=== PATIENT | female | born 1955 | race Caucasian/White ===

== ENCOUNTER 2024-12-03 08:13 | Outpatient (AMB) | payer BC, SELFPAY ==
--- NOTE | 2024-12-03 08:19 | A.OFFPC_ITS ---
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 Required: No Allergies Penicillins Allergy (Severe, Verified 12/03/24 08:28) Unknown Sulfa (Sulfonamide Antibiotics) Allergy (Severe, Verified 12/03/24 08:28) Unknown lisinopril hctz Allergy (Severe, Uncoded 12/03/24 08:28) Anaphylaxis gentamycin Allergy (Mild, Uncoded 12/03/24 09:05) Itchy Eyes Medication List - Last Reviewed 12/03/24 by Cirilo Krueger MA amlodipine 10 mg PO DAILY blood sugar diagnostic (OneTouch Verio test strips) As directed blood sugar diagnostic (Blood Glucose Test strips) As directed buspirone 5 mg PO ONCE clobetasol 0.05% 1 appl topical BID clonidine HCl 0.05 mg PO DAILY fluconazole 150 mg PO Q3D lancets (OneTouch Delica Plus Lancet) As directed loratadine (Allergy Relief (loratadine)) 10 mg PO DAILY losartan 100 mg PO DAILY metformin 1,000 mg PO BID methocarbamol 750 mg PO Q8H naproxen 500 mg PO BID pantoprazole 40 mg PO DAILY semaglutide (Ozempic) 2 mg subcut QWEEK Tobacco use date assessed: 12/03/24 Fall risk assessment: 1 Fall in past year (trip over ) Last assessed Fall Risk: 12/03/24 Dental Screening Dental Screen Date: 12/03/24 Did you have a dental visit in the last 12 months?: No Did you have a dental problem in the last 6 months where you did not have access to dental care?: No Was dental information given to patient?: Patient declined HPI HPI Comments History of Present Illness Details 69-year-old female with diabetes type 2 with complication, hypertension, hyperlipidemia, fatty liver, obesity, chronic back pain, seasonal allergies, GERD Status post multiple orthopedic surgeries to include spinal surgery Here today to establish care. Recently moved from [place]. No previous medical records available. The patient reports that she was experiencing exertional shortness of breath associated with upper back pain. This has been ongoing for a few months. Reports that she was seen by a auditing manager and had a stress test done in [place] and reports that it was within normal limits. She reports that since this time her symptoms have worsened. She states she was able to walk 10,000 steps now she was only able to walk 3000 steps before she starts to experience symptoms. She denies any smoking. She also reports uncontrolled blood pressure. Her amlodipine was increased from 5 mg to 10 mg by her previous PCP in [place]. This has improved her reading some however she continues with high blood pressure. She monitors at home. The lowest that she has gotten is 150/78. She denies any swelling in her lower extremities. She was report chronic vomiting which she correlates with elevated blood pressure readings. She was also on Ozempic. She is unsure if the vomiting started before or after the Ozempic. The Ozempic is being used to manage her diabetes. She also takes a PPI for her chronic acid reflux and for vomiting. She reports a history of liver biopsy in the past. In regards to her diabetes management her A1c was done today and a 6.4%. She was managed on metformin along with Ozempic. She reports that she can not afford her Ozempic and wonders if she can change to something like an SGLT2 inhibitor. She is overdue for diabetic eye exam and we will be referred today. She complains of subjective memory complaints. Has a strong family history of Alzheimer's in his worried that she will develop Alzheimer's. She is interested in the neurology referral. Has generalized anxiety which is managed with buspirone. Health Maintenance: UTD on Flu Tdap 2020 Colon due for repeat Mammo DEXA Pap Exam Awake alert oriented Regular rate and rhythm Lung sounds clear to auscultation bilat No edema to bilateral lower extremities. Positive varicose veins. Mood and affect appropriate. No cognitive impairments noted during exam today Plan Referral to gastroenterology for her vomiting along with history of colonic polyps. Refer to Cardiology in order a stress test to evaluate her complaints of shortness of breath and pain that radiates into her back. Referral to Ophthalmology for a diabetic eye exam. Referral to Neurology for her concerns for Alzheimer's. Check routine screening labs to include some specific to address her neurological complaints. Continue all medications at the current time. Recommend a close interim follow up in about 3 weeks. Total time spent caring for the patient today was 60 minutes. This includes time spent before the visit reviewing the chart, time spent during the visit, and time spent after the visit on documentation, reviewing laboratory results, diagnostic imaging, medications, performing a medically necessary evaluation, counseling on diagnoses, care coordination, ordering appropriate tests, ordering appropriate medications, review of tests performed by other providers, reporting test results with the patient, communication with other healthcare providers. [facility] Medical History (Updated 12/03/24 @ 17:08 by VERONICA OrrTERRELL) Abnormal colonoscopy Anxiety Diabetes Exhaustion Hypertension Memory change Surgical History (Updated 12/03/24 @ 17:08 by MISA Orr) H/O cervical spine surgery H/O section H/O elbow surgery H/O eye surgery H/O wrist surgery History of back surgery Family History (Updated 12/03/24 @ 08:36 by Cirilo Krueger MA) Sister Mental health disorder Substance abuse Cardiovascular disease Hypertension Thyroid disease Advancing dementia Brother Cancer Cardiovascular disease Hypertension Paternal Grandfather Cancer Father Cardiovascular disease Hypertension Mother Hypertension Daughter Thyroid disease Social History (Updated 12/03/24 @ 08:31 by Cirilo Krueger MA) Household Members: Spouse Both parents involved: No Caregiver staying overnight: No Housing: House Are you a primary care navigator to a significant other at home: No Do you presently have visiting nurse or other home services: No 75 years or older and lives alone: No Alcohol intake: current Alcohol intake frequency: a few times a month Patient Tobacco Use Status: Never used Tobacco e-Cigarette/Vaping Use: Never Used Second Hand Smoke Exposure: No service: No Current occupational status: retired Cognitive needs: No Hearing needs: No Vision needs: No Questionnaire PHQ-9 Over the last 2 weeks, how often have you been bothered by any of the following problems? 1. Little interest or pleasure in doing things: not at all 2. Feeling down, depressed, or hopeless: not at all 3. Trouble falling or staying asleep, or sleeping too much: several days 4. Feeling tired or having little energy: nearly every day 5. Poor appetite or overeating: not at all 6. Feeling bad about yourself - or that you are a failure or have let yourself or your family down: not at all 7. Trouble concentrating on things, such as reading the newspaper or watching television: not at all 8. Moving or speaking so slowly that other people could have noticed. Or the opposite - being so fidgety or restless that you have been moving around a lot more than usual: not at all 9. Thoughts that you would be better off or of hurting yourself in some way: not at all Total score: 4 Depression Screening Interpretation: Positive Depression Screening Follow-up: Existing condition Depression Screening Done: Yes 14164 - PHQ-9 Billing: Yes Source: Developed by Drs. Bashir Pillai, Vivienne Brower, Kendall Meehan and colleagues, with an educational yuki from [employer]. Thrive Questionnaire Date Thrive assessed: 12/03/24 I am a: Patient What is your living situation today?: I have a steady place to live Within the past 12 months, did the food you bought not last and you didn't have the money to get more?: Never true Within the past 12 months, did you worry whether your food would run out before you got money to buy more?: Never true Do you have trouble paying for medicines?: No Do you have trouble getting transportation to medical appointments?: No Do you have trouble paying your heating and electricity bill?: No Do you have trouble taking care of your child, family member or friend?: No Do you have trouble with day-to-day activities such as bathing, preparing meals, shopping, managing finances, etc.?: No Are you currently unemployed and looking for a job?: No Are you interested in more education?: No Please select the resources that you would like help with: None Currently or been in a relationship where the following occur: No concerns reported THRIVE Score: 0 AUDIT C Alcohol Use Questionnaire (AUDIT-C) 1. How often do you have a drink containing alcohol?: Never 2. How many drinks containing alcohol do you have on a typical day when you are drinking?: 1 or 2 3. How often do you have six or more drinks on one occasion?: Never Total Score: 0 Score Reviewed/Action Taken: Yes KAREN-7 AMB Questionnaire KAREN-7 Date KAREN - 7 assessed: 12/03/24 Feeling nervous, anxious, or on edge: 0 = Not at all Not being able to stop or control worryin = Not at all Worrying too much about different things: 0 = Not at all Trouble relaxin = Not at all Being so restless that it is hard to sit still: 0 = Not at all Becoming easily annoyed or irritable: 0 = Not at all Feeling afraid as if something awful might happen: 0 = Not at all Total KAREN-7 score (0-4 normal; 5-9 mild; 10-14 moderate; 15-21 severe): 0 Source: Developed by Drs. Bashir Pillai, Vivienne Brower, Kendall Meehan and colleagues, with an educational yuki from [employer]. KAREN-7 Assessment Billing KAREN-7 Assessment Tool: KAREN-7 Assessment 57355 Physical exam (Primary Care) Vital Signs: Last Vital Signs Temp 96.9 F 12/03/24 08:39 Pulse 90 12/03/24 08:39 Resp 13 12/03/24 08:39 BP 142/78 H 12/03/24 08:39 Pulse Ox 96 12/03/24 08:39 Oxygen Delivery Method Room Air 12/03/24 08:39 BMI result Body Mass Index 34.0 BMI Assessment/Plan discussion: High BMI High, discussed plan: lifestyle Tobacco/Smoking Status: Tobacco use Status Tobacco use date assessed 12/03/24 12/03/24 08:51 Patient Tobacco Use Status Never used Tobacco 12/03/24 08:51 e-Cigarette/Vaping Use Never Used 12/03/24 08:51 PHQ-9: PHQ-9 Score PHQ-9: Total score 4 12/03/24 13:10 Depression Screening Interpretation: Positive Depression Screening Follow-up: Existing condition Thrive Assessment: Date of Thrive Assessment Date Thrive assessed 12/03/24 12/03/24 08:21 Currently or been in a relationship where the following occur: No concerns reported Results AMB Hemoglobin A1c AMB Hemoglobin A1c 6.4 % Last Edit by Cirilo Krueger MA on 12/03/24 10:02 Results Reviewed Results Reviewed: Laboratory Last Values Hgb A1c (Clinic) 6.4 % (4.0-6.0) H 12/03/24 08:56 Coding Level of Care Code New Pt Level 5 (23060) Complex EM visit Add On G2211 Diagnoses Diabetes mellitus type 2 with complications E11.8 Exertional shortness of breath R06.02 Iron deficiency anemia, unspecified iron deficiency anemia type D50.9 Iron deficiency anemia type: unspecified iron deficiency 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 Subjective memory complaints R41.89 Family history of Alzheimer disease Z82.0 Nausea and vomiting, unspecified vomiting type R11.2 Vomiting type: unspecified Nausea presence: with nausea Polyp of colon, unspecified part of colon, unspecified type K63.5 Colon polyp type: unspecified Colon location: unspecified part of colon Status post cataract extraction, unspecified laterality Z98.49 Laterality: unspecified laterality BMI 34.0-34.9,adult Z68.34 Obesity (BMI 30.0-34.9) E66.811 Additional Codes KAREN-7 Assessment Billing - KAREN-7 Assessment Tool: KAREN-7 Assessment 40414 ([id number]) PHQ-9 - 01798 - PHQ-9 Billing: Yes ([id number]) Assessment & Plan Assessment & Plan (1) Diabetes mellitus type 2 with complications: Comment: htn and hld Code(s): E11.8 - Type 2 diabetes mellitus with unspecified complications Category: Medical (2) Exertional shortness of breath: Code(s): R06.02 - Shortness of breath Category: Medical (3) Iron deficiency anemia: Code(s): D50.9 - Iron deficiency anemia, unspecified Category: Medical Qualifiers: Iron deficiency anemia type: unspecified iron deficiency Qualified Code(s): D50.9 - Iron deficiency anemia, unspecified (4) Hypertension: Code(s): I10 - Essential (primary) hypertension Category: Medical Qualifiers: Hypertension type: secondary to endocrine disorders Qualified Code(s): I15.2 - Hypertension secondary to endocrine disorders (5) Subjective memory complaints: Code(s): R41.89 - Other symptoms and signs involving cognitive functions and awareness Category: Medical (6) Family history of Alzheimer disease: Code(s): Z82.0 - Family history of epilepsy and other diseases of the nervous system Category: Medical (7) Vomiting: Code(s): R11.10 - Vomiting, unspecified Category: Medical Qualifiers: Vomiting type: unspecified Nausea presence: with nausea Qualified Code(s): R11.2 - Nausea with vomiting, unspecified (8) Colon polyp: Code(s): K63.5 - Polyp of colon Category: Medical Qualifiers: Colon polyp type: unspecified Colon location: unspecified part of colon Qualified Code(s): K63.5 - Polyp of colon (9) S/P cataract extraction: Code(s): Z98.49 - Cataract extraction status, unspecified eye Category: Surgical Qualifiers: Laterality: unspecified laterality Qualified Code(s): Z98.49 - Cataract extraction status, unspecified eye (10) BMI 34.0-34.9,adult: Code(s): Z68.34 - Body mass index [BMI] 34.0-34.9, adult Category: Medical (11) Obesity (BMI 30.0-34.9): Code(s): E66.811 - Obesity, class 1 Category: Medical Plan: . Plan . Orders: Orders Complete Blood Count no Diff Today E11.8 - Type 2 diabetes mellitus with unspecified complications, I10 - Essential (primary) hypertension, R41.89 - Other symptoms and signs involving cognitive functions and awareness Comprehensive Met. Panel Today E11.8 - Type 2 diabetes mellitus with unspecified complications, I10 - Essential (primary) hypertension, R41.89 - Other symptoms and signs involving cognitive functions and awareness Microalbumin, Random (w Creat) Today E11.8 - Type 2 diabetes mellitus with unspecified complications, I10 - Essential (primary) hypertension, R41.89 - Other symptoms and signs involving cognitive functions and awareness Vitamin B12 and Folate Today E11.8 - Type 2 diabetes mellitus with unspecified complications, I10 - Essential (primary) hypertension, R41.89 - Other symptoms and signs involving cognitive functions and awareness AMB Hemoglobin A1c Today Z13.9 - Encounter for screening, unspecified CA stress test Today I10 - Essential (primary) hypertension, R06.02 - Shortness of breath IRON PROFILE Today E11.8 - Type 2 diabetes mellitus with unspecified complications, I10 - Essential (primary) hypertension, R41.89 - Other symptoms and signs involving cognitive functions and awareness Lipid Panel Today E11.8 - Type 2 diabetes mellitus with unspecified complications, I10 - Essential (primary) hypertension, R41.89 - Other symptoms and signs involving cognitive functions and awareness TSH reflex Free T4 Today E11.8 - Type 2 diabetes mellitus with unspecified complications, I10 - Essential (primary) hypertension, R41.89 - Other symptoms and signs involving cognitive functions and awareness Vitamin D 25-OH Total Today E11.8 - Type 2 diabetes mellitus with unspecified complications, I10 - Essential (primary) hypertension, R41.89 - Other symptoms and signs involving cognitive functions and awareness Syphilis Screen Today R41.89 - Other symptoms and signs involving cognitive functions and awareness Referrals Gastroenterology Referral K63.5 - Polyp of colon, R11.10 - Vomiting, unspecified, Z12.11 - Encounter for screening for malignant neoplasm of colon Ophthalmology Referral E11.8 - Type 2 diabetes mellitus with unspecified complications, Z98.49 - Cataract extraction status, unspecified eye Cardiology Referral I10 - Essential (primary) hypertension, R06.02 - Shortness of breath Neurology Referral R41.89 - Other symptoms and signs involving cognitive fun ctions and awareness, Z82.0 - Family history of epilepsy and other diseases of the nervous system Patient Instructions: Walk-In Care (Urgent Care): We Make it Easy Walk-in for urgent medical issues such as: ? Seasonal Allergies ? Insect Bites ? Cough ? Diarrhea ? Acute Asthma Attacks ? Back, Knee or Joint Pain ? Ear Infection ? Fever without a Rash ? Headaches ? Nausea ? [place] Eye, Rash or Skin Irritation ? Sore Throat ? Sports Physicals ? Vomiting Most insurances are accepted. Patients do not need to be part of the [facility] to seek care at the walk-in clinic. Locations [facility] , [place] [address] ? [phone] [facility] in [place] provides services to ages 18 and over. Open Monday-Monday: 8 a.m. to 5 p.m. and Monday: 9 a.m. to 3 p.m.* *Hours may vary due to staffing availability. To confirm Walk-In Care hours in [place], please call [phone]. [address] [place] [address] ? [phone] [facility] [place] provides services to ages 12 and over. Open Monday-Monday: 8 a.m. to 5 p.m. Hours may vary due to staffing availability. To confirm Walk-In Care hours in [place], please call [phone]. LABORATORY SERVICES: [facility] Lab ? Primary Location [address] [place] [address] Monday through Monday 6:00 AM ? 5:00 PM Monday 7:00 AM ? 11:00 AM* [phone] The [facility] Lab is centrally located near the front entrance of the Medical Center for easy outpatient access. Convenient parking is provided for outpatients. *Hours may vary due to staffing availability. To confirm Laboratory hours for any location, please call [phone]. Offsite Location For your convenience, we offer offsite laboratory draw stations at the following locations: [address] [place] [address], [facility] ? [facility] [address] [facility], [address], [place] Monday through Monday 7:30 AM ? 1:00 PM* [phone] *Hours may vary due to staffing availability. To confirm Laboratory hours for any location, please call [phone]. [place] ? [address], [place] Monday through Monday 6:00 AM ? 3:30 PM* Monday 6:30 AM ? 3 PM* [phone] *Hours may vary due to staffing availability. To confirm Laboratory hours for any location, please call [phone] [place] [address] Monday through Monday 7:30 AM ? 4:00 PM* [phone] *Hours may vary due to staffing availability. To confirm Laboratory hours for any location, please call [phone] [place] [address] Monday through 9:00 AM ? 4:00 PM* *Hours may vary due to staffing availability. To confirm Laboratory hours for any location, please call [phone]. Appointments are not necessary. Walk-ins are welcome. Like all the departments throughout the [facility], our Lab undergoes frequent reviews to ensure the quality and accuracy of test results, and our staff takes special pride in its status as a nationally accredited facility. Patient Portal: ONE PATIENT. ONE RECORD. BETTER CARE. [facility] has a fully integrated, cutting- edge mobile electronic health information system that has revolutionized the way we care for our patients and manage our organization. This system improves communication and coordination enabling us to provide safe, higher-quality care, and an overall positive experience for staff and patients. Our first priority, as always, is to deliver the highest quality care possible. The system is running in the background supporting that priority. This portal is for all [facility] services and practices. If you are experiencing any technical difficulties with enrolling or logging into the Patient Portal please complete the [facility] Patient Portal Technical Support Form. [facility] now offers a new secure on-line interactive tool for patients to review their health information ? Patient Portal. This interactive web portal will enable patients and their families to take an active role in their care by providing easy, secure access to their health information via the internet. The Patient Portal provides patients with instant access to their health information, including laboratory results, medications, allergies, demographic information, visit history, and more. In addition to managing their own care, parents and health care proxies with authorized consent will appreciate the ability to access the records of those individuals for whom they provide care. Please note: if you wish to gain access (Proxy) to another patient?s portal, you will be required to come to the Medical Records Department in person at [facility]. Both the patient giving proxy access and the proxy will need to provide photo identification and complete the appropriate authorization. The Patient Portal also allows track their appointments online. The [facility] Patient Portal also saves patients time by allowing them to submit updates to their demographic and contact information prior to their visits. Portal email notifications will also alert patients to any new activity on their portal, such as test results and new appointments. In order to initially enroll in the [facility] Patient Portal, you will need to enter some required information including the following: ? your [facility] Medical Record number ? your personal home email address ? name ? date of Please note: In order to enroll in the [facility] Patient Portal, we need to have your email address on file in your electronic medical record. The email address needs to be specific for one person (yourself) in order for your Portal enrollment to be successful. You can update your email address in person with our Registration staff when you are registering for a hospital visit. Otherwise, you will need to come to the Health Information Management (Medical Records) Department at [facility]. We are open from Monday ? Monday from 7:30 a.m. ? 4:30 p.m. You will be required to present a photo id. Once you have successfully enrolled in the Patient Portal, you will receive a one-time user id and password for the Portal, sent to your email address. This will allow you to log into the Patient Portal within 99 hrs and reset your own logon id and password, and define personal security questions. Once your permanent login and password have been set, you can log into the [facility] Patient Portal at any time via the blue button above or from the Portal Logon button on any page of the [facility] website. [facility] encourage all of our patients to enroll in Patient Portal as it presents a valuable opportunity for patients and their families to actively participate in their care and stay healthy Welcome to [facility]. We look forward to working with you.
[2024-12-03 08:39] VITALS: BP 142/78; PULSE 90; RESP 13; TEMP 36.1; O2SAT 96; BMI 34.0
== END 2024-12-03 09:19 | disposition home or self-care (01) ==
PROVIDERS: PCP Nurse Practitioner Family; Visit Provider Nurse Practitioner Family
DX: E11.8 Type 2 diabetes mellitus with unspecified complications (principal); R06.02 Shortness of breath; D50.9 Iron deficiency anemia, unspecified; I15.2 Hypertension secondary to endocrine disorders; R41.89 Other symptoms and signs involving cognitive functions and awareness; Z82.0 Family history of epilepsy and other diseases of the nervous system; R11.2 Nausea with vomiting, unspecified; K63.5 Polyp of colon; Z98.49 Cataract extraction status, unspecified eye; Z68.34 Body mass index [BMI] 34.0-34.9, adult; E66.811 Obesity, class 1

== ENCOUNTER → 2024-12-03 08:13 | Outpatient (BNVA) | payer BC, SELFPAY | PROVIDERS: PCP Nurse Practitioner Family; Visit Provider Nurse Practitioner Family | DX: E11.8 Type 2 diabetes mellitus with unspecified complications (principal); R06.02 Shortness of breath; D50.9 Iron deficiency anemia, unspecified; I15.2 Hypertension secondary to endocrine disorders; R41.89 Other symptoms and signs involving cognitive functions and awareness; R11.2 Nausea with vomiting, unspecified; K63.5 Polyp of colon; E66.811 Obesity, class 1; Z98.49 Cataract extraction status, unspecified eye; Z82.0 Family history of epilepsy and other diseases of the nervous system | CPT/HCPCS: 83036; 96127 ==

== ENCOUNTER 2024-12-03 09:41 | Outpatient (REF) | payer BC, SELFPAY ==
[2024-12-03 11:22] LABS: Hematocrit 44.2 % (37.0-47.0); Hemoglobin 14.9 g/dl (12.0-16.0); Mean Corpuscular HGB Conc 33.7 g/dl (31.0-35.0); Mean Corpuscular Hemoglobin 31.2 pg (27.0-33.0); Mean Corpuscular Volume 92.7 fL (80.0-98.0); Mean Platelet Volume 9.4 fL (9.4-12.3); Platelet Count 298 X10*3/uL (160-400); Red Blood Count 4.77 X10*6/uL (4.20-5.50); Red Cell Distribution Width 12.2 % (11.0-16.0); White Blood Count 6.3 X10*3/uL (4.8-10.8)
[2024-12-03 12:02] LABS: Creatinine Urine 27.68 mg/dL; Microalbum/Creatinine Ratio Ur 50.5 ug/mg cr (<30)
[2024-12-03 12:02] LABS: Syphilis Screen Nonreactive (Nonreactive)
[2024-12-03 12:16] LABS: Alanine Aminotransferase 114 U/L (0-31); Albumin Level 4.6 g/dL (3.5-5.0); Alkaline Phosphatase 172 U/L (39-117); Anion Gap 11 (12-20); Aspartate Amino Transferase 98 U/L (5-31); Bilirubin Total 0.4 mg/dL (0.0-1.0); Blood Urea Nitrogen 11 mg/dL (9-16); Calcium 10.4 mg/dL (8.4-10.2); Carbon Dioxide 28 mmol/L (22-29); Chloride 100 mmol/L (96-108); Cholesterol 177 mg/dL (<200); Estimated Glomerular Filt Rate > 60; Glucose Random 86 mg/dL (60-115); HDL Cholesterol 45 mg/dL (>40); Iron 134 mcg/dL (30-160); LDL Cholesterol Calculated 106 mg/dL (<100); Percent Iron Saturation 35 % (15-50); Potassium 4.1 mmol/L (3.3-5.1); Sodium 135 mmol/L (135-145); Total Iron Binding Capacity 386 mcg/dL (228-428); Total Protein 8.4 g/dL (6.5-8.0); Triglycerides 132 mg/dL (<150); Unsaturated Iron Binding 252 ug/dL
[2024-12-03 12:23] LABS: TSH reflex Free T4 2.01 uIU/mL (0.32-4.0); Vitamin D 25-OH Total 84.9 ng/mL (>30)
[2024-12-03 13:14] LABS: Folate > 20.0 ng/mL (> or = 4.0); Vitamin B12 236 pg/mL (200-900)
== END 2024-12-03 09:42 | disposition home or self-care (01) ==
LOC: HO.WFDLDS 09:41
PROVIDERS: Visit Provider Nurse Practitioner Family
DX: I10 Essential (primary) hypertension (principal); E11.8 Type 2 diabetes mellitus with unspecified complications; R41.89 Other symptoms and signs involving cognitive functions and awareness; Z79.899 Other long term (current) drug therapy
CPT/HCPCS: 36415; 80053; 80061; 82043; 82306; 82570; 82607; 82746; 83540; 84443; 85027; 86780

== ENCOUNTER → 2024-12-12 07:46 | Outpatient (BNV) | payer BC, SELFPAY | PROVIDERS: PCP Nurse Practitioner Family | DX: R06.02 Shortness of breath (principal); I49.3 Ventricular premature depolarization | CPT/HCPCS: 93016; 93018 ==

== ENCOUNTER 2024-12-18 07:49 | Outpatient (AMB) | payer BC, SELFPAY ==
--- NOTE | 2024-12-18 08:11 | MHC.PC.OV ---
Vital Signs 12/18/24 08:14 Height 5 ft Weight 173 lb 8 oz BMI 33.9 BP 124/70 Blood Pressure Location Rt brachial Position Sitting Respiration 14 Pulse 82 Pulse Source Pulse Oximeter Pulse Oximetry (%) 95 Oxygen Delivery Method Room Air Intake Visit Reasons: 3 weeks 30 min to fu on labs and stress test Intake Note: FOllow up lab results and stress test. Sore on toe, right foot. Edi Manager Required: No Allergies Penicillins Allergy (Severe, Verified 12/18/24 08:11) Unknown Sulfa (Sulfonamide Antibiotics) Allergy (Severe, Verified 12/18/24 08:11) Unknown adhesive Allergy (Intermediate, Verified 12/18/24 08:12) red patches lisinopril hctz Allergy (Severe, Uncoded 12/18/24 08:11) Anaphylaxis gentamycin Allergy (Mild, Uncoded 12/18/24 08:11) Itchy Eyes Medication List - Last Reconciled 12/18/24 by Ngoc Ordonez, STRUCTURED CABLING TECHNICIAN- amlodipine 10 mg PO DAILY blood sugar diagnostic (Gr8erMindsTouch Verio test strips) As directed blood sugar diagnostic (Blood Glucose Test strips) As directed buspirone 5 mg PO ONCE clobetasol 0.05% 1 appl topical BID clonidine HCl 0.05 mg PO DAILY dapagliflozin propanediol (Farxiga) 5 mg PO DAILY ferrous sulfate 325 mg PO DAILY lancets (Gr8erMindsTouch Delica Plus Lancet) As directed loratadine (Allergy Relief (loratadine)) 10 mg PO DAILY losartan 100 mg PO DAILY metformin 1,000 mg PO BID methocarbamol 750 mg PO Q8H naproxen 500 mg PO BID pantoprazole 40 mg PO DAILY Tobacco use date assessed: 12/18/24 Fall risk assessment: No Falls in past year Last assessed Fall Risk: 12/18/24 Dental Screening Dental Screen Date: 12/03/24 HPI HPI Comments History of Present Illness Details 69-year-old female with diabetes type 2 with complication, hypertension, hyperlipidemia, fatty liver, obesity, chronic back pain, seasonal allergies, GERD, b12 def Status post multiple orthopedic surgeries to include spinal surgery Health Maintenance: UTD on Flu Tdap 2020 Colon due for repeat Mammo ordered today DEXA ordered today Pap referred to [facility]o appt 12/25/24 Neuro Here today for routine follow up chronic conditions and discuss recent lab results. DM on metformin a1c 6.4 referred for dm eye + microalbum on ARB HTN controlled on current meds ^ LFT denies etoh use. No more vomiting after stopping ozempic. Liver bx 10 years ago in [place]. Referred to GI at last visit. Denies abd pain. Taking OTC vitamins/supplements B12 def w/o anemia: Reports normal diet, no etoh. HX of Iron def anemia : on Ferrous sulfate CBC and Iron WNL PARRA and CP: abnormal stress test. Nuc imaging waiting insurance auth. NO changes R 2nd toe: s/p pedicure, now w/ pustulse, pain near nail bed. Started a few days ago. Denies fever, chills. : vaginal dryness and irritation, worse w intercourse. Using steroids and lotion w/o relief Exam Awake alert oriented Regular rate and rhythm Lung sounds clear to auscultation bilat No edema to bilateral lower extremities. Positive varicose veins. Mood and affect appropriate. No cognitive impairments noted during exam today Right foot: Results: Labs from 12/03/2024 show a normal CBC, normal electrolytes, hemoglobin A1c of 6.4%, calcium of 10.4%, normal iron profile, elevated AST 98, elevated ALT 114, elevated alk phos 172, elevated total protein at 8.4, LDL 106 otherwise normal cholesterol profile, B12 the low end of normal at 236, vitamin-D normal 84.9, normal folate, normal TSH, elevated urine microalbumin creatinine ratio 58.5, syphilis negative Discussion Notes During today's visit, I discussed with the patient the implications of her previous abnormal stress test linked to episodes of exertional chest pain and dyspnea. A nuclear stress test has been advised, pending insurance authorization. I elaborated on the status of her diabetes management and suggested starting Farxiga, emphasizing that we aim to lower her A1c closer to 6%. Recognizing her vitamin B12 deficiency, I proposed supplementation with B12 2000 mcg daily. We explored treatment routes for her abnormal LFTs, potentially accentuated by past liver biopsy findings, directing her to a loss control representative for a comprehensive evaluation. For her gynecological concerns, I transitioned management to a specialist. Additionally, I recommended proper hygiene and antibiotics for the nail infection and reiterated the importance of adequate hydration and nutritional measures. We arranged for follow-up meetings to assess the effectiveness of the new medications and address any emerging health issues. Assessment and Plan 1. Paronychia: Prescribed doxycycline; discourage self-manipulation; recommend soaking in warm water with Epsom salt. 2. History Of Abnormal Stress Test With Exertional Symptoms Referral for nuclear stress testing upon insurance clearance; control contributory risk factors such as hypertension and diabetes. 3. Vitamin B12 Deficiency Start oral supplementation with B12; reassess levels during the next lab workup to ensure normalization. 4. Postmenopausal atrophic vaginitis Referral to gynecology; discussion of possible topical estrogen treatment; emphasize avoidance of topical steroids. 6. Hyperlipidemia Monitor cholesterol levels; dietary consulting, emphasizing lowering LDL-C; maintain prescribed agents as previously managed unless further lipidogram prompts a revisit. 7. Type 2 Diabetes Mellitus Continue metformin therapy; initiate Farxiga to improve glycemic control and provide renal and cardiovascular protection; recommend monitoring A1C levels in follow-up visits. 9. Elevated LFT: Referral to loss control representative for further exploration; prioritize potential contributing factors including medication and dietary habits. Mammo, DEXA ordered Patient was informed and verbally consented to the use of an ambient scribe for clinic note documentation during this visit. Patient Instructions - Start taking Farxiga as instructed in the morning with increased water intake. - Begin B12 supplement of 2000 mcg daily. - Use prescribed antibiotics for your foot infection. - Schedule and attend follow-up with a loss control representative regarding liver function. - Keep appointment with vice president compliance to address vaginal atrophy concerns. - For high copay issues with prescribed medications, reach out via patient portal. - Keep hydrated throughout the day to support renal health. - Resume dietary management for diabetes with goals to reduce HbA1c closer to 6%. - Attend scheduled mammogram and bone density screening around due time. - Report any unusual changes like persistent foot sore, unexpected infections, or discomfort. - Plan to return for follow-up in approximately 12 weeks, or sooner if required via portal outreach. Total time spent caring for the patient today was 45 minutes. This includes time spent before the visit reviewing the chart, time spent during the visit, and time spent after the visit on documentation, reviewing laboratory results, diagnostic imaging, medications, performing a medically necessary evaluation, counseling on diagnoses, care coordination, ordering appropriate tests, ordering appropriate medications, review of tests performed by other providers, reporting test results with the patient, communication with other healthcare providers. [facility] Medical History (Updated 12/18/24 @ 08:49 by Ngoc Ordonez, [facility]) Abnormal colonoscopy Anxiety Diabetes Exhaustion Hypertension Memory change Surgical History (Updated 12/03/24 @ 17:08 by Ngoc Ordonez [facility]) H/O cervical spine surgery H/O section H/O elbow surgery H/O eye surgery H/O wrist surgery History of back surgery Family History (Updated 12/03/24 @ 08:36 by Cirilo Krueger MA) Sister Mental health disorder Substance abuse Cardiovascular disease Hypertension Thyroid disease Advancing dementia Brother Cancer Cardiovascular disease Hypertension Paternal Grandfather Cancer Father Cardiovascular disease Hypertension Mother Hypertension Daughter Thyroid disease Social History (Updated 12/03/24 @ 08:31 by Cirilo Krueger MA) Household Members: Spouse Both parents involved: No Caregiver staying overnight: No Housing: House Are you a primary care support representative to a significant other at home: No Do you presently have visiting nurse or other home services: No 75 years or older and lives alone: No Alcohol intake: current Alcohol intake frequency: a few times a month Patient Tobacco Use Status: Never used Tobacco e-Cigarette/Vaping Use: Never Used Second Hand Smoke Exposure: No service: No Current occupational status: retired Cognitive needs: No Hearing needs: No Vision needs: No Questionnaire Thrive Questionnaire Date Thrive assessed: 11/27/24 I am a: Patient What is your living situation today?: I have a steady place to live Within the past 12 months, did the food you bought not last and you didn't have the money to get more?: Never true Within the past 12 months, did you worry whether your food would run out before you got money to buy more?: Never true Do you have trouble paying for medicines?: No Do you have trouble getting transportation to medical appointments?: No Do you have trouble paying your heating and electricity bill?: No Do you have trouble taking care of your child, family member or friend?: No Do you have trouble with day-to-day activities such as bathing, preparing meals, shopping, managing finances, etc.?: No Are you currently unemployed and looking for a job?: No Are you interested in more education?: No Please select the resources that you would like help with: None Currently or been in a relationship where the following occur: No concerns reported THRIVE Score: 0 KAREN-7 AMB Questionnaire KAREN-7 Date KAREN - 7 assessed: 12/03/24 Source: Developed by Drs. Bashir Pillai, Vivienne Brower, Kendall Meehan and colleagues, with an educational yuki from [employer]. Physical exam (Primary Care) Vital Signs: Last Vital Signs Pulse 82 12/18/24 08:14 Resp 14 12/18/24 08:14 BP 124/70 12/18/24 08:14 Pulse Ox 95 12/18/24 08:14 Oxygen Delivery Method Room Air 12/18/24 08:14 BMI result Body Mass Index 33.9 Tobacco/Smoking Status: Tobacco use Status Tobacco use date assessed 12/18/24 12/18/24 08:16 Patient Tobacco Use Status Never used Tobacco 12/18/24 08:16 e-Cigarette/Vaping Use Never Used 12/18/24 08:16 Thrive Assessment: Date of Thrive Assessment Date Thrive assessed 11/27/24 12/18/24 08:16 Currently or been in a relationship where the following occur: No concerns reported Coding Level of Care Code Est Pt Level 5 (32028) Complex EM visit Add On G2211 Diagnoses Abnormal stress test R94.39 Exertional shortness of breath R06.02 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 B12 deficiency E53.8 Elevated LFTs R79.89 Paronychia of second toe, right L03.031 Menopause Z78.0 Diabetes mellitus type 2 with complications E11.8 Vaginal atrophy N95.2 Assessment & Plan Assessment & Plan (1) Abnormal stress test: Code(s): R94.39 - Abnormal result of other cardiovascular function study Category: Medical (2) Exertional shortness of breath: Code(s): R06.02 - Shortness of breath Category: Medical (3) Hypertension: Code(s): I10 - Essential (primary) hypertension Category: Medical Qualifiers: Hypertension type: secondary to endocrine disorders Qualified Code(s): I15.2 - Hypertension secondary to endocrine disorders (4) B12 deficiency: Code(s): E53.8 - Deficiency of other specified B group vitamins Category: Medical (5) Elevated LFTs: Code(s): R79.89 - Other specified abnormal findings of blood chemistry Category: Medical (6) Paronychia of second toe, right: Code(s): L03.031 - Cellulitis of right toe Category: Medical (7) Menopause: Code(s): Z78.0 - Asymptomatic menopausal state Category: Medical (8) Diabetes mellitus type 2 with complications: Comment: htn and hld Code(s): E11.8 - Type 2 diabetes mellitus with unspecified complications Category: Medical (9) Vaginal atrophy: Code(s): N95.2 - Postmenopausal atrophic vaginitis Category: Medical Plan . Orders: Orders XR DEXA axial skeleton Today Z13.820 - Encounter for screening for osteoporosis, Z78.0 - Asymptomatic menopausal state MM tomosynthesis screening BI Today Z12.31 - Encounter for screening mammogram for malignant neoplasm of breast Referrals HEATING AND COOLING TECHNICIAN Referral N95.2 - Postmenopausal atrophic vaginitis, Z12.4 - Encounter for screening for malignant neoplasm of cervix Medications: New doxycycline hyclate 100 mg PO BID 14 caps 0RF 7 days dapagliflozin propanediol (Farxiga) 5 mg PO DAILY 90 tabs 0RF mecobalamin (vitamin B12) (B12 Active) ok to dispense what is available 2,000 mcg (2 x 1,000 mcg) PO DAILY 180 tabs 3RF
[2024-12-18 08:14] VITALS: BP 124/70; PULSE 82; RESP 14; O2SAT 95; BMI 33.9
== END 2024-12-18 08:55 | disposition home or self-care (01) ==
PROVIDERS: PCP Nurse Practitioner Family; Visit Provider Nurse Practitioner Family
DX: R94.39 Abnormal result of other cardiovascular function study (principal); R06.02 Shortness of breath; E11.8 Type 2 diabetes mellitus with unspecified complications; I15.2 Hypertension secondary to endocrine disorders; E53.8 Deficiency of other specified B group vitamins; R79.89 Other specified abnormal findings of blood chemistry; N95.2 Postmenopausal atrophic vaginitis; L03.031 Cellulitis of right toe; Z78.0 Asymptomatic menopausal state; Z68.33 Body mass index [BMI] 33.0-33.9, adult

== ENCOUNTER → 2024-12-18 07:49 | Outpatient (BNVA) | payer BC, SELFPAY | PROVIDERS: PCP Nurse Practitioner Family; Visit Provider Nurse Practitioner Family ==

== ENCOUNTER 2024-12-23 20:06 | Emergency (ER) | payer BC, SELFPAY ==
--- NOTE | ~2024-12-23 | XR_ITS ---
CLINICAL HISTORY: CP Chest X-ray, 2 Views COMPARISON: None FINDINGS: No consolidation. No pleural effusion. No pneumothorax. No cardiomegaly. No acute fracture. Cervical fusion hardware in place. IMPRESSION: No acute findings. This document has been electronically signed by: Skyler Castellano MD on 12/23/2024 21:21:43
[2024-12-23 20:23] VITALS: BP 171/81; PULSE 80; RESP 19; TEMP 36.6; O2SAT 98; BMI 33.8
--- NOTE | 2024-12-23 20:24 | ED.GENADULT ---
HPI - General Adult General Chief complaint: General Medical Stated complaint: BP dropped / weak Time Seen by Provider: 12/23/24 20:54 Source: patient Mode of arrival: ambulatory Limitations: no limitations History of Present Illness ED Provider: Dr. Renetta Gomez HPI narrative: Patient comes to the emergency room complaining of generalized malaise, not feeling well, 1 episode of chest pressure, blood pressure in the high 80s, weakness, generalized malaise. According to the patient, she has been having chest pressure, chest pain, shortness of breath with exertion. Patient states that on December 12, she had a cardiac stress test done here. Patient was informed that it was abnormal as patient developed chest pain, shortness of breath and also ST segment depressions on her EKG. Patient was told that she needs to get a nuclear stress it. However, yesterday patient had for the 1st time symptoms while sitting. They lasted for a few minutes and self-resolved. Patient states that she was concerned about her blood pressure being in the high 80s, states that she took her blood pressure several times and it was low. At this time, patient has no chest pain or shortness of breath. Related Data Home Medications ?Medication ?Instructions ?Recorded ?Confirmed amlodipine 10 mg tablet 10 mg PO DAILY 12/03/24 12/24/24 blood sugar diagnostic (Blood 12/03/24 12/18/24 Glucose Test strips) blood sugar diagnostic (OneTouch 12/03/24 12/18/24 Verio test strips) buspirone 5 mg tablet 5 mg PO ONCE 12/03/24 12/24/24 clobetasol 0.05 % topical ointment 1 appl topical BID 12/03/24 12/18/24 clonidine HCl 0.1 mg tablet 0.05 mg PO DAILY 12/03/24 12/24/24 lancets 33 gauge (OneTouch Delica 12/03/24 12/18/24 Plus Lancet) loratadine 10 mg capsule (Allergy 10 mg PO DAILY 12/03/24 12/24/24 Relief (loratadine)) losartan 100 mg tablet 100 mg PO DAILY 12/03/24 12/24/24 metformin 1,000 mg tablet 1,000 mg PO BID 12/03/24 12/24/24 methocarbamol 750 mg tablet 750 mg PO NEEDED 12/03/24 12/24/24 naproxen 500 mg tablet 500 mg PO BID 12/03/24 12/24/24 pantoprazole 40 mg tablet,delayed 40 mg PO USEASDIRECTD 12/03/24 12/24/24 release ferrous sulfate 325 mg (65 mg 325 mg PO DAILY 12/18/24 12/24/24 iron) tablet Previous Rx's ?Medication ?Instructions ?Recorded doxycycline hyclate 100 mg capsule 100 mg PO BID 7 days #14 caps 12/18/24 empagliflozin 10 mg tablet 10 mg PO DAILY #90 tabs 12/18/24 (Jardiance) mecobalamin (vitamin B12) 1,000 2,000 mcg (2 x 1,000 mcg) PO DAILY 12/18/24 mcg chewable tablet (B12 Active) #180 tabs Allergies Allergy/AdvReac Type Severity Reaction Status Date / Time Penicillins Allergy Severe Unknown Verified 12/23/24 20:27 Sulfa (Sulfonamide Allergy Severe Unknown Verified 12/23/24 20:27 Antibiotics) adhesive Allergy Intermediate red patches Verified 12/23/24 20:27 lisinopril hctz Allergy Severe Anaphylaxis Uncoded 12/23/24 20:27 gentamycin Allergy Mild Itchy Eyes Uncoded 12/23/24 20:27 Review of Systems Review of Systems: Constitutional : No Weight loss, No Fever, No Chills, No Night Sweats, No Fatigue, No Malaise ENT/Mouth : No Hearing loss, No Ear Pain, No Nasal Congestion, No Sinus Pain, No Hoarseness, No sore throat, No Rhinorrhea, No Swallowing Difficulty Eyes: No Eye Pain, No Swelling, No Redness, No Foreign Body, No Discharge, No Vision Changes Cardiovascular : Complaining of chest pressure with exertion, shortness of breath with exertion. One episode of hypotension, generalized malaise at rest, self-resolved. No symptoms at this time Respiratory : No Cough, No Sputum, No Wheezing, No Smoke Exposure, No Dyspnea Gastrointestinal : No Nausea, No Vomiting, No Diarrhea, No Constipation, No abdominal Pain, No Hematochezia, No Melena Genitourinary : no irregular bleeding, No Dysuria, No Urinary Frequency, No Hematuria, No Urinary Incontinence, No Urgency, No Flank Pain, No Urinary Flow Changes, No Hesitancy Musculoskeletal : No joint pain, No Myalgias, No Joint Swelling Skin : No Skin Lesions, No rash Neuro : No Weakness, No Numbness, No Paresthesias, No Loss of Consciousness, No Dizziness, No Headache Psych : No Anxiety/Panic, No Depression, No SI/HI/AH/VH, No Social Issues, Heme/Lymph: No Bruising, No Bleeding,No Lymphadenopathy Endocrine : No Polyuria, No Polydipsia, No Temperature Intolerance [facility] Past Medical History Medical History Exhaustion Memory change Anxiety Hypertension Diabetes Abnormal colonoscopy Surgical History (Updated 12/03/24 @ 17:08 by Ngoc Ordonez, [facility]) H/O eye surgery H/O cervical spine surgery History of back surgery H/O elbow surgery H/O wrist surgery H/O section Family History Family History (Updated 12/03/24 @ 08:36 by Cirilo Krueger MA) Sister Mental health disorder Substance abuse Cardiovascular disease Hypertension Thyroid disease Advancing dementia Brother Cancer Cardiovascular disease Hypertension Paternal Grandfather Cancer Father Cardiovascular disease Hypertension Mother Hypertension Daughter Thyroid disease Social History Social History (Updated 12/03/24 @ 08:31 by Cirilo Krueger MA) Household Members: Spouse Housing: House Are you a primary animal care attendant to a significant other at home: No Do you presently have visiting nurse or other home services: No Alcohol intake: former Patient Tobacco Use Status: Never used Tobacco Smoked in Last 30 Days: No e-Cigarette/Vaping Use: Never Used Second Hand Smoke Exposure: No Use of substances other than those prescribed or required for medical reasons: No Advance Directives: No Advance Directives Information Provided: No Do you have a plan to hurt others: No Plan service: No Current occupational status: retired Cognitive needs: No Hearing needs: No Vision needs: No Physical Exam ED Vital Signs: Vital Signs - 24 hr 12/23/24 20:23 12/23/24 21:18 12/23/24 21:19 Temperature 98 F Pulse Rate 80 75 79 Respiratory Rate 19 Blood Pressure 171/81 H 135/67 142/74 H Pulse Oximetry 98 Oxygen Delivery Method Room Air 12/23/24 21:20 12/23/24 22:44 12/23/24 22:44 Temperature 97.6 F Pulse Rate 73 77 81 Respiratory Rate 18 Blood Pressure 141/76 H 123/71 138/79 Pulse Oximetry 95 Oxygen Delivery Method Room Air 12/23/24 22:45 12/23/24 22:45 12/24/24 04:21 Temperature 97.7 F Pulse Rate 81 81 88 Respiratory Rate 16 Blood Pressure 138/71 131/79 124/73 Pulse Oximetry 95 Oxygen Delivery Method Room Air 12/24/24 06:57 12/24/24 08:00 12/24/24 11:01 Temperature Pulse Rate 66 73 Respiratory Rate 16 18 16 Blood Pressure 153/72 H 130/75 123/72 Pulse Oximetry 96 95 95 Oxygen Delivery Method Room Air Room Air BMI result Body Mass Index 33.0 Const Other: Appearance: Alert. Oriented X3. No acute distress. Eyes: Pupils equal, round and reactive to light. ENT: Pharynx normal. Neck: Normal inspection. Neck supple. No lymph nodes noted. No crepitus CVS: Normal heart rate and rhythm. Pulses normal. Normal S1 and S2 Respiratory: No respiratory distress. Breath sounds normal. No Wheezing. No rales Abdomen: Soft and nontender. No rigidity. No distention. Skin: Skin warm and dry. Normal skin color. Normal skin turgor. Extremities: No lower extremity edema. No Lacerations. No Rash Neuro: Oriented X 3. No motor deficit. No sensory deficit. Moving all extremities. No slurred speech. CN 2 through 12 grossly intact Psych: calm, cooperative, normal affect Course Course Course Narrative: This is an RME: Additional HPI, ROS, PE not included below will be deferred to primary provider. RME assessment and note performed by: Alyssa Nevarez PA-C This is a [id number], with a hx of diabetes type 2 with complication, hypertension, hyperlipidemia, fatty liver, obesity, chronic back pain, seasonal allergies, GERD, b12 def , who presents to the ER with a complaint of acute onset nausea, shortness of breath and left sided back pain/shoulder pain x 1 hour. Reports that she was walking down stairs and suddenly felt diffusely weak. She reports that she took her blood pressure and it was low, 80s over 40s. Reports that she recently failed a cardiac stress test Plan: Labs, EKG, viral swabs, chest x-ray, further ER evaluation needed. Medications Administered Generic Name Dose Route Start Last Admin Trade Name Freq PRN Reason Stop Dose Admin Heparin Sodium/Sodium Chloride 25,000 unit in 250 mls @ 0 mls/hr 12/24/24 06:45 12/24/24 06:45 Heparin Sodium,Porcine/1/2ns IVCONT 12 units/kg/hr .Q0M PETTY 9.19 mls/hr Administration Protocol Per Protocol Discontinued Medications Generic Name Dose Route Start Last Admin Trade Name Kristian PRN Reason Stop Dose Admin Aspirin 325 mg 12/24/24 05:20 12/24/24 05:49 Aspirin Enteric Coated 325 Mg Tablet.Dr LISA 12/24/24 05:21 325 mg ONCE ONE Administration Medical Decision Making Medical Decision Making [facility] Narrative: My interpretation of EKG, normal sinus rhythm, heart rate 79, no ST segment depression or elevation, no T-wave inversion, QTC 535 My interpretation of labs: Normal hematology, no significant abnormality in patient's chemistry, AST ALT and alk phos slightly bumped. Troponin x2 negative. Patient is asymptomatic, normal vitals. However, it is concerning that patient has stable angina and 1 episode of unstable angina. I discussed the patient with Dr. Sanders, transferring the patient would be the best for the patient. I called [facility] transfer line. At this time, they have no beds at all. At this time, patient is asymptomatic, normal EKG, troponin x2 negative. They recommendations is to call back in the morning after a.m. after the have some discharges, they may have discharges and then have beds available. I discussed the patient with our hospitalist Dr. Gray to admit the patient. It is likely that the patient may have a bed in the morning at [facility], but also, there is no guarantee that there will be a bed available. Since the patient is asymptomatic at this time, normal troponins and EKG, it is unlikely that they will give preference to this patient for an immediate transfer. Therefore, it would be best to keep the patient under the hospitalist service rather than in the emergency room without clear disposition. Dr. Gray recommends to keep the patient in the emergency room and get a Cardiology consult to have Dr. Sanders see the patient in the emergency room. We will monitor the patient in the emergency room. We will call back again this morning to check on bed disposition. Considered are no beds available, we may have to transfer the patient to [facility]. Patient is agreeable to go to [facility] if needed. However, patient is scared that her insurance will not cover it and she will have a huge [id number] bill to pay. I gave sign out ot my colleage Dr. Valente We decided to start the patient on heparin since she had her 1st episode of unstable angina yesterday. At this time, patient remains asymptomatic Blood pressure 124/73, heart rate 88, respirations 16 12/24/2024 Dr. Darian Valente's Notes: 08:43 I assumed care of this patient from my colleague, Dr. Renetta Lewis's at 05:[address] Lewis's did contact [facility] and they advised that we called him back at 08:00 hours determine if they had capacity to take the patient. 69-year-old female with a history of hypertension, diabetes mellitus, hyperlipidemia, fatty liver, obesity, GERD, exertional chest pain since May 2024 who presented to the emergency department for evaluation of chest pressure at rest with low blood pressure at home but elevated blood pressures here in the emergency department (171/81). She states that since being in the emergency department she was had episodes of chest pressure which have resolved and he was currently pain-free. Patient told me that she gets 2-3 episodes of chest pressure per week, mainly with exertion. Patient states that she was having elevated blood pressures and her PCP increased her amlodipine with some improvement of her hypertension, she has been able to walk around the mall but still gets chest pressure with exertion but he was not had any chest pain at rest. Prior to coming to the emergency department the patient developed chest pain at rest, took her blood pressure and it was 80 which concerned her therefore she came to the emergency department for evaluation. The patient did have a positive stress test on 12/12/2024, please see the report below. Patient recently moved from [place] and she states that she had a ?normal stress tests? 1 year prior in [place]. Laboratory evaluation revealed elevated LFTs consistent with her fatty liver. Two troponins were below detectable limits. EKG unremarkable. COVID-19, influenza and RSV were negative. I did discuss the patient's presentation with our covering cytology manager, Dr. Sanders. Given the positive stress test and the patient's chest pain at rest with possible hypotension he recommended that the patient be transferred to a tertiary facility that can evaluated the patient for consideration for non urgent cardiac catheterization. Patient was given aspirin 325 mg orally, given a heparin bolus and started on a heparin drip. I did discuss transfer with the [facility] and [facility] in both facilities are at capacity can not take this patient at this time. Acquisition Time: 2024-12-12 08:00:01 Total Exercise Time: 00:05:00 Test Indications: Dyspnea CP Medications: SEE H&P Protocol: STERLING Max HR: 136 BPM 90% of Pred: 151 BPM Max BP: 174/68 mmHG Max Work Load: 7.0 METS Exercise Stress Test with exercise 5 mins of Sterling Protocol, achieving 90% MPHR, with reports of severe SOB and 4/10 chest pressure that resolved slowly with recovery, with isolated PVC, with normotensive response to exercise. With ST depression in the inferior and anterolateral leads with exercise, baseline sagging ST. Recommend further testing with nuclear imaging. Test reviewed with Dr. Carvalho. Referred By: Ngoc Ordonez Electronically Signed By: Duane Cruz 10:28 I did contact the [facility] transfer line and spoke to Dr. Willingham at [facility] in [facility] . He did accept the patient as an ED to Hospital transfer. He will be transferred by ALS ambulance with the heparin drip running. Differential Diagnosis Differential Diagnoses: The differential diagnosis associated with the presentation includes (Stable angina, unstable angina, ACS) Admission/Observation Consideration of admission/observation: Escalation of care including admission/observation considered Consult Healthcare Provider Management of the patient was discussed with: Hospitalist and Remodeler Lab Data MDM Lab Attestation statement: I reviewed the patient's lab results. 12/24/24 10:19 12/23/24 20:53 Labs: Lab Results 12/23/24 12/23/24 12/24/24 Range/Units 20:53 23:16 06:13 WBC 9.0 (4.8-10.8) X10*3/uL RBC 4.50 (4.20-5.50) X10*6/uL Hgb 14.3 (12.0-16.0) g/dl Hct 41.5 (37.0-47.0) % MCV 92.2 (80.0-98.0) fL MCH 31.8 (27.0-33.0) pg MCHC 34.5 (31.0-35.0) g/dl RDW 12.1 (11.0-16.0) % Plt Count 232 (160-400) X10*3/uL MPV 8.8 L (9.4-12.3) fL Immature Gran % (Auto) 0.2 (0.0-0.4) % Neut % (Auto) 61.7 (45-73) % Lymph % (Auto) 24.0 (20-40) % [place] % (Auto) 9.5 (2-11) % Eos % (Auto) 3.5 (0-4) % Baso % (Auto) 1.1 (0-2) % Lymph # (Auto) 2.2 (1.2-4.9) X10*3/uL [place] # (Auto) 0.9 (0.1-1.2) X10*3/uL Eos # (Auto) 0.3 (0.0-0.4) X10*3/uL Baso # (Auto) 0.1 (0.0-0.2) X10*3/uL Abs Immat Gran (auto) 0.02 (0.00-0.03) X10*3/uL Absolute Neuts (auto) 5.5 (2.0-8.3) x10*3/uL Absolute Nucleated RBC 0.000 (0.0-0.012) X10*3/uL Nucleated RBC % (auto) 0.0 (0.0-0.2) /100WBC PT 11.2 (10.9-12.4) SEC INR 1.0 (0.9-1.1) APTT 29.8 (26.0-36.8) SEC aPTT Heparin Protocol (53-77.9) SEC Sodium 135 (135-145) mmol/L Potassium 4.3 (3.3-5.1) mmol/L Chloride 101 (96-108) mmol/L Carbon Dioxide 21 L (22-29) mmol/L Anion Gap 17 (12-20) BUN 15 (9-16) mg/dL Creatinine 0.85 (0.5-1.4) mg/dL Estim Creat Clear Calc 57.8 Estimated GFR > 60 POC Glucose (60-115) mg/dL Random Glucose 177 H (60-115) mg/dL Calcium 10.1 (8.4-10.2) mg/dL Magnesium 2.0 (1.6-2.6) mg/dL Total Bilirubin 0.4 (0.0-1.0) mg/dL Direct Bilirubin 0.2 (0.0-0.5) mg/dL AST 75 H (5-31) U/L ALT 103 H (0-31) U/L Alkaline Phosphatase 171 H (39-117) U/L Troponin I High Sens < 2.7 < 2.7 (<3.5-17.0) ng/L Total Protein 7.9 (6.5-8.0) g/dL Albumin 4.5 (3.5-5.0) g/dL Lipase 49 (8-78) U/L Urine Color Urine Appearance Urine pH (5.0-9.0) Ur Specific [place] (1.005-1.025) Urine Protein (Neg-Trace) mg/dL Urine Glucose (UA) (Negative) mg/dL Urine Ketones (Negative) mg/dL Urine Blood (Negative) Urine Nitrite (Negative) Ur Leukocyte Esterase (Negative) Influenza Type A (PCR) NEGATIVE (Negative) Influenza Type B (PCR) NEGATIVE (Negative) RSV RNA Qual (PCR) NEGATIVE (Negative) SARS-CoV-2 RNA (RT-PCR) NEGATIVE (Negative) 12/24/24 12/24/24 12/24/24 Range/Units 06:21 08:53 10:19 WBC 5.5 (4.8-10.8) X10*3/uL RBC 4.54 (4.20-5.50) X10*6/uL Hgb 14.4 (12.0-16.0) g/dl Hct 42.4 (37.0-47.0) % MCV 93.4 (80.0-98.0) fL MCH 31.7 (27.0-33.0) pg MCHC 34.0 (31.0-35.0) g/dl RDW 12.0 (11.0-16.0) % Plt Count 227 (160-400) X10*3/uL MPV 8.9 L (9.4-12.3) fL Immature Gran % (Auto) (0.0-0.4) % Neut % (Auto) (45-73) % Lymph % (Auto) (20-40) % [place] % (Auto) (2-11) % Eos % (Auto) (0-4) % Baso % (Auto) (0-2) % Lymph # (Auto) (1.2-4.9) X10*3/uL [place] # (Auto) (0.1-1.2) X10*3/uL Eos # (Auto) (0.0-0.4) X10*3/uL Baso # (Auto) (0.0-0.2) X10*3/uL Abs Immat Gran (auto) (0.00-0.03) X10*3/uL Absolute Neuts (auto) (2.0-8.3) x10*3/uL Absolute Nucleated RBC 0.000 (0.0-0.012) X10*3/uL Nucleated RBC % (auto) 0.0 (0.0-0.2) /100WBC PT 11.8 (10.9-12.4) SEC INR 1.0 (0.9-1.1) APTT (26.0-36.8) SEC aPTT Heparin Protocol 31.1 L (53-77.9) SEC Sodium (135-145) mmol/L Potassium (3.3-5.1) mmol/L Chloride (96-108) mmol/L Carbon Dioxide (22-29) mmol/L Anion Gap (12-20) BUN (9-16) mg/dL Creatinine (0.5-1.4) mg/dL Estim Creat Clear Calc Estimated GFR POC Glucose 123 H (60-115) mg/dL Random Glucose (60-115) mg/dL Calcium (8.4-10.2) mg/dL Magnesium (1.6-2.6) mg/dL Total Bilirubin (0.0-1.0) mg/dL Direct Bilirubin (0.0-0.5) mg/dL AST (5-31) U/L ALT (0-31) U/L Alkaline Phosphatase (39-117) U/L Troponin I High Sens (<3.5-17.0) ng/L Total Protein (6.5-8.0) g/dL Albumin (3.5-5.0) g/dL Lipase (8-78) U/L Urine Color Yellow Urine Appearance Clear Urine pH 6.5 (5.0-9.0) Ur Specific [place] <= 1.005 (1.005-1.025) Urine Protein Negative (Neg-Trace) mg/dL Urine Glucose (UA) Negative (Negative) mg/dL Urine Ketones Negative (Negative) mg/dL Urine Blood Negative (Negative) Urine Nitrite Negative (Negative) Ur Leukocyte Esterase Negative (Negative) Influenza Type A (PCR) (Negative) Influenza Type B (PCR) (Negative) RSV RNA Qual (PCR) (Negative) SARS-CoV-2 RNA (RT-PCR) (Negative) Independent Interpretation I performed an independent interpretation of an: Plain X-Ray Critical Care Time Critical Care Time Critical Care Time: Yes Total Critical Care Time: 90 Attestation: I have personally provided critical care time. Time includes review of lab data, radiology results, discussion with consultants, and monitoring for potential decompensation. Intervention performed as documented. Discharge Plan Discharge Clinical Impression: Unstable angina Patient Disposition: [facility] Transfer Details: [facility], [facility], accepting attending, Dr. Willingham Prescriptions: No Action Jardiance 10 mg tablet 10 mg PO DAILY Qty: 90 0RF amlodipine 10 mg tablet 10 mg PO DAILY buspirone 5 mg tablet 5 mg PO ONCE clobetasol 0.05 % ointment 1 appl topical BID clonidine HCl 0.1 mg tablet 0.05 mg PO DAILY Allergy Relief (loratadine) 10 mg capsule 10 mg PO DAILY losartan 100 mg tablet 100 mg PO DAILY metformin 1,000 mg tablet 1,000 mg PO BID methocarbamol 750 mg tablet 750 mg PO NEEDED Rx Instructions: every 8 hours as needed naproxen 500 mg tablet 500 mg PO BID pantoprazole 40 mg tablet,delayed release (DR/EC) 40 mg PO USEASDIRECTD Rx Instructions: once a day as needed (DME) lancets [OneTouch Delica Plus Lancet] 33 gauge misc See Rx Instructions .Route Rx Instructions: As directed (DME) OneTouch Verio test strips Strip See Rx Instructions .Route Rx Instructions: As directed (DME) Blood Glucose Test Strip See Rx Instructions .Route Rx Instructions: As directed ferrous sulfate 325 mg (65 mg iron) tablet 325 mg PO DAILY mecobalamin (vitamin B12) [B12 Active] 1,000 mcg tablet,chewable 2,000 mcg PO DAILY Qty: 180 3RF Rx Instructions: ok to dispense what is available doxycycline hyclate 100 mg capsule 100 mg PO BID 7 Days Qty: 14 0RF Rx Instructions: x 2 days Print Language: Croatian
--- NOTE | 2024-12-23 20:26 | ECG_ITS ---
Test Reason : CHEST AND BACK PAIN Blood Pressure : */* mmHG Vent. Rate : 79 BPM Atrial Rate : 79 BPM P-R Int : 180 ms QRS Dur : 92 ms QT Int : 380 ms P-R-T Axes : 37 4 44 degrees QTcB Int : 435 ms Normal sinus rhythm Normal ECG No previous ECGs available Referred By: Alyssa Nevarez Electronically Signed By: YVETTE SALCEDO
[2024-12-23 20:58] LABS: MANUAL DIFF FLAG NO
[2024-12-23 20:59] LABS: Basophils Absolute Auto 0.1 X10*3/uL (0.0-0.2); Basophils Percent Auto 1.1 % (0-2); Eosinophils Absolute Auto 0.3 X10*3/uL (0.0-0.4); Eosinophils Percent Auto 3.5 % (0-4); Hematocrit 41.5 % (37.0-47.0); Hemoglobin 14.3 g/dl (12.0-16.0); Imm Gran Abs Auto 0.02 X10*3/uL (0.00-0.03); Imm Gran Pct Auto 0.2 % (0.0-0.4); Lymphocytes Absolute Auto 2.2 X10*3/uL (1.2-4.9); Mean Corpuscular HGB Conc 34.5 g/dl (31.0-35.0); Mean Corpuscular Hemoglobin 31.8 pg (27.0-33.0); Mean Corpuscular Volume 92.2 fL (80.0-98.0); Mean Platelet Volume 8.8 fL (9.4-12.3); Monocytes Absolute Auto 0.9 X10*3/uL (0.1-1.2); Monocytes Percent Auto 9.5 % (2-11); Neutrophils Absolute Auto 5.5 x10*3/uL (2.0-8.3); Neutrophils Percent Auto 61.7 % (45-73); Platelet Count 232 X10*3/uL (160-400); Red Cell Distribution Width 12.1 % (11.0-16.0)
[2024-12-23 21:18] VITALS: BP 135/67; PULSE 75
[2024-12-23 21:18] LABS: Alanine Aminotransferase 103 U/L (0-31); Albumin Level 4.5 g/dL (3.5-5.0); Alkaline Phosphatase 171 U/L (39-117); Anion Gap 17 (12-20); Aspartate Amino Transferase 75 U/L (5-31); Bilirubin Direct 0.2 mg/dL (0.0-0.5); Bilirubin Total 0.4 mg/dL (0.0-1.0); Blood Urea Nitrogen 15 mg/dL (9-16); Calcium 10.1 mg/dL (8.4-10.2); Carbon Dioxide 21 mmol/L (22-29); Chloride 101 mmol/L (96-108); Creatinine Clr Calc Pharmacy 57.8; Estimated Glomerular Filt Rate > 60; Glucose Random 177 mg/dL (60-115); Lipase 49 U/L (8-78); Potassium 4.3 mmol/L (3.3-5.1); Sodium 135 mmol/L (135-145); Total Protein 7.9 g/dL (6.5-8.0)
[2024-12-23 21:19] VITALS: BP 142/74; PULSE 79
[2024-12-23 21:20] VITALS: BP 141/76; PULSE 73
[2024-12-23 21:27] LABS: Troponin-I High Sensitivity < 2.7 ng/L (<3.5-17.0)
[2024-12-23 21:40] LABS: Influenza A PCR NEGATIVE (Negative); Influenza B PCR NEGATIVE (Negative); Resp Syncy Virus RNA Qual PCR NEGATIVE (Negative); SARS COV2 PCR INHOUSE NEGATIVE (Negative)
[2024-12-23 22:44] VITALS: BP 123/71; BP 138/79; PULSE 77; PULSE 81; RESP 18; TEMP 36.4; O2SAT 95
[2024-12-23 22:45] VITALS: BP 131/79; BP 138/71; PULSE 81
[2024-12-23 23:50] LABS: Troponin-I High Sensitivity < 2.7 ng/L (<3.5-17.0)
[2024-12-24 04:21] VITALS: BP 124/73; PULSE 88; RESP 16; TEMP 36.5; O2SAT 95
[2024-12-24] MEDS: Aspirin Enteric Coated 325 MG TABLET.DR PO (05:49)
[2024-12-24 06:20] VITALS: BMI 33.0
[2024-12-24 06:27] LABS: Appearance Urine Clear; Color Urine Yellow; Glucose Urine UA Negative (Negative); Leukocyte Esterase Urine Negative (Negative); Nitrite Urine Negative (Negative); PH 6.5 (5.0-9.0); Specific Gravity - Urine <= 1.005 (1.005-1.025); Urine Blood Negative (Negative); Urine Ketones Negative (Negative); Urine Protein Negative (Neg-Trace)
[2024-12-24 06:29] LABS: Prothrombin Time 11.2 SEC (10.9-12.4)
[2024-12-24 06:32] LABS: Partial Thromboplastin Time 29.8 SEC (26.0-36.8)
[2024-12-24] MEDS: Heparin Sodium,Porcine/1/2NS 25,000 UNIT/250 ML IV.SOLN 9.19 UNIT IVCONT (06:45)
[2024-12-24 06:57] VITALS: BP 153/72; PULSE 66; RESP 16; O2SAT 96
[2024-12-24 08:00] VITALS: BP 130/75; RESP 18; O2SAT 95
[2024-12-24 08:56] LABS: Glucose, Whole Blood 123 mg/dL (60-115)
[2024-12-24 10:24] LABS: Hematocrit 42.4 % (37.0-47.0); Hemoglobin 14.4 g/dl (12.0-16.0); Mean Corpuscular Hemoglobin 31.7 pg (27.0-33.0); Mean Corpuscular Volume 93.4 fL (80.0-98.0); Mean Platelet Volume 8.9 fL (9.4-12.3); Platelet Count 227 X10*3/uL (160-400); Red Blood Count 4.54 X10*6/uL (4.20-5.50); White Blood Count 5.5 X10*3/uL (4.8-10.8)
[2024-12-24 10:29] LABS: Prothrombin Time 11.8 SEC (10.9-12.4)
[2024-12-24 10:32] LABS: PTT Heparin Drip 31.1 SEC (53-77.9)
[2024-12-24 11:01] VITALS: BP 123/72; PULSE 73; RESP 16; O2SAT 95
[2024-12-24 11:39] VITALS: BP 123/72; PULSE 73; RESP 16; TEMP 36.6; O2SAT 95
== END 2024-12-24 11:20 | disposition short-term general hospital (02) ==
PROVIDERS: Emergency Medicine; Physician Assistant Medical; Emergency Provider Emergency Medicine Emergency Medical Services
DX: I20.0 Unstable angina (principal); R07.89 Other chest pain; R53.1 Weakness; I10 Essential (primary) hypertension; R11.2 Nausea with vomiting, unspecified; R06.02 Shortness of breath; M54.50 Low back pain, unspecified; Z79.899 Other long term (current) drug therapy; Z03.818 Encounter for observation for suspected exposure to other biological agents ruled out
CPT/HCPCS: 0241U; 36415; 71046; 80048; 80076; 81003; 82947; 83690; 83735; 84484; 85025; 85027; 85610; 85730; 93005; 96374; 99285; J1644

== ENCOUNTER → 2024-12-23 20:26 | Outpatient (BNV) | payer BC, SELFPAY | PROVIDERS: Emergency Provider Emergency Medicine Emergency Medical Services; Visit Provider Internal Medicine | DX: R07.9 Chest pain, unspecified (principal); M54.9 Dorsalgia, unspecified | CPT/HCPCS: 93010 ==

== ENCOUNTER → 2024-12-23 20:26 | Outpatient (BNV) | payer BC, SELFPAY | PROVIDERS: Emergency Provider Emergency Medicine; Visit Provider Radiology Diagnostic Radiology | DX: R07.9 Chest pain, unspecified (principal) | CPT/HCPCS: 71046 ==

== ENCOUNTER 2025-01-08 11:30 | Outpatient (AMB) | payer BC, SELFPAY ==
--- NOTE | 2025-01-08 11:31 | A.OFFPC_ITS ---
Vital Signs 01/08/25 11:40 Height 5 ft Weight 177 lb BMI 34.6 BP 124/72 Blood Pressure Location Lt brachial Position Sitting Respiration 12 Pulse 68 Pulse Source Pulse Oximeter Temp 97.1 F Temp Source Oral Pulse Oximetry (%) 96 Oxygen Delivery Method Room Air Intake Visit Reasons: Cardiac Stent Placed Intake Note: follow up on cardiac stent placed Finishing Machine Operator Required: No Allergies Penicillins Allergy (Severe, Verified 01/08/25 11:45) Unknown Sulfa (Sulfonamide Antibiotics) Allergy (Severe, Verified 01/08/25 11:45) Unknown adhesive Allergy (Intermediate, Verified 01/08/25 11:45) red patches lisinopril hctz Allergy (Severe, Uncoded 01/08/25 11:45) Anaphylaxis gentamycin Allergy (Mild, Uncoded 01/08/25 11:45) Itchy Eyes Medication List - Last Reconciled 01/08/25 by Ngoc Ordonez, RICE FARMWORKER- amlodipine 10 mg PO DAILY atorvastatin 20 mg PO DAILY blood sugar diagnostic (OneTouch Verio test strips) POC testing TID blood sugar diagnostic (Blood Glucose Test strips) As directed buspirone 5 mg PO ONCE clobetasol 0.05% 1 appl topical BID clopidogrel (Plavix) 75 mg PO DAILY empagliflozin (Jardiance) 10 mg PO DAILY ferrous sulfate 325 mg PO DAILY lancets ([email or web address] Delica Plus Lancet) POC testing TID loratadine (Allergy Relief (loratadine)) 10 mg PO DAILY losartan 100 mg PO DAILY mecobalamin (vitamin B12) (B12 Active) 2,000 mcg (2 x 1,000 mcg) PO DAILY metformin 1,000 mg PO BID methocarbamol 750 mg PO NEEDED metoprolol succinate ER 25 mg PO DAILY naproxen 500 mg PO BID pantoprazole 40 mg PO USEASDIRECTD polyethylene glycol 3350 (Miralax) 17 grams PO DAILY Tobacco use date assessed: 01/08/25 Fall risk assessment: 2 + Falls in past year Last assessed Fall Risk: 01/08/25 Dental Screening Dental Screen Date: 01/08/25 Did you have a dental visit in the last 12 months?: Yes Did you have a dental problem in the last 6 months where you did not have access to dental care?: No Was dental information given to patient?: Patient has dentist HPI HPI Comments History of Present Illness Details 69-year-old female with diabetes type 2 with complication, hypertension, hyperlipidemia, fatty liver, obesity, chronic back pain, seasonal allergies, GERD, b12 def , CAD s/p KELLEN 12/2024, constipation Status post multiple orthopedic surgeries to include spinal surgery, status post left heart cath with successful stenting of severe unstable 1st diagonal disease with KELLEN 12/2024 [facility] Maintenance: UTD on Flu Tdap 2020 Colon due for repeat Mammo ordered DEXA ordered Pap referred to [facility]o appt 12/25/24 Neuro Here today for a Transitional Care Management Visit Discharge summary reviewed. Presented to [facility] with unstable angina transferred to [place] status post left heart cath with successful stenting of severe unstable 1st diagonal disease with KELLEN. Recommend continuing uninterrupted aspirin Plavix and statin. Started on metoprolol succinate 25 mg daily. Her losartan and Norvasc were continued. Clonidine was placed on hold. She was discharged home and returned for an emergency room visit on December 31 for chief complaints of constipation. From this workup her sodium was 132 glucose of 188 calcium of 10.8 alk-phos 290 lipase 123 AST 77 ALT 89 chest x-ray no pulmonary disease. A CT scan did show constipation. She was disimpacted manually and also given a fleets enema. She was discharged home with MiraLax and a high-fiber diet. Admission Date: 12/24/2024 Discharge Date: 12/25/2024 Hospital: [facility] Date of interactive contact with Nurse Navigator: as documented in chart Pending diagnostic tests/treatments: Pending consults: DME: PT/OT/BLUEPRINT BLOCKER: Home Health Aide/PATTERNMAKER APPRENTICE WOOD: Community Resources: Asst Living: Home Health: Hospice: Support group: Other: Referrals: Cardiac rehab will start at [facility] yesterday had appt; Medications reconciled & updated. During todays TCM visit, the d/c summary was reviewed, along with the need for or follow-up on pending diagnostic tests and treatments, as necessary interaction with other health child care specialist who will assume or reassume care of the beneficiary?s system-specific problems was done or is being worked on, education was provided to the beneficiary, family, guardian, and/or caregiver, referrals to establish or re-establish and arrange needed community resources we completed, assistance in scheduling required follow-up with community providers and services & finally updated medication list given to patient/caregiver - The patient is a 69-year-old female pr esenting for follow-up of coronary artery disease post-procedure management. Left heart catheterization was performed, showing significant blockage in the first diagonal artery. The blockage was treated with a drug-eluting stent, and the patient has been advised to continue with aspirin, Plavix, and atorvastatin indefinitely. - Constipation has been an issue leading to an ER visit, which is now managed with MiraLAX twice daily. Essential hypertension is being treated with losartan and amlodipine following discontinuation of clonidine. The patient also is managing hyperlipidemia and is on atorvastatin. The patient was recommended for a blood test to investigate a potential hereditary cardiovascular risk marker but has faced delays in completing the test. - Concerns were raised over hereditary c ardiovascular risk due to her father's medical history. Type 2 Diabetes Mellitus treatment adherence issues due to medication costs were also noted during the visit. On Metformin. SGLT RX'd cost > 200$/90 days Requested referral to a closer cardiac rehab facility at [facility]. - Maintains a moderate physical activity level through walking. - Presence of fall episodes due to envir onmental issues, not a sign of weakness. Bruising of R leg. No head strike. - Experiences financial strain affecting medication adherence due to high copays. CHANTALE reviewed and completed today, full code. Review of Systems - Cardiovascular: Reports no more than u sual chest discomfort, denying excruciating pain. - Gastrointestinal: Reports constipation , managed with MiraLAX. Reports passing gas normally. Exam Awake alert oriented Regular rate and rhythm Lung sounds clear to auscultation bilat Abd soft, nontender, normoactive BS x 4 No edema to bilateral lower extremities. Positive varicose veins. Bruising to RLE Mood and affect appropriate. Discussion Notes I discussed the current state of the patient's coronary artery disease management. We reviewed her medication regimen, emphasizing the need to continue aspirin, Plavix, and atorvastatin indefinitely. I addressed her concern regarding constipation by advising the continued use of MiraLAX, which has been effective. The patient also mentioned issues with medication costs, and we discussed alternatives to better manage her diabetes. A referral was placed for cardiac rehab closer to her residence to enhance compliance. We talked about the necessity of maintaining vigilance concerning fall hazards, given her medication's effects, particularly aspirin and clopidogrel, on bruising risks. I recommended nitroglycerin for emergency chest pain management and explained its use in detail, highlighting its role while reinforcing the need for emergency evaluation if symptoms persist. Assessment and Plan 1. Coronary Artery Disease: Continuous a nticoagulation with aspirin and Plavix is necessary, alongside atorvastatin therapy. Cardiac rehab will be facilitated at a nearby location to encourage participation. Message sent to [facility] [employer], ? sooner appt thatn 03/04/25. New Rx for Nitro SL prn use. Edu provided. 2. Constipation: The presence of improve d symptoms with MiraLAX use supports the continuation of this management strategy. 3. Essential Hypertension: Losartan and amlodipine remain as first-line agents post-discontinuation of clonidine without adverse effects. Continue monitoring blood pressure. BP at goal. 4. Hyperlipidemia: Persistent statin the rapy with atorvastatin is necessary. Await results from scheduled lipid profile and genetic testing to assess cardiovascular risk. 5. Anemia: Resume iron supplementation w ith plans for periodic evaluation of hemoglobin levels. She stopped d/t constipation. 6. Type 2 Diabetes Mellitus: She can aff ord the copay for invokana, start 100mg. Cardiac/Renal and DM benefit. Cont metformin 7. Hereditary Risk for Cardiovascular Di sease: Confirmed risk evidenced by father's historical data necessitates ongoing cardiovascular monitoring and pending genetic marker evaluation. This is being done by Cards 8. Repeat labs today to eval abnormals a s listed above. FU once resulted. Patient Instructions - Continue all current prescribed medica tions, including aspirin, Plavix, and atorvastatin. - Use MiraLAX twice daily to manage cons tipation. - Take all meds as directed. - Follow-up with [place] cardiac rehab f or rehabilitation program participation. - Use nitroglycerin as directed for any new or increasing chest pain. - Monitor for fall hazards and be carefu l to reduce the risk of injury due to increased bruising risk with Aspirin and Clopidogrel. - Contact the clinic immediately if any new symptoms arise or in case of a fall with head impact. RTO as scheduled in March, sooner PRN Consent I obtained verbal consent from the patient for administering the nitroglycerin in emergency situations. The patient understands the preventive aspect and agrees to utilize it only as needed for acute symptoms. Discussion included potential adverse effects such as low blood pressure, dizziness, and headache. The patient acknowledges she will be cautious with her activities given her current medication regimen's side effect profile. Consent was obtained to initiate Pursue Invevana for diabetes management after discussing its benefits to her cardiovascular health and addressing affordability. Patient was informed and verbally consented to the use of an ambient scribe for clinic note documentation during this visit. Total time spent caring for the patient today was 60 minutes. This includes time spent before the visit reviewing the chart, time spent during the visit, and time spent after the visit on documentation, reviewing laboratory results, diagnostic imaging, medications, performing a medically necessary evaluation, counseling on diagnoses, care coordination, ordering appropriate tests, ordering appropriate medications, review of tests performed by other providers, reporting test results with the patient, communication with other healthcare providers. [facility] Medical History Exhaustion Memory change Anxiety Hypertension Diabetes Abnormal colonoscopy Surgical History (Updated 01/08/25 @ 11:39 by Ngoc Ordonez [facility]) H/O cervical spine surgery H/O section H/O elbow surgery H/O eye surgery H/O wrist surgery History of back surgery Family History (Updated 12/03/24 @ 08:36 by Cirilo Krueger MA) Sister Mental health disorder Substance abuse Cardiovascular disease Hypertension Thyroid disease Advancing dementia Brother Cancer Cardiovascular disease Hypertension Paternal Grandfather Cancer Father Cardiovascular disease Hypertension Mother Hypertension Daughter Thyroid disease Social History (Updated 12/03/24 @ 08:31 by Cirilo Krueger MA) Household Members: Spouse Housing: House Are you a primary healthcare advisory services manager to a significant other at home: No Do you presently have visiting nurse or other home services: No Alcohol intake: former Patient Tobacco Use Status: Never used Tobacco e-Cigarette/Vaping Use: Never Used Second Hand Smoke Exposure: No service: No Current occupational status: retired Cognitive needs: No Hearing needs: No Vision needs: No Questionnaire PHQ-9 Over the last 2 weeks, how often have you been bothered by any of the following problems? 58352 - PHQ-9 Billing: Patient declined-do not bill Source: Developed by Drs. Bashir Pillai, Vivienne Brower, Kendall Meehan and colleagues, with an educational yuki from [email or web address]. Thrive Questionnaire Date Thrive assessed: 01/08/25 I am a: Patient What is your living situation today?: I have a steady place to live Within the past 12 months, did the food you bought not last and you didn't have the money to get more?: Never true Within the past 12 months, did you worry whether your food would run out before you got money to buy more?: Never true Do you have trouble paying for medicines?: No Do you have trouble getting transportation to medical appointments?: No Do you have trouble paying your heating and electricity bill?: No Do you have trouble taking care of your child, family member or friend?: No Do you have trouble with day-to-day activities such as bathing, preparing meals, shopping, managing finances, etc.?: No Are you currently unemployed and looking for a job?: No Are you interested in more education?: No Please select the resources that you would like help with: None Currently or been in a relationship where the following occur: No concerns reported THRIVE Score: 0 KAREN-7 AMB Questionnaire KAREN-7 Date KAREN - 7 assessed: 01/08/25 Feeling nervous, anxious, or on edge: 0 = Not at all Not being able to stop or control worryin = Not at all Worrying too much about different things: 0 = Not at all Trouble relaxin = Not at all Being so restless that it is hard to sit still: 0 = Not at all Becoming easily annoyed or irritable: 0 = Not at all Feeling afraid as if something awful might happen: 0 = Not at all Total KAREN-7 score (0-4 normal; 5-9 mild; 10-14 moderate; 15-21 severe): 0 Source: Developed by Drs. Bashir Pillai, Vivienne Brower, Kendall Meehan and colleagues, with an educational yuki from [email or web address]. KAREN-7 Assessment Billing KAREN-7 Assessment Tool: KAREN-7 Assessment 96550 Physical exam (Primary Care) Vital Signs: Last Vital Signs Temp 97.1 F 01/08/25 11:40 Pulse 68 01/08/25 11:40 Resp 12 01/08/25 11:40 BP 124/72 01/08/25 11:40 Pulse Ox 96 01/08/25 11:40 Oxygen Delivery Method Room Air 01/08/25 11:40 BMI result Body Mass Index 34.6 Tobacco/Smoking Status: Tobacco use Status Tobacco use date assessed 01/08/25 01/08/25 11:34 Patient Tobacco Use Status Never used Tobacco 01/08/25 11:34 e-Cigarette/Vaping Use Never Used 01/08/25 11:34 Thrive Assessment: Date of Thrive Assessment Date Thrive assessed 01/08/25 01/08/25 11:34 Currently or been in a relationship where the following occur: No concerns reported Office Procedures Advance Care Planning Advance Care Planning discussion: Completed/Scanned Date of discussion: 01/08/25 Who was present: FULL CODE Forms completed: MOLST Time spent: 1-15 minutes, on File Actual minutes spent: 5 Coding Level of Care Code TCM High MDM <= 14 days Complex EM visit Add On G2211 Diagnoses Hospital discharge follow-up Z09 Coronary artery disease status post coronary stent insertion I25.10; Z95.5 Diabetes mellitus type 2 with complications E11.8 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 Iron deficiency anemia, unspecified iron deficiency anemia type D50.9 Iron deficiency anemia type: unspecified iron deficiency Slow transit constipation K59.01 Constipation type: slow transit constipation Fatty liver K76.0 Serum calcium elevated E83.52 Elevated lipase R74.8 Medical orders for life-sustaining treatment (MOLST) form in chart Z78.9 Full code status Z78.9 Physician orders for life-sustaining treatment (POLST) form indicates patient wish for full code resuscitation status Z78.9 Advance care planning Z71.89 CPT Codes Advance Care Planning - Time spent: 1-15 minutes, on File ([id number]) Additional Codes KAREN-7 Assessment Billing - KAREN-7 Assessment Tool: KAREN-7 Assessment [id number] ([id number]) Assessment & Plan Assessment & Plan (1) Hospital discharge follow-up: Code(s): Z09 - Encounter for follow-up examination after completed treatment for conditions other than malignant neoplasm (2) Coronary artery disease status post coronary stent insertion: Comment: 12/2024 [facility] status post left heart cath with successful stenting of severe unstable 1st diagonal disease with KELLEN. Recommend continuing uninterrupted aspirin Plavix and statin. Code(s): I25.10 - Atherosclerotic heart disease of [place] coronary artery without angina pectoris; Z95.5 - Presence of coronary angioplasty implant and graft Category: Surgical (3) Diabetes mellitus type 2 with complications: Comment: htn and hld Code(s): E11.8 - Type 2 diabetes mellitus with unspecified complications Category: Medical (4) Hypertension: Code(s): I10 - Essential (primary) hypertension Category: Medical Qualifiers: Hypertension type: secondary to endocrine disorders Qualified Code(s): I15.2 - Hypertension secondary to endocrine disorders (5) Iron deficiency anemia: Code(s): D50.9 - Iron deficiency anemia, unspecified Category: Medical Qualifiers: Iron deficiency anemia type: unspecified iron deficiency Qualified Code(s): D50.9 - Iron deficiency anemia, unspecified (6) Constipation: Code(s): K59.00 - Constipation, unspecified Category: Medical Qualifiers: Constipation type: slow transit constipation Qualified Code(s): K59.01 - Slow transit constipation (7) Fatty liver: Code(s): K76.0 - Fatty (change of) liver, not elsewhere classified Category: Medical (8) Serum calcium elevated: Code(s): E83.52 - Hypercalcemia (9) Elevated lipase: Code(s): R74.8 - Abnormal levels of other serum enzymes (10) Medical orders for life-sustaining treatment (MOLST) form in chart: Code(s): Z78.9 - Other specified health status Category: Medical (11) Full code status: Code(s): Z78.9 - Other specified health status Category: Medical (12) Physician orders for life-sustaining treatment (POLST) form indicates patient wish for full code resuscitation status: Code(s): Z78.9 - Other specified health status Category: Medical (13) Advance care planning: Code(s): Z71.89 - Other specified counseling Plan . Orders: Orders Comprehensive Met. Panel Today Z09 - Encounter for follow-up examination after completed treatment for conditions other than malignant neoplasm Lipase Today Z09 - Encounter for follow-up examination after completed treatment for conditions other than malignant neoplasm Calcium, Ionized Today Z09 - Encounter for follow-up examination after completed treatment for conditions other than malignant neoplasm Parathyroid Hormone Intact Today Z09 - Encounter for follow-up examination after completed treatment for conditions other than malignant neoplasm Complete Blood Count no Diff Today Z09 - Encounter for follow-up examination after completed treatment for conditions other than malignant neoplasm Medications: New losartan 100 mg PO DAILY 90 tabs 1RF nitroglycerin do not exceed 3 doses per episode 0.4 mg sublingual Q5M PRN 30 tabs 0RF chest pain canagliflozin (Invokana) 100 mg PO DAILY 90 tabs 1RF metoprolol succinate ER 25 mg PO DAILY 90 tabs 0RF amlodipine 10 mg PO DAILY 90 tabs 1RF atorvastatin 20 mg PO DAILY 90 tabs 1RF Discontinued doxycycline hyclate x 2 days Discontinued Reason: Patient Completed Course 100 mg PO BID 7 days 14 caps 0RF empagliflozin (Jardiance) Discontinued Reason: Insurance Denied 10 mg PO DAILY 90 tabs 0RF
[2025-01-08 11:40] VITALS: BP 124/72; PULSE 68; RESP 12; TEMP 36.2; O2SAT 96; BMI 34.6
--- OUTSIDE RECORDS SUMMARY | 2025-01-08 13:58 | XMS_ITS | Encounter Summary ---
Author Organization [facility] Address [address] [place] [address] Care Team Providers Care Rag Shredder Name Role Phone Ngoc Ordonez APRN Primary Care Provider + Encounter Details Date Type Department Care Team (Late st Contact Info) Description 12/23/2024 Orders Only [facility] [address] [place] [id number] Provider, File Room Social History Tobacco Use Types Packs/Day Years Used Date Smoking Tobacco: Never Assessed [facility] Utilities Answer Date Recorded In the past 12 months has th e electric, gas, oil, or water [employer] threatened to shut off services in your home? No 12/25/2024 AUDIT-C Answer Date Recorded Q1: How often do you have a drink containing alcohol? Never 12/24/2024 Q2: How many drinks containi ng alcohol do you have on a typical day when you are drinking? Patient does not drink Q3: How often do you have si x or more drinks on one occasion? Never 12/24/2024 Overall Financial Resource Strain (CARDIA) Answe r Date Recorded How hard is it for you to pa y for the very basics like food, housing, medical care, and heating? Not hard at all 12/25/2024 Hunger Vital Sign Answer Date Recorded Within the past 12 months, y ou worried that your food would run out before you got the money to buy more. Never true 12/25/19 25 Within the past 12 months, t he food you bought just didn't last and you didn't have money to get more. Never true 12/25/2024 PRAPARE - Transportation Answer Date Re corded In the past 12 months, has l ack of transportation kept you from medical appointments or from getting medications? No 12/07 In the past 12 months, has l ack of transportation kept you from meetings, work, or from getting things needed for daily living? No 12/25/2024 Housing Stability Vital Sign Answer Tee e Recorded In the last 12 months, was t here a time when you were not able to pay the mortgage or rent on time? No 12/25/2024 In the past 12 months, how m any times have you moved where you were living? 0 12/25/2024 At any time in the past 12 m [facility], were you homeless or living in a long term (including now)? No 12/25/2024 Sex and Gender Information Value Date Recorded Sex Assigned at Female 12/24/2024 1:09 PM EST Gender Identity Female 12/24/2024 1:09 PM EST Sexual Orientation Heterosexual (straight) 12/24 1:09 PM EST documented as of this encounter Plan of Treatment Not on file documented as of this encounter Results * CR Chest Archive for Reference only (12/24/2024 10:48 AM EST) Narrative MARGE - 12/24/2024 10:48 AM EST This study has been auto finalized and does not contain a result. File Room Provider IMG DIGITIZE FILMS MARGE [phone] documented in this encounter Visit Diagnoses Not on filedocumented in this encounter Care Teams Rag Shredder Relationship Specialty Start Date End Date Ngoc Ordonez, MATERIAL STRESS TESTER [address] [place] [phone] PCP - General Family Medicine 12/24/24 documented as of this encounter
--- OUTSIDE RECORDS SUMMARY | 2025-01-08 13:58 | XMS_ITS | Encounter Summary ---
Author Organization [facility] Address [address] [place] [address] Care Team Providers Care Pharmacist Apprentice Name Role Phone Ngoc Ordonez APRN Primary Care Provider + Reason for Visit * Auth/Cert Specialty Diagnoses / Procedures Referred By Rosa t Referred To Contact Diagnoses abnormal stress Procedures . Referral ID Status Reason Start Date Expiration Date Visits Re quested Visits Authorized [id number] 1 1 Encounter Details Date Type Department Care Team (Late st Contact Info) Description 12/24/2024 3:00 PM EST - 12/24/2024 3:58 PM EST Surgery [facility] V[facility] - Cardiac Catheterization Laboratory [address] [place] [address] Santosh Brady MD [address] [place] [address] [address] [place] [address] CORONARY ANGIO W/LV Social History Tobacco Use Types Packs/Day Years Used Date Smoking Tobacco: Never Assessed [facility] Utilities Answer Date Recorded In the past 12 months has [employer], gas, oil, or water [employer] threatened to shut off services in your [...] any time in the past 12 [facility], were you homeless or living in a senior living (including now)? No 12/25/2024 Sex and Gender Information Value Date Recorded Sex Assigned at Female 12/24/2024 1:09 PM EST Gender Identity Female 12/24/2024 1:09 PM EST Sexual Orientation Heterosexual (straight) 12/24 1:09 PM EST documented as of this encounter Last Filed Vital Signs Vital Sign Reading Time Taken Comments Blood Pressure 152/80 12/24/2024 3:01 PM EST Pulse 75 12/24/2024 3:01 PM EST Temperature 36.1 ??C (97 ??F) 12/24/2024 3:01 PM EST Respiratory Rate 16 12/24/2024 3:01 PM EST Oxygen Saturation 96% 12/24/2024 3:01 PM EST Inhaled Oxygen Concentration - - Weight 77.4 kg (170 lb 10.2 oz) 12/24/2024 1:37 PM EST Height 152.4 cm (5') 12/24/2024 1:37 PM EST Body Mass Index 33.33 12/24/2024 1:37 PM EST documented in this encounter Discharge Summaries * Keenan Arreguin MD - 12/25/2024 11:55 AM EST Inpatient Discharge Summary Patient Demographics BRIDGETT JERNIGAN 1955 69 y.o. Allergies Allergen Reactions Amoxicillin Unknown/Patient and Family Unable to Define Genital swelling Lisinopril Kidney injury Penicillin V Unknown/Patient and Family Unable to Define Sulfa Antibiotics Hives Adhesives/Tape Itching Codeine GI Intolerance/Nausea/Vomiting Gentamycin [Gentamicin] GI Intolerance/Nausea/Vomiting Admission Date: 12/24/2024 Admitting Provider: Juwan Willingham MD Discharge Provider: Keenan Arreguin MD Primary Care Physician at Discharge: Ngoc Ordonez APRN Discharge Date: 12/25/2024 Primary Discharge Diagnosis Unstable angina Secondary Discharge Diagnosis No past medical history on file. Procedure and Studies during Hospitalization: Surgical/Procedural Cases on this Admission Case IDs Date Procedure Surgeon Location Status [id number] 12/24/24 CORONARY ANGIO W/LV Santosh Brady MD [facility] Comp Consultations: Cardiology Discharge Medications Discharge Medications New Medications Sig aspirin enteric coated 81 MG EC tablet Commonly known as: ECOTRIN LOW STRENGTH Start taking on: December 26, 2024 Take 1 tablet (81 mg total) by mouth daily. Quantity: 30 tablet atorvastatin 40 MG tablet Commonly known as: LIPITOR Take 1 tablet (40 mg total) by mouth nightly. Quantity: 90 tablet clopidogrel 75 MG tablet Commonly known as: PLAVIX Start taking on: December 26, 2024 Take 1 tablet (75 mg total) by mouth daily. Quantity: 30 tablet metoPROLOL SUCCINATE 25 MG 24 hr tablet Commonly known as: TOPROL-XL Take 1 tablet (25 mg total) by mouth daily. Quantity: 30 tablet Medications To Continue Sig amLODIPine 10 MG tablet Commonly known as: NORVASC Take 1 tablet (10 mg total) by mouth daily. busPIRone 5 MG tablet Commonly known as: BUSPAR Take 1 tablet (5 mg total) by mouth 2 (two) times a day. ferrous sulfate 325 (65 FE) MG EC tablet Take 1 tablet (325 mg total) by mouth daily. Take 2 hours before or 4 hours after acid reducers. loratadine 10 MG dissolvable tablet Commonly known as: CLARITIN REDITABS Take 1 tablet (10 mg total) by mouth daily. losartan 100 MG tablet Commonly known as: COZAAR Take 1 tablet (100 mg total) by mouth daily. metFORMIN 1000 MG tablet Commonly known as: GLUCOPHAGE Take 1 tablet (1,000 mg total) by mouth 2 (two) times a day with meals. multivitamin with minerals tablet Take 1 tablet by mouth daily. omega-3 fatty acids 1000 MG Caps capsule Commonly known as: FISH OIL Take 1 capsule (1,000 mg total) by mouth daily. PANTOprazole 40 MG EC tablet Commonly known as: PROTONIX Take 1 tablet (40 mg total) by mouth every morning before breakfast. VITAMIN B 12 PO Take 1,000 mcg by mouth daily. Stopped Medications cloNIDine 0.1 MG tablet Commonly known as: CATAPRES Followup: [facility] of [address] [address] Ngoc Ordonez, SHINGLE INSPECTOR [address] [facility] [id number] Code Status: Full Code HPI and Hospital Course 69-year-old female with history of hypertension, fatty liver disease, diabetes, hyperlipidemia presented from [facility] for unstable angina S/p C with successful stenting of severe and stable first diagonal disease with KELLEN And doing well postprocedure. Ambulating without any recurrence of chest pain. Continue uninterrupted aspirin, Plavix, statin Started on metoprolol succinate 25 mg daily Continue home losartan, Norvasc Discussed with cardiology-will hold clonidine until follow-up in cardiology clinic for further adjustment The patient states that she has cardiology appointment in [place] however, the appointment isnot until late February. A cardiology appointment has been scheduled in our cardiology office on 01/07. The patient is in agreement to come here for cardiology evaluation. Discharge plan discussed with spouse by the bedside Physical Exam: Last Vitals Pulse:69,Resp:18,BP:(!) 160/82,SpO2:92 %,O2 Device: room air (none), , Weight:77.4 kg (170 lb 10.2 oz) Body mass index is 33.33 kg/m??. Temp Last 24 hrs: Temp Min: 97 ??F (36.1 ??C) Max: 98.4 ??F (36.9 ??C) General:Patient appears stated age, in no apparent distress Mouth: Mucous membranes moist Heart: S1,S2 normal, RRR, No murmurs Lungs: Clear to auscultation bilaterally Extremities: no pedal edema Neurologic: AAX3, moving all extremities Labs Results from last 7 days Lab Units 12/25/24 0533 12/24/24 1402 WHITE BLOOD CELL COUNT Thou/uL 5.1 6.0 HEMOGLOBIN g/dL 14.2 14.6 HEMATOCRIT % 42.9 43.4 PLATELET COUNT Thou/uL 245 270 Results from last 7 days Lab Units 12/25/24 0739 12/25/24 0533 12/24/24 1506 12/24/24 1402 SODIUM mmol/L -- 139 -- 139 POTASSIUM mmol/L -- 4.4 -- 3.8 CHLORIDE mmol/L -- 107 -- 103 CO2 mmol/L -- 24 -- 27 BUN mg/dL -- 10 -- 13 CREATININE mg/dL -- 0.9 -- 0.8 EGFR -- 69 -- 80 GLUCOSE mg/dL -- 131* -- 130* GLUCOSE, POC mg/dL 136* -- < > -- CALCIUM mg/dL -- 10.1 -- 10.2 < > = values in this interval not displayed. Results from last 7 days Lab Units 12/25/24 0533 ALK PHOS U/L 125* BILIRUBIN TOTAL mg/dL 0.6 ALBUMIN g/dL 4.6 ALT U/L 98* AST U/L 79* Lab Results Component Value Date CALCIUM 10.1 12/25/2024 Results from last 7 days Lab Units 12/25/24 0533 INR 1.1 Results from last 7 days Lab Units 12/24/24 2201 12/24/24 1823 12/24/24 1402 TROPONIN I, HIGH SENSITIVITY ng/L 29 5 <3 Imaging Echocardiogram (TTE) Comprehensive (Contrast PRN) Final Result CARDIAC CATHETERIZATION Final Result Tests Pending at Discharge: Pending Labs Order Current Status Hemoglobin A1c with Estimated Average Glucose (Add-On) In process Condition on Discharge: Stable Discharge Disposition: Home Time to coordinate discharge: 35 min Keenan Arreguin MD 12/25/2024 11:56 AM documented in this encounter Discharge Instructions * Discharge Instructions* Fara Barton RN - 12/25/2024 1:32 AM EST Images from the original note were not included. This patient education handout has been presented and reviewed with patient. Cardiac Rehabilitation Cardiac rehabilitation is a three day a week exercise program designed to help you recover from your cardiac event. You qualify to participate in cardiac rehab if you have had: Heart attack, angioplasty, stenting, open heart surgery, heart failure or heart transplant. What to Expect Supervised exercise while wearing a heart monitor Increase your strength and endurance Improve energy Improve your activities of daily living Maintain independent living Education - Lifestyle modification Nutrition Exercise Medications Stress reduction Smoking cessation How and When Can I Start? How: In order to start cardiac rehab, a referral must be sent to the cardiac rehab department from your manager operations and procurement. [facility] Referral is included in your cardiac rehab folder. The Cardiac rehab staff will schedule an initial assessment with you before starting the exercise program. When: Depending your diagnosis, when you can start cardiac rehab will vary: Open Heart Surgery - 4-6 weeks after surgery Angioplasty / Stents - 1-2 weeks after the procedure Heart Attack / Transplant- At manager operations and procurement discretion Heart Failure - 6 weeks after discharge from hospital If you have any further questions or would like more information, please contact [facility] [address] [place] [address] Fax: [place] [address] [facility] - CARDIAC REHAB [address] [place] [id number] [place] [address] [facility] Address: [address] [place] [address] [address] [place] [employer] [facility] at: [email or web address] * Discharge Instr - Other Orders* Oswaldo Aragon RN - 12/24/2024 4:12 PM EST Cardiac Rehabilitation What is cardiac rehabilitation? Cardiac rehabilitation is a treatment program that helps improve the health and well-being of people who have heart problems. Cardiac rehabilitation includes exercise training, education, and counseling to help you get stronger and return to an active lifestyle. This program can help you get betterfaster and reduce any future hospital stays. Why might I need cardiac rehabilitation? Cardiac rehabilitation programs can help when you have or have had: A heart attack. Heart failure. Peripheral artery disease. Coronary artery disease. Angina. Lung or breathing problems. Cardiac rehabilitation programs are also used when you have had: Coronary artery bypass graft surgery. Heart valve replacement. Heart stent placement. Heart transplant. Aneurysm repair. What are the benefits of cardiac rehabilitation? Cardiac rehabilitation can help you: Reduce problems like chest pain and trouble breathing. Change risk factors that contribute to heart disease, such as: Smoking. High blood pressure. High cholesterol. Diabetes. Being inactive. Weighing over 30% more than your ideal weight. Diet. Improve your emotional outlook so you feel: More hopeful. Better about yourself. More confident about taking care of yourself. Get support from health experts as well as other people with similar problems. Learn healthy ways to manage stress. Learn how to manage and understand your medicines. Teach your family about your condition and how to participate in your recovery. What happens in cardiac rehabilitation? You will be assessed by a cardiac rehabilitation team. They will check your health history and do aphysical exam. You may need blood tests, exercise stress tests, and other evaluations to make sure that you are ready to start cardiac rehabilitation. The cardiac rehabilitation team works with you to make a plan based on your health and goals. Your program will be tailored to fit you and your needs and may change as you progress. You may work witha health care team that includes: Doctors. Nurses. Dietitians. Psychologists. Exercise specialists. Physical and occupational therapists. What are the phases of cardiac rehabilitation? A cardiac rehabilitation program is often divided into phases. You advance from one phase to the next. Phase 1 This phase starts while you are still in the hospital. You may: Start by walking in your room and then in the cagle. Do some simple exercises with a therapist. Phase 2 This phase begins when you go home or to another facility. You will travel to a cardiac rehabilitation center or another place where rehabilitation is offered. This phase may last 8-12 weeks. During this phase: You will slowly increase your activity level while being closely watched by a nurse or therapist. You will have medical tests and exams to monitor your progress. Your exercises may include strength or resistance training along with activities that cause your heart to beat faster (aerobic exercises), such as walking on a treadmill. Your condition will determine how often and how long these sessions last. You may learn how to: Cook heart-healthy meals. Control your blood sugar, if this applies. Stop smoking. Manage your medicines. You may need help with scheduling or planning how and when to take your medicines. If you have questions about your medicines, it is very important that you talk with your health care provider. Phase 3 This phase continues for the rest of your life. In this phase: There will be less supervision. You may continue to participate in cardiac rehabilitation activities or become part of a group in your community. You may benefit from talking about your experience with other people who are facing similar challenges. How and When Can I Start? How: In order to start cardiac rehab, a referral must be sent to the cardiac rehab department from your manager operations and procurement. [facility] Referral is included in your cardiac rehab folder. The Cardiac Rehab staff will schedule an initial assessment with you before starting the exercise program. When: Depending on your diagnosis, when you can start cardiac rehab will vary: Open Heart Surgery - 4-6 weeks after surgery Angioplasty / Stents - 1-2 weeks after the procedure Heart Attack / Transplant - At manager operations and procurement discretion Heart Failure - 6 weeks after discharge from hospital Follow these instructions at home: Take doln-foj-zhjstvz and prescription medicines only as told by your health care provider. Keep all follow-up visits as told by your health care provider. This is important. Get help right away if: You have severe chest discomfort, especially if the pain is crushing or pressure-like and spreads to your arms, back, neck, or jaw. Do not wait to see if the pain will go away. You have weakness or numbness in your face, arms, or legs, especially on one side of the body. Your speech is slurred. You are confused. You have a sudden, severe headache or loss of vision. You have shortness of breath. You are sweating and have nausea. You feel dizzy or faint. You are fatigued. These symptoms may represent a serious problem that is an emergency. Do not wait to see if the symptoms will go away. Get medical help right away. Call your local emergency services (911 in the [place] Do not drive yourself to the hospital. Summary Cardiac rehabilitation is a treatment program that helps improve the health and well-being of people who have heart problems. A cardiac rehabilitation program is often divided into phases. You advance from one phase to the next. The cardiac rehabilitation team works with you to make a plan based on your health and goals. Cardiac rehabilitation includes exercise training, education, and counseling to help you get stronger and return to an active lifestyle. This information is not intended to replace advice given to you by your health care provider. Make sure you discuss any questions you have with your health care provider. [facility] [address] [place] [address] [facility] - Cardiac Rehab [address] [place] [address] [facility] [address] Document Released: 05/12/2006 Document Revised: 03/09/2015 Document Reviewed: 03/26/2014 ExitCare?? Patient Information ??2015 [employer]. This information is not intended to replace advice given to you by your health care provider. Make sure you discuss any questions you have with your health care provider. documented in this encounter Medications at Time of Discharge Medication Sig Dispensed Refills Start Date End Date amLODIPine (NORVASC) 10 MG tablet Take 1 tablet (10 mg total) by mouth daily. 10/08/2024 aspirin enteric coated (ECOTRIN LOW STRENGTH) 81 MG EC tabletIndications:NSTEMI (non-ST elevated myocardial infarction) (HCC) Take 1 tablet (81 mg total) by mouth daily. 30 tablet 2 12/26/2024 03/26/2025 atorvastatin (LIPITOR) 40 MG tabletIndications:NSTEMI (non-ST elevated myocardial infarction) (HCC) Take 1 tablet (40 mg total) by mouth nightly. 90 tablet 3 12/25/2024 12/20/2025 busPIRone (BUSPAR) 5 MG tablet Take 1 tablet (5 mg total) by mouth 2 (two) times a day. clopidogrel (PLAVIX) 75 MG tabletIndications:NSTEMI (non-ST elevated myocardial infarction) (HCC) Take 1 tablet (75 mg total) by mouth daily. 30 tablet 2 12/26/2024 03/26/2025 Cyanocobalamin (VITAMIN B 12 PO) Take 1,000 mcg by mouth daily. ferrous sulfate 325 (65 FE) MG EC tablet Take 1 tablet (325 mg total) by mouth daily. Take 2 hours before or 4 hours after acid reducers. loratadine (CLARITIN REDITABS) 10 MG dissolvable tablet Take 1 tablet (10 mg total) by mouth daily. losartan (COZAAR) 100 MG tablet Take 1 tablet (100 mg total) by mouth daily. 10/01/2024 metFORMIN (GLUCOPHAGE) 1000 MG tablet Take 1 tablet (1,000 mg total) by mouth 2 (two) times a day with meals. 12/11/2024 metoPROLOL SUCCINATE (TOPROL-XL) 25 MG 24 hr tabletIndications:NSTEMI (non-ST elevated myocardial infarction) (HCC) Take 1 tablet (25 mg total) by mouth daily. 30 tablet 12/25/2024 01/24/2025 Multiple Vitamins-Minerals (multivitamin with minerals) tablet Take 1 tablet by mouth daily. omega-3 fatty acids (FISH OIL) 1000 MG Cap capsule Take 1 capsule (1,000 mg total) by mouth daily. PANTOprazole (PROTONIX) 40 MG EC tablet Take 1 tablet (40 mg total) by mouth every morning before breakfast. 10/15/2024 documented as of this encounter Progress Notes * Malena Graham PA-C - 12/25/2024 12:36 PM EST Images from the original note were not included. Patient Name: Bridgett Jernigan : 1955 PCP: Ngoc Ordonez APRN Impression & Recommendations Bridgett Jernigan is a 69-year-old female with past medical history of hypertension, fatty liver disease, cervical fusions is a transfer from [facility] for unstable angina. Today, patient appears warm, euvolemic, well-perfused. Patient with some residual chest discomfort though is much improved than yesterday. Pt overall feeling better. Cr 0.9, BUN 10. Pt resting comfortably on room air, on tele sinus, no events. Echo 12/25/24: EF 61%, LV normal size, normal wall thickness, No WMA. Diastolic function normal. RV normal size and normal systolic function. Left atria mildly dilated, no significantly valvular abnormalities. Pt right radial access site clean with dry dressing. 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 NSTEMI s/p KELLEN to first diagonal - asa - plavix - atorvastatin 40 mg daily - metoprolol succinate 25 mg - follow up with OP manager operations and procurement within 1-2 weeks of DC - scheduled January [address] Hays - pt will then follow up with her manager operations and procurement in [place] - telemetry - Mg>2, K>4 - EKG for CP HTN - metoprolol as above - amlodipine 10 mg daily - losartan 50 mg daily - will hold initiation of clonidine until pt can tolerate above Subjective Subjective/Events: No events overnight. Patient overall feeling well this morning. Patient states she has some residual chest discomfort though is much improved from yesterday. Patient was able to complete 4 laps around the unit though did have some shortness of breath which resolved quickly. Patient's at bedside. Discussed postprocedural care instructions for the right wrist and activity restrictions. Patient showed understanding by asking questions for clarification and also repeating back instructions. Alsospoke about medication compliance and the importance of taking medications as prescribed every day.Patient is understanding by repeating back medications and how often she would take them. Review of systems: Review of Systems Constitutional: Negative for activity change, chills, diaphoresis and unexpected weight change. HENT: Negative for congestion, rhinorrhea, sinus pressure, sinus pain, sneezing and sore throat. Eyes: Negative for visual disturbance. Respiratory: Negative for cough, chest tightness, shortness of breath and wheezing. Cardiovascular: Negative for chest pain, palpitations and leg swelling. Gastrointestinal: Positive for constipation. Negative for abdominal pain, blood in stool, diarrhea,nausea and vomiting. Genitourinary: Negative for frequency and hematuria. Musculoskeletal: Negative for arthralgias and back pain. Skin: Negative for color change. Neurological: Negative for dizziness, syncope, weakness, light-headedness and headaches. Hematological: Does not bruise/bleed easily. Psychiatric/Behavioral: Negative for confusion. Complete ROS was performed in detail and is negative except as otherwise documented above. Objective Medications: Scheduled Meds: amLODIPine, 10 mg, Oral, Daily aspirin enteric coated, 81 mg, Oral, Daily atorvastatin, 40 mg, Oral, Nightly busPIRone, 5 mg, Oral, BID clopidogrel, 75 mg, Oral, Daily insulin lispro, 1-6 Units, Subcutaneous, TID with meals metoPROLOL TARTRATE, 25 mg, Oral, Q12H PETTY Continuous Infusions: PRN Meds: acetaminophen glucose OR glucose OR dextrose OR dextrose OR glucagon docusate sodium ipratropium-albuterol naloxone ondansetron ondansetron No past medical history on file. Past Surgical History: Procedure Laterality Date CC CORONARY ANGIO W/LV N/A 12/24/2024 Procedure: CORONARY ANGIO W/LV; Surgeon: Santosh Brady MD; Location: [facility]; Service: Cardiovascular; Laterality: N/A; CC KELLEN PLACEMENT, 1ST ARTERY N/A 12/24/2024 Procedure: KELLEN PLACEMENT, 1ST ARTERY; Surgeon: Santosh Brady MD; Location: [facility]; Service: Cardiovascular; Laterality: N/A; No family history on file. Physical exam: BP (!) 160/82 (BP Location: Left arm, Patient Position: Lying) Pulse 69 Temp 98.3 ??F (36.8 ??C) (Oral) Resp 18 Ht 1.524 m (5') Wt 77.4 kg (170 lb 10.2 oz) SpO2 92% BMI 33.33 kg/m?? Physical Exam Vitals and nursing note reviewed. Constitutional: General: She is not in acute distress. Appearance: Normal appearance. She is not ill-appearing, toxic-appearing or diaphoretic. HENT: Head: Normocephalic and atraumatic. Nose: Nose normal. Mouth/Throat: Mouth: Mucous membranes are moist. Eyes: General: No scleral icterus. Extraocular Movements: Extraocular movements intact. Conjunctiva/sclera: Conjunctivae normal. Neck: Vascular: No carotid bruit or JVD. Cardiovascular: Rate and Rhythm: Normal rate and regular rhythm. Chest Wall: PMI is not displaced. Pulses: Normal pulses. Radial pulses are 2+ on the right side and 2+ on the left side. Dorsalis pedis pulses are 2+ on the right side and 2+ on the left side. Heart sounds: Normal heart sounds. No murmur heard. No friction rub. No gallop. Pulmonary: Effort: Pulmonary effort is normal. No respiratory distress. Breath sounds: Normal breath sounds. No wheezing, rhonchi or rales. Chest: Chest wall: No tenderness. Abdominal: General: There is no distension. Palpations: Abdomen is soft. Tenderness: There is no abdominal tenderness. Musculoskeletal: Cervical back: Neck supple. Right lower leg: No edema. Left lower leg: No edema. Comments: No gross deformities Skin: General: Skin is warm. Capillary Refill: Capillary refill takes less than 2 seconds. Findings: No rash. Neurological: General: No focal deficit present. Mental Status: She is alert and oriented to person, place, and time. Psychiatric: Mood and Affect: Mood and affect normal. Studies reviewed: Labs: Intake/Output Summary (Last 24 hours) at 12/25/2024 1409 Last data filed at 12/25/2024 0842 Gross per 24 hour Intake 1697.23 ml Output 5 ml Net 1692.23 ml Results from last 7 days Lab Units 12/25/24 0533 12/24/24 1402 WHITE BLOOD CELL COUNT Thou/uL 5.1 6.0 HEMOGLOBIN g/dL 14.2 14.6 HEMATOCRIT % 42.9 43.4 PLATELET COUNT Thou/uL 245 270 Results from last 7 days Lab Units 12/25/24 0739 12/25/24 0533 12/24/24 1506 12/24/24 1402 SODIUM mmol/L -- 139 -- 139 POTASSIUM mmol/L -- 4.4 -- 3.8 CHLORIDE mmol/L -- 107 -- 103 CO2 mmol/L -- 24 -- 27 BUN mg/dL -- 10 -- 13 CREATININE mg/dL -- 0.9 -- 0.8 EGFR -- 69 -- 80 GLUCOSE mg/dL -- 131* -- 130* GLUCOSE, POC mg/dL 136* -- < > -- CALCIUM mg/dL -- 10.1 -- 10.2 < > = values in this interval not displayed. Results from last 7 days Lab Units 12/25/24 0533 ALK PHOS U/L 125* BILIRUBIN TOTAL mg/dL 0.6 ALBUMIN g/dL 4.6 ALT U/L 98* AST U/L 79* Lab Results Component Value Date CALCIUM 10.1 12/25/2024 Results from last 7 days Lab Units 12/25/24 0533 INR 1.1 Results from last 7 days Lab Units 12/24/24 2201 12/24/24 1823 12/24/24 1402 TROPONIN I, HIGH SENSITIVITY ng/L 29 5 <3 No results found for: BNP No results found for: TSH , HGBA1C , HSDIMER Echocardiogram (TTE) Comprehensive (Contrast PRN) Result Date: 12/25/2024 The left ventricle is normal in size. Wall thickness is normal. Left ventricular systolic function is normal. The quantitative EF by 2D Torrez biplane is 61%. No wall motion abnormalities are present. Diastolic function is normal. The right ventricle is normal in size. Right ventricular systolic function is normal. The left atrial cavity is mildly dilated. No hemodynamically significant valvularabnormalities detected. There is no previous study for comparison in our system. CARDIAC CATHETERIZATION Result Date: 12/24/2024 Table formatting from the original result was not included. Images from the original result were not included. [facility] at [facility] - Cardiac Catheterization Laboratory PATIENT DEMOGRAPHIC INFORMATION Name: Bridgett Jernigan : 1955 69 y.o. Sex: female Gender: female Procedure Date: 12/24/2024 Referring Physician: Darian Valente PCP: No primary care provider on file. Procedure(s): Procedures: * CORONARY ANGIO W/LV * KELLEN PLACEMENT, 1ST ARTERY Indication: Appliance Worker: Santosh Brady MD Net Web Application Developer(s): Vivek Kenny and None Anginal Classification: Typical Angina Heart Failure Classification: N/A Stress Test: Vasodilator Perfusion Scan Risk of Ischemia: High IMPRESSIONS Successful stenting of severe unstable first diagonal disease with a Synergy drug-eluting stent. Mild disease of left main, LAD proper, circumflex, andright coronary artery. RECOMMENDATIONS DAPT for ideally 12 months. Aggressive cardiovascular risk factor modification. CLINICAL HISTORY 69-year-old woman with unstable angina, abnormal stress test transferred from [facility]. ACCESS Access: Right Radial Artery Sheath(s): 6Fr [place] Sheath Hemostasis Method: TR Band DIAGNOSTIC FINDINGS Findings Diagnostic Dominance: Right Number of lesions: 1 Left Main The vessel is large. The vessel exhibits minimal luminal irregularities. Left Anterior Descending The left anterior descending has diffuse very mild minimal irregularity. The first diagonal is a medium size vessel with a 95% slightly hazy stenosis. First Diagonal Branch 1st Diag lesion is 95% stenosed. NAS flow is 3.The lesion is not complex (non high-C). Left Circumflex The vessel is moderate in size. The vessel exhibits minimal luminal irregularities. Right Coronary Artery The vessel exhibits minimal luminal irregularities. There is diffuse mild irregularity throughout the mid right coronary artery up to about 20 to 30%. A very small acute marginal branch supplying the RV that is about 1 mm in size has a 90% ostial stenosis. Pressures LV 85 mmHg/3 mmHg 3 mmHg AO84 mmHg/58 mmHg 72 mmHg LV gram: Not performed INTERVENTION Intervention Findings Intervention Number of interventions: 3 1st Diag lesion Intervention Drug-eluting stent was successfully placed. Stent was deployed by way of balloon expansion. Maximum pressure: 12 mariana. Inflation time: 8 sec. Supplies used: [id number] CORONARY STENT SYSTEM SYNERGY XD MR 2.25MM 16MM DELIVERY SYS Intervention Angioplasty was performed following stent deployment. Maximum pressure: 14 mariana. Inflation time: 6 sec. Multiple inflations Supplies used: [id number] CATHETER BALLOON DIL NC EMERGE MR 2.5MM 12MM 2 LUMTAPER TIP Intervention Angioplasty was performed following stent deployment. Maximum pressure: 18 mariana. Inflation time: 6 sec. Supplies used: [id number] CATHETER BALLOON DIL NC EMERGE MR 2.5MM 12MM 2 LUM TAPER TIP Post-Intervention Lesion Assessment The intervention was successful. The guidewirecrossed the lesion. Post-intervention NAS flow is 3. Lesion had 10 mm of its length treated. The patient was therapeutically anticoagulated with intravenous bivalirudin. A 6 [place] EBU 3.5 guide satfairly well. The lesion was crossed with a Prowater and directly stented with a 2.25 x 16 mm Synergy drug-eluting stent back to the ostium of the diagonal. The stent was postdilated at high pressure with a 2.5 x 12 mm noncompliant balloon up to 16 mariana. Final angiography demonstrated excellent result of the stented segment with normal flow into the distal diagonal. The LAD flow was excellent Supplies used: [id number] CORONARY STENT SYSTEM SYNERGY XD MR 2.25MM 16MM DELIVERY SYS There is a 0% r esidual stenosis post intervention. Complications: None Anesthesia: The procedure was performed under moderate conscious sedation by an independent trained observer (RN) and supervised by the under signed attending MD. See meds list. Sedation Time: 44 minutes 35 seconds Estimated Blood Loss: 5 mL Verbal Orders and Supervisory Attestation: As the attending physician, I verify I was present throughout the entire procedure and provided physician orders as documented in the specialty electronic documentation system. Furthermore I directly supervised all non physicians providers who assisted me during the procedure and I accept delegation of supervisory responsibility for all post procedure patient care activity related to this patient that I request from a [facility] PA/SHINGLE INSPECTOR/fellow/staff member. Santosh Brady MD [facility] 12/24/2024 4:04 PM 24 hour telemetry: Normal sinus rhythm/sinus bradycardia rates 50-70, no events TTE: 12/25/2024 The left ventricle is normal in size. Wall thickness is normal. Left ventricular systolic function is normal. The quantitative EF by 2D Torrez biplane is 61%. No wall motion abnormalities are present. Diastolic function is normal. The right ventricle is normal in size. Right ventricular systolic function is normal. The left atrial cavity is mildly dilated. No hemodynamically significant valvular abnormalities detected. There is no previous study for comparison in our system. Cath: 12/24/2024 Successful stenting of severe unstable first diagonal disease with a Synergy drug-eluting stent. Mild disease of left main, LAD proper, circumflex, and right coronary artery. DAPT for ideally 12 months. Aggressive cardiovascular risk factor modification. Malena Graham PA-C 12/25/24 2:09 PM Associated attestation - Beau Hays MD - 12/25/2024 2:42 PM EST I have seen, examined, and evaluated the patient. I have reviewed chart records, including laboratory and diagnostic study results. I have discussed the case with the Physician Net Web Application Developer/SHINGLE INSPECTOR and we have formulated the plan. I agree with the below findings as noted in the history, physical exam, results, and assessment/plan. * Yuki Wu RN - 12/25/2024 12:25 PM EST 12:26 pt discharge to home. Remote telemetry removed. IV removed. Paperwork provided and reviewed w/ family and pt. * Neisha Tello RN - 12/24/2024 6:13 PM EST Patient arrived on unit @ 1800 from labeling machine operator via stretcher accompanied by 2 Cardiac hand collator's on [facility]. A + O x4. Vital signs stable. Assisted into bed and made comfortable. No present c/o pain/discomfort. Remote tele monitoring placed and verified normal sinus in 66. Right wrist dressing c/d/i with +CMS, perfusion and motion in fingers. Soft to touch, no s/s of hematoma. TR band in place. Arm board in place. IV infusing per MAR order. Safety measures checked and in place. Call light within reach. Will continue to monitor. * Neisha Tello RN - 12/24/2024 1:45 PM EST Patient arrived on unit @ 1440 from [facility] via stretcher. A + O x4. Vital signs stable. Assisted into bed and made comfortable. No present c/o pain/discomfort. Remote tele monitoring placedand verified normal sinus in 70s. IV infusing heparin 12 units/kg/hr x 76.6 kg from outside hospital, continued same infusion.Safety measures checked and in place. Call light within reach. Will continue to monitor. MD Willingham made aware of patient's arrival for orders to be placed. documented in this encounter H&P Notes * Juwan Willingham MD - 12/24/2024 3:07 PM EST HISTORY & PHYSICAL Admit Date: 12/24/2024 1:26 PM Patient's Primary Care Physician: No primary care provider on file. CHIEF COMPLAINT Chest pain HISTORY OF PRESENT ILLNESS 69 year old female with history of hypertension, hyperlipidemia, diabetes who presents from an outside facility with chest discomfort elevated blood pressure, nausea. Initiated on heparin drip at that facility and sent here for evaluation. Continues to feel discomfort here. Denies any fevers or chills. No vomiting or diarrhea. No other new concerns. PAST HISTORY No past medical history on file. HTN HLD DM2 No past surgical history on file. No family history on file. Social History Tobacco Use Smoking status: Not on file Smokeless tobacco: Not on file Substance Use Topics Alcohol use: Not on file ALLERGIES Allergies Allergen Reactions Amoxicillin Unknown/Patient and Family Unable to Define Genital swelling Lisinopril Kidney injury Penicillin V Unknown/Patient and Family Unable to Define Sulfa Antibiotics Hives Adhesives/Tape Itching Codeine GI Intolerance/Nausea/Vomiting Gentamycin [Gentamicin] GI Intolerance/Nausea/Vomiting HOME MEDICATIONS Current Outpatient Medications Medication Instructions amLODIPine (NORVASC) 10 mg, Oral, Daily busPIRone (BUSPAR) 5 mg, Oral, 2 times daily cloNIDine (CATAPRES) 0.1 mg, Oral, 2 times daily Cyanocobalamin (VITAMIN B 12 PO) 1,000 mcg, Oral, Daily doxycycline (DORYX) 100 mg, Oral, 2 times daily ferrous sulfate 325 mg, Oral, Daily, Take 2 hours before or 4 hours after acid reducers. loratadine (CLARITIN REDITABS) 10 mg, Oral, Daily losartan (COZAAR) 100 mg, Oral, Daily metFORMIN (GLUCOPHAGE) 1,000 mg, Oral, 2 times daily with meals Multiple Vitamins-Minerals (multivitamin with minerals) tablet 1 tablet, Oral, Daily omega-3 fatty acids (FISH OIL) 1,000 mg, Oral, Daily PANTOprazole (PROTONIX) 40 mg, Oral, Daily before breakfast REVIEW OF SYSTEMS PHYSICAL EXAM Last Vitals Pulse:75,Resp:16,BP:(!) 152/80,SpO2:96 %,O2 Device: room air (none), , Weight:77.4 kg (170 lb 10.2 oz) Body mass index is 33.33 kg/m??. Temp Last 24 hrs: Temp Min: 97 ??F (36.1 ??C) Max: 98.4 ??F (36.9 ??C) Gen: Age appropriate female in no acute distress CVS: S1S2 RRR Resp: CTA b/l Abdomen/GI: soft NT ND Ext: No edema, normal pulses Skin: no rashes Neuro/psych: Alert and oriented x 3 Relevant data reviewed Notable labs are: No results found for: WBC , HGB , HCT , PLT No results found for: NA , K , CL , CO2 , BUN , CREAT , GLUC No results found for: CALCIUM , MG , PHOS No results found for: AST , ALT , ALKPHOS , BILITOT , BILIDIR , ALBUMIN , PROT Imaging Studies Echocardiogram (TTE) Comprehensive (Contrast PRN) (Results Pending) CARDIAC CATHETERIZATION (Results Pending) Inpatient Medications sodium chloride, 100 mL/hr, Last Rate: 100 mL/hr (12/24/24 1506) heparin (porcine) IV infusion - low dose protocol, 12 Units/kg/hr, Last Rate: 12 Units/kg/hr (12/24/24 1425) [START ON 12/25/2024] amLODIPine, 10 mg, Oral, Daily busPIRone, 5 mg, Oral, BID insulin lispro, 1-6 Units, Subcutaneous, TID with meals [Transfer Hold] acetaminophen (TYLENOL) tablet 650 mg 650 mg glucose (GLUTOSE 15) 40 % oral gel 37.5 g 1 Tube Or glucose (GLUTOSE 15) 40 % oral gel 75 g 2 Tube Or dextrose 50 % solution 12.5 g 12.5 g Or dextrose 50 % solution 25 g 25 g Or glucagon (GLUCAGEN) injection 1 mg 1 mg [Transfer Hold] docusate sodium (COLACE) capsule 100 mg 100 mg [Transfer Hold] heparin (porcine) 1000 unit/mL injection 2,300 Units 30 Units/kg [Transfer Hold] ipratropium-albuterol (DUONEB) 0.5-2.5 mg/3 mL nebulizer solution 3 mL 3 mL [Transfer Hold] ondansetron (ZOFRAN-ODT) disintegrating tablet 4 mg 4 mg ASSESSMENT & PLAN: 69 year old female with history of hypertension, hyperlipidemia, diabetes who presents from an outside facility with chest discomfort elevated blood pressure, nausea. 1. NSTEMI Primary reason for presentation. Admit to inpatient. Continue heparin drip. Start statin and beta-morris along with aspirin. Additional diagnostics and therapeutics pending results of the cardiac catheterization. 2. Diabetes mellitus type 2 Diabetic diet when tolerating orals. Insulin sign scale. 3. Hyperlipidemia Statin 4. Hypertension Currently normotensive. Notes a history of labile blood pressure and on multiple antihypertensives.For the time being, I will continue her on Norvasc as well as metoprolol. Monitor blood pressure and consider restarting clonidine although she was hypotensive on arrival to the prior facility. Medications should be added individually given her history of labile pressure. Principal Problem: NSTEMI (non-ST elevated myocardial infarction) (HCC) (POA: Yes) Active Problems: Essential hypertension (POA: Unknown) Type 2 diabetes mellitus without complication, with long-term current use of insulin (HCC) (POA: Not Applicable) Mixed hyperlipidemia (POA: Unknown) Fatty liver (POA: Unknown) Resolved Problems: VTE Time Out IMPROVE SCORE: 1 (12/24/2024 3:01 PM) Interpretation - Low Risk Chemical Prophylaxis heparin (porcine) IV infusion 25,000 units in 500 mL 0.45% NaCl (premix) Intravenous Continuous heparin (porcine) 1000 unit/mL injection 2,300 Units Intravenous Every 6 hours PRN Mechanical Prophylaxis SCDs are ordered Patient currently has an VALERIE of 12/26/2024 Click to update the Expected Discharge Date Communication:all questions answered at the bedside Code Status: Full Code Juwan Willingham MD 12/24/2024 3:07 PM documented in this encounter Consult Notes * Malena Graham PA-C - 12/24/2024 2:50 PM ESTAssociated Order(s): IP CONSULT TO CARDIOLOGY Images from the original note were not included. Patient Name: Bridgett Jernigan : 1955 PCP: No primary care provider on file. General Cardiology Consult Impression & Recommendations Bridgett Jernigan is a 69-year-old female with past medical history of hypertension, fatty liver disease, cervical fusions is a transfer from [facility] for unstable angina. Today, patient appears warm, well-perfused, euvolemic. Patient has had substernal chest pain x 1 year with escalation since this summer. Yesterday patient experienced chest pain at rest and has been persistent since. Patient went to the hospital due to hypotension, chest pain with associated nauseaand tachypnea. Patient had recent stress test which was abnormal per patient, unable to obtain records as it is a different medical record system. Per patient's chart in her folder troponin was negative x 2, EKG without ST or T wave dynamic changes. Concerns for unstable angina as pt has risk factors (obesity, hypertension, family history CAD), escalating chest pain, and his recent abnormal stress test so will send patient for LHC today. Per patient's record from [facility] H&H 14.3/41.5, platelets 232, potassium 4.3, BUN 15,creatinine 0.85, troponin <2.7 x 2 (scale <3.5 - 17 ng/L), negative viral panel, chest x-ray WNL, telemetry normal sinus rhythm - no events. BP 150-160 SBP. Patient denies any ripping or tearing back pain suggestive of dissection. Patient does not appear to be in acute decompensated heart failure exam. Patient not tachycardic, denies pleuritic chest pain, not hypoxic making PE less likely. Patient does not appear to be in cardiogenic shock nor have tamponade physiology. Patient consented for LHC. Consent handed to cath nurse in the patient's room. Unstable angina -Continue heparin drip until LHC -further recommendations pending results -N.p.o. -Aspirin -Hold atorvastatin in setting of transaminitis, will repeat LFTs -Metoprolol 25 mg daily -EKG for chest pain -Follow-up with outpatient manager operations and procurement within 1 week of discharge Risk, benefits and alternatives have been discussed. Risks include, but are not limited to bleeding, stroke, , damage to blood vessels requiring surgical repair, renal failure, and allergic reaction to contrast dye. Also discussed if a stent is placed, dual antiplatelet therapy will be needed for at least one year, and that life threatening complications can result from any missed doses or early cessation of therapy. The patient expressed understanding of all the above, endorses the ability to adhere to any needed medication regimens, and is agreeable to proceed. All questions have been answered. Subjective History of Present Illness Bridgett Jernigan is a 69-year-old female with past medical history of hypertension, fatty liver disease, cervical fusions is a transfer from [facility] for unstable angina. Over the past couple years patient has had intermittent exertional chest pain that is relieved withrest. Patient's chest discomfort is not positional nor reproducible to palpation. Over the summer patient is noted escalating chest discomfort with radiation to the left shoulder and interscapular region. Patient also notes that she has had her antihypertensive regimen adjusted and she has taken her blood pressure at home and reached 200/100. When this occurs she takes clonidine with good effect.Patient reports a recent nuclear stress test (approximately 2 weeks ago?) and reports that it was abnormal. Unable to obtain results due to different medical record system. Yesterday, patient was making cookies and playing with her grandchildren when she developed substernal chest pain that persisted. Patient did not feel right and also had concurrent nausea and GI symptoms. Patient also endorses sudden onset panting . Patient had difficulty walking down the stairsand she checked her blood pressure which read 84/44. Patient unable to walk up the stairs without becoming short of breath which is been progressive over the past 6 months or so. Patient had recent medication change and increase in amlodipine from 5 to 10 mg approximately 3 to 4 months ago with good effect and patient blood pressure has been within normal limits per patient. Patient denies any syn copal episodes, palpitations, hematuria, melena. Patient denies having any prior cardiac procedures. Patient does endorse some GI discomfort, though has not had any diarrhea or constipation. Patient does have history of GERD and takes omeprazole daily, patient does state that this chest discomfort she is currently having is not similar to her GERD sensation. Patient denies any weight gain, weightloss, lower extremity edema, abdominal fullness. Patient denies any orthopnea, syncopal episodes. Patient has extensive family history of coronary artery disease, father with heart attack, mother with DVT/PE. Patient denies any smoking history, alcohol use or drug use. Patient just moved from [place] to [facility]. Patient has a manager operations and procurement in [place]and has yet to be seen by her manager operations and procurement in [place]. Review of systems: Review of Systems Constitutional: Negative for activity change, chills, diaphoresis and unexpected weight change. HENT: Negative for postnasal drip, rhinorrhea, sinus pressure, sinus pain, sneezing and sore throat. Eyes: Negative for visual disturbance. Respiratory: Negative for cough, chest tightness, shortness of breath and wheezing. Cardiovascular: Positive for chest pain. Negative for palpitations and leg swelling. Gastrointestinal: Positive for nausea. Negative for abdominal pain, blood in stool, diarrhea and vomiting. Genitourinary: Negative for frequency and hematuria. Musculoskeletal: Negative for arthralgias. Skin: Negative for color change. Neurological: Negative for dizziness, syncope, weakness, light-headedness and headaches. Hematological: Does not bruise/bleed easily. Psychiatric/Behavioral: Negative for confusion. Complete ROS was performed in detail and is negative except as otherwise documented above. Objective No past medical history on file. No past surgical history on file. No family history on file. Home Meds: No current outpatient medications on file. Inpatient Meds: Scheduled Meds: Continuous Infusions: heparin (porcine) IV infusion - low dose protocol, 12 Units/kg/hr, Last Rate: 12 Units/kg/hr (12/24/24 1425) PRN Meds: acetaminophen docusate sodium heparin (porcine) ipratropium-albuterol ondansetron Physical exam: BP (!) 160/85 (BP Location: Left arm) Pulse 77 Temp 98.4 ??F (36.9 ??C) (Oral) Resp 18 Ht 1.524 m (5') Wt 77.4 kg (170 lb 10.2 oz) SpO2 94% BMI 33.33 kg/m?? Physical Exam Vitals and nursing note reviewed. Constitutional: General: She is not in acute distress. Appearance: Normal appearance. She is not ill-appearing, toxic-appearing or diaphoretic. HENT: Head: Normocephalic and atraumatic. Nose: Nose normal. Mouth/Throat: Mouth: Mucous membranes are moist. Eyes: General: No scleral icterus. Extraocular Movements: Extraocular movements intact. Conjunctiva/sclera: Conjunctivae normal. Neck: Vascular: No carotid bruit or JVD. Cardiovascular: Rate and Rhythm: Normal rate and regular rhythm. Chest Wall: PMI is not displaced. Pulses: Normal pulses. Radial pulses are 2+ on the right side and 2+ on the left side. Dorsalis pedis pulses are 2+ on the right side and 2+ on the left side. Posterior tibial pulses are 2+ on the right side and 2+ on the left side. Heart sounds: Normal heart sounds. No murmur heard. No friction rub. No gallop. Pulmonary: Effort: Pulmonary effort is normal. No tachypnea, bradypnea, accessory muscle usage, prolonged expiration, respiratory distress or retractions. Breath sounds: Normal breath sounds. No wheezing, rhonchi or rales. Chest: Chest wall: No tenderness. Abdominal: General: Abdomen is protuberant. There is no distension. Palpations: Abdomen is soft. Tenderness: There is no abdominal tenderness. Musculoskeletal: Cervical back: Neck supple. Right lower leg: No edema. Left lower leg: No edema. Comments: No gross deformities Skin: General: Skin is warm. Capillary Refill: Capillary refill takes less than 2 seconds. Findings: Bruising present. No rash. Comments: Right AC ecchymosis Neurological: General: No focal deficit present. Mental Status: She is alert and oriented to person, place, and time. Psychiatric: Mood and Affect: Mood and affect normal. Studies reviewed: Labs: No intake or output data in the 24 hours ending 12/24/24 1451 No results found for: CALCIUM , PHOS No results found for: BNP No results found for: TSH , HGBA1C , HSDIMER CR Chest Archive for Reference only Result Date: 12/24/2024 This study has been auto finalized and does not contain a result. ECG: NSR, nonspecific T wave abnormality Cath: Pending Telemetry: NSR rate 75 Malena Graham PA-C 12/24/24 2:51 PM Associated attestation - Santosh Brady MD - 12/25/2024 9:00 AM EST ATTENDING I have seen and examined the patient. I have reviewed the relevant data. I agree with the plan as delineated. Ongoing chest pain with negative markers but abnormal stress testing. Rationale behind left heart catheterization and PCI detailed documented in this encounter Miscellaneous Notes * Case Coordination-Payor Communication - Romero Heck - 12/25/2024 12:36 PM EST PATIENT DISCHARGED 12/25/2024 Per [place] [facility] General Statutes Sec: [id number]: Notification of determination shall be mailed or otherwise communicated within 2 business days of receipt of all information necessary to complete the review. Please fax authorization determination to [phone] or call [phone]. * Case Coordination-Payor Communication - Romero Heck - 12/25/2024 12:36 PM EST 2nd request: Please follow-up with the Clinical Resource Management Department via fax ([phone]) or phone ([phone]) with status of authorization ELIECER. Thank you. * Plan of Care - Zoya Hidalgo RN - 12/25/2024 12:36 PM ESTSummary: case management note Case Management Care Plan Note Final Discharge Plan: 01 - home or self-care Summary: Admitted due to NSTEMI. Seen by cardio and had cath. Lives at home with spouse independently. Medically cleared for discharge. To have cardio follow up here and then will follow up with own cardio in [facility]. No services needed. Patient in agreement. Discharged home with spouse independently. Copy of IM Given to Patient or Qualified Person: Patient (12/24 at 7:45pm in registration) (12/25/2024 4:02 PM) Plan: home independently (12/25/2024 4:03 PM) Patient/Family in Agreement with Plan: yes (12/25/2024 4:03 PM) Final Discharge Disposition Code: 01 - home or self-care (12/25/2024 4:03 PM) No data recorded Case Management Care Plan Note Summary: Recommendations: Admission Type: inpatient Referral Source: interdisciplinary rounds Reason for Consult: discharge planning Source of Information: patient Limitations on Visitors/Phone Calls: none Current or Previous Service: none Adaptive Services: not applicable Does the Patient Have a CT DNR Boykins Bracelet or State DNR Form?: no Clinical Trial: not applicable Does Patient Have Advance Directives?: no Primary Care Provided by: self Provides Primary Care For: no one Family Caregiver if Needed: spouse Quality of Family Relationships: helpful; involved; supportive Able to Return to Prior Arrangements: yes Primary Source of Support/Comfort: spouse Primary Roles/Responsibilities: retired Resource/Environmental Concerns: none Transportation Concerns: none Hearing Difficulty or Deaf: no Wear Glasses or Blind: yes Concentrating, Remembering or Making Decisions Difficulty: no Difficulty Communicating: no Difficulty Eating/Swallowing: no Doing Errands Independently Difficulty (such as shopping): no Equipment Currently Used at Home: none Change in Functional Status Since Onset of Current Illness/Injury: no Current Activity Tolerance: excellent Medications: independent Meal Preparation: independent Housekeeping: independent Laundry: independent Shopping: independent Copy of IM Given to Patient or Qualified Person: Patient (12/24 at 7:45pm in registration) Plan: home independently Patient/Family in Agreement with Plan: yes Patient/Family Anticipates Transition to: home with family Patient/Family Anticipated Services at Transition: none Transportation Anticipated: car, drives self; family or friend will provide * Critical Care Communication - Lilliam Ashraf RN - 12/24/2024 6:02 PM EST Pt A&Ox4, VSS. Pt denies pain or SOB. Pt's RRA site CDI no sign of hematoma. +CMS checks WDL. Multiple attempts were made to update pt's by this RN, but pt's husbands phone kept going straight to [facility]. Angiomax stopped per orders at 1800. Plan for TR band to be removed at 2000. Report called and given to Neisha ALONZO. Pt transported on monitor with RN assist. Handoff completed at [facility]. * Case Coordination-Payor Communication - June Mcnamara RN - 12/24/2024 3:53 PM EST Admission Note Type: (Inpt/Obsv): Inpatient Date of Admission: 12/24/2024 Admitting Dx: NSTEMI (non-ST elevated myocardial infarction) (HCC) [I21.4] PMH: No past medical history on file. HPI: Patient is a 69 year old female with history of hypertension, hyperlipidemia, diabetes who presents from an outside facility with chest discomfort elevated blood pressure, nausea. Initiated on heparin drip at that facility and sent here for evaluation. Continues to feel discomfort here. Cardiology - Impression & Recommendations Bridgett Jernigan is a 69-year-old female with past medical history of hypertension, fatty liver disease, cervical fusions is a transfer from [facility] for unstable angina. Today, patient appears warm, well-perfused, euvolemic. Patient has had substernal chest pain x 1 year with escalation since this summer. Yesterday patient experienced chest pain at rest and has been persistent since. Patient went to the hospital due to hypotension, chest pain with associated nauseaand tachypnea. Patient had recent stress test which was abnormal per patient, unable to obtain records as it is a different medical record system. Per patient's chart in her folder troponin was negative x 2, EKG without ST or T wave dynamic changes. Concerns for unstable angina as pt has risk factors (obesity, hypertension, family history CAD), escalating chest pain, and his recent abnormal stress test so will send patient for [facility] today. Per patient's record from [facility] H&H 14.3/41.5, platelets 232, potassium 4.3, BUN 15,creatinine 0.85, troponin <2.7 x 2 (scale <3.5 - 17 ng/L), negative viral panel, chest x-ray WNL, telemetry normal sinus rhythm - no events. BP 150-160 SBP. Patient denies any ripping or tearing back pain suggestive of dissection. Patient does not appear to be in acute decompensated heart failure exam. Patient not tachycardic, denies pleuritic chest pain, not hypoxic making PE less likely. Patient does not appear to be in cardiogenic shock nor have tamponade physiology. Patient consented for [facility]. Vitals: Date/Time Temp Pulse Resp BP SpO2 O2 Device 12/24/24 15:12:05 -- -- -- -- -- nasal cannula 12/24/24 1501 97 (36.1) 75 16 152/80 Abnormal 96 room air (none) 12/24/24 1352 -- 77 -- -- -- -- 12/24/24 1337 98.4 (36.9) 75 18 160/85 Abnormal 94 room air (none) 3L NC Labs/Diagnostics: Latest Reference Range & Units 12/24/24 14:02 White Blood Cell Count 4.0 - 11.0 Thou/uL 6.0 Red Blood Cell Count 4.00 - 5.40 Mil/uL 4.66 Hemoglobin 11.7 - 15.7 g/dL 14.6 Hematocrit 35.0 - 47.0 % 43.4 Latest Reference Range & Units 12/24/24 14:02 Sodium 136 - 145 mmol/L 139 Potassium 3.4 - 4.5 mmol/L 3.8 Chloride 98 - 107 mmol/L 103 CO2, POC 20 - 31 mmol/L 27 Anion Gap 5 - 15 9 BUN 9 - 23 mg/dL 13 Creatinine 0.6 - 1.0 mg/dL 0.8 Bun / Creat Ratio 10.0 - 25.0 Ratio 16 Glucose 74 - 106 mg/dL 130 (H) Calcium 8.7 - 10.5 mg/dL 10.2 eGFR >59 80 Troponin I, High Sensitivity <34 ng/L <3 Delta (HS Troponin I) NO PREVIOUS RESULT (H): Data is abnormally high ECG 12 Lead - Result Data - 12/24/24 13:55 Component Name Reference Units Result Value Ventricular rate BPM 74 Atrial rate BPM 74 P-R interval ms 174 QRS duration ms 90 Q-T interval ms 394 QTC calculation (Bazett) ms 438 P axis degrees 36 R axis degrees 3 T axis degrees 71 Narrative & Impression Normal sinus rhythm Nonspecific T wave abnormality Abnormal ECG No previous ECGs available Confirmed by MD Myron, Sanya ([id number]) on 12/24/2024 2:14:31 PM Imaging Studies Echocardiogram (TTE) Comprehensive (Contrast PRN) (Results Pending) CARDIAC CATHETERIZATION (Results Pending) Orders/Treatment Plan: ASSESSMENT & PLAN: 69 year old female with history of hypertension, hyperlipidemia, diabetes who presents from an outside facility with chest discomfort elevated blood pressure, nausea. 1. NSTEMI Primary reason for presentation. Admit to inpatient. Continue heparin drip. Start statin and beta-morris along with aspirin. Additional diagnostics and therapeutics pending results of the cardiac catheterization. 2. Diabetes mellitus type 2 Diabetic diet when tolerating orals. Insulin sign scale. 3. Hyperlipidemia Statin 4. Hypertension Currently normotensive. Notes a history of labile blood pressure and on multiple antihypertensives.For the time being, I will continue her on Norvasc as well as metoprolol. Monitor blood pressure and consider restarting clonidine although she was hypotensive on arrival to the prior facility. Medications should be added individually given her history of labile pressure. Principal Problem: NSTEMI (non-ST elevated myocardial infarction) (HCC) (POA: Yes) Medications: Medications Scheduled Medication Ordered Dose/Rate, Route, Frequency Last Action amLODIPine (NORVASC) tablet 10 mg 10 mg, PO, Daily Ordered aspirin enteric coated (ECOTRIN LOW STRENGTH) tablet 81 mg 81 mg, PO, Daily Ordered atorvastatin (LIPITOR) tablet 40 mg 40 mg, PO, Nightly Ordered busPIRone (BUSPAR) tablet 5 mg 5 mg, PO, BID Ordered insulin lispro (HumaLOG/ADMELOG) 100 units/mL injection 1-6 Units 1-6 Units, SC, TID with meals Ordered metoPROLOL TARTRATE (LOPRESSOR) tablet 25 mg 25 mg, PO, Q12H PETTY Ordered Continuous Medication Ordered Dose/Rate, Route, Frequency Last Action sodium chloride 0.9% (NS) infusion 100 mL/hr, 100 mL/hr, IV, Continuous Rate/Dose Change, 100 mL/hr, 100 mL/hr at 12/24 1506 heparin (porcine) IV infusion 25,000 units in 500 mL 0.45% NaCl (premix) 12 Units/kg/hr, 18.576 mL/hr, IV, Continuous Stopped, 12/24 1445 PRN Medication Ordered Dose/Rate, Route, Frequency Last Action sodium chloride 0.9 % (NS) bolus No Dose/Rate, Continuous PRN New Bag, 250 mL, 999 mL/hr at 12/24 1529 [Transfer Hold] acetaminophen (TYLENOL) tablet 650 mg Medication was not reviewed on transfer 650 mg, PO, Q6H PRN Ordered bivalirudin (ANGIOMAX) 250 mg in dextrose (D5W) 5 % 50 mL infusion No Dose/Rate, Continuous PRN New Bag, 1.75 mg/kg/hr, 27.09 mL/hr at 12/24 1534 bivalirudin (ANGIOMAX) 5 mg/mL IV bolus from bag via smart pump No Dose/Rate, PRN Given, 58.05 mg at 12/24 1534 dextrose 50 % solution 12.5 g (Or Linked Group #1) 12.5 g, IV, Q15 Min PRN Ordered dextrose 50 % solution 25 g (Or Linked Group #1) 25 g, IV, Q15 Min PRN Ordered [Transfer Hold] docusate sodium (COLACE) capsule 100 mg Medication was not reviewed on transfer 100 mg, PO, Q12H PRN Ordered fentaNYL (SUBLIMAZE) 100 mcg/2 mL injection No Dose/Rate, PRN Given, 50 mcg at 12/24 1536 glucagon (GLUCAGEN) injection 1 mg (Or Linked Group #1) 1 mg, IM, Daily PRN Ordered glucose (GLUTOSE 15) 40 % oral gel 37.5 g (Or Linked Group #1) 1 Tube, PO, Q15 Min PRN Ordered glucose (GLUTOSE 15) 40 % oral gel 75 g (Or Linked Group #1) 2 Tube, PO, Q15 Min PRN Ordered [Transfer Hold] heparin (porcine) 1000 unit/mL injection 2,300 Units Medication was not reviewed ontransfer 30 Units/kg, IV, Q6H PRN Ordered iohexol (OMNIPAQUE) 300 mg/mL injection No Dose/Rate, PRN Given, 50 mL at 12/24 1535 [Transfer Hold] ipratropium-albuterol (DUONEB) 0.5-2.5 mg/3 mL nebulizer solution 3 mL Medication was not reviewed on transfer 3 mL, NEBULIZATION, Q6H PRN Ordered lidocaine (XYLOCAINE) 2 % injection No Dose/Rate, PRN Given, 5 mL at 12/24 1520 midazolam (VERSED) 2 mg/2 mL injection No Dose/Rate, PRN Given, 1 mg at 12/24 1521 nitroglycerin 1000 mcg/2.5 mL vial No Dose/Rate, PRN Given, 200 mcg at 12/24 1541 [Transfer Hold] ondansetron (ZOFRAN-ODT) disintegrating tablet 4 mg Medication was not reviewed on transfer 4 mg, PO, Q6H PRN Ordered verapamil (ISOPTIN) injection No Dose/Rate, PRN Given, 5 mg at 12/24 1521 Bed Type: Telemetry Sign June Mcnamara RN 12/24/2024 3:53 PM documented in this encounter Plan of Treatment Scheduled Orders Name Type Priority Associated Diagnoses Orde r Schedule ECG 12 lead - post PCI procedure on arrival to floor ECG Routine Once for 1 Occur rences starting 12/24/2024 until 12/24/2024 Scheduled Referrals Name Type Priority Associated Diagnoses Order Schedule Amb Referral to Cardiac Rehabilitation Outpatient Referral Routine NSTEMI (non-ST elevated myocardial infarction) (HCC) Ordered: 12/25/2024 documented as of this encounter Procedures Procedure Name Priority Date/Time Associated Diagnosis Comments ECHOCARDIOGRAM (TTE) COMPREHENSIVE (CONTRAST PRN) Routine 12/25/2024 8:38 AM EST HEMOGLOBIN A1C WITH ESTIMATED AVERAGE GLUCOSE Routine 12/25/2024 8:00 AM EST POCT GLUCOSE, FINGERSTICK (POCGLU) (NO CHARGE) Routine 12/25/2024 7:39 AM EST COMPLETE BLOOD COUNT, WITH DIFFERENTIAL Routine 12/25/2024 5:33 AM EST PARTIAL THROMBOPLASTIN TIME (PTT) Routine 12/25/2024 5:33 AM EST PROTIME-INR Routine 12/25/2024 5:33 AM EST LIPID PANEL Routine 12/25/2024 5:33 AM EST COMPREHENSIVE METABOLIC PANEL Routine 12/25/2024 5:33 AM EST TROPONIN I, HIGH SENSITIVITY Routine 12/24/2024 10:01 PM EST POCT GLUCOSE, FINGERSTICK (POCGLU) (NO CHARGE) Routine 12/24/2024 8:23 PM EST TROPONIN I, HIGH SENSITIVITY Routine 12/24/2024 6:23 PM EST POCT GLUCOSE, FINGERSTICK (POCGLU) (NO CHARGE) Routine 12/24/2024 6:15 PM EST ECG 12-LEAD Routine 12/24/2024 4:09 PM EST CARDIAC CATHETERIZATION Routine 12/24/19 3:56 PM EST NSTEMI (non-ST elevated myocardial infarction) (HCC) CARDIAC CATHETERIZATION Routine 12/24/19 3:56 PM EST NSTEMI (non-ST elevated myocardial infarction) (HCC) POCT ACT (ACTIVATED CLOTTING TIME) Routine 12/24/2024 3:45 PM EST POCT GLUCOSE, FINGERSTICK (POCGLU) (NO CHARGE) Routine 12/24/2024 3:06 PM EST HEPARIN ASSAY (ANTI-XA) Routine 12/24/19 2:03 PM EST TROPONIN I, HIGH SENSITIVITY Routine 12/24/2024 2:02 PM EST COMPLETE BLOOD COUNT, WITHOUT DIFFERENTIAL Routine 12/24/2024 2:02 PM EST BASIC METABOLIC PANEL Routine 12/24/2024 2:02 PM EST ECG 12-LEAD Routine 12/24/2024 1:55 PM EST documented in this encounter Results * ECHOCARDIOGRAM COMPREHENSIVE WITH CONTRAST (12/25/2024 8:38 AM EST) IVS Mean (F:0.6-0.9, M:0.6-1.0) 1.1 cm IVS (F:0.6-0.9, M:0.6-1.0) 1.1 cm LVIDD Mean (F:3.8-5.2, M:4.2-5.8) 4.1 cm LVIDD (F:3.8-5.2, M:4.2-5.8) 4.1 cm LVIDS (F:2.2-3.5, M:2.5-4.0) 2.1 cm LVIDS (F:2.2-3.5, M:2.5-4.0) 2.1 cm LVOT diameter mean 2.0 cm LVOT diameter 2.0 cm PW Mean (F:0.6-0.9, M:0.6-1.0) 1.1 cm PW (F:0.6-0.9, M:0.6-1.0) 1.1 cm LV Diastolic Volume Mean 92.8 mL LV Diastolic Volume 93 mL LV Systolic Volume Mean 35.6 mL LV Systolic Volume 36 mL LVOT mn grad mean 1.9 mmHg LVOT mn grad 1.9 mmHg LVOT peak ángel mean 0.9 m/s LVOT peak ángel 0.9 m/s LVOT VTI MEAN 21.0 cm LVOT VTI 21.4 cm RV Free wall pk S' Mean 11.5 cm/s RV Free wall pk S' 11.5 cm/s LA volume Mean 67.9 mL LA volume 67.9 mL AV mean gradient mean 5.3 mmHg AV mean gradient 5.4 mmHg Ao peak ángel mean 1.5 m/s Ao peak ángel 1.5 m/s Ao VTI Mean 35.7 cm Ao VTI 36.2 cm MV Peak A-Wave Mean 81.6 cm/s MV Peak A-Wave 81.6 cm/s E wave decelartion time mean 218 ms E wave decelartion time 218 ms MV Peak E-Wave Mean 66.2 cm/s MV Peak E-Wave 66.2 cm/s MV E' Lateral Velocity Mean 9.23 cm/s MV E' Lateral Velocity 9.23 cm/s MV E' Septal Velocity Mean 7.02 cm/s MV E' Septal Velocity 7.02 cm/s Tapse Mean 1.7 cm Tapse 1.7 cm TR Peak Ángel Mean 1.8 m/s TR Peak Ángel 1.9 m/s Ascending aorta mean 3.1 cm Ascending aorta 3.1 cm Sinuses of Valsalva Mean 3.0 cm Sinuses of Valsalva 3.0 cm Inferior Vena Cava Diameter Mean 1.1 cm Inferior Vena Cava Diameter 1.1 cm Heart Rate 69 bpm BP Systolic 160 mmHg BP Diastolic 82 mmHg Height 60.00 inches Weight 170.00 lbs LV Mass Index (F:43-95, M:49-115) 86.9 g/m2 LA Volume Index (16-34) 39.0 mL/m2 LV Diastolic Volume Index (F:29-61, M:35-75) 53.4 mL/m2 LV Systolic Volume Index (F:8-24, M:11-31) 20.7 mL/m2 E/E' ratio 7.17 LVOT area 3.1 cm2 E/A ratio 0.81 Ascending aorta Index 1.8 cm/m2 Sinuses of Valsalva Index 1.7 cm/m2 LV mass 151.3 g Torrez BP EF (55-75) 61 % E/E' Average 8.3 E/E' Septal 9.4 E/E' Lateral 7.2 LV RWT 0.54 BSA 1.74 m2 TR Peak Gradient 14 mmHg Est. RA pres 3 mmHg AV peak gradient 9.0 mmHg RVSP 17 mmHg PASP 17.4 mmHg LVOT stroke volume 67 mL SVI 37 mL/m2 Left Ventricular Cardiac Index 2.7 L/min/m2 Left Ventricular Cardiac Output 4.6 L/min AV area by cont VTI 1.9 cm2 Valve area - Index 1.1 cm2/m2 Dimensionless Index 0.59 LVOT SI 38.57 mL/m2 AV LVOT peak gradient 3.2 mmHg Anatomical Region Laterality Modality Ultrasound Narrative 12/25/2024 10:40 AM EST ?The left ventricle is normal in size. Wall thickness is normal. Left ventricular systolic function is normal. The quantitative EF by 2D Torrez biplane is 61%. No wall motion abnormalities are present. Diastolic function is normal. ?The right ventricle is normal in size. Right ventricular systolic function is normal. ?The left atrial cavity is mildly dilated. ?No hemodynamically significant valvular abnormalities detected. ?There is no previous study for comparison in our system. Technical Details Definity contrast was used during the study. Overall the study quality was fair. The study was difficult due to patient's body habitus. Left Ventricle The left ventricle is normal in size. Wall thickness is normal. Left ventricular systolic function is normal. The quantitative EF by 2D Torrez biplane is 61%. No wall motion abnormalities are present. Diastolic function is normal. Right Ventricle The right ventricle is normal in size. Right ventricular systolic function is normal. Left Atrium The left atrial cavity is mildly dilated. Right Atrium Right atrial size is normal. Based on IVC diameter and collapse, right atrial pressure is estimated to be normal (3 mmHg). Mitral Valve The mitral valve is structurally normal. There is mild mitral annular calcification. There is trace mitral regurgitation. Tricuspid Valve The tricuspid valve is structurally normal. There is trace tricuspid regurgitation. The estimated right ventricular systolic pressure is normal at 17 mmHg. Aortic Valve The aortic valve is tricuspid. There is aortic valve sclerosis without evidence of stenosis.There is no aortic regurgitation or stenosis. Pulmonic Valve The pulmonic valve is structurally normal. There is trace pulmonic regurgitation. Ascending Aorta The aortic root dimension is normal. Pericardium Echogenic material is seen in the anterior pericardial space, consistent with a fat pad. There is no pericardial effusion. Prior Study There is no previous study for comparison in our system. Juwan Willingham MD CV ECHO ORDERABLES * (ABNORMAL) Hemoglobin A1c with Estimated Average Glucose (Add-On) (12/25/2024 8:00 AM EST) Hemoglobin A1C 6.5(H) <5.7 % 12/25/2024 5:38 PM [facility] Comment: A1c% ? Interpretation 5.7 - 6.0 ?Increase risk of diabetes 6.1 - 6.4 ?Higher risk of diabetes > or = 6.5 ?? Consistent with diabetes Diabetes Care, 33(Supp 1):S1-S61, 2010 Estimated Average Glucose 140 mg/dL 12/25/2024 5:38 PM [facility] Blood Blood specimen / Unknown 12/25/2024 8:00 AM EST 12/25/2024 8:12 AM EST Keenan Arreguin MD LAB BLOOD ORDERABLES Performing Organization Address City/[facility]/ZIP Co de Phone Number [address] [address], [address] [address] * (ABNORMAL) POCT Glucose, Fingerstick (12/25/2024 7:39 AM EST) POC Glucose 136(H) 65 - 99 mg/dL 12/25/2024 7:46 AM EST Comment:Notified RN Blood specimen / Unknown 12/25/2024 7:39 AM EST 12/25/2024 7:46 AM EST Keenan Arreguin MD POINT OF CARE TEST O RDERABLES Performing Organization Address City/[facility]/ZIP Co de Phone Number HOSPITAL LAB See Below * (ABNORMAL) LIPID PANEL (12/25/2024 5:33 AM EST) Cholesterol, Total 168 <200 mg/dL 2024 8:24 AM EST [facility] Triglycerides 135 <150 mg/dL 12/25/2024 8:24 AM EST [facility] Cholesterol, HDL 43(L) >60 mg/dL 12/25/19 8:24 AM EST [facility] Estimated LDL 98 <130 mg/dL 12/25/2024 8:24 AM EST [facility] Comment: NCEP Guidelines: ?< 100 mg/dL ??Optimal 100 - 129 mg/dL ??Near Optimal/Above Optimal 130 - 159 mg/dL ??Borderline High 160 - 189 mg/dL ??High ??>/= 190 mg/dL ??Very High Cholesterol/HDL Ratio 3.9 0.0 - 5.0 Ratio 12/25/2024 8:24 AM EST [facility] Comment: Relative Risk ? Ratio - Male ? Ratio - Female ?0.5 ?3.4 ?3.3 ?1.0 ?5.0 ?4.4 ?2.0 ?9.6 ?7.1 ?3.0 ? 23.4 ? 11.0 Plasma/Serum 12/25/2024 5:33 AM EST 12/25/2024 6:08 AM EST Kristina PETERS LAB BLOOD ORDERABLES Performing Organization Address [facility] de Phone Number [facility] [address] [place] [address], * Protime-INR (12/25/2024 5:33 AM EST) Anticoagulant IV HEPARIN, UNFRACTIONATED 12/24/2024 11:01 PM EST [facility] Prothrombin Time (PT) 12.1 10.0 - 13.5 seconds 12/25/2024 6:19 AM EST [facility] INR 1.1 12/25/2024 6:19 AM EST [facility] Comment:INR Therapeutic Rang es: Standard dose anticoagulant 2.0 to 3.0, High dose anticoagulant 2.5-3.5. Blood Plasma specimen / Unknown 12/25/2024 5:33 AM EST 12/25/2024 6:08 AM EST Easton Aguirre PA-C LAB BLOOD ORDERABLES Performing Organization Address [facility] [place] [address], * Partial Thromboplastin Time (PTT) (12/25/2024 5:33 AM EST) Anticoagulant IV HEPARIN, UNFRACTIONATED 12/24/2024 11:01 PM EST [facility] Partial Thromboplastin Time (PTT) 33 26 - 37 seconds 12/25/2024 6:19 AM EST [facility] Blood Plasma specimen / Unknown 12/25/2024 5:33 AM EST 12/25/2024 6:08 AM EST Easton Aguirre PA-C LAB BLOOD ORDERABLES [facility] [address] [place] [address], * (ABNORMAL) Comprehensive Metabolic Panel (12/25/2024 5:33 AM EST) Glucose 131(H) 74 - 106 mg/dL 12/25/2024 6:35 AM EST [facility] Comment:Fasting: <100 mg/dL, Non-Fasting: <200 mg/dL (ADA 2005) Blood Urea Nitrogen (BUN) 10 9 - 23 mg/dL 12/25/2024 6:35 AM EST [facility] Creatinine 0.9 0.6 - 1.0 mg/dL 12/25/2024 6:35 AM EST [facility] eGFR 69 >59 12/25/2024 6:35 AM EST [facility] Comment:CKD-EPI (2020) in mL /min/1.73 sq meters. Sodium 139 136 - 145 mmol/L 12/25/2024 6:35 AM EST [facility] Potassium 4.4 3.4 - 4.5 mmol/L 12/25/2024 6:35 AM EST [facility] Chloride 107 98 - 107 mmol/L 12/25/2024 6:35 AM EST [facility] CO2 24 20 - 31 mmol/L 12/25/2024 6:35 AM EST [facility] Calcium 10.1 8.7 - 10.5 mg/dL 12/25/2024 6:35 AM EST [facility] Alkaline Phosphatase 125(H) 32 - 122 U/L 12/25/2024 6:35 AM EST [facility] Aspartate Aminotrans (AST) 79(H) <34 U/L 12/25/2024 6:35 AM EST [facility] Alanine Aminotrans (ALT) 98(H) 7 - 35 U/L 12/25/2024 6:35 AM EST [facility] Bilirubin, Total 0.6 0.3 - 1.2 mg/dL 12/25/2024 6:35 AM EST [facility] Protein, Total 7.5 5.7 - 8.2 g/dL 12/25/2024 6:35 AM EST [facility] Albumin 4.6 3.4 - 4.8 g/dL 12/25/2024 6:35 AM [facility] BUN/Creatinine Ratio 11 10.0 - 25.0 Ratio 12/25/2024 6:35 AM EST [facility] Globulin 2.9 1.5 - 3.9 g/dL 12/25/2024 6:35 AM [facility] Albumin/Globulin Ratio 1.6 1.5 - 2.5 Ratio 12/25/2024 6:35 AM EST [facility] Anion Gap 8 5 - 15 12/25/2024 6:35 AM [facility] Blood (Plasma/Serum) 12/25/2024 5:33 AM EST 12/25/2024 6:08 AM EST Kristina PETERS LAB BLOOD ORDERABLES [facility] [address] [place] [address], * (ABNORMAL) Complete Blood Count, with Differential (12/25/2024 5:33 AM EST) White Blood Cell Count 5.1 4.0 - 11.0 Thou/uL 12/25/2024 6:12 AM [facility] Platelet Count 245 150 - 450 Thou/uL 12/25/2024 6:12 AM [facility] Hemoglobin 14.2 11.7 - 15.7 g/dL 12/25/2024 6:12 AM [facility] Hematocrit 42.9 35.0 - 47.0 % 12/25/2024 6:12 AM [facility] Red Blood Cell Count 4.57 4.00 - 5.40 Mil/uL 12/25/2024 6:12 AM [facility] MCV 94 80 - 100 fL 12/25/2024 6:12 AM [facility] MCH 31.1(H) 27.0 - 31.0 pg 12/25/2024 6:12 AM [facility] MCHC 33.1 30.0 - 36.0 g/dL 12/25/2024 6:12 AM [facility] RDW 12.2 11.5 - 14.5 % 12/25/2024 6:12 AM [facility] MPV 9.4 7.5 - 12.5 fL 12/25/2024 6:12 AM [facility] Neutrophils Auto 53.0 % 12/25/19 6:12 AM [facility] Immature Granulocytes 0.2 % 12/25/2024 6:12 AM [facility] Lymphocytes Auto 29.1 % 12/25/19 6:12 AM [facility] Monocytes Auto 10.8 % 12/25/2024 6:12 AM [facility] Eosinophils Auto 4.7 % 12/25/19 6:12 AM [facility] Basophils Auto 2.2 % 12/25/2024 6:12 AM [facility] Abs Neutrophils Auto 2.69 2.00 - 7.50 Thou/uL 12/25/2024 6:12 AM [facility] Abs Immature Granulocytes 0.01 0.00 - 0.10 Thou/uL 12/25/2024 6:12 AM EST [facility] Abs Lymphocytes Auto 1.48(L) 1.50 - 4.50 Thou/uL 12/25/2024 6:12 AM EST [facility] Abs Monocytes Auto 0.55 0.20 - 1.50 Thou/uL 12/25/2024 6:12 AM EST [facility] Abs Eosinophils Auto 0.24 0.00 - 0.70 Thou/uL 12/25/2024 6:12 AM EST [facility] Abs Basophils Auto 0.11 0.00 - 0.20 Thou/uL 12/25/2024 6:12 AM EST [facility] Blood Blood specimen / Unknown 12/25/2024 5:33 AM EST 12/25/2024 6:08 AM EST Kristina PETERS LAB BLOOD ORDERABLES Performing Organization Address City/[facility]/[place] [address], * Troponin I, High Sensitivity (Once) (12/24/2024 10:01 PM EST) Pathologist [facility] Troponin I, High Sensitivity 29 <34 ng/L 12/24/2024 10:51 PM EST [facility] Delta (HS Troponin I) Unable to calculate result 12/24/2024 10:51 PM EST [facility] Blood Serum specimen / Unknown 12/24/2024 10:01 PM EST 12/24/2024 10:11 PM EST Kristina PETERS [place] [address], * (ABNORMAL) POCT Glucose, Fingerstick (12/24/2024 8:23 PM EST) POC Glucose 208(H) 65 - 99 mg/dL 12/24/2024 8:30 PM EST Comment:Notified RN Blood specimen / Unknown 12/24/2024 8:23 PM EST 12/24/2024 8:30 PM EST Juwan Willingham MD POINT OF CARE TEST O RDERABLES Performing Organization Address City/[facility]/ZIP Co de Phone Number HOSPITAL LAB See Below * Troponin I, High Sensitivity (Once) (12/24/2024 6:23 PM EST) Troponin I, High Sensitivity 5 <34 ng/L 12/24/2024 7:20 PM EST [facility] Delta (HS Troponin I) Unable to calculate result 12/24/2024 7:20 PM EST [facility] Blood Serum specimen / Unknown 12/24/2024 6:23 PM EST 12/24/2024 6:25 PM EST Kristina PETERS LAB BLOOD ORDERABLES Performing Organization Address [facility] Co de Phone Number [facility] [address] [place] [address], * (ABNORMAL) POCT Glucose, Fingerstick (12/24/2024 6:15 PM EST) POC Glucose 150(H) 65 - 99 mg/dL 12/24/2024 6:23 PM EST Comment:Notified RN Blood specimen / Unknown 12/24/2024 6:15 PM EST 12/24/2024 6:23 PM EST Juwan Willingham MD POINT OF CARE TEST O RDERABLES HOSPITAL LAB See Below * ECG 12 lead (12/24/2024 4:09 PM EST) Ventricular rate 68 BPM EKG [facility] Atrial rate 68 BPM EKG [facility] P-R interval 180 ms EKG [facility] QRS duration 90 ms EKG [facility] Q-T interval 420 ms EKG [facility] QTC calculation (Bazett) 447 ms EKG [facility] P axis 34 degrees EKG [facility] R axis 10 degrees EKG [facility] T axis 41 degrees EKG [facility] 12/24/2024 4:09 PM EST Narrative EKG [facility] - 12/24/2024 4:23 PM EST Normal sinus rhythm Cannot rule out Anterior infarct , age undetermined Abnormal ECG When compared with ECG of 24-Dec-2024 13:55, No significant change was found Confirmed by MD Hays Venu ([id number]) on 12/24/2024 4:23:39 PM Procedure Note Beau Hays MD - 12/24/2024 Normal sinus rhythm Cannot rule out Anterior infarct , age undetermined Abnormal ECG When compared with ECG of 24-Dec-2024 13:55, No significant change was found Confirmed by MD Hays Venu ([id number]) on 12/24/2024 4:23:39 PM Juwan Willingham MD ECG ORDERABLES EKG [facility] * CC CORONARY ANGIO W/LV, CC KELLEN PLACEMENT, 1ST ARTERY (12/24/2024 3:56 PM EST) Anatomical Region Laterality Modality X-Ray Angiograph y Narrative 12/24/2024 4:05 PM EST Table formatting from the original result was not included. Images from the original result were not included. [facility] - Cardiac Catheterization Laboratory PATIENT DEMOGRAPHIC INFORMATION Name: Bridgett Jernigan : 1955 69 y.o. Sex: female Gender: female Procedure Date: 12/24/2024 Referring Physician: Darian Valente PCP: No primary care provider on file. Procedure(s): Procedures: ??* CORONARY ANGIO W/LV ??* KELLEN PLACEMENT, 1ST ARTERY Indication: ? Appliance Worker: Santosh Brady MD Net Web Application Developer(s): Vivek Kenny and None Anginal Classification: Typical Angina Heart Failure Classification: N/A Stress Test: Vasodilator Perfusion Scan Risk of Ischemia: High IMPRESSIONS Successful stenting of severe unstable first diagonal disease with a Synergy drug-eluting stent. Mild disease of left main, LAD proper, circumflex, and right coronary artery. RECOMMENDATIONS DAPT for ideally 12 months. Aggressive cardiovascular risk factor modification. CLINICAL HISTORY 69-year-old woman with unstable angina, abnormal stress test transferred from [facility]. ACCESS Access: Right Radial Artery Sheath(s): 6Fr [place] Sheath Hemostasis Method: TR Band DIAGNOSTIC FINDINGS Findings ?? Diagnostic ??Dominance: Right Number of lesions: 1 Left Main The vessel is large. The vessel exhibits minimal luminal irregularities. Left Anterior Descending The left anterior descending has diffuse very mild minimal irregularity. ?? The first diagonal is a medium size vessel with a 95% slightly hazy stenosis. First Diagonal Branch 1st Diag lesion is 95% stenosed. NAS flow is 3.The lesion is not complex (non high-C). Left Circumflex The vessel is moderate in size. The vessel exhibits minimal luminal irregularities. Right Coronary Artery The vessel exhibits minimal luminal irregularities. There is diffuse mild irregularity throughout the mid right coronary artery up to about 20 to 30%. ??A very small acute marginal branch supplying the RV that is about 1 mm in size has a 90% ostial stenosis. Pressures LV 85 mmHg/3 mmHg 3 mmHg AO 84 mmHg/58 mmHg 72 mmHg LV gram: Not performed INTERVENTION Intervention Findings ?? Intervention ??Number of interventions: 3 1st Diag lesion Intervention Drug-eluting stent was successfully placed. Stent was deployed by way of balloon expansion. Maximum pressure: 12 mariana. Inflation time: 8 sec. Supplies used: [id number] CORONARY STENT SYSTEM SYNERGY XD MR 2.25MM 16MM DELIVERY SYS Intervention Angioplasty ??was performed following stent deployment. Maximum pressure: 14 mariana. Inflation time: 6 sec. Multiple inflations Supplies used: [id number] CATHETER BALLOON DIL NC EMERGE MR 2.5MM 12MM 2 LUM TAPER TIP Intervention Angioplasty ??was performed following stent deployment. Maximum pressure: 18 mariana. Inflation time: 6 sec. Supplies used: [id number] CATHETER BALLOON DIL NC EMERGE MR 2.5MM 12MM 2 LUM TAPER TIP Post-Intervention Lesion Assessment The intervention was successful. The guidewire crossed the lesion. Post-intervention NAS flow is 3. Lesion had 10 mm of its length treated. The patient was therapeutically anticoagulated with intravenous bivalirudin. ??A 6 Mexican EBU 3.5 guide sat fairly well. ??The lesion was crossed with a Prowater and directly stented with a 2.25 x 16 mm Synergy drug-eluting stent back to the ostium of the diagonal. ??The stent was postdilated at high pressure with a 2.5 x 12 mm noncompliant balloon up to 16 mariana. ??Final angiography demonstrated excellent result of the stented segment with normal flow into the distal diagonal. ??The LAD flow was excellent Supplies used: [id number] CORONARY STENT SYSTEM SYNERGY XD MR 2.25MM 16MM DELIVERY SYS There is a 0% residual stenosis post intervention. Complications: None Anesthesia: The procedure was performed under moderate conscious sedation by an independent trained observer (RN) and supervised by the under signed attending MD. See meds list. Sedation Time: 44 minutes 35 seconds Estimated Blood Loss: 5 mL Verbal Orders and Supervisory Attestation: As the attending physician, I verify I was present throughout the entire procedure and provided physician orders as documented in the specialty electronic documentation system. Furthermore I directly supervised all non physicians providers who assisted me during the procedure and I accept delegation of supervisory responsibility for all post procedure patient care activity related to this patient that I request from a [facility] PA/SHINGLE INSPECTOR/fellow/staff member. Santosh Brady MD [facility] 12/24/2024 ??4:04 PM Coronary Findings Diagnostic Dominance: Right Left Main: The vessel is large. The vessel exhibits minimal luminal irregularities. Left Anterior Descending: The left anterior descending has diffuse very mild minimal irregularity. The first diagonal is a medium size vessel with a 95% slightly hazy stenosis. First Diagonal Branch: 1st Diag lesion is 95% stenosed. NAS flow is 3.The lesion is not complex (non high-C). Left Circumflex: The vessel is moderate in size. The vessel exhibits minimal luminal irregularities. Right Coronary Artery: The vessel exhibits minimal luminal irregularities. There is diffuse mild irregularity throughout the mid right coronary artery up to about 20 to 30%. A very small acute marginal branch supplying the RV that is about 1 mm in size has a 90% ostial stenosis. Intervention 1st Diag lesion: Intervention: Drug-eluting stent was successfully placed. Stent was deployed by way of balloon expansion. Maximum pressure: 12 mariana. Inflation time: 8 sec. Supplies Used: [id number] CORONARY STENT SYSTEM SYNERGY XD MR 2.25MM 16MM DELIVERY SYS Intervention: Angioplasty was performed following stent deployment. Maximum pressure: 14 mariana. Inflation time: 6 sec. Multiple inflations Supplies Used: [id number] CATHETER BALLOON DIL NC EMERGE MR 2.5MM 12MM 2 LUM TAPER TIP Intervention: Angioplasty was performed following stent deployment. Maximum pressure: 18 mariana. Inflation time: 6 sec. Supplies Used: [id number] CATHETER BALLOON DIL NC EMERGE MR 2.5MM 12MM 2 LUM TAPER TIP Post-Intervention Lesion Assessment: The intervention was successful. The guidewire crossed the lesion. Post-intervention NAS flow is 3. Lesion had 10 mm of its length treated. The patient was therapeutically anticoagulated with intravenous bivalirudin. A 6 Mexican EBU 3.5 guide sat fairly well. The lesion was crossed with a Prowater and directly stented with a 2.25 x 16 mm Synergy drug-eluting stent back to the ostium of the diagonal. The stent was postdilated at high pressure with a 2.5 x 12 mm noncompliant balloon up to 16 mariana. Final angiography demonstrated excellent result of the stented segment with normal flow into the distal diagonal. The LAD flow was excellent Supplies Used: [id number] CORONARY STENT SYSTEM SYNERGY XD MR 2.25MM 16MM DELIVERY SYS There is a 0% residual stenosis post intervention. Cardiac Protocol CAD Kristina PETERS CV CARDIAC CATH ORDERABLES * (ABNORMAL) POCT Activated Clotting Time (ACT) (12/24/2024 3:45 PM EST) [facility] Activated Clotting Time, POC 407(A) 89 - 169 seconds Blood Blood specimen / Unknown Santosh Brady MD POINT OF CARE TEST O RDERABLES * (ABNORMAL) POCT Glucose, Fingerstick (12/24/2024 3:06 PM EST) POC Glucose 135(H) 65 - 99 mg/dL 12/24/2024 3:13 PM EST Blood specimen / Unknown 12/24/2024 3:06 PM EST 12/24/2024 3:13 PM EST Juwan Willingham MD POINT OF CARE TEST O RDERABLES HOSPITAL LAB See Below * Heparin Assay (Anti Xa) (12/24/2024 2:03 PM EST) Pathologist [facility] Anti Xa 0.39 IU/mL 12/24/2024 3:42 PM EST [facility] Comment: (NOTE) Heparin Thromboembolic/Standard/Full Dose Protocol: Therapeutic Range: ? Age 18+: ? 0.30 - 0.70 IU/mL ? Age 0 - 17: ?? 0.35 - 0.70 IU/mL ? Heparin Cardiac/Low Dose Protocol: ? Therapeutic Range: ? 0.30 - 0.50 IU/mL ? Low Molecular Weight Heparin: ? Therapeutic Range: ? Age 18+: ?? 0.50 - 1.09 IU/mL for twice daily dosing (or adjusted to daily for poor renal function) ? Age 18+: ?? 1.00 - 2.00 ??IU/mL for once daily dosing ? Age 0-17: ??0.50 - 1.00 IU/mL Anticoagulant IV HEPARIN, UNFRACTIONATED 12/24/2024 2:02 PM EST [facility] Blood Plasma specimen / Unknown 12/24/2024 2:03 PM EST 12/24/2024 3:09 PM EST Juwan Willingham MD LAB BLOOD ORDERABLES Performing Organization Address [facility] de Phone Number [facility] [address] [place] [address], * Troponin I, High Sensitivity (12/24/2024 2:02 PM EST) [facility] Troponin I, High Sensitivity <3 <34 ng/L 12/24/2024 3:33 PM EST [facility] Delta (HS Troponin I) NO PREVIOUS RESULT 12/24/2024 3:33 PM EST [facility] Serum specimen / Unknown 12/24/2024 2:02 PM EST 12/24/2024 3:08 PM EST Juwan Willingham MD LAB BLOOD ORDERABLES Performing Organization Address [facility] de Phone Number [facility] [address] [place] [address], * (ABNORMAL) Complete Blood Count, WITHOUT Differential (routine) (12/24/2024 2:02 PM EST) [facility] White Blood Cell Count 6.0 4.0 - 11.0 Thou/uL 12/24/2024 3:12 PM EST [facility] Platelet Count 270 150 - 450 Thou/uL 12/24/2024 3:12 PM EST [facility] Hemoglobin 14.6 11.7 - 15.7 g/dL 12/24/2024 3:12 PM EST [facility] Hematocrit 43.4 35.0 - 47.0 % 12/24/2024 3:12 PM EST [facility] Red Blood Cell Count 4.66 4.00 - 5.40 Mil/uL 12/24/2024 3:12 PM EST [facility] MCV 93 80 - 100 fL 12/24/2024 3:12 PM EST [facility] MCH 31.3(H) 27.0 - 31.0 pg 12/24/2024 3:12 PM EST [facility] MCHC 33.6 30.0 - 36.0 g/dL 12/24/2024 3:12 PM EST [facility] RDW 12.2 11.5 - 14.5 % 12/24/2024 3:12 PM EST [facility] MPV 9.8 7.5 - 12.5 fL 12/24/2024 3:12 PM EST [facility] Blood Blood specimen / Unknown 12/24/2024 2:02 PM EST 12/24/2024 3:08 PM EST Juwan Willingham MD LAB BLOOD ORDERABLES [facility] [address] [place] [address], * (ABNORMAL) Basic Metabolic Panel (Routine) (12/24/2024 2:02 PM EST) Glucose 130(H) 74 - 106 mg/dL 12/24/2024 3:33 PM EST [facility] Comment:Fasting: <100 mg/dL, Non-Fasting: <200 mg/dL (ADA 2005) Blood Urea Nitrogen (BUN) 13 9 - 23 mg/dL 12/24/2024 3:33 PM EST [facility] Creatinine 0.8 0.6 - 1.0 mg/dL 12/24/2024 3:33 PM EST [facility] eGFR 80 >59 12/24/2024 3:33 PM EST [facility] Comment:CKD-EPI (2020) in mL /min/1.73 sq meters. Sodium 139 136 - 145 mmol/L 12/24/2024 3:33 PM EST [facility] Potassium 3.8 3.4 - 4.5 mmol/L 12/24/2024 3:33 PM EST [facility] Chloride 103 98 - 107 mmol/L 12/24/2024 3:33 PM EST [facility] CO2 27 20 - 31 mmol/L 12/24/2024 3:33 PM EST [facility] Anion Gap 9 5 - 15 12/24/2024 3:33 PM EST [facility] Calcium 10.2 8.7 - 10.5 mg/dL 12/24/2024 3:33 PM EST [facility] BUN/Creatinine Ratio 16 10.0 - 25.0 Ratio 12/24/2024 3:33 PM EST [facility] Blood (Plasma/Serum) 12/24/2024 2:02 PM EST 12/24/2024 3:08 PM EST Juwan Willingham MD LAB BLOOD ORDERABLES [facility] [address] [place] [address], * ECG 12 lead (12/24/2024 1:55 PM EST) Ventricular rate 74 BPM EKG [facility] Atrial rate 74 BPM EKG [facility] P-R interval 174 ms EKG [facility] QRS duration 90 ms EKG [facility] Q-T interval 394 ms EKG [facility] QTC calculation (Bazett) 438 ms EKG [facility] P axis 36 degrees EKG [facility] R axis 3 degrees EKG [facility] T axis 71 degrees EKG [facility] 12/24/2024 1:55 PM EST Narrative EKG [facility] - 12/24/2024 2:14 PM EST Normal sinus rhythm Nonspecific T wave abnormality Abnormal ECG No previous ECGs available Confirmed by MD Sanches Osman ([id number]) on 12/24/2024 2:14:31 PM Procedure Note Sanya Sanches MD - 12/24/2024 Normal sinus rhythm Nonspecific T wave abnormality Abnormal ECG No previous ECGs available Confirmed by MD Sanches Osman ([id number]) on 12/24/2024 2:14:31 PM Juwan Willingham MD ECG [facility]ABLES [facility] documented in this encounter Visit Diagnoses Diagnosis NSTEMI (non-ST elevated myocardial infarction) (HCC)- Primary Acute myocardial infarction, subendocardial infarction, episode of care unspecified NSTEMI (non-ST elevated myocardial infarction) (HCC) Acute myocardial infarction, subendocardial infarction, episode of care unspecified Essential hypertension Unspecified essential hypertension Type 2 diabetes mellitus without complication, with long-term current use of insulin (HCC) Mixed hyperlipidemia Fatty liver Other chronic nonalcoholic liver disease NSTEMI (non-ST elevated myocardial infarction) (HCC) Acute myocardial infarction, subendocardial infarction, episode of care unspecified documented in this encounter Admitting Diagnoses Diagnosis NSTEMI (non-ST elevated myocardial infarction) (HCC) Acute myocardial infarction, subendocardial infarction, episode of care unspecified documented in this encounter Administered Medications Inactive Administered Medications - up to 1 most recent administrations Medication Order MAR Action Action Date Dose Rate Site sodium chloride 0.9 % (NS) bolus Continuous PRN, Starting on Mon12/24/24 at 1529, Intra-Procedure (Cath) New Bag 12/24/2024 3:29 PM EST 250 mL 999 mL/hr acetaminophen (TYLENOL) tablet 650 mg 650 mg, Oral, Every 6 hours PRN, mild pain 1-3, Starting on Mon12/24/24 at 1333 Given 12/24/2024 8:21 PM EST 650 mg amLODIPine (NORVASC) tablet 10 mg 10 mg, Oral, Daily, First dose on Mon12/25/24 at 0900, Hold for SBP less than 100 mmHg. Notify provider if a dose is held. Given 12/25/2024 9:01 AM EST 10 mg aspirin enteric coated (ECOTRIN LOW STRENGTH) tablet 81 mg 81 mg, Oral, Daily, First dose on Mon12/24/24 at 1600, Do not crush, chew, or split tablet. Given 12/25/2024 9:03 AM EST 81 mg atorvastatin (LIPITOR) tablet 40 mg 40 mg, Oral, Nightly, First dose on Mon12/24/24 at 2100 Given 12/24/2024 8:19 PM EST 40 mg bivalirudin (ANGIOMAX) 250 mg in dextrose (D5W) 5 % 50 mL infusion Continuous PRN, Starting on Mon12/24/24 at 1534, Intra-Procedure (Cath) New Bag 12/24/2024 3:34 PM EST 1.75 mg/kg/hr 27.09 mL/hr bivalirudin (ANGIOMAX) 5 mg/mL IV bolus from bag via smart pump As needed, Starting on Mon12/24/24 at 1534, Intra-Procedure (Cath) Given 12/24/2024 3:34 PM EST 58.05 mg busPIRone (BUSPAR) tablet 5 mg 5 mg, Oral, 2 times daily, First dose on Mon12/24/24 at 2100 Given 12/25/2024 9:02 AM EST 5 mg clopidogrel (PLAVIX) tablet 75 mg 75 mg, Oral, Daily, First dose on Mon12/25/24 at 0900 Given 12/25/2024 9:02 AM EST 75 mg dextrose 50 % solution 12.5 g 12.5 g, Intravenous, Every 15 min PRN, low blood sugar, between 50 and 69 mg/dL, Starting on Mon12/24/24 at 1456, For patient with IV access who is NPO or unable to swallow. See Hypoglycemia Management guideline. dextrose 50 % solution 25 g 25 g, Intravenous, Every 15 min PRN, low blood sugar, less than 50 mg/dL, Starting on Mon12/24/24 at 1456, For patient with IV access who is NPO or unable to swallow. See Hypoglycemia Management guideline. docusate sodium (COLACE) capsule 100 mg 100 mg, Oral, Every 12 hours PRN, constipation, Starting on Mon12/24/24 at 1333 fentaNYL (SUBLIMAZE) 100 mcg/2 mL injection As needed, Starting on Mon12/24/24 at 1512, Intra-Procedure (Cath) Given 12/24/2024 3:36 PM EST 50 mcg glucagon (GLUCAGEN) injection 1 mg 1 mg, Intramuscular, Daily PRN, low blood sugar, for Blood Glucose LESS than 70 mg/dL and NPO and no IV access, Starting on Mon12/24/24 at 1456, Glucagon may be repeated x 1 (for a total of 2 doses per hypoglycemic event) if patient remains hypoglycemic after first dose. Do not use with hepatic disease or alcohol intoxication. See Hypoglycemia Management guideline. Reconstitute vial with 1 mL sterile water for injection. glucose (GLUTOSE 15) 40 % oral gel 37.5 g 37.5 g (1 Tube), Oral, Every 15 min PRN, low blood sugar, between 50 and 69 mg/dL, Starting on Mon12/24/24 at 1456, Juice or soda is preferred for alert patients (4 oz juice or 6 oz soda). Use glucose gel for patients with fluid restriction. See Hypoglycemia Management guideline. Each 37.5 gram tube of glucose 40 % = 15 grams of glucose. glucose (GLUTOSE 15) 40 % oral gel 75 g 75 g (2 Tube), Oral, Every 15 min PRN, low blood sugar, less than 50 mg/dL, Starting on Mon12/24/24 at 1456, Juice or soda is preferred for alert patients (8 oz juice or 12 oz soda). Use glucose gel for patients with fluid restriction. See Hypoglycemia Management guideline. Each 37.5 gram tube of glucose 40 % = 15 grams of glucose. insulin lispro (HumaLOG/ADMELOG) 100 units/mL injection 1-6 Units 1-6 Units, Subcutaneous, 3 times daily with meals, First dose on Mon12/24/24 at 1700, DO NOT HOLD IF NPO Notify provider if Blood Glucose LESS than 70 For BG 141-180 administer 1 unit For BG 181-220 administer 2 units For BG 221-260 administer 3 units For BG 261-300 administer 4 units For BG 301-340 administer 5 units For BG MORE than 340, administer 6 units AND notify provider Given 12/24/2024 6:37 PM EST 1 Units Left Arm iohexol (OMNIPAQUE) 300 mg/mL injection As needed, Starting on Mon12/24/24 at 1535, Intra-Procedure (Cath) Given 12/24/2024 3:35 PM EST 50 mL ipratropium-albuterol (DUONEB) 0.5-2.5 mg/3 mL nebulizer solution 3 mL 3 mL, Nebulization, Every 6 hours PRN, wheezing, shortness of breath, Starting on Mon12/24/24 at 1333, Albuterol expressed in base strength. Albuterol sulfate 3 mg = albuterol (base) 2.5 mg. lidocaine (XYLOCAINE) 2 % injection As needed, Starting on Mon12/24/24 at 1520, Intra-Procedure (Cath) Given 12/24/2024 3:20 PM EST 5 mL Right Radial metoPROLOL TARTRATE (LOPRESSOR) tablet 25 mg 25 mg, Oral, Every 12 hours scheduled, First dose on Mon12/24/24 at 2100, Hold for HR less than 45 bpm and/or SBP less than 90 mmHg. Notify provider if a dose is held. Given 12/25/2024 9:01 AM EST 25 mg midazolam (VERSED) 2 mg/2 mL injection As needed, Starting on Mon12/24/24 at 1512, Intra-Procedure (Cath) Given 12/24/2024 3:21 PM EST 1 mg nitroglycerin 1000 mcg/2.5 mL vial As needed, Starting on Mon12/24/24 at 1521, Intra-Procedure (Cath) Given 12/24/2024 3:41 PM EST 200 mcg ondansetron (ZOFRAN-ODT) disintegrating tablet 4 mg 4 mg, Oral, Every 6 hours PRN, nausea, vomiting, Starting on Mon12/24/24 at 1333, Using dry hands, place tablet on tongue and allow to dissolve. Swallow with saliva. prasugrel (EFFIENT) tablet As needed, Starting on Mon12/24/24 at 1557, Intra-Procedure (Cath) Given 12/24/2024 3:57 PM EST 60 mg verapamil (ISOPTIN) injection As needed, Starting on Mon12/24/24 at 1521, Intra-Procedure (Cath) Given 12/24/2024 3:21 PM EST 5 mg documented in this encounter Active and Recently Administered Medications Times are shown in EST. Scheduled Medication Order 12/23/2024 12/24/2024 12/25/2024 amLODIPine (NORVASC) tablet 10 mg 10 mg, Oral, Daily, First dose on Mon12/25/24 at 0900, Hold for SBP less than 100 mmHg. Notify provider if a dose is held. 09 (Given - Provid er: Yuki Wu RN) aspirin enteric coated (ECOTRIN LOW STRENGTH) tablet 81 mg 81 mg, Oral, Daily, First dose on Mon12/24/24 at 1600, Do not crush, chew, or split tablet. 1613 (Not Given - Provider: Oswaldo Aragon RN - Reason: Other - Comment required - Comment: taken this am) 09 (Given - Provider: Yuki Wu RN) atorvastatin (LIPITOR) tablet 40 mg 40 mg, Oral, Nightly, First dose on Mon12/24/24 at 2100 2018 (Given - Provider: Marcy Khan RN) busPIRone (BUSPAR) tablet 5 mg 5 mg, Oral, 2 times daily, First dose on Mon12/24/24 at 2100 181 (JAN Hold - Provider: Automatic Transfer Provider - Reason: Unreviewed Transfer Orders)181 (JAN Unhold - Provider: User Epic)2018 (Given - Provider: Marcy Khan RN) 09 (Given - Provider: Yuki Wu RN) clopidogrel (PLAVIX) tablet 75 mg 75 mg, Oral, Daily, First dose on Mon12/25/24 at 0900 0902 (Given - Provid er: Yuki Wu RN) diphenhydrAMINE (BENADRYL) capsule 25 mg (COMPLETED) 25 mg, Oral, Once, On Mon12/24/24 at 1530, For 1 dose 1503 (Given - Provider: Oswaldo Aragon RN) insulin lispro (HumaLOG/ADMELOG) 100 units/mL injection 1-6 Units 1-6 Units, Subcutaneous, 3 times daily with meals, First dose on Mon12/24/24 at 1700, DO NOT HOLD IF NPO Notify provider if Blood Glucose LESS than 70 For BG 141-180 administer 1 unit For BG 181-220 administer 2 units For BG 221-260 administer 3 units For BG 261-300 administer 4 units For BG 301-340 administer 5 units For BG MORE than 340, administer 6 units AND notify provider 181 (MAR Hold - Provider: Automatic Transfer Provider - Reason: Unreviewed Transfer Orders)181 (MAR Unhold - Provider: User Epic)1837 (Given - Provider: Yuki Wu, CHERI) 0749 (Not Given - Provider: Yuki Wu RN - Reason: Dose held per order parameters)1200 (Due) metoPROLOL TARTRATE (LOPRESSOR) tablet 25 mg 25 mg, Oral, Every 12 hours scheduled, First dose on Mon12/24/24 at 2100, Hold for HR less than 45 bpm and/or SBP less than 90 mmHg. Notify provider if a dose is held. 2019 (Given - Provider: Marcy Khan RN) 09 (Given - Provider: Yuki Wu RN) Continuous Medication Order 12/23/2024 12/24/2024 12/25/2024 sodium chloride 0.9% (NS) infusion (CANCELED) 100 mL/hr, Intravenous, Continuous, Starting on Mon12/24/24 at 1530 1506 (Rate/Dose Change - Provider: Oswaldo Aragon RN)1614 (Stopped - Provider: Oswaldo Aragon RN) sodium chloride 0.9% (NS) infusion (CANCELED) 5 mL/kg/hr ? 77.4 kg (387 mL/hr), Intravenous, Continuous, Starting on Mon12/24/24 at 1630, For 4 hours, Do not modify orders without contacting interventional cardiology attending and/or fellow. 1614 (Rate/Dose Change - Provider: Oswaldo Aragon RN)174 (New Bag - Provider: Lilliam Ashraf RN)2015 (Stopped - Provider: Marcy Khan RN) heparin (porcine) IV infusion 25,000 units in 500 mL 0.45% NaCl (premix) (CANCELED) 18.576 mL/hr (12 Units/kg/hr ? 77.4 kg), Intravenous, Continuous, Starting on Mon12/24/24 at 1430, HEPARIN CARDIAC/LOW DOSE PROTOCOL: Initial Infusion Dose: See dose above, MAX initial dose 1,000 units/hr (83 kg and above) Dose adjustment instructions: - Obtain a Heparin Anti-factor Xa (Anti-Xa) level 6 hours after start of infusion and 6 hours after every dose change. - Once patient is within therapeutic range for two consecutive Anti-Xa measurements, then obtain Anti-Xa daily with AM labs until infusion is discontinued. If a heparin infusion is interrupted for less than or equal to 90 minutes: ~ Restart heparin infusion at the most recent dose and draw Anti-Xa level in 6 hours. ~ No bolus required. Adjust per protocol. If a heparin infusion is interrupted for greater than 90 minutes or if heparin interruption for unknown time period: ~ Restart heparin infusion at most recent dose. ~ Draw stat Anti-Xa level (Do not adjust infusion dose based on this Anti-Xa result). ~ Notify provider for guidance regarding need for additional heparin bolus and to verify heparin infusion dose. ~ Draw Anti-Xa in 6 hours and proceed per protocol. - Document all pertinent communications with providers in the patient? s record. - Adjust infusion based on Anti-Xa result per Cardiac/Low Dose protocol table: Concentration = 50 units/mL, Indication for Anticoagulation: Acute HI 1425 (New Bag - Provider: Yuki Wu RN)1445 (Stopped - Provider: Oswaldo Aragon RN - Comment: stopped pre cardiac cath) PRN Medication Order 12/23/2024 12/24/2024 12/25/2024 sodium chloride 0.9 % (NS) bolus (COMPLETED) Continuous PRN, Starting on Mon12/24/24 at 1529, Intra-Procedure (Cath) 1529 (New Bag - Provider: Talisha Galvan RN) acetaminophen (TYLENOL) tablet 650 mg 650 mg, Oral, Every 6 hours PRN, mild pain 1-3, Starting on Mon12/24/24 at 1333 1451 (MAR Hold - Provider: Automatic Transfer Provider - Reason: Unreviewed Transfer Orders)181 (MAR Unhold - Provider: User Epic)2020 (Given - Provider: Marcy Khan RN) bivalirudin (ANGIOMAX) 250 mg in dextrose (D5W) 5 % 50 mL infusion (COMPLETED) Continuous PRN, Starting on Mon12/24/24 at 1534, Intra-Procedure (Cath) 1534 (New Bag - Provider: Talisha Galvan RN)1800 (Stopped - Provider: Lilliam Ashraf RN) bivalirudin (ANGIOMAX) 5 mg/mL IV bolus from bag via smart pump (CANCELED) As needed, Starting on Mon12/24/24 at 1534, Intra-Procedure (Cath) 1534 (Given - Provider: Talisha Galvan RN) dextrose 50 % solution 12.5 g(Linked Group 1) 12.5 g, Intravenous, Every 15 min PRN, low blood sugar, between 50 and 69 mg/dL, Starting on Mon12/24/24 at 1456, For patient with IV access who is NPO or unable to swallow. See Hypoglycemia Management guideline. 181 (MAR Hold - Provider: Automatic Transfer Provider - Reason: Unreviewed Transfer Orders)1810 (MAR Unhold - Provider: User Epic) dextrose 50 % solution 25 g(Linked Group 1) 25 g, Intravenous, Every 15 min PRN, low blood sugar, less than 50 mg/dL, Starting on Mon12/24/24 at 1456, For patient with IV access who is NPO or unable to swallow. See Hypoglycemia Management guideline. 181 (MAR Hold - Provider: Automatic Transfer Provider - Reason: Unreviewed Transfer Orders)1810 (MAR Unhold - Provider: User Epic) docusate sodium (COLACE) capsule 100 mg 100 mg, Oral, Every 12 hours PRN, constipation, Starting on Mon12/24/24 at 1333 1451 (MAR Hold - Provider: Automatic Transfer Provider - Reason: Unreviewed Transfer Orders)181 (MAR Unhold - Provider: User Epic) fentaNYL (SUBLIMAZE) 100 mcg/2 mL injection (CANCELED) As needed, Starting on Mon12/24/24 at 1512, Intra-Procedure (Cath) 1512 (Given - Provider: Talisha Galvan RN)1514 (Given - Provider: Talisha Galvan RN)1522 (Given - Provider: Talisha Galvan RN)1536 (Given - Provider: Talisha Galvan RN) glucagon (GLUCAGEN) injection 1 mg(Linked Group 1) 1 mg, Intramuscular, Daily PRN, low blood sugar, for Blood Glucose LESS than 70 mg/dL and NPO and no IV access, Starting on Mon12/24/24 at 1456, Glucagon may be repeated x 1 (for a total of 2 doses per hypoglycemic event) if patient remains hypoglycemic after first dose. Do not use with hepatic disease or alcohol intoxication. See Hypoglycemia Management guideline. Reconstitute vial with 1 mL sterile water for injection. 1810 (MAR Hold - Provider: Automatic Transfer Provider - Reason: Unreviewed Transfer Orders)1810 (BANNER Unhold - Provider: User Epic) glucose (GLUTOSE 15) 40 % oral gel 37.5 g(Linked Group 1) 37.5 g (1 Tube), Oral, Every 15 min PRN, low blood sugar, between 50 and 69 mg/dL, Starting on Mon12/24/24 at 1456, Juice or soda is preferred for alert patients (4 oz juice or 6 oz soda). Use glucose gel for patients with fluid restriction. See Hypoglycemia Management guideline. Each 37.5 gram tube of glucose 40 % = 15 grams of glucose. 1810 (MAR Hold - Provider: Automatic Transfer Provider - Reason: Unreviewed Transfer Orders)1810 (BANNER Unhold - Provider: User Epic) glucose (GLUTOSE 15) 40 % oral gel 75 g(Linked Group 1) 75 g (2 Tube), Oral, Every 15 min PRN, low blood sugar, less than 50 mg/dL, Starting on Mon12/24/24 at 1456, Juice or soda is preferred for alert patients (8 oz juice or 12 oz soda). Use glucose gel for patients with fluid restriction. See Hypoglycemia Management guideline. Each 37.5 gram tube of glucose 40 % = 15 grams of glucose. 1810 (MAR Hold - Provider: Automatic Transfer Provider - Reason: Unreviewed Transfer Orders)1810 (BANNER Unhold - Provider: User Epic) iohexol (OMNIPAQUE) 300 mg/mL injection (CANCELED) As needed, Starting on Mon12/24/24 at 1535, Intra-Procedure (Cath) 1535 (Given - Provider: Talisha Galvan RN) ipratropium-albuterol (DUONEB) 0.5-2.5 mg/3 mL nebulizer solution 3 mL 3 mL, Nebulization, Every 6 hours PRN, wheezing, shortness of breath, Starting on Mon12/24/24 at 1333, Albuterol expressed in base strength. Albuterol sulfate 3 mg = albuterol (base) 2.5 mg. 1451 (MAR Hold - Provider: Automatic Transfer Provider - Reason: Unreviewed Transfer Orders)1811 (MAR Unhold - Provider: User Epic) lidocaine (XYLOCAINE) 2 % injection (CANCELED) As needed, Starting on Mon12/24/24 at 1520, Intra-Procedure (Cath) 1520 (Given - Provider: Santosh Brady MD) midazolam (VERSED) 2 mg/2 mL injection (CANCELED) As needed, Starting on Mon12/24/24 at 1512, Intra-Procedure (Cath) 1512 (Given - Provider: Talisha Galvan RN)1514 (Given - Provider: Talisha Galvan RN)1515 (Given - Provider: Talisha Galvan RN)1521 (Given - Provider: Talisha Galvan RN) naloxone (NARCAN) 0.4 mg/mL injection 0.4 mg 0.4 mg, Intravenous, Every 5 min PRN, opioid reversal, respiratory depression, Starting on Mon12/24/24 at 1613, If respiratory rate is less than 8 breaths/minute or patient is difficult to arouse. Stop all narcotics and contact provider. nitroglycerin 1000 mcg/2.5 mL vial (CANCELED) As needed, Starting on Mon12/24/24 at 1521, Intra-Procedure (Cath) 1521 (Given - Provider: Santosh Brady MD)1541 (Given - Provider: Santosh Brady MD) ondansetron (ZOFRAN) injection 4 mg 4 mg, Intravenous, Every 6 hours PRN, nausea, vomiting, Starting on Mon12/24/24 at 1613 ondansetron (ZOFRAN-ODT) disintegrating tablet 4 mg 4 mg, Oral, Every 6 hours PRN, nausea, vomiting, Starting on Mon12/24/24 at 1333, Using dry hands, place tablet on tongue and allow to dissolve. Swallow with saliva. 1451 (JAN Hold - Provider: Automatic Transfer Provider - Reason: Unreviewed Transfer Orders)1811 (JAN Unhold - Provider: User Epic) perflutren lipid microsphere (DEFINITY) 1.3 mL in sodium chloride (NS) 0.9 % 10 mL (COMPLETED) 0.5-8 mL, Intravenous, Once in imaging, other, Starting on Mon12/25/24 at 0838, For 1 dose, Document total dose administered per policy 0842 (Given - Provid er: Clarisa Amado) prasugrel (EFFIENT) tablet (CANCELED) As needed, Starting on Mon12/24/24 at 1557, Intra-Procedure (Cath) 1557 (Given - Provider: Talisha Galvan RN) verapamil (ISOPTIN) injection (CANCELED) As needed, Starting on Mon12/24/24 at 1521, Intra-Procedure (Cath) 1521 (Given - Provider: Santosh Brady MD) Linked Groups Order Group 1: glucose (GLUTOSE 15) 40 % oral gel 37.5 gJump to med 37.5 g (1 Tube), Oral, Every 15 min PRN, low blood sugar, between 50 and 69 mg/dL, Starting on Mon12/24/24 at 1456, Juice or soda is preferred for alert patients (4 oz juice or 6 oz soda). Use glucose gel for patients with fluid restriction. See Hypoglycemia Management guideline. Each 37.5 gram tube of glucose 40 % = 15 grams of glucose. Or glucose (GLUTOSE 15) 40 % oral gel 75 gJump to med 75 g (2 Tube), Oral, Every 15 min PRN, low blood sugar, less than 50 mg/dL, Starting on Mon12/24/24 at 1456, Juice or soda is preferred for alert patients (8 oz juice or 12 oz soda). Use glucose gel for patients with fluid restriction. See Hypoglycemia Management guideline. Each 37.5 gram tube of glucose 40 % = 15 grams of glucose. Or dextrose 50 % solution 12.5 gJump to med 12.5 g, Intravenous, Every 15 min PRN, low blood sugar, between 50 and 69 mg/dL, Starting on Mon12/24/24 at 1456, For patient with IV access who is NPO or unable to swallow. See Hypoglycemia Management guideline. Or dextrose 50 % solution 25 gJump to med 25 g, Intravenous, Every 15 min PRN, low blood sugar, less than 50 mg/dL, Starting on Mon12/24/24 at 1456, For patient with IV access who is NPO or unable to swallow. See Hypoglycemia Management guideline. Or glucagon (GLUCAGEN) injection 1 mgJump to med 1 mg, Intramuscular, Daily PRN, low blood sugar, for Blood Glucose LESS than 70 mg/dL and NPO and no IV access, Starting on Mon12/24/24 at 1456, Glucagon may be repeated x 1 (for a total of 2 doses per hypoglycemic event) if patient remains hypoglycemic after first dose. Do not use with hepatic disease or alcohol intoxication. See Hypoglycemia Management guideline. Reconstitute vial with 1 mL sterile water for injection. documented in this encounter Care Teams Pharmacist Apprentice Relationship Specialty Start Date End Date Ngoc Ordonez APRN [address] [place] [address] [phone] PCP - General Family Medicine 12/24/24 documented as of this encounter
--- OUTSIDE RECORDS SUMMARY | 2025-01-08 13:58 | XMS_ITS | Encounter Summary ---
Author Organization [facility] Address [address] [place] [id number] Care Team Providers Care Clay Press Operator Name Role Phone Ngoc Ordonez APRN Primary Care Provider + Beau Hays MD Unavailable [phone] Reason for Visit * Reason Comments Hospital Follow-up Hospital follow up Encounter Details Date Type Department Care Team (Late st Contact Info) Description 01/07/2025 10:40 AM EST Office Visit [facility] [place] [address] [phone] Beau Hays MD [address] [place] [id number] Hospital discharge follow-up (Primary Dx); Chest pain, unspecified type Discharge Disposition: Home or Self Care Social History Tobacco Use Types Packs/Day Years Used Date Smoking Tobacco: Never Assessed [facility] Utilities Answer Date Recorded In the past 12 months has [employer], oil, or water [employer] threatened to shut off services in your [...] any time in the past 12 m [facility], were you homeless or living in a group home (including now)? No 12/25/2024 Sex and Gender Information Value Date Recorded Sex Assigned at Female 12/24/2024 1:09 PM EST Gender Identity Female 12/24/2024 1:09 PM EST Sexual Orientation Heterosexual (straight) 12/24 1:09 PM EST documented as of this encounter Last Filed Vital Signs Vital Sign Reading Time Taken Comments Blood Pressure 160/80 01/07/2025 10:27 AM EST Pulse 71 01/07/2025 10:27 AM EST Temperature - - Respiratory Rate - - Oxygen Saturation 98% 01/07/2025 10: 27 AM EST Inhaled Oxygen Concentration - - Weight 80.6 kg (177 lb 11.1 oz) 025 10:27 AM EST Height 152.4 cm (5') 01/07/2025 10:27 AM EST Body Mass Index 34.7 01/07/2025 10:27 AM EST documented in this encounter Progress Notes * Beau Hays MD - 01/07/2025 11:01 AM EST Images from the original note were not included. Cardiology Return Office Visit Visit Date: 01/07/2025 Heidi Hazel 1955 (69 y.o. female) Encounter Provider: Beau Hays MD PCP: Ngoc Ordonez, YARELIS 69F Patient was recently at [facility] with NSTEMI and is s/p KELLEN of first diagonal. All available records from recent hospital visit (including lab results, notes, imaging studies/reports) have been reviewed by me. No past medical history on file. Past Surgical History: Procedure Laterality Date CC CORONARY ANGIO W/LV N/A 12/24/2024 Procedure: CORONARY ANGIO W/LV; Surgeon: Santosh Brady MD; [facility]; Service: Cardiovascular; Laterality: N/A; CC KELLEN PLACEMENT, 1ST ARTERY N/A 12/24/2024 Procedure: KELLEN PLACEMENT, 1ST ARTERY; Surgeon: Santosh Brady MD; Location[facility]; Service: Cardiovascular; Laterality: N/A; No family history on file. Medications: Current Outpatient Medications Medication Sig Dispense Refill amLODIPine (NORVASC) 10 MG tablet Take 1 tablet (10 mg total) by mouth daily. aspirin enteric coated (ECOTRIN LOW STRENGTH) 81 MG EC tablet Take 1 tablet (81 mg total) by mouth daily. 30 tablet 2 atorvastatin (LIPITOR) 40 MG tablet Take 1 tablet (40 mg total) by mouth nightly. 90 tablet 3 busPIRone (BUSPAR) 5 MG tablet Take 1 tablet (5 mg total) by mouth 2 (two) times a day. clopidogrel (PLAVIX) 75 MG tablet Take 1 tablet (75 mg total) by mouth daily. 30 tablet 2 Cyanocobalamin (VITAMIN B 12 PO) Take 1,000 [...] (100 mg total) by mouth daily. metFORMIN (GLUCOPHAGE) 1000 MG tablet Take 1 tablet (1,000 mg total) by mouth 2 (two) times a day with meals. metoPROLOL SUCCINATE (TOPROL-XL) 25 MG 24 hr tablet Take 1 tablet (25 mg total) by mouth daily. 30 tablet 0 Multiple Vitamins-Minerals (multivitamin with minerals) tablet Take 1 tablet by mouth daily. omega-3 fatty acids (FISH OIL) 1000 MG Cap capsule Take 1 capsule (1,000 mg total) by mouth daily. PANTOprazole (PROTONIX) 40 MG EC tablet Take 1 tablet (40 mg total) by mouth every morning before breakfast. Review of Systems Constitutional: Negative for activity change, chills and fever. HENT: Negative for congestion, sinus pressure, sneezing and voice change. Respiratory: Negative for apnea, cough and choking. Cardiovascular: Negative. Gastrointestinal: Negative. Endocrine: Negative. Genitourinary: Negative. Musculoskeletal: Negative. Skin: Negative. Neurological: Negative for dizziness, syncope and light-headedness. Vitals: BP (!) 160/80 (BP Location: Right arm, Patient Position: Sitting, Cuff Size: Medium (Standard)) Pulse 71 Ht 1.524 m (5') Wt 80.6 kg (177 lb 11.1 oz) SpO2 98% BMI 34.70 kg/m?? Physical Exam Vitals reviewed. Constitutional: Appearance: Normal appearance. HENT: Head: Normocephalic and atraumatic. Neck: Vascular: No carotid bruit. Cardiovascular: Rate and Rhythm: Normal rate and regular rhythm. Pulses: Normal pulses. Heart sounds: Normal heart sounds. No murmur heard. No friction rub. No gallop. Pulmonary: Effort: Pulmonary effort is normal. Breath sounds: Normal breath sounds. Abdominal: General: Bowel sounds are normal. Palpations: Abdomen is soft. Musculoskeletal: General: No deformity. Left lower leg: No edema. Lymphadenopathy: Cervical: No cervical adenopathy. Skin: General: Skin is warm and dry. Neurological: General: No focal deficit present. Mental Status: She is alert. Mental status is at baseline. Testing/Imaging Reviewed Labs: Lipids Cholesterol, Total Date Value Ref Range Status 12/25/2024 168 <200 mg/dL Final Cholesterol, HDL Date Value Ref Range Status 12/25/2024 43 (L) >60 mg/dL Final No results found for: LDL , LDLCHOL , LDLCHOLES , LDLDIR Triglycerides Date Value Ref Range Status 12/25/2024 135 <150 mg/dL Final Imaging: Electrocardiogram: See Scanned Document Assessment & Plan 69F Patient was recently at [facility] with NSTEMI and is s/p KELLEN of first diagonal. All available records from recent hospital visit (including lab results, notes, imaging studies/reports) have been reviewed by me. 1) CAD: NSTEMI and is s/p KELLEN of first diagonal. 12/2024. - Continue ASA/Statin/BB 2) HTN: White Coat Hypertension - patient states blood pressures are well- controlled at home. I have asked the patient to continue monitor BPs at home and record in a log. > 40 minutes spent with extensive chart review following recent hospital visit (including medical notes, testing, and laboratory data) as well as discussing management plans and recommendations with patient. All questions and concerns were addressed. Beau Hays MD [facility] [place] 01/07/25 11:01 AM documented in this encounter Plan of Treatment Not on file documented as of this encounter Procedures Procedure Name Priority Date/Time Associated Diagnosis Comments ECG 12-LEAD Routine 01/07/2025 10:30 AM EST Hospital discharge follow-up documented in this encounter Results * ECG 12 lead (01/07/2025 10:30 AM EST) Ventricular rate 71 BPM EKG [facility] Atrial rate 71 BPM EKG [facility] P-R interval 186 ms EKG [facility] QRS duration 90 ms EKG [facility] Q-T interval 362 ms EKG [facility] QTC calculation (Bazett) 393 ms EKG [facility] P axis 43 degrees EKG [facility] R axis 10 degrees EKG [facility] T axis 46 degrees EKG [facility] 01/07/2025 10:3 0 AM EST Narrative EKG [facility] - 01/07/2025 2:06 PM EST Normal sinus rhythm Possible Anterior infarct (cited on or before 24-Dec-2024) Abnormal ECG When compared with ECG of 24-Dec-2024 16:09, QT has shortened Confirmed by MD Sukhi, Gem ([id number]) on 01/07/2025 2:06:51 PM Procedure Note Gem Isbell MD - 01/07/2025 Normal sinus rhythm Possible Anterior infarct (cited on or before 24-Dec-2024) Abnormal ECG When compared with ECG of 24-Dec-2024 16:09, QT has shortened Confirmed by MD Isbell Anja ([id number]) on 01/07/2025 2:06:51 PM Gem Isbell MD ECG ORDERABLES EKG [facility] documented in this encounter Visit Diagnoses Diagnosis Hospital discharge follow-up- Primary Other follow-up examination Chest pain, unspecified type documented in this encounter Care Teams Clay Press Operator Relationship Specialty Start Date End Date Ngoc Ordonez APRN [address] [place] [phone] PCP - General Family Medicine 12/24/24 Beau Hays MD [facility] [place] [address] Primary Internal Consultant Cardiovascular Disease 01/07/25 documented as of this encounter
--- OUTSIDE RECORDS SUMMARY | 2025-01-08 13:58 | XMS_ITS | Encounter Summary ---
Author Organization [facility] Address [address] [place] [address] Care Team Providers Care Car Storer Name Role Phone Ngoc Ordonez APRN Primary Care Provider + Encounter Details Date Type Department Care Team (Late st Contact Info) Description 12/24/2024 10:50 AM EST Ancillary Procedure [facility] Radiology [address] [place] [address] Provider, File Room Social History Tobacco Use Types Packs/Day Years Used Date Smoking Tobacco: Never Assessed [facility] Utilities Answer Date Recorded In the past 12 months has th e electric, gas, oil, or water [employer] threatened to shut off services in your [...] any time in the past 12 m [facility], were you homeless or living in a fci (including now)? No 12/25/2024 Sex and Gender Information Value Date Recorded Sex Assigned at Female 12/24/2024 1:09 PM EST Gender Identity Female 12/24/2024 1:09 PM EST Sexual Orientation Heterosexual (straight) 12/24 1:09 PM EST documented as of this encounter Plan of Treatment Not on file documented as of this encounter Procedures Procedure Name Priority Date/Time Associated Diagnosis Comments CR CHEST ARCHIVE FOR REFERENCE ONLY Routine 12/24/2024 10:48 AM EST documented in this encounter Results * CR Chest Archive for Reference only (12/24/2024 10:48 AM EST) Narrative [facility] - 12/24/2024 10:48 AM EST This study has been auto finalized and does not contain a result. File Room Provider IMG DIGITIZE FILMS Performing Organization Address City/State/[facility] Co de Phone Number [facility] [phone] documented in this encounter Visit Diagnoses Not on filedocumented in this encounter Care Teams Car Storer Relationship Specialty Start Date End Date Ngoc Ordonez APRN [address] [place] [phone] PCP - General Family Medicine 12/24/24 documented as of this encounter
--- OUTSIDE RECORDS SUMMARY | 2025-01-08 13:58 | XMS_ITS | Encounter Summary ---
Author Organization Formerly [facility] Address [address] [place] [address] Care Team Providers Care Cardroom Manager Name Role Phone Ngoc Ordonez APRN Primary Care Provider + Beau Hays MD Unavailable [phone] Encounter Details Date Type Department Care Team (Late st Contact Info) Description 01/07/2025 Orders Only [facility] [place] [address] [phone] Yaima De Paz APRN [address] [place], [place] [id number] Chest pain, unspecified type (Primary Dx); NSTEMI (non-ST elevated myocardial infarction) (HCC) Social History Tobacco Use Types Packs/Day Years Used Date Smoking Tobacco: Never Assessed [facility] Utilities Answer Date Recorded In the past 12 months has [employer], gas, oil, or water [employer] threatened to shut off services in your [...] any time in the past 12 m [facility], were you homeless or living in a skilled nursing (including now)? No 12/25/2024 Sex and Gender Information Value Date Recorded Sex Assigned at Female 12/24/2024 1:09 PM EST Gender Identity Female 12/24/2024 1:09 PM EST Sexual Orientation Heterosexual (straight) 12/24 1:09 PM EST documented as of this encounter Plan of Treatment Scheduled Orders Name Type Priority Associated Diagnoses Orde r Schedule Lipoprotein (a) Lab Routine NSTEMI (non-ST elevated myocardial infarction) (HCC) Ordered: 01/07/2025 documented as of this encounter Visit Diagnoses Diagnosis Chest pain, unspecified type- Primary NSTEMI (non-ST elevated myocardial infarction) (HCC) Acute myocardial infarction, subendocardial infarction, episode of care unspecified documented in this encounter Care Teams Cardroom Manager Relationship Specialty Start Date End Date Ngoc Ordonez APRN [address] [place] [address] [phone] PCP - General Family Medicine 12/24/24 Beau Hays MD [address] [place], [place] [id number] Primary [employer] Cardiovascular Disease 01/07/25 documented as of this encounter
--- OUTSIDE RECORDS SUMMARY | 2025-01-08 13:58 | XMS_ITS | Clinical Summary ---
Author Organization [facility] Address [address] [place] [address] Care Team Providers Care Group Social Worker Name Role Phone Ngoc Ordonez APRN Primary Care Provider + Beau Hays MD Unavailable [phone] Allergies Active Allergy Reactions Criticality Noted Date Comments Adhesives/Tape Itching Low 12/24/2024 Amoxicillin Unknown/Patient and Family Unable to Define Medium 12/24/2024 Genital swelling Codeine GI Intolerance/Nausea/Vomiti ng Low 12/24/2024 Gentamicin GI Intolerance/Nausea/Vomiti ng Low 12/24/2024 Lisinopril Kidney injury Medium 12/24/2024 Penicillin V Unknown/Patient and Family Unable to Define Medium 12/24/2024 Sulfa Antibiotics Hives Medium 12/24/2024 Medications Medication Sig Dispensed Refills Start Date End Date Status amLODIPine (NORVASC) 10 MG tablet Take 1 tablet (10 mg total) by mouth daily. 10/08/2024 Active losartan (COZAAR) 100 MG tablet Take 1 tablet (100 mg total) by mouth daily. 10/01/2024 Active metFORMIN (GLUCOPHAGE) 1000 MG tablet Take 1 tablet (1,000 mg total) by mouth 2 (two) times a day with meals. 12/11/2024 Active PANTOprazole (PROTONIX) 40 MG EC tablet Take 1 tablet (40 mg total) by mouth every morning before breakfast. 10/15/2024 Active ferrous sulfate 325 (65 FE) MG EC tablet Take 1 tablet (325 mg total) by mouth daily. Take 2 hours before or 4 hours after acid reducers. Active Cyanocobalamin (VITAMIN B 12 PO) Take 1,000 mcg by mouth daily. Active loratadine (CLARITIN REDITABS) 10 MG dissolvable tablet Take 1 tablet (10 mg total) by mouth daily. Active Multiple Vitamins-Minerals (multivitamin with minerals) tablet Take 1 tablet by mouth daily. Active busPIRone (BUSPAR) 5 MG tablet Take 1 tablet (5 mg total) by mouth 2 (two) times a day. Active omega-3 fatty acids (FISH OIL) 1000 MG Cap capsule Take 1 capsule (1,000 mg total) by mouth daily. Active aspirin enteric coated (ECOTRIN LOW STRENGTH) 81 MG EC tabletIndications: NSTEMI (non-ST elevated myocardial infarction) (HCC) Take 1 tablet (81 mg total) by mouth daily. 30 tablet 2 12/26/2024 03/26/2025 Active atorvastatin (LIPITOR) 40 MG tabletIndications: NSTEMI (non-ST elevated myocardial infarction) (HCC) Take 1 tablet (40 mg total) by mouth nightly. 90 tablet 3 12/25/2024 12/20/2025 Active clopidogrel (PLAVIX) 75 MG tabletIndications: NSTEMI (non-ST elevated myocardial infarction) (HCC) Take 1 tablet (75 mg total) by mouth daily. 30 tablet 2 12/26/2024 03/26/2025 Active metoPROLOL SUCCINATE (TOPROL-XL) 25 MG 24 hr tabletIndications: NSTEMI (non-ST elevated myocardial infarction) (HCC) Take 1 tablet (25 mg total) by mouth daily. 30 tablet 12/25/2024 01/24/2025 Active cloNIDine (CATAPRES) 0.1 MG tablet Take 1 tablet (0.1 mg total) by mouth 2 (two) times a day. 10/08/2024 12/25/2024 Discontinued (Stop Taking at Discharge) doxycycline (DORYX) 100 MG EC tablet Take 1 tablet (100 mg total) by mouth 2 (two) times a day. 12/25/2024 Discontinued (Med List Clean-up/Old Med - No E-Cancel/No AVS) Active Problems Problem Noted Date Diagnosed Date NSTEMI (non-ST elevated myocardial infarction) 0 12/24/2024 Essential hypertension 12/24/2024 Type 2 diabetes mellitus wit hout complication, with long-term current use of insulin 12/24/2024 Mixed hyperlipidemia 12/24/2024 Fatty liver 12/24/2024 Encounters Date Type Department Care Team Description 01/07/2025 10:40 AM EST Office Visit [facility] [address] [place] [phone] Beau Hays MD Hospital discharge follow-up (Primary Dx); Chest pain, unspecified type Discharge Disposition: Home or Self Care 01/07/2025 Orders Only [facility] [address] [phone] Yaima De aPz APRN Chest pain, unspecified type (Primary Dx); NSTEMI (non-ST elevated myocardial infarction) (HCC) 01/07/2025 Travel 12/24/2024 3:00 PM EST - 12/24/2024 3:58 PM EST Surgery [facility] [place] [facility] - Cardiac Catheterization Laboratory [address] [place] [phone] Santosh Brady MD CORONARY ANGIO W/LV 12/24/2024 1:26 PM EST - 12/25/2024 12:36 PM EST Hospital Encounter [address] [place] [phone] Juwan Willingham MD Haider, Asim, MD NSTEMI (non-ST elevated myocardial infarction) (HCC) (Primary Dx) Discharge Disposition: Home or Self Care 12/24/2024 10:50 AM EST Ancillary Procedure [facility] [address] [place] [phone] Provider, File Room 12/23/2024 Orders Only [facility] [address] [place] [phone] Provider, File Room from Last 3 Months Social History Tobacco Use Types Packs/Day Years Used Date Smoking Tobacco: Never Assessed [facility] Utilities Answer Date Recorded In the past 12 months has [employer], gas, oil, or water [employer] threatened to shut off services in your [...] any time in the past 12 m [facility], were you homeless or living in a senior care (including now)? No 12/25/2024 Sex and Gender Information Value Date Recorded Sex Assigned at Female 12/24/2024 1:09 PM EST Gender Identity Female 12/24/2024 1:09 PM EST Sexual Orientation Heterosexual (straight) 12/24 1:09 PM EST Last Filed Vital Signs Vital Sign Reading Time Taken Comments Blood Pressure 160/80 01/07/2025 10:27 AM EST Pulse 71 01/07/2025 10:27 AM EST Temperature 36.8 ??C (98.3 ??F) 12/25/2024 8:00 AM ES T Respiratory Rate 18 12/25/2024 8:00 AM EST Oxygen Saturation 98% 01/07/2025 10: 27 AM EST Inhaled Oxygen Concentration - - Weight 80.6 kg (177 lb 11.1 oz) 025 10:27 AM EST Height 152.4 cm (5') 01/07/2025 10:27 AM EST Body Mass Index 34.7 01/07/2025 10:27 AM EST Plan of Treatment Health Maintenance Due Date Last Done Comments Hepatitis C Virus Screening 1955 Ophthalmology Exam 1965 Microalbumin/Creatinine Ratio Urine 1973 DTaP/Tdap/Td Vaccines (1 - Tdap) 1974 Pneumococcal Vaccines 50+ (1 of 2 - PCV) 1974 Mammogram 1995 Colonoscopy 2000 Zoster (Shingles) Vaccine (1 of 2) 2005 DXA Bone Density (Females,Ages 65 and older) 2020 Influenza Vaccine 06/06/2024 COVID-19 Vaccine ( - season) 2024 Hemoglobin A1C 06/24/2025 12/25/2024 Creatinine with GFR 12/25/2025 12/25/2024, Foot Exam 12/25/2025 12/25/2024, 12/07, 12/24/2024, Additional history exists Lipid Panel 12/25/2025 12/25/2024 RSV Vaccine 60 years and older and Patients (1 - 1-dose 75+ series) 2030 Hepatitis B Vaccines Aged Out No long er eligible based on patient's age to complete this topic Medical Devices Implanted Type Area Ear Mold Laboratory Technician Device Identifier Shelf Expiration Date Model / Serial / Lot [id number] Coronary Stent System Synergy Xd Mr 2.25mm 16mm Delivery s - [id number] Implanted:Qty : 1 on 12/24/2024 by Santosh Brady MD at [facility] Stent N/A: Coronary [employer] [id number] 02/20/2026 [id number] / / [id number] Procedures Procedure Name Priority Date/Time Associated Diagnosis Comments ECG 12-LEAD Routine 01/07/2025 10:30 AM EST Hospital discharge follow-up ECHOCARDIOGRAM (TTE) COMPREHENSIVE (CONTRAST PRN) Routine 12/25/2024 8:38 AM EST HEMOGLOBIN A1C WITH ESTIMATED AVERAGE GLUCOSE Routine 12/25/2024 8:00 AM EST POCT GLUCOSE, FINGERSTICK (POCGLU) (NO CHARGE) Routine 12/25/2024 7:39 AM EST LIPID PANEL Routine 12/25/2024 5:33 AM EST PROTIME-INR Routine 12/25/2024 5:33 AM EST PARTIAL THROMBOPLASTIN TIME (PTT) Routine 12/25/2024 5:33 AM EST COMPREHENSIVE METABOLIC PANEL Routine 12/25/2024 5:33 AM EST COMPLETE BLOOD COUNT, WITH DIFFERENTIAL Routine 12/25/2024 5:33 AM EST TROPONIN I, [...] ECG 12-LEAD Routine 12/24/2024 1:55 PM EST CR CHEST ARCHIVE FOR REFERENCE ONLY Routine 12/24/2024 10:48 AM EST from Last 3 Months Results * ECG 12 lead (01/07/2025 10:30 AM EST) Only the most recent of3 resultswithin the time period is included. Ventricular rate 71 BPM EKG [facility] Atrial rate 71 BPM EKG [facility] P-R interval 186 ms EKG [facility] QRS duration 90 ms EKG [facility] Q-T interval 362 ms EKG [facility] QTC calculation (Bazett) 393 ms EKG [facility] P axis 43 degrees EKG [facility] R axis 10 degrees EKG [facility] T axis 46 degrees EKG [facility] 01/07/2025 10:3 0 AM EST Narrative EKG [facility] - 01/07/2025 2:06 PM EST Normal sinus rhythm Possible Anterior infarct (cited on or before 24-Dec-2024) Abnormal ECG When compared with ECG of 24-Dec-2024 16:09, QT has shortened Confirmed by MD Isbell Anja ([id number]) on 01/07/2025 2:06:51 PM Procedure Note Gem Isbell MD - 01/07/2025 Normal sinus rhythm Possible Anterior infarct (cited on or before 24-Dec-2024) Abnormal ECG When compared with ECG of 24-Dec-2024 16:09, QT has shortened Confirmed by MD Sukhi, Gem ([id number]) on 01/07/2025 2:06:51 PM Gem Isbell MD ECG ORDERABLES EKG [facility] * ECHOCARDIOGRAM COMPREHENSIVE WITH CONTRAST (12/25/2024 8:38 [...] A1C 6.5(H) <5.7 % 12/25/2024 5:38 PM EST [facility] Comment: A1c% ? Interpretation 5.7 - 6.0 ?Increase risk of diabetes 6.1 - 6.4 ?Higher risk of diabetes > or = 6.5 ?? Consistent with diabetes Diabetes Care, 33(Supp 1):S1-S61, 2010 Estimated Average Glucose 140 mg/dL 12/25/2024 5:38 PM EST [facility] Blood Blood specimen / Unknown 12/25/2024 8:00 AM EST 12/25/2024 8:12 AM EST Keenan Arreguin MD LAB BLOOD ORDERABLES Performing Organization Address [facility]/[place] [address], [place] [address] * (ABNORMAL) POCT Glucose, Fingerstick (12/25/2024 7:39 AM EST) Only the most recent of4 resultswithin the time period is included. Pathologist [facility] POC Glucose 136(H) 65 - 99 mg/dL 12/25/2024 7:46 AM EST Comment:Notified RN Blood specimen / Unknown 12/25/2024 7:39 AM EST 12/25/2024 7:46 AM EST Keenan Arreguin MD POINT OF CARE TEST O RDERABLES HOSPITAL LAB See Below * (ABNORMAL) Complete Blood Count, with Differential (12/25/2024 5:33 AM EST) White Blood Cell Count 5.1 4.0 - 11.0 Thou/uL 12/25/2024 6:12 AM EST [facility] Platelet Count 245 150 - 450 Thou/uL 12/25/2024 6:12 AM EST [facility] Hemoglobin 14.2 11.7 - 15.7 g/dL 12/25/2024 6:12 AM [facility] Hematocrit 42.9 35.0 - 47.0 % 12/25/2024 6:12 AM [facility] Red Blood Cell Count 4.57 4.00 - 5.40 Mil/uL 12/25/2024 6:12 AM [facility] MCV 94 80 - 100 fL 12/25/2024 6:12 AM [facility] MCH 31.1(H) 27.0 - 31.0 pg 12/25/2024 6:12 AM [facility] MCHC 33.1 30.0 - 36.0 g/dL 12/25/2024 6:12 AM [facility] RDW 12.2 11.5 - 14.5 % 12/25/2024 6:12 AM [facility] MPV 9.4 7.5 - 12.5 fL 12/25/2024 6:12 AM [facility] Neutrophils Auto 53.0 % 12/25/19 6:12 AM [facility] Immature Granulocytes 0.2 % 12/25/2024 6:12 AM [facility] Lymphocytes Auto 29.1 % 12/25/19 6:12 AM [facility] Monocytes Auto 10.8 % 12/25/2024 6:12 AM [facility] Eosinophils Auto 4.7 % 12/25/19 6:12 AM [facility] Basophils Auto 2.2 % 12/25/2024 6:12 AM [facility] Abs Neutrophils Auto 2.69 2.00 - 7.50 Thou/uL 12/25/2024 6:12 AM [facility] Abs Immature Granulocytes 0.01 0.00 - 0.10 Thou/uL 12/25/2024 6:12 AM [facility] Abs Lymphocytes Auto 1.48(L) 1.50 - 4.50 Thou/uL 12/25/2024 6:12 AM [facility] Abs Monocytes Auto 0.55 0.20 - 1.50 Thou/uL 12/25/2024 6:12 AM EST [facility] Abs Eosinophils Auto 0.24 0.00 - 0.70 Thou/uL 12/25/2024 6:12 AM EST [facility] Abs Basophils Auto 0.11 0.00 - 0.20 Thou/uL 12/25/2024 6:12 AM EST [facility] Blood Blood specimen / Unknown 12/25/2024 5:33 AM EST 12/25/2024 6:08 AM EST Kristina PETERS [place] [address], * Partial Thromboplastin Time (PTT) (12/25/2024 5:33 AM EST) Anticoagulant IV HEPARIN, UNFRACTIONATED 12/24/2024 11:01 PM EST [facility] Partial Thromboplastin Time (PTT) 33 26 - 37 seconds 12/25/2024 6:19 AM EST [facility] Blood Plasma specimen / Unknown 12/25/2024 5:33 AM EST 12/25/2024 6:08 AM EST Easton Aguirre PA-[place] [address], * Protime-INR (12/25/2024 5:33 AM EST) Anticoagulant IV HEPARIN, UNFRACTIONATED 12/24/2024 11:01 PM EST [facility] Prothrombin Time (PT) 12.1 10.0 - 13.5 seconds 12/25/2024 6:19 AM EST [facility] INR 1.1 12/25/2024 6:19 AM EST [facility] Comment:INR Therapeutic Rang es: Standard dose anticoagulant 2.0 to 3.0, High dose anticoagulant 2.5-3.5. Blood Plasma specimen / Unknown 12/25/2024 5:33 AM EST 12/25/2024 6:08 AM EST Easton Aguirre PA-C LAB BLOOD ORDERABLES [facility] [address] [place] [address], * (ABNORMAL) LIPID PANEL (12/25/2024 5:33 AM EST) Cholesterol, Total 168 <200 mg/dL 2024 8:24 AM EST [facility] Triglycerides 135 <150 mg/dL 12/25/2024 8:24 AM EST [facility] Cholesterol, HDL 43(L) >60 mg/dL 12/25/19 8:24 AM EST [facility] Estimated LDL 98 <130 mg/dL 12/25/2024 8:24 AM EST [facility] Comment: NCEP Guidelines: ?< 100 mg/dL ??Optimal 100 - 129 mg/dL ??Near Optimal/Above Optimal 130 - 159 mg/dL ??Borderline High 160 - 189 mg/dL ??High ??>/= 190 mg/dL ??Very High Cholesterol/HDL Ratio 3.9 0.0 - 5.0 Ratio 12/25/2024 8:24 AM EST [facility] Comment: Relative Risk ? Ratio - Male ? Ratio - Female ?0.5 ?3.4 ?3.3 ?1.0 ?5.0 ?4.4 ?2.0 ?9.6 ?7.1 ?3.0 ? 23.4 ? 11.0 Plasma/Serum 12/25/2024 5:33 AM EST 12/25/2024 6:08 AM EST Kristina PETERS LAB BLOOD ORDERABLES [facility] [address] [place] [address], * (ABNORMAL) Comprehensive Metabolic Panel (12/25/2024 5:33 AM EST) Glucose 131(H) 74 - 106 mg/dL 12/25/2024 6:35 AM EST [facility] Comment:Fasting: <100 mg/dL, Non-Fasting: <200 mg/dL (ADA 2005) Blood Urea Nitrogen (BUN) 10 9 - 23 mg/dL 12/25/2024 6:35 AM EST [facility] Creatinine 0.9 0.6 - 1.0 mg/dL 12/25/2024 6:35 AM EST [facility] eGFR 69 >59 12/25/2024 6:35 AM EST [facility] Comment:CKD-EPI (2020) in mL /min/1.73 sq meters. Sodium 139 136 - 145 mmol/L 12/25/2024 6:35 AM EST [facility] Potassium 4.4 3.4 - 4.5 mmol/L 12/25/2024 6:35 AM EST [facility] Chloride 107 98 - 107 mmol/L 12/25/2024 6:35 AM EST [facility] CO2 24 20 - 31 mmol/L 12/25/2024 6:35 AM EST [facility] Calcium 10.1 8.7 - 10.5 mg/dL 12/25/2024 6:35 AM EST [facility] Alkaline Phosphatase 125(H) 32 - 122 U/L 12/25/2024 6:35 AM EST [facility] Aspartate Aminotrans (AST) 79(H) <34 U/L 12/25/2024 6:35 AM EST [facility] Alanine Aminotrans (ALT) 98(H) 7 - 35 U/L 12/25/2024 6:35 AM EST [facility] Bilirubin, Total 0.6 0.3 - 1.2 mg/dL 12/25/2024 6:35 AM EST [facility] Protein, Total 7.5 5.7 - 8.2 g/dL 12/25/2024 6:35 AM EST [facility] Albumin 4.6 3.4 - 4.8 g/dL 12/25/2024 6:35 AM EST [facility] BUN/Creatinine Ratio 11 10.0 - 25.0 Ratio 12/25/2024 6:35 AM EST [facility] Globulin 2.9 1.5 - 3.9 g/dL 12/25/2024 6:35 AM EST [facility] Albumin/Globulin Ratio 1.6 1.5 - 2.5 Ratio 12/25/2024 6:35 AM EST [facility] Anion Gap 8 5 - 15 12/25/2024 6:35 AM EST [facility] Blood (Plasma/Serum) 12/25/2024 5:33 AM EST 12/25/2024 6:08 AM EST Kristina PETERS LAB BLOOD ORDERABLES [facility] [address] [place] [address], * Troponin I, High Sensitivity (Once) (12/24/2024 10:01 PM EST) Only the most recent of3 resultswithin the time period is included. Troponin I, High Sensitivity 29 <34 ng/L 12/24/2024 10:51 PM EST [facility] Delta (HS Troponin I) Unable to calculate result 12/24/2024 10:51 PM EST [facility] Blood Serum specimen / Unknown 12/24/2024 10:01 PM EST 12/24/2024 10:11 PM EST Kristina PETERS LAB BLOOD ORDERABLES [facility] [address] [place] [address], * CC CORONARY ANGIO W/LV, CC KELLEN PLACEMENT, 1ST ARTERY (12/24/2024 3:56 PM EST) Anatomical Region Laterality Modality X-Ray Angiograph y Narrative 12/24/2024 4:05 PM EST Table formatting from the original result was not included. Images from the original result were not included. [facility] Heart [facility] Vascular [place] [facility] - Cardiac Catheterization Laboratory PATIENT DEMOGRAPHIC INFORMATION Name: Heidi Hazel : 1955 69 y.o. Sex: female Gender: female Procedure Date: 12/24/2024 Referring Physician: Darian Valente PCP: No primary care provider on file. Procedure(s): Procedures: ??* CORONARY ANGIO W/LV ??* KELLEN PLACEMENT, 1ST ARTERY Indication: ? Orthotic Technician: Santosh Brady MD Intelligence Senior Sergeant(s): Vivek Kenny and None Anginal Classification: Typical [...] unstable angina, abnormal stress test transferred from [facility]. ACCESS Access: Right Radial Artery Sheath(s): 6Fr [place] Sheath Hemostasis Method: TR Band DIAGNOSTIC FINDINGS [...] mariana. Inflation time: 8 sec. Supplies used: [id number] CORONARY STENT SYSTEM SYNERGY XD MR 2.25MM 16MM DELIVERY SYS Intervention Angioplasty ??was performed following stent deployment. Maximum pressure: 14 mariana. Inflation time: 6 sec. Multiple inflations Supplies used: [id number] CATHETER BALLOON DIL NC EMERGE MR 2.5MM 12MM 2 LUM TAPER TIP Intervention Angioplasty ??was performed following stent deployment. Maximum pressure: 18 mariana. Inflation time: 6 sec. Supplies used: [id number] CATHETER BALLOON DIL NC EMERGE MR 2.5MM 12MM 2 LUM TAPER TIP Post-Intervention Lesion Assessment The intervention was successful. The guidewire crossed the lesion. Post-intervention NAS flow is 3. Lesion had 10 mm of its length treated. The patient was therapeutically anticoagulated with intravenous bivalirudin. ??A 6 [place] EBU 3.5 guide sat fairly well. ??The [...] ??The LAD flow was excellent Supplies used: [id number] CORONARY STENT SYSTEM SYNERGY XD MR 2.25MM [...] this patient that I request from a [facility] PA/OB/GYN DOCTOR/fellow/staff member. Santosh Brady MD [facility] [place] 12/24/2024 ??4:04 PM Coronary Findings Diagnostic Dominance: [...] mariana. Inflation time: 8 sec. Supplies Used: [id number] CORONARY STENT SYSTEM SYNERGY XD MR 2.25MM 16MM DELIVERY SYS Intervention: Angioplasty was performed following stent deployment. Maximum pressure: 14 mariana. Inflation time: 6 sec. Multiple inflations Supplies Used: [id number] CATHETER BALLOON DIL NC EMERGE MR 2.5MM 12MM 2 LUM TAPER TIP Intervention: Angioplasty was performed following stent deployment. Maximum pressure: 18 mariana. Inflation time: 6 sec. Supplies Used: [id number] CATHETER BALLOON DIL NC EMERGE MR 2.5MM 12MM 2 LUM TAPER TIP Post-Intervention Lesion Assessment: The intervention was successful. The guidewire crossed the lesion. Post-intervention NAS flow is 3. Lesion had 10 mm of its length treated. The patient was therapeutically anticoagulated with intravenous bivalirudin. A 6 [place] EBU 3.5 guide sat fairly well. The [...] The LAD flow was excellent Supplies Used: [id number] CORONARY STENT SYSTEM SYNERGY XD MR 2.25MM 16MM DELIVERY SYS There is a 0% residual stenosis post intervention. Cardiac Protocol CAD Kristina PETERS CV CARDIAC CATH ORDERABLES * (ABNORMAL) POCT Activated Clotting Time (ACT) (12/24/2024 3:45 PM EST) [facility] Activated Clotting Time, POC 407(A) 89 - 169 seconds Blood Blood specimen / Unknown Santosh Brady MD POINT OF CARE TEST O RDERABLES * Heparin Assay (Anti Xa) (12/24/2024 2:03 PM EST) [facility] Anti Xa 0.39 IU/mL 12/24/2024 3:42 PM EST [facility] Comment: (NOTE) Heparin Thromboembolic/Standard/Full Dose Protocol: Therapeutic [...] IV HEPARIN, UNFRACTIONATED 12/24/2024 2:02 PM EST [facility] Blood Plasma specimen / Unknown 12/24/2024 2:03 PM EST 12/24/2024 3:09 PM EST Juwan Willingham MD LAB BLOOD ORDERABLES [facility] [address] [place] [address], * (ABNORMAL) Complete Blood Count, WITHOUT Differential (routine) (12/24/2024 2:02 PM EST) White Blood Cell Count 6.0 4.0 - 11.0 Thou/uL 12/24/2024 3:12 PM EST [facility] Platelet Count 270 150 - 450 Thou/uL 12/24/2024 3:12 PM EST [facility] Hemoglobin 14.6 11.7 - 15.7 g/dL 12/24/2024 3:12 PM EST [facility] Hematocrit 43.4 35.0 - 47.0 % 12/24/2024 3:12 PM EST [facility] Red Blood Cell Count 4.66 4.00 - 5.40 Mil/uL 12/24/2024 3:12 PM EST [facility] MCV 93 80 - 100 fL 12/24/2024 3:12 PM EST [facility] MCH 31.3(H) 27.0 - 31.0 pg 12/24/2024 3:12 PM EST [facility] MCHC 33.6 30.0 - 36.0 g/dL 12/24/2024 3:12 PM EST [facility] RDW 12.2 11.5 - 14.5 % 12/24/2024 3:12 PM EST [facility] MPV 9.8 7.5 - 12.5 fL 12/24/2024 3:12 PM EST [facility] Blood Blood specimen / Unknown 12/24/2024 2:02 PM EST 12/24/2024 3:08 PM EST Juwan Willingham MD LAB BLOOD ORDERABLES [facility] [address] [place] [address], * (ABNORMAL) Basic Metabolic Panel (Routine) (12/24/2024 2:02 PM EST) Glucose 130(H) 74 - 106 mg/dL 12/24/2024 3:33 PM EST [facility] Comment:Fasting: <100 mg/dL, Non-Fasting: <200 mg/dL (ADA 2005) Blood Urea Nitrogen (BUN) 13 9 - 23 mg/dL 12/24/2024 3:33 PM EST [facility] Creatinine 0.8 0.6 - 1.0 mg/dL 12/24/2024 3:33 PM EST [facility] eGFR 80 >59 12/24/2024 3:33 PM EST [facility] Comment:CKD-EPI (2020) in mL /min/1.73 sq meters. Sodium 139 136 - 145 mmol/L 12/24/2024 3:33 PM EST [facility] Potassium 3.8 3.4 - 4.5 mmol/L 12/24/2024 3:33 PM EST [facility] Chloride 103 98 - 107 mmol/L 12/24/2024 3:33 PM EST [facility] CO2 27 20 - 31 mmol/L 12/24/2024 3:33 PM EST [facility] Anion Gap 9 5 - 15 12/24/2024 3:33 PM EST [facility] Calcium 10.2 8.7 - 10.5 mg/dL 12/24/2024 3:33 PM EST [facility] BUN/Creatinine Ratio 16 10.0 - 25.0 Ratio 12/24/2024 3:33 PM EST [facility] Blood (Plasma/Serum) 12/24/2024 2:02 PM EST 12/24/2024 3:08 PM EST Juwan Willingham MD LAB BLOOD ORDERABLES [facility] [address] [place] [address], * CR Chest Archive for Reference only (12/24/2024 10:48 AM EST) Brandi BIRD - 12/24/2024 10:48 AM EST This study has been auto finalized and does not contain a result. File Room Provider IMG DIGITIZE FILMS MARGE [phone] from Last 3 Months Advance Directives * Full Code (Latest Code Status on File) Date Activated Date Inactivated Comments 12/24/2024 1:32 PM Care Teams Group Social Worker Relationship Specialty Start Date End Date Ngoc Ordonez APRN [address] [place] [phone] PCP - General Family Medicine 12/24/24 Beau Hays MD [facility] [place] [address] Primary Can Worker Cardiovascular Disease 01/07/25
--- OUTSIDE RECORDS SUMMARY | 2025-01-08 13:58 | XMS_ITS ---
Author Name [facility] Organization Unknown Results Test Name/Text Value Interpretation Date Range Source Est. average glucose Bld gHb Est-mCnc 140mg/dL Normal [id number] [facility] Hgb A1c MFr Bld 6.5% Above high normal [id number] - 5 .7 [facility] HDLc SerPl 3.9Ratio Normal [id number] 0 - 5 [facility] LDLc SerPl Calc-mCnc 98mg/dL Normal [id number] - 130 [facility] HDLc SerPl-mCnc 43mg/dL Below low normal [id number] 60 - [facility] Trigl SerPl-mCnc 135mg/dL Normal [id number] - 150 [facility] Cholest SerPl-mCnc 168mg/dL Normal 772518742000 - 200 [facility] POC Glucose 136mg/dL Above high normal [id number] 65 - 99 [facility] Globulin Ser Calc-mCnc 2.9g/dL Normal [id number] 1.5 - 3.9 [facility] ALT SerPl-cCnc 98U/L Above high normal [id number] 7 - 35 [facility] AST SerPl-cCnc 79U/L Above high normal [id number] - 34 [facility] GFR/BSA.pred SerPlBld HDF-ZQN-HtBJih 69 Normal [id number] 59 - [facility] Albumin SerPl-mCnc 4.6g/dL Normal [id number] 3.4 - 4. 8 [facility] Albumin/Glob SerPl 1.6Ratio Normal [id number] 1.5 - 2. 5 [facility] Creat SerPl-mCnc 0.9mg/dL Normal [id number] 0.6 - 1 [facility] Bilirub SerPl-mCnc 0.6mg/dL Normal [id number] 0.3 - 1. 2 [facility] Anion Gap Bld-sCnc 8 Normal [id number] 5 - 15 [facility] Sodium SerPl-sCnc 139mmol/L Normal [id number] 136 - 145 [facility] Potassium SerPl-sCnc 4.4mmol/L Normal [id number] 3.4 - 4.5 [facility] Chloride SerPl-sCnc 107mmol/L Normal [id number] 98 - 107 [facility] Glucose SerPl-mCnc 131mg/dL Above high normal [id number] 74 - 106 [facility] Prot SerPl-mCnc 7.5g/dL Normal [id number] 5.7 - 8.2 H [facility] BUN/Creat SerPl 11Ratio Normal [id number] 10 - 25 H [facility] Calcium SerPl-mCnc 10.1mg/dL Normal [id number] 8.7 - 10 .5 [facility] CO2 SerPl-sCnc 24mmol/L Normal [id number] 20 - 31 HH CCT BUN SerPl-mCnc 10mg/dL Normal [id number] 9 - 23 HH CCT ALP SerPl-cCnc 125U/L Above high normal [id number] 32 - 122 [facility] INR PPP 1.1 Normal [id number] [facility] Prothrombin time 12.1seconds Normal [id number] 10 - 13. 5 [facility] aPTT PPP 33seconds Normal [id number] 26 - 37 [facility] Imm Granulocytes/leuk NFr Bld Auto 0.2% Normal [id number] [facility] Lymphocytes/leuk NFr Bld Auto 29.1% Normal [id number] [facility] PMV Bld Auto 9.4fL Normal [id number] 7.5 - 12.[address] Monocytes num Bld Auto 0.55Thou/uL Normal [id number] 0.2 - 1.5 [facility] Hct VFr Bld Auto 42.9% Normal [id number] 35 - 47 [facility] Neutrophils num Bld Auto 2.69Thou/uL Normal [id number] 2 - 7.5 [facility] Neutrophils/leuk NFr Bld Auto 53% Normal [id number] [facility] Basophils/leuk NFr Bld Auto 2.2% Normal [id number] [facility] Basophils num Bld Auto 0.11Thou/uL Normal [id number] 0 - 0.2 [facility] Monocytes/leuk NFr Bld Auto 10.8% Normal [id number] H[facility]CT Eosinophil num Bld Auto 0.24Thou/uL Normal [id number] 0 - 0.7 [facility] MCH RBC Qn Auto 31.1pg Above high normal [id number] 27 - 31 [facility] Eosinophil/leuk NFr Bld Auto 4.7% Normal [id number] [facility] Imm Granulocytes num Bld Auto 0.01Thou/uL Normal [id number] 0 - 0.1 [facility] RDW RBC Auto-Rto 12.2% Normal [id number] 11.5 - 14.5 [facility] Platelet num Bld Auto 245Thou/uL Normal [id number] 150 - 450 [facility] MCHC RBC Auto-mCnc 33.1g/dL Normal [id number] 30 - 36 [facility] MCV RBC Auto 94fL Normal [id number] 80 - 100 [facility] T WBC num Bld Auto 5.1Thou/uL Normal [id number] 4 - 11 [facility] RBC num Bld Auto 4.57Mil/uL Normal [id number] 4 - 5.4 [facility] Hgb Bld-mCnc 14.2g/dL Normal [id number] 11.7 - 15.7 [facility] Lymphocytes num Bld Auto 1.48Thou/uL Below low normal [id number] 1.5 - 4.5 [facility] Anticoagulant IV HEPARIN, UNFRACTIONATED Normal [id number] [facility]CT Anticoagulant IV HEPARIN, UNFRACTIONATED Normal [id number] H[facility] Delta Normal [id number] H[facility]CT Troponin I SerPl DL<=0.01 ng/mL-mCnc 29ng/L Normal [id number] - 34 [facility] POC Glucose 208mg/dL Above high normal 162971835620 65 - 99 [facility] Delta Normal [id number] H[facility]CT Troponin I SerPl DL<=0.01 ng/mL-mCnc 5ng/L Normal [id number] - 34 [facility] POC Glucose 150mg/dL Above high normal [id number] 65 - 99 [facility]CT LMWH PPP [employer] Installer-aCnc 0.39IU/mL Normal [id number] H[facility]CT Chloride SerPl-sCnc 103mmol/L Normal 98 - 107 [facility]CT Glucose SerPl-mCnc 130mg/dL Above high normal [id number] 74 - 106 [facility]CT GFR/BSA.pred SerPlBld [facility]-DSD-JxELoc 80 Normal [id number] 59 - HHCCT Creat SerPl-mCnc 0.8mg/dL Normal 0.6 - 1 [facility] BUN/Creat SerPl 16Ratio Normal [id number] 10 - 25 H [facility] Anion Gap Bld-sCnc 9 Normal [id number] 5 - 15 [facility]CT Calcium SerPl-mCnc 10.2mg/dL Normal 8.7 - 10 .5 [facility]CT CO2 SerPl-sCnc 27mmol/L Normal 20 - 31 HH CCT BUN SerPl-mCnc 13mg/dL Normal 9 - 23 HH CCT Sodium SerPl-sCnc 139mmol/L Normal 136 - 145 [facility]CT Potassium SerPl-sCnc 3.8mmol/L Normal 3.4 - 4.5 H[facility]CT Delta Normal H[facility]CT Troponin I SerPl DL<=0.01 ng/mL-mCnc 3ng/L Normal [id number] - 34 [facility] POC Glucose 135mg/dL Above high normal [id number] 65 - 99 [facility]CT MCH RBC Qn Auto 31.3pg Above high normal [id number] 27 - 31 [facility] PMV Bld Auto 9.8fL Normal 7.5 - 12.[address] RDW RBC Auto-Rto 12.2% Normal 11.5 - 14.5 H[facility]CT Hct VFr Bld Auto 43.4% Normal 35 - 47 [facility] Platelet num Bld Auto 270Thou/uL Normal [id number] 150 - 450 [facility]CT MCHC RBC Auto-mCnc 33.6g/dL Normal 30 - 36 [facility]CT MCV RBC Auto 93fL Normal [id number] 80 - 100 [facility] T WBC num Bld Auto 6Thou/uL Normal [id number] 4 - 11 [facility] RBC num Bld Auto 4.66Mil/uL Normal [id number] 4 - 5.4 [facility]CT Hgb Bld-mCnc 14.6g/dL Normal [id number] 11.7 - 15.7 [facility]CT Anticoagulant IV HEPARIN, UNFRACTIONATED Normal [id number] HHCCT
--- OUTSIDE RECORDS SUMMARY | 2025-01-08 13:58 | XMS_ITS | Encounter Summary ---
Author Organization [facility] Address [address] [place] [id number] Care Team Providers Care Marriage And Family Teacher Name Role Phone Ngoc Ordonez APRN Primary Care Provider + Reason for Referral * Cardiology (Routine) - Closed Specialty Diagnoses / Procedures Referred By Contact Referred To Contact Cardiovascular Disease / Cardiac Rehabilitation Diagnoses NSTEMI (non-ST elevated myocardial infarction) (HCC) Keenan Arreguin MD [address] [place] [address] [facility] [address] [place] [id number] Referral ID Status Reason Start Date Expiration Date V isits Requested Visits Authorized [id number] Closed Support Services 12/25/2024 12/26/2025 1 1 Question Answer Indication for Cardiac Rehab Angioplasty/Stent Reason for Visit * Auth/Cert Specialty Diagnoses / Procedures Referred By Contac t Referred To Contact Diagnoses abnormal stress Procedures . Referral ID Status Reason Start Date Expiration Date Visits Re quested Visits Authorized [id number] 1 1 Encounter Details Date Type Department Care Team (Latest Contact Info) Description 12/24/2024 1:26 PM EST - 12/25/2024 12:36 PM EST Hospital Encounter [facility] [address] [place] [phone] Juwan Willingham MD [address] [place] [address] Keenan Arreguin MD [address] [place] [address] NSTEMI (non-ST elevated myocardial infarction) (HCC) (Primary Dx) Discharge Disposition: Home or Self Care Social History Tobacco Use Types Packs/Day Years Used Date Smoking Tobacco: Never Assessed [facility] Utilities Answer Date Recorded In the past 12 months has th e electric, gas, oil, or water company threatened to shut off services in your [...] any time in the past 12 [facility], were you homeless or living in a retirement (including now)? No 12/25/2024 Sex and Gender Information Value Date Recorded Sex Assigned at Female 12/24/2024 1:09 PM EST Gender Identity Female 12/24/2024 1:09 PM EST Sexual Orientation Heterosexual (straight) 12/24 1:09 PM EST documented as of this encounter Last Filed Vital Signs Vital Sign Reading Time Taken Comments Blood Pressure 160/82 12/25/2024 8:00 AM EST Pulse 69 12/25/2024 8:00 AM EST Temperature 36.8 ??C (98.3 ??F) 12/25/2024 8:00 AM ES T Respiratory Rate 18 12/25/2024 8:00 AM EST Oxygen Saturation 92% 12/25/2024 8:00 AM EST Inhaled Oxygen Concentration - - [...] MD Primary Care Physician at Discharge: Ngoc Ordonez, LONG TERM CARE SOCIAL WORKER Discharge Date: 12/25/2024 Primary Discharge Diagnosis Unstable angina Secondary Discharge Diagnosis No past medical history on file. Procedure and Studies during Hospitalization: Surgical/Procedural Cases on this Admission Case IDs Date Procedure Surgeon Location Status [id number] 12/24/24 CORONARY ANGIO W/LV Santosh Brady MD [facility] CONSULTING SERVICES PROJECT MANAGER Comp Consultations: Cardiology Discharge Medications Discharge Medications [...] MG tablet Commonly known as: CATAPRES Followup: [facility] Card[facility] Rehab of [address] [phone] Ngoc Ordonez, LONG TERM CARE SOCIAL WORKER [address] [facility] [id number] Code Status: Full Code HPI and Hospital Course 69-year-old female with history of hypertension, fatty liver disease, diabetes, hyperlipidemia presented from [facility] for unstable angina S/p [facility] with successful stenting of severe and stable first diagonal disease with KELLEN And doing well postprocedure. Ambulating without any recurrence of chest pain. Continue uninterrupted aspirin, Plavix, statin Started on metoprolol succinate 25 mg daily Continue home losartan, Norvasc Discussed with cardiology-will hold clonidine until follow-up in cardiology clinic for further adjustment The patient states that she has cardiology appointment in [place] however, the appointment is not until late February. A cardiology appointment has been scheduled in our cardiology office on 01/07.The patient is in agreement to come here [...] to the cardiac rehab department from your ict support technicians. [facility] Referral is included in your cardiac rehab folder. The Cardiac rehab staff will schedule an initial assessment with you before starting the exercise program. When: Depending your diagnosis, when you can start cardiac rehab will vary: Open Heart Surgery - 4-6 weeks after surgery Angioplasty / Stents - 1-2 weeks after the procedure Heart Attack / Transplant- At ict support technicians discretion Heart Failure - 6 weeks after discharge from hospital If you have any further questions or would like more information, please contact [place] [id number] [place] [address] Fax: [facility] [address] [place] [address] [facility] - CARDIAC REHAB [address] [place] [address] [place] [address] [facility] Address: [address] [place] [address] [address], [place] [address] [place] [employer] for [employer]iac Rehab [...] to the cardiac rehab department from your ict support technicians. [facility] Referral is included in your cardiac rehab folder. The Cardiac Rehab staff will schedule an initial assessment with you before starting the exercise program. When: Depending on your diagnosis, when you can start cardiac rehab will vary: Open Heart Surgery - 4-6 weeks after surgery Angioplasty / Stents - 1-2 weeks after the procedure Heart Attack / Transplant - At ict support technicians discretion Heart Failure - 6 weeks after discharge from hospital Follow these instructions at home: Take ymqp-wiz-khkngga and prescription medicines only as told by [...] you have with your health care provider. [facility] [address] [place] [address] [place] [address] [facility] - Cardiac Rehab [address] [place] [address] [facility] [address] [place] [address] Document Released: 05/12/2006 Document Revised: 03/09/2015 Document Reviewed: 03/26/2014 ExitCare?? Patient Information ??2015 [employer]. This information is not intended to replace [...] disease, cervical fusions is a transfer from [facility] for unstable angina. 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 NSTEMI s/p KELLEN to first diagonal - asa - plavix - atorvastatin 40 mg daily - metoprolol succinate 25 mg - follow up with OP ict support technicians within 1-2 weeks of DC - scheduled January [address] Hays - pt will then follow up with her ict support technicians in [place] - telemetry - Mg>2, K>4 - EKG [...] ANGIO W/LV; Surgeon: Santosh Brady MD; Location: CONSULTING SERVICES PROJECT MANAGER; Service: Cardiovascular; Laterality: N/A; CC KELLEN PLACEMENT, 1ST ARTERY N/A 12/24/2024 Procedure: KELLEN PLACEMENT, 1ST ARTERY; Surgeon: Santosh Brady MD; Location: [facility] CONSULTING SERVICES PROJECT MANAGER; Service: Cardiovascular; Laterality: N/A; No family history [...] original result were not included. [facility] Heart & Vascular [place] [facility] - Cardiac Catheterization Laboratory PATIENT DEMOGRAPHIC INFORMATION Name: Bridgett Jernigan : 1955 69 y.o. Sex: female Gender: female Procedure Date: 12/24/2024 Referring Physician: Darian Valente PCP: No primary care provider on file. Procedure(s): Procedures: * CORONARY ANGIO W/LV * KELLEN PLACEMENT, 1ST ARTERY Indication: Crucible Packer: Santosh Brady MD Paper Conservator(s): Vivek Kenny and None Anginal Classification: Typical [...] unstable angina, abnormal stress test transferred from [facility]. ACCESS Access: Right Radial Artery Sheath(s): 6Fr Elwell Sheath Hemostasis Method: TR Band DIAGNOSTIC FINDINGS Findings Diagnostic Dominance: Right Number of lesions: 1 Left Main The vessel is large. The vessel exhibits minimal luminal irregularities. Left Anterior Descending The left anterior descending has diffuse very mild minimal irregularity. Thefirst diagonal is a medium size vessel with a 95% slightly hazy stenosis. First Diagonal Branch 1stDiag lesion is 95% stenosed. NAS flow is 3.The lesion is not complex (non high-C). Left CircumflexThe vessel is moderate in size. The vessel [...] mariana. Inflation time: 8 sec. Supplies used: [id number] CORONARY STENT SYSTEM SYNERGY XD MR 2.25MM 16MM DELIVERY SYS Intervention Angioplasty was performed following stent deployment. Maximum pressure: 14 mariana. Inflation time: 6 sec.Multiple inflations Supplies used: [id number] CATHETER BALLOON DIL NC EMERGE MR 2.5MM 12MM 2 LUM TAPER TIP Intervention Angioplasty was performed following stent deployment. Maximum pressure: 18 mariana. Inflation time: 6 sec. Supplies used: [id number] CATHETER BALLOON DIL NC EMERGE MR 2.5MM 12MM 2 LUM TAPER TIP Post-Intervention Lesion Assessment The intervention was successful. The guidewire crossed the lesion. Post-intervention NAS flow is 3. Lesion had 10 mm of its length treated. The patient was therapeutically anticoagulated with intravenous bivalirudin. A 6 Slovenian EBU 3.5 guide sat fairly well. The lesion was crossed with a Prowater and directly stented with a 2.25 x 16 mm Synergy drug-eluting stent back to the ostium of the diagonal. The stent was postdilated at high pressurewith a 2.5 x 12 mm noncompliant balloon up to 16 mariana. Final angiography demonstrated excellent result of the stented segment with normal flow into the distal diagonal. The LAD flow was excellent Supplies used: [id number] CORONARY STENT SYSTEM SYNERGY XD MR 2.25MM 16MM DELIVERY SYS There is a 0% residual stenosis post intervention. Complications: None Anesthesia: The procedure was performed under moderate conscious sedation by an independent trained observer (RN) and supervised by the under signed attending MD. See meds list. Sedation Time: 44 minutes 35 seconds Estimated Blood Loss: 5 mLVerbal Orders and Supervisory Attestation: As the attending [...] that I request from a [facility] PA/LONG TERM CARE SOCIAL WORKER/fellow/staff member. Santosh Brady MD [facility] 12/24/2024 4:04 PM 24 hour telemetry: Normal [...] have discussed the case with the Physician Paper Conservator/LONG TERM CARE SOCIAL WORKER and we have formulated the plan. I [...] Patient arrived on unit @ 1800 from lab intern via stretcher accompanied by 2 Cardiac atomic spectroscopist's on [facility]. A + O x4. Vital signs stable. [...] Patient arrived on unit @ 1440 from [facility] via stretcher. A + O x4. [...] disease, cervical fusions is a transfer from [facility] for unstable angina. Today, patient appears warm, [...] stress test so will send patient for [facility] today. Per patient's record from [facility] H&H 14.3/41.5, platelets 232, potassium 4.3, BUN [...] -EKG for chest pain -Follow-up with outpatient ict support technicians within 1 week of discharge Risk, benefits [...] disease, cervical fusions is a transfer from [facility] for unstable angina. Over the past couple [...] or drug use. Patient just moved from [place] to [facility]. Patient [place] ict support technicians [place] to be seen by her ict support technicians in [place]. Review of systems: Review of Systems Constitutional: [...] 12:36 PM EST PATIENT DISCHARGED 12/25/2024 Per State of [place] General Statutes Sec: 38a-226c: Notification of determination shall be mailed or otherwise communicated within 2 business days of receipt of all information necessary to complete the review. Please fax authorization determination to [phone] or call [phone]. * Case Coordination-Payor Communication - Romero Heck - 12/25/2024 12:36 PM EST 2nd request: Please follow-up with the Clinical Resource Management Department via fax ([phone]) or phone ([phone]) with status of authorization [facility]. Thank you. * Plan of Care - [...] will follow up with own cardio in [place] No services needed. Patient in agreement. Discharged [...] Does the Patient Have a CT DNR [place] Bracelet or State DNR Form?: no Clinical [...] RRA site CDI no sign of hematoma. +[facility] checks WDL. Multiple attempts were made to update pt's by this RN, but pt's husbands phone kept going straight to voicemail. Angiomax stopped per orders at 1800. Plan for TR band to be removed at 2000. Report called and given to Neisha ALONZO. Pt transported on monitor with RN assist. [facility] * Case Coordination-Payor Communication - June Mcnamara [...] disease, cervical fusions is a transfer from [facility] for unstable angina. Today, patient appears warm, well-perfused, euvolemic. Patient has had substernal chest pain x 1 year with escalation since this summer. Yesterday patient experienced chest pain at rest and has beenpersistent since. Patient went to the hospital due to hypotension, chest pain with associated nausea and tachypnea. Patient had recent stress test which [...] for LHC today. Per patient's record from [facility] H&H 14.3/41.5, platelets 232, potassium 4.3, BUN [...] have tamponade physiology. Patient consented for LHC. Vitals: Date/Time Temp Pulse Resp BP SpO2 O2 Device 12/24/24 15:12:05 -- -- -- -- -- nasal cannula 12/24/24 1501 97 (36.1) 75 16 152/80 Abnormal 96 room air (none) 12/24/24 1352 -- 77 -- -- -- -- 12/24/24 1337 98.4 (36.9) 75 18 160/85 Abnormal 94 room air (none) 3L MS Labs/Diagnostics: Latest Reference Range & Units 12/24/24 [...] ECGs available Confirmed by MD Sanches Osman ([id number]) on 12/24/2024 2:14:31 PM Imaging Studies Echocardiogram [...] 6.5(H) <5.7 % 12/25/2024 5:38 PM EST [facility] Comment: A1c% ? Interpretation 5.7 - 6.0 ?Increase risk of diabetes 6.1 - 6.4 ?Higher risk of diabetes > or = 6.5 ?? Consistent with diabetes Diabetes Care, 33(Supp 1):S1-S61, 2010 Estimated Average Glucose 140 mg/dL 12/25/2024 5:38 PM EST [facility] Blood Blood specimen / Unknown 12/25/2024 8:00 AM EST 12/25/2024 8:12 AM EST Keenan Arreguin MD LAB BLOOD ORDERABLES Performing Organization Address City/[facility]/[place] [address], [place] [address] * (ABNORMAL) POCT Glucose, Fingerstick (12/25/2024 7:39 AM EST) POC Glucose 136(H) 65 - 99 mg/dL 12/25/2024 7:46 AM EST Comment:Notified RN Blood specimen / Unknown 12/25/2024 7:39 AM EST 12/25/2024 7:46 AM EST Keenan Arreguin MD POINT OF CARE TEST O RDERABLES HOSPITAL LAB See Below * (ABNORMAL) LIPID PANEL (12/25/2024 5:33 AM EST) Cholesterol, Total 168 <200 mg/dL 2024 8:[address] [facility] Triglycerides 135 <150 mg/dL 12/25/2024 8:24 AM EST [facility] Cholesterol, HDL 43(L) >60 mg/dL 12/25/19 8:24 AM EST [facility] Estimated LDL 98 <130 mg/dL 12/25/2024 8:24 AM EST [facility] Comment: NCEP Guidelines: ?< 100 mg/dL ??Optimal 100 - 129 mg/dL ??Near Optimal/Above Optimal 130 - 159 mg/dL ??Borderline High 160 - 189 mg/dL ??High ??>/= 190 mg/dL ??Very High Cholesterol/HDL Ratio 3.9 0.0 - 5.0 Ratio 12/25/2024 8:24 AM EST [facility] Comment: Relative Risk ? Ratio - Male ? Ratio - Female ?0.5 ?3.4 ?3.3 ?1.0 ?5.0 ?4.4 ?2.0 ?9.6 ?7.1 ?3.0 ? 23.4 ? 11.0 Plasma/Serum 12/25/2024 5:33 AM EST 12/25/2024 6:08 AM EST Kristina PETERS LAB BLOOD ORDERABLES [facility] [address] [place] [address], * Protime-INR (12/25/2024 5:33 AM EST) Anticoagulant IV HEPARIN, UNFRACTIONATED 12/24/2024 11:01 PM EST [facility] Prothrombin Time (PT) 12.1 10.0 - 13.5 seconds 12/25/2024 6:19 AM EST [facility] INR 1.1 12/25/2024 6:19 AM EST [facility] Comment:INR Therapeutic Rang es: Standard dose anticoagulant 2.0 to 3.0, High dose anticoagulant 2.5-3.5. Blood Plasma specimen / Unknown 12/25/2024 5:33 AM EST 12/25/2024 6:08 AM EST Easton Aguirre PA-C LAB BLOOD ORDERABLES [address] * Partial Thromboplastin Time (PTT) (12/25/2024 5:33 AM EST) Anticoagulant IV HEPARIN, UNFRACTIONATED 12/24/2024 11:01 PM EST [facility] Partial Thromboplastin Time (PTT) 33 26 - 37 seconds 12/25/2024 6:19 AM EST [facility] Blood Plasma specimen / Unknown 12/25/2024 5:33 AM EST 12/25/2024 6:08 AM EST Easton Aguirre PA-C LAB BLOOD ORDERABLES [address] * (ABNORMAL) Comprehensive Metabolic Panel (12/25/2024 5:33 AM EST) Glucose 131(H) 74 - 106 mg/dL 12/25/2024 6:35 AM EST [facility] Comment:Fasting: <100 mg/dL, Non-Fasting: <200 mg/dL (ADA 2005) Blood Urea Nitrogen (BUN) 10 9 - 23 mg/dL 12/25/2024 6:35 AM EST [facility] Creatinine 0.9 0.6 - 1.0 mg/dL 12/25/2024 6:35 AM [facility] eGFR 69 >59 12/25/2024 6:35 AM [facility] Comment:CKD-EPI (2020) in mL /min/1.73 sq meters. Sodium 139 136 - 145 mmol/L 12/25/2024 6:35 AM [facility] Potassium 4.4 3.4 - 4.5 mmol/L 12/25/2024 6:35 AM [facility] Chloride 107 98 - 107 mmol/L 12/25/2024 6:35 AM [facility] CO2 24 20 - 31 mmol/L 12/25/2024 6:35 AM [facility] Calcium 10.1 8.7 - 10.5 mg/dL 12/25/2024 6:35 AM [facility] Alkaline Phosphatase 125(H) 32 - 122 U/L 12/25/2024 6:35 AM [facility] Aspartate Aminotrans (AST) 79(H) <34 U/L 12/25/2024 6:35 AM [facility] Alanine Aminotrans (ALT) 98(H) 7 - 35 U/L 12/25/2024 6:35 AM [facility] Bilirubin, Total 0.6 0.3 - 1.2 mg/dL 12/25/2024 6:35 AM [facility] Protein, Total 7.5 5.7 - 8.2 g/dL 12/25/2024 6:35 AM [facility] Albumin 4.6 3.4 - 4.8 g/dL 12/25/2024 6:35 AM [facility] BUN/Creatinine Ratio 11 10.0 - 25.0 Ratio 12/25/2024 6:35 AM [facility] Globulin 2.9 1.5 - 3.9 g/dL 12/25/2024 6:35 AM [facility] Albumin/Globulin Ratio 1.6 1.5 - 2.5 Ratio 12/25/2024 6:35 AM EST [facility] Anion Gap 8 5 - 15 12/25/2024 6:35 AM EST [facility] Blood (Plasma/Serum) 12/25/2024 5:33 AM EST 12/25/2024 6:08 AM EST Kristina PETERS LAB BLOOD ORDERABLES [facility] [address] [place] [address], [place] * (ABNORMAL) Complete Blood Count, with Differential (12/25/2024 5:33 AM EST) White Blood Cell Count 5.1 4.0 - 11.0 Thou/uL 12/25/2024 6:12 AM EST [facility] Platelet Count 245 150 - 450 Thou/uL 12/25/2024 6:12 AM EST [facility] Hemoglobin 14.2 11.7 - 15.7 g/dL 12/25/2024 6:12 AM EST [facility] Hematocrit 42.9 35.0 - 47.0 % 12/25/2024 6:12 AM EST [facility] Red Blood Cell Count 4.57 4.00 - 5.40 Mil/uL 12/25/2024 6:12 AM EST [facility] MCV 94 80 - 100 fL 12/25/2024 6:12 AM EST [facility] MCH 31.1(H) 27.0 - 31.0 pg 12/25/2024 6:12 AM EST [facility] MCHC 33.1 30.0 - 36.0 g/dL 12/25/2024 6:12 AM EST [facility] RDW 12.2 11.5 - 14.5 % 12/25/2024 6:12 AM EST [facility] MPV 9.4 7.5 - 12.5 fL 12/25/2024 6:12 AM EST [facility] Neutrophils Auto 53.0 % 12/25/19 6:12 AM EST [facility] Immature Granulocytes 0.2 % 12/25/2024 6:12 AM EST [facility] Lymphocytes Auto 29.1 % 12/25/19 6:12 AM EST [facility] Monocytes Auto 10.8 % 12/25/2024 6:12 AM EST [facility] Eosinophils Auto 4.7 % 12/25/19 6:12 AM EST [facility] Basophils Auto 2.2 % 12/25/2024 6:12 AM EST [facility] Abs Neutrophils Auto 2.69 2.00 - 7.50 Thou/uL 12/25/2024 6:12 AM EST [facility] Abs Immature Granulocytes 0.01 0.00 - 0.10 Thou/uL 12/25/2024 6:12 AM EST [facility] Abs Lymphocytes Auto 1.48(L) 1.50 - 4.50 Thou/uL 12/25/2024 6:12 AM EST [facility] Abs Monocytes Auto 0.55 0.20 - 1.50 Thou/uL 12/25/2024 6:12 AM EST [facility] Abs Eosinophils Auto 0.24 0.00 - 0.70 Thou/uL 12/25/2024 6:12 AM EST [facility] Abs Basophils Auto 0.11 0.00 - 0.20 Thou/uL 12/25/2024 6:12 AM EST [facility] Blood Blood specimen / Unknown 12/25/2024 5:33 AM EST 12/25/2024 6:08 AM EST Kristina PETERS LAB BLOOD ORDERABLES [facility] [address] [place] [address], * Troponin I, High Sensitivity (Once) (12/24/2024 10:01 PM EST) Troponin I, High Sensitivity 29 <34 ng/L 12/24/2024 10:51 PM EST [facility] Delta (HS Troponin I) Unable to calculate result 12/24/2024 10:51 PM EST [facility] Blood Serum specimen / Unknown 12/24/2024 10:01 PM EST 12/24/2024 10:11 PM EST Kristina PETERS LAB BLOOD ORDERABLES Performing Organization Address City/[facility]/ZIP Co de Phone Number [facility] [address] [place] [address], [place] * (ABNORMAL) POCT Glucose, Fingerstick (12/24/2024 8:23 PM EST) POC Glucose 208(H) 65 - 99 mg/dL 12/24/2024 8:30 PM EST Comment:Notified RN Blood specimen / Unknown 12/24/2024 8:23 PM EST 12/24/2024 8:30 PM EST Juwan Willingham MD POINT OF CARE TEST O RDERABLES HOSPITAL LAB See Below * Troponin I, High Sensitivity (Once) (12/24/2024 6:23 PM EST) Troponin I, High Sensitivity 5 <34 ng/L 12/24/2024 7:20 PM EST [facility] Delta (HS Troponin I) Unable to calculate result 12/24/2024 7:20 PM EST [facility] Blood Serum specimen / Unknown 12/24/2024 6:23 PM EST 12/24/2024 6:25 PM EST Kristina PETERS LAB BLOOD ORDERABLES Performing Organization Address City/[facility]/ZIP Co de Phone Number [facility] [address] [place] [address], [place] * (ABNORMAL) POCT Glucose, Fingerstick (12/24/2024 6:15 PM EST) POC Glucose 150(H) 65 - 99 mg/dL 12/24/2024 6:23 PM EST Comment:Notified RN Blood specimen / Unknown 12/24/2024 6:15 PM EST 12/24/2024 6:23 PM EST Juwan Willingham MD POINT OF CARE TEST O RDERABLES HOSPITAL LAB See Below * ECG 12 lead (12/24/2024 4:09 PM EST) Ventricular rate 68 BPM [facility] Atrial rate 68 BPM [facility] P-R interval 180 ms [facility] QRS duration 90 ms EKG [facility] Q-T interval 420 ms EKG [facility] QTC calculation (Bazett) 447 ms EKG [facility] P axis 34 degrees EKG [facility] R axis 10 degrees EKG [facility] T axis 41 degrees EKG [facility] 12/24/2024 4:09 PM EST Narrative [facility] - 12/24/2024 4:23 PM EST Normal sinus rhythm Cannot rule out Anterior infarct , age undetermined Abnormal ECG When compared with ECG of 24-Dec-2024 13:55, No significant change was found Confirmed by MD Hays Venu ([id number]) on 12/24/2024 4:23:39 PM Procedure Note Beau Hays MD - 12/24/2024 Normal sinus rhythm Cannot rule out Anterior infarct , age undetermined Abnormal ECG When compared with ECG of 24-Dec-2024 13:55, No significant change was found Confirmed by MD Hays Venu ([id number]) on 12/24/2024 4:23:39 PM Juwan Willingham MD ECG ORDERABLES Performing Organization Address City/[facility]/ZIP Co de Phone Number EKG [facility] * CC CORONARY ANGIO W/LV, CC KELLEN PLACEMENT, 1ST ARTERY (12/24/2024 3:56 PM EST) Anatomical Region Laterality Modality X-Ray Angiograph y Narrative 12/24/2024 4:05 PM EST Table formatting from the original result was not included. Images from the original result were not included. [facility] Heart [facility] V[facility] [place] [facility] - Cardiac Catheterization Laboratory PATIENT DEMOGRAPHIC INFORMATION Name: Bridgett Jernigan : 1955 69 y.o. Sex: female Gender: female Procedure Date: 12/24/2024 Referring Physician: Darian Valente PCP: No primary care provider on file. Procedure(s): Procedures: ??* CORONARY ANGIO W/LV ??* KELLEN PLACEMENT, 1ST ARTERY Indication: ? Crucible Packer: Santosh Brady MD Paper Conservator(s): Vivek Kenny and Anibal Anginal Classification: Typical Angina Heart Failure Classification: [...] unstable angina, abnormal stress test transferred from [facility]. ACCESS Access: Right Radial Artery Sheath(s): 6Fr Elwell Sheath Hemostasis Method: TR Band DIAGNOSTIC FINDINGS [...] mariana. Inflation time: 8 sec. Supplies used: [id number] CORONARY STENT SYSTEM SYNERGY XD MR 2.25MM 16MM DELIVERY SYS Intervention Angioplasty ??was performed following stent deployment. Maximum pressure: 14 mariana. Inflation time: 6 sec. Multiple inflations Supplies used: [id number] CATHETER BALLOON DIL NC EMERGE MR 2.5MM 12MM 2 LUM TAPER TIP Intervention Angioplasty ??was performed following stent deployment. Maximum pressure: 18 mariana. Inflation time: 6 sec. Supplies used: [id number] CATHETER BALLOON DIL NC EMERGE MR 2.5MM 12MM 2 LUM TAPER TIP Post-Intervention Lesion Assessment The intervention was successful. The guidewire crossed the lesion. Post-intervention NAS flow is 3. Lesion had 10 mm of its length treated. The patient was therapeutically anticoagulated with intravenous bivalirudin. ??A 6 Slovenian EBU 3.5 guide sat fairly well. ??The [...] ??The LAD flow was excellent Supplies used: [id number] CORONARY STENT SYSTEM SYNERGY XD MR 2.25MM [...] that I request from a [facility] PA/LONG TERM CARE SOCIAL WORKER/fellow/staff member. Santosh Brady MD [facility] 12/24/2024 ??4:04 PM Coronary Findings Diagnostic Dominance: [...] mariana. Inflation time: 8 sec. Supplies Used: [id number] CORONARY STENT SYSTEM SYNERGY XD MR 2.25MM 16MM DELIVERY SYS Intervention: Angioplasty was performed following stent deployment. Maximum pressure: 14 mariana. Inflation time: 6 sec. Multiple inflations Supplies Used: [id number] CATHETER BALLOON DIL NC EMERGE MR 2.5MM 12MM 2 LUM TAPER TIP Intervention: Angioplasty was performed following stent deployment. Maximum pressure: 18 mariana. Inflation time: 6 sec. Supplies Used: [id number] CATHETER BALLOON DIL NC EMERGE MR 2.5MM 12MM 2 LUM TAPER TIP Post-Intervention Lesion Assessment: The intervention was successful. The guidewire crossed the lesion. Post-intervention NAS flow is 3. Lesion had 10 mm of its length treated. The patient was therapeutically anticoagulated with intravenous bivalirudin. A 6 Slovenian EBU 3.5 guide sat fairly well. The [...] The LAD flow was excellent Supplies Used: [id number] CORONARY STENT SYSTEM SYNERGY XD MR 2.25MM 16MM DELIVERY SYS There is a 0% residual stenosis post intervention. Cardiac Protocol CAD Kristina PETERS CV CARDIAC CATH ORDERABLES * (ABNORMAL) POCT Activated Clotting Time (ACT) (12/24/2024 3:45 PM EST) Pathologist [facility] Activated Clotting Time, POC 407(A) 89 - 169 seconds Blood Blood specimen / Unknown Santosh Brady MD POINT OF CARE TEST O RDERABLES * (ABNORMAL) POCT Glucose, Fingerstick (12/24/2024 3:06 PM EST) Pathologist [facility] POC Glucose 135(H) 65 - 99 mg/dL 12/24/2024 3:13 PM EST Blood specimen / Unknown 12/24/2024 3:06 PM EST 12/24/2024 3:13 PM EST Juwan Willingham MD POINT OF CARE TEST O RDERABLES HOSPITAL LAB See Below * Heparin Assay (Anti Xa) (12/24/2024 2:03 PM EST) Anti Xa 0.39 IU/mL 12/24/2024 3:42 PM EST [facility] Comment: (NOTE) Heparin Thromboembolic/Standard/Full Dose Protocol: [...] IV HEPARIN, UNFRACTIONATED 12/24/2024 2:02 PM EST [facility] Blood Plasma specimen / Unknown 12/24/2024 2:03 PM EST 12/24/2024 3:09 PM EST Juwan Willingham MD LAB BLOOD ORDERABLES [facility] [address] [place] [address], * Troponin I, High Sensitivity (12/24/2024 2:02 PM EST) Troponin I, High Sensitivity <3 <34 ng/L 12/24/2024 3:33 PM EST [facility] Delta (HS Troponin I) NO PREVIOUS RESULT 12/24/2024 3:33 PM EST [facility] Serum specimen / Unknown 12/24/2024 2:02 PM EST 12/24/2024 3:08 PM EST Juwan Willingham MD LAB BLOOD ORDERABLES [facility] [address] [place] [address], * (ABNORMAL) Complete Blood Count, WITHOUT Differential (routine) (12/24/2024 2:02 PM EST) Pathologist [facility] White Blood Cell Count 6.0 4.0 - 11.0 Thou/uL 12/24/2024 3:12 PM EST [facility] Platelet Count 270 150 - 450 Thou/uL 12/24/2024 3:12 PM EST [facility] Hemoglobin 14.6 11.7 - 15.7 g/dL 12/24/2024 3:12 PM EST [facility] Hematocrit 43.4 35.0 - 47.0 % 12/24/2024 3:12 PM EST [facility] Red Blood Cell Count 4.66 4.00 - 5.40 Mil/uL 12/24/2024 3:12 PM EST [facility] MCV 93 80 - 100 fL 12/24/2024 3:12 PM EST [facility] MCH 31.3(H) 27.0 - 31.0 pg 12/24/2024 3:12 PM EST [facility] MCHC 33.6 30.0 - 36.0 g/dL 12/24/2024 3:12 PM EST [facility] RDW 12.2 11.5 - 14.5 % 12/24/2024 3:12 PM EST [facility] MPV 9.8 7.5 - 12.5 fL 12/24/2024 3:12 PM EST [facility] Blood Blood specimen / Unknown 12/24/2024 2:02 PM EST 12/24/2024 3:08 PM EST Juwan Willingham MD LAB BLOOD ORDERABLES [facility] [address] [place] [address], * (ABNORMAL) Basic Metabolic Panel (Routine) (12/24/2024 2:02 PM EST) Glucose 130(H) 74 - 106 mg/dL 12/24/2024 3:33 PM EST [facility] Comment:Fasting: <100 mg/dL, Non-Fasting: <200 mg/dL (ADA 2004) Blood Urea Nitrogen (BUN) 13 9 - 23 mg/dL 12/24/2024 3:33 PM EST [facility] Creatinine 0.8 0.6 - 1.0 mg/dL 12/24/2024 3:33 PM EST [facility] eGFR 80 >59 12/24/2024 3:33 PM EST [facility] Comment:CKD-EPI (2020) in mL /min/1.73 sq meters. Sodium 139 136 - 145 mmol/L 12/24/2024 3:33 PM EST [facility] Potassium 3.8 3.4 - 4.5 mmol/L 12/24/2024 3:33 PM EST [facility] Chloride 103 98 - 107 mmol/L 12/24/2024 3:33 PM EST [facility] CO2 27 20 - 31 mmol/L 12/24/2024 3:33 PM EST [facility] Anion Gap 9 5 - 15 12/24/2024 3:33 PM EST [facility] Calcium 10.2 8.7 - 10.5 mg/dL 12/24/2024 3:33 PM EST [facility] BUN/Creatinine Ratio 16 10.0 - 25.0 Ratio 12/24/2024 3:33 PM EST [facility] Blood (Plasma/Serum) 12/24/2024 2:02 PM EST 12/24/2024 3:08 PM EST Juwan Willingham MD LAB BLOOD ORDERABLES Performing Organization Address [facility]/ZIP Co de Phone Number [facility] [address] [place] [address], * ECG 12 lead (12/24/2024 1:55 PM EST) Pathologist [facility] Ventricular rate 74 BPM EKG [facility] Atrial rate 74 BPM EKG [facility] P-R interval 174 ms EKG [facility] QRS duration 90 ms EKG [facility] Q-T interval 394 ms EKG [facility] QTC calculation (Bazett) 438 ms EKG [facility] P axis 36 degrees EKG [facility] R axis 3 degrees EKG [facility] T axis 71 degrees EKG [facility] 12/24/2024 1:55 PM EST Narrative EKG [facility] - 12/24/2024 2:14 PM EST Normal sinus rhythm Nonspecific T wave abnormality Abnormal ECG No previous ECGs available Confirmed by MD Sanches Osman ([id number]) on 12/24/2024 2:14:31 PM Procedure Note Sanya Sacnhes MD - 12/24/2024 Normal sinus rhythm Nonspecific T wave abnormality Abnormal ECG No previous ECGs available Confirmed by MD Sanches Osman ([id number]) on 12/24/2024 2:14:31 PM Juwan Willingham MD ECG ORDERABLES Performing Organization Address City/[facility] Co de Phone Number [facility] documented in this encounter Visit Diagnoses [...] Action Date Dose Rate Site sodium chloride 0.9% (NS) infusion 100 mL/hr, Intravenous, Continuous, Starting on Mon12/24/24 at 1530 Rate/Dose Change 12/24/2024 3:06 PM EST 100 mL/hr 100 mL/hr sodium chloride 0.9% (NS) infusion 5 mL/kg/hr ? 77.4 kg (387 mL/hr), Intravenous, Continuous, Starting on Mon12/24/24 at 1630, For 4 hours, Do not modify orders without contacting interventional cardiology attending and/or fellow. New Bag 12/24/2024 5:49 PM EST 5 mL/kg/hr 387 mL/hr acetaminophen (TYLENOL) tablet 650 mg 650 [...] Given 12/24/2024 8:19 PM EST 40 mg busPIRone (BUSPAR) tablet 5 mg 5 [...] unable to swallow. See Hypoglycemia Management guideline. diphenhydrAMINE (BENADRYL) capsule 25 mg 25 mg, Oral, Once, On Mon12/24/24 at 1530, For 1 dose Given 12/24/2024 3:03 PM EST 25 mg docusate sodium (COLACE) capsule 100 mg 100 mg, Oral, Every 12 hours PRN, constipation, Starting on Mon12/24/24 at 1333 glucagon (GLUCAGEN) injection 1 mg 1 mg, [...] 40 % = 15 grams of glucose. heparin (porcine) IV infusion 25,000 units in 500 mL 0.45% NaCl (premix) 18.576 mL/hr (12 Units/kg/hr ? 77.4 kg), [...] = 50 units/mL, Indication for Anticoagulation: Acute AK New Bag 12/24/2024 2:25 PM EST 12 Units/kg/hr 18.576 mL/hr Left Arm insulin lispro (HumaLOG/ADMELOG) 100 units/mL injection 1-6 [...] 6:37 PM EST 1 Units Left Arm ipratropium-albuterol (DUONEB) 0.5-2.5 mg/3 mL nebulizer solution 3 mL 3 mL, Nebulization, Every 6 hours PRN, wheezing, shortness of breath, Starting on Mon12/24/24 at 1333, Albuterol expressed in base strength. Albuterol sulfate 3 mg = albuterol (base) 2.5 mg. metoPROLOL TARTRATE (LOPRESSOR) tablet 25 mg 25 mg, Oral, Every 12 hours scheduled, First dose on Mon12/24/24 at 2100, Hold for HR less than 45 bpm and/or SBP less than 90 mmHg. Notify provider if a dose is held. Given 12/25/2024 9:01 AM EST 25 mg ondansetron (ZOFRAN-ODT) disintegrating tablet 4 mg 4 mg, Oral, Every 6 hours PRN, nausea, vomiting, Starting on Mon12/24/24 at 1333, Using dry hands, place tablet on tongue and allow to dissolve. Swallow with saliva. perflutren lipid microsphere (DEFINITY) 1.3 mL in sodium chloride (NS) 0.9 % 10 mL 0.5-8 mL, Intravenous, Once in imaging, other, Starting on Mon12/25/24 at 0838, For 1 dose, Document total dose administered per policy Given 12/25/2024 8:42 AM EST 3 mL documented in this encounter Active and Recently Administered Medications Times are shown in EST. Scheduled Medication Order 12/23/2024 12/24/2024 12/25/2024 amLODIPine (NORVASC) tablet 10 mg 10 mg, Oral, Daily, First dose on Mon12/25/24 at 0900, Hold for SBP less than 100 mmHg. Notify provider if a dose is held. 900 (Given - Provid er: Yuki Wu RN) [...] Nightly, First dose on Mon12/24/24 at 2100 2019 (Given - Provider: Marcy Khan, CHERI) busPIRone (BUSPAR) tablet 5 mg 5 mg, Oral, 2 times daily, First dose on Mon12/24/24 at 2100 181 (JAN Hold - Provider: Automatic Transfer Provider - Reason: Unreviewed Transfer Orders)1810 (JAN Unhold - Provider: User [employer])2018 (Given - Provider: Marcy Khan RN) 901 (Given - Provider: Yuki Wu RN) clopidogrel (PLAVIX) tablet 75 mg 75 mg, Oral, Daily, First dose on Mon12/25/24 at 0900 09 (Given - Provid er: Yuki Wu [...] 340, administer 6 units AND notify provider 1810 (JAN Hold - Provider: Automatic Transfer Provider - Reason: Unreviewed Transfer Orders)1810 (MAR Unhold - Provider: User [employer])183 (Given - Provider: Yuki Wu RN) 0749 (Not Given - Provider: Yuki Wu RN - Reason: Dose held per order parameters)1200 (Due) metoPROLOL TARTRATE (LOPRESSOR) tablet 25 mg 25 mg, Oral, Every 12 hours scheduled, First dose on Mon12/24/24 at 2100, Hold for HR less than 45 bpm and/or SBP less than 90 mmHg. Notify provider if a dose is held. 2019 (Given - Provider: Marcy Khan, RN) 900 (Given - Provider: Yuki Wu, CHERI) Continuous Medication Order 12/23/2024 12/24/2024 12/25/2024 sodium chloride 0.9% (NS) infusion (CANCELED) 100 mL/hr, Intravenous, Continuous, Starting on Mon12/24/24 at 1530 1506 (Rate/Dose Change - Provider: Oswaldo Aragon, CHERI)1614 (Stopped - Provider: Oswaldo Aragon RN) sodium chloride 0.9% (NS) infusion (CANCELED) 5 mL/kg/hr ? 77.4 kg (387 mL/hr), Intravenous, Continuous, Starting on Mon12/24/24 at 1630, For 4 hours, Do not modify orders without contacting interventional cardiology attending and/or fellow. 161 (Rate/Dose Change - Provider: Oswaldo Aragon, CHERI)174 (New Bag - Provider: Lilliam Ashraf RN)2015 [...] = 50 units/mL, Indication for Anticoagulation: Acute AK 1425 (New Bag - Provider: Yuki Wu [...] (Cath) 1534 (New Bag - Provider: Talisha Galvan, CHERI)1800 (Stopped - Provider: Lilliam Ashraf RN) bivalirudin (ANGIOMAX) 5 mg/mL IV bolus from bag via smart pump (CANCELED) As needed, Starting on Mon12/24/24 at 1534, Intra-Procedure (Cath) 1534 (Given - Provider: Talisha Galvan, CHERI) dextrose 50 % solution 12.5 g(Linked Group 1) 12.5 g, Intravenous, Every 15 min PRN, low blood sugar, between 50 and 69 mg/dL, Starting on Mon12/24/24 at 1456, For patient with IV access who is NPO or unable to swallow. See Hypoglycemia Management guideline. 1810 ([facility] Hold - Provider: Automatic Transfer Provider - Reason: Unreviewed Transfer Orders)1810 ([facility] Unhold - Provider: User [employer]) dextrose 50 % solution 25 g(Linked Group 1) 25 g, Intravenous, Every 15 min PRN, low blood sugar, less than 50 mg/dL, Starting on Mon12/24/24 at 1456, For patient with IV access who is NPO or unable to swallow. See Hypoglycemia Management guideline. 1810 ([facility] Hold - Provider: Automatic Transfer Provider - Reason: Unreviewed Transfer Orders)1810 ([facility] Unhold - Provider: User Epic) docusate sodium (COLACE) capsule 100 mg 100 mg, Oral, Every 12 hours PRN, constipation, Starting on Mon12/24/24 at 1333 1451 ([facility] Hold - Provider: Automatic Transfer Provider - Reason: Unreviewed Transfer Orders)1810 ([facility] Unhold - Provider: User Epic) fentaNYL (SUBLIMAZE) 100 mcg/2 mL injection (CANCELED) As needed, Starting on Mon12/24/24 at 1512, Intra-Procedure (Cath) 1512 (Given - Provider: Talisha Galvan RN)1514 (Given - Provider: Talisha Galvan, CHERI)1522 (Given - Provider: Talisha Galvan, CHERI)1536 (Given - Provider: Talisha Galvan, CHERI) glucagon (GLUCAGEN) injection 1 mg(Linked Group 1) [...] 1 mL sterile water for injection. 1810 ([facility] Hold - Provider: Automatic Transfer Provider - Reason: Unreviewed Transfer Orders)1810 ([facility] Unhold - Provider: User Epic) glucose (GLUTOSE [...] % = 15 grams of glucose. 1810 ([facility] Hold - Provider: Automatic Transfer Provider - Reason: Unreviewed Transfer Orders)1810 ([facility] Unhold - Provider: User Epic) glucose (GLUTOSE [...] % = 15 grams of glucose. 1810 ([facility] Hold - Provider: Automatic Transfer Provider - Reason: Unreviewed Transfer Orders)1810 ([facility] Unhold - Provider: User Epic) iohexol (OMNIPAQUE) [...] 3 mg = albuterol (base) 2.5 mg. 145 ([facility] Hold - Provider: Automatic Transfer Provider - Reason: Unreviewed Transfer Orders)1810 ([facility] Unhold - Provider: User Epic) lidocaine (XYLOCAINE) 2 % injection (CANCELED) As needed, Starting on Mon12/24/24 at 1520, Intra-Procedure (Cath) 1520 (Given - Provider: Santosh Brady MD) midazolam (VERSED) 2 mg/2 mL injection (CANCELED) As needed, Starting on Mon12/24/24 at 1512, Intra-Procedure (Cath) 1512 (Given - Provider: Talisha Galvan RN)1514 (Given - Provider: Talisha Galvan RN)1515 (Given - Provider: Talisha Galavn RN)1521 (Given - Provider: Talisha Galvan RN) [...] Santosh Brady MD)1541 (Given - Provider: Santosh Bardy MD) ondansetron (ZOFRAN) injection 4 mg 4 mg, Intravenous, Every 6 hours PRN, nausea, vomiting, Starting on Mon12/24/24 at 1613 ondansetron (ZOFRAN-ODT) disintegrating tablet 4 mg 4 mg, Oral, Every 6 hours PRN, nausea, vomiting, Starting on Mon12/24/24 at 1333, Using dry hands, place tablet on tongue and allow to dissolve. Swallow with saliva. 1451 ([facility] Hold - Provider: Automatic Transfer Provider - Reason: Unreviewed Transfer Orders)1811 ([facility] Unhold - Provider: User Epic) perflutren lipid [...] injection. documented in this encounter Care Teams Marriage And Family Teacher Relationship Specialty Start Date End Date Ngoc Ordonez APRN [address] [place] [address] [phone] PCP - General Family Medicine 12/24/24 documented as of this encounter
--- OUTSIDE RECORDS SUMMARY | 2025-01-08 13:58 | XMS_ITS | Encounter Summary ---
Author Organization [facility] Address [address] [place] [address] Care Team Providers Care Label Rewinder Name Role Phone Ngoc Ordonez APRN Primary Care Provider + Beau Hays MD Unavailable [phone] Encounter Details Date Type Department Care Team (Latest Contact Info) Description 01/07/2025 Travel Social History Tobacco Use Types Packs/Day Years Used Date Smoking Tobacco: Never Assessed [facility] Utilities Answer Date Recorded In the past 12 months has th e [employer], gas, oil, or water deltamethod threatened to shut off services in your [...] any time in the past 12 m [facility], were you homeless or living in a fpc (including now)? No 12/25/2024 Sex and Gender Information Value Date Recorded Sex Assigned at Female 12/24/2024 1:09 PM EST Gender Identity Female 12/24/2024 1:09 PM EST Sexual Orientation Heterosexual (straight) 12/24 1:09 PM EST documented as of this encounter Plan of Treatment Not on file documented as of this encounter Visit Diagnoses Not on filedocumented in this encounter Care Teams Label Rewinder Relationship Specialty Start Date End Date Ngoc Ordonez APRN [address] [place] [phone] PCP - General Family Medicine 12/24/24 Beau Hays MD [address] [place] [address] Primary Director Biomedical Engineering Cardiovascular Disease 01/07/25 documented as of this encounter
== END 2025-01-08 14:07 | disposition home or self-care (01) ==
PROVIDERS: Visit Provider Nurse Practitioner Family
DX: I15.2 Hypertension secondary to endocrine disorders (principal); E11.8 Type 2 diabetes mellitus with unspecified complications; Z09 Encounter for follow-up examination after completed treatment for conditions other than malignant neoplasm; I25.10 Atherosclerotic heart disease of native coronary artery without angina pectoris; Z95.5 Presence of coronary angioplasty implant and graft; D50.9 Iron deficiency anemia, unspecified; K59.01 Slow transit constipation; K76.0 Fatty (change of) liver, not elsewhere classified; E83.52 Hypercalcemia; R74.8 Abnormal levels of other serum enzymes; Z78.9 Other specified health status; Z71.89 Other specified counseling

== ENCOUNTER 2025-01-08 12:31 | Outpatient (REF) | payer BC, SELFPAY ==
[2025-01-08 14:21] LABS: Hematocrit 40.7 % (37.0-47.0); Hemoglobin 13.8 g/dl (12.0-16.0); Mean Corpuscular HGB Conc 33.9 g/dl (31.0-35.0); Mean Corpuscular Hemoglobin 31.7 pg (27.0-33.0); Mean Corpuscular Volume 93.3 fL (80.0-98.0); Mean Platelet Volume 9.4 fL (9.4-12.3); Platelet Count 295 X10*3/uL (160-400); Red Blood Count 4.36 X10*6/uL (4.20-5.50); White Blood Count 7.1 X10*3/uL (4.8-10.8)
[2025-01-08 14:49] LABS: Alanine Aminotransferase 73 U/L (0-31); Albumin Level 4.4 g/dL (3.5-5.0); Alkaline Phosphatase 180 U/L (39-117); Anion Gap 11 (12-20); Aspartate Amino Transferase 61 U/L (5-31); Bilirubin Total 0.3 mg/dL (0.0-1.0); Blood Urea Nitrogen 12 mg/dL (9-16); Calcium 9.7 mg/dL (8.4-10.2); Carbon Dioxide 27 mmol/L (22-29); Chloride 104 mmol/L (96-108); Estimated Glomerular Filt Rate > 60; Glucose Random 117 mg/dL (60-115); Lipase 36 U/L (8-78); Potassium 4.1 mmol/L (3.3-5.1); Sodium 138 mmol/L (135-145); Total Protein 7.8 g/dL (6.5-8.0)
--- OUTSIDE RECORDS SUMMARY | 2025-01-08 14:51 | XMS_ITS | Encounter Summary ---
Author Organization [facility] Address [address] [place] [address] Care Team Providers Care Field Nurse Case Manager Name Role Phone Ngoc Ordonez APRN Primary Care Provider + Beau Hays MD Unavailable [phone] Encounter Details Date Type Department Care Team (Latest Contact Info) Description 01/07/2025 Travel Social History Tobacco Use Types Packs/Day Years Used Date Smoking Tobacco: Never Assessed [facility] Utilities Answer Date Recorded In the past 12 months has th e [employer], gas, oil, or water [employer] threatened to shut off services in your [...] any time in the past 12 m [facility], were you homeless or living in a prison (including now)? No 12/25/2024 Sex and Gender Information Value Date Recorded Sex Assigned at Female 12/24/2024 1:09 PM EST Gender Identity Female 12/24/2024 1:09 PM EST Sexual Orientation Heterosexual (straight) 12/24 1:09 PM EST documented as of this encounter Plan of Treatment Not on file documented as of this encounter Visit Diagnoses Not on filedocumented in this encounter Care Teams Field Nurse Case Manager Relationship Specialty Start Date End Date Ngoc Ordonez APRN [address] [place] [phone] PCP - General Family Medicine 12/24/24 Beau Hays MD [address] [place] [address] Primary Machine Clipper Cardiovascular Disease 01/07/25 documented as of this encounter
--- OUTSIDE RECORDS SUMMARY | 2025-01-08 14:51 | XMS_ITS | Encounter Summary ---
Author Organization Formerly [facility] Address [address] [place] [address] Care Team Providers Care Binman Name Role Phone Ngoc Ordonez APRN Primary Care Provider + Reason for Visit * Auth/Cert Specialty Diagnoses / Procedures Referred By Rosa t Referred To Contact Diagnoses abnormal stress Procedures . Referral ID Status Reason Start Date Expiration Date Visits Re quested Visits Authorized [id number] 1 1 Encounter Details Date Type Department Care Team (Late st Contact Info) Description 12/24/2024 3:00 PM EST - 12/24/2024 3:58 PM EST Surgery [facility] [place] [facility] - Cardiac Catheterization Laboratory [address] [place] [address] Santosh Brady MD [address] [place] [address] [address] [place] [address] CORONARY ANGIO W/LV Social History Tobacco Use Types Packs/Day Years Used Date Smoking Tobacco: Never Assessed [facility] Utilities Answer Date Recorded In the past 12 months has [employer] gas, oil, or water [employer] threatened to shut off services in your [...] any time in the past 12 m [facility], were you homeless or living in a fdc (including now)? No 12/25/2024 Sex and Gender [...] Case IDs Date Procedure Surgeon Location Status [id number] 12/24/24 CORONARY ANGIO W/LV Santosh Brady MD SV CIRCULAR DISTRIBUTOR Comp Consultations: Cardiology Discharge Medications Discharge Medications [...] MG tablet Commonly known as: CATAPRES Followup: [facility] Cardiac Rehab of [address] [address] Ngoc Ordonez, SNOWSPORT INSTRUCTOR [address] [facility] [address] Code Status: Full Code HPI and Hospital Course 69-year-old female with history of hypertension, fatty liver disease, diabetes, hyperlipidemia presented from [facility] for unstable angina S/p C [...] states that she has cardiology appointment in [place] however, the appointment isnot until late February. [...] to the cardiac rehab department from your radiographer mammographer. [facility] [place] Referral is included in your cardiac rehab folder. The Cardiac rehab staff will schedule an initial assessment with you before starting the exercise program. When: Depending your diagnosis, when you can start cardiac rehab will vary: Open Heart Surgery - 4-6 weeks after surgery Angioplasty / Stents - 1-2 weeks after the procedure Heart Attack / Transplant- At radiographer mammographer discretion Heart Failure - 6 weeks after discharge from hospital If you have any further questions or would like more information, please contact [facility] [address] [place] [address] [place]: [place] [address] [facility] - CARDIAC REHAB [address] [place] [id number] [place] [address] [facility] Address: [address] [place] [address] [place] [employer] for [employer]iac Rehab [...] to the cardiac rehab department from your radiographer mammographer. [facility] [place] Referral is [...] procedure Heart Attack / Transplant - At radiographer mammographer discretion Heart Failure - 6 weeks after discharge from hospital Follow these instructions at home: Take [id number] and prescription medicines only as told by [...] you have with your health care provider. [facility] [address] [place] [address] [facility] - Cardiac Rehab [address] [place] [address] [facility] [address] Document Released: 05/12/2006 Document Revised: 03/09/2015 Document Reviewed: 03/26/2014 ExitCare?? Patient Information ??2015 [employer]. This information is not intended to [...] disease, cervical fusions is a transfer from [facility] for unstable angina. Today, patient [...] numbness or tingling in hand, equal b/l technical sales advisor strength. NSTEMI s/p KELLEN to first diagonal - asa - plavix - atorvastatin 40 mg daily - metoprolol succinate 25 mg - follow up with OP radiographer mammographer within 1-2 weeks of DC - scheduled January [address] Hays - pt will then follow up with her radiographer mammographer in [place] - telemetry - Mg>2, K>4 - EKG [...] ANGIO W/LV; Surgeon: Santosh Brady MD; Location: CIRCULAR DISTRIBUTOR; Service: Cardiovascular; Laterality: N/A; CC KELLEN PLACEMENT, 1ST ARTERY N/A 12/24/2024 Procedure: KELLEN PLACEMENT, 1ST ARTERY; Surgeon: Santosh Brady MD; Location: CIRCULAR DISTRIBUTOR; Service: Cardiovascular; Laterality: N/A; No family history [...] from the original result were not included. [facility] Heart [facility] [place] [facility] - Cardiac Catheterization Laboratory PATIENT DEMOGRAPHIC INFORMATION Name: Bridgett Jernigan : 1955 69 y.o. Sex: female Gender: female Procedure Date: 12/24/2024 Referring Physician: Darian Valente PCP: No primary care provider on file. Procedure(s): Procedures: * CORONARY ANGIO W/LV * KELLEN PLACEMENT, 1ST ARTERY Indication: Exhaust And Muffler Repairer: Santosh Brady MD Pega Developer(s): Vivek Kenny and None Anginal Classification: [...] unstable angina, abnormal stress test transferred from [facility]. ACCESS Access: Right Radial Artery Sheath(s): 6Fr Cameron Sheath Hemostasis Method: TR Band DIAGNOSTIC FINDINGS [...] mariana. Inflation time: 8 sec. Supplies used: [id number] CORONARY STENT SYSTEM SYNERGY XD MR 2.25MM 16MM DELIVERY SYS Intervention Angioplasty was performed following stent deployment. Maximum pressure: 14 mairana. Inflation time: 6 sec. Multiple inflations Supplies used: [id number] CATHETER BALLOON DIL NC EMERGE MR 2.5MM 12MM 2 LUMTAPER TIP Intervention Angioplasty was performed following stent deployment. Maximum pressure: 18 mariana. Inflation time: 6 sec. Supplies used: [id number] CATHETER BALLOON DIL NC EMERGE MR 2.5MM 12MM 2 LUM TAPER TIP Post-Intervention Lesion Assessment The intervention was successful. The guidewirecrossed the lesion. Post-intervention NAS flow is 3. Lesion had 10 mm of its length treated. The patient was therapeutically anticoagulated with intravenous bivalirudin. A 6 [place] Islander EBU 3.5 guide satfairly well. The lesion [...] The LAD flow was excellent Supplies used: [id number] CORONARY STENT SYSTEM SYNERGY XD MR 2.25MM [...] this patient that I request from a [facility] PA/SNOWSPORT INSTRUCTOR/fellow/staff member. Santosh Brady MD [facility] [place] 12/24/2024 4:04 PM 24 hour telemetry: Normal [...] have discussed the case with the Physician Pega Developer/SNOWSPORT INSTRUCTOR and we have formulated the plan. 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 A + O x4. Vital signs stable. [...] Patient arrived on unit @ 1440 from [facility] via stretcher. A + O [...] disease, cervical fusions is a transfer from [facility] for unstable angina. Today, patient [...] for LHC today. Per patient's record from [facility] H&H 14.3/41.5, platelets 232, potassium [...] -EKG for chest pain -Follow-up with outpatient radiographer mammographer within 1 week of discharge Risk, benefits [...] disease, cervical fusions is a transfer from [facility] for unstable angina. Over the [...] or drug use. Patient just moved from [place] to [facility]. [place] seen by her radiographer mammographer in [place]. Review of systems: Review of Systems Constitutional: [...] 12:36 PM EST PATIENT DISCHARGED 12/25/2024 Per [facility] General Statutes Sec: 38a-226c: Notification of determination shall be mailed or otherwise communicated within 2 business days of receipt of all information necessary to complete the review. Please fax authorization determination to [phone] or call [phone]. * Case Coordination-Payor Communication - Romero Heck - 12/25/2024 12:36 PM EST 2nd request: Please follow-up with the Clinical Resource Management Department via fax ([phone]) or phone ([phone]) with status of authorization ELIECER. Thank you. [...] will follow up with own cardio in [facility]. No services needed. Patient in agreement. Discharged [...] Does the Patient Have a CT DNR [place] Bracelet or State DNR Form?: no Clinical [...] pt's husbands phone kept going straight to [facility]. Angiomax stopped per orders at 1800. Plan for TR band to be removed at 2000. Report called and given to Neisha ALONZO. Pt transported on monitor with RN assist. Handoff completed at [facility]. * Case Coordination-Payor Communication - [...] disease, cervical fusions is a transfer from [facility] for unstable angina. Today, patient [...] stress test so will send patient for [facility] today. Per patient's record from [facility] H&H 14.3/41.5, platelets 232, potassium [...] nor have tamponade physiology. Patient consented for [facility]. Vitals: Date/Time Temp Pulse Resp BP [...] ECGs available Confirmed by MD Myron, Sanya ([id number]) on 12/24/2024 2:14:31 PM Imaging Studies Echocardiogram [...] A1C 6.5(H) <5.7 % 12/25/2024 5:38 PM [facility] Comment: A1c% ? Interpretation 5.7 - 6.0 ?Increase risk of diabetes 6.1 - 6.4 ?Higher risk of diabetes > or = 6.5 ?? Consistent with diabetes Diabetes Care, 33(Supp 1):S1-S61, 2010 Estimated Average Glucose 140 mg/dL 12/25/2024 5:38 PM [facility] Blood Blood specimen / Unknown 12/25/2024 8:00 AM EST 12/25/2024 8:12 AM EST Keenan Arreguin MD LAB BLOOD ORDERABLES Performing Organization Address City/[facility]/ZIP Co de Phone Number [address] [address], [address] [address] * (ABNORMAL) POCT Glucose, Fingerstick (12/25/2024 7:39 AM EST) POC Glucose 136(H) 65 - 99 mg/dL 12/25/2024 7:46 AM EST Comment:Notified RN Blood specimen / Unknown 12/25/2024 7:39 AM EST 12/25/2024 7:46 AM EST Keenan Arreguin MD POINT OF CARE TEST O RDERABLES Performing Organization Address City/[facility]/ZIP Co de Phone Number HOSPITAL LAB See Below * (ABNORMAL) LIPID PANEL (12/25/2024 5:33 AM EST) Cholesterol, Total 168 <200 mg/dL 2024 8:24 AM EST [facility] Triglycerides 135 <150 mg/dL 12/25/2024 8:24 AM EST [facility] Cholesterol, HDL 43(L) >60 mg/dL 12/25/19 8:24 AM EST [facility] Estimated LDL 98 <130 mg/dL 12/25/2024 8:24 AM EST [facility] Comment: NCEP Guidelines: ?< 100 mg/dL ??Optimal 100 - 129 mg/dL ??Near Optimal/Above Optimal 130 - 159 mg/dL ??Borderline High 160 - 189 mg/dL ??High ??>/= 190 mg/dL ??Very High Cholesterol/HDL Ratio 3.9 0.0 - 5.0 Ratio 12/25/2024 8:24 AM EST [facility] Comment: Relative Risk ? Ratio - Male ? Ratio - Female ?0.5 ?3.4 ?3.3 ?1.0 ?5.0 ?4.4 ?2.0 ?9.6 ?7.1 ?3.0 ? 23.4 ? 11.0 Plasma/Serum 12/25/2024 5:33 AM EST 12/25/2024 6:08 AM EST Kristina PETERS LAB BLOOD ORDERABLES Performing Organization Address [facility] de Phone Number [facility] [address] [place] [address], * Protime-INR (12/25/2024 5:33 AM EST) Anticoagulant IV HEPARIN, UNFRACTIONATED 12/24/2024 11:01 PM EST [facility] Prothrombin Time (PT) 12.1 10.0 - 13.5 seconds 12/25/2024 6:19 AM EST [facility] INR 1.1 12/25/2024 6:19 AM EST [facility] Comment:INR Therapeutic Rang es: Standard dose anticoagulant 2.0 to 3.0, High dose anticoagulant 2.5-3.5. Blood Plasma specimen / Unknown 12/25/2024 5:33 AM EST 12/25/2024 6:08 AM EST Easton Aguirre PA-C LAB BLOOD ORDERABLES Performing Organization Address [facility] [place] [address], * Partial Thromboplastin Time (PTT) (12/25/2024 5:33 AM EST) Anticoagulant IV HEPARIN, UNFRACTIONATED 12/24/2024 11:01 PM EST [facility] Partial Thromboplastin Time (PTT) 33 26 - 37 seconds 12/25/2024 6:19 AM EST [facility] Blood Plasma specimen / Unknown 12/25/2024 5:33 AM EST 12/25/2024 6:08 AM EST Easton Aguirre PA-C LAB BLOOD ORDERABLES [facility] [address] [place] [address], * (ABNORMAL) Comprehensive Metabolic Panel (12/25/2024 5:33 AM EST) Glucose 131(H) 74 - 106 mg/dL 12/25/2024 6:35 AM EST [facility] Comment:Fasting: <100 mg/dL, Non-Fasting: <200 mg/dL (ADA 2005) Blood Urea Nitrogen (BUN) 10 9 - 23 mg/dL 12/25/2024 6:35 AM EST [facility] Creatinine 0.9 0.6 - 1.0 mg/dL 12/25/2024 6:35 AM EST [facility] eGFR 69 >59 12/25/2024 6:35 AM EST [facility] Comment:CKD-EPI (2020) in mL /min/1.73 sq meters. Sodium 139 136 - 145 mmol/L 12/25/2024 6:35 AM EST [facility] Potassium 4.4 3.4 - 4.5 mmol/L 12/25/2024 6:35 AM EST [facility] Chloride 107 98 - 107 mmol/L 12/25/2024 6:35 AM EST [facility] CO2 24 20 - 31 mmol/L 12/25/2024 6:35 AM EST [facility] Calcium 10.1 8.7 - 10.5 mg/dL 12/25/2024 6:35 AM EST [facility] Alkaline Phosphatase 125(H) 32 - 122 U/L 12/25/2024 6:35 AM EST [facility] Aspartate Aminotrans (AST) 79(H) <34 U/L 12/25/2024 6:35 AM EST [facility] Alanine Aminotrans (ALT) 98(H) 7 - 35 U/L 12/25/2024 6:35 AM EST [facility] Bilirubin, Total 0.6 0.3 - 1.2 mg/dL 12/25/2024 6:35 AM EST [facility] Protein, Total 7.5 5.7 - 8.2 g/dL 12/25/2024 6:35 AM EST [facility] Albumin 4.6 3.4 - 4.8 g/dL 12/25/2024 6:35 AM [facility] BUN/Creatinine Ratio 11 10.0 - 25.0 Ratio 12/25/2024 6:35 AM EST [facility] Globulin 2.9 1.5 - 3.9 g/dL 12/25/2024 6:35 AM [facility] Albumin/Globulin Ratio 1.6 1.5 - 2.5 Ratio 12/25/2024 6:35 AM EST [facility] Anion Gap 8 5 - 15 12/25/2024 6:35 AM [facility] Blood (Plasma/Serum) 12/25/2024 5:33 AM EST 12/25/2024 6:08 AM EST Kristina PETERS LAB BLOOD ORDERABLES [facility] [address] [place] [address], * (ABNORMAL) Complete Blood Count, with Differential (12/25/2024 5:33 AM EST) White Blood Cell Count 5.1 4.0 - 11.0 Thou/uL 12/25/2024 6:12 AM [facility] Platelet Count 245 150 - 450 Thou/uL 12/25/2024 6:12 AM [facility] Hemoglobin 14.2 11.7 - 15.7 g/dL 12/25/2024 6:12 AM [facility] Hematocrit 42.9 35.0 - 47.0 % 12/25/2024 6:12 AM [facility] Red Blood Cell Count 4.57 4.00 - 5.40 Mil/uL 12/25/2024 6:12 AM [facility] MCV 94 80 - 100 fL 12/25/2024 6:12 AM [facility] MCH 31.1(H) 27.0 - 31.0 pg 12/25/2024 6:12 AM [facility] MCHC 33.1 30.0 - 36.0 g/dL 12/25/2024 6:12 AM [facility] RDW 12.2 11.5 - 14.5 % 12/25/2024 6:12 AM [facility] MPV 9.4 7.5 - 12.5 fL 12/25/2024 6:12 AM [facility] Neutrophils Auto 53.0 % 12/25/19 6:12 AM [facility] Immature Granulocytes 0.2 % 12/25/2024 6:12 AM [facility] Lymphocytes Auto 29.1 % 12/25/19 6:12 AM [facility] Monocytes Auto 10.8 % 12/25/2024 6:12 AM [facility] Eosinophils Auto 4.7 % 12/25/19 6:12 AM [facility] Basophils Auto 2.2 % 12/25/2024 6:12 AM [facility] Abs Neutrophils Auto 2.69 2.00 - 7.50 Thou/uL 12/25/2024 6:12 AM [facility] Abs Immature Granulocytes 0.01 0.00 - 0.10 Thou/uL 12/25/2024 6:12 AM EST [facility] Abs Lymphocytes Auto 1.48(L) 1.50 - 4.50 Thou/uL 12/25/2024 6:12 AM EST [facility] Abs Monocytes Auto 0.55 0.20 - 1.50 Thou/uL 12/25/2024 6:12 AM EST [facility] Abs Eosinophils Auto 0.24 0.00 - 0.70 Thou/uL 12/25/2024 6:12 AM EST [facility] Abs Basophils Auto 0.11 0.00 - 0.20 Thou/uL 12/25/2024 6:12 AM EST [facility] Blood Blood specimen / Unknown 12/25/2024 5:33 AM EST 12/25/2024 6:08 AM EST Kristina PETERS LAB BLOOD ORDERABLES Performing Organization Address City/[facility]/[place] [address], * Troponin I, High Sensitivity (Once) (12/24/2024 10:01 PM EST) Pathologist [facility] Troponin I, High Sensitivity 29 <34 ng/L 12/24/2024 10:51 PM EST [facility] Delta (HS Troponin I) Unable to calculate result 12/24/2024 10:51 PM EST [facility] Blood Serum specimen / Unknown 12/24/2024 10:01 PM EST 12/24/2024 10:11 PM EST Kristina PETERS [place] [address], * (ABNORMAL) POCT Glucose, Fingerstick (12/24/2024 8:23 PM EST) POC Glucose 208(H) 65 - 99 mg/dL 12/24/2024 8:30 PM EST Comment:Notified RN Blood specimen / Unknown 12/24/2024 8:23 PM EST 12/24/2024 8:30 PM EST Juwan Willingham MD POINT OF CARE TEST O RDERABLES Performing Organization Address City/[facility]/ZIP Co de Phone Number HOSPITAL LAB See Below * Troponin I, High Sensitivity (Once) (12/24/2024 6:23 PM EST) Troponin I, High Sensitivity 5 <34 ng/L 12/24/2024 7:20 PM EST [facility] Delta (HS Troponin I) Unable to calculate result 12/24/2024 7:20 PM EST [facility] Blood Serum specimen / Unknown 12/24/2024 6:23 PM EST 12/24/2024 6:25 PM EST Kristina PETERS LAB BLOOD ORDERABLES Performing Organization Address [facility] Co de Phone Number [facility] [address] [place] [address], * (ABNORMAL) POCT Glucose, Fingerstick (12/24/2024 6:15 PM EST) POC Glucose 150(H) 65 - 99 mg/dL 12/24/2024 6:23 PM EST Comment:Notified RN Blood specimen / Unknown 12/24/2024 6:15 PM EST 12/24/2024 6:23 PM EST Juwan Willingham MD POINT OF CARE TEST O RDERABLES HOSPITAL LAB See Below * ECG 12 lead (12/24/2024 4:09 PM EST) Ventricular rate 68 BPM EKG [facility] Atrial rate 68 BPM EKG [facility] P-R interval 180 ms EKG [facility] QRS duration 90 ms EKG [facility] Q-T interval 420 ms EKG [facility] QTC calculation (Bazett) 447 ms EKG [facility] P axis 34 degrees EKG [facility] R axis 10 degrees EKG [facility] T axis 41 degrees EKG [facility] 12/24/2024 4:09 PM EST Narrative EKG [facility] - 12/24/2024 4:23 PM EST Normal sinus rhythm Cannot rule out Anterior infarct , age undetermined Abnormal ECG When compared with ECG of 24-Dec-2024 13:55, No significant change was found Confirmed by MD Hays Venu ([id number]) on 12/24/2024 4:23:39 PM Procedure Note Beau Hays MD - 12/24/2024 Normal sinus rhythm Cannot rule out Anterior infarct , age undetermined Abnormal ECG When compared with ECG of 24-Dec-2024 13:55, No significant change was found Confirmed by MD Hays Venu ([id number]) on 12/24/2024 4:23:39 PM Juwan Willingham MD ECG ORDERABLES EKG [facility] * CC CORONARY ANGIO W/LV, CC KELLEN PLACEMENT, 1ST ARTERY (12/24/2024 3:56 PM EST) Anatomical Region Laterality Modality X-Ray Angiograph y Narrative 12/24/2024 4:05 PM EST Table formatting from the original result was not included. Images from the original result were not included. [facility] Heart [facility] [place] [facility] - Cardiac Catheterization Laboratory PATIENT DEMOGRAPHIC INFORMATION Name: Bridgett Jernigan : 1955 69 y.o. Sex: female Gender: female Procedure Date: 12/24/2024 Referring Physician: Darian Valente PCP: No primary care provider on file. Procedure(s): Procedures: ??* CORONARY ANGIO W/LV ??* KELLEN PLACEMENT, 1ST ARTERY Indication: ? Exhaust And Muffler Repairer: Santosh Brady MD Pega Developer(s): Vivek Kenny and None Anginal Classification: [...] unstable angina, abnormal stress test transferred from [facility]. ACCESS Access: Right Radial Artery Sheath(s): 6Fr Cameron Sheath Hemostasis Method: TR Band DIAGNOSTIC FINDINGS [...] mariana. Inflation time: 8 sec. Supplies used: [id number] CORONARY STENT SYSTEM SYNERGY XD MR 2.25MM 16MM DELIVERY SYS Intervention Angioplasty ??was performed following stent deployment. Maximum pressure: 14 mariana. Inflation time: 6 sec. Multiple inflations Supplies used: [id number] CATHETER BALLOON DIL NC EMERGE MR 2.5MM 12MM 2 LUM TAPER TIP Intervention Angioplasty ??was performed following stent deployment. Maximum pressure: 18 mariana. Inflation time: 6 sec. Supplies used: [id number] CATHETER BALLOON DIL NC EMERGE MR 2.5MM 12MM 2 LUM TAPER TIP Post-Intervention Lesion Assessment The intervention was successful. The guidewire crossed the lesion. Post-intervention NAS flow is 3. Lesion had 10 mm of its length treated. The patient was therapeutically anticoagulated with intravenous bivalirudin. ??A 6 [place] Islander EBU 3.5 guide sat fairly well. ??The [...] ??The LAD flow was excellent Supplies used: [id number] CORONARY STENT SYSTEM SYNERGY XD MR 2.25MM [...] this patient that I request from a [facility] PA/SNOWSPORT INSTRUCTOR/fellow/staff member. Santosh Brady MD [facility] [place] 12/24/2024 ??4:04 PM Coronary Findings Diagnostic Dominance: [...] mariana. Inflation time: 8 sec. Supplies Used: [id number] CORONARY STENT SYSTEM SYNERGY XD MR 2.25MM 16MM DELIVERY SYS Intervention: Angioplasty was performed following stent deployment. Maximum pressure: 14 mariana. Inflation time: 6 sec. Multiple inflations Supplies Used: [id number] CATHETER BALLOON DIL NC EMERGE MR 2.5MM 12MM 2 LUM TAPER TIP Intervention: Angioplasty was performed following stent deployment. Maximum pressure: 18 mariana. Inflation time: 6 sec. Supplies Used: [id number] CATHETER BALLOON DIL NC EMERGE MR 2.5MM 12MM 2 LUM TAPER TIP Post-Intervention Lesion Assessment: The intervention was successful. The guidewire crossed the lesion. Post-intervention NAS flow is 3. Lesion had 10 mm of its length treated. The patient was therapeutically anticoagulated with intravenous bivalirudin. A 6 [place] Islander EBU 3.5 guide sat fairly well. The [...] The LAD flow was excellent Supplies Used: [id number] CORONARY STENT SYSTEM SYNERGY XD MR 2.25MM 16MM DELIVERY SYS There is a 0% residual stenosis post intervention. Cardiac Protocol CAD Kristina PETERS CV CARDIAC CATH ORDERABLES * (ABNORMAL) POCT Activated Clotting Time (ACT) (12/24/2024 3:45 PM EST) [facility] Activated Clotting Time, POC 407(A) 89 - [...] (Anti Xa) (12/24/2024 2:03 PM EST) Pathologist [facility] Anti Xa 0.39 IU/mL 12/24/2024 3:42 PM EST [facility] Comment: (NOTE) Heparin Thromboembolic/Standard/Full Dose Protocol: [...] IV HEPARIN, UNFRACTIONATED 12/24/2024 2:02 PM EST [facility] Blood Plasma specimen / Unknown 12/24/2024 2:03 PM EST 12/24/2024 3:09 PM EST Juwan Willingham MD LAB BLOOD ORDERABLES Performing Organization Address [facility] de Phone Number [facility] [address] [place] [address], * Troponin I, High Sensitivity (12/24/2024 2:02 PM EST) [facility] Troponin I, High Sensitivity <3 <34 ng/L 12/24/2024 3:33 PM EST [facility] Delta (HS Troponin I) NO PREVIOUS RESULT 12/24/2024 3:33 PM EST [facility] Serum specimen / Unknown 12/24/2024 2:02 PM EST 12/24/2024 3:08 PM EST Juwan Willingham MD LAB BLOOD ORDERABLES Performing Organization Address [facility] de Phone Number [facility] [address] [place] [address], * (ABNORMAL) Complete Blood Count, WITHOUT Differential (routine) (12/24/2024 2:02 PM EST) [facility] White Blood Cell Count 6.0 4.0 - 11.0 Thou/uL 12/24/2024 3:12 PM EST [facility] Platelet Count 270 150 - 450 Thou/uL 12/24/2024 3:12 PM EST [facility] Hemoglobin 14.6 11.7 - 15.7 g/dL 12/24/2024 3:12 PM EST [facility] Hematocrit 43.4 35.0 - 47.0 % 12/24/2024 3:12 PM EST [facility] Red Blood Cell Count 4.66 4.00 - 5.40 Mil/uL 12/24/2024 3:12 PM EST [facility] MCV 93 80 - 100 fL 12/24/2024 3:12 PM EST [facility] MCH 31.3(H) 27.0 - 31.0 pg 12/24/2024 3:12 PM EST [facility] MCHC 33.6 30.0 - 36.0 g/dL 12/24/2024 3:12 PM EST [facility] RDW 12.2 11.5 - 14.5 % 12/24/2024 3:12 PM EST [facility] MPV 9.8 7.5 - 12.5 fL 12/24/2024 3:12 PM EST [facility] Blood Blood specimen / Unknown 12/24/2024 2:02 PM EST 12/24/2024 3:08 PM EST Juwan Willingham MD LAB BLOOD ORDERABLES [facility] [address] [place] [address], * (ABNORMAL) Basic Metabolic Panel (Routine) (12/24/2024 2:02 PM EST) Glucose 130(H) 74 - 106 mg/dL 12/24/2024 3:33 PM EST [facility] Comment:Fasting: <100 mg/dL, Non-Fasting: <200 mg/dL (ADA 2005) Blood Urea Nitrogen (BUN) 13 9 - 23 mg/dL 12/24/2024 3:33 PM EST [facility] Creatinine 0.8 0.6 - 1.0 mg/dL 12/24/2024 3:33 PM EST [facility] eGFR 80 >59 12/24/2024 3:33 PM EST [facility] Comment:CKD-EPI (2020) in mL /min/1.73 sq meters. Sodium 139 136 - 145 mmol/L 12/24/2024 3:33 PM EST [facility] Potassium 3.8 3.4 - 4.5 mmol/L 12/24/2024 3:33 PM EST [facility] Chloride 103 98 - 107 mmol/L 12/24/2024 3:33 PM EST [facility] CO2 27 20 - 31 mmol/L 12/24/2024 3:33 PM EST [facility] Anion Gap 9 5 - 15 12/24/2024 3:33 PM EST [facility] Calcium 10.2 8.7 - 10.5 mg/dL 12/24/2024 3:33 PM EST [facility] BUN/Creatinine Ratio 16 10.0 - 25.0 Ratio 12/24/2024 3:33 PM EST [facility] Blood (Plasma/Serum) 12/24/2024 2:02 PM EST 12/24/2024 3:08 PM EST Juwan Willingham MD LAB BLOOD ORDERABLES [facility] [address] [place] [address], * ECG 12 lead (12/24/2024 1:55 PM EST) Ventricular rate 74 BPM EKG [facility] Atrial rate 74 BPM EKG [facility] P-R interval 174 ms EKG [facility] QRS duration 90 ms EKG [facility] Q-T interval 394 ms EKG [facility] QTC calculation (Bazett) 438 ms EKG [facility] P axis 36 degrees EKG [facility] R axis 3 degrees EKG [facility] T axis 71 degrees EKG [facility] 12/24/2024 1:55 PM EST Narrative EKG [facility] - 12/24/2024 2:14 PM EST Normal sinus rhythm Nonspecific T wave abnormality Abnormal ECG No previous ECGs available Confirmed by MD Sanches Osman ([id number]) on 12/24/2024 2:14:31 PM Procedure Note Sanya Sanches MD - 12/24/2024 Normal sinus rhythm Nonspecific T wave abnormality Abnormal ECG No previous ECGs available Confirmed by MD Sanches Osman ([id number]) on 12/24/2024 2:14:31 PM Juwan Willingham MD ECG ORDERABLES [facility] documented in this encounter Visit Diagnoses [...] = 50 units/mL, Indication for Anticoagulation: Acute AR 1425 (New Bag - Provider: Yuki Wu [...] Transfer Provider - Reason: Unreviewed Transfer Orders)1810 ([facility] Unhold - Provider: User Epic) glucose (GLUTOSE [...] Transfer Provider - Reason: Unreviewed Transfer Orders)1810 ([facility] Unhold - Provider: User Epic) glucose (GLUTOSE [...] Transfer Provider - Reason: Unreviewed Transfer Orders)1810 ([facility] Unhold - Provider: User Epic) iohexol (OMNIPAQUE) [...] injection. documented in this encounter Care Teams Binman Relationship Specialty Start Date End Date Ngoc Ordonez APRN [address] [place] [address] [phone] PCP - General Family Medicine 12/24/24 documented as of this encounter
--- OUTSIDE RECORDS SUMMARY | 2025-01-08 14:51 | XMS_ITS | Encounter Summary ---
Author Organization [facility]ly [facility] Address [address] [place] [address] Care Team Providers Care Rim Roller Setter Name Role Phone Ngoc Ordonez APRN Primary Care Provider + Beau Hays MD Unavailable [phone] Encounter Details Date Type Department Care Team (Late st Contact Info) Description 01/07/2025 Orders Only [facility] [place] [address] [phone] Yaima De Paz APRN [address] [place], [place] [id number] Chest pain, unspecified type (Primary Dx); NSTEMI (non-ST elevated myocardial infarction) (HCC) Social History Tobacco Use Types Packs/Day Years Used Date Smoking Tobacco: Never Assessed [facility] Utilities Answer Date Recorded In the past 12 months has [employer], gas, oil, or water [employer] threatened to shut off services in your [...] any time in the past 12 m [facility], were you homeless or living in a mcc (including now)? No 12/25/2024 Sex and Gender [...] unspecified documented in this encounter Care Teams Rim Roller Setter Relationship Specialty Start Date End Date Ngoc Ordonez APRN [address] [place] [address] [phone] PCP - General Family Medicine 12/24/24 Beau Hays MD [address] [place], [place] [phone] Primary Photographic Aide Cardiovascular Disease 01/07/25 documented as of this encounter
--- OUTSIDE RECORDS SUMMARY | 2025-01-08 14:51 | XMS_ITS | Encounter Summary ---
Author Organization [facility] Address [address] [place] [address] Care Team Providers Care Scientific Informatics Analyst Name Role Phone Ngoc Ordonez APRN Primary Care Provider + Beau Hays MD Unavailable [phone] Reason for Visit * Reason Comments Hospital Follow-up Hospital follow up Encounter Details Date Type Department Care Team (Late st Contact Info) Description 01/07/2025 10:40 AM EST Office Visit [facility] [place] [address] [phone] Beau Hays MD [address] [place] [id number] Hospital discharge follow-up (Primary Dx); Chest pain, unspecified type Discharge Disposition: Home or Self Care Social History Tobacco Use Types Packs/Day Years Used Date Smoking Tobacco: Never Assessed [facility] Utilities Answer Date Recorded In the past 12 months has [employer], oil, or water [employer] threatened to shut off services in your [...] any time in the past 12 m [facility], were you homeless or living in a [...] Ordonez, YARELIS 69F Patient was recently at [facility] with NSTEMI and is s/p KELL[facility] of [facility]. All available records from recent hospital visit (including lab results, notes, imaging studies/reports) have been reviewed by me. No past medical history on file. Past Surgical History: Procedure Laterality Date CC CORONARY ANGIO W/LV N/A 12/24/2024 Procedure: CORONARY ANGIO W/LV; Surgeon: Santosh Brady MD; Location: [facility]; Service: Cardiovascular; Laterality: N/A; CC KELLEN PLACEMENT, 1ST ARTERY N/A 12/24/2024 Procedure: KELLEN PLACEMENT, 1ST ARTERY; Surgeon: Santosh Brady MD; Location: [facility]; Service: Cardiovascular; Laterality: N/A; No family history [...] & Plan 69F Patient was recently at [facility] with NSTEMI and is s/p [...] Beau Hays MD [facility] [place] 01/07/25 11:01 AM documented in this encounter Plan of Treatment Not on file documented as of this encounter Procedures Procedure Name Priority Date/Time Associated Diagnosis Comments ECG 12-LEAD Routine 01/07/2025 10:30 AM EST Hospital discharge follow-up documented in this encounter Results * ECG 12 lead (01/07/2025 10:30 AM EST) Ventricular rate 71 BPM EKG [facility] Atrial rate 71 BPM EKG [facility] P-R interval 186 ms EKG [facility] QRS duration 90 ms EKG [facility] Q-T interval 362 ms EKG [facility] QTC calculation (Bazett) 393 ms EKG [facility] P axis 43 degrees EKG [facility] R axis 10 degrees EKG [facility] T axis 46 degrees EKG [facility] 01/07/2025 10:3 0 AM EST Narrative EKG [facility] - 01/07/2025 2:06 PM EST Normal sinus rhythm Possible Anterior infarct (cited on or before 24-Dec-2024) Abnormal ECG When compared with ECG of 24-Dec-2024 16:09, QT has shortened Confirmed by MD Sukhi, Gem ([id number]) on 01/07/2025 2:06:51 PM Procedure Note Gem Isbell MD - 01/07/2025 Normal sinus rhythm Possible Anterior infarct (cited on or before 24-Dec-2024) Abnormal ECG When compared with ECG of 24-Dec-2024 16:09, QT has shortened Confirmed by MD Isbell Anja ([id number]) on 01/07/2025 2:06:51 PM Gem Isbell MD ECG ORDERABLES EKG [facility] documented in this encounter Visit Diagnoses Diagnosis Hospital discharge follow-up- Primary Other follow-up examination Chest pain, unspecified type documented in this encounter Care Teams Scientific Informatics Analyst Relationship Specialty Start Date End Date Ngoc Ordonez APRN [address] [place] [phone] PCP - General Family Medicine 12/24/24 Beau Hays MD [facility] [place] [address] Primary Registered Travel Nurse Cardiovascular Disease 01/07/25 documented as of this encounter
--- OUTSIDE RECORDS SUMMARY | 2025-01-08 14:51 | XMS_ITS | Encounter Summary ---
Author Organization [facility] Address [address] [place] [address] Care Team Providers Care Truck Service Technician Name Role Phone Ngoc Ordonez APRN Primary Care Provider + Encounter Details Date Type Department Care Team (Late st Contact Info) Description 12/24/2024 10:50 AM EST Ancillary Procedure [facility] Radiology [address] [place] [address] Provider, File Room Social History Tobacco Use Types Packs/Day Years Used Date Smoking Tobacco: Never Assessed [facility] Utilities Answer Date Recorded In the past 12 months has th e electric, gas, oil, or water [employer] threatened to shut off services in your [...] any time in the past 12 m [facility], were you homeless or living in a assisted (including now)? No 12/25/2024 Sex and Gender [...] Provider IMG DIGITIZE FILMS Performing Organization Address City/State/[facility] Co de Phone Number MARGE [phone] documented in this encounter Visit Diagnoses Not on filedocumented in this encounter Care Teams Truck Service Technician Relationship Specialty Start Date End Date Ngoc Ordonez APRN [address] [place] [phone] PCP - General Family Medicine 12/24/24 documented as of this encounter
--- OUTSIDE RECORDS SUMMARY | 2025-01-08 14:51 | XMS_ITS | Encounter Summary ---
Author Organization [facility] Address [address] [place] [id number] Care Team Providers Care Blind Eyeletter Name Role Phone Ngoc Ordonez APRN Primary Care Provider + Reason for Referral * Cardiology (Routine) - Closed Specialty Diagnoses / Procedures Referred By Contact Referred To Contact Cardiovascular Disease / Cardiac Rehabilitation Diagnoses NSTEMI (non-ST elevated myocardial infarction) (HCC) Keenan Arreguin MD [address] [place] [address] [facility] [address] [place] [phone] Referral ID Status Reason Start Date Expiration Date V isits Requested Visits Authorized [id number] Closed Support Services 12/25/2024 12/26/2025 1 1 Question Answer Indication for Cardiac Rehab Angioplasty/Stent Reason for Visit * Auth/Cert Specialty Diagnoses / Procedures Referred By Contac t Referred To Contact Diagnoses abnormal stress Procedures . Referral ID Status Reason Start Date Expiration Date Visits Re quested Visits Authorized [id number] 1 1 Encounter Details Date Type Department Care Team (Latest Contact Info) Description 12/24/2024 1:26 PM EST - 12/25/2024 12:36 PM EST Hospital Encounter [facility] [address] [place] [address] [place] [id number] Juwan Willingham MD [address] [place] [address] Keenan Arreguin MD [address] [place] [address] NSTEMI (non-ST elevated myocardial infarction) (HCC) (Primary Dx) Discharge Disposition: Home or Self Care Social History Tobacco Use Types Packs/Day Years Used Date Smoking Tobacco: Never Assessed [facility] Utilities Answer Date Recorded In the [...] time in the past 12 [address] [place], were you homeless or living in a [...] Primary Care Physician at Discharge: Ngoc Ordonez, TOOTH INSPECTOR Discharge Date: 12/25/2024 Primary Discharge Diagnosis Unstable angina Secondary Discharge Diagnosis No past medical history on file. Procedure and Studies during Hospitalization: Surgical/Procedural Cases on this Admission Case IDs Date Procedure Surgeon Location Status [id number] 12/24/24 CORONARY ANGIO W/LV Santosh Brady MD SV TRAVELING PLANT OPERATOR Comp Consultations: Cardiology Discharge Medications Discharge [...] MG tablet Commonly known as: CATAPRES Followup: [facility] Re[facility] of [address] [phone] Ngoc Ordonez, TOOTH INSPECTOR [address] [facility] [id number] Code Status: Full Code HPI and Hospital Course 69-year-old female with history of hypertension, fatty liver disease, diabetes, hyperlipidemia presented from [facility] for unstable angina S/p [facility] with successful stenting of severe and stable first diagonal disease with KELLEN And doing well postprocedure. Ambulating without any recurrence of chest pain. Continue uninterrupted aspirin, Plavix, statin Started on metoprolol succinate 25 mg daily Continue home losartan, Norvasc Discussed with cardiology-will hold clonidine until follow-up in cardiology clinic for further adjustment The patient states that she has cardiology appointment in [place] however, the appointment is not until late [...] to the cardiac rehab department from your supply chain vice president. [facility] Referral is included in your cardiac rehab folder. The Cardiac rehab staff will schedule an initial assessment with you before starting the exercise program. When: Depending your diagnosis, when you can start cardiac rehab will vary: Open Heart Surgery - 4-6 weeks after surgery Angioplasty / Stents - 1-2 weeks after the procedure Heart Attack / Transplant- At supply chain vice president discretion Heart Failure - 6 weeks after discharge from hospital If you have any further questions or would like more information, please contact [facility] [place] [id number] [place] [address] Fax: [facility] [address] [place] [address] [facility] - CARD[facility]AC REH[facility] [address] [place] [address] [place] [address] [facility] Address: [address] [place] [address] [address], [place] [address] [place] Society for Cardiac Rehab [...] to the cardiac rehab department from your supply chain vice president. [facility] Referral is included in your cardiac rehab folder. The Cardiac Rehab staff will schedule an initial assessment with you before starting the exercise program. When: Depending on your diagnosis, when you can start cardiac rehab will vary: Open Heart Surgery - 4-6 weeks after surgery Angioplasty / Stents - 1-2 weeks after the procedure Heart Attack / Transplant - At supply chain vice president discretion Heart Failure - 6 weeks after discharge from hospital Follow these instructions at home: Take [id number] and prescription medicines only as told by [...] you have with your health care provider. [facility] [address] [place] [address] [place] [address] [facility] - Cardiac Rehab [address] [place] [address] [facility] [address] [place] [address] Document Released: 05/12/2006 Document Revised: 03/09/2015 Document Reviewed: 03/26/2014 ExitCare?? Patient Information ??2015 [employer] This information is not intended to replace [...] disease, cervical fusions is a transfer from [facility] for unstable angina. Today, patient appears [...] numbness or tingling in hand, equal b/l predatory animal trapper strength. NSTEMI s/p KELLEN to first diagonal - asa - plavix - atorvastatin 40 mg daily - metoprolol succinate 25 mg - follow up with OP supply chain vice president within 1-2 weeks of DC - scheduled January [address] Hays - pt will then follow up with her supply chain vice president in [place] - telemetry - Mg>2, K>4 - EKG [...] ANGIO W/LV; Surgeon: Santosh Brady MD; Location: TRAVELING PLANT OPERATOR; Service: Cardiovascular; Laterality: N/A; CC KELLEN PLACEMENT, 1ST ARTERY N/A 12/24/2024 Procedure: KELLEN PLACEMENT, 1ST ARTERY; Surgeon: Santosh Brady MD; Location: SV TRAVELING PLANT OPERATOR; Service: Cardiovascular; Laterality: N/A; No family [...] from the original result were not included. [facility] [place] at [facility] - Cardiac Catheterization Laboratory PATIENT DEMOGRAPHIC INFORMATION Name: Bridgett Jernigan : 1955 69 y.o. Sex: female Gender: female Procedure Date: 12/24/2024 Referring Physician: Darian Valente PCP: No primary care provider on file. Procedure(s): Procedures: * CORONARY ANGIO W/LV * KELLEN PLACEMENT, 1ST ARTERY Indication: Hospital Aides And Assistants Teacher: Santosh Brady MD Risk Management Analyst(s): Vivek Kenny and None Anginal Classification: Typical [...] unstable angina, abnormal stress test transferred from [facility]. ACCESS Access: Right Radial Artery Sheath(s): 6Fr [place] Sheath Hemostasis Method: TR Band DIAGNOSTIC FINDINGS [...] mariana. Inflation time: 8 sec. Supplies used: [id number] CORONARY STENT SYSTEM SYNERGY XD MR 2.25MM 16MM DELIVERY SYS Intervention Angioplasty was performed following stent deployment. Maximum pressure: 14 mariana. Inflation time: 6 sec.Multiple inflations Supplies used: [id number] CATHETER BALLOON DIL NC EMERGE MR 2.5MM 12MM 2 LUM TAPER TIP Intervention Angioplasty was performed following stent deployment. Maximum pressure: 18 mariana. Inflation time: 6 sec. Supplies used: [id number] CATHETER BALLOON DIL NC EMERGE MR 2.5MM 12MM 2 LUM TAPER TIP Post-Intervention Lesion Assessment The intervention was successful. The guidewire crossed the lesion. Post-intervention NAS flow is 3. Lesion had 10 mm of its length treated. The patient was therapeutically anticoagulated with intravenous bivalirudin. A 6 [place] EBU 3.5 guide sat fairly well. The [...] The LAD flow was excellent Supplies used: [id number] CORONARY STENT SYSTEM SYNERGY XD MR 2.25MM [...] this patient that I request from a [facility] PA/TOOTH INSPECTOR/fellow/staff member. Santosh Brady MD [facility] 12/24/2024 4:04 PM 24 [...] have discussed the case with the Physician Risk Management Analyst/TOOTH INSPECTOR and we have formulated the plan. [...] Patient arrived on unit @ 1800 from receiver/laborer via stretcher accompanied by 2 Cardiac patient service technician pst's on [facility]. A + O x4. Vital signs stable. [...] Patient arrived on unit @ 1440 from [facility] via stretcher. A + O x4. Vital [...] disease, cervical fusions is a transfer from [facility] for unstable angina. Today, patient appears [...] stress test so will send patient for [facility] today. Per patient's record from [facility] H&H 14.3/41.5, platelets 232, potassium 4.3, [...] -EKG for chest pain -Follow-up with outpatient supply chain vice president within 1 week of discharge Risk, benefits [...] disease, cervical fusions is a transfer from [facility] for unstable angina. Over the past [...] Patient just moved from [place] to [facility]. Patient [place] supply chain vice [place] be seen by her supply chain vice president in [place]. Review of systems: Review of Systems Constitutional: [...] EST PATIENT DISCHARGED 12/25/2024 Per State of [place] General Statutes Sec: 38a-226c: Notification of determination shall be mailed or otherwise communicated within 2 business days of receipt of all information necessary to complete the review. Please fax authorization determination to [phone] or call [phone]. * Case Coordination-Payor Communication - Romero Heck - 12/25/2024 12:36 PM EST 2nd request: Please follow-up with the Clinical Resource Management Department via fax ([phone]) or phone ([phone]) with status of authorization [facility]. Thank you. * Plan of Care [...] Does the Patient Have a CT DNR [place] Bracelet or State DNR Form?: no Clinical [...] RRA site CDI no sign of hematoma. +[facility] checks WDL. Multiple attempts were made to update pt's by this RN, but pt's husbands phone kept going straight to voicemail. Angiomax stopped per orders at 1800. Plan for TR band to be removed at 2000. Report called and given to Neisha ALONZO. Pt transported on monitor with RN assist. Handoff completed at [facility]. * Case Coordination-Payor Communication - June [...] disease, cervical fusions is a transfer from [facility] for unstable angina. Today, patient appears [...] for LHC today. Per patient's record from [facility] H&H 14.3/41.5, platelets 232, potassium 4.3, [...] 160/85 Abnormal 94 room air (none) 3L [facility] Labs[facility]Diagnostics: Latest Reference Range & Units 12/24/24 [...] 6.5(H) <5.7 % 12/25/2024 5:38 PM EST [facility] Comment: A1c% ? Interpretation 5.7 - 6.0 ?Increase risk of diabetes 6.1 - 6.4 ?Higher risk of diabetes > or = 6.5 ?? Consistent with diabetes Diabetes Care, 33(Supp 1):S1-S61, 2010 Estimated Average Glucose 140 mg/dL 12/25/2024 5:38 PM EST [facility] Blood Blood specimen / Unknown 12/25/2024 8:00 AM EST 12/25/2024 8:12 AM EST Keenan Arreguin MD LAB BLOOD ORDERABLES Performing Organization Address City/[facility]/[place] [address], [place] [address] * (ABNORMAL) POCT Glucose, Fingerstick (12/25/2024 7:39 [...] 135 <150 mg/dL 12/25/2024 8:24 AM EST [facility] Cholesterol, HDL 43(L) >60 mg/dL 12/25/19 8:24 AM EST [facility] Estimated LDL 98 <130 mg/dL 12/25/2024 8:24 AM EST [facility] Comment: NCEP Guidelines: ?< 100 mg/dL ??Optimal 100 - 129 mg/dL ??Near Optimal/Above Optimal 130 - 159 mg/dL ??Borderline High 160 - 189 mg/dL ??High ??>/= 190 mg/dL ??Very High Cholesterol/HDL Ratio 3.9 0.0 - 5.0 Ratio 12/25/2024 8:24 AM EST [facility] Comment: Relative Risk ? Ratio - Male ? Ratio - Female ?0.5 ?3.4 ?3.3 ?1.0 ?5.0 ?4.4 ?2.0 ?9.6 ?7.1 ?3.0 ? 23.4 ? 11.0 Plasma/Serum 12/25/2024 5:33 AM EST 12/25/2024 6:08 AM EST Kristina PETERS LAB BLOOD ORDERABLES [facility] [address] [place] [address], * Protime-INR (12/25/2024 5:33 AM EST) Anticoagulant IV HEPARIN, UNFRACTIONATED 12/24/2024 11:01 PM EST [facility] Prothrombin Time (PT) 12.1 10.0 - 13.5 seconds 12/25/2024 6:19 AM EST [facility] INR 1.1 12/25/2024 6:19 AM EST [facility] Comment:INR Therapeutic Rang es: Standard dose anticoagulant 2.0 to 3.0, High dose anticoagulant 2.5-3.5. Blood Plasma specimen / Unknown 12/25/2024 5:33 AM EST 12/25/2024 6:08 AM EST Easton Aguirre PA-C LAB BLOOD ORDERABLES [address] * Partial Thromboplastin Time (PTT) (12/25/2024 5:33 AM EST) Anticoagulant IV HEPARIN, UNFRACTIONATED 12/24/2024 11:01 PM EST [facility] Partial Thromboplastin Time (PTT) 33 26 - 37 seconds 12/25/2024 6:19 AM EST [facility] Blood Plasma specimen / Unknown 12/25/2024 5:33 AM EST 12/25/2024 6:08 AM EST Easton Aguirre PA-C LAB BLOOD ORDERABLES [address] * (ABNORMAL) Comprehensive Metabolic Panel (12/25/2024 5:33 AM EST) Glucose 131(H) 74 - 106 mg/dL 12/25/2024 6:35 AM EST [facility] Comment:Fasting: <100 mg/dL, Non-Fasting: <200 mg/dL (ADA 2005) Blood Urea Nitrogen (BUN) 10 9 - 23 mg/dL 12/25/2024 6:35 AM EST [facility] Creatinine 0.9 0.6 - 1.0 mg/dL 12/25/2024 6:35 AM [facility] eGFR 69 >59 12/25/2024 6:35 AM [facility] Comment:CKD-EPI (2020) in mL /min/1.73 sq meters. Sodium 139 136 - 145 mmol/L 12/25/2024 6:35 AM [facility] Potassium 4.4 3.4 - 4.5 mmol/L 12/25/2024 6:35 AM [facility] Chloride 107 98 - 107 mmol/L 12/25/2024 6:35 AM [facility] CO2 24 20 - 31 mmol/L 12/25/2024 6:35 AM [facility] Calcium 10.1 8.7 - 10.5 mg/dL 12/25/2024 6:35 AM [facility] Alkaline Phosphatase 125(H) 32 - 122 U/L 12/25/2024 6:35 AM [facility] Aspartate Aminotrans (AST) 79(H) <34 U/L 12/25/2024 6:35 AM [facility] Alanine Aminotrans (ALT) 98(H) 7 - 35 U/L 12/25/2024 6:35 AM [facility] Bilirubin, Total 0.6 0.3 - 1.2 mg/dL 12/25/2024 6:35 AM [facility] Protein, Total 7.5 5.7 - 8.2 g/dL 12/25/2024 6:35 AM [facility] Albumin 4.6 3.4 - 4.8 g/dL 12/25/2024 6:35 AM [facility] BUN/Creatinine Ratio 11 10.0 - 25.0 Ratio 12/25/2024 6:35 AM [facility] Globulin 2.9 1.5 - 3.9 g/dL 12/25/2024 6:35 AM [facility] Albumin/Globulin Ratio 1.6 1.5 - 2.5 Ratio 12/25/2024 6:35 AM EST [facility] Anion Gap 8 5 - 15 12/25/2024 6:35 AM EST [facility] Blood (Plasma/Serum) 12/25/2024 5:33 AM EST 12/25/2024 6:08 AM EST Kristina PETERS LAB BLOOD ORDERABLES [facility] [address] [place] [address], [place] * (ABNORMAL) Complete Blood Count, with Differential (12/25/2024 5:33 AM EST) White Blood Cell Count 5.1 4.0 - 11.0 Thou/uL 12/25/2024 6:12 AM EST [facility] Platelet Count 245 150 - 450 Thou/uL 12/25/2024 6:12 AM EST [facility] Hemoglobin 14.2 11.7 - 15.7 g/dL 12/25/2024 6:12 AM EST [facility] Hematocrit 42.9 35.0 - 47.0 % 12/25/2024 6:12 AM EST [facility] Red Blood Cell Count 4.57 4.00 - 5.40 Mil/uL 12/25/2024 6:12 AM EST [facility] MCV 94 80 - 100 fL 12/25/2024 6:12 AM EST [facility] MCH 31.1(H) 27.0 - 31.0 pg 12/25/2024 6:12 AM EST [facility] MCHC 33.1 30.0 - 36.0 g/dL 12/25/2024 6:12 AM EST [facility] RDW 12.2 11.5 - 14.5 % 12/25/2024 6:12 AM EST [facility] MPV 9.4 7.5 - 12.5 fL 12/25/2024 6:12 AM EST [facility] Neutrophils Auto 53.0 % 12/25/19 6:12 AM EST [facility] Immature Granulocytes 0.2 % 12/25/2024 6:12 AM EST [facility] Lymphocytes Auto 29.1 % 12/25/19 6:12 AM EST [facility] Monocytes Auto 10.8 % 12/25/2024 6:12 AM EST [facility] Eosinophils Auto 4.7 % 12/25/19 6:12 AM EST [facility] Basophils Auto 2.2 % 12/25/2024 6:12 AM EST [facility] Abs Neutrophils Auto 2.69 2.00 - 7.50 Thou/uL 12/25/2024 6:12 AM EST [facility] Abs Immature Granulocytes 0.01 0.00 - 0.10 Thou/uL 12/25/2024 6:12 AM EST [facility] Abs Lymphocytes Auto 1.48(L) 1.50 - 4.50 Thou/uL 12/25/2024 6:12 AM EST [facility] Abs Monocytes Auto 0.55 0.20 - 1.50 Thou/uL 12/25/2024 6:12 AM EST [facility] Abs Eosinophils Auto 0.24 0.00 - 0.70 Thou/uL 12/25/2024 6:12 AM EST [facility] Abs Basophils Auto 0.11 0.00 - 0.20 Thou/uL 12/25/2024 6:12 AM EST [facility] Blood Blood specimen / Unknown 12/25/2024 5:33 AM EST 12/25/2024 6:08 AM EST Kristina PETERS LAB BLOOD ORDERABLES [facility] [address] [place] [address], * Troponin I, High Sensitivity (Once) (12/24/2024 10:01 PM EST) Troponin I, High Sensitivity 29 <34 ng/L 12/24/2024 10:51 PM EST [facility] Delta (HS Troponin I) Unable to calculate result 12/24/2024 10:51 PM EST [facility] Blood Serum specimen / Unknown 12/24/2024 10:01 PM EST 12/24/2024 10:11 PM EST Kristina PETERS LAB BLOOD ORDERABLES Performing Organization Address City/[facility]/ZIP Co de Phone Number [facility] [address] [place] [address], [place] * (ABNORMAL) POCT Glucose, Fingerstick (12/24/2024 [...] 5 <34 ng/L 12/24/2024 7:20 PM EST [facility] Delta (HS Troponin I) Unable to calculate result 12/24/2024 7:20 PM EST [facility] Blood Serum specimen / Unknown 12/24/2024 6:23 PM EST 12/24/2024 6:25 PM EST Kristina PETERS LAB BLOOD ORDERABLES Performing Organization Address City/[facility]/ZIP Co de Phone Number [facility] [address] [place] [address], [place] * (ABNORMAL) POCT Glucose, Fingerstick (12/24/2024 6:15 PM EST) POC Glucose 150(H) 65 - 99 mg/dL 12/24/2024 6:23 PM EST Comment:Notified RN Blood specimen / Unknown 12/24/2024 6:15 PM EST 12/24/2024 6:23 PM EST Juwan Willingham MD POINT OF CARE TEST O RDERABLES HOSPITAL LAB See Below * ECG 12 lead (12/24/2024 4:09 PM EST) Ventricular rate 68 BPM EKG [facility] Atrial rate 68 BPM EKG [facility] P-R interval 180 ms EKG [facility] QRS duration 90 ms EKG [facility] Q-T interval 420 ms EKG [facility] QTC calculation (Bazett) 447 ms EKG [facility] P axis 34 degrees EKG [facility] R axis 10 degrees EKG [facility] T axis 41 degrees EKG [facility] 12/24/2024 4:09 PM EST Narrative EKG [facility] - 12/24/2024 4:23 PM EST Normal sinus rhythm Cannot rule out Anterior infarct , age undetermined Abnormal ECG When compared with ECG of 24-Dec-2024 13:55, No significant change was found Confirmed by MD Hays Venu ([id number]) on 12/24/2024 4:23:39 PM Procedure Note Beau Hays MD - 12/24/2024 Normal sinus rhythm Cannot rule out Anterior infarct , age undetermined Abnormal ECG When compared with ECG of 24-Dec-2024 13:55, No significant change was found Confirmed by MD Hays Venu ([id number]) on 12/24/2024 4:23:39 PM Juwan Willingham MD ECG ORDERABLES Performing Organization Address City/[facility]/ZIP Co de Phone Number EKG [facility] * CC CORONARY ANGIO W/LV, CC KELLEN PLACEMENT, 1ST ARTERY (12/24/2024 3:56 PM EST) Anatomical Region Laterality Modality X-Ray Angiograph y Narrative 12/24/2024 4:05 PM EST Table formatting from the original result was not included. Images from the original result were not included. [facility] [place] at [facility] - Cardiac Catheterization Laboratory PATIENT DEMOGRAPHIC INFORMATION Name: Bridgett Jernigan : 1955 69 y.o. Sex: female Gender: female Procedure Date: 12/24/2024 Referring Physician: Darian Valente PCP: No primary care provider on file. Procedure(s): Procedures: ??* CORONARY ANGIO W/LV ??* KELLEN PLACEMENT, 1ST ARTERY Indication: ? Hospital Aides And Assistants Teacher: Santosh Brady MD Risk Management Analyst(s): Vivek Kenny and Anibal Anginal Classification: Typical [...] unstable angina, abnormal stress test transferred from [facility]. ACCESS Access: Right Radial Artery Sheath(s): 6Fr [place] Sheath Hemostasis Method: TR Band DIAGNOSTIC FINDINGS [...] mariana. Inflation time: 8 sec. Supplies used: [id number] CORONARY STENT SYSTEM SYNERGY XD MR 2.25MM 16MM DELIVERY SYS Intervention Angioplasty ??was performed following stent deployment. Maximum pressure: 14 mariana. Inflation time: 6 sec. Multiple inflations Supplies used: [id number] CATHETER BALLOON DIL NC EMERGE MR 2.5MM 12MM 2 LUM TAPER TIP Intervention Angioplasty ??was performed following stent deployment. Maximum pressure: 18 mariana. Inflation time: 6 sec. Supplies used: [id number] CATHETER BALLOON DIL NC EMERGE MR 2.5MM 12MM 2 LUM TAPER TIP Post-Intervention Lesion Assessment The intervention was successful. The guidewire crossed the lesion. Post-intervention NAS flow is 3. Lesion had 10 mm of its length treated. The patient was therapeutically anticoagulated with intravenous bivalirudin. ??A 6 [place] EBU 3.5 guide sat fairly well. ??The [...] ??The LAD flow was excellent Supplies used: [id number] CORONARY STENT SYSTEM SYNERGY XD MR 2.25MM [...] this patient that I request from a [facility] PA/TOOTH INSPECTOR/fellow/staff member. Santosh Brady MD [facility] [place] 12/24/2024 ??4:04 PM Coronary Findings Diagnostic Dominance: [...] mariana. Inflation time: 8 sec. Supplies Used: [id number] CORONARY STENT SYSTEM SYNERGY XD MR 2.25MM 16MM DELIVERY SYS Intervention: Angioplasty was performed following stent deployment. Maximum pressure: 14 mariana. Inflation time: 6 sec. Multiple inflations Supplies Used: [id number] CATHETER BALLOON DIL NC EMERGE MR 2.5MM 12MM 2 LUM TAPER TIP Intervention: Angioplasty was performed following stent deployment. Maximum pressure: 18 mariana. Inflation time: 6 sec. Supplies Used: [id number] CATHETER BALLOON DIL NC EMERGE MR 2.5MM 12MM 2 LUM TAPER TIP Post-Intervention Lesion Assessment: The intervention was successful. The guidewire crossed the lesion. Post-intervention NAS flow is 3. Lesion had 10 mm of its length treated. The patient was therapeutically anticoagulated with intravenous bivalirudin. A 6 [place] EBU 3.5 guide sat fairly well. The [...] The LAD flow was excellent Supplies Used: [id number] CORONARY STENT SYSTEM SYNERGY XD MR 2.25MM 16MM DELIVERY SYS There is a 0% residual stenosis post intervention. Cardiac Protocol CAD Kristina PETERS CV CARDIAC CATH ORDERABLES * (ABNORMAL) POCT Activated Clotting Time (ACT) (12/24/2024 3:45 PM EST) Pathologist [facility] Activated Clotting Time, POC 407(A) 89 - 169 seconds Blood Blood specimen / Unknown Santosh Brady MD POINT OF CARE TEST O RDERABLES * (ABNORMAL) POCT Glucose, Fingerstick (12/24/2024 3:06 PM EST) Pathologist [facility] POC Glucose 135(H) 65 - 99 mg/dL 12/24/2024 3:13 PM EST Blood specimen / Unknown 12/24/2024 3:06 PM EST 12/24/2024 3:13 PM EST Juwan Willingham MD POINT OF CARE TEST O RDERABLES HOSPITAL LAB See Below * Heparin Assay (Anti Xa) (12/24/2024 2:03 PM EST) Anti Xa 0.39 IU/mL 12/24/2024 3:42 PM EST [facility] Comment: (NOTE) Heparin Thromboembolic/Standard/Full Dose Protocol: [...] IV HEPARIN, UNFRACTIONATED 12/24/2024 2:02 PM EST [facility] Blood Plasma specimen / Unknown 12/24/2024 2:03 PM EST 12/24/2024 3:09 PM EST Juwan Willingham MD LAB BLOOD ORDERABLES [facility] [address] [place] [address], * Troponin I, High Sensitivity (12/24/2024 2:02 PM EST) Troponin I, High Sensitivity <3 <34 ng/L 12/24/2024 3:33 PM EST [facility] Delta (HS Troponin I) NO PREVIOUS RESULT 12/24/2024 3:33 PM EST [facility] Serum specimen / Unknown 12/24/2024 2:02 PM EST 12/24/2024 3:08 PM EST Juwan Willingham MD LAB BLOOD ORDERABLES [facility] [address] [place] [address], * (ABNORMAL) Complete Blood Count, WITHOUT Differential (routine) (12/24/2024 2:02 PM EST) Pathologist [facility] White Blood Cell Count 6.0 4.0 - 11.0 Thou/uL 12/24/2024 3:12 PM EST [facility] Platelet Count 270 150 - 450 Thou/uL 12/24/2024 3:12 PM EST [facility] Hemoglobin 14.6 11.7 - 15.7 g/dL 12/24/2024 3:12 PM EST [facility] Hematocrit 43.4 35.0 - 47.0 % 12/24/2024 3:12 PM EST [facility] Red Blood Cell Count 4.66 4.00 - 5.40 Mil/uL 12/24/2024 3:12 PM EST [facility] MCV 93 80 - 100 fL 12/24/2024 3:12 PM EST [facility] MCH 31.3(H) 27.0 - 31.0 pg 12/24/2024 3:12 PM EST [facility] MCHC 33.6 30.0 - 36.0 g/dL 12/24/2024 3:12 PM EST [facility] RDW 12.2 11.5 - 14.5 % 12/24/2024 3:12 PM EST [facility] MPV 9.8 7.5 - 12.5 fL 12/24/2024 3:12 PM EST [facility] Blood Blood specimen / Unknown 12/24/2024 2:02 PM EST 12/24/2024 3:08 PM EST Juwan Willingham MD LAB BLOOD ORDERABLES [facility] [address] [place] [address], * (ABNORMAL) Basic Metabolic Panel (Routine) (12/24/2024 2:02 PM EST) Glucose 130(H) 74 - 106 mg/dL 12/24/2024 3:33 PM EST [facility] Comment:Fasting: <100 mg/dL, Non-Fasting: <200 mg/dL (ADA 2004) Blood Urea Nitrogen (BUN) 13 9 - 23 mg/dL 12/24/2024 3:33 PM EST [facility] Creatinine 0.8 0.6 - 1.0 mg/dL 12/24/2024 3:33 PM EST [facility] eGFR 80 >59 12/24/2024 3:33 PM EST [facility] Comment:CKD-EPI (2020) in mL /min/1.73 sq meters. Sodium 139 136 - 145 mmol/L 12/24/2024 3:33 PM EST [facility] Potassium 3.8 3.4 - 4.5 mmol/L 12/24/2024 3:33 PM EST [facility] Chloride 103 98 - 107 mmol/L 12/24/2024 3:33 PM EST [facility] CO2 27 20 - 31 mmol/L 12/24/2024 3:33 PM EST [facility] Anion Gap 9 5 - 15 12/24/2024 3:33 PM EST [facility] Calcium 10.2 8.7 - 10.5 mg/dL 12/24/2024 3:33 PM EST [facility] BUN/Creatinine Ratio 16 10.0 - 25.0 Ratio 12/24/2024 3:33 PM EST [facility] Blood (Plasma/Serum) 12/24/2024 2:02 PM EST 12/24/2024 3:08 PM EST Juwan Willingham MD LAB BLOOD ORDERABLES Performing Organization Address [facility]/ZIP Co de Phone Number [facility] [address] [place] [address], * ECG 12 lead (12/24/2024 1:55 PM EST) Pathologist [facility] Ventricular rate 74 BPM EKG [facility] Atrial rate 74 BPM EKG [facility] P-R interval 174 ms EKG [facility] QRS duration 90 ms EKG [facility] Q-T interval 394 ms EKG [facility] QTC calculation (Bazett) 438 ms EKG [facility] P axis 36 degrees EKG [facility] R axis 3 degrees EKG [facility] T axis 71 degrees EKG [facility] 12/24/2024 1:55 PM EST Narrative EKG [facility] - 12/24/2024 2:14 PM EST Normal sinus [...] Willingham MD ECG ORDERABLES Performing Organization Address City/[facility] Co de Phone Number [facility] documented in this encounter [...] = 50 units/mL, Indication for Anticoagulation: Acute VT New Bag 12/24/2024 2:25 PM EST 12 [...] Transfer Orders)1810 (JAN Unhold - Provider: User [employer])2018 (Given - Provider: Marcy Khan RN) 901 [...] Transfer Orders)1810 (MAR Unhold - Provider: User [employer])183 (Given - Provider: Yuki Wu RN) 0749 [...] and/or fellow. 161 (Rate/Dose Change - Provider: Oswalod Aragon, CHERI)174 (New Bag - Provider: Lilliam [...] = 50 units/mL, Indication for Anticoagulation: Acute VT 1425 (New Bag - Provider: Yuki Wu [...] to swallow. See Hypoglycemia Management guideline. 1810 ([facility] Hold - Provider: Automatic Transfer Provider - Reason: Unreviewed Transfer Orders)1810 ([facility] Unhold - Provider: User Epic) dextrose 50 % solution 25 g(Linked Group 1) 25 g, Intravenous, Every 15 min PRN, low blood sugar, less than 50 mg/dL, Starting on Mon12/24/24 at 1456, For patient with IV access who is NPO or unable to swallow. See Hypoglycemia Management guideline. 1810 ([facility] Hold - Provider: Automatic Transfer Provider - Reason: Unreviewed Transfer Orders)1810 ([facility] Unhold - Provider: User Epic) docusate sodium (COLACE) capsule 100 mg 100 mg, Oral, Every 12 hours PRN, constipation, Starting on Mon12/24/24 at 1333 1451 ([facility] Hold - Provider: Automatic Transfer Provider - Reason: Unreviewed Transfer Orders)1810 ([facility] Unhold - Provider: User Epic) fentaNYL (SUBLIMAZE) [...] 1 mL sterile water for injection. 1810 ([facility] Hold - Provider: Automatic Transfer Provider - Reason: Unreviewed Transfer Orders)1810 ([facility] Unhold - Provider: User Epic) glucose (GLUTOSE [...] % = 15 grams of glucose. 1810 ([facility] Hold - Provider: Automatic Transfer Provider - Reason: Unreviewed Transfer Orders)1810 ([facility] Unhold - Provider: User Epic) glucose (GLUTOSE [...] % = 15 grams of glucose. 1810 ([facility] Hold - Provider: Automatic Transfer Provider - Reason: Unreviewed Transfer Orders)1810 ([facility] Unhold - Provider: User Epic) iohexol (OMNIPAQUE) [...] mg = albuterol (base) 2.5 mg. 145 ([facility] Hold - Provider: Automatic Transfer Provider - Reason: Unreviewed Transfer Orders)1810 ([facility] Unhold - Provider: User Epic) lidocaine (XYLOCAINE) [...] injection. documented in this encounter Care Teams Blind Eyeletter Relationship Specialty Start Date End Date Ngoc Ordonez APRN [address] [place] [address] [phone] PCP - General Family Medicine 12/24/24 documented as of this encounter
--- OUTSIDE RECORDS SUMMARY | 2025-01-08 14:52 | XMS_ITS | Encounter Summary ---
Author Organization [facility] Address [address] [place] [address] Care Team Providers Care Linter Saw Sharpener Name Role Phone Ngoc Ordonez APRN Primary Care Provider + Encounter Details Date Type Department Care Team (Late st Contact Info) Description 12/23/[address] [facility] Radiology [address] [place] [phone] Provider, File Room Social History Tobacco Use Types Packs/Day Years Used Date Smoking Tobacco: Never Assessed [facility] Utilities Answer Date Recorded In the past 12 months has th e electric, gas, oil, or water [employer] threatened to shut off services in your [...] time in the past 12 m [facility] [place], were you homeless or living in a long-term (including now)? No 12/25/2024 Sex and Gender [...] File Room Provider [employer] [phone] documented in this encounter Visit Diagnoses Not on filedocumented in this encounter Care Teams Linter Saw Sharpener Relationship Specialty Start Date End Date Ngoc Ordonez, DENTAL INSTRUCTOR [address] [place] [phone] PCP - General Family Medicine 12/24/24 documented as of this encounter
--- OUTSIDE RECORDS SUMMARY | 2025-01-08 14:52 | XMS_ITS | Clinical Summary ---
Author Organization [facility] Address [address] [place] [address] Care Team Providers Care Gericare Aide Teacher Name Role Phone Ngoc Ordonez APRN Primary Care Provider + Beau Hays MD Unavailable [phone] Allergies Active Allergy Reactions Criticality Noted Date [...] Description 01/07/2025 10:40 AM EST Office Visit [facility] [address] [place] [phone] Beau Hays MD Hospital discharge follow-up (Primary Dx); Chest pain, unspecified type Discharge Disposition: Home or Self Care 01/07/2025 Orders Only [facility] [address] [phone] Yaima De Paz APRN Chest pain, unspecified type (Primary Dx); NSTEMI (non-ST elevated myocardial infarction) (HCC) 01/07/2025 Travel 12/24/2024 3:00 PM EST - 12/24/2024 3:58 PM EST Surgery [facility] Heart & Vascular [place] at [facility] - Cardiac Catheterization Laboratory [address] [place] [phone] Santosh Brady MD CORONARY ANGIO W/LV 12/24/2024 1:26 PM EST - 12/25/2024 12:36 PM EST Hospital Encounter [facility] [place] [address] [place] [phone] Juwan Willingham MD Haider, Asim, MD NSTEMI (non-ST elevated myocardial infarction) (HCC) (Primary Dx) Discharge Disposition: Home or Self Care 12/24/2024 10:50 AM EST Ancillary Procedure [facility] [address] [place] [phone] Provider, File Room 12/23/2024 Orders Only [facility] [address] [place] [phone] Provider, File Room from Last 3 Months Social History Tobacco Use Types Packs/Day Years Used Date Smoking Tobacco: Never Assessed [facility] Utilities Answer Date Recorded In the past 12 months has [employer], gas, oil, or water [employer] threatened to shut off services in your [...] were you homeless or living in a usp (including now)? No 12/25/2024 Sex and Gender [...] this topic Medical Devices Implanted Type Area Daily Sales Audit Clerk Device Identifier Shelf Expiration Date Model / Serial / Lot [id number] Coronary Stent System Synergy Xd Mr 2.25mm 16mm Delivery s - [id number] Implanted:Qty : 1 on 12/24/2024 by Santosh Brady MD at [facility] Stent N/A: Coronary [employer] [id number] 02/20/2026 [id number] / / [id number] Procedures Procedure Name Priority Date/Time Associated Diagnosis [...] is included. Ventricular rate 71 BPM EKG [facility] Atrial rate 71 BPM EKG [facility] P-R interval 186 ms EKG [facility] QRS duration 90 ms EKG [facility] Q-T interval 362 ms EKG [facility] QTC calculation (Bazett) 393 ms EKG [facility] P axis 43 degrees EKG [facility] R axis 10 degrees EKG [facility] T axis 46 degrees EKG [facility] 01/07/2025 10:3 0 AM EST Narrative EKG [facility] - 01/07/2025 2:06 PM EST Normal sinus rhythm Possible Anterior infarct (cited on or before 24-Dec-2024) Abnormal ECG When compared with ECG of 24-Dec-2024 16:09, QT has shortened Confirmed by MD Isbell Anja ([id number]) on 01/07/2025 2:06:51 PM Procedure Note Gem Isbell MD - 01/07/2025 Normal sinus rhythm Possible Anterior infarct (cited on or before 24-Dec-2024) Abnormal ECG When compared with ECG of 24-Dec-2024 16:09, QT has shortened Confirmed by MD Sukhi, Gem ([id number]) on 01/07/2025 2:06:51 PM Gem Isbell MD ECG ORDERABLES EKG [facility] * ECHOCARDIOGRAM COMPREHENSIVE WITH CONTRAST (12/25/2024 [...] 6.5(H) <5.7 % 12/25/2024 5:38 PM EST [facility] Comment: A1c% ? Interpretation 5.7 - 6.0 ?Increase risk of diabetes 6.1 - 6.4 ?Higher risk of diabetes > or = 6.5 ?? Consistent with diabetes Diabetes Care, 33(Supp 1):S1-S61, 2010 Estimated Average Glucose 140 mg/dL 12/25/2024 5:38 PM EST [facility] Blood Blood specimen / Unknown 12/25/2024 8:00 AM EST 12/25/2024 8:12 AM EST Keenan Arreguin MD LAB BLOOD ORDERABLES Performing Organization Address [facility]/[place] [address], [place] [address] * (ABNORMAL) POCT Glucose, Fingerstick (12/25/2024 7:39 AM EST) Only the most recent of4 resultswithin the time period is included. Pathologist [facility] POC Glucose 136(H) 65 - 99 mg/dL 12/25/2024 7:46 AM EST Comment:Notified RN Blood specimen / Unknown 12/25/2024 7:39 AM EST 12/25/2024 7:46 AM EST Keenan Arreguin MD POINT OF CARE TEST O RDERABLES HOSPITAL LAB See Below * (ABNORMAL) Complete Blood Count, with Differential (12/25/2024 5:33 AM EST) White Blood Cell Count 5.1 4.0 - 11.0 Thou/uL 12/25/2024 6:12 AM EST [facility] Platelet Count 245 150 - 450 Thou/uL 12/25/2024 6:12 AM EST [facility] Hemoglobin 14.2 11.7 - 15.7 g/dL 12/25/2024 6:12 AM [facility] Hematocrit 42.9 35.0 - 47.0 % 12/25/2024 6:12 AM [facility] Red Blood Cell Count 4.57 4.00 - 5.40 Mil/uL 12/25/2024 6:12 AM [facility] MCV 94 80 - 100 fL 12/25/2024 6:12 AM [facility] MCH 31.1(H) 27.0 - 31.0 pg 12/25/2024 6:12 AM [facility] MCHC 33.1 30.0 - 36.0 g/dL 12/25/2024 6:12 AM [facility] RDW 12.2 11.5 - 14.5 % 12/25/2024 6:12 AM [facility] MPV 9.4 7.5 - 12.5 fL 12/25/2024 6:12 AM [facility] Neutrophils Auto 53.0 % 12/25/19 6:12 AM [facility] Immature Granulocytes 0.2 % 12/25/2024 6:12 AM [facility] Lymphocytes Auto 29.1 % 12/25/19 6:12 AM [facility] Monocytes Auto 10.8 % 12/25/2024 6:12 AM [facility] Eosinophils Auto 4.7 % 12/25/19 6:12 AM [facility] Basophils Auto 2.2 % 12/25/2024 6:12 AM [facility] Abs Neutrophils Auto 2.69 2.00 - 7.50 Thou/uL 12/25/2024 6:12 AM [facility] Abs Immature Granulocytes 0.01 0.00 - 0.10 Thou/uL 12/25/2024 6:12 AM [facility] Abs Lymphocytes Auto 1.48(L) 1.50 - 4.50 Thou/uL 12/25/2024 6:12 AM [facility] Abs Monocytes Auto 0.55 0.20 - 1.50 Thou/uL 12/25/2024 6:12 AM EST [facility] Abs Eosinophils Auto 0.24 0.00 - 0.70 Thou/uL 12/25/2024 6:12 AM EST [facility] Abs Basophils Auto 0.11 0.00 - 0.20 Thou/uL 12/25/2024 6:12 AM EST [facility] Blood Blood specimen / Unknown 12/25/2024 5:33 AM EST 12/25/2024 6:08 AM EST Kristina PETERS [place] [address], * Partial Thromboplastin Time (PTT) (12/25/2024 5:33 AM EST) Anticoagulant IV HEPARIN, UNFRACTIONATED 12/24/2024 11:01 PM EST [facility] Partial Thromboplastin Time (PTT) 33 26 - 37 seconds 12/25/2024 6:19 AM EST [facility] Blood Plasma specimen / Unknown 12/25/2024 5:33 AM EST 12/25/2024 6:08 AM EST Easton Aguirre PA-C LAB [place] [address], * Protime-INR (12/25/2024 5:33 AM EST) Anticoagulant IV HEPARIN, UNFRACTIONATED 12/24/2024 11:01 PM EST [facility] Prothrombin Time (PT) 12.1 10.0 - 13.5 seconds 12/25/2024 6:19 AM EST [facility] INR 1.1 12/25/2024 6:19 AM EST [facility] Comment:INR Therapeutic Rang es: Standard dose anticoagulant 2.0 to 3.0, High dose anticoagulant 2.5-3.5. Blood Plasma specimen / Unknown 12/25/2024 5:33 AM EST 12/25/2024 6:08 AM EST Easton Aguirre PA-C LAB BLOOD ORDERABLES [facility] [address] [place] [address], * (ABNORMAL) LIPID PANEL (12/25/2024 5:33 AM EST) Cholesterol, Total 168 <200 mg/dL 2024 8:24 AM EST [facility] Triglycerides 135 <150 mg/dL 12/25/2024 8:24 AM EST [facility] Cholesterol, HDL 43(L) >60 mg/dL 12/25/19 8:24 AM EST [facility] Estimated LDL 98 <130 mg/dL 12/25/2024 8:24 AM EST [facility] Comment: NCEP Guidelines: ?< 100 mg/dL ??Optimal 100 - 129 mg/dL ??Near Optimal/Above Optimal 130 - 159 mg/dL ??Borderline High 160 - 189 mg/dL ??High ??>/= 190 mg/dL ??Very High Cholesterol/HDL Ratio 3.9 0.0 - 5.0 Ratio 12/25/2024 8:24 AM EST [facility] Comment: Relative Risk ? Ratio - Male ? Ratio - Female ?0.5 ?3.4 ?3.3 ?1.0 ?5.0 ?4.4 ?2.0 ?9.6 ?7.1 ?3.0 ? 23.4 ? 11.0 Plasma/Serum 12/25/2024 5:33 AM EST 12/25/2024 6:08 AM EST Kristina PETERS LAB BLOOD ORDERABLES [facility] [address] [place] [address], * (ABNORMAL) Comprehensive Metabolic Panel (12/25/2024 5:33 AM EST) Glucose 131(H) 74 - 106 mg/dL 12/25/2024 6:35 AM EST [facility] Comment:Fasting: <100 mg/dL, Non-Fasting: <200 mg/dL (ADA 2005) Blood Urea Nitrogen (BUN) 10 9 - 23 mg/dL 12/25/2024 6:35 AM EST [facility] Creatinine 0.9 0.6 - 1.0 mg/dL 12/25/2024 6:35 AM EST [facility] eGFR 69 >59 12/25/2024 6:35 AM EST [facility] Comment:CKD-EPI (2020) in mL /min/1.73 sq meters. Sodium 139 136 - 145 mmol/L 12/25/2024 6:35 AM EST [facility] Potassium 4.4 3.4 - 4.5 mmol/L 12/25/2024 6:35 AM EST [facility] Chloride 107 98 - 107 mmol/L 12/25/2024 6:35 AM EST [facility] CO2 24 20 - 31 mmol/L 12/25/2024 6:35 AM EST [facility] Calcium 10.1 8.7 - 10.5 mg/dL 12/25/2024 6:35 AM EST [facility] Alkaline Phosphatase 125(H) 32 - 122 U/L 12/25/2024 6:35 AM EST [facility] Aspartate Aminotrans (AST) 79(H) <34 U/L 12/25/2024 6:35 AM EST [facility] Alanine Aminotrans (ALT) 98(H) 7 - 35 U/L 12/25/2024 6:35 AM EST [facility] Bilirubin, Total 0.6 0.3 - 1.2 mg/dL 12/25/2024 6:35 AM EST [facility] Protein, Total 7.5 5.7 - 8.2 g/dL 12/25/2024 6:35 AM EST [facility] Albumin 4.6 3.4 - 4.8 g/dL 12/25/2024 6:35 AM EST [facility] BUN/Creatinine Ratio 11 10.0 - 25.0 Ratio 12/25/2024 6:35 AM EST [facility] Globulin 2.9 1.5 - 3.9 g/dL 12/25/2024 6:35 AM EST [facility] Albumin/Globulin Ratio 1.6 1.5 - 2.5 Ratio 12/25/2024 6:35 AM EST [facility] Anion Gap 8 5 - 15 12/25/2024 6:35 AM EST [facility] Blood (Plasma/Serum) 12/25/2024 5:33 AM EST 12/25/2024 6:08 AM EST Kristina PETERS LAB BLOOD ORDERABLES [facility] [address] [place] [address], * Troponin I, High Sensitivity (Once) (12/24/2024 10:01 PM EST) Only the most recent of3 resultswithin the time period is included. Troponin I, High Sensitivity 29 <34 ng/L 12/24/2024 10:51 PM EST [facility] Delta (HS Troponin I) Unable to calculate result 12/24/2024 10:51 PM EST [facility] Blood Serum specimen / Unknown 12/24/2024 10:01 PM EST 12/24/2024 10:11 PM EST Kristina PETERS LAB BLOOD ORDERABLES [facility] [address] [place] [address], * CC CORONARY ANGIO W/LV, CC KELLEN PLACEMENT, 1ST ARTERY (12/24/2024 3:56 PM EST) Anatomical Region Laterality Modality X-Ray Angiograph y Narrative 12/24/2024 4:05 PM EST Table formatting from the original result was not included. Images from the original result were not included. [facility] Heart & Vascular [place] at [facility] - Cardiac Catheterization Laboratory PATIENT DEMOGRAPHIC INFORMATION Name: Heidi Hazel : 1955 69 y.o. Sex: female Gender: female Procedure Date: 12/24/2024 Referring Physician: Darian Valente PCP: No primary care provider on file. Procedure(s): Procedures: ??* CORONARY ANGIO W/LV ??* KELLEN PLACEMENT, 1ST ARTERY Indication: ? Deep Tissue Massage Therapist: Santosh Brady MD Maint Mechanic(s): Vivek Kenny and None Anginal Classification: Typical [...] unstable angina, abnormal stress test transferred from [facility]. ACCESS Access: Right Radial Artery Sheath(s): 6Fr Forrest Sheath Hemostasis Method: TR Band DIAGNOSTIC FINDINGS [...] mariana. Inflation time: 8 sec. Supplies used: [id number] CORONARY STENT SYSTEM SYNERGY XD MR 2.25MM 16MM DELIVERY SYS Intervention Angioplasty ??was performed following stent deployment. Maximum pressure: 14 mariana. Inflation time: 6 sec. Multiple inflations Supplies used: [id number] CATHETER BALLOON DIL NC EMERGE MR 2.5MM 12MM 2 LUM TAPER TIP Intervention Angioplasty ??was performed following stent deployment. Maximum pressure: 18 mariana. Inflation time: 6 sec. Supplies used: [id number] CATHETER BALLOON DIL NC EMERGE MR 2.5MM 12MM 2 LUM TAPER TIP Post-Intervention Lesion Assessment The intervention was successful. The guidewire crossed the lesion. Post-intervention NAS flow is 3. Lesion had 10 mm of its length treated. The patient was therapeutically anticoagulated with intravenous bivalirudin. ??A 6 [place] EBU 3.5 guide sat fairly well. ??The [...] ??The LAD flow was excellent Supplies used: [id number] CORONARY STENT SYSTEM SYNERGY XD MR 2.25MM [...] this patient that I request from a [facility] PA/COUNTY DIRECTOR/fellow/staff member. Santosh Brady MD [facility] Heart and Vascular [place] 12/24/2024 ??4:04 PM Coronary Findings Diagnostic Dominance: [...] mariana. Inflation time: 8 sec. Supplies Used: [id number] CORONARY STENT SYSTEM SYNERGY XD MR 2.25MM 16MM DELIVERY SYS Intervention: Angioplasty was performed following stent deployment. Maximum pressure: 14 mariana. Inflation time: 6 sec. Multiple inflations Supplies Used: [id number] CATHETER BALLOON DIL NC EMERGE MR 2.5MM 12MM 2 LUM TAPER TIP Intervention: Angioplasty was performed following stent deployment. Maximum pressure: 18 mariana. Inflation time: 6 sec. Supplies Used: [id number] CATHETER BALLOON DIL NC EMERGE MR 2.5MM 12MM 2 LUM TAPER TIP Post-Intervention Lesion Assessment: The intervention was successful. The guidewire crossed the lesion. Post-intervention NAS flow is 3. Lesion had 10 mm of its length treated. The patient was therapeutically anticoagulated with intravenous bivalirudin. A 6 [place] EBU 3.5 guide sat fairly well. The [...] The LAD flow was excellent Supplies Used: [id number] CORONARY STENT SYSTEM SYNERGY XD MR 2.25MM 16MM DELIVERY SYS There is a 0% residual stenosis post intervention. Cardiac Protocol CAD Kristina PETERS CV CARDIAC CATH ORDERABLES * (ABNORMAL) POCT Activated Clotting Time (ACT) (12/24/2024 3:45 PM EST) [facility] Activated Clotting Time, POC 407(A) 89 - 169 seconds Blood Blood specimen / Unknown Santosh Brady MD POINT OF CARE TEST O RDERABLES * Heparin Assay (Anti Xa) (12/24/2024 2:03 PM EST) [facility] Anti Xa 0.39 IU/mL 12/24/2024 3:42 PM EST [facility] Comment: (NOTE) Heparin Thromboembolic/Standard/Full Dose Protocol: Therapeutic [...] IV HEPARIN, UNFRACTIONATED 12/24/2024 2:02 PM EST [facility] Blood Plasma specimen / Unknown 12/24/2024 2:03 PM EST 12/24/2024 3:09 PM EST Juwan Willingham MD LAB BLOOD ORDERABLES [facility] [address] [place] [address], * (ABNORMAL) Complete Blood Count, WITHOUT Differential (routine) (12/24/2024 2:02 PM EST) White Blood Cell Count 6.0 4.0 - 11.0 Thou/uL 12/24/2024 3:12 PM EST [facility] Platelet Count 270 150 - 450 Thou/uL 12/24/2024 3:12 PM EST [facility] Hemoglobin 14.6 11.7 - 15.7 g/dL 12/24/2024 3:12 PM EST [facility] Hematocrit 43.4 35.0 - 47.0 % 12/24/2024 3:12 PM EST [facility] Red Blood Cell Count 4.66 4.00 - 5.40 Mil/uL 12/24/2024 3:12 PM EST [facility] MCV 93 80 - 100 fL 12/24/2024 3:12 PM EST [facility] MCH 31.3(H) 27.0 - 31.0 pg 12/24/2024 3:12 PM EST [facility] MCHC 33.6 30.0 - 36.0 g/dL 12/24/2024 3:12 PM EST [facility] RDW 12.2 11.5 - 14.5 % 12/24/2024 3:12 PM EST [facility] MPV 9.8 7.5 - 12.5 fL 12/24/2024 3:12 PM EST [facility] Blood Blood specimen / Unknown 12/24/2024 2:02 PM EST 12/24/2024 3:08 PM EST Juwan Willingham MD LAB BLOOD ORDERABLES [facility] [address] [place] [address], * (ABNORMAL) Basic Metabolic Panel (Routine) (12/24/2024 2:02 PM EST) Glucose 130(H) 74 - 106 mg/dL 12/24/2024 3:33 PM EST [facility] Comment:Fasting: <100 mg/dL, Non-Fasting: <200 mg/dL (ADA 2005) Blood Urea Nitrogen (BUN) 13 9 - 23 mg/dL 12/24/2024 3:33 PM EST [facility] Creatinine 0.8 0.6 - 1.0 mg/dL 12/24/2024 3:33 PM EST [facility] eGFR 80 >59 12/24/2024 3:33 PM EST [facility] Comment:CKD-EPI (2020) in mL /min/1.73 sq meters. Sodium 139 136 - 145 mmol/L 12/24/2024 3:33 PM EST [facility] Potassium 3.8 3.4 - 4.5 mmol/L 12/24/2024 3:33 PM EST [facility] Chloride 103 98 - 107 mmol/L 12/24/2024 3:33 PM EST [facility] CO2 27 20 - 31 mmol/L 12/24/2024 3:33 PM EST [facility] Anion Gap 9 5 - 15 12/24/2024 3:33 PM EST [facility] Calcium 10.2 8.7 - 10.5 mg/dL 12/24/2024 3:33 PM EST [facility] BUN/Creatinine Ratio 16 10.0 - 25.0 Ratio 12/24/2024 3:33 PM EST [facility] Blood (Plasma/Serum) 12/24/2024 2:02 PM EST 12/24/2024 3:08 PM EST Juwan Willingham MD LAB BLOOD ORDERABLES [facility] [address] [place] [address], * CR Chest Archive for Reference only (12/24/2024 10:48 AM EST) Brandi BIRD - 12/24/2024 10:48 AM EST This study has been auto finalized and does not contain a result. File Room Provider IMG DIGITIZE FILMS MARGE [phone] from Last 3 Months Advance Directives * Full Code (Latest Code Status on File) Date Activated Date Inactivated Comments 12/24/2024 1:32 PM Care Teams Gericare Aide Teacher Relationship Specialty Start Date End Date Ngoc Ordonez APRN [address] [place] [phone] PCP - General Family Medicine 12/24/24 Beau Hays MD [facility] [place] [address] Primary Monitor Technician Cardiovascular Disease 01/07/25
[2025-01-08 15:03] LABS: Parathyroid Hormone Intact 79.1 pg/mL (8.7-77.1)
[2025-01-11 16:07] LABS: Calcium, Ionized 5.2 mg/dL (4.7-5.5)
== END 2025-01-08 12:32 | disposition home or self-care (01) ==
LOC: HO.WFDLDS 12:31
PROVIDERS: Visit Provider Nurse Practitioner Family
DX: Z09 Encounter for follow-up examination after completed treatment for conditions other than malignant neoplasm (principal); I25.10 Atherosclerotic heart disease of native coronary artery without angina pectoris; E11.8 Type 2 diabetes mellitus with unspecified complications; I15.2 Hypertension secondary to endocrine disorders; D50.9 Iron deficiency anemia, unspecified; K59.01 Slow transit constipation; K76.0 Fatty (change of) liver, not elsewhere classified; E83.52 Hypercalcemia; R74.8 Abnormal levels of other serum enzymes; Z95.5 Presence of coronary angioplasty implant and graft; Z78.9 Other specified health status; Z71.89 Other specified counseling
CPT/HCPCS: 36415; 80053; 82330; 83690; 83970; 85027; 96127

== ENCOUNTER 2025-01-17 12:54 | Outpatient (AMB) | payer BC, SELFPAY ==
--- NOTE | 2025-01-17 12:59 | MHC.OFFVIS ---
Vital Signs 01/17/25 13:00 Height 5 ft Weight 177 lb BMI 34.6 BP 128/62 Blood Pressure Location Lt brachial Position Sitting Pulse 88 Pulse Source Pulse Oximeter Intake Visit Reasons: FACING [facility] JUMPBASTING/Leigh/HTN Hosp f/u ok per HS Allergies Penicillins Allergy (Severe, Verified 01/08/25 11:45) Unknown Sulfa (Sulfonamide Antibiotics) Allergy (Severe, Verified 01/08/25 11:45) Unknown adhesive Allergy (Intermediate, Verified 01/08/25 11:45) red patches lisinopril hctz Allergy (Severe, Uncoded 01/08/25 11:45) Anaphylaxis gentamycin Allergy (Mild, Uncoded 01/08/25 11:45) Itchy Eyes Medication List - Last Reconciled 01/17/25 by Flaco Sanders MD amlodipine 10 mg PO DAILY aspirin 81 mg PO DAILY atorvastatin 40 mg PO BEDTIME blood sugar diagnostic (OneTouch Verio test strips) POC testing TID blood sugar diagnostic (Blood Glucose Test strips) As directed buspirone 5 mg PO ONCE clobetasol 0.05% 1 appl topical BID clopidogrel (Plavix) 75 mg PO DAILY dapagliflozin propanediol (Farxiga) 10 mg PO DAILY ferrous sulfate 325 mg PO DAILY lancets (Tipping BucketTouch Delica Plus Lancet) POC testing TID loratadine (Allergy Relief (loratadine)) 10 mg PO DAILY losartan 100 mg PO DAILY magnesium 500 mg PO DAILY mecobalamin (vitamin B12) (B12 Active) 2,000 mcg (2 x 1,000 mcg) PO DAILY metformin 1,000 mg PO BID methocarbamol 750 mg PO NEEDED metoprolol succinate ER 25 mg PO DAILY naproxen 500 mg PO BID nitroglycerin 0.4 mg sublingual Q5M PRN pantoprazole 40 mg PO USEASDIRECTD polyethylene glycol 3350 (Miralax) 17 grams PO DAILY HPI Comments Details: Heidi is here for new patient consultation. It seems that she was having some atypical chest pains but nothing like clear-cut angina. That led to an exercise stress test which was abnormal as she had chest pain, shortness of breath as well as abnormal EKG. Subsequently, it appears that nuclear stress was being considered but not completed. As the patient was having some chest pressure and also lowish blood pressures and other symptoms like weakness, she came to the emergency room. Troponins were unremarkable but because of the positive stress test history, she was transferred for cardiac catheterization. Due to lack of bed at [facility], she went to [place]. Underwent diagonal stenting. Subsequently discharged home. She states she feels okay now. No clear anginal-type symptoms. Trying to be active. Various risk factors including diabetes, hypertension, dyslipidemia. [facility] Medical History Exhaustion Memory change Anxiety Hypertension Diabetes Abnormal colonoscopy Surgical History (Updated 01/17/25 @ 13:25 by Flaco Sanders MD) H/O eye surgery H/O cervical spine surgery History of back surgery H/O elbow surgery H/O wrist surgery H/O section Family History (Updated 12/03/24 @ 08:36 by Cirilo Krueger MA) Sister Mental health disorder Substance abuse Cardiovascular disease Hypertension Thyroid disease Advancing dementia Brother Cancer Cardiovascular disease Hypertension Paternal Grandfather Cancer Father Cardiovascular disease Hypertension Mother Hypertension Daughter Thyroid disease Social History (Updated 12/03/24 @ 08:31 by Cirilo Krueger MA) Household Members: Spouse Both parents involved: No Caregiver staying overnight: No Housing: House Are you a primary home care physical therapist to a significant other at home: No Do you presently have visiting nurse or other home services: No 75 years or older and lives alone: No Alcohol intake: former Patient Tobacco Use Status: Never used Tobacco e-Cigarette/Vaping Use: Never Used Second Hand Smoke Exposure: No service: No Current occupational status: retired Cognitive needs: No Hearing needs: No Vision needs: No Review of Systems Const Denies weakness ENT Denies dizziness Card Denies chest pain, Denies chest pain with activity, Denies syncope, Denies rapid heart rate, Denies pedal edema, Denies edema, Denies leg edema, Denies lightheadedness, Denies palpitations, Denies dyspnea, Denies dyspnea on exertion and Denies orthopnea Resp Denies cough, Denies dyspnea and Denies dyspnea on exertion GI Denies hematochezia and Denies change in stool character Musc Denies abnormal gait, Denies muscle cramps, Denies muscle weakness, Denies numbness, Denies radiating pain into limb and Denies tingling Neuro Denies abnormal gait, Denies dizziness, Denies syncope, Denies numbness, Denies tingling and Denies weakness Endo Denies palpitations Physical Exam Vital Signs: Last Vital Signs Pulse 88 01/17/25 13:00 BP 128/62 01/17/25 13:00 BMI result Body Mass Index 34.6 Const General: comfortable and no acute distress Orientation/consciousness: patient oriented x3 HEENT Other: Unremarkable Head: Yes normal to inspection Neck Neck: Yes normal visual inspection Chest Chest palpation & inspection: normal inspection of the chest Resp Auscultation: clear to auscultation bilaterally Cardio Palpation: normal PMI Heart sounds: S1 normal heart sound present, S2 normal heart sound present, no gallops, no murmurs and no rubs GI Palpation (GI): Soft to palpation Back/Spine/Pelvis Other: unremarkable Skin General skin exam: no rashes or lesions noted Neuro General: patient oriented x3 Extrem General: Yes normal to inspection Psych Mental Status: mental status grossly normal Assessment & Plan Assessment & Plan (1) Atherosclerotic cardiovascular disease: Code(s): I25.10 - Atherosclerotic heart disease of [place] coronary artery without angina pectoris Category: Medical (2) Status post coronary artery stent placement: Code(s): Z95.5 - Presence of coronary angioplasty implant and graft Category: Surgical (3) Diabetes mellitus type 2 with complications: Comment: htn and hld Code(s): E11.8 - Type 2 diabetes mellitus with unspecified complications Category: Medical (4) Hypertension: Code(s): I10 - Essential (primary) hypertension Category: Medical Qualifiers: Hypertension type: secondary to endocrine disorders Qualified Code(s): I15.2 - Hypertension secondary to endocrine disorders (5) Obesity (BMI 30.0-34.9): Code(s): E66.811 - Obesity, class 1 Category: Medical Plan Cardiac studies reviewed. EKG with underlying sinus rhythm at 79/Min; no significant ST-T changes and otherwise unremarkable. In the stress test, she was able to exercise for 7 METS on [place] protocol and reached target heart rate. Had complaints of shortness of breath and chest pressure. Positive EKG changes. Cardiac catheterization-95% stenosis in 1st diagonal. Left main, LAD, circumflex with minimal irregularities. Right coronary with 20-30% stenosis. Very small acute marginal branch has a 90% ostial stenosis. Status post KELLEN to 1st diagonal. Echocardiogram with LVEF of 61%. No wall motion abnormalities. Normal diastolic function. Left atrium mildly dilated. No significant valve findings. Overall, multiple cardiovascular risk factors, recent unstable angina type presentation, status post drug-eluting stent to 1st diagonal but otherwise no major findings. She can stay on long-term aspirin. Plavix for the next year. Continue statins but she also has abnormal LFTs and hence that will need to be followed up. If any significant increase in LFTs, then we may need to use an alternative medication. Optimal management of diabetes, hypertension. Weight loss as much able. Regular physical activity and start cardiac rehabilitation. We discussed about these today. She agrees. Follow-up in about 3 months. She will call with any interim concerns. 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
[2025-01-17 13:00] VITALS: BP 128/62; PULSE 88; BMI 34.6
--- OUTSIDE RECORDS SUMMARY | 2025-01-17 14:25 | XMS_ITS | Encounter Summary ---
Author Organization [facility] Address [address] [place] [address] Care Team Providers Care Tree Shear Operator Name Role Phone Ngoc Ordonez APRN Primary Care Provider + Encounter Details Date Type Department Care Team (Late st Contact Info) Description 12/24/2024 10:50 AM EST Ancillary Procedure [facility] [address] [place] [address] Provider, File Room Social History Tobacco Use Types Packs/Day Years Used Date Smoking Tobacco: Never Assessed [facility] Utilities Answer Date Recorded In the past 12 months has th e electric, gas, oil, or water [email or web address] threatened to shut off services in your [...] any time in the past 12 m [facility] [place], were you homeless or living in a penitentiary (including now)? No 12/25/2024 Sex and Gender [...] Provider IMG DIGITIZE FILMS Performing Organization Address City/State/[facility] Co de Phone Number MARGE [phone] documented in this encounter Visit Diagnoses Not on filedocumented in this encounter Care Teams Tree Shear Operator Relationship Specialty Start Date End Date Ngoc Ordonez APRN [address] [place] [id number] PCP - General Family Medicine 12/24/24 documented as of this encounter
--- OUTSIDE RECORDS SUMMARY | 2025-01-17 14:25 | XMS_ITS | Encounter Summary ---
Author Organization [facility] Address [address] [place] [address] Care Team Providers Care Svp Name Role Phone Ngoc Ordonez APRN Primary Care Provider + Reason for Visit * Auth/Cert Specialty Diagnoses / Procedures Referred By Rosa t Referred To Contact Diagnoses abnormal stress Procedures . Referral ID Status Reason Start Date Expiration Date Visits Re quested Visits Authorized [id number] 1 1 Encounter Details Date Type Department Care Team (Late st Contact Info) Description 12/24/2024 3:00 PM EST - 12/24/2024 3:58 PM EST Surgery [facility] Heart & Vascular [place] [facility] - Cardiac Catheterization Laboratory [address] [place] [address] Santosh Brady MD [address] [place] [address] [address] [place] [address] CORONARY ANGIO W/LV Social History Tobacco Use Types Packs/Day Years Used Date Smoking Tobacco: Never Assessed [facility] Utilities Answer Date Recorded In the past 12 months has [employer], gas, oil, or water [employer] threatened to shut off services in your [...] time in the past 12 m [facility], were you homeless or living in [...] Case IDs Date Procedure Surgeon Location Status [id number] 12/24/24 CORONARY ANGIO W/LV Santosh Brady MD SV X RAY NURSE Comp Consultations: Cardiology Discharge Medications Discharge Medications [...] MG tablet Commonly known as: CATAPRES Followup: [facility] of [address] [address] Ngoc Ordonez, WESTERN TACK ASSEMBLY LINE WORKER [address] [facility] [id number] Code Status: Full Code HPI and Hospital Course 69-year-old female with history of hypertension, fatty liver disease, diabetes, hyperlipidemia presented from [facility] for unstable angina S/p C with successful [...] states that she has cardiology appointment in [place] however, the appointment isnot until late February. [...] to the cardiac rehab department from your customer liaison. [facility] Card[facility] Referral is included in your cardiac rehab folder. The Cardiac rehab staff will schedule an initial assessment with you before starting the exercise program. When: Depending your diagnosis, when you can start cardiac rehab will vary: Open Heart Surgery - 4-6 weeks after surgery Angioplasty / Stents - 1-2 weeks after the procedure Heart Attack / Transplant- At customer liaison discretion Heart Failure - 6 weeks after discharge from hospital If you have any further questions or would like more information, please contact [facility] [address] [place] [address] Fax: [place] [address] [facility] - CARDIAC REHAB [address] [place] [id number] [place] [address] [facility] Address: [address] [place] [address] [address] [place] [employer]iac Rehab [...] to the cardiac rehab department from your customer liaison. [facility] Referral is [...] procedure Heart Attack / Transplant - At customer liaison discretion Heart Failure - 6 weeks after discharge from hospital Follow these instructions at home: Take ngjb-upj-yyponyl and prescription medicines only as told by [...] you have with your health care provider. [facility] [place] [address] [place] [address] [facility] - Cardiac Rehab [address] [place] [address] [facility] [place] [address] Document Released: 05/12/2006 Document Revised: 03/09/2015 Document Reviewed: 03/26/2014 ExitCare?? Patient Information ??2015 [employer]. This information is not intended to [...] disease, cervical fusions is a transfer from [facility] for unstable angina. Today, patient appears warm, [...] numbness or tingling in hand, equal b/l osteology teacher strength. NSTEMI s/p KELLEN to first diagonal - asa - plavix - atorvastatin 40 mg daily - metoprolol succinate 25 mg - follow up with OP customer liaison within 1-2 weeks of DC - scheduled January [address] Hays - pt will then follow up with her customer liaison in [place] - telemetry - Mg>2, K>4 - EKG [...] ANGIO W/LV; Surgeon: Santosh Brady MD; Location: X RAY NURSE; Service: Cardiovascular; Laterality: N/A; CC KELLEN PLACEMENT, 1ST ARTERY N/A 12/24/2024 Procedure: KELLEN PLACEMENT, 1ST ARTERY; Surgeon: Santosh Brady MD; Location: X RAY NURSE; Service: Cardiovascular; Laterality: N/A; No family history [...] original result were not included. [facility] Heart & Vascular [place] [facility] - Cardiac Catheterization Laboratory PATIENT DEMOGRAPHIC INFORMATION Name: Bridgett Jernigan : 1955 69 y.o. Sex: female Gender: female Procedure Date: 12/24/2024 Referring Physician: Darian Valente PCP: No primary care provider on file. Procedure(s): Procedures: * CORONARY ANGIO W/LV * KELLEN PLACEMENT, 1ST ARTERY Indication: Advanced Practice Professional: Santosh Brady MD Merchandising Assistant(s): Vivek Kenny and None Anginal Classification: Typical [...] unstable angina, abnormal stress test transferred from [facility]. ACCESS Access: Right Radial Artery Sheath(s): 6Fr Avon Sheath Hemostasis Method: TR Band DIAGNOSTIC FINDINGS [...] mariana. Inflation time: 8 sec. Supplies used: [id number] CORONARY STENT SYSTEM SYNERGY XD MR 2.25MM 16MM DELIVERY SYS Intervention Angioplasty was performed following stent deployment. Maximum pressure: 14 mariana. Inflation time: 6 sec. Multiple inflations Supplies used: [id number] CATHETER BALLOON DIL NC EMERGE MR 2.5MM 12MM 2 LUMTAPER TIP Intervention Angioplasty was performed following stent deployment. Maximum pressure: 18 mariana. Inflation time: 6 sec. Supplies used: [id number] CATHETER BALLOON DIL NC EMERGE MR 2.5MM 12MM 2 LUM TAPER TIP Post-Intervention Lesion Assessment The intervention was successful. The guidewirecrossed the lesion. Post-intervention NAS flow is 3. Lesion had 10 mm of its length treated. The patient was therapeutically anticoagulated with intravenous bivalirudin. A 6 [place] EBU 3.5 guide satfairly well. The lesion [...] The LAD flow was excellent Supplies used: [id number] CORONARY STENT SYSTEM SYNERGY XD MR 2.25MM [...] that I request from a [facility] PA/WESTERN TACK ASSEMBLY LINE WORKER/fellow/staff member. Santosh Brady MD [facility] Heart and Vascular [place] 12/24/2024 4:04 PM 24 hour telemetry: Normal [...] have discussed the case with the Physician Merchandising Assistant/WESTERN TACK ASSEMBLY LINE WORKER and we have formulated the plan. [...] Patient arrived on unit @ 1800 from cathead operator via stretcher accompanied by 2 Cardiac rolling machine operator's on [facility]. A + O x4. Vital signs stable. [...] Patient arrived on unit @ 1440 from [facility] via stretcher. A + O [...] disease, cervical fusions is a transfer from [facility] for unstable angina. Today, patient appears warm, [...] for LHC today. Per patient's record from [facility] H&H 14.3/41.5, platelets 232, potassium 4.3, BUN [...] -EKG for chest pain -Follow-up with outpatient customer liaison within 1 week of discharge Risk, benefits [...] disease, cervical fusions is a transfer from [facility] for unstable angina. Over the past couple [...] or drug use. Patient just moved from [place] to [facility]. [place] seen by her customer liaison in [place]. Review of systems: Review of Systems Constitutional: [...] 12:36 PM EST PATIENT DISCHARGED 12/25/2024 Per [facility] General Statutes Sec: 38a-226c: Notification of determination shall be mailed or otherwise communicated within 2 business days of receipt of all information necessary to complete the review. Please fax authorization determination to [phone] or call [phone]. * Case Coordination-Payor Communication - Romero Heck - 12/25/2024 12:36 PM EST 2nd request: Please follow-up with the Clinical Resource Management Department via fax ([phone]) or phone ([phone]) with status of authorization ELIECER. Thank you. [...] will follow up with own cardio in [facility]. No services needed. Patient in agreement. [...] Does the Patient Have a CT DNR [place] Bracelet or State DNR Form?: no Clinical [...] pt's husbands phone kept going straight to [facility]. Angiomax stopped per orders at 1800. Plan for TR band to be removed at 2000. Report called and given to Neisha ALONZO. Pt transported on monitor with RN assist. Handoff completed at [facility]. * Case Coordination-Payor Communication - [...] disease, cervical fusions is a transfer from [facility] for unstable angina. Today, patient appears warm, [...] stress test so will send patient for [facility] today. Per patient's record from [facility] H&H 14.3/41.5, platelets 232, potassium 4.3, BUN [...] nor have tamponade physiology. Patient consented for [facility]. Vitals: Date/Time Temp Pulse Resp BP SpO2 [...] ECGs available Confirmed by MD Myron, Sanya ([id number]) on 12/24/2024 2:14:31 PM Imaging Studies Echocardiogram [...] A1C 6.5(H) <5.7 % 12/25/2024 5:38 PM [facility] Comment: A1c% ? Interpretation 5.7 - 6.0 ?Increase risk of diabetes 6.1 - 6.4 ?Higher risk of diabetes > or = 6.5 ?? Consistent with diabetes Diabetes Care, 33(Supp 1):S1-S61, 2010 Estimated Average Glucose 140 mg/dL 12/25/2024 5:38 PM [facility] Blood Blood specimen / Unknown 12/25/2024 8:00 AM EST 12/25/2024 8:12 AM EST Keenan Arreguin MD LAB BLOOD ORDERABLES Performing Organization Address City/[facility]/ZIP Co de Phone Number [address] [address], [address] [address] * (ABNORMAL) POCT Glucose, Fingerstick (12/25/2024 7:39 AM EST) POC Glucose 136(H) 65 - 99 mg/dL 12/25/2024 7:46 AM EST Comment:Notified RN Blood specimen / Unknown 12/25/2024 7:39 AM EST 12/25/2024 7:46 AM EST Keenan Arreguin MD POINT OF CARE TEST O RDERABLES Performing Organization Address City/[facility]/ZIP Co de Phone Number HOSPITAL LAB See Below * (ABNORMAL) LIPID PANEL (12/25/2024 5:33 AM EST) Cholesterol, Total 168 <200 mg/dL 2024 8:24 AM EST [facility] Triglycerides 135 <150 mg/dL 12/25/2024 8:24 AM EST [facility] Cholesterol, HDL 43(L) >60 mg/dL 12/25/19 8:24 AM EST [facility] Estimated LDL 98 <130 mg/dL 12/25/2024 8:24 AM EST [facility] Comment: NCEP Guidelines: ?< 100 mg/dL ??Optimal 100 - 129 mg/dL ??Near Optimal/Above Optimal 130 - 159 mg/dL ??Borderline High 160 - 189 mg/dL ??High ??>/= 190 mg/dL ??Very High Cholesterol/HDL Ratio 3.9 0.0 - 5.0 Ratio 12/25/2024 8:24 AM EST [facility] Comment: Relative Risk ? Ratio - Male ? Ratio - Female ?0.5 ?3.4 ?3.3 ?1.0 ?5.0 ?4.4 ?2.0 ?9.6 ?7.1 ?3.0 ? 23.4 ? 11.0 Plasma/Serum 12/25/2024 5:33 AM EST 12/25/2024 6:08 AM EST Kristina PETERS LAB BLOOD ORDERABLES Performing Organization Address [facility] de Phone Number [facility] [address] [place] [address], * Protime-INR (12/25/2024 5:33 AM EST) Anticoagulant IV HEPARIN, UNFRACTIONATED 12/24/2024 11:01 PM EST [facility] Prothrombin Time (PT) 12.1 10.0 - 13.5 seconds 12/25/2024 6:19 AM EST [facility] INR 1.1 12/25/2024 6:19 AM EST [facility] Comment:INR Therapeutic Rang es: Standard dose anticoagulant 2.0 to 3.0, High dose anticoagulant 2.5-3.5. Blood Plasma specimen / Unknown 12/25/2024 5:33 AM EST 12/25/2024 6:08 AM EST Easton Aguirre PA-C LAB BLOOD ORDERABLES Performing Organization Address [facility] [place] [address], * Partial Thromboplastin Time (PTT) (12/25/2024 5:33 AM EST) Anticoagulant IV HEPARIN, UNFRACTIONATED 12/24/2024 11:01 PM EST [facility] Partial Thromboplastin Time (PTT) 33 26 - 37 seconds 12/25/2024 6:19 AM EST [facility] Blood Plasma specimen / Unknown 12/25/2024 5:33 AM EST 12/25/2024 6:08 AM EST Easton Aguirre PA-C LAB BLOOD ORDERABLES [facility] [address] [place] [address], * (ABNORMAL) Comprehensive Metabolic Panel (12/25/2024 5:33 AM EST) Glucose 131(H) 74 - 106 mg/dL 12/25/2024 6:35 AM EST [facility] Comment:Fasting: <100 mg/dL, Non-Fasting: <200 mg/dL (ADA 2005) Blood Urea Nitrogen (BUN) 10 9 - 23 mg/dL 12/25/2024 6:35 AM EST [facility] Creatinine 0.9 0.6 - 1.0 mg/dL 12/25/2024 6:35 AM EST [facility] eGFR 69 >59 12/25/2024 6:35 AM EST [facility] Comment:CKD-EPI (2020) in mL /min/1.73 sq meters. Sodium 139 136 - 145 mmol/L 12/25/2024 6:35 AM EST [facility] Potassium 4.4 3.4 - 4.5 mmol/L 12/25/2024 6:35 AM EST [facility] Chloride 107 98 - 107 mmol/L 12/25/2024 6:35 AM EST [facility] CO2 24 20 - 31 mmol/L 12/25/2024 6:35 AM EST [facility] Calcium 10.1 8.7 - 10.5 mg/dL 12/25/2024 6:35 AM EST [facility] Alkaline Phosphatase 125(H) 32 - 122 U/L 12/25/2024 6:35 AM EST [facility] Aspartate Aminotrans (AST) 79(H) <34 U/L 12/25/2024 6:35 AM EST [facility] Alanine Aminotrans (ALT) 98(H) 7 - 35 U/L 12/25/2024 6:35 AM EST [facility] Bilirubin, Total 0.6 0.3 - 1.2 mg/dL 12/25/2024 6:35 AM EST [facility] Protein, Total 7.5 5.7 - 8.2 g/dL 12/25/2024 6:35 AM EST [facility] Albumin 4.6 3.4 - 4.8 g/dL 12/25/2024 6:35 AM [facility] BUN/Creatinine Ratio 11 10.0 - 25.0 Ratio 12/25/2024 6:35 AM EST [facility] Globulin 2.9 1.5 - 3.9 g/dL 12/25/2024 6:35 AM [facility] Albumin/Globulin Ratio 1.6 1.5 - 2.5 Ratio 12/25/2024 6:35 AM EST [facility] Anion Gap 8 5 - 15 12/25/2024 6:35 AM [facility] Blood (Plasma/Serum) 12/25/2024 5:33 AM EST 12/25/2024 6:08 AM EST Kristina PETERS LAB BLOOD ORDERABLES [facility] [address] [place] [address], * (ABNORMAL) Complete Blood Count, with Differential [...] - 0.10 Thou/uL 12/25/2024 6:12 AM EST [facility] Abs Lymphocytes Auto 1.48(L) 1.50 - 4.50 Thou/uL 12/25/2024 6:12 AM EST [facility] Abs Monocytes Auto 0.55 0.20 - 1.50 Thou/uL 12/25/2024 6:12 AM EST [facility] Abs Eosinophils Auto 0.24 0.00 - 0.70 Thou/uL 12/25/2024 6:12 AM EST [facility] Abs Basophils Auto 0.11 0.00 - 0.20 Thou/uL 12/25/2024 6:12 AM EST [facility] Blood Blood specimen / Unknown 12/25/2024 5:33 AM EST 12/25/2024 6:08 AM EST Kristina PETERS LAB BLOOD ORDERABLES Performing Organization Address City/[facility]/[place] [address], * Troponin I, High Sensitivity (Once) (12/24/2024 10:01 PM EST) Pathologist [facility] Troponin I, High Sensitivity 29 <34 ng/L 12/24/2024 10:51 PM EST [facility] Delta (HS Troponin I) Unable to calculate result 12/24/2024 10:51 PM EST [facility] Blood Serum specimen / Unknown 12/24/2024 10:01 PM EST 12/24/2024 10:11 PM EST Kristina PETERS [place] [address], * (ABNORMAL) POCT Glucose, Fingerstick (12/24/2024 8:23 PM EST) POC Glucose 208(H) 65 - 99 mg/dL 12/24/2024 8:30 PM EST Comment:Notified RN Blood specimen / Unknown 12/24/2024 8:23 PM EST 12/24/2024 8:30 PM EST Juwan Willingham MD POINT OF CARE TEST O RDERABLES Performing Organization Address City/[facility]/ZIP Co de Phone Number HOSPITAL LAB See Below * Troponin I, High Sensitivity (Once) (12/24/2024 6:23 PM EST) Troponin I, High Sensitivity 5 <34 ng/L 12/24/2024 7:20 PM EST [facility] Delta (HS Troponin I) Unable to calculate result 12/24/2024 7:20 PM EST [facility] Blood Serum specimen / Unknown 12/24/2024 6:23 PM EST 12/24/2024 6:25 PM EST Kristina PETERS LAB BLOOD ORDERABLES Performing Organization Address [facility] Co de Phone Number [facility] [address] [place] [address], * (ABNORMAL) POCT Glucose, Fingerstick (12/24/2024 6:15 PM EST) POC Glucose 150(H) 65 - 99 mg/dL 12/24/2024 6:23 PM EST Comment:Notified RN Blood specimen / Unknown 12/24/2024 6:15 PM EST 12/24/2024 6:23 PM EST Juwan Willingham MD POINT OF CARE TEST O RDERABLES HOSPITAL LAB See Below * ECG 12 lead (12/24/2024 4:09 PM EST) Ventricular rate 68 BPM EKG [facility] Atrial rate 68 BPM EKG [facility] P-R interval 180 ms EKG [facility] QRS duration 90 ms EKG [facility] Q-T interval 420 ms EKG [facility] QTC calculation (Bazett) 447 ms EKG [facility] P axis 34 degrees EKG [facility] R axis 10 degrees EKG [facility] T axis 41 degrees EKG [facility] 12/24/2024 4:09 PM EST Narrative EKG [facility] - 12/24/2024 4:23 PM EST Normal sinus rhythm Cannot rule out Anterior infarct , age undetermined Abnormal ECG When compared with ECG of 24-Dec-2024 13:55, No significant change was found Confirmed by MD Hays Venu ([id number]) on 12/24/2024 4:23:39 PM Procedure Note Beau Hays MD - 12/24/2024 Normal sinus rhythm Cannot rule out Anterior infarct , age undetermined Abnormal ECG When compared with ECG of 24-Dec-2024 13:55, No significant change was found Confirmed by MD Hays Venu ([id number]) on 12/24/2024 4:23:39 PM Juwan Willingham MD ECG ORDERABLES EKG [facility] * CC CORONARY ANGIO W/LV, CC KELLEN PLACEMENT, 1ST ARTERY (12/24/2024 3:56 PM EST) Anatomical Region Laterality Modality X-Ray Angiograph y Narrative 12/24/2024 4:05 PM EST Table formatting from the original result was not included. Images from the original result were not included. [facility] Heart & Vascular [place] [facility] - Cardiac Catheterization Laboratory PATIENT DEMOGRAPHIC INFORMATION Name: Bridgett Jernigan : 1955 69 y.o. Sex: female Gender: female Procedure Date: 12/24/2024 Referring Physician: Darian Valente PCP: No primary care provider on file. Procedure(s): Procedures: ??* CORONARY ANGIO W/LV ??* KELLEN PLACEMENT, 1ST ARTERY Indication: ? Advanced Practice Professional: Santosh Brady MD Merchandising Assistant(s): Vivek Kenny and None Anginal Classification: Typical [...] unstable angina, abnormal stress test transferred from [facility]. ACCESS Access: Right Radial Artery Sheath(s): 6Fr Avon Sheath Hemostasis Method: TR Band DIAGNOSTIC FINDINGS [...] mariana. Inflation time: 8 sec. Supplies used: [id number] CORONARY STENT SYSTEM SYNERGY XD MR 2.25MM 16MM DELIVERY SYS Intervention Angioplasty ??was performed following stent deployment. Maximum pressure: 14 mariana. Inflation time: 6 sec. Multiple inflations Supplies used: [id number] CATHETER BALLOON DIL NC EMERGE MR 2.5MM 12MM 2 LUM TAPER TIP Intervention Angioplasty ??was performed following stent deployment. Maximum pressure: 18 mariana. Inflation time: 6 sec. Supplies used: [id number] CATHETER BALLOON DIL NC EMERGE MR 2.5MM [...] ??The LAD flow was excellent Supplies used: [id number] CORONARY STENT SYSTEM SYNERGY XD MR 2.25MM [...] that I request from a [facility] PA/WESTERN TACK ASSEMBLY LINE WORKER/fellow/staff member. Santosh Brady MD [facility] Heart [facility] Vascular [place] 12/24/2024 ??4:04 PM Coronary Findings Diagnostic Dominance: [...] mariana. Inflation time: 8 sec. Supplies Used: [id number] CORONARY STENT SYSTEM SYNERGY XD MR 2.25MM 16MM DELIVERY SYS Intervention: Angioplasty was performed following stent deployment. Maximum pressure: 14 mariana. Inflation time: 6 sec. Multiple inflations Supplies Used: [id number] CATHETER BALLOON DIL NC EMERGE MR 2.5MM 12MM 2 LUM TAPER TIP Intervention: Angioplasty was performed following stent deployment. Maximum pressure: 18 mariana. Inflation time: 6 sec. Supplies Used: [id number] CATHETER BALLOON DIL NC EMERGE MR 2.5MM [...] The LAD flow was excellent Supplies Used: [id number] CORONARY STENT SYSTEM SYNERGY XD MR 2.25MM [...] (Anti Xa) (12/24/2024 2:03 PM EST) Pathologist [facility] Anti Xa 0.39 IU/mL 12/24/2024 3:42 PM EST [facility] Comment: (NOTE) Heparin Thromboembolic/Standard/Full Dose Protocol: [...] IV HEPARIN, UNFRACTIONATED 12/24/2024 2:02 PM EST [facility] Blood Plasma specimen / Unknown 12/24/2024 2:03 PM EST 12/24/2024 3:09 PM EST Juwan Willingham MD LAB BLOOD ORDERABLES Performing Organization Address [facility] de Phone Number [facility] [address] [place] [address], * Troponin I, High Sensitivity (12/24/2024 2:02 PM EST) [facility] Troponin I, High Sensitivity <3 <34 ng/L 12/24/2024 3:33 PM EST [facility] Delta (HS Troponin I) NO PREVIOUS RESULT 12/24/2024 3:33 PM EST [facility] Serum specimen / Unknown 12/24/2024 2:02 PM EST 12/24/2024 3:08 PM EST Juwan Willingham MD LAB BLOOD ORDERABLES Performing Organization Address [facility] de Phone Number [facility] [address] [place] [address], * (ABNORMAL) Complete Blood Count, WITHOUT Differential (routine) (12/24/2024 2:02 PM EST) [facility] White Blood Cell Count 6.0 4.0 - 11.0 Thou/uL 12/24/2024 3:12 PM EST [facility] Platelet Count 270 150 - 450 Thou/uL 12/24/2024 3:12 PM EST [facility] Hemoglobin 14.6 11.7 - 15.7 g/dL 12/24/2024 3:12 PM EST [facility] Hematocrit 43.4 35.0 - 47.0 % 12/24/2024 3:12 PM EST [facility] Red Blood Cell Count 4.66 4.00 - 5.40 Mil/uL 12/24/2024 3:12 PM EST [facility] MCV 93 80 - 100 fL 12/24/2024 3:12 PM EST [facility] MCH 31.3(H) 27.0 - 31.0 pg 12/24/2024 3:12 PM EST [facility] MCHC 33.6 30.0 - 36.0 g/dL 12/24/2024 3:12 PM EST [facility] RDW 12.2 11.5 - 14.5 % 12/24/2024 3:12 PM EST [facility] MPV 9.8 7.5 - 12.5 fL 12/24/2024 3:12 PM EST [facility] Blood Blood specimen / Unknown 12/24/2024 2:02 PM EST 12/24/2024 3:08 PM EST Juwan Willingham MD LAB BLOOD ORDERABLES [facility] [address] [place] [address], * (ABNORMAL) Basic Metabolic Panel (Routine) (12/24/2024 2:02 PM EST) Glucose 130(H) 74 - 106 mg/dL 12/24/2024 3:33 PM EST [facility] Comment:Fasting: <100 mg/dL, Non-Fasting: <200 mg/dL (ADA 2005) Blood Urea Nitrogen (BUN) 13 9 - 23 mg/dL 12/24/2024 3:33 PM EST [facility] Creatinine 0.8 0.6 - 1.0 mg/dL 12/24/2024 3:33 PM EST [facility] eGFR 80 >59 12/24/2024 3:33 PM EST [facility] Comment:CKD-EPI (2020) in mL /min/1.73 sq meters. Sodium 139 136 - 145 mmol/L 12/24/2024 3:33 PM EST [facility] Potassium 3.8 3.4 - 4.5 mmol/L 12/24/2024 3:33 PM EST [facility] Chloride 103 98 - 107 mmol/L 12/24/2024 3:33 PM EST [facility] CO2 27 20 - 31 mmol/L 12/24/2024 3:33 PM EST [facility] Anion Gap 9 5 - 15 12/24/2024 3:33 PM EST [facility] Calcium 10.2 8.7 - 10.5 mg/dL 12/24/2024 3:33 PM EST [facility] BUN/Creatinine Ratio 16 10.0 - 25.0 Ratio 12/24/2024 3:33 PM EST [facility] Blood (Plasma/Serum) 12/24/2024 2:02 PM EST 12/24/2024 3:08 PM EST Juwan Willingham MD LAB BLOOD ORDERABLES [facility] [address] [place] [address], * ECG 12 lead (12/24/2024 1:55 PM EST) Ventricular rate 74 BPM EKG [facility] Atrial rate 74 BPM EKG [facility] P-R interval 174 ms EKG [facility] [facility] Q[facility] duration 90 ms EKG [facility] Q-T interval 394 ms EKG [facility] QTC calculation (Bazett) 438 ms EKG [facility] P axis 36 degrees EKG [facility] R axis 3 degrees EKG [facility] T axis 71 degrees EKG [facility] 12/24/2024 1:55 PM EST Narrative EKG [facility] - 12/24/2024 2:14 PM EST Normal sinus rhythm Nonspecific T wave abnormality Abnormal ECG No previous ECGs available Confirmed by MD Sanches Osman ([id number]) on 12/24/2024 2:14:31 PM Procedure Note Sanya Sanches MD - 12/24/2024 Normal sinus rhythm Nonspecific T wave abnormality Abnormal ECG No previous ECGs available Confirmed by MD Sanches Osman ([id number]) on 12/24/2024 2:14:31 PM Juwan Willingham MD ECG [facility] documented in this encounter Visit Diagnoses Diagnosis [...] = 50 units/mL, Indication for Anticoagulation: Acute [place] 1425 (New Bag - Provider: Yuki Wu [...] Transfer Provider - Reason: Unreviewed Transfer Orders)1810 ([facility] Unhold - Provider: User Epic) glucose [...] Transfer Provider - Reason: Unreviewed Transfer Orders)1810 ([facility] Unhold - Provider: User Epic) glucose [...] Transfer Provider - Reason: Unreviewed Transfer Orders)1810 ([facility] Unhold - Provider: User Epic) iohexol [...] injection. documented in this encounter Care Teams Svp Relationship Specialty Start Date End Date Ngoc Ordonez APRN [address] [place] [address] [phone] PCP - General Family Medicine 12/24/24 documented as of this encounter
--- OUTSIDE RECORDS SUMMARY | 2025-01-17 14:25 | XMS_ITS | Encounter Summary ---
Author Organization Formerly [facility] Address [address] [place] [address] Care Team Providers Care Insulation Worker Apprentice Name Role Phone Ngoc Ordonez APRN Primary Care Provider + Beau Hays MD Unavailable [phone] Encounter Details Date Type Department Care Team (Latest Contact Info) Description 01/07/2025 Travel Social History Tobacco Use Types Packs/Day Years Used Date Smoking Tobacco: Never Assessed [facility] Utilities Answer Date Recorded In the past 12 months has [employer], gas, oil, or water [employer] threatened to shut off services in your [...] on filedocumented in this encounter Care Teams Insulation Worker Apprentice Relationship Specialty Start Date End Date Ngoc Ordonez APRN [address] [place] [phone] PCP - General Family Medicine 12/24/24 Beau Hays MD [address] [place] [address] Primary Shoes Hand Sewer Cardiovascular Disease 01/07/25 documented as of this encounter
--- OUTSIDE RECORDS SUMMARY | 2025-01-17 14:25 | XMS_ITS | Encounter Summary ---
Author Organization [facility] Address [address] [place] [id number] Care Team Providers Care Casino Gaming Inspector Name Role Phone Ngoc Ordonez APRN Primary Care Provider + Beau Hays MD Unavailable [phone] Reason for Visit * Reason Comments Hospital Follow-up Hospital follow up Encounter Details Date Type Department Care Team (Late st Contact Info) Description 01/07/2025 10:40 AM EST Office Visit [facility] [place] [address] [phone] Beau Hays MD [address] [place] [id number] Hospital discharge follow-up (Primary Dx); Chest pain, unspecified type Discharge Disposition: Home or Self Care Social History Tobacco Use Types Packs/Day Years Used Date Smoking Tobacco: Never Assessed [facility] Utilities Answer Date Recorded In the past 12 months has [employer], oil, or water [employer] [facility] threatened to shut off services in your [...] any time in the past 12 m [facility], were you homeless or living in a longterm (including now)? No 12/25/2024 Sex and Gender [...] Ordonez, YARELIS 69F Patient was recently at [facility] with NSTEMI and is s/p KELLEN of [employer]. All available records from recent hospital visit (including lab results, notes, imaging studies/reports) have been reviewed by me. No past medical history on file. Past Surgical History: Procedure Laterality Date CC CORONARY ANGIO W/LV N/A 12/24/2024 Procedure: CORONARY ANGIO W/LV; Surgeon: Santosh Brady MD; Location: [facility]; Service: Cardiovascular; Laterality: N/A; CC KELLEN PLACEMENT, 1ST ARTERY N/A 12/24/2024 Procedure: KELLEN PLACEMENT, 1ST ARTERY; Surgeon: Santosh Brady MD; Location: [facility]; Service: Cardiovascular; Laterality: N/A; No family history [...] & Plan 69F Patient was recently at [facility] with NSTEMI and is s/p [...] addressed. Beau Hays MD [facility] [place] 01/07/25 11:01 AM documented in this encounter Plan of Treatment Not on file documented as of this encounter Procedures Procedure Name Priority Date/Time Associated Diagnosis Comments ECG 12-LEAD Routine 01/07/2025 10:30 AM EST Hospital discharge follow-up documented in this encounter Results * ECG 12 lead (01/07/2025 10:30 AM EST) Ventricular rate 71 BPM EKG [facility] Atrial rate 71 BPM EKG [facility] P-R interval 186 ms EKG [facility] QRS duration 90 ms EKG [facility] Q-T interval 362 ms EKG [facility] QTC calculation (Bazett) 393 ms EKG [facility] P axis 43 degrees EKG [facility] R axis 10 degrees EKG [facility] T axis 46 degrees EKG [facility] 01/07/2025 10:3 0 AM EST Narrative EKG [facility] - 01/07/2025 2:06 PM EST Normal sinus rhythm Possible Anterior infarct (cited on or before 24-Dec-2024) Abnormal ECG When compared with ECG of 24-Dec-2024 16:09, QT has shortened Confirmed by MD Sukhi, Gem ([id number]) on 01/07/2025 2:06:51 PM Procedure Note Gem Isbell MD - 01/07/2025 Normal sinus rhythm Possible Anterior infarct (cited on or before 24-Dec-2024) Abnormal ECG When compared with ECG of 24-Dec-2024 16:09, QT has shortened Confirmed by MD Isbell Anja ([id number]) on 01/07/2025 2:06:51 PM Gem Isbell MD ECG ORDERABLES EKG [facility] documented in this encounter Visit Diagnoses Diagnosis Hospital discharge follow-up- Primary Other follow-up examination Chest pain, unspecified type documented in this encounter Care Teams Casino Gaming Inspector Relationship Specialty Start Date End Date Ngoc Ordonez APRN [address] [place] [phone] PCP - General Family Medicine 12/24/24 Beau Hays MD Counts include 234 beds at the [facility] [place] [address] Primary Hosted Services Analyst Cardiovascular Disease 01/07/25 documented as of this encounter
--- OUTSIDE RECORDS SUMMARY | 2025-01-17 14:25 | XMS_ITS | Encounter Summary ---
Author Organization [facility] Address [address] [place] [address] Care Team Providers Care Oil Field Operator Name Role Phone Ngoc Ordonez APRN Primary Care Provider + Baeu Hays MD Unavailable [phone] Encounter Details Date Type Department Care Team (Late st Contact Info) Description 01/07/2025 Orders Only formerly [facility] [place] [address] [phone] Yaima De Paz APRN [address] [place], [place] [address] Chest pain, unspecified type (Primary Dx); NSTEMI (non-ST elevated myocardial infarction) (HCC) Social History Tobacco Use Types Packs/Day Years Used Date Smoking Tobacco: Never Assessed [facility] Utilities Answer Date Recorded In the past 12 months has [employer], gas, oil, or water [employer] threatened to shut off services in your [...] any time in the past 12 m [facility], were you homeless or living [...] unspecified documented in this encounter Care Teams Oil Field Operator Relationship Specialty Start Date End Date Ngoc Ordonez APRN [address] [place] [address] [phone] PCP - General Family Medicine 12/24/24 Beau Hays MD [address] [place], [place] [phone] Primary Motor Assembler Cardiovascular Disease 01/07/25 documented as of this encounter
--- OUTSIDE RECORDS SUMMARY | 2025-01-17 14:26 | XMS_ITS | Encounter Summary ---
Author Organization [facility] Address [address] [place] [id number] Care Team Providers Care Consulting It Architect Name Role Phone Ngoc Ordonez APRN Primary Care Provider + Reason for Referral * Cardiology (Routine) - Closed Specialty Diagnoses / Procedures Referred By Contact Referred To Contact Cardiovascular Disease / Cardiac Rehabilitation Diagnoses NSTEMI (non-ST elevated myocardial infarction) (HCC) Keenan Arreguin MD [address] [place] [address] [facility] [address] [place] [phone] Referral ID Status Reason Start Date Expiration Date V isits Requested Visits Authorized [id number] Closed Support Services 12/25/2024 12/26/2025 1 1 Question Answer Indication for Cardiac Rehab Angioplasty/Stent Reason for Visit * Auth/Cert Specialty Diagnoses / Procedures Referred By Contac t Referred To Contact Diagnoses abnormal stress Procedures . Referral ID Status Reason Start Date Expiration Date Visits Re quested Visits Authorized [id number] 1 1 Encounter Details Date Type Department Care Team (Latest Contact Info) Description 12/24/2024 1:26 PM EST - 12/25/2024 12:36 PM EST Hospital Encounter [facility] [address] [place] [id number] Juwan Willingham MD [address] [place] [address] Keenan Arreguin MD [address] [place] [address] NSTEMI (non-ST elevated myocardial infarction) (HCC) (Primary Dx) Discharge Disposition: Home or Self Care Social History Tobacco Use Types Packs/Day Years Used Date Smoking Tobacco: Never Assessed [facility] Utilities Answer Date Recorded In the [...] any time in the past 12 m [facility], were you homeless or living in a care home (including now)? No 12/25/2024 Sex and [...] Primary Care Physician at Discharge: Ngoc Ordonez, DEALER ANALYST Discharge Date: 12/25/2024 Primary Discharge Diagnosis Unstable angina Secondary Discharge Diagnosis No past medical history on file. Procedure and Studies during Hospitalization: Surgical/Procedural Cases on this Admission Case IDs Date Procedure Surgeon Location Status [id number] 12/24/24 CORONARY ANGIO W/LV Santosh Brady MD SV HORIZONTAL BORING MILL OPERATOR Comp Consultations: Cardiology Discharge Medications Discharge [...] MG tablet Commonly known as: CATAPRES Followup: [facility] Re[facility] of [address] [phone] Ngoc Ordonez, DEALER ANALYST [address] [facility] [id number] Code Status: Full Code HPI and Hospital Course 69-year-old female with history of hypertension, fatty liver disease, diabetes, hyperlipidemia presented from [facility] for unstable angina S/p [facility] with successful stenting of severe and stable first diagonal disease with KELLEN And doing well postprocedure. Ambulating without any recurrence of chest pain. Continue uninterrupted aspirin, Plavix, statin Started on metoprolol succinate 25 mg daily Continue home losartan, Norvasc Discussed with cardiology-will hold clonidine until follow-up in cardiology clinic for further adjustment The patient states that she has cardiology appointment in [place] however, the appointment is not until late [...] to the cardiac rehab department from your erecting crane operator. [facility] Referral is included in your cardiac rehab folder. The Cardiac rehab staff will schedule an initial assessment with you before starting the exercise program. When: Depending your diagnosis, when you can start cardiac rehab will vary: Open Heart Surgery - 4-6 weeks after surgery Angioplasty / Stents - 1-2 weeks after the procedure Heart Attack / Transplant- At erecting crane operator discretion Heart Failure - 6 weeks after discharge from hospital If you have any further questions or would like more information, please contact [place] [id number] [place] [address] Fax: [facility] [address] [place] [address] [facility] - CARD[facility]AC RE[facility] [address] [place] [address] [place] [address] [facility] Address: [address] [place] [address] [address], [place] [address] [place] Society for Cardiac Rehab [...] to the cardiac rehab department from your erecting crane operator. [facility] Referral is included in your cardiac rehab folder. The Cardiac Rehab staff will schedule an initial assessment with you before starting the exercise program. When: Depending on your diagnosis, when you can start cardiac rehab will vary: Open Heart Surgery - 4-6 weeks after surgery Angioplasty / Stents - 1-2 weeks after the procedure Heart Attack / Transplant - At erecting crane operator discretion Heart Failure - 6 weeks after discharge from hospital Follow these instructions at home: Take odqv-eem-owfzrfz and prescription medicines only as told by [...] you have with your health care provider. [facility] [address] [place] [address] [place] [address] [facility] - Cardiac Rehab [address] [place] [address] [facility] [address] [place] [address] Document Released: 05/12/2006 Document Revised: 03/09/2015 Document Reviewed: 03/26/2014 ExitCare?? Patient Information ??2015 [employer]. This information is not intended to replace [...] PCP: Ngoc Ordonez APRN Impression & Recommendations rBidgett Jernigan is a 69-year-old female with past medical history of hypertension, fatty liver disease, cervical fusions is a transfer from [facility] for unstable angina. Today, patient appears warm, [...] numbness or tingling in hand, equal b/l medical office specialist strength. NSTEMI s/p KELLEN to first diagonal - asa - plavix - atorvastatin 40 mg daily - metoprolol succinate 25 mg - follow up with OP erecting crane operator within 1-2 weeks of DC - scheduled January [address] Hays - pt will then follow up with her erecting crane operator in [place] - telemetry - Mg>2, K>4 - EKG [...] ANGIO W/LV; Surgeon: Santosh Brady MD; Location: HORIZONTAL BORING MILL OPERATOR; Service: Cardiovascular; Laterality: N/A; CC KELLEN PLACEMENT, 1ST ARTERY N/A 12/24/2024 Procedure: KELLEN PLACEMENT, 1ST ARTERY; Surgeon: Santosh Brady MD; Location: SV HORIZONTAL BORING MILL OPERATOR; Service: Cardiovascular; Laterality: N/A; No family [...] from the original result were not included. [facility] [place] [facility] - Cardiac Catheterization Laboratory PATIENT DEMOGRAPHIC INFORMATION Name: Bridgett Jernigan : 1955 69 y.o. Sex: female Gender: female Procedure Date: 12/24/2024 Referring Physician: Darian Valente PCP: No primary care provider on file. Procedure(s): Procedures: * CORONARY ANGIO W/LV * KELLEN PLACEMENT, 1ST ARTERY Indication: Director Erp: Santosh Brady MD Postal Service Mail Processor(s): Vivek Kenny and None Anginal Classification: Typical [...] unstable angina, abnormal stress test transferred from [facility]. ACCESS Access: Right Radial Artery Sheath(s): 6Fr Hugoton Sheath Hemostasis Method: TR Band DIAGNOSTIC FINDINGS [...] mariana. Inflation time: 8 sec. Supplies used: [id number] CORONARY STENT SYSTEM SYNERGY XD MR 2.25MM 16MM DELIVERY SYS Intervention Angioplasty was performed following stent deployment. Maximum pressure: 14 mariana. Inflation time: 6 sec.Multiple inflations Supplies used: [id number] CATHETER BALLOON DIL NC EMERGE MR 2.5MM 12MM 2 LUM TAPER TIP Intervention Angioplasty was performed following stent deployment. Maximum pressure: 18 mariana. Inflation time: 6 sec. Supplies used: [id number] CATHETER BALLOON DIL NC EMERGE MR 2.5MM 12MM 2 LUM TAPER TIP Post-Intervention Lesion Assessment The intervention was successful. The guidewire crossed the lesion. Post-intervention NAS flow is 3. Lesion had 10 mm of its length treated. The patient was therapeutically anticoagulated with intravenous bivalirudin. A 6 Mauritian EBU 3.5 guide sat fairly well. The [...] The LAD flow was excellent Supplies used: [id number] CORONARY STENT SYSTEM SYNERGY XD MR 2.25MM [...] this patient that I request from a [facility] PA/DEALER ANALYST/fellow/staff member. Santosh Brady MD [facility] 12/24/2024 4:04 PM [...] have discussed the case with the Physician Postal Service Mail Processor/DEALER ANALYST and we have formulated the plan. I [...] Patient arrived on unit @ 1800 from lift slab operator via stretcher accompanied by 2 Cardiac plunger machine operator's on [facility]. A + O x4. Vital signs [...] Patient arrived on unit @ 1440 from [facility] via stretcher. A + O x4. Vital [...] disease, cervical fusions is a transfer from [facility] for unstable angina. Today, patient appears warm, [...] stress test so will send patient for [facility] today. Per patient's record from [facility] H&H 14.3/41.5, platelets 232, potassium 4.3, BUN [...] -EKG for chest pain -Follow-up with outpatient erecting crane operator within 1 week of discharge Risk, benefits [...] disease, cervical fusions is a transfer from [facility] for unstable angina. Over the past couple [...] drug use. Patient just moved from [place] to [facility]. [place] erecting cr[place] by her erecting crane operator in [place]. Review of systems: Review of Systems Constitutional: [...] EST PATIENT DISCHARGED 12/25/2024 Per State of [place] General Statutes Sec: 38a-226c: Notification of determination shall be mailed or otherwise communicated within 2 business days of receipt of all information necessary to complete the review. Please fax authorization determination to [phone] or call [phone]. * Case Coordination-Payor Communication - Romero Heck - 12/25/2024 12:36 PM EST 2nd request: Please follow-up with the Clinical Resource Management Department via fax ([phone]) or phone ([phone]) with status of authorization [facility]. Thank you. * Plan of Care - [...] Does the Patient Have a CT DNR [place] Bracelet or State DNR Form?: no Clinical [...] RRA site CDI no sign of hematoma. +[facility] checks WDL. Multiple attempts were made to update pt's by this RN, but pt's husbands phone kept going straight to voicemail. Angiomax stopped per orders at 1800. Plan for TR band to be removed at 2000. Report called and given to Neisha ALONZO. Pt transported on monitor with RN assist. Handoff completed at [facility]. * Case Coordination-Payor Communication - [...] disease, cervical fusions is a transfer from [facility] for unstable angina. Today, patient appears warm, [...] for LHC today. Per patient's record from [facility] H&H 14.3/41.5, platelets 232, potassium 4.3, BUN [...] 160/85 Abnormal 94 room air (none) 3L MA Labs/Diagnostics: Latest Reference Range & Units 12/24/24 [...] 6.5(H) <5.7 % 12/25/2024 5:38 PM EST [facility] Comment: A1c% ? Interpretation 5.7 - 6.0 ?Increase risk of diabetes 6.1 - 6.4 ?Higher risk of diabetes > or = 6.5 ?? Consistent with diabetes Diabetes Care, 33(Supp 1):S1-S61, 2010 Estimated Average Glucose 140 mg/dL 12/25/2024 5:38 PM EST [facility] Blood Blood specimen / Unknown 12/25/2024 8:00 AM EST 12/25/2024 8:12 AM EST Keenan Arreguin MD LAB BLOOD ORDERABLES Performing Organization Address City/[facility]/[place] [address], [place] [address] * (ABNORMAL) POCT Glucose, Fingerstick (12/25/2024 7:39 [...] 135 <150 mg/dL 12/25/2024 8:24 AM EST [facility] Cholesterol, HDL 43(L) >60 mg/dL 12/25/19 8:24 AM EST [facility] Estimated LDL 98 <130 mg/dL 12/25/2024 8:24 AM EST [facility] Comment: NCEP Guidelines: ?< 100 mg/dL ??Optimal 100 - 129 mg/dL ??Near Optimal/Above Optimal 130 - 159 mg/dL ??Borderline High 160 - 189 mg/dL ??High ??>/= 190 mg/dL ??Very High Cholesterol/HDL Ratio 3.9 0.0 - 5.0 Ratio 12/25/2024 8:24 AM EST [facility] Comment: Relative Risk ? Ratio - Male ? Ratio - Female ?0.5 ?3.4 ?3.3 ?1.0 ?5.0 ?4.4 ?2.0 ?9.6 ?7.1 ?3.0 ? 23.4 ? 11.0 Plasma/Serum 12/25/2024 5:33 AM EST 12/25/2024 6:08 AM EST Kristina PETERS LAB BLOOD ORDERABLES [facility] [address] [place] [address], * Protime-INR (12/25/2024 5:33 AM EST) Anticoagulant [...] EST Easton Aguirre PA-C LAB BLOOD ORDERABLES [address] * Partial Thromboplastin Time (PTT) (12/25/2024 5:33 AM EST) Anticoagulant IV HEPARIN, UNFRACTIONATED 12/24/2024 11:01 PM EST [facility] Partial Thromboplastin Time (PTT) 33 26 - 37 seconds 12/25/2024 6:19 AM EST [facility] Blood Plasma specimen / Unknown 12/25/2024 5:33 AM EST 12/25/2024 6:08 AM EST Easton Aguirre PA-C LAB BLOOD ORDERABLES [address] * (ABNORMAL) Comprehensive Metabolic Panel (12/25/2024 5:33 AM EST) Glucose 131(H) 74 - 106 mg/dL 12/25/2024 6:35 AM EST [facility] Comment:Fasting: <100 mg/dL, Non-Fasting: <200 mg/dL (ADA 2005) Blood Urea Nitrogen (BUN) 10 9 - 23 mg/dL 12/25/2024 6:35 AM EST [facility] Creatinine 0.9 0.6 - 1.0 mg/dL 12/25/2024 6:35 AM [facility] eGFR 69 >59 12/25/2024 6:35 AM [facility] Comment:CKD-EPI (2020) in mL /min/1.73 sq meters. Sodium 139 136 - 145 mmol/L 12/25/2024 6:35 AM [facility] Potassium 4.4 3.4 - 4.5 mmol/L 12/25/2024 6:35 AM [facility] Chloride 107 98 - 107 mmol/L 12/25/2024 6:35 AM [facility] CO2 24 20 - 31 mmol/L 12/25/2024 6:35 AM [facility] Calcium 10.1 8.7 - 10.5 mg/dL 12/25/2024 6:35 AM [facility] Alkaline Phosphatase 125(H) 32 - 122 U/L 12/25/2024 6:35 AM [facility] Aspartate Aminotrans (AST) 79(H) <34 U/L 12/25/2024 6:35 AM [facility] Alanine Aminotrans (ALT) 98(H) 7 - 35 U/L 12/25/2024 6:35 AM [facility] Bilirubin, Total 0.6 0.3 - 1.2 mg/dL 12/25/2024 6:35 AM [facility] Protein, Total 7.5 5.7 - 8.2 g/dL 12/25/2024 6:35 AM [facility] Albumin 4.6 3.4 - 4.8 g/dL 12/25/2024 6:35 AM [facility] BUN/Creatinine Ratio 11 10.0 - 25.0 Ratio 12/25/2024 6:35 AM [facility] Globulin 2.9 1.5 - 3.9 g/dL 12/25/2024 6:35 AM [facility] Albumin/Globulin Ratio 1.6 1.5 - 2.5 Ratio 12/25/2024 6:35 AM EST [facility] Anion Gap 8 5 - 15 12/25/2024 6:35 AM EST [facility] Blood (Plasma/Serum) 12/25/2024 5:33 AM EST 12/25/2024 6:08 AM EST Kristina PETERS LAB BLOOD ORDERABLES [facility] [address] [place] [address], [place] * (ABNORMAL) Complete Blood Count, with Differential (12/25/2024 5:33 AM EST) White Blood Cell Count 5.1 4.0 - 11.0 Thou/uL 12/25/2024 6:12 AM EST [facility] Platelet Count 245 150 - 450 Thou/uL 12/25/2024 6:12 AM EST [facility] Hemoglobin 14.2 11.7 - 15.7 g/dL 12/25/2024 6:12 AM EST [facility] Hematocrit 42.9 35.0 - 47.0 % 12/25/2024 6:12 AM EST [facility] Red Blood Cell Count 4.57 4.00 - 5.40 Mil/uL 12/25/2024 6:12 AM EST [facility] MCV 94 80 - 100 fL 12/25/2024 6:12 AM EST [facility] MCH 31.1(H) 27.0 - 31.0 pg 12/25/2024 6:12 AM EST [facility] MCHC 33.1 30.0 - 36.0 g/dL 12/25/2024 6:12 AM EST [facility] RDW 12.2 11.5 - 14.5 % 12/25/2024 6:12 AM EST [facility] MPV 9.4 7.5 - 12.5 fL 12/25/2024 6:12 AM EST [facility] Neutrophils Auto 53.0 % 12/25/19 6:12 AM EST [facility] Immature Granulocytes 0.2 % 12/25/2024 6:12 AM EST [facility] Lymphocytes Auto 29.1 % 12/25/19 6:12 AM EST [facility] Monocytes Auto 10.8 % 12/25/2024 6:12 AM EST [facility] Eosinophils Auto 4.7 % 12/25/19 6:12 AM EST [facility] Basophils Auto 2.2 % 12/25/2024 6:12 AM EST [facility] Abs Neutrophils Auto 2.69 2.00 - 7.50 Thou/uL 12/25/2024 6:12 AM EST [facility] Abs Immature Granulocytes 0.01 0.00 - 0.10 Thou/uL 12/25/2024 6:12 AM EST [facility] Abs Lymphocytes Auto 1.48(L) 1.50 - 4.50 Thou/uL 12/25/2024 6:12 AM EST [facility] Abs Monocytes Auto 0.55 0.20 - 1.50 Thou/uL 12/25/2024 6:12 AM EST [facility] Abs Eosinophils Auto 0.24 0.00 - 0.70 Thou/uL 12/25/2024 6:12 AM EST [facility] Abs Basophils Auto 0.11 0.00 - 0.20 Thou/uL 12/25/2024 6:12 AM EST [facility] Blood Blood specimen / Unknown 12/25/2024 5:33 AM EST 12/25/2024 6:08 AM EST Kristina PETERS LAB BLOOD ORDERABLES [facility] [address] [place] [address], * Troponin I, High Sensitivity (Once) (12/24/2024 10:01 PM EST) Troponin I, High Sensitivity 29 <34 ng/L 12/24/2024 10:51 PM EST [facility] Delta (HS Troponin I) Unable to calculate result 12/24/2024 10:51 PM EST [facility] Blood Serum specimen / Unknown 12/24/2024 10:01 PM EST 12/24/2024 10:11 PM EST Kristina PETERS LAB BLOOD ORDERABLES Performing Organization Address City/[facility]/ZIP Co de Phone Number [facility] [address] [place] [address], [place] * (ABNORMAL) POCT Glucose, Fingerstick (12/24/2024 [...] 5 <34 ng/L 12/24/2024 7:20 PM EST [facility] Delta (HS Troponin I) Unable to calculate result 12/24/2024 7:20 PM EST [facility] Blood Serum specimen / Unknown 12/24/2024 6:23 PM EST 12/24/2024 6:25 PM EST Kristina PETERS LAB BLOOD ORDERABLES Performing Organization Address City/[facility]/ZIP Co de Phone Number [facility] [address] [place] [address], [place] * (ABNORMAL) POCT Glucose, Fingerstick (12/24/2024 6:15 PM EST) POC Glucose 150(H) 65 - 99 mg/dL 12/24/2024 6:23 PM EST Comment:Notified RN Blood specimen / Unknown 12/24/2024 6:15 PM EST 12/24/2024 6:23 PM EST Juwan Willingham MD POINT OF CARE TEST O RDERABLES HOSPITAL LAB See Below * ECG 12 lead (12/24/2024 4:09 PM EST) Ventricular rate 68 BPM EKG [facility] Atrial rate 68 BPM EKG [facility] P-R interval 180 ms EKG [facility] QRS duration 90 ms EKG [facility] Q-T interval 420 ms EKG [facility] QTC calculation (Bazett) 447 ms EKG [facility] P axis 34 degrees EKG [facility] R axis 10 degrees EKG [facility] T axis 41 degrees EKG [facility] 12/24/2024 4:09 PM EST Narrative EKG [facility] - 12/24/2024 4:23 PM EST Normal sinus rhythm Cannot rule out Anterior infarct , age undetermined Abnormal ECG When compared with ECG of 24-Dec-2024 13:55, No significant change was found Confirmed by MD Hays Venu ([id number]) on 12/24/2024 4:23:39 PM Procedure Note Beau Hays MD - 12/24/2024 Normal sinus rhythm Cannot rule out Anterior infarct , age undetermined Abnormal ECG When compared with ECG of 24-Dec-2024 13:55, No significant change was found Confirmed by MD Hays Venu ([id number]) on 12/24/2024 4:23:39 PM Juwan Willingham MD ECG ORDERABLES Performing Organization Address City/[facility]/ZIP Co de Phone Number EKG [facility] * CC CORONARY ANGIO W/LV, CC KELLEN PLACEMENT, 1ST ARTERY (12/24/2024 3:56 PM EST) Anatomical Region Laterality Modality X-Ray Angiograph y Narrative 12/24/2024 4:05 PM EST Table formatting from the original result was not included. Images from the original result were not included. [facility] [place] [facility] - Cardiac Catheterization Laboratory PATIENT DEMOGRAPHIC INFORMATION Name: Bridgett Jernigan : 1955 69 y.o. Sex: female Gender: female Procedure Date: 12/24/2024 Referring Physician: Darian Valente PCP: No primary care provider on file. Procedure(s): Procedures: ??* CORONARY ANGIO W/LV ??* KELLEN PLACEMENT, 1ST ARTERY Indication: ? Director Erp: Santosh Brady MD Postal Service Mail Processor(s): Vivek Kenny and Anibal Anginal Classification: Typical [...] unstable angina, abnormal stress test transferred from [facility]. ACCESS Access: Right Radial Artery Sheath(s): 6Fr Hugoton Sheath Hemostasis Method: TR Band DIAGNOSTIC FINDINGS [...] mariana. Inflation time: 8 sec. Supplies used: [id number] CORONARY STENT SYSTEM SYNERGY XD MR 2.25MM 16MM DELIVERY SYS Intervention Angioplasty ??was performed following stent deployment. Maximum pressure: 14 mariana. Inflation time: 6 sec. Multiple inflations Supplies used: [id number] CATHETER BALLOON DIL NC EMERGE MR 2.5MM 12MM 2 LUM TAPER TIP Intervention Angioplasty ??was performed following stent deployment. Maximum pressure: 18 mariana. Inflation time: 6 sec. Supplies used: [id number] CATHETER BALLOON DIL NC EMERGE MR 2.5MM 12MM 2 LUM TAPER TIP Post-Intervention Lesion Assessment The intervention was successful. The guidewire crossed the lesion. Post-intervention NAS flow is 3. Lesion had 10 mm of its length treated. The patient was therapeutically anticoagulated with intravenous bivalirudin. ??A 6 Mauritian EBU 3.5 guide sat fairly well. ??The [...] ??The LAD flow was excellent Supplies used: [id number] CORONARY STENT SYSTEM SYNERGY XD MR 2.25MM [...] this patient that I request from a [facility] PA/DEALER ANALYST/fellow/staff member. Santosh Brady MD [facility] [place] 12/24/2024 ??4:04 PM Coronary Findings Diagnostic Dominance: [...] mariana. Inflation time: 8 sec. Supplies Used: [id number] CORONARY STENT SYSTEM SYNERGY XD MR 2.25MM 16MM DELIVERY SYS Intervention: Angioplasty was performed following stent deployment. Maximum pressure: 14 mariana. Inflation time: 6 sec. Multiple inflations Supplies Used: [id number] CATHETER BALLOON DIL NC EMERGE MR 2.5MM 12MM 2 LUM TAPER TIP Intervention: Angioplasty was performed following stent deployment. Maximum pressure: 18 mariana. Inflation time: 6 sec. Supplies Used: [id number] CATHETER BALLOON DIL NC EMERGE MR 2.5MM 12MM 2 LUM TAPER TIP Post-Intervention Lesion Assessment: The intervention was successful. The guidewire crossed the lesion. Post-intervention NAS flow is 3. Lesion had 10 mm of its length treated. The patient was therapeutically anticoagulated with intravenous bivalirudin. A 6 Mauritian EBU 3.5 guide sat fairly well. The [...] The LAD flow was excellent Supplies Used: [id number] CORONARY STENT SYSTEM SYNERGY XD MR 2.25MM 16MM DELIVERY SYS There is a 0% residual stenosis post intervention. Cardiac Protocol CAD Kristina PETERS CV CARDIAC CATH ORDERABLES * (ABNORMAL) POCT Activated Clotting Time (ACT) (12/24/2024 3:45 PM EST) Pathologist [facility] Activated Clotting Time, POC 407(A) 89 - 169 seconds Blood Blood specimen / Unknown Santosh Brady MD POINT OF CARE TEST O RDERABLES * (ABNORMAL) POCT Glucose, Fingerstick (12/24/2024 3:06 PM EST) Pathologist [facility] POC Glucose 135(H) 65 - 99 mg/dL [...] EST Juwan Willingham MD LAB BLOOD ORDERABLES [facility] [address] [place] [address], * Troponin I, High Sensitivity (12/24/2024 2:02 PM EST) Troponin I, High Sensitivity <3 <34 ng/L 12/24/2024 3:33 PM EST [facility] Delta (HS Troponin I) NO PREVIOUS RESULT 12/24/2024 3:33 PM EST [facility] Serum specimen / Unknown 12/24/2024 2:02 PM EST 12/24/2024 3:08 PM EST Juwan Willingham MD LAB BLOOD ORDERABLES [facility] [address] [place] [address], * (ABNORMAL) Complete Blood Count, WITHOUT Differential (routine) (12/24/2024 2:02 PM EST) Pathologist [facility] White Blood Cell Count 6.0 4.0 - 11.0 Thou/uL 12/24/2024 3:12 PM EST [facility] Platelet Count 270 150 - 450 Thou/uL 12/24/2024 3:12 PM EST [facility] Hemoglobin 14.6 11.7 - 15.7 g/dL 12/24/2024 3:12 PM EST [facility] Hematocrit 43.4 35.0 - 47.0 % 12/24/2024 3:12 PM EST [facility] Red Blood Cell Count 4.66 4.00 - 5.40 Mil/uL 12/24/2024 3:12 PM EST [facility] MCV 93 80 - 100 fL 12/24/2024 3:12 PM EST [facility] MCH 31.3(H) 27.0 - 31.0 pg 12/24/2024 3:12 PM EST [facility] MCHC 33.6 30.0 - 36.0 g/dL 12/24/2024 3:12 PM EST [facility] RDW 12.2 11.5 - 14.5 % 12/24/2024 3:12 PM EST [facility] MPV 9.8 7.5 - 12.5 fL 12/24/2024 3:12 PM EST [facility] Blood Blood specimen / Unknown 12/24/2024 2:02 PM EST 12/24/2024 3:08 PM EST Juwan Willingham MD LAB BLOOD ORDERABLES [facility] [address] [place] [address], * (ABNORMAL) Basic Metabolic Panel (Routine) (12/24/2024 2:02 PM EST) Glucose 130(H) 74 - 106 mg/dL 12/24/2024 3:33 PM EST [facility] Comment:Fasting: <100 mg/dL, Non-Fasting: <200 mg/dL (ADA 2004) Blood Urea Nitrogen (BUN) 13 9 - 23 mg/dL 12/24/2024 3:33 PM EST [facility] Creatinine 0.8 0.6 - 1.0 mg/dL 12/24/2024 3:33 PM EST [facility] eGFR 80 >59 12/24/2024 3:33 PM EST [facility] Comment:CKD-EPI (2020) in mL /min/1.73 sq meters. Sodium 139 136 - 145 mmol/L 12/24/2024 3:33 PM EST [facility] Potassium 3.8 3.4 - 4.5 mmol/L 12/24/2024 3:33 PM EST [facility] Chloride 103 98 - 107 mmol/L 12/24/2024 3:33 PM EST [facility] CO2 27 20 - 31 mmol/L 12/24/2024 3:33 PM EST [facility] Anion Gap 9 5 - 15 12/24/2024 3:33 PM EST [facility] Calcium 10.2 8.7 - 10.5 mg/dL 12/24/2024 3:33 PM EST [facility] BUN/Creatinine Ratio 16 10.0 - 25.0 Ratio 12/24/2024 3:33 PM EST [facility] Blood (Plasma/Serum) 12/24/2024 2:02 PM EST 12/24/2024 3:08 PM EST Juwan Willingham MD LAB BLOOD ORDERABLES Performing Organization Address [facility]/ZIP Co de Phone Number [facility] [address] [place] [address], * ECG 12 lead (12/24/2024 1:55 PM EST) Pathologist [facility] Ventricular rate 74 BPM EKG [facility] Atrial rate 74 BPM EKG [facility] P-R interval 174 ms EKG [facility] QRS duration 90 ms EKG [facility] Q-T interval 394 ms EKG [facility] QTC calculation (Bazett) 438 ms EKG [facility] P axis 36 degrees EKG [facility] R axis 3 degrees EKG [facility] T axis 71 degrees EKG [facility] 12/24/2024 1:55 PM EST Narrative EKG [facility] - 12/24/2024 2:14 PM EST Normal [...] Willingham MD ECG ORDERABLES Performing Organization Address City/[facility] Co de Phone Number [facility] documented in this encounter [...] = 50 units/mL, Indication for Anticoagulation: Acute MS New Bag 12/24/2024 2:25 PM EST 12 [...] Transfer Orders)1810 (JAN Unhold - Provider: User SwitchForce)2018 (Given - Provider: Marcy Khan RN) 901 [...] Transfer Orders)1810 (MAR Unhold - Provider: User [employer])183 (Given - Provider: Yuki Wu RN) 0749 [...] = 50 units/mL, Indication for Anticoagulation: Acute MS 1425 (New Bag - Provider: Yuki Wu [...] to swallow. See Hypoglycemia Management guideline. 1810 ([facility] Hold - Provider: Automatic Transfer Provider - Reason: Unreviewed Transfer Orders)1810 ([facility] Unhold - Provider: User Epic) dextrose 50 % solution 25 g(Linked Group 1) 25 g, Intravenous, Every 15 min PRN, low blood sugar, less than 50 mg/dL, Starting on Mon12/24/24 at 1456, For patient with IV access who is NPO or unable to swallow. See Hypoglycemia Management guideline. 1810 ([facility] Hold - Provider: Automatic Transfer Provider - Reason: Unreviewed Transfer Orders)1810 ([facility] Unhold - Provider: User Epic) docusate sodium (COLACE) capsule 100 mg 100 mg, Oral, Every 12 hours PRN, constipation, Starting on Mon12/24/24 at 1333 1451 ([facility] Hold - Provider: Automatic Transfer Provider - Reason: Unreviewed Transfer Orders)1810 ([facility] Unhold - Provider: User Epic) fentaNYL (SUBLIMAZE) [...] 1 mL sterile water for injection. 1810 ([facility] Hold - Provider: Automatic Transfer Provider - Reason: Unreviewed Transfer Orders)1810 ([facility] Unhold - Provider: User Epic) glucose (GLUTOSE [...] % = 15 grams of glucose. 1810 ([facility] Hold - Provider: Automatic Transfer Provider - Reason: Unreviewed Transfer Orders)1810 ([facility] Unhold - Provider: User Epic) glucose (GLUTOSE [...] % = 15 grams of glucose. 1810 ([facility] Hold - Provider: Automatic Transfer Provider - Reason: Unreviewed Transfer Orders)1810 ([facility] Unhold - Provider: User Epic) iohexol (OMNIPAQUE) [...] mg = albuterol (base) 2.5 mg. 145 ([facility] Hold - Provider: Automatic Transfer Provider - Reason: Unreviewed Transfer Orders)1810 ([facility] Unhold - Provider: User Epic) lidocaine (XYLOCAINE) [...] injection. documented in this encounter Care Teams Consulting It Architect Relationship Specialty Start Date End Date Ngoc Ordonez APRN [address] [place] [address] [phone] PCP - General Family Medicine 12/24/24 documented as of this encounter
--- OUTSIDE RECORDS SUMMARY | 2025-01-17 14:26 | XMS_ITS | Clinical Summary ---
Author Organization [facility] Address [address] [place] [address] Care Team Providers Care Cake Mixer Name Role Phone Ngoc Ordonez APRN Primary Care Provider + Beau Hays MD Unavailable [phone] Allergies Active Allergy Reactions Criticality Noted Date [...] Description 01/07/2025 10:40 AM EST Office Visit [facility] [address] [place] [address] [phone] Beau Hays MD Hospital discharge follow-up (Primary Dx); Chest pain, unspecified type Discharge Disposition: Home or Self Care 01/07/2025 Orders Only [facility] [address] [phone] Yaima De Paz APRN Chest pain, unspecified type (Primary Dx); NSTEMI (non-ST elevated myocardial infarction) (HCC) 01/07/2025 Travel 12/24/2024 3:00 PM EST - 12/24/2024 3:58 PM EST Surgery [facility] Heart & Vascular [place] [facility] - Cardiac Catheterization Laboratory [address] [place] [address] Santosh Brady MD CORONARY ANGIO W/LV 12/24/2024 1:26 PM EST - 12/25/2024 12:36 PM EST Hospital Encounter [facility] [id number] [place] [phone] Juwan Willingham MD Haider, Asim, MD NSTEMI (non-ST elevated myocardial infarction) (HCC) (Primary Dx) Discharge Disposition: Home or Self Care 12/24/2024 10:50 AM EST Ancillary Procedure [facility] [address] [place] [phone] Provider, File Room 12/23/2024 Orders Only [facility] [address] [place] [phone] Provider, File Room from Last 3 Months Social History Tobacco Use Types Packs/Day Years Used Date Smoking Tobacco: Never Assessed [facility] Utilities Answer Date Recorded In the past 12 months has [employer], gas, oil, or water [employer] threatened to shut off services in your [...] any time in the past 12 m [facility], were you homeless or [...] this topic Medical Devices Implanted Type Area Medical Support Assistant Device Identifier Shelf Expiration Date Model / Serial / Lot [id number] Coronary Stent System Synergy Xd Mr 2.25mm 16mm Delivery s - [id number] Implanted:Qty : 1 on 12/24/2024 by Santosh Brady MD at [facility] Stent N/A: Coronary [employer] [id number] 02/20/2026 [id number] / / [id number] Procedures Procedure Name Priority Date/Time Associated Diagnosis [...] is included. Ventricular rate 71 BPM EKG [facility] Atrial rate 71 BPM EKG [facility] P-R interval 186 ms EKG [facility] QRS duration 90 ms EKG [facility] Q-T interval 362 ms EKG [facility] QTC calculation (Bazett) 393 ms EKG [facility] P axis 43 degrees EKG [facility] R axis 10 degrees EKG [facility] T axis 46 degrees EKG [facility] 01/07/2025 10:3 0 AM EST Narrative EKG [facility] - 01/07/2025 2:06 PM EST Normal sinus rhythm Possible Anterior infarct (cited on or before 24-Dec-2024) Abnormal ECG When compared with ECG of 24-Dec-2024 16:09, QT has shortened Confirmed by MD Isbell Anja ([id number]) on 01/07/2025 2:06:51 PM Procedure Note Gem Isbell MD - 01/07/2025 Normal sinus rhythm Possible Anterior infarct (cited on or before 24-Dec-2024) Abnormal ECG When compared with ECG of 24-Dec-2024 16:09, QT has shortened Confirmed by MD Sukhi, Gem ([id number]) on 01/07/2025 2:06:51 PM Gem Isbell MD ECG ORDERABLES EKG [facility] * ECHOCARDIOGRAM COMPREHENSIVE WITH CONTRAST (12/25/2024 [...] 6.5(H) <5.7 % 12/25/2024 5:38 PM EST [facility] Comment: A1c% ? Interpretation 5.7 - 6.0 ?Increase risk of diabetes 6.1 - 6.4 ?Higher risk of diabetes > or = 6.5 ?? Consistent with diabetes Diabetes Care, 33(Supp 1):S1-S61, 2010 Estimated Average Glucose 140 mg/dL 12/25/2024 5:38 PM EST [facility] Blood Blood specimen / Unknown 12/25/2024 8:00 AM EST 12/25/2024 8:12 AM EST Keenan Arreguin MD LAB BLOOD ORDERABLES Performing Organization Address [facility]/[place] [address], [place] [address] * (ABNORMAL) POCT Glucose, Fingerstick (12/25/2024 7:39 AM EST) Only the most recent of4 resultswithin the time period is included. Pathologist [facility] POC Glucose 136(H) 65 - 99 mg/dL 12/25/2024 7:46 AM EST Comment:Notified RN Blood specimen / Unknown 12/25/2024 7:39 AM EST 12/25/2024 7:46 AM EST Keenan Arreguin MD POINT OF CARE TEST O RDERABLES [facility]OSPITAL LAB See Below * (ABNORMAL) Complete Blood Count, with Differential (12/25/2024 5:33 AM EST) White Blood Cell Count 5.1 4.0 - 11.0 Thou/uL 12/25/2024 6:12 AM EST [facility] Platelet Count 245 150 - 450 Thou/uL 12/25/2024 6:12 AM EST [facility] Hemoglobin 14.2 11.7 - 15.7 g/dL 12/25/2024 6:12 AM [facility] Hematocrit 42.9 35.0 - 47.0 % 12/25/2024 6:12 AM [facility] Red Blood Cell Count 4.57 4.00 - 5.40 Mil/uL 12/25/2024 6:12 AM [facility] MCV 94 80 - 100 fL 12/25/2024 6:12 AM [facility] MCH 31.1(H) 27.0 - 31.0 pg 12/25/2024 6:12 AM [facility] MCHC 33.1 30.0 - 36.0 g/dL 12/25/2024 6:12 AM [facility] RDW 12.2 11.5 - 14.5 % 12/25/2024 6:12 AM [facility] MPV 9.4 7.5 - 12.5 fL 12/25/2024 6:12 AM [facility] Neutrophils Auto 53.0 % 12/25/19 6:12 AM [facility] Immature Granulocytes 0.2 % 12/25/2024 6:12 AM [facility] Lymphocytes Auto 29.1 % 12/25/19 6:12 AM [facility] Monocytes Auto 10.8 % 12/25/2024 6:12 AM [facility] Eosinophils Auto 4.7 % 12/25/19 6:12 AM [facility] Basophils Auto 2.2 % 12/25/2024 6:12 AM [facility] Abs Neutrophils Auto 2.69 2.00 - 7.50 Thou/uL 12/25/2024 6:12 AM [facility] Abs Immature Granulocytes 0.01 0.00 - 0.10 Thou/uL 12/25/2024 6:12 AM [facility] Abs Lymphocytes Auto 1.48(L) 1.50 - 4.50 Thou/uL 12/25/2024 6:12 AM [facility] Abs Monocytes Auto 0.55 0.20 - 1.50 Thou/uL 12/25/2024 6:12 AM EST [facility] Abs Eosinophils Auto 0.24 0.00 - 0.70 Thou/uL 12/25/2024 6:12 AM EST [facility] Abs Basophils Auto 0.11 0.00 - 0.20 Thou/uL 12/25/2024 6:12 AM EST [facility] Blood Blood specimen / Unknown 12/25/2024 5:33 AM EST 12/25/2024 6:08 AM EST Kristina PETERS [place] [address], * Partial Thromboplastin Time (PTT) (12/25/2024 5:33 AM EST) Anticoagulant IV HEPARIN, UNFRACTIONATED 12/24/2024 11:01 PM EST [facility] Partial Thromboplastin Time (PTT) 33 26 - 37 seconds 12/25/2024 6:19 AM EST [facility] Blood Plasma specimen / Unknown 12/25/2024 5:33 AM EST 12/25/2024 6:08 AM EST Easton Aguirre PA-C [place] [address], * Protime-INR (12/25/2024 5:33 AM EST) Anticoagulant [...] PA-C LAB BLOOD ORDERABLES [facility] [address] [place] [address], * (ABNORMAL) LIPID PANEL (12/25/2024 5:33 AM [...] PETERS LAB BLOOD ORDERABLES [facility] [address] [place] [address], * (ABNORMAL) Comprehensive Metabolic Panel (12/25/2024 5:33 [...] - 4.8 g/dL 12/25/2024 6:35 AM EST [facility] BUN/Creatinine Ratio 11 10.0 - 25.0 Ratio 12/25/2024 6:35 AM EST [facility] Globulin 2.9 1.5 - 3.9 g/dL 12/25/2024 6:35 AM EST [facility] Albumin/Globulin Ratio 1.6 1.5 - 2.5 Ratio 12/25/2024 6:35 AM EST [facility] Anion Gap 8 5 - 15 12/25/2024 6:35 AM EST [facility] Blood (Plasma/Serum) 12/25/2024 5:33 AM EST 12/25/2024 6:08 AM EST Kristina PETERS LAB BLOOD ORDERABLES [facility] [address] [place] [address], * Troponin I, High Sensitivity (Once) (12/24/2024 [...] PM EST Kristina PETERS LAB BLOOD ORDERABLES [facility] [address] [place] [address], * CC CORONARY ANGIO W/LV, CC KELLEN PLACEMENT, 1ST ARTERY (12/24/2024 3:56 PM EST) Anatomical Region Laterality Modality X-Ray Angiograph y Narrative 12/24/2024 4:05 PM EST Table formatting from the original result was not included. Images from the original result were not included. [facility] Heart & Vascular [place] [facility] - Cardiac Catheterization Laboratory PATIENT DEMOGRAPHIC INFORMATION Name: Heidi Hazel : 1955 69 y.o. Sex: female Gender: female Procedure Date: 12/24/2024 Referring Physician: Darian Valente PCP: No primary care provider on file. Procedure(s): Procedures: ??* CORONARY ANGIO W/LV ??* KELLEN PLACEMENT, 1ST ARTERY Indication: ? Pairing Machine Operator: Santosh Brady MD Field Marketing Manager(s): Vivek Kenny and None Anginal Classification: Typical [...] unstable angina, abnormal stress test transferred from [facility]. ACCESS Access: Right Radial Artery Sheath(s): 6Fr [place] Sheath Hemostasis Method: TR Band DIAGNOSTIC FINDINGS [...] mariana. Inflation time: 8 sec. Supplies used: [id number] CORONARY STENT SYSTEM SYNERGY XD MR 2.25MM 16MM DELIVERY SYS Intervention Angioplasty ??was performed following stent deployment. Maximum pressure: 14 mariana. Inflation time: 6 sec. Multiple inflations Supplies used: [id number] CATHETER BALLOON DIL NC EMERGE MR 2.5MM 12MM 2 LUM TAPER TIP Intervention Angioplasty ??was performed following stent deployment. Maximum pressure: 18 mariana. Inflation time: 6 sec. Supplies used: [id number] CATHETER BALLOON DIL NC EMERGE MR 2.5MM 12MM 2 LUM TAPER TIP Post-Intervention Lesion Assessment The intervention was successful. The guidewire crossed the lesion. Post-intervention NAS flow is 3. Lesion had 10 mm of its length treated. The patient was therapeutically anticoagulated with intravenous bivalirudin. ??A 6 Bulgarian EBU 3.5 guide sat fairly well. ??The [...] ??The LAD flow was excellent Supplies used: [id number] CORONARY STENT SYSTEM SYNERGY XD MR 2.25MM [...] this patient that I request from a [facility] PA/INSPECTOR GENERAL/fellow/staff member. Santosh Brady MD [facility] Heart [facility] Vascular [place] 12/24/2024 ??4:04 PM Coronary Findings Diagnostic Dominance: [...] mariana. Inflation time: 8 sec. Supplies Used: [id number] CORONARY STENT SYSTEM SYNERGY XD MR 2.25MM 16MM DELIVERY SYS Intervention: Angioplasty was performed following stent deployment. Maximum pressure: 14 mariana. Inflation time: 6 sec. Multiple inflations Supplies Used: [id number] CATHETER BALLOON DIL NC EMERGE MR 2.5MM 12MM 2 LUM TAPER TIP Intervention: Angioplasty was performed following stent deployment. Maximum pressure: 18 mariana. Inflation time: 6 sec. Supplies Used: [id number] CATHETER BALLOON DIL NC EMERGE MR 2.5MM 12MM 2 LUM TAPER TIP Post-Intervention Lesion Assessment: The intervention was successful. The guidewire crossed the lesion. Post-intervention NAS flow is 3. Lesion had 10 mm of its length treated. The patient was therapeutically anticoagulated with intravenous bivalirudin. A 6 Bulgarian EBU 3.5 guide sat fairly well. The [...] The LAD flow was excellent Supplies Used: [id number] CORONARY STENT SYSTEM SYNERGY XD MR 2.25MM 16MM DELIVERY SYS There is a 0% residual stenosis post intervention. Cardiac Protocol CAD Kristina PETERS CV CARDIAC CATH ORDERABLES * (ABNORMAL) POCT Activated Clotting Time (ACT) (12/24/2024 3:45 PM EST) [facility] Activated Clotting Time, POC 407(A) 89 - 169 seconds Blood Blood specimen / Unknown Santosh Brady MD POINT OF CARE TEST O RDERABLES * Heparin Assay (Anti Xa) (12/24/2024 2:03 PM EST) [facility] Anti Xa 0.39 IU/mL 12/24/2024 3:42 PM [...] MD LAB BLOOD ORDERABLES [facility] [address] [place] [address], * (ABNORMAL) Complete Blood Count, WITHOUT Differential [...] MD LAB BLOOD ORDERABLES [facility] [address] [place] [address], * (ABNORMAL) Basic Metabolic Panel (Routine) (12/24/2024 [...] MD LAB BLOOD ORDERABLES [facility] [address] [place] [address], * CR Chest Archive for Reference only (12/24/2024 10:48 AM EST) Brandi BIRD - 12/24/2024 10:48 AM EST This study has been auto finalized and does not contain a result. File Room Provider IMG DIGITIZE FILMS MARGE [phone] from Last 3 Months Advance Directives * Full Code (Latest Code Status on File) Date Activated Date Inactivated Comments 12/24/2024 1:32 PM Care Teams Cake Mixer Relationship Specialty Start Date End Date Ngoc Ordonez APRN [address] [place] [phone] PCP - General Family Medicine 12/24/24 Beau Hays MD [facility] [place] [address] Primary Ballet Professor Cardiovascular Disease 01/07/25
--- OUTSIDE RECORDS SUMMARY | 2025-01-17 14:26 | XMS_ITS | Encounter Summary ---
Author Organization [facility] Address [address] [place] [address] Care Team Providers Care Technical Marketing Consultant Name Role Phone Ngoc Ordonez APRN Primary Care Provider + Encounter Details Date Type Department Care Team (Late st Contact Info) Description 12/23/2024 Orders Only [facility] Radiology [address] [place] [address] Provider, File Room Social History Tobacco Use Types Packs/Day Years Used Date Smoking Tobacco: Never Assessed [facility] Utilities Answer Date Recorded In the past 12 months has th e electric, gas, oil, or water [employer] threatened to shut off services in your [...] any time in the past 12 m [facility], were you homeless or living in a [...] File Room Provider IMG DIGITIZE FILMS MARGE [phone] documented in this encounter Visit Diagnoses Not on filedocumented in this encounter Care Teams Technical Marketing Consultant Relationship Specialty Start Date End Date Ngoc Ordonez, MANAGER SHELL [address] [place] [phone] PCP - General Family Medicine 12/24/24 documented as of this encounter
== END 2025-01-17 13:32 | disposition home or self-care (01) ==
LOC: HO.HCS 12:54
PROVIDERS: Visit Provider Internal Medicine
DX: I25.10 Atherosclerotic heart disease of native coronary artery without angina pectoris (principal); Z95.5 Presence of coronary angioplasty implant and graft; E11.59 Type 2 diabetes mellitus with other circulatory complications; I15.2 Hypertension secondary to endocrine disorders; E66.811 Obesity, class 1; Z68.34 Body mass index [BMI] 34.0-34.9, adult
CPT/HCPCS: 99214

== ENCOUNTER 2025-02-12 15:04 | Outpatient (REF) | payer BC, SELFPAY ==
[2025-02-12 16:30] LABS: Prothrombin Time 12.2 SEC (10.9-12.4)
[2025-02-12 17:07] LABS: C Reactive Protein 0.23 mg/dL (< or = 0.50)
[2025-02-12 17:23] LABS: Ferritin 37 ng/mL (10-250)
--- OUTSIDE RECORDS SUMMARY | 2025-02-12 17:37 | XMS_ITS | Clinical Summary ---
Author Organization [facility] Address [address] [place] [address] Care Team Providers Care Estimator Lumber Name Role Phone Ngoc Ordonez APRN Primary Care Provider + Beau Hays MD Unavailable [phone] Allergies Active Allergy Reactions Criticality Noted Date [...] Description 01/07/2025 10:40 AM EST Office Visit [facility] [address] [phone] Beau Hays MD Hospital discharge follow-up (Primary Dx); Chest pain, unspecified type Discharge Disposition: Home or Self Care 01/07/2025 Orders Only [facility] [address] [phone] Yaima De Paz APRN Chest pain, unspecified type (Primary Dx); NSTEMI (non-ST elevated myocardial infarction) (HCC) 01/07/2025 Travel 12/24/2024 3:00 PM EST - 12/24/2024 3:58 PM EST Surgery [facility] [place] [facility] - Cardiac Catheterization Laboratory [address] [place] [phone] Santosh Brady MD CORONARY ANGIO W/LV 12/24/2024 1:26 PM EST - 12/25/2024 12:36 PM EST Hospital Encounter [facility] [address] [phone] Juwan Willingham MD Haider, Asim, MD NSTEMI (non-ST elevated myocardial infarction) (HCC) (Primary Dx) Discharge Disposition: Home or Self Care 12/24/2024 10:50 AM EST Ancillary Procedure [facility] [address] [place] [address] Provider, File Room 12/23/2024 Orders Only [facility] [address] [place] [address] Provider, File Room from Last 3 Months Social History Tobacco Use Types Packs/Day Years Used Date Smoking Tobacco: Never Assessed [facility] Utilities Answer Date Recorded In the past 12 months has [place], gas, oil, or water [employer] threatened to shut off services in your [...] in the past [address] [facility], were you homeless or living in a [...] this topic Medical Devices Implanted Type Area Cutting Torch Operator Device Identifier Shelf Expiration Date Model / Serial / Lot [id number] Coronary Stent System Synergy Xd Mr 2.25mm 16mm Delivery Sys - [id number] Implanted:Qty : 1 on 12/24/2024 by Santosh Brady MD at [facility] Stent N/A: Coronary Accolo [id number] 02/20/2026 [id number] / / [id number] Procedures Procedure Name Priority Date/Time Associated Diagnosis [...] is included. Ventricular rate 71 BPM EKG [facility] Atrial rate 71 BPM EKG [facility] P-R interval 186 ms EKG [facility] QRS duration 90 ms EKG [facility] Q-T interval 362 ms EKG [facility] QTC calculation (Bazett) 393 ms EKG [facility] P axis 43 degrees EKG [facility] R axis 10 degrees EKG [facility] T axis 46 degrees EKG [facility] 01/07/2025 10:3 0 AM EST Narrative EKG [facility] - 01/07/2025 2:06 PM EST Normal sinus rhythm Possible Anterior infarct (cited on or before 24-Dec-2024) Abnormal ECG When compared with ECG of 24-Dec-2024 16:09, QT has shortened Confirmed by MD Isbell Anja ([id number]) on 01/07/2025 2:06:51 PM Procedure Note Gem Isbell MD - 01/07/2025 Normal sinus rhythm Possible Anterior infarct (cited on or before 24-Dec-2024) Abnormal ECG When compared with ECG of 24-Dec-2024 16:09, QT has shortened Confirmed by MD Isbell Anja ([id number]) on 01/07/2025 2:06:51 PM Gem Isbell MD ECG ORDERABLES EKG [facility] * ECHOCARDIOGRAM COMPREHENSIVE WITH CONTRAST [...] MD LAB BLOOD ORDERABLES Performing Organization Address City/[facility]/ZIP Co de Phone Number [address] [address], [address] [address] * (ABNORMAL) POCT Glucose, Fingerstick (12/25/2024 7:39 AM EST) Only the most recent of4 resultswithin the time period is included. Pathologist [facility] POC Glucose 136(H) 65 - 99 mg/dL 12/25/2024 7:46 AM EST Comment:Notified RN Blood specimen / Unknown 12/25/2024 7:39 AM EST 12/25/2024 7:46 AM EST Keenan Arreguin MD POINT OF CARE TEST O RDERABLES HOSPITAL LAB See Below * (ABNORMAL) Complete Blood Count, with Differential (12/25/2024 5:33 AM EST) Pathologist [facility] White Blood Cell Count 5.1 4.0 - 11.0 Thou/uL 12/25/2024 6:12 AM EST [facility] Platelet Count 245 150 - 450 Thou/uL 12/25/2024 6:12 AM EST [facility] Hemoglobin 14.2 11.7 - 15.7 g/dL 12/25/2024 6:12 AM EST [facility] Hematocrit 42.9 35.0 - 47.0 % 12/25/2024 6:12 AM EST [facility] Red Blood Cell Count 4.57 4.00 - 5.40 Mil/uL 12/25/2024 6:12 AM EST [facility] MCV 94 80 - 100 fL 12/25/2024 6:12 AM EST [facility] MCH 31.1(H) 27.0 - 31.0 pg 12/25/2024 6:12 AM [facility] MCHC 33.1 30.0 - 36.0 g/dL 12/25/2024 6:12 AM [facility] RDW 12.2 11.5 - 14.5 % 12/25/2024 6:12 AM [facility] MPV 9.4 7.5 - 12.5 fL 12/25/2024 6:12 AM [facility] Neutrophils Auto 53.0 % 12/25/19 6:12 AM [facility] Immature Granulocytes 0.2 % 12/25/2024 6:12 AM [facility] Lymphocytes Auto 29.1 % 12/25/19 6:12 AM [facility] Monocytes Auto 10.8 % 12/25/2024 6:12 AM [facility] Eosinophils Auto 4.7 % 12/25/19 6:12 AM [facility] Basophils Auto 2.2 % 12/25/2024 6:12 AM [facility] Abs Neutrophils Auto 2.69 2.00 - 7.50 Thou/uL 12/25/2024 6:12 AM [facility] Abs Immature Granulocytes 0.01 0.00 - 0.10 Thou/uL 12/25/2024 6:12 AM [facility] Abs Lymphocytes Auto 1.48(L) 1.50 - 4.50 Thou/uL 12/25/2024 6:12 AM [facility] Abs Monocytes Auto 0.55 0.20 - 1.50 Thou/uL 12/25/2024 6:12 AM [facility] Abs Eosinophils Auto 0.24 0.00 - 0.70 Thou/uL 12/25/2024 6:12 AM [facility] Abs Basophils Auto 0.11 0.00 - 0.20 Thou/uL 12/25/2024 6:12 AM [facility] Blood Blood specimen / Unknown 12/25/2024 5:33 AM EST 12/25/2024 6:08 AM EST Kristina PETERS LAB BLOOD ORDERABLES [facility] [address] [place] [address], * Partial Thromboplastin Time (PTT) (12/25/2024 5:33 AM EST) Anticoagulant IV HEPARIN, UNFRACTIONATED 12/24/2024 11:01 PM EST [facility] Partial Thromboplastin Time (PTT) 33 26 - 37 seconds 12/25/2024 6:19 AM EST [facility] Blood Plasma specimen / Unknown 12/25/2024 5:33 AM EST 12/25/2024 6:08 AM EST Easton Aguirre PA-C LAB BLOOD ORDERABLES Performing Organization Address [facility]/[place] [address], * Protime-INR (12/25/2024 5:33 AM EST) Anticoagulant IV HEPARIN, UNFRACTIONATED 12/24/2024 11:01 PM EST [facility] Prothrombin Time (PT) 12.1 10.0 - 13.5 seconds 12/25/2024 6:19 AM EST [facility] INR 1.1 12/25/2024 6:19 AM EST [facility] Comment:INR Therapeutic Rang es: Standard dose anticoagulant 2.0 to 3.0, High dose anticoagulant 2.5-3.5. Blood Plasma specimen / Unknown 12/25/2024 5:33 AM EST 12/25/2024 6:08 AM EST Easton Aguirre PA-C LAB BLOOD ORDERABLES [address] [place] [address], [place] * (ABNORMAL) LIPID PANEL (12/25/2024 5:33 [...] [facility] [address] [place] [address], [place] * (ABNORMAL) Comprehensive Metabolic Panel (12/25/2024 5:33 AM EST) Glucose 131(H) 74 - 106 mg/dL 12/25/2024 6:35 AM EST [facility] Comment:Fasting: <100 mg/dL, Non-Fasting: <200 mg/dL (ADA 2005) Blood Urea Nitrogen (BUN) 10 9 - 23 mg/dL 12/25/2024 6:35 AM EST [facility] Creatinine 0.9 0.6 - 1.0 mg/dL 12/25/2024 6:35 AM [facility] eGFR 69 >59 12/25/2024 6:35 AM [facility] Comment:CKD-EPI (2020) in mL /min/1.73 sq meters. Sodium 139 136 - 145 mmol/L 12/25/2024 6:35 AM [facility] Potassium 4.4 3.4 - 4.5 mmol/L 12/25/2024 6:35 AM [facility] Chloride 107 98 - 107 mmol/L 12/25/2024 6:35 AM [facility] CO2 24 20 - 31 mmol/L 12/25/2024 6:35 AM [facility] Calcium 10.1 8.7 - 10.5 mg/dL 12/25/2024 6:35 AM [facility] Alkaline Phosphatase 125(H) 32 - 122 U/L 12/25/2024 6:35 AM [facility] Aspartate Aminotrans (AST) 79(H) <34 U/L 12/25/2024 6:35 AM [facility] Alanine Aminotrans (ALT) 98(H) 7 - 35 U/L 12/25/2024 6:35 AM [facility] Bilirubin, Total 0.6 0.3 - 1.2 [...] AM EST Kristina PETERS [place] [address], * Troponin I, High Sensitivity (Once) (12/24/2024 [...] ORDERABLES [facility] [address] [place] [address], [place] * CC CORONARY ANGIO W/LV, CC KELLEN PLACEMENT, 1ST ARTERY (12/24/2024 3:56 PM EST) Anatomical Region Laterality Modality X-Ray Angiograph y Narrative 12/24/2024 4:05 PM EST Table formatting from the original result was not included. Images from the original result were not included. [facility] Heart [facility] [place] [facility] - Cardiac Catheterization Laboratory PATIENT DEMOGRAPHIC INFORMATION Name: Heidi Hazel : 1955 69 y.o. Sex: female Gender: female Procedure Date: 12/24/2024 Referring Physician: Darian Valente PCP: No primary care provider on file. Procedure(s): Procedures: ??* CORONARY ANGIO W/LV ??* KELLEN PLACEMENT, 1ST ARTERY Indication: ? Bailiff: Santosh Brady MD Kids Club Attendant(s): Vivek Kenny and Anibal Anginal Classification: Typical [...] unstable angina, abnormal stress test transferred from [facility]. ACCESS Access: Right Radial Artery Sheath(s): 6Fr [place] Sheath Hemostasis Method: TR Band DIAGNOSTIC FINDINGS [...] mariana. Inflation time: 8 sec. Supplies used: [id number] CORONARY STENT SYSTEM SYNERGY XD MR 2.25MM 16MM DELIVERY SYS Intervention Angioplasty ??was performed following stent deployment. Maximum pressure: 14 mariana. Inflation time: 6 sec. Multiple inflations Supplies used: [id number] CATHETER BALLOON DIL NC EMERGE MR 2.5MM 12MM 2 LUM TAPER TIP Intervention Angioplasty ??was performed following stent deployment. Maximum pressure: 18 mariana. Inflation time: 6 sec. Supplies used: [id number] CATHETER BALLOON DIL NC EMERGE MR 2.5MM 12MM 2 LUM TAPER TIP Post-Intervention Lesion Assessment The intervention was successful. The guidewire crossed the lesion. Post-intervention NAS flow is 3. Lesion had 10 mm of its length treated. The patient was therapeutically anticoagulated with intravenous bivalirudin. ??A 6 [place] EBU 3.5 guide sat fairly well. ??The [...] ??The LAD flow was excellent Supplies used: [id number] CORONARY STENT SYSTEM SYNERGY XD MR 2.25MM [...] this patient that I request from a [facility] PA/PHYSICAL THERAPIST CLINIC DIRECTOR/fellow/staff member. Santosh Brady MD [facility] [place] 12/24/2024 ??4:04 PM Coronary Findings Diagnostic Dominance: [...] mariana. Inflation time: 8 sec. Supplies Used: [id number] CORONARY STENT SYSTEM SYNERGY XD MR 2.25MM 16MM DELIVERY SYS Intervention: Angioplasty was performed following stent deployment. Maximum pressure: 14 mariana. Inflation time: 6 sec. Multiple inflations Supplies Used: [id number] CATHETER BALLOON DIL NC EMERGE MR 2.5MM 12MM 2 LUM TAPER TIP Intervention: Angioplasty was performed following stent deployment. Maximum pressure: 18 mariana. Inflation time: 6 sec. Supplies Used: [id number] CATHETER BALLOON DIL NC EMERGE MR 2.5MM 12MM 2 LUM TAPER TIP Post-Intervention Lesion Assessment: The intervention was successful. The guidewire crossed the lesion. Post-intervention NAS flow is 3. Lesion had 10 mm of its length treated. The patient was therapeutically anticoagulated with intravenous bivalirudin. A 6 Naur[place] EBU 3.5 guide sat fairly well. The [...] The LAD flow was excellent Supplies Used: [id number] CORONARY STENT SYSTEM SYNERGY XD MR 2.25MM 16MM DELIVERY SYS There is a 0% residual stenosis post intervention. Cardiac Protocol CAD Kristina PETERS CV CARDIAC CATH ORDERABLES * (ABNORMAL) POCT Activated Clotting Time (ACT) (12/24/2024 3:45 PM EST) [facility] Activated Clotting Time, POC 407(A) 89 - 169 seconds Blood Blood specimen / Unknown Santosh Brady MD POINT OF CARE TEST O RDERABLES * Heparin Assay (Anti Xa) (12/24/2024 2:03 PM EST) [facility] Anti Xa 0.39 IU/mL 12/24/2024 3:42 PM EST [facility] Comment: (NOTE) Heparin Thromboembolic/Standard/Full Dose Protocol: Therapeutic [...] HEPARIN, UNFRACTIONATED 12/24/2024 2:02 PM EST [facility] Blood Plasma specimen / Unknown 12/24/2024 2:03 PM EST 12/24/2024 3:09 PM EST Juwan Willingham MD LAB BLOOD ORDERABLES [facility] [address] [place] [address], * (ABNORMAL) Complete Blood Count, WITHOUT Differential [...] 11.5 - 14.5 % 12/24/2024 3:12 PM [facility] MPV 9.8 7.5 - 12.5 fL 12/24/2024 3:12 PM EST [facility] Blood Blood specimen / Unknown 12/24/2024 2:02 PM EST 12/24/2024 3:08 PM EST Juwan Willingham MD LAB BLOOD ORDERABLES [facility] [address] [place] [address], * (ABNORMAL) Basic Metabolic Panel (Routine) (12/24/2024 2:02 PM EST) Glucose 130(H) 74 - 106 mg/dL 12/24/2024 3:33 PM [facility] Comment:Fasting: <100 mg/dL, Non-Fasting: <200 mg/dL [...] [facility] [address] [place] [address], * CR Chest Archive for Reference only (12/24/2024 10:48 AM EST) Brandi BIRD - 12/24/2024 10:48 AM EST This study has been auto finalized and does not contain a result. File Room Provider IMG DIGITIZE FILMS MARGE [phone] from Last 3 Months Advance Directives * Full Code (Latest Code Status on File) Date Activated Date Inactivated Comments 12/24/2024 1:32 PM Care Teams Estimator Lumber Relationship Specialty Start Date End Date Ngoc Ordonez APRN [address] [place] [phone] PCP - General Family Medicine 12/24/24 Beau Hays MD [address] [place] [address] Primary Carpet Tile Layer Cardiovascular Disease 01/07/25
[2025-02-13 05:30] LABS: Hepatitis B Core Antibody Nonreactive (Nonreactive); Hepatitis B Surface Antigen Negative (Negative); ~Hepatitis C Antibody Nonreactive (Nonreactive)
[2025-02-13 06:21] LABS: ~Hepatitis B Surface Antibody NONREACTIVE (Nonreactive)
[2025-02-13 13:08] LABS: Alpha Fetoprotein 5.7 ng/mL
[2025-02-13 22:39] LABS: Transglutaminase IgA <1.0 U/mL
[2025-02-14 15:54] LABS: Mitochondrial Antibodies NEGATIVE (NEGATIVE)
[2025-02-15 21:54] LABS: Smooth Muscle Antibody <20 U (<20)
[2025-02-17 16:38] LABS: FIB-ALT 69 U/L (6-29); FIB-Alpha-2-Macroglobulin 336 mg/dL (106-279); FIB-Apolipoprotein A1 108 mg/dL (101-198); FIB-GGT 46 U/L (3-65); FIB-Haptoglobin 206 mg/dL (43-212); FIB-Total Bilirubin 0.3 mg/dL (0.2-1.2); Liver Fibrosis Score 0.49; Liver Fibrosis Stage F2; Nec Inflam Act Grade A1-A2; Nec Inflam Act Score 0.49; Reference ID 5434095
[2025-02-18 08:02] LABS: Hepatitis A Antibody IgM 0.15 Index (0-0.79); ~Hepatitis A Antibody IgM Nonreactive (Nonreactive)
== END 2025-02-12 15:05 | disposition home or self-care (01) ==
LOC: HO.LAB 15:04
PROVIDERS: PCP Nurse Practitioner Family; Visit Provider Nurse Practitioner Family
DX: Z12.11 Encounter for screening for malignant neoplasm of colon (principal); I25.10 Atherosclerotic heart disease of native coronary artery without angina pectoris; Z95.5 Presence of coronary angioplasty implant and graft; R79.89 Other specified abnormal findings of blood chemistry; K76.0 Fatty (change of) liver, not elsewhere classified; R74.8 Abnormal levels of other serum enzymes; R10.9 Unspecified abdominal pain; K58.9 Irritable bowel syndrome, unspecified
CPT/HCPCS: 36415; 81596; 82105; 82728; 85610; 86015; 86140; 86364; 86381; 86704; 86706; 86709; 86803; 87340

== ENCOUNTER 2025-02-12 15:04 | Outpatient (AMB) | payer BC, SELFPAY ==
--- NOTE | 2025-02-12 15:09 | MHC.OFFVIS ---
Vital Signs 02/12/25 15:24 Height 5 ft Weight 171 lb 1.259 oz BMI 33.4 BP 124/60 Blood Pressure Location Rt brachial Position Sitting Pulse 72 Pulse Source Pulse Oximeter Pulse Oximetry (%) 99 Oxygen Delivery Method Room Air Intake Visit Reasons: Colonoscopy Screening Intake Note: NEW PATIENT for colo recall. Abnormal hx w/ polypectomy. Unspecified last colo date. Chief Complaint; Pt reports that their current medication regimen is controlling their sx well. No complaints at this time. Hx of reflux x many years. Hx of colo w/ polypectomy x~2 years ago in [facility]. Sr. Social Media & Mobile Manager Required: No Accompanied by: Spouse Allergies lisinopril Allergy (Severe, Verified 02/12/25 15:25) Anaphylaxis Penicillins Allergy (Severe, Verified 02/12/25 15:25) Unknown Sulfa (Sulfonamide Antibiotics) Allergy (Severe, Verified 02/12/25 15:25) Unknown adhesive Allergy (Intermediate, Verified 02/12/25 15:25) red patches gentamicin Allergy (Unknown, Verified 02/12/25 15:25) Itching HPI HPI Colonoscopy Screening: Details: 69 year old? female with past medical history of atherosclerotic cardiovascular disease, fatty liver, constipation, status post coronary drug eluting stent placement 12/23/2024, diabetes, iron deficiency anemia, hypertension is here today for pre colonoscopy screening.? Patient was sent to us by her PCP.? Patient reports she had colonoscopy in the past in [place]. She reports 3 years ago or so and was told to repeated in 3 years due to polyps.? Patient denies any gastrointestinal symptoms in the past or at present.? However she does report of experiencing severe abdominal pain and was seen in the ED for severe constipation and impaction. Currently patient is taking MiraLax. She takes it if no BM in 1 or 2 days. Denies any personal or family history of gastrointestinal disease or CRC.? Denies history of difficulty with sedation or anesthesia in the past.? Negative for history of sleep apnea.? Patient had cardiac stress test in the beginning of December that showed possible ischemia and chest pain during exercise. Patient was supposed to get nuclear stress test. On the she developed chest pain shortness of breath. In ED hypotensive. After discussing with char conveyor tender music instructor patient was sent to tertiary center for Diagnostic and urgent cardiac catheterization. 95% stenosis in 1st diagonal branch. Currently patient is doing well. Denies any cardiac or respiratory symptoms. Has follow-up appointment with Dr. Sanders in March. Message sent to residential care officer to of clearance to the visit. However due to recent stent not even 2 months ago patient should probably wait minimum 6-8 months after stenting as no interruption in anti-platelet therapy. We will have patient return in 3-4 months. History of fatty liver, increase in liver enzymes. Patient reports that she was diagnosed with fatty liver in the past. Patient reports it was several years ago. Plan on doing workup and ultrasound. ? No history of infectious? diseases like hepatitis A, B, C, HIV or tuberculosis.? [facility] Medical History (Updated 02/12/25 @ 20:47 by Lyubov Valentin [facility]) Non-alcoholic fatty liver disease Exhaustion Memory change Anxiety Hypertension Diabetes Abnormal colonoscopy Surgical History (Updated 02/12/25 @ 15:26 by Ag Grace CCM) S/P cardiac cath History of colonoscopy (~2014) H/O eye surgery H/O cervical spine surgery History of back surgery H/O elbow surgery H/O wrist surgery H/O section Family History Sister Mental health disorder Substance abuse Cardiovascular disease Hypertension Thyroid disease Advancing dementia Brother Cancer Cardiovascular disease Hypertension Paternal Grandfather Cancer Father Cardiovascular disease Hypertension Mother Hypertension Daughter Thyroid disease Social History Household Members: Spouse Both parents involved: No Caregiver staying overnight: No Housing: House Are you a primary health care sanitary technician to a significant other at home: No Do you presently have visiting nurse or other home services: No 75 years or older and lives alone: No Alcohol intake: former Patient Tobacco Use Status: Never used Tobacco e-Cigarette/Vaping Use: Never Used Second Hand Smoke Exposure: No service: No Current occupational status: retired Cognitive needs: No Hearing needs: No Vision needs: No Review of Systems Const Denies weight gain and Denies weight loss ENT Reports no additional complaints, Denies dysphagia and Denies odynophagia Card Reports no additional complaints Resp Reports no additional complaints GI Denies abdominal pain, Denies belching, Denies melena, Reports bloating, Denies change in bowel habits, Reports constipation, Denies dysphagia, Denies excessive flatus, Denies dyspepsia, Denies heartburn, Denies diarrhea, Denies loose stools, Denies nausea, Denies odynophagia and Denies vomiting Reports no additional complaints Musc Reports no additional complaints Neuro Reports no additional complaints Psych Reports no additional complaints Endo Reports no additional complaints Physical Exam Vital Signs: Last Vital Signs Pulse 72 02/12/25 15:24 BP 124/60 02/12/25 15:24 Pulse Ox 99 02/12/25 15:24 Oxygen Delivery Method Room Air 02/12/25 15:24 BMI result Body Mass Index 33.4 Const General: healthy appearing, no acute distress and well developed Nutritional Appearance: well nourished and obese Orientation/consciousness: patient oriented x3 Resp Effort & Inspection: normal respiratory effort, able to speak in complete sentences, no tracheal deviation and symmetric chest movement Auscultation: clear to auscultation bilaterally Cardio Rate: regular rate GI Inspection: Yes normal to inspection, No distended and Yes obesity Palpation (GI): Soft to palpation, not firm, nontender and No hepatosplenomegaly present Auscultation: normal bowel sounds General: Yes no CVA tenderness Back/Spine/Pelvis Back: no CVA tenderness Skin General skin exam: elasticity normal, turgor normal and dry skin Neuro General: patient oriented x3 Psych Appearance: grossly normal Mental Status: mental status grossly normal Assessment & Plan Assessment & Plan (1) Screen for colon cancer: Code(s): Z12.11 - Encounter for screening for malignant neoplasm of colon (2) Atherosclerotic cardiovascular disease: Code(s): I25.10 - Atherosclerotic heart disease of [place] coronary artery without angina pectoris Category: Medical (3) Coronary artery disease status post coronary stent insertion: Comment: 12/20[facility] status post left heart cath with successful stenting of severe unstable 1st diagonal disease with KELLEN. Recommend continuing uninterrupted aspirin Plavix and statin. Code(s): I25.10 - Atherosclerotic heart disease of [place] coronary artery without angina pectoris; Z95.5 - Presence of coronary angioplasty implant and graft Category: Medical (4) Elevated LFTs: Code(s): R79.89 - Other specified abnormal findings of blood chemistry Category: Medical (5) Non-alcoholic fatty liver disease: Code(s): K76.0 - Fatty (change of) liver, not elsewhere classified Category: Medical Plan Due to patient's very recent cardiac stent patient will hold off with colonoscopy. Appointment with cardiology in March. History of non alcoholic fatty liver, patient reports never drank alcohol or never smoked. Will rule out out immune disorders and send her for abdominal ultrasound with liver elastography. She will return in 3-4 months to discuss results. She will call us sooner if she will have any GI concerning symptoms. History of impaction and constipation in the past, recently is moving her bowels well. Continue MiraLax, however patient was encouraged to purchase [id number] fiber with pre and probiotic. She is agreeable to this plan and verbalizes understanding of instructions. She was given the opportunity to ask questions and all questions answered. Thank you for allowing me to participate in her care Orders: Orders Alpha Fetoprotein Today R79.89 - Other specified abnormal findings of blood chemistry Prothrombin Time INR Today R74.8 - Abnormal levels of other serum enzymes Mitochondrial Antibody Today R79.89 - Other specified abnormal findings of blood chemistry Ferritin Today R74.8 - Abnormal levels of other serum enzymes Hepatitis A,B,C Profile Today R79.89 - Other specified abnormal findings of blood chemistry C Reactive Protein Today K58.9 - Irritable bowel syndrome, unspecified Smooth Muscle Antibody Today R79.89 - Other specified abnormal findings of blood chemistry Transglutaminase IgA Today R10.9 - Unspecified abdominal pain Liver Fibrosis Pnl Today K76.0 - Fatty (change of) liver, not elsewhere classified US abdomen comp w elastography Today R79.89 - Other specified abnormal findings of blood chemistry Coding Level of Care Code New Pt Level 4 (53051) Diagnoses Screen for colon cancer Z12.11 Atherosclerotic cardiovascular disease I25.10 Coronary artery disease status post coronary stent insertion I25.10; Z95.5 Elevated LFTs R79.89 Non-alcoholic fatty liver disease K76.0 Time Spent (min) 50 Comment 35 minutes spent with patient and additional 15 minutes spent reviewing her records
[2025-02-12 15:24] VITALS: BP 124/60; PULSE 72; O2SAT 99; BMI 33.4
--- OUTSIDE RECORDS SUMMARY | 2025-02-12 17:11 | XMS_ITS | Clinical Summary ---
Author Organization Formerly [facility] Address [address] [place] [address] Care Team Providers Care Unit Assembler Name Role Phone Ngoc Ordonez APRN Primary Care Provider + Beau Hays MD Unavailable [phone] Allergies Active Allergy Reactions Criticality Noted Date [...] coated (ECOTRIN LOW STRENGTH) 81 MG EC tabletIndications:NS LEISA (non-ST elevated myocardial infarction) (HCC) Take 1 tablet (81 mg total) by mouth daily. 30 tablet 2 12/26/2024 03/26/2025 Active atorvastatin (LIPITOR) 40 MG tabletIndications:NS LEISA (non-ST elevated myocardial infarction) (HCC) Take 1 tablet (40 mg total) by mouth nightly. 90 tablet 3 12/25/2024 12/20/2025 Active clopidogrel (PLAVIX) 75 MG tabletIndications:NS LEISA (non-ST elevated myocardial infarction) (HCC) Take 1 tablet (75 mg total) by mouth daily. 30 tablet 2 12/26/2024 03/26/2025 Active metoPROLOL SUCCINATE (TOPROL-XL) 25 MG 24 hr tabletIndications:NS LEISA (non-ST elevated myocardial infarction) (HCC) Take 1 tablet (25 mg total) by mouth daily. 30 tablet 12/25/2024 Active Active Problems Problem Noted Date Diagnosed Date NSTEMI (non-ST elevated myocardial infarction) 0 12/24/2024 Essential hypertension 12/24/2024 Type 2 diabetes mellitus wit hout complication, with long-term current use of insulin 12/24/2024 Mixed hyperlipidemia 12/24/2024 Fatty liver 12/24/2024 Encounters Date Type Department Care Team Description 01/07/2025 10:40 AM EST Office Visit [facility] [address] [phone] Beau Hays MD Hospital discharge follow-up (Primary Dx); Chest pain, unspecified type Discharge Disposition: Home or Self Care 01/07/2025 Orders Only [facility] [address] [phone] Yaima De Paz APRN Chest pain, unspecified type (Primary Dx); NSTEMI (non-ST elevated myocardial infarction) (HCC) 01/07/2025 Travel 12/24/2024 3:00 PM EST - 12/24/2024 3:58 PM EST Surgery [facility] Heart & Vascular [place] [facility] - Cardiac Catheterization Laboratory [address] [place] [phone] Santosh Brady MD CORONARY ANGIO W/LV 12/24/2024 1:26 PM EST - 12/25/2024 12:36 PM EST Hospital Encounter [facility] [address] [phone] Juwan Willingham MD Haider, Asim, MD NSTEMI (non-ST elevated myocardial infarction) (HCC) (Primary Dx) Discharge Disposition: Home or Self Care 12/24/2024 10:50 AM EST Ancillary Procedure [facility] [address] [place] [address] Provider, File Room 12/23/2024 Orders Only [facility] [address] [place] [address] Provider, File Room from Last 3 Months Social History Tobacco Use Types Packs/Day Years Used Date Smoking Tobacco: Never Assessed [facility] Utilities Answer Date Recorded In the past 12 months has [employer], gas, oil, or water [employer] threatened to shut off services in your [...] time in the past 12 m [facility], were you homeless or living in a chcf (including now)? No 12/25/2024 Sex and Gender [...] Influenza Vaccine 06/06/2024 COVID-19 Vaccine ( - 2023- season) 2024 Hemoglobin A1C 06/24/2025 12/25/2024 Creatinine with GFR 12/25/2025 12/25/2024, Foot Exam 12/25/2025 12/25/2024, 12/07, 12/24/2024, Additional history exists Lipid Panel 12/25/2025 12/25/2024 RSV Vaccine 60 years and older and Patients (1 - 1-dose 75+ series) 2030 Hepatitis B Vaccines Aged Out No long er eligible based on patient's age to complete this topic Medical Devices Implanted Type Area Basket Patcher Device Identifier Shelf Expiration Date Model / Serial / Lot [id number] Coronary Stent System Synergy Xd Mr 2.25mm 16mm Delivery Sys - [id number] Implanted:Qty : 1 on 12/24/2024 by Santosh Brady MD at [facility] Stent N/A: Coronary Labmeeting [id number] 02/20/2026 [id number] / / [id number] Procedures Procedure Name Priority Date/Time Associated Diagnosis [...] is included. Ventricular rate 71 BPM EKG [facility] Atrial rate 71 BPM EKG [facility] P-R interval 186 ms EKG [facility] QRS duration 90 ms EKG [facility] Q-T interval 362 ms EKG [facility] QTC calculation (Bazett) 393 ms EKG [facility] P axis 43 degrees EKG [facility] R axis 10 degrees EKG [facility] T axis 46 degrees EKG [facility] 01/07/2025 10:3 0 AM EST Narrative EKG [facility] - 01/07/2025 2:06 PM EST Normal sinus rhythm Possible Anterior infarct (cited on or before 24-Dec-2024) Abnormal ECG When compared with ECG of 24-Dec-2024 16:09, QT has shortened Confirmed by MD Isbell Anja ([id number]) on 01/07/2025 2:06:51 PM Procedure Note Gem Isbell MD - 01/07/2025 Normal sinus rhythm Possible Anterior infarct (cited on or before 24-Dec-2024) Abnormal ECG When compared with ECG of 24-Dec-2024 16:09, QT has shortened Confirmed by MD Isbell Anja ([id number]) on 01/07/2025 2:06:51 PM Gem Isbell MD ECG ORDERABLES EKG [facility] * ECHOCARDIOGRAM COMPREHENSIVE WITH CONTRAST (12/25/2024 8:38 [...] Consistent with diabetes Diabetes Care, 33(Supp 1):S1-S61, 2009 Estimated Average Glucose 140 mg/dL 12/25/2024 5:38 PM EST [facility] Blood Blood specimen / Unknown 12/25/2024 8:00 AM EST 12/25/2024 8:12 AM EST Keenan Arreguin MD LAB BLOOD ORDERABLES Performing Organization Address City/[facility]/ZIP Co de Phone Number [address] [address], [address] [address] * (ABNORMAL) POCT Glucose, Fingerstick (12/25/2024 7:39 [...] Count, with Differential (12/25/2024 5:33 AM EST) Pathologist [facility] White Blood Cell Count 5.1 4.0 - 11.0 Thou/uL 12/25/2024 6:12 AM EST [facility] Platelet Count 245 150 - 450 Thou/uL 12/25/2024 6:12 AM EST [facility] Hemoglobin 14.2 11.7 - 15.7 g/dL 12/25/2024 6:12 AM EST [facility] Hematocrit 42.9 35.0 - 47.0 % 12/25/2024 6:12 AM EST [facility] Red Blood Cell Count 4.57 4.00 - 5.40 Mil/uL 12/25/2024 6:12 AM EST [facility] MCV 94 80 - 100 fL 12/25/2024 6:12 AM EST [facility] MCH 31.1(H) 27.0 - 31.0 pg 12/25/2024 6:12 AM [facility] MCHC 33.1 30.0 - 36.0 g/dL 12/25/2024 6:12 AM [facility] RDW 12.2 11.5 - 14.5 % 12/25/2024 6:12 AM [facility] MPV 9.4 7.5 - 12.5 fL 12/25/2024 6:12 AM [facility] Neutrophils Auto 53.0 % 12/25/19 6:12 AM [facility] Immature Granulocytes 0.2 % 12/25/2024 6:12 AM [facility] Lymphocytes Auto 29.1 % 12/25/19 6:12 AM [facility] Monocytes Auto 10.8 % 12/25/2024 6:12 AM [facility] Eosinophils Auto 4.7 % 12/25/19 6:12 AM [facility] Basophils Auto 2.2 % 12/25/2024 6:12 AM [facility] Abs Neutrophils Auto 2.69 2.00 - 7.50 Thou/uL 12/25/2024 6:12 AM [facility] Abs Immature Granulocytes 0.01 0.00 - 0.10 Thou/uL 12/25/2024 6:12 AM [facility] Abs Lymphocytes Auto 1.48(L) 1.50 - 4.50 Thou/uL 12/25/2024 6:12 AM [facility] Abs Monocytes Auto 0.55 0.20 - 1.50 Thou/uL 12/25/2024 6:12 AM [facility] Abs Eosinophils Auto 0.24 0.00 - 0.70 Thou/uL 12/25/2024 6:12 AM [facility] Abs Basophils Auto 0.11 0.00 - 0.20 Thou/uL 12/25/2024 6:12 AM [facility] Blood Blood specimen / Unknown 12/25/2024 5:33 AM EST 12/25/2024 6:08 AM EST Kristina PETERS LAB BLOOD ORDERABLES [facility] [address] [place] [address], * Partial Thromboplastin Time (PTT) (12/25/2024 5:33 AM EST) Anticoagulant IV HEPARIN, UNFRACTIONATED 12/24/2024 11:01 PM EST [facility] Partial Thromboplastin Time (PTT) 33 26 - 37 seconds 12/25/2024 6:19 AM EST [facility] Blood Plasma specimen / Unknown 12/25/2024 5:33 AM EST 12/25/2024 6:08 AM EST Easton Aguirre PA-C LAB BLOOD ORDERABLES Performing Organization Address [facility]/[place] [address], * Protime-INR (12/25/2024 5:33 AM EST) Anticoagulant IV HEPARIN, UNFRACTIONATED 12/24/2024 11:01 PM EST [facility] Prothrombin Time (PT) 12.1 10.0 - 13.5 seconds 12/25/2024 6:19 AM EST [facility] INR 1.1 12/25/2024 6:19 AM EST [facility] Comment:INR Therapeutic Rang es: Standard dose anticoagulant 2.0 to 3.0, High dose anticoagulant 2.5-3.5. Blood Plasma specimen / Unknown 12/25/2024 5:33 AM EST 12/25/2024 6:08 AM EST Easton Aguirre PA-C LAB BLOOD ORDERABLES [address] [place] [address], [place] * (ABNORMAL) LIPID PANEL (12/25/2024 5:33 AM EST) Cholesterol, Total 168 <200 mg/dL 2024 8:24 AM EST [facility] Triglycerides 135 <150 mg/dL 12/25/2024 8:24 AM EST [facility] Cholesterol, HDL 43(L) >60 mg/dL 12/25/19 8:24 AM EST [facility] Estimated LDL 98 <130 mg/dL 12/25/2024 8:24 AM EST [facility] Comment: NCEP Guidelines: ?< 100 mg/dL ??Optimal 100 - 129 mg/dL ??Near Optimal/Above Optimal 130 - 159 mg/dL ??Borderline High 160 - 189 mg/dL ??High ??>/= 190 mg/dL ??Very High Cholesterol/HDL Ratio 3.9 0.0 - 5.0 Ratio 12/25/2024 8:24 AM EST [facility] Comment: Relative Risk ? Ratio - Male ? Ratio - Female ?0.5 ?3.4 ?3.3 ?1.0 ?5.0 ?4.4 ?2.0 ?9.6 ?7.1 ?3.0 ? 23.4 ? 11.0 Plasma/Serum 12/25/2024 5:33 AM EST 12/25/2024 6:08 AM EST Kristina PETERS LAB BLOOD ORDERABLES [facility] [address] [place] [address], [place] * (ABNORMAL) Comprehensive Metabolic Panel (12/25/2024 5:33 AM EST) Glucose 131(H) 74 - 106 mg/dL 12/25/2024 6:35 AM EST [facility] Comment:Fasting: <100 mg/dL, Non-Fasting: <200 mg/dL (ADA 2005) Blood Urea Nitrogen (BUN) 10 9 - 23 mg/dL 12/25/2024 6:35 AM EST [facility] Creatinine 0.9 0.6 - 1.0 mg/dL [...] - 1.2 mg/dL 12/25/2024 6:35 AM EST [facility] Protein, Total 7.5 5.7 - 8.2 g/dL 12/25/2024 6:35 AM EST [facility] Albumin 4.6 3.4 - 4.8 g/dL 12/25/2024 6:35 AM EST [facility] BUN/Creatinine Ratio 11 10.0 - 25.0 Ratio 12/25/2024 6:35 AM EST [facility] Globulin 2.9 1.5 - 3.9 g/dL 12/25/2024 6:35 AM EST [facility] Albumin/Globulin Ratio 1.6 1.5 - 2.5 Ratio 12/25/2024 6:35 AM EST [facility] Anion Gap 8 5 - 15 12/25/2024 6:35 AM EST [facility] Blood (Plasma/Serum) 12/25/2024 5:33 AM EST 12/25/2024 6:08 AM EST Kristina PETERS [place] [address], * Troponin I, High Sensitivity (Once) (12/24/2024 10:01 PM EST) Only the most recent of3 resultswithin the time period is included. Troponin I, High Sensitivity 29 <34 ng/L 12/24/2024 10:51 PM EST [facility] Delta (HS Troponin I) Unable to calculate result 12/24/2024 10:51 PM EST [facility] Blood Serum specimen / Unknown 12/24/2024 10:01 PM EST 12/24/2024 10:11 PM EST Kristina PETERS LAB BLOOD ORDERABLES [facility] [address] [place] [address], [place] * CC CORONARY ANGIO W/LV, CC KELLEN PLACEMENT, 1ST ARTERY (12/24/2024 3:56 PM EST) Anatomical Region Laterality Modality X-Ray Angiograph y Narrative 12/24/2024 4:05 PM EST Table formatting from the original result was not included. Images from the original result were not included. [facility] Heart & Vascular [place] [facility] - Cardiac Catheterization Laboratory PATIENT DEMOGRAPHIC INFORMATION Name: Heidi Hazel : 1955 69 y.o. Sex: female Gender: female Procedure Date: 12/24/2024 Referring Physician: Darian Valente PCP: No primary care provider on file. Procedure(s): Procedures: ??* CORONARY ANGIO W/LV ??* KELLEN PLACEMENT, 1ST ARTERY Indication: ? Gis Instructor: Santosh Brady MD Crop Ranch Hand(s): Vivek Kenny and Anibal Anginal Classification: Typical [...] unstable angina, abnormal stress test transferred from [facility]. ACCESS Access: Right Radial Artery Sheath(s): 6Fr [place] Sheath Hemostasis Method: TR Band DIAGNOSTIC FINDINGS [...] mariana. Inflation time: 8 sec. Supplies used: [id number] CORONARY STENT SYSTEM SYNERGY XD MR 2.25MM 16MM DELIVERY SYS Intervention Angioplasty ??was performed following stent deployment. Maximum pressure: 14 mariana. Inflation time: 6 sec. Multiple inflations Supplies used: [id number] CATHETER BALLOON DIL NC EMERGE MR 2.5MM 12MM 2 LUM TAPER TIP Intervention Angioplasty ??was performed following stent deployment. Maximum pressure: 18 mariana. Inflation time: 6 sec. Supplies used: [id number] CATHETER BALLOON DIL NC EMERGE MR 2.5MM 12MM 2 LUM TAPER TIP Post-Intervention Lesion Assessment The intervention was successful. The guidewire crossed the lesion. Post-intervention NAS flow is 3. Lesion had 10 mm of its length treated. The patient was therapeutically anticoagulated with intravenous bivalirudin. ??A 6 [place] EBU 3.5 guide sat fairly well. ??The [...] ??The LAD flow was excellent Supplies used: [id number] CORONARY STENT SYSTEM SYNERGY XD MR 2.25MM [...] this patient that I request from a [facility] PA/INTERNAL SALES ENGINEER/fellow/staff member. Santosh Brady MD [facility] [place] 12/24/2024 ??4:04 PM Coronary Findings Diagnostic Dominance: [...] mariana. Inflation time: 8 sec. Supplies Used: [id number] CORONARY STENT SYSTEM SYNERGY XD MR 2.25MM 16MM DELIVERY SYS Intervention: Angioplasty was performed following stent deployment. Maximum pressure: 14 mariana. Inflation time: 6 sec. Multiple inflations Supplies Used: [id number] CATHETER BALLOON DIL NC EMERGE MR 2.5MM 12MM 2 LUM TAPER TIP Intervention: Angioplasty was performed following stent deployment. Maximum pressure: 18 mariana. Inflation time: 6 sec. Supplies Used: [id number] CATHETER BALLOON DIL NC EMERGE MR 2.5MM 12MM 2 LUM TAPER TIP Post-Intervention Lesion Assessment: The intervention was successful. The guidewire crossed the lesion. Post-intervention NAS flow is 3. Lesion had 10 mm of its length treated. The patient was therapeutically anticoagulated with intravenous bivalirudin. A 6 [place] EBU 3.5 guide sat fairly well. The [...] The LAD flow was excellent Supplies Used: [id number] CORONARY STENT SYSTEM SYNERGY XD MR 2.25MM 16MM DELIVERY SYS There is a 0% residual stenosis post intervention. Cardiac Protocol CAD Kristina PETERS CV CARDIAC CATH ORDERABLES * (ABNORMAL) POCT Activated Clotting Time (ACT) (12/24/2024 3:45 PM EST) [facility] Activated Clotting Time, POC 407(A) 89 - 169 seconds Blood Blood specimen / Unknown Santosh Brady MD POINT OF CARE TEST O RDERABLES * Heparin Assay (Anti Xa) (12/24/2024 2:03 PM EST) [facility] Anti Xa 0.39 IU/mL 12/24/2024 3:42 PM EST [facility] Comment: (NOTE) Heparin Thromboembolic/Standard/Full Dose [...] IV HEPARIN, UNFRACTIONATED 12/24/2024 2:02 PM EST [facility] Blood Plasma specimen / Unknown 12/24/2024 2:03 PM EST 12/24/2024 3:09 PM EST Juwan Willingham MD LAB BLOOD ORDERABLES [facility] [address] [place] [address], * (ABNORMAL) Complete Blood Count, WITHOUT Differential (routine) (12/24/2024 2:02 PM EST) White Blood Cell Count 6.0 4.0 - 11.0 Thou/uL 12/24/2024 3:12 PM EST [facility] Platelet Count 270 150 - 450 Thou/uL 12/24/2024 3:12 PM EST [facility] Hemoglobin 14.6 11.7 - 15.7 g/dL 12/24/2024 3:12 PM EST [facility] Hematocrit 43.4 35.0 - 47.0 % 12/24/2024 3:12 PM EST [facility] Red Blood Cell Count 4.66 4.00 - 5.40 Mil/uL 12/24/2024 3:12 PM EST [facility] MCV 93 80 - 100 fL 12/24/2024 3:12 PM EST [facility] MCH 31.3(H) 27.0 - 31.0 pg 12/24/2024 3:12 PM EST [facility] MCHC 33.6 30.0 - 36.0 g/dL 12/24/2024 3:12 PM EST [facility] RDW 12.2 11.5 - 14.5 % 12/24/2024 3:12 PM [facility] MPV 9.8 7.5 - 12.5 fL 12/24/2024 3:12 PM EST [facility] Blood Blood specimen / Unknown 12/24/2024 2:02 PM EST 12/24/2024 3:08 PM EST Juwan Willingham MD LAB BLOOD ORDERABLES [facility] [address] [place] [address], * (ABNORMAL) Basic Metabolic Panel (Routine) (12/24/2024 2:02 PM EST) Glucose 130(H) 74 - 106 mg/dL 12/24/2024 3:33 PM [facility] Comment:Fasting: <100 mg/dL, Non-Fasting: <200 mg/dL (ADA 2004) Blood Urea Nitrogen (BUN) 13 9 - 23 mg/dL 12/24/2024 3:33 PM EST [facility] Creatinine 0.8 0.6 - 1.0 mg/dL 12/24/2024 3:33 PM EST [facility] eGFR 80 >59 12/24/2024 3:33 PM EST [facility] Comment:CKD-EPI (2020) in mL /min/1.73 sq meters. Sodium 139 136 - 145 mmol/L 12/24/2024 3:33 PM EST [facility] Potassium 3.8 3.4 - 4.5 mmol/L 12/24/2024 3:33 PM EST [facility] Chloride 103 98 - 107 mmol/L 12/24/2024 3:33 PM EST [facility] CO2 27 20 - 31 mmol/L 12/24/2024 3:33 PM EST [facility] Anion Gap 9 5 - 15 12/24/2024 3:33 PM EST [facility] Calcium 10.2 8.7 - 10.5 mg/dL 12/24/2024 3:33 PM EST [facility] BUN/Creatinine Ratio 16 10.0 - 25.0 Ratio 12/24/2024 3:33 PM EST [facility] Blood (Plasma/Serum) 12/24/2024 2:02 PM EST 12/24/2024 3:08 PM EST Juwan Willingham MD LAB BLOOD ORDERABLES [facility] [address] [place] [address], * CR Chest Archive for Reference only (12/24/2024 10:48 AM EST) Brandi BIRD - 12/24/2024 10:48 AM EST This study has been auto finalized and does not contain a result. File Room Provider IMG DIGITIZE FILMS MARGE [phone] from Last 3 Months Advance Directives * Full Code (Latest Code Status on File) Date Activated Date Inactivated Comments 12/24/2024 1:32 PM Care Teams Unit Assembler Relationship Specialty Start Date End Date Ngoc Ordonez APRN [address] [place] [phone] PCP - General Family Medicine 12/24/24 Beau Hays MD [address] [place] [address] Primary Wash Rack Operator Cardiovascular Disease 01/07/25
== END 2025-02-12 15:44 | disposition home or self-care (01) ==
LOC: HO.HGI 15:04
PROVIDERS: PCP Nurse Practitioner Family; Visit Provider Nurse Practitioner Family
DX: R74.01 Elevation of levels of liver transaminase levels (principal); K76.0 Fatty (change of) liver, not elsewhere classified
CPT/HCPCS: 99204

== ENCOUNTER 2025-02-28 08:19 | Outpatient (REF) | payer BC, SELFPAY ==
--- NOTE | ~2025-02-28 | MM_ITS ---
EXAMINATION: DXA BONE DENSITY AXIAL HISTORY: Z13.820 - Encounter for screening for osteoporosis TECHNIQUE: [employer] Dual energy absorptiometry (DEXA) of the lumbar spine, total left hip, and femoral neck was performed. COMPARISON: There are no prior studies for comparison. FINDINGS: The bone mineral density of the lumbar spine is 1.088 with a T-score of -0.7, and a Z-score of 0.6. This is indicative of normal bone mineral density. The bone mineral density of the left total hip is 0.914 with a T-score of -0.7, and a Z-score of 0.4. This is indicative of normal bone mineral density. The bone mineral density of the left femoral neck is 0.826 with a T-score of -1.5, and a Z-score of -0.1. This is indicative of osteopenia. FRACTURE RISK: The FRAX index suggests a risk of major osteoporotic fracture of 24.7%, and of hip fracture 4.1%. MM/XR DEXA axial skeleton IMPRESSION: Based on bone mineral density, and according to World Health Organization (WHO) criteria, the diagnosis is consistent with osteopenia. All bone density values are in grams per centimeter squared (g/cm2). Statistically, 68% of repeat scans fall within 1 SD (+/- 0.010 g/cm2 for AP spine L1-L4) and 1 SD (+/- 0.012 g/cm2 for femur total) FRAX is a trademark of the [employer] Met[employer] Disease, a World Health Organization (WHO) Collaborating Center. Electronically signed by: Bashir Weiner MD 02/28/2025 10:01 AM EDT
--- OUTSIDE RECORDS SUMMARY | 2025-02-28 08:24 | XMS_ITS | Clinical Summary ---
Author Organization Formerly [facility] Address [address] [place] [address] Care Team Providers Care [employer] Consultant Name Role Phone Ngoc Ordonez APRN Primary Care Provider + Beau Hays MD Unavailable [phone] Allergies Active Allergy Reactions Criticality Noted Date Comments Adhesives/Tape Itching Low 12/24/2024 Amoxicillin Unknown/Patient and Family Unable to Define Medium 12/24/2024 Genital swelling Codeine GI Intolerance/Nausea/Vomiti ng Low 12/24/2024 Gentamicin GI Intolerance/Nausea/Vomiti ng Low 12/24/2024 Lisinopril Kidney injury Medium 12/24/2024 Penicillin V Unknown/Patient and Family Unable to Define Medium 12/24/2024 Sulfa Antibiotics Hives Medium 12/24/2024 Medications amLODIPine (NORVASC) 10 MG tablet Take 1 [...] mg total) by mouth daily. Active Multiple Vitamins-Mineral s (multivitamin with minerals) tablet Take 1 tablet by mouth daily. Active busPIRone (BUSPAR) 5 MG tablet Take 1 tablet (5 mg total) by mouth 2 (two) times a day. Active omega-3 fatty acids (FISH OIL) 1000 MG Cap capsule Take 1 capsule (1,000 mg total) by mouth daily. Active aspirin enteric coated (ECOTRIN LOW STRENGTH) 81 MG EC tabletIndication s:NSTEMI (non-ST elevated myocardial infarction) (HCC) Take 1 tablet (81 mg total) by mouth daily. 30 tablet 2 12/26/2024 03/26/20 25 Active atorvastatin (LIPITOR) 40 MG tabletIndication s:NSTEMI (non-ST elevated myocardial infarction) (HCC) Take 1 tablet (40 mg total) by mouth nightly. 90 tablet 3 12/25/2024 12/20/19 26 Active clopidogrel (PLAVIX) 75 MG tabletIndication s:NSTEMI (non-ST elevated myocardial infarction) (HCC) Take 1 tablet (75 mg total) by mouth daily. 30 tablet 2 12/26/2024 03/26/20 25 Active metoPROLOL SUCCINATE (TOPROL-XL) 25 MG 24 hr tabletIndication s:NSTEMI (non-ST elevated myocardial infarction) (HCC) Take 1 [...] Description 01/07/2025 10:40 AM EST Office Visit [facility] [address] [phone] Beau Hays MD Hospital discharge follow-up (Primary Dx); Chest pain, unspecified type Discharge Disposition: Home or Self Care 01/07/2025 Orders Only [facility] [address] [place] [phone] Yaima De Paz APRN Chest pain, unspecified type (Primary Dx); NSTEMI (non-ST elevated myocardial infarction) (HCC) 01/07/2025 Travel 12/24/2024 3:00 PM EST - 12/24/2024 3:58 PM EST Surgery [facility] - Cardiac Catheterization Laboratory [address] [place] [address] Santosh Brady MD CORONARY ANGIO W/LV 12/24/2024 1:26 PM EST - 12/25/2024 12:36 PM EST Hospital Encounter [facility] [address] [address] Juwan Willingham MD Haider, Asim, MD NSTEMI (non-ST elevated myocardial infarction) (HCC) (Primary Dx) Discharge Disposition: Home or Self Care 12/24/2024 10:50 AM EST Ancillary Procedure [facility] [address] [place] [address] Provider, File Room 12/23/2024 Orders Only [facility] [address] [place] [address] Provider, File Room from Last 3 Months Social History Tobacco Use Types Packs/Day Years Used Date Smoking Tobacco: Never Assessed [facility] Utilities Answer Date Recorded In the past 12 months has [employer], gas, oil, or water [employer] threatened to shut off services in [...] any time in the past 12 m [facility], were you homeless or living in a halfway (including now)? No 12/25/2024 Comments Unknown Sex and Gender Information Value Date Recorded Sex Assigned at Female 12/24/2024 1:09 PM EST Legal Sex Female 9:16 AM EST Gender Identity Female 12/24/2024 1:09 PM [...] this topic Medical Devices Implanted Type Area Auto Motor Mechanic Device Identifier Shelf Expiration Date Model / Serial / Lot [id number] Coronary Stent System Synergy Xd Mr 2.25mm 16mm Delivery Sys - [id number] Implanted:Qty : 1 on 12/24/2024 by Santosh Brady MD at [facility] Stent N/A: Coronary [employer] DARSHANA [id number] 02/20/2026 [id number] / / [id number] Procedures Procedure Name Priority Date/Time Associated Diagnosis [...] is included. Ventricular rate 71 BPM EKG [facility] Atrial rate 71 BPM EKG [facility] P-R interval 186 ms EKG [facility] QRS duration 90 ms EKG [facility] Q-T interval 362 ms EKG [facility] QTC calculation (Bazett) 393 ms EKG [facility] P axis 43 degrees EKG [facility] R axis 10 degrees EKG [facility] T axis 46 degrees EKG [facility] 01/07/2025 10:3 0 AM EST Narrative EKG [facility] - 01/07/2025 2:06 PM EST Normal sinus rhythm Possible Anterior infarct (cited on or before 24-Dec-2024) Abnormal ECG When compared with ECG of 24-Dec-2024 16:09, QT has shortened Confirmed by MD Isbell Anja ([id number]) on 01/07/2025 2:06:51 PM Procedure Note Gem Isbell MD - 01/07/2025 Normal sinus rhythm Possible Anterior infarct (cited on or before 24-Dec-2024) Abnormal ECG When compared with ECG of 24-Dec-2024 16:09, QT has shortened Confirmed by MD Isbell Anja ([id number]) on 01/07/2025 2:06:51 PM us Gem Isbell MD ECG ORDERABLES Final Result EKG [facility] * ECHOCARDIOGRAM COMPREHENSIVE WITH CONTRAST [...] previous study for comparison in our system. us Juwan Willingham MD CV ECHO ORDERABLES Final Resu lt * (ABNORMAL) Hemoglobin A1c with Estimated Average Glucose (Add-On) (12/25/2024 8:00 AM EST) Hemoglobin A1C 6.5(H) <5.7 % 12/25/2024 5:38 PM EST [facility] Comment: A1c% ? Interpretation 5.7 - 6.0 ?Increase risk of diabetes 6.1 - 6.4 ?Higher risk of diabetes > or = 6.5 ?? Consistent with diabetes Diabetes Care, 33(Supp 1):S1-S61, 2010 Estimated Average Glucose 140 mg/dL 12/25/2024 5:38 PM EST [facility] Blood Blood specimen / Unknown 12/25/2024 8:00 AM EST 12/25/2024 8:12 AM EST Keenan Arreguin MD LAB BLOOD ORDERABLES Final Resul t Performing Organization Address City/[facility]/ZIP Co de Phone Number [address] [address], [address] [address] * (ABNORMAL) POCT Glucose, Fingerstick (12/25/2024 7:39 AM EST) Only the most recent of4 resultswithin the time period is included. POC Glucose 136(H) 65 - 99 mg/dL 12/25/2024 7:46 AM EST Comment:Notified RN Blood specimen / Unknown 12/25/2024 7:39 AM EST 12/25/2024 7:46 AM EST Keenan Arreguin MD POINT OF CARE TEST ORDERABLES Fi nal Result HOSPITAL LAB See Below * (ABNORMAL) Complete Blood Count, with Differential (12/25/2024 5:33 AM EST) White Blood Cell Count 5.1 4.0 - 11.0 Thou/uL 12/25/2024 6:12 AM EST [facility] Platelet Count 245 150 - 450 Thou/uL 12/25/2024 6:12 AM EST [facility] Hemoglobin 14.2 11.7 - 15.7 g/dL 12/25/2024 6:12 AM EST [facility] Hematocrit 42.9 35.0 - 47.0 % 12/25/2024 6:12 AM EST [facility] Red Blood Cell Count 4.57 4.00 - 5.40 Mil/uL 12/25/2024 6:12 AM [facility] MCV 94 80 - 100 fL 12/25/2024 6:12 AM [facility] MCH 31.1(H) 27.0 - 31.0 pg 12/25/2024 6:12 AM [facility] MCHC 33.1 30.0 - 36.0 g/dL 12/25/2024 6:12 AM [facility] RDW 12.2 11.5 - 14.5 % 12/25/2024 6:12 AM [facility] MPV 9.4 7.5 - 12.5 fL 12/25/2024 6:12 AM [facility] Neutrophils Auto 53.0 % 12/25/19 6:12 AM [facility] Immature Granulocytes 0.2 % 12/25/2024 6:12 AM [facility] Lymphocytes Auto 29.1 % 12/25/19 6:12 AM [facility] Monocytes Auto 10.8 % 12/25/2024 6:12 AM [facility] Eosinophils Auto 4.7 % 12/25/19 6:12 AM [facility] Basophils Auto 2.2 % 12/25/2024 6:12 AM [facility] Abs Neutrophils Auto 2.69 2.00 - 7.50 Thou/uL 12/25/2024 6:12 AM [facility] Abs Immature Granulocytes 0.01 0.00 - 0.10 Thou/uL 12/25/2024 6:12 AM [facility] Abs Lymphocytes Auto 1.48(L) 1.50 - 4.50 Thou/uL 12/25/2024 6:12 AM [facility] Abs Monocytes Auto 0.55 0.20 - 1.50 Thou/uL 12/25/2024 6:12 AM [facility] Abs Eosinophils Auto 0.24 0.00 - 0.70 Thou/uL 12/25/2024 6:12 AM EST [facility] Abs Basophils Auto 0.11 0.00 - 0.20 Thou/uL 12/25/2024 6:12 AM EST [facility] Blood Blood specimen / Unknown 12/25/2024 5:33 AM EST 12/25/2024 6:08 AM EST Kristina PETERS LAB BLOOD ORDERABL ES Final Result Performing Organization Address City/[facility]/[place] [address], [place] * Partial Thromboplastin Time (PTT) (12/25/2024 5:33 AM EST) Anticoagulant IV HEPARIN, UNFRACTIONATED 12/24/2024 11:01 PM EST [facility] Partial Thromboplastin Time (PTT) 33 26 - 37 seconds 12/25/2024 6:19 AM EST [facility] Blood Plasma specimen / Unknown 12/25/2024 5:33 AM EST 12/25/2024 6:08 AM EST Easton Aguirre PA-C LAB BLOOD ORDERABLES Final Resu lt Performing Organization Address City/[facility]/[place] [address], [place] * Protime-INR (12/25/2024 5:33 AM EST) Anticoagulant IV HEPARIN, UNFRACTIONATED 12/24/2024 11:01 PM EST [facility] Prothrombin Time (PT) 12.1 10.0 - 13.5 seconds 12/25/2024 6:19 AM EST [facility] INR 1.1 12/25/2024 6:19 AM EST [facility] Comment:INR Therapeutic Rang es: Standard dose anticoagulant 2.0 to 3.0, High dose anticoagulant 2.5-3.5. Blood Plasma specimen / Unknown 12/25/2024 5:33 AM EST 12/25/2024 6:08 AM EST us Easton Aguirre PA-C LAB BLOOD ORDERABLES Final Resu lt [facility] [address] [place] [address], * (ABNORMAL) LIPID PANEL (12/25/2024 5:33 AM EST) Cholesterol, Total 168 <200 mg/dL 2024 8:24 AM EST [facility] Triglycerides 135 <150 mg/dL 12/25/2024 8:24 AM EST [facility] Cholesterol, HDL 43(L) >60 mg/dL 12/25/19 8:24 AM EST [facility] Estimated LDL 98 <130 mg/dL 12/25/2024 8:24 AM EST [facility] Comment: NCEP Guidelines: ?< 100 mg/dL ??Optimal 100 - 129 mg/dL ??Near Optimal/Above Optimal 130 - 159 mg/dL ??Borderline High 160 - 189 mg/dL ??High ??>/= 190 mg/dL ??Very High Cholesterol/HDL Ratio 3.9 0.0 - 5.0 Ratio 12/25/2024 8:24 AM EST [facility] Comment: Relative Risk ? Ratio - Male ? Ratio - Female ?0.5 ?3.4 ?3.3 ?1.0 ?5.0 ?4.4 ?2.0 ?9.6 ?7.1 ?3.0 ? 23.4 ? 11.0 Plasma/Serum 12/25/2024 5:33 AM EST 12/25/2024 6:08 AM EST us Kristina PETERS LAB BLOOD ORDERABL ES Final Result [facility] [address] [place] [address], * (ABNORMAL) Comprehensive Metabolic Panel (12/25/2024 5:33 AM EST) Glucose 131(H) 74 - 106 mg/dL 12/25/2024 6:35 AM EST [facility] Comment:Fasting: <100 mg/dL, Non-Fasting: <200 mg/dL (ADA 2004) Blood Urea Nitrogen (BUN) 10 9 - 23 mg/dL 12/25/2024 6:35 AM EST [facility] Creatinine 0.9 0.6 - 1.0 mg/dL 12/25/2024 6:35 AM EST [facility] eGFR 69 >59 12/25/2024 6:35 AM EST [facility] Comment:CKD-EPI (2020) in mL /min/1.73 sq meters. Sodium 139 136 - 145 mmol/L 12/25/2024 6:35 AM EST [facility] Potassium 4.4 3.4 - 4.5 mmol/L 12/25/2024 6:35 AM EST [facility] Chloride 107 98 - 107 mmol/L 12/25/2024 6:35 AM EST [facility] CO2 24 20 - 31 mmol/L 12/25/2024 6:35 AM EST [facility] Calcium 10.1 8.7 - 10.5 mg/dL 12/25/2024 6:35 AM [facility] Alkaline Phosphatase 125(H) 32 - 122 U/L 12/25/2024 6:35 AM [facility] Aspartate Aminotrans (AST) 79(H) <34 U/L 12/25/2024 6:35 AM EST [facility] Alanine Aminotrans (ALT) 98(H) 7 - 35 U/L 12/25/2024 6:35 AM EST [facility] Bilirubin, Total 0.6 0.3 - 1.2 mg/dL 12/25/2024 6:35 AM EST [facility] Protein, Total 7.5 5.7 - 8.2 g/dL 12/25/2024 6:35 AM EST [facility] Albumin 4.6 3.4 - 4.8 g/dL 12/25/2024 6:35 AM EST [facility] BUN/Creatinine Ratio 11 10.0 - 25.0 Ratio 12/25/2024 6:35 AM EST [facility] Globulin 2.9 1.5 - 3.9 g/dL 12/25/2024 6:35 AM EST [facility] Albumin/Globulin Ratio 1.6 1.5 - 2.5 Ratio 12/25/2024 6:35 AM EST [facility] Anion Gap 8 5 - 15 12/25/2024 6:35 AM EST [facility] Blood (Plasma/Serum) 12/25/2024 5:33 AM EST 12/25/2024 6:08 AM EST us Kristina PETERS LAB BLOOD ORDERABL ES Final Result [facility] [address] [place] [address], * Troponin I, High Sensitivity (Once) (12/24/2024 10:01 PM EST) Only the most recent of3 resultswithin the time period is included. Troponin I, High Sensitivity 29 <34 ng/L 12/24/2024 10:51 PM EST [facility] Delta (HS Troponin I) Unable to calculate result 12/24/2024 10:51 PM EST [facility] Blood Serum specimen / Unknown 12/24/2024 10:01 PM EST 12/24/2024 10:11 PM EST us Kristina PETERS LAB BLOOD ORDERABL ES Final Result [facility] [address] [place] [address], [place] * CC CORONARY ANGIO W/LV, CC KELLEN PLACEMENT, 1ST ARTERY (12/24/2024 3:56 PM EST) Anatomical Region Laterality Modality X-Ray Angiograph y Narrative 12/24/2024 4:05 PM EST Table formatting from the original result was not included. Images from the original result were not included. [facility] Heart [facility] Vascular [facility] - Cardiac Catheterization Laboratory PATIENT DEMOGRAPHIC INFORMATION Name: Heidi Hazel : 1955 69 y.o. Sex: female Gender: female Procedure Date: 12/24/2024 Referring Physician: Darian Valente PCP: No primary care provider on file. Procedure(s): Procedures: ??* CORONARY ANGIO W/LV ??* KELLEN PLACEMENT, 1ST ARTERY Indication: ? Elastic Tape Inserter: Santosh Brady MD Radar Scientist(s): Vivek Kenny and None Anginal Classification: Typical [...] unstable angina, abnormal stress test transferred from [facility]. ACCESS Access: Right Radial Artery Sheath(s): 6Fr Handley Sheath Hemostasis Method: TR Band DIAGNOSTIC FINDINGS [...] mariana. Inflation time: 8 sec. Supplies used: [id number] CORONARY STENT SYSTEM SYNERGY XD MR 2.25MM 16MM DELIVERY SYS Intervention Angioplasty ??was performed following stent deployment. Maximum pressure: 14 mariana. Inflation time: 6 sec. Multiple inflations Supplies used: [id number] CATHETER BALLOON DIL NC EMERGE MR 2.5MM 12MM 2 LUM TAPER TIP Intervention Angioplasty ??was performed following stent deployment. Maximum pressure: 18 mariana. Inflation time: 6 sec. Supplies used: [id number] CATHETER BALLOON DIL NC EMERGE MR 2.5MM 12MM 2 LUM TAPER TIP Post-Intervention Lesion Assessment The intervention was successful. The guidewire crossed the lesion. Post-intervention NAS flow is 3. Lesion had 10 mm of its length treated. The patient was therapeutically anticoagulated with intravenous bivalirudin. ??A 6 Malian EBU 3.5 guide sat fairly well. 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 Santosh Brady MD [facility] [place] 12/24/2024 ??4:04 PM Coronary Findings Diagnostic Dominance: [...] mariana. Inflation time: 8 sec. Supplies Used: [id number] CORONARY STENT SYSTEM SYNERGY XD MR 2.25MM 16MM DELIVERY SYS Intervention: Angioplasty was performed following stent deployment. Maximum pressure: 14 mariana. Inflation time: 6 sec. Multiple inflations Supplies Used: [id number] CATHETER BALLOON DIL NC EMERGE MR 2.5MM 12MM 2 LUM TAPER TIP Intervention: Angioplasty was performed following stent deployment. Maximum pressure: 18 mariana. Inflation time: 6 sec. Supplies Used: [id number] CATHETER BALLOON DIL NC EMERGE MR 2.5MM 12MM 2 LUM TAPER TIP Post-Intervention Lesion Assessment: The intervention was successful. The guidewire crossed the lesion. Post-intervention NAS flow is 3. Lesion had 10 mm of its length treated. The patient was therapeutically anticoagulated with intravenous bivalirudin. A 6 Malian EBU 3.5 guide sat fairly well. The [...] The LAD flow was excellent Supplies Used: [id number] CORONARY STENT SYSTEM SYNERGY XD MR 2.25MM 16MM DELIVERY SYS There is a 0% residual stenosis post intervention. Cardiac Protocol CAD us Kristina PETERS CV CARDIAC CATH OR DERABLES Final Result * (ABNORMAL) POCT Activated Clotting Time (ACT) (12/24/2024 3:45 PM EST) [facility] Activated Clotting Time, POC 407(A) 89 - 169 seconds Blood Blood specimen / Unknown us Santosh Brady MD POINT OF CARE TEST ORDERABLES Final Result * Heparin Assay (Anti Xa) (12/24/2024 2:03 PM EST) [facility] Anti Xa 0.39 IU/mL 12/24/2024 3:42 PM EST [facility] Comment: (NOTE) Heparin Thromboembolic/Standard/Full Dose Protocol: Therapeutic [...] IV HEPARIN, UNFRACTIONATED 12/24/2024 2:02 PM EST [facility] Blood Plasma specimen / Unknown 12/24/2024 2:03 PM EST 12/24/2024 3:09 PM EST us Juwan Willingham MD LAB BLOOD ORDERABLES Final Re sult [facility] [address] [place] [address], [place] * (ABNORMAL) Complete Blood Count, WITHOUT Differential (routine) (12/24/2024 2:02 PM EST) White Blood Cell Count 6.0 4.0 - 11.0 Thou/uL 12/24/2024 3:12 PM EST [facility] Platelet Count 270 150 - 450 Thou/uL 12/24/2024 3:12 PM EST [facility] Hemoglobin 14.6 11.7 - 15.7 g/dL 12/24/2024 3:12 PM EST [facility] Hematocrit 43.4 35.0 - 47.0 % 12/24/2024 3:12 PM EST [facility] Red Blood Cell Count 4.66 4.00 - 5.40 Mil/uL 12/24/2024 3:12 PM EST [facility] MCV 93 80 - 100 fL 12/24/2024 3:12 PM EST [facility] MCH 31.3(H) 27.0 - 31.0 pg 12/24/2024 3:12 PM EST [facility] MCHC 33.6 30.0 - 36.0 g/dL 12/24/2024 3:12 PM EST [facility] RDW 12.2 11.5 - 14.5 % 12/24/2024 3:12 PM EST [facility] MPV 9.8 7.5 - 12.5 fL 12/24/2024 3:12 PM EST [facility] Blood Blood specimen / Unknown 12/24/2024 2:02 PM EST 12/24/2024 3:08 PM EST us Jwuan Willingham MD LAB BLOOD ORDERABLES Final Re sult [facility] [address] [place] [address], * (ABNORMAL) Basic Metabolic Panel (Routine) (12/24/2024 2:02 PM EST) Glucose 130(H) 74 - 106 mg/dL 12/24/2024 3:33 PM EST [facility] Comment:Fasting: <100 mg/dL, Non-Fasting: <200 mg/dL (ADA 2005) Blood Urea Nitrogen (BUN) 13 9 - 23 mg/dL 12/24/2024 3:33 PM EST [facility] Creatinine 0.8 0.6 - 1.0 mg/dL 12/24/2024 3:33 PM EST [facility] eGFR 80 >59 12/24/2024 3:33 PM EST [facility] Comment:CKD-EPI (2020) in mL /min/1.73 sq meters. Sodium 139 136 - 145 mmol/L 12/24/2024 3:33 PM EST [facility] Potassium 3.8 3.4 - 4.5 mmol/L 12/24/2024 3:33 PM EST [facility] Chloride 103 98 - 107 mmol/L 12/24/2024 3:33 PM EST [facility] CO2 27 20 - 31 mmol/L 12/24/2024 3:33 PM EST [facility] Anion Gap 9 5 - 15 12/24/2024 3:33 PM EST [facility] Calcium 10.2 8.7 - 10.5 mg/dL 12/24/2024 3:33 PM EST [facility] BUN/Creatinine Ratio 16 10.0 - 25.0 Ratio 12/24/2024 3:33 PM EST [facility] Blood (Plasma/Serum) 12/24/2024 2:02 PM EST 12/24/2024 3:08 PM EST us Juwan Willingham MD LAB BLOOD ORDERABLES Final Re sult [facility] [address] [place] [address], [place] * CR Chest Archive for Reference only (12/24/2024 10:48 AM EST) Narrative [facility] - 12/24/2024 10:48 AM EST This study has been auto finalized and does not contain a result. 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
== END 2025-02-28 08:20 | disposition home or self-care (01) ==
LOC: HO.MAMMO 08:19
PROVIDERS: PCP Nurse Practitioner Family; Visit Provider Nurse Practitioner Family
DX: Z12.31 Encounter for screening mammogram for malignant neoplasm of breast (principal); Z13.820 Encounter for screening for osteoporosis; Z78.0 Asymptomatic menopausal state
CPT/HCPCS: 77063; 77067; 77080

== ENCOUNTER → 2025-02-28 08:45 | Outpatient (BNV) | payer BC, SELFPAY | PROVIDERS: PCP Nurse Practitioner Family; Visit Provider Radiology Diagnostic Radiology | DX: E28.39 Other primary ovarian failure (principal) | CPT/HCPCS: 77080 ==

== ENCOUNTER 2025-03-13 11:29 | Outpatient (AMB) | payer BC, SELFPAY ==
[2025-03-13 11:34] VITALS: BMI 33.1
--- NOTE | 2025-03-13 11:34 | MHC.AMNUTRGE ---
VS Expanded 03/13/25 11:34 03/13/25 11:40 Height 5 ft 5 ft Weight 169 lb 5.04 oz 169 lb BMI 33.1 33.0 Intake Visit Reasons: DM/CVD Allergies lisinopril Allergy (Severe, Verified 02/12/25 15:25) Anaphylaxis Penicillins Allergy (Severe, Verified 02/12/25 15:25) Unknown Sulfa (Sulfonamide Antibiotics) Allergy (Severe, Verified 02/12/25 15:25) Unknown adhesive Allergy (Intermediate, Verified 02/12/25 15:25) red patches gentamicin Allergy (Unknown, Verified 02/12/25 15:25) Itching Nutrition Presentation Details: P presents for MNT for obesity and T2DM Pt reports makes the meal food frequency fruits: 2-3/d dairy: 3+/d ve-3/d starches >25 protein: 5-6 oz, 2x/d beverages: water, juice, milk physical activity: 45 min to 1 hr at cardiac rehab denies etoh/smoking BS Monitoring Most Recent Diabetes Results: Creatinine 0.80 mg/dL (0.5-1.4) 01/08/25 Blood Urea Nitrogen 12 mg/dL (9-16) 01/08/25 Sodium 138 mmol/L (135-145) 01/08/25 Potassium 4.1 mmol/L (3.3-5.1) 01/08/25 Chloride 104 mmol/L (96-108) 01/08/25 Carbon Dioxide 27 mmol/L (22-29) 01/08/25 Calcium 9.7 mg/dL (8.4-10.2) 01/08/25 AST 61 U/L (5-31) H 01/08/25 ALT 73 U/L (0-31) H 01/08/25 Total Protein 7.8 g/dL (6.5-8.0) 01/08/25 Albumin 4.4 g/dL (3.5-5.0) 01/08/25 LJT-Uwqpunc-Xb.Jeor Equation Height: 5 ft Weight: 169 lb Resting Metabolic Rate: 1217.82 Calculated Activity Level: Mild Activity Calories Needed to Maintain Weight: 1674.50 Diagnosis Nutrition problem #1: overweight/obesity As related to (etiology) #1: diagnosis As evidenced by (sign/symptom) #1: high BMI [facility] Medical History (Updated 03/02/25 @ 18:06 by Ngoc Ordonez [facility]) Non-alcoholic fatty liver disease Exhaustion Memory change Anxiety Hypertension Diabetes Abnormal colonoscopy Surgical History (Updated 02/12/25 @ 15:26 by ROSEMARY Hernandez) S/P cardiac cath History of colonoscopy (~2014) H/O eye surgery H/O cervical spine surgery History of back surgery H/O elbow surgery H/O wrist surgery H/O section Family History Sister Mental health disorder Substance abuse Cardiovascular disease Hypertension Thyroid disease Advancing dementia Brother Cancer Cardiovascular disease Hypertension Paternal Grandfather Cancer Father Cardiovascular disease Hypertension Mother Hypertension Daughter Thyroid disease Social History Household Members: Spouse Housing: House Are you a primary intensive care unit nurse to a significant other at home: No Do you presently have visiting nurse or other home services: No Alcohol intake: former Patient Tobacco Use Status: Never used Tobacco e-Cigarette/Vaping Use: Never Used Second Hand Smoke Exposure: No service: No Current occupational status: retired Cognitive needs: No Hearing needs: No Vision needs: No Assessment & Plan Assessment & Plan (1) Obesity (BMI 30.0-34.9): Code(s): E66.811 - Obesity, class 1 Category: Medical Plan: Wt: 77 Kg ( 03/30 ) Est kcal needs as per MSJ: 1700 (40% carb, 30% protein/fat) Est fluid needs as per 25-30 ml/d: 2300 Est prot per day as per 1 g/kg bw: 77 Recommend fiber intake : 8-10 g per day and gradually increase to 25-28 g per day for women and 35-38 g for men or as tolerated Recommend sodium intake per day : less than 2000 mg Educated patient on: ( R = reviewed V = verbalizes understanding N/R = needs review N/A = not applicable Food sources of carbohydrate, adequate serving sizes and its role in various health conditions: R V N/R Differences between complex carbohydrates a simple carbohydrates, role of fiber in diet: R Lean protein sources of foods: R Differences between types of fats and role in diet (mono on saturated fat fatty acids, saturated fatty acids, trans fats): R Food sources of sodium in salt and healthy modifications for heart health in kidney health: R V R/V Vitamins and minerals: R V N/R Healthy plate method concept: R V N/R Physical activity: Benefits a precaution: R V Patient Instructions: Practice mindful eating Choose whole grain foods following healthy plate method see meal plan ideas (60 g carb/fiber rich /low fat options0 Coding Level of Care Code Nutr Indiv Intake (07825) Diagnoses Obesity (BMI 30.0-34.9) E66.811 Time Spent (min) 30
--- OUTSIDE RECORDS SUMMARY | 2025-03-13 13:00 | XMS_ITS | Clinical Summary ---
Author Organization Formerly [facility] Address [address] [place] [address] Care Team Providers Care Web Project Manager Name Role Phone Ngoc Ordonez APRN Primary Care Provider + Beau Hays MD Unavailable [phone] Allergies Active Allergy Reactions Criticality Noted Date [...] Description 01/07/2025 10:40 AM EST Office Visit [facility] Heart [facility] Vascular [address] [phone] Beau Hays MD Hospital discharge follow-up (Primary Dx); Chest pain, unspecified type Discharge Disposition: Home or Self Care 01/07/2025 Orders Only [facility] [address] [place] [phone] Yaima De Paz APRN Chest pain, unspecified type (Primary Dx); NSTEMI (non-ST elevated myocardial infarction) (HCC) 01/07/2025 Travel 12/24/2024 3:00 PM EST - 12/24/2024 3:58 PM EST Surgery [facility] Heart & V[facility] [place] [facility] - Cardiac Catheterization Laboratory [address] [place] [address] Santosh Brady MD CORONARY ANGIO W/LV 12/24/2024 1:26 PM EST - 12/25/2024 12:36 PM EST Hospital Encounter SV [address] [phone] Juwan Willingham MD Haider, Asim, MD NSTEMI (non-ST elevated myocardial infarction) (HCC) (Primary Dx) Discharge Disposition: Home or Self Care 12/24/2024 10:50 AM EST Ancillary Procedure [facility] Radiology [address] [place] [address] Provider, File Room 12/23/2024 Orders Only [facility] [address] [place] [address] Provider, File Room from Last 3 Months Social History Tobacco Use Types Packs/Day Years Used Date Smoking Tobacco: Never Assessed [facility] Utilities Answer Date Recorded In the past 12 months has [employer], gas, oil, or water [employer] threatened to shut off services in your [...] time in the past 12 m [facility], were you homeless or living in a senior care (including now)? No 12/25/2024 Comments Unknown Sex [...] Bone Density (Females,Ages 65 and older) 2020 COVID-19 Vaccine (1 - season) 2024 Influenza Vaccine 06/06/2025 Hemoglobin A1C 06/24/2025 12/25/2024 Creatinine with GFR 12/25/2025 12/25/2024, Foot Exam 12/25/2025 12/25/2024, 12/07, 12/24/2024, Additional history exists Lipid Panel 12/25/2025 12/25/2024 RSV Vaccine 60 years and older and Patients (1 - 1-dose 75+ series) 2030 Hepatitis B Vaccines Aged Out No long er eligible based on patient's age to complete this topic Medical Devices Implanted Type Area Department Store Salesperson Device Identifier Shelf Expiration Date Model / Serial / Lot [id number] Coronary Stent System Synergy Xd Mr 2.25mm 16mm Delivery Sys - [id number] Implanted:Qty : 1 on 12/24/2024 by Santosh Brady MD at [facility] Stent N/A: [employer] DARSHANA [id number] 02/20/2026 [id number] / / [id number] Procedures Procedure Name Priority Date/Time Associated Diagnosis [...] is included. Ventricular rate 71 BPM EKG [facility] Atrial rate 71 BPM EKG [facility] P-R interval 186 ms EKG [facility] QRS duration 90 ms EKG [facility] Q-T interval 362 ms EKG [facility] QTC calculation (Bazett) 393 ms EKG [facility] P axis 43 degrees EKG [facility] R axis 10 degrees EKG [facility] T axis 46 degrees EKG [facility] 01/07/2025 10:3 0 AM EST Narrative EKG [facility] - 01/07/2025 2:06 PM EST Normal sinus rhythm Possible Anterior infarct (cited on or before 24-Dec-2024) Abnormal ECG When compared with ECG of 24-Dec-2024 16:09, QT has shortened Confirmed by MD Isbell Anja ([id number]) on 01/07/2025 2:06:51 PM Procedure Note Gem Isbell MD - 01/07/2025 Normal sinus rhythm Possible Anterior infarct (cited on or before 24-Dec-2024) Abnormal ECG When compared with ECG of 24-Dec-2024 16:09, QT has shortened Confirmed by MD Isbell Anja ([id number]) on 01/07/2025 2:06:51 PM us Gem Ibsell MD ECG ORDERABLES Final Result EKG [facility] * ECHOCARDIOGRAM COMPREHENSIVE WITH CONTRAST [...] 6.5(H) <5.7 % 12/25/2024 5:38 PM EST [facility] Comment: A1c% ? Interpretation 5.7 - 6.0 ?Increase risk of diabetes 6.1 - 6.4 ?Higher risk of diabetes > or = 6.5 ?? Consistent with diabetes Diabetes Care, 33(Supp 1):S1-S61, 2010 Estimated Average Glucose 140 mg/dL 12/25/2024 5:38 PM EST [facility] Blood Blood specimen / Unknown 12/25/2024 8:00 AM EST 12/25/2024 8:12 AM EST Keenan Arreguin MD LAB BLOOD ORDERABLES Final Resul t Performing Organization Address City/[facility]/ZIP Co de Phone Number [address] [address], [address] [address] * (ABNORMAL) POCT Glucose, Fingerstick (12/25/2024 7:39 [...] - 11.0 Thou/uL 12/25/2024 6:12 AM EST [facility] Platelet Count 245 150 - 450 Thou/uL 12/25/2024 6:12 AM EST [facility] Hemoglobin 14.2 11.7 - 15.7 g/dL 12/25/2024 6:12 AM EST [facility] Hematocrit 42.9 35.0 - 47.0 % 12/25/2024 6:12 AM EST [facility] Red Blood Cell Count 4.57 4.00 - 5.40 Mil/uL 12/25/2024 6:12 AM [facility] MCV 94 80 - 100 fL 12/25/2024 6:12 AM [facility] MCH 31.1(H) 27.0 - 31.0 pg 12/25/2024 6:12 AM [facility] MCHC 33.1 30.0 - 36.0 g/dL 12/25/2024 6:12 AM [facility] RDW 12.2 11.5 - 14.5 % 12/25/2024 6:12 AM [facility] MPV 9.4 7.5 - 12.5 fL 12/25/2024 6:12 AM [facility] Neutrophils Auto 53.0 % 12/25/19 6:12 AM [facility] Immature Granulocytes 0.2 % 12/25/2024 6:12 AM [facility] Lymphocytes Auto 29.1 % 12/25/19 6:12 AM [facility] Monocytes Auto 10.8 % 12/25/2024 6:12 AM [facility] Eosinophils Auto 4.7 % 12/25/19 6:12 AM [facility] Basophils Auto 2.2 % 12/25/2024 6:12 AM [facility] Abs Neutrophils Auto 2.69 2.00 - 7.50 Thou/uL 12/25/2024 6:12 AM [facility] Abs Immature Granulocytes 0.01 0.00 - 0.10 Thou/uL 12/25/2024 6:12 AM [facility] Abs Lymphocytes Auto 1.48(L) 1.50 - 4.50 Thou/uL 12/25/2024 6:12 AM [facility] Abs Monocytes Auto 0.55 0.20 - 1.50 Thou/uL 12/25/2024 6:12 AM [facility] Abs Eosinophils Auto 0.24 0.00 - 0.70 Thou/uL 12/25/2024 6:12 AM EST [facility] Abs Basophils Auto 0.11 0.00 - 0.20 Thou/uL 12/25/2024 6:12 AM EST [facility] Blood Blood specimen / Unknown 12/25/2024 5:33 AM EST 12/25/2024 6:08 AM EST Kristina PETERS LAB BLOOD ORDERABL ES Final Result Performing Organization Address City/[facility]/[place] [address], [place] * Partial Thromboplastin Time (PTT) (12/25/2024 5:33 AM EST) Anticoagulant IV HEPARIN, UNFRACTIONATED 12/24/2024 11:01 PM EST [facility] Partial Thromboplastin Time (PTT) 33 26 - 37 seconds 12/25/2024 6:19 AM EST [facility] Blood Plasma specimen / Unknown 12/25/2024 5:33 AM EST 12/25/2024 6:08 AM EST Easton Aguirre PA-C LAB BLOOD ORDERABLES Final Resu lt Performing Organization Address City/[facility]/[place] [address], [place] * Protime-INR (12/25/2024 5:33 AM EST) Anticoagulant IV HEPARIN, UNFRACTIONATED 12/24/2024 11:01 PM EST [facility] Prothrombin Time (PT) 12.1 10.0 - 13.5 seconds 12/25/2024 6:19 AM EST [facility] INR 1.1 12/25/2024 6:19 AM EST [facility] Comment:INR Therapeutic Rang es: Standard dose anticoagulant 2.0 to 3.0, High dose anticoagulant 2.5-3.5. Blood Plasma specimen / Unknown 12/25/2024 5:33 AM EST 12/25/2024 6:08 AM EST us Easton Aguirre PA-C LAB BLOOD ORDERABLES Final Resu lt [facility] [address] [place] [address], * (ABNORMAL) LIPID PANEL (12/25/2024 5:33 AM EST) Cholesterol, Total 168 <200 mg/dL 2024 8:24 AM EST [facility] Triglycerides 135 <150 mg/dL 12/25/2024 8:24 AM EST [facility] Cholesterol, HDL 43(L) >60 mg/dL 12/25/19 8:24 AM EST [facility] Estimated LDL 98 <130 mg/dL 12/25/2024 8:24 AM EST [facility] Comment: NCEP Guidelines: ?< 100 mg/dL ??Optimal 100 - 129 mg/dL ??Near Optimal/Above Optimal 130 - 159 mg/dL ??Borderline High 160 - 189 mg/dL ??High ??>/= 190 mg/dL ??Very High Cholesterol/HDL Ratio 3.9 0.0 - 5.0 Ratio 12/25/2024 8:24 AM EST [facility] Comment: Relative Risk ? Ratio - Male ? Ratio - Female ?0.5 ?3.4 ?3.3 ?1.0 ?5.0 ?4.4 ?2.0 ?9.6 ?7.1 ?3.0 ? 23.4 ? 11.0 Plasma/Serum 12/25/2024 5:33 AM EST 12/25/2024 6:08 AM EST us Kristina PETERS LAB BLOOD ORDERABL ES Final Result [facility] [address] [place] [address], * (ABNORMAL) Comprehensive Metabolic Panel (12/25/2024 5:33 AM EST) Glucose 131(H) 74 - 106 mg/dL 12/25/2024 6:35 AM EST [facility] Comment:Fasting: <100 mg/dL, Non-Fasting: <200 mg/dL (ADA 2004) Blood Urea Nitrogen (BUN) 10 9 - 23 mg/dL 12/25/2024 6:35 AM EST [facility] Creatinine 0.9 0.6 - 1.0 mg/dL 12/25/2024 6:35 AM EST [facility] eGFR 69 >59 12/25/2024 6:35 AM EST [facility] Comment:CKD-EPI (2020) in mL /min/1.73 sq meters. Sodium 139 136 - 145 mmol/L 12/25/2024 6:35 AM EST [facility] Potassium 4.4 3.4 - 4.5 mmol/L 12/25/2024 6:35 AM EST [facility] Chloride 107 98 - 107 mmol/L 12/25/2024 6:35 AM EST [facility] CO2 24 20 - 31 mmol/L 12/25/2024 6:35 AM EST [facility] Calcium 10.1 8.7 - 10.5 mg/dL 12/25/2024 6:35 AM [facility] Alkaline Phosphatase 125(H) 32 - 122 U/L 12/25/2024 6:35 AM [facility] Aspartate Aminotrans (AST) 79(H) <34 U/L 12/25/2024 6:35 AM EST [facility] Alanine Aminotrans (ALT) 98(H) 7 - 35 U/L 12/25/2024 6:35 AM EST [facility] Bilirubin, Total 0.6 0.3 - 1.2 mg/dL 12/25/2024 6:35 AM EST [facility] Protein, Total 7.5 5.7 - 8.2 g/dL 12/25/2024 6:35 AM EST [facility] Albumin 4.6 3.4 - 4.8 g/dL 12/25/2024 6:35 AM EST [facility] BUN/Creatinine Ratio 11 10.0 - 25.0 Ratio 12/25/2024 6:35 AM EST [facility] Globulin 2.9 1.5 - 3.9 g/dL 12/25/2024 6:35 AM EST [facility] Albumin/Globulin Ratio 1.6 1.5 - 2.5 Ratio 12/25/2024 6:35 AM EST [facility] Anion Gap 8 5 - 15 12/25/2024 6:35 AM EST [facility] Blood (Plasma/Serum) 12/25/2024 5:33 AM EST 12/25/2024 6:08 AM EST us Kristina PETERS LAB BLOOD ORDERABL ES Final Result [facility] [address] [place] [address], * Troponin I, High Sensitivity (Once) (12/24/2024 10:01 PM EST) Only the most recent of3 resultswithin the time period is included. Troponin I, High Sensitivity 29 <34 ng/L 12/24/2024 10:51 PM EST [facility] Delta (HS Troponin I) Unable to calculate result 12/24/2024 10:51 PM EST [facility] Blood Serum specimen / Unknown 12/24/2024 10:01 PM EST 12/24/2024 10:11 PM EST us Kristina PETERS LAB BLOOD ORDERABL ES Final Result [facility] [address] [place] [address], [place] * CC CORONARY ANGIO W/LV, CC KELLEN PLACEMENT, 1ST ARTERY (12/24/2024 3:56 PM EST) Anatomical Region Laterality Modality X-Ray Angiograph y Narrative 12/24/2024 4:05 PM EST Table formatting from the original result was not included. Images from the original result were not included. [facility] Heart & Vascular [place] [facility] - Cardiac Catheterization Laboratory PATIENT DEMOGRAPHIC INFORMATION Name: Heidi Hazel : 1955 69 y.o. Sex: female Gender: female Procedure Date: 12/24/2024 Referring Physician: Darian Valente PCP: No primary care provider on file. Procedure(s): Procedures: ??* CORONARY ANGIO W/LV ??* KELLEN PLACEMENT, 1ST ARTERY Indication: ? Water Proofer: Santosh Brady MD [employer] Labor(s): Vivek Kenny and None Anginal Classification: Typical [...] unstable angina, abnormal stress test transferred from [facility]. ACCESS Access: Right Radial Artery Sheath(s): 6Fr [place] Sheath Hemostasis Method: TR Band DIAGNOSTIC FINDINGS [...] mariana. Inflation time: 8 sec. Supplies used: [id number] CORONARY STENT SYSTEM SYNERGY XD MR 2.25MM 16MM DELIVERY SYS Intervention Angioplasty ??was performed following stent deployment. Maximum pressure: 14 mariana. Inflation time: 6 sec. Multiple inflations Supplies used: [id number] CATHETER BALLOON DIL NC EMERGE MR 2.5MM 12MM 2 LUM TAPER TIP Intervention Angioplasty ??was performed following stent deployment. Maximum pressure: 18 mariana. Inflation time: 6 sec. Supplies used: [id number] CATHETER BALLOON DIL NC EMERGE MR 2.5MM 12MM 2 LUM TAPER TIP Post-Intervention Lesion Assessment The intervention was successful. The guidewire crossed the lesion. Post-intervention NAS flow is 3. Lesion had 10 mm of its length treated. The patient was therapeutically anticoagulated with intravenous bivalirudin. ??A 6 Albanian EBU 3.5 guide sat fairly well. ??The [...] ??The LAD flow was excellent Supplies used: [id number] CORONARY STENT SYSTEM SYNERGY XD MR 2.25MM [...] this patient that I request from a [facility] PA/DRAIN LAYER/fellow/staff member. Santosh Brady MD [facility] Heart [facility] V[facility] [place] 12/24/2024 ??4:04 PM Coronary Findings Diagnostic Dominance: [...] mariana. Inflation time: 8 sec. Supplies Used: [id number] CORONARY STENT SYSTEM SYNERGY XD MR 2.25MM 16MM DELIVERY SYS Intervention: Angioplasty was performed following stent deployment. Maximum pressure: 14 mariana. Inflation time: 6 sec. Multiple inflations Supplies Used: [id number] CATHETER BALLOON DIL NC EMERGE MR 2.5MM 12MM 2 LUM TAPER TIP Intervention: Angioplasty was performed following stent deployment. Maximum pressure: 18 mariana. Inflation time: 6 sec. Supplies Used: [id number] CATHETER BALLOON DIL NC EMERGE MR 2.5MM 12MM 2 LUM TAPER TIP Post-Intervention Lesion Assessment: The intervention was successful. The guidewire crossed the lesion. Post-intervention NAS flow is 3. Lesion had 10 mm of its length treated. The patient was therapeutically anticoagulated with intravenous bivalirudin. A 6 Albanian EBU 3.5 guide sat fairly well. The [...] The LAD flow was excellent Supplies Used: [id number] CORONARY STENT SYSTEM SYNERGY XD MR 2.25MM 16MM DELIVERY SYS There is a 0% residual stenosis post intervention. Cardiac Protocol CAD us Kristina PETERS CV CARDIAC CATH OR DERABLES Final Result * (ABNORMAL) POCT Activated Clotting Time (ACT) (12/24/2024 3:45 PM EST) [facility] Activated Clotting Time, POC 407(A) 89 - 169 seconds Blood Blood specimen / Unknown us Santosh Brady MD POINT OF CARE TEST ORDERABLES Final Result * Heparin Assay (Anti Xa) (12/24/2024 2:03 PM EST) [facility] Anti Xa 0.39 IU/mL 12/24/2024 3:42 PM EST [facility] Comment: (NOTE) Heparin Thromboembolic/Standard/Full Dose [...] HEPARIN, UNFRACTIONATED 12/24/2024 2:02 PM EST [facility] Blood Plasma specimen / Unknown 12/24/2024 2:03 PM EST 12/24/2024 3:09 PM EST us Juwan Willingham MD LAB BLOOD ORDERABLES Final Re sult [facility] [address] [place] [address], [place] * (ABNORMAL) Complete Blood Count, WITHOUT Differential (routine) (12/24/2024 2:02 PM EST) White Blood Cell Count 6.0 4.0 - 11.0 Thou/uL 12/24/2024 3:12 PM EST [facility] Platelet Count 270 150 - 450 Thou/uL 12/24/2024 3:12 PM EST [facility] Hemoglobin 14.6 11.7 - 15.7 g/dL 12/24/2024 3:12 PM EST [facility] Hematocrit 43.4 35.0 - 47.0 % 12/24/2024 3:12 PM EST [facility] Red Blood Cell Count 4.66 4.00 - 5.40 Mil/uL 12/24/2024 3:12 PM EST [facility] MCV 93 80 - 100 fL 12/24/2024 3:12 PM EST [facility] MCH 31.3(H) 27.0 - 31.0 pg 12/24/2024 3:12 PM EST [facility] MCHC 33.6 30.0 - 36.0 g/dL 12/24/2024 3:12 PM EST [facility] RDW 12.2 11.5 - 14.5 % 12/24/2024 3:12 PM EST [facility] MPV 9.8 7.5 - 12.5 fL 12/24/2024 3:12 PM EST [facility] Blood Blood specimen / Unknown 12/24/2024 2:02 PM EST 12/24/2024 3:08 PM EST us Juwan Willingham MD LAB BLOOD ORDERABLES Final Re sult [facility] [address] [place] [address], * (ABNORMAL) Basic Metabolic Panel (Routine) (12/24/2024 2:02 PM EST) Glucose 130(H) 74 - 106 mg/dL 12/24/2024 3:33 PM EST [facility] Comment:Fasting: <100 mg/dL, Non-Fasting: <200 mg/dL (ADA 2005) Blood Urea Nitrogen (BUN) 13 9 - 23 mg/dL 12/24/2024 3:33 PM EST [facility] Creatinine 0.8 0.6 - 1.0 mg/dL 12/24/2024 3:33 PM EST [facility] eGFR 80 >59 12/24/2024 3:33 PM EST [facility] Comment:CKD-EPI (2020) in mL /min/1.73 sq meters. Sodium 139 136 - 145 mmol/L 12/24/2024 3:33 PM EST [facility] Potassium 3.8 3.4 - 4.5 mmol/L 12/24/2024 3:33 PM EST [facility] Chloride 103 98 - 107 mmol/L 12/24/2024 3:33 PM EST [facility] CO2 27 20 - 31 mmol/L 12/24/2024 3:33 PM EST [facility] Anion Gap 9 5 - 15 12/24/2024 3:33 PM EST [facility] Calcium 10.2 8.7 - 10.5 mg/dL 12/24/2024 3:33 PM EST [facility] BUN/Creatinine Ratio 16 10.0 - 25.0 Ratio 12/24/2024 3:33 PM EST [facility] Blood (Plasma/Serum) 12/24/2024 2:02 PM EST 12/24/2024 3:08 PM EST us Juwan Willingham MD LAB BLOOD ORDERABLES Final Re sult [facility] [address] [place] [address], [place] * CR Chest Archive for Reference only (12/24/2024 10:48 AM EST) Narrative [facility] - 12/24/2024 10:48 AM EST This study has been auto finalized and does not contain a result. us File Room Provider IMG DIGITIZE FILMS Final Resu lt [facility] [phone] from Last [address] [address] OUT OF STATE - PPO Advance Directives * Full Code (Latest Code Status on File) Date Activated Date Inactivated Comments 12/24/2024 1:32 PM Care Teams Web Project Manager Relationship Specialty Start Date End Date Ngoc Ordonez APRN [address] [place] [phone] PCP - General Family Medicine 12/24/24 Beau Hays MD [address] [place] [address] Primary Direct Sales Professional Cardiovascular Disease 01/07/25
[2025-03-17 20:45] VITALS: BMI 33.0
== END 2025-03-13 12:14 | disposition home or self-care (01) ==
LOC: HO.ENCR 11:30
PROVIDERS: PCP Nurse Practitioner Family; Visit Provider Dietitian, Registered
DX: E66.811 Obesity, class 1 (principal)

== ENCOUNTER → 2025-03-13 11:29 | Outpatient (BNVA) | payer BC, SELFPAY | PROVIDERS: PCP Nurse Practitioner Family; Visit Provider Dietitian, Registered | DX: E66.811 Obesity, class 1 (principal); Z68.33 Body mass index [BMI] 33.0-33.9, adult; E11.9 Type 2 diabetes mellitus without complications; Z71.3 Dietary counseling and surveillance | CPT/HCPCS: 97802 ==

== ENCOUNTER 2025-03-25 08:17 | Outpatient (AMB) | payer MEDICARE, SELFPAY ==
--- OUTSIDE RECORDS SUMMARY | 2025-03-25 08:24 | XMS_ITS | Clinical Summary ---
Author Organization Formerly [facility] Address [address] [place] [address] Care Team Providers Care Category Specialist Name Role Phone Ngoc Ordonez APRN Primary Care Provider + Beau Hays MD Unavailable [phone] Allergies Active Allergy Reactions Criticality Noted Date [...] 01/07/2025 10:40 AM EST Office Visit [facility]ly [facility] [address] [phone] Beau Hays MD Hospital discharge follow-up (Primary Dx); Chest pain, unspecified type Discharge Disposition: Home or Self Care 01/07/2025 Orders Only [facility] [address] [place] [address] Yaima De Paz APRN Chest pain, unspecified type (Primary Dx); NSTEMI (non-ST elevated myocardial infarction) (HCC) 01/07/2025 Travel from Last 3 Months Social History Tobacco Use Types Packs/Day Years Used Date Smoking Tobacco: Never Assessed [facility] Utilities Answer Date Recorded In [...] time in the past 12 m [facility], were you homeless or living in a intermediate (including now)? No 12/25/2024 Comments Unknown Sex [...] (Females,Ages 65 and older) 2020 COVID-19 Vaccine ( - season) 2024 Influenza Vaccine 06/06/2025 Hemoglobin [...] this topic Medical Devices Implanted Type Area Manager Of Global Device Identifier Shelf Expiration Date Model / Serial / Lot [id number] Coronary Stent System Synergy Xd Mr 2.25mm 16mm Delivery s - [id number] Implanted:Qty : 1 on 12/24/2024 by Santosh Brady MD at [facility] Stent N/A: Coronary [employer] [id number] 02/20/2026 [id number] / / [id number] Procedures Procedure Name Priority Date/Time Associated Diagnosis Comments ECG 12-LEAD Routine 01/07/2025 10:30 AM EST Hospital discharge follow-up HEMOGLOBIN A1C WITH ESTIMATED AVERAGE GLUCOSE Routine 12/25/2024 8:00 AM EST LIPID PANEL Routine 12/25/2024 5:33 AM EST COMPREHENSIVE METABOLIC PANEL Routine 12/25/2024 5:33 AM EST from Last 3 Months or Most Recently Relevant to Health Maintenance Results * ECG 12 lead (01/07/2025 10:30 AM EST) Pathologist [facility] Ventricular rate 71 BPM EKG [facility] Atrial rate 71 BPM EKG [facility] P-R interval 186 ms EKG [facility] QRS duration 90 ms EKG [facility] Q-T interval 362 ms EKG [facility] QTC calculation (Bazett) 393 ms EKG [facility] P axis 43 degrees EKG [facility] R axis 10 degrees EKG [facility] T axis 46 degrees EKG [facility] 01/07/2025 10:3 0 AM EST Narrative EKG [facility] - 01/07/2025 2:06 PM EST Normal sinus rhythm Possible Anterior infarct (cited on or before 24-Dec-2024) Abnormal ECG When compared with ECG of 24-Dec-2024 16:09, QT has shortened Confirmed by MD Isbell Anja ([id number]) on 01/07/2025 2:06:51 PM Procedure Note Gem Isbell MD - 01/07/2025 Normal sinus rhythm Possible Anterior infarct (cited on or before 24-Dec-2024) Abnormal ECG When compared with ECG of 24-Dec-2024 16:09, QT has shortened Confirmed by MD Isbell Anja ([id number]) on 01/07/2025 2:06:51 PM us Gem Isbell MD ECG ORDERABLES Final Result Performing Organization Address [facility] Co de Phone Number EKG [facility] * (ABNORMAL) Hemoglobin A1c with Estimated Average Glucose (Add-On) (12/25/2024 8:00 AM EST) Hemoglobin A1C 6.5(H) <5.7 % 12/25/2024 5:38 PM [facility] Comment: A1c% ? Interpretation 5.7 - 6.0 ?Increase risk of diabetes 6.1 - 6.4 ?Higher risk of diabetes > or = 6.5 ?? Consistent with diabetes Diabetes Care, 33(Supp 1):S1-S61, 2010 Estimated Average Glucose 140 mg/dL 12/25/2024 5:38 PM [facility] Blood Blood specimen / Unknown 12/25/2024 8:00 AM EST 12/25/2024 8:12 AM EST us Keenan Arreguin MD LAB BLOOD ORDERABLES Final Resul t Performing Organization Address [facility] Co de Phone Number [address] [address], [address] [address] * (ABNORMAL) LIPID PANEL (12/25/2024 5:33 AM EST) Cholesterol, Total 168 <200 mg/dL 2024 8:24 AM EST [facility] Triglycerides 135 <150 mg/dL 12/25/2024 8:24 AM EST [facility] Cholesterol, HDL 43(L) >60 mg/dL 12/25/19 8:24 AM EST [facility] Estimated LDL 98 <130 mg/dL 12/25/2024 8:24 AM EST [facility] Comment: NCEP Guidelines: ?< 100 mg/dL ??Optimal 100 - 129 mg/dL ??Near Optimal/Above Optimal 130 - 159 mg/dL ??Borderline High 160 - 189 mg/dL ??High ??>/= 190 mg/dL ??Very High Cholesterol/HDL Ratio 3.9 0.0 - 5.0 Ratio 12/25/2024 8:24 AM EST [facility] Comment: Relative Risk ? Ratio - Male ? Ratio - Female ?0.5 ?3.4 ?3.3 ?1.0 ?5.0 ?4.4 ?2.0 ?9.6 ?7.1 ?3.0 ? 23.4 ? 11.0 Plasma/Serum 12/25/2024 5:33 AM EST 12/25/2024 6:08 AM EST us Kristina PETERS LAB BLOOD ORDERABL ES Final Result [facility] [address] [place] [address], * (ABNORMAL) Comprehensive Metabolic Panel (12/25/2024 5:33 AM EST) Glucose 131(H) 74 - 106 mg/dL 12/25/2024 6:35 AM EST [facility] Comment:Fasting: <100 mg/dL, Non-Fasting: <200 mg/dL (ADA 2005) Blood Urea Nitrogen (BUN) 10 9 - 23 mg/dL 12/25/2024 6:35 AM [facility] Creatinine 0.9 0.6 - 1.0 mg/dL 12/25/2024 6:35 AM [facility] eGFR 69 >59 12/25/2024 6:35 AM [facility] Comment:CKD-EPI (2020) in mL /min/1.73 sq meters. Sodium 139 136 - 145 mmol/L 12/25/2024 6:35 AM [facility] Potassium 4.4 3.4 - 4.5 mmol/L 12/25/2024 6:35 AM [facility] Chloride 107 98 - 107 mmol/L 12/25/2024 6:35 AM [facility] CO2 24 20 - 31 mmol/L 12/25/2024 6:35 AM [facility] Calcium 10.1 8.7 - 10.5 mg/dL 12/25/2024 6:35 AM [facility] Alkaline Phosphatase 125(H) 32 - 122 U/L 12/25/2024 6:35 AM [facility] Aspartate Aminotrans (AST) 79(H) <34 U/L 12/25/2024 6:35 AM [facility] Alanine Aminotrans (ALT) 98(H) 7 - 35 U/L 12/25/2024 6:35 AM [facility] Bilirubin, Total 0.6 0.3 - 1.2 mg/dL 12/25/2024 6:35 AM [facility] Protein, Total 7.5 5.7 - 8.2 g/dL 12/25/2024 6:35 AM [facility] Albumin 4.6 3.4 - 4.8 g/dL 12/25/2024 6:35 AM [facility] BUN/Creatinine Ratio 11 10.0 - 25.0 Ratio 12/25/2024 6:35 AM [facility] Globulin 2.9 1.5 - 3.9 g/dL 12/25/2024 6:35 AM EST [facility] Albumin/Globulin Ratio 1.6 1.5 - 2.5 Ratio 12/25/2024 6:35 AM EST [facility] Anion Gap 8 5 - 15 12/25/2024 6:35 AM EST [facility] Blood (Plasma/Serum) 12/25/2024 5:33 AM EST 12/25/2024 6:08 AM EST us Kristina PETERS LAB BLOOD ORDERABL ES Final Result [facility] [address] [place] [address], from Last 3 Months or Most Recently Relevant to Health Maintenance Insurance - O Advance Directives * Full Code (Latest Code Status on File) Date Activated Date Inactivated Comments 12/24/2024 1:32 PM Care Teams Category Specialist Relationship Specialty Start Date End Date Ngoc Ordonez APRN [address] [place] [phone] PCP - General Family Medicine 12/24/24 Beau Hays MD [address] [place] [address] Primary Nutrition Helper Cardiovascular Disease 01/07/25
--- NOTE | 2025-03-25 08:27 | A.OFFPC_ITS ---
Vital Signs 3 03/25/25 08:33 Height 5 ft Weight 168 lb 6 oz BMI 32.9 BP 132/70 Blood Pressure Location Rt brachial Position Sitting Respiration 12 Pulse 72 Pulse Source Pulse Oximeter Temp 97.4 F Temp Source Oral Pulse Oximetry (%) 96 Oxygen Delivery Method Room Air Intake Visit Reasons: 30 min fu chronic conditions /pain bilateral legs Intake Note: Routine Follow up Furnace Combination Analyst Required: No Allergies lisinopril Allergy (Severe, Verified 03/25/25 09:00) Anaphylaxis Penicillins Allergy (Severe, Verified 03/25/25 09:00) Unknown Sulfa (Sulfonamide Antibiotics) Allergy (Severe, Verified 03/25/25 09:00) Unknown adhesive Allergy (Intermediate, Verified 03/25/25 09:00) red patches gentamicin Allergy (Unknown, Verified 03/25/25 09:00) Itching Medication List - Last Reconciled 03/25/25 by Ngoc Ordonez, [facility]- amlodipine 10 mg PO DAILY aspirin 81 mg PO DAILY atorvastatin 40 mg PO BEDTIME blood sugar diagnostic ([facility] test strips) TEST BLOOD SUGAR 3 TIMES A DAY blood sugar diagnostic (Blood Glucose Test strips) As directed buspirone 5 mg PO DAILY clobetasol 0.05% 1 appl topical BID clopidogrel (Plavix) 75 mg PO DAILY cyanocobalamin (vitamin B-12) 2,000 mcg PO DAILY dapagliflozin propanediol (Farxiga) 10 mg PO DAILY ferrous sulfate 325 mg PO DAILY lancets ([facility] Delica Plus Lancet) POC testing TID loratadine (Allergy Relief (loratadine)) 10 mg PO DAILY losartan 100 mg PO DAILY magnesium 500 mg PO DAILY mecobalamin (vitamin B12) (B12 Active) 2,000 mcg (2 x 1,000 mcg) PO DAILY metformin 1,000 mg PO BID methocarbamol 750 mg PO NEEDED metoprolol succinate ER 25 mg PO DAILY naproxen 500 mg PO BID nitroglycerin 0.4 mg sublingual Q5M PRN pantoprazole 40 mg PO USEASDIRECTD polyethylene glycol 3350 (Miralax) 17 grams PO DAILY Tobacco use date assessed: 03/25/25 Fall risk assessment: No Falls in past year Last assessed Fall Risk: 03/25/25 Dental Screening Dental Screen Date: 03/25/25 Did you have a dental visit in the last 12 months?: Yes Did you have a dental problem in the last 6 months where you did not have access to dental care?: No Was dental information given to patient?: Patient has dentist HPI HPI Comments 2 History of Present Illness0 Details 69-year-old female with diabetes type 2 with complication, hypertension, hyperlipidemia, fatty liver, obesity, chronic back pain, seasonal allergies, GERD, b12 def , CAD s/p KELLEN 12/2024, constipation Status post multiple orthopedic surgeries to include spinal surgery, status post left heart cath with successful stenting of severe unstable 1st diagonal disease with KELLEN 12/2024 [facility] Maintenance: UTD on Flu Tdap 2020 Colon due for repeat 03/2025 mammo wnl 02/2025 DEXA osteopenia, repeat 2 years Pap referred to SYSTEMS INTEGRATION [facility]NALYST Specialist GI Cards Optho appt 12/25/24 Neuro Cardiac rehab active [employer] [facility]GR[employer] [facility]NALYST History of Present Illness - The patient is a 69-year-old female wi th a history of multiple chronic medical conditions, presenting for routine follow-up and new concerns related to leg discomfort and a dermatologic issue. - She has a comprehensive pharmacologic regimen for her conditions, including type 2 diabetes, hypertension, and hyperlipidemia. - Recent cardiac procedures include sten t placement for coronary artery disease. - In addition, she has documented vitami n B12 deficiency and GERD, the latter being managed with PPIs. - She reports a recent rash potentially related to gardening and latex gloves, managed initially with antifungal treatment, improved but cont. L palm - Family dynamics impact her ability to engage fully in cardiac rehabilitation, contributing to feelings of depression and challenges in weight management. Would like to see a counselor. Denies SI/HI. HTN well controlled on current meds No chest pain Due for labs, will get done today. Urinary incont. Exam Awake alert oriented Regular rate and rhythm Lung sounds clear to auscultation bilat Abd soft, nontender, normoactive BS x 4 No edema to bilateral lower extremities. Positive varicose veins. + PP Normal strength tone and reflexes BLE Mood and affect appropriate. Left palm Consult notes reviewed: GI and Cards Results See below. A1c 5.8% Lipid profile @ goal PTH now normal. LFT elevated - known issue, active w [facility] for this. Discussion Notes During today?s visit, I discussed the patient's ongoing management of her chronic conditions, including type 2 diabetes, hypertension, and hyperlipidemia. We reviewed the current medication regimen; recommended follow-up with a vascular specialist to evaluate her leg discomfort further, suspecting possible vascular issues yet not excluding musculoskeletal concerns. A referral to urology was suggested to explore options for urinary incontinence, emphasizing possible procedural interventions rather than pharmacologic solutions. Given the rash on her palm, we discussed integrating a regimen of topical cortisone mixed with CeraVe, to be applied at night under occlusion. We explored her social dynamics and highlighted the potential benefit of counseling, encouraging her to engage with community resources for additional support. Assessment and Plan 1. Type 2 Diabetes Mellitus Continue current medications and monitor A1c levels; consult diabetic pre parole counseling aide regarding alternative glucose monitoring options, as she is interested in CGM but is not currently on insulin. A1c at goal. 2. Essential Hypertension At goal on current meds, cont. 3. Hyperlipidemia Maintain atorvastatin treatment, ensuring periodic lipid monitoring. 4. Coronary Artery Disease Adhere to prescribed antiplatelet regimen; reinforce regular cardiology follow- ups. In cardiac rehab 5. Gastroesophageal Reflux Disease Continue PPIs and advise on dietary modifications to control symptoms. 6. Vitamin B12 Deficiency Continue current supplementation therapy. 7. BLE pain, ? claudication Initiate referral for vascular evaluation; consider musculoskeletal systems if circulation issues not predominant. 8. Contact Dermatitis Begin recommended topical regimen and monitor outcome. 9. Urinary Incontinence Initiate urology referral for evaluation; use bedside commode as an interim measure. 10. Depression Encourage engagement with counseling resources to address situational depression and coping skills. Denies si/hi. Crisis info provided. Patient Instructions - Continue all current medications as pr escribed, maintaining adherence. - Attend upcoming lab tests and follow-u ps as scheduled. - Follow referral recommendations to vas elisear and urology specialists. - Implement topical regimen for dermatit is on the palm as instructed. - Counseling referral for additional sup port and coping skills. - Monitor skin condition, urinary sympto ms, and discuss any changes with healthcare providers. - Stay hydrated, balancing intake with n ecessitated bathroom access adjustments. - Maintain physical activity as possible , noting any exacerbation during or post-exercise. RTO 4 mo routine fu, sooner PRN Total time spent caring for the patient today was 45 minutes. This includes time spent before the visit reviewing the chart, time spent during the visit, and time spent after the visit on documentation, reviewing laboratory results, diagnostic imaging, medications, performing a medically necessary evaluation, counseling on diagnoses, care coordination, ordering appropriate tests, ordering appropriate medications, review of tests performed by other providers, reporting test results with the patient, communication with other healthcare providers. [facility] Medical History (Updated 03/25/25 @ 17:26 by Ngoc Ordonez [facility]) Abnormal colonoscopy Anxiety Diabetes Exhaustion Hypertension Memory change Non-alcoholic fatty liver disease Surgical History (Updated 02/12/25 @ 15:26 by ROSEMARY Hernandez) H/O cervical spine surgery H/O section H/O elbow surgery H/O eye surgery H/O wrist surgery History of back surgery History of colonoscopy (~2014) S/P cardiac cath Family History Sister Mental health disorder Substance abuse Cardiovascular disease Hypertension Thyroid disease Advancing dementia Brother Cancer Cardiovascular disease Hypertension Paternal Grandfather Cancer Father Cardiovascular disease Hypertension Mother Hypertension Daughter Thyroid disease Social History Household Members: Spouse Housing: House Are you a primary post acute care nurse to a significant other at home: No Do you presently have visiting nurse or other home services: No Alcohol intake: former Patient Tobacco Use Status: Never used Tobacco e-Cigarette/Vaping Use: Never Used Second Hand Smoke Exposure: No service: No Current occupational status: retired Cognitive needs: No Hearing needs: No Vision needs: No Questionnaire Thrive Questionnaire Date Thrive assessed: 11/27/24 I am a: Patient What is your living situation today?: I have a steady place to live Within the past 12 months, did the food you bought not last and you didn't have the money to get more?: Never true Within the past 12 months, did you worry whether your food would run out before you got money to buy more?: Never true Do you have trouble paying for medicines?: No Do you have trouble getting transportation to medical appointments?: No Do you have trouble paying your heating and electricity bill?: No Do you have trouble taking care of your child, family member or friend?: No Do you have trouble with day-to-day activities such as bathing, preparing meals, shopping, managing finances, etc.?: No Are you currently unemployed and looking for a job?: No Are you interested in more education?: No Please select the resources that you would like help with: None Currently or been in a relationship where the following occur: No concerns reported THRIVE Score: 0 KAREN-7 AMB Questionnaire KAREN-7 Date KAREN - 7 assessed: 01/08/25 Source: Developed by Drs. Bashir Pillai, Vivienne Brower, Kendall Meehan and colleagues, with an educational yuki from [employer]. Physical exam (Primary Care) Vital Signs: Last Vital Signs Temp 97.4 F 03/25/25 08:33 Pulse 72 03/25/25 08:33 Resp 12 03/25/25 08:33 BP 132/70 03/25/25 08:33 Pulse Ox 96 03/25/25 08:33 Oxygen Delivery Method Room Air 03/25/25 08:33 BMI result Body Mass Index 32.9 Tobacco/Smoking Status: Tobacco use Status Tobacco use date assessed 03/25/25 03/25/25 08:31 Patient Tobacco Use Status Never used Tobacco 03/25/25 08:28 e-Cigarette/Vaping Use Never Used 03/25/25 08:28 Thrive Assessment: Date of Thrive Assessment Date Thrive assessed 11/27/24 03/25/25 08:28 Currently or been in a relationship where the following occur: No concerns reported Results Reviewed Results Reviewed: ENTERED: 03/25/25-0943 INDIGO NUÑEZ: ORDERED: CMP, Lipid Panel, Vitamin D 25-OH Test Result Flag Reference Sodium 138 135-145 mmol/L Potassium 4.5 3.3-5.1 mmol/L CL 104 96-108 mmol/L CO2 26 22-29 mmol/L Gap 13 12-20 BUN 26 H 9-16 mg/dL Creat 0.89 0.5-1.4 mg/dL eGFR > 60 Chronic Kidney Disease: Estimated GFR < 60 mL/min/1.73m2 Severe Kidney Disease: Estimated GFR < 15 mL/min/1.73m2 Glucose, Random 113 60-115 mg/dL CA 10.5 # H 8.4-10.2 mg/dL Total Bili 0.5 0.0-1.0 mg/dL AST (GOT) 48 H 5-31 U/L ALT (GPT) 48 H 0-31 U/L Protein, Total 7.5 6.5-8.0 g/dL Alb 4.5 3.5-5.0 g/dL Triglyceride 91 <150 mg/dL Desirable Triglyceride: less than 150 mg/dL Borderline High Triglyceride 150-199 mg/dL High Triglyceride: 200-499 mg/dL Very High Triglyceride: greater than or equal to 5OO mg/dL Cholesterol 92 <200 mg/dL Desirable Cholesterol: less than 200 mg/dL Borderline High Cholesterol: 200-239 mg/dL High Cholesterol: greater than 239 mg/dL LDL Calculated 34 <100 mg/dL Desirable LDL: less than 100 mg/dL Near Optimal/Above Optimal LDL: 110-129 mg/dL Borderline High LDL: 130-159 mg/dL High LDL: 160-189 mg/dL Very High LDL: greater than or equal to 190 mg/dL HDL 40 L >40 mg/dL Desirable HDL: greater than 40 mg/dL Note: This HDL assay may give artificially low results in patients with liver disease. Alk Phos 139 H 39-117 U/L Vitamin D 25-OH 74.4 >30 ng/mL Health Based Reference Values* < 20 ng/mL Deficient 20-30 ng/mL Insufficient > 30 ng/mL Sufficient *Todd JAIMES. N Engl J Med. 2007;357:266-280 There is no well-established upper level of normal vitamin D levels. Some laboratories use 50 ng/mL as an upper limit of normal. However, toxicity is patient-dependent and may occur at any level. Careful correlation with the patient's presentation is necessary and, if there is concern for vitamin D toxicity, treatment should be considered irrespective of the serum level. Care must be taken in interpreting Vitamin D results from different laboratories and methodologies. Published data demonstrated that results from patients undergoing hemodialysis may show a negative bias when tested with various automated 25-OH vitamin D assays when compared to LC-MS/MS. When testing samples from patients whose predominant form of Vitamin D is Vitamin D2, such as patients receiving Vitamin D2 supplementation, results that are subtherapeutic should be confirmed with another method such as LC-MS/MS. 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 Assessment & Plan Assessment & Plan (1) Diabetes mellitus type 2 with complications: Comment: htn and hld Code(s): E11.8 - Type 2 diabetes mellitus with unspecified complications Category: Medical (2) Atherosclerotic cardiovascular disease: Code(s): I25.10 - Atherosclerotic heart disease of [place] coronary artery without angina pectoris Category: Medical (3) Coronary artery disease status post coronary stent insertion: Comment: 12/2024 [facility] status post left heart cath with successful stenting of severe unstable 1st diagonal disease with KELLEN. Recommend continuing uninterrupted aspirin Plavix and statin. Code(s): I25.10 - Atherosclerotic heart disease of [place] coronary artery without angina pectoris; Z95.5 - Presence of coronary angioplasty implant and graft Category: Surgical (4) Status post coronary artery stent placement: Code(s): Z95.5 - Presence of coronary angioplasty implant and graft Category: Surgical (5) Adult situational stress disorder: Code(s): F43.20 - Adjustment disorder, unspecified Category: Medical (6) Pain in both lower legs: Code(s): M79.661 - Pain in right lower leg; M79.662 - Pain in left lower leg Category: Medical (7) Urinary incontinence: Code(s): R32 - Unspecified urinary incontinence Category: Medical Qualifiers: Urinary Incontinence type: continuous leakage Qualified Code(s): N39.45 - Continuous leakage (8) B12 deficiency: Code(s): E53.8 - Deficiency of other specified B group vitamins Category: Medical (9) Elevated LFTs: Code(s): R79.89 - Other specified abnormal findings of blood chemistry Category: Medical (10) Fatty liver: Code(s): K76.0 - Fatty (change of) liver, not elsewhere classified Category: Medical (11) Hypertension: Code(s): I10 - Essential (primary) hypertension Category: Medical Qualifiers: Hypertension type: secondary to endocrine disorders Qualified Code(s): I15.2 - Hypertension secondary to endocrine disorders Plan . Orders: Orders 2 Hemoglobin A1c Today E11.8 - Type 2 diabetes mellitus with unspecified complications Referrals 2 Vascular Surgery Referral I25.10 - Atherosclerotic heart disease of [place] coronary artery without angina pectoris, M79.661 - Pain in right lower leg, M79.662 - Pain in left lower leg Urology Referral R32 - Unspecified urinary incontinence Nurse Navigator Referral F43.20 - Adjustment disorder, unspecified Medications: Refilled 2 amlodipine 10 mg PO DAILY 90 tabs 1RF Patient Instructions: National Suicide and Crisis Lifeline: Available 24 hours a day, 7 days a week, 365 days a year Dial 988 with any telephone to speak to someone immediately [facility] (Mental / Behavioral health therapist: [address], [place] [id number] [facility]: [address], [place] [id number] Open from 10am - 12pm (walk ins welcome) [facility] Crisis Services: [address], [place] [id number] Walk in hours from 10am - 12pm Behavioral health Network: [address] [place] [address] [place] [id number] Monday through Monday 8am - 8pm Monday and Monday 9am - 5pm Crisis Hotlines Suicide prevention, domestic violence, and other crisis hotlines for youth, young adults, and their friends and families. [place] [employer] Safeline: The [place] Safeline helps youth who have run away, are thinking about running away, or who already ran away but are ready to come home. Parents and guardians can also contact the hotline if they are worried about their child running away or if their child has already left home. The hotline is available 24 hours a day, seven days a week. Youth, parents, and guardians can also use the online chat feature on the [employer]'s website to ask for help and get support, [place] [address]. [place] [facility] National Suicide Prevention Lifeline: The National Suicide Prevention Lifeline is a network of local crisis centers that are available 29/05 to provide support for youth and adults who are in any kind of emotional crisis. In addition to the main hotline number listed above, there are several other numbers to call depending on your needs: [place]i Language: Deaf and Hard of [phone] Veterans: Disaster Distress: Anyone can also use their online chat feature on their website. National Suicide Prevention Lifeline [facility] Helpline: The [facility] Helpline is available to anyone in [place] who is need of emotional support. Anyone can call or text the helpline to receive help from specially trained volunteers. [place] high school and college students can also get online support through the IMHear_ program. For high school students, volunteers ages 15-18 are available Monday- from 6-9PM. For college students, IMHear_ is available Monday-Monday from 5-9PM. The [place] [employer] - The [place] Project is a 29/05 crisis intervention and suicide prevention hotline for LGBTQ youth. Youth can also text [place] to for support, or use the online chat feature on the [employer] Project's website. [employer] is available Monday-Monday between 3-10PM. [employer] is available seven days a week between 3-10PM. SafeLink: SafeLink is for anyone who is being affected by domestic violence or dating violence. Volunteers at SafeLink speak [place] and [place], and [employer] also has a service that can provide translation in more than 130 languages. TTY:
[2025-03-25 08:33] VITALS: BP 132/70; PULSE 72; RESP 12; TEMP 36.3; O2SAT 96; BMI 32.9
== END 2025-03-25 09:21 | disposition home or self-care (01) ==
LOC: HO.HMCFM 08:17
PROVIDERS: PCP Nurse Practitioner Family; Visit Provider Nurse Practitioner Family
DX: E11.8 Type 2 diabetes mellitus with unspecified complications (principal); I25.10 Atherosclerotic heart disease of native coronary artery without angina pectoris; Z95.5 Presence of coronary angioplasty implant and graft; F43.20 Adjustment disorder, unspecified; M79.661 Pain in right lower leg; M79.662 Pain in left lower leg; N39.45 Continuous leakage; E53.8 Deficiency of other specified B group vitamins; R79.89 Other specified abnormal findings of blood chemistry; K76.0 Fatty (change of) liver, not elsewhere classified; I15.2 Hypertension secondary to endocrine disorders

== ENCOUNTER → 2025-03-25 08:17 | Outpatient (BNVA) | payer BC, SELFPAY | PROVIDERS: PCP Nurse Practitioner Family; Visit Provider Nurse Practitioner Family | DX: Z13.89 Encounter for screening for other disorder (principal) ==

== ENCOUNTER 2025-03-25 09:38 | Outpatient (REF) | payer BC, SELFPAY ==
--- OUTSIDE RECORDS SUMMARY | 2025-03-25 10:42 | XMS_ITS | Clinical Summary ---
Author Organization [facility] Address [address] [place] [address] Care Team Providers Care Cleaner And Preparer Name Role Phone Ngoc Ordonez APRN Primary Care Provider + Beau Hays MD Unavailable Allergies Active Allergy Reactions Criticality Noted Date [...] Description 01/07/2025 10:40 AM EST Office Visit [facility] [address] [id number] Beau Hays MD Hospital discharge follow-up (Primary Dx); Chest pain, unspecified type Discharge Disposition: Home or Self Care 01/07/2025 Orders Only [facility] [address] [place] [address] Yaima De Paz APRN Chest pain, unspecified type (Primary Dx); NSTEMI (non-ST elevated myocardial infarction) (HCC) 01/07/2025 Travel from Last 3 Months Social History Tobacco Use Types Packs/Day Years Used Date Smoking Tobacco: Never Assessed [facility] Utilities Answer Date Recorded In the [...] any time in the past [address] [facility], were you homeless or living [...] this topic Medical Devices Implanted Type Area Drawer Hardware Worker Device Identifier Shelf Expiration Date Model / Serial / Lot [id number] Coronary Stent System Synergy Xd Mr 2.25mm 16mm Delivery s - [id number] Implanted:Qty : 1 on 12/24/2024 by Santosh Brady MD at [facility] Stent N/A: Coronary [employer] [id number] 02/20/2026 [id number] / / [id number] Procedures Procedure Name Priority Date/Time Associated Diagnosis [...] 12 lead (01/07/2025 10:30 AM EST) Pathologist [facility] Ventricular rate 71 BPM EKG [facility] Atrial rate 71 BPM EKG [facility] P-R interval 186 ms EKG [facility] QRS duration 90 ms EKG [facility] Q-T interval 362 ms EKG [facility] QTC calculation (Bazett) 393 ms EKG [facility] P axis 43 degrees EKG [facility] R axis 10 degrees EKG [facility] T axis 46 degrees EKG [facility] 01/07/2025 10:3 0 AM EST Narrative EKG [facility] - 01/07/2025 2:06 PM EST Normal sinus rhythm Possible Anterior infarct (cited on or before 24-Dec-2024) Abnormal ECG When compared with ECG of 24-Dec-2024 16:09, QT has shortened Confirmed by MD Isbell Anja ([id number]) on 01/07/2025 2:06:51 PM Procedure Note Gem Isbell MD - 01/07/2025 Normal sinus rhythm Possible Anterior infarct (cited on or before 24-Dec-2024) Abnormal ECG When compared with ECG of 24-Dec-2024 16:09, QT has shortened Confirmed by MD Isbell Anja ([id number]) on 01/07/2025 2:06:51 PM us Gem Isbell MD ECG ORDERABLES Final Result Performing Organization Address [facility] [[email or web address]] Co de Phone Number EKG [facility] * (ABNORMAL) Hemoglobin A1c with Estimated Average Glucose (Add-On) (12/25/2024 8:00 AM EST) Hemoglobin A1C 6.5(H) <5.7 % 12/25/2024 5:38 PM [facility] Comment: A1c% ? Interpretation 5.7 - 6.0 ?Increase risk of diabetes 6.1 - 6.4 ?Higher risk of diabetes > or = 6.5 ?? Consistent with diabetes Diabetes Care, 33(Supp 1):S1-S61, 2010 Estimated Average Glucose 140 mg/dL 12/25/2024 5:38 PM [facility] Blood Blood specimen / Unknown 12/25/2024 8:00 AM EST 12/25/2024 8:12 AM EST us Keenan Arreguin MD LAB BLOOD ORDERABLES Final Resul t Performing Organization Address [facility] [[email or web address]] Co de Phone Number [address] [address], [address] [address] * (ABNORMAL) LIPID PANEL (12/25/2024 5:33 AM EST) Cholesterol, Total 168 <200 mg/dL 2024 8:24 AM EST [facility] Triglycerides 135 <150 mg/dL 12/25/2024 8:24 AM EST [facility] Cholesterol, HDL 43(L) >60 mg/dL 12/25/19 8:24 AM EST [facility] Estimated LDL 98 <130 mg/dL 12/25/2024 8:24 AM EST [facility] Comment: NCEP Guidelines: ?< 100 mg/dL ??Optimal 100 - 129 mg/dL ??Near Optimal/Above Optimal 130 - 159 mg/dL ??Borderline High 160 - 189 mg/dL ??High ??>/= 190 mg/dL ??Very High Cholesterol/HDL Ratio 3.9 0.0 - 5.0 Ratio 12/25/2024 8:24 AM EST [facility] Comment: Relative Risk ? Ratio - Male ? Ratio - Female ?0.5 ?3.4 ?3.3 ?1.0 ?5.0 ?4.4 ?2.0 ?9.6 ?7.1 ?3.0 ? 23.4 ? 11.0 Plasma/Serum 12/25/2024 5:33 AM EST 12/25/2024 6:08 AM EST us Kristina PETERS LAB BLOOD ORDERABL ES Final Result [facility] [address] [place] [address], * (ABNORMAL) Comprehensive Metabolic Panel (12/25/2024 5:33 AM EST) Glucose 131(H) 74 - 106 mg/dL 12/25/2024 6:35 AM EST [facility] Comment:Fasting: <100 mg/dL, Non-Fasting: <200 mg/dL (ADA 2005) Blood Urea Nitrogen (BUN) 10 9 - 23 mg/dL 12/25/2024 6:35 AM [facility] Creatinine 0.9 0.6 - 1.0 mg/dL 12/25/2024 6:35 AM [facility] eGFR 69 >59 12/25/2024 6:35 AM [facility] Comment:CKD-EPI (2020) in mL /min/1.73 sq meters. Sodium 139 136 - 145 mmol/L 12/25/2024 6:35 AM [facility] Potassium 4.4 3.4 - 4.5 mmol/L 12/25/2024 6:35 AM [facility] Chloride 107 98 - 107 mmol/L 12/25/2024 6:35 AM [facility] CO2 24 20 - 31 mmol/L 12/25/2024 6:35 AM [facility] Calcium 10.1 8.7 - 10.5 mg/dL 12/25/2024 6:35 AM [facility] Alkaline Phosphatase 125(H) 32 - 122 U/L 12/25/2024 6:35 AM [facility] Aspartate Aminotrans (AST) 79(H) <34 U/L 12/25/2024 6:35 AM [facility] Alanine Aminotrans (ALT) 98(H) 7 - 35 U/L 12/25/2024 6:35 AM [facility] Bilirubin, Total 0.6 0.3 - 1.2 mg/dL 12/25/2024 6:35 AM [facility] Protein, Total 7.5 5.7 - 8.2 g/dL 12/25/2024 6:35 AM [facility] Albumin 4.6 3.4 - 4.8 g/dL 12/25/2024 6:35 AM [facility] BUN/Creatinine Ratio 11 10.0 - 25.0 Ratio 12/25/2024 6:35 AM [facility] Globulin 2.9 1.5 - 3.9 g/dL 12/25/2024 6:35 AM EST [facility] Albumin/Globulin Ratio 1.6 1.5 - 2.5 Ratio 12/25/2024 6:35 AM EST [facility] Anion Gap 8 5 - 15 12/25/2024 6:35 AM EST [facility] Blood (Plasma/Serum) 12/25/2024 5:33 AM EST 12/25/2024 6:08 AM EST us Kristina PETERS LAB BLOOD ORDERABL ES Final Result [facility] [address] [place] [address], from Last 3 Months or Most Recently Relevant to Health Maintenance Insurance - O Advance Directives * Full Code (Latest Code Status on File) Date Activated Date Inactivated Comments 12/24/2024 1:32 PM Care Teams Cleaner And Preparer Relationship Specialty Start Date End Date Ngoc Ordonez APRN [address] [place] [address] PCP - General Family Medicine 12/24/24 Beau Hays MD [address] [place] [address] Primary Food Products Tester Cardiovascular Disease 01/07/25
[2025-03-25 12:14] LABS: Estimated Average Glucose 120 mg/dL; Hemoglobin A1C 151.7657 umol/L; Hemoglobin A1c % 5.8 % (<6.0); Total Hemoglobin (HGBA1C) 3755.1934 umol/L
[2025-03-25 12:27] LABS: Alanine Aminotransferase 48 U/L (0-31); Albumin Level 4.5 g/dL (3.5-5.0); Alkaline Phosphatase 139 U/L (39-117); Anion Gap 13 (12-20); Aspartate Amino Transferase 48 U/L (5-31); Bilirubin Total 0.5 mg/dL (0.0-1.0); Blood Urea Nitrogen 26 mg/dL (9-16); Calcium 10.5 mg/dL (8.4-10.2); Carbon Dioxide 26 mmol/L (22-29); Chloride 104 mmol/L (96-108); Cholesterol 92 mg/dL (<200); Estimated Glomerular Filt Rate > 60; Glucose Random 113 mg/dL (60-115); HDL Cholesterol 40 mg/dL (>40); LDL Cholesterol Calculated 34 mg/dL (<100); Potassium 4.5 mmol/L (3.3-5.1); Sodium 138 mmol/L (135-145); Total Protein 7.5 g/dL (6.5-8.0); Triglycerides 91 mg/dL (<150)
[2025-03-25 12:31] LABS: Parathyroid Hormone Intact 49.4 pg/mL (8.7-77.1)
[2025-03-25 12:32] LABS: Vitamin D 25-OH Total 74.4 ng/mL (>30)
== END 2025-03-25 09:39 | disposition home or self-care (01) ==
LOC: HO.WFDLDS 09:38
PROVIDERS: Visit Provider Nurse Practitioner Family
DX: E11.8 Type 2 diabetes mellitus with unspecified complications (principal); I15.2 Hypertension secondary to endocrine disorders; E78.5 Hyperlipidemia, unspecified; I25.10 Atherosclerotic heart disease of native coronary artery without angina pectoris; K21.9 Gastro-esophageal reflux disease without esophagitis; E53.8 Deficiency of other specified B group vitamins; L25.9 Unspecified contact dermatitis, unspecified cause; F32.A Depression, unspecified; F43.20 Adjustment disorder, unspecified; M79.661 Pain in right lower leg; M79.662 Pain in left lower leg; N39.45 Continuous leakage; R79.89 Other specified abnormal findings of blood chemistry; K76.0 Fatty (change of) liver, not elsewhere classified; Z79.899 Other long term (current) drug therapy; Z95.5 Presence of coronary angioplasty implant and graft
CPT/HCPCS: 36415; 80053; 80061; 82306; 83036; 83970; 99212

== ENCOUNTER 2025-04-15 07:53 | Outpatient (REF) | payer MEDICARE, SELFPAY ==
--- NOTE | ~2025-04-15 | US_ITS ---
EXAMINATION: US ABDOMEN COMPLETE WITH LIVER ELASTOGRAPHY HISTORY: R79.89 - Other specified abnormal findings of blood chemistry TECHNIQUE: Real-time grayscale ultrasound imaging of the abdomen was performed and images were reviewed. COMPARISON: There are no prior studies available for comparison. FINDINGS: Liver: The right lobe of the liver measures 14.3 cm in size. The left lobe of the liver measures 13.2 cm in size. The liver demonstrates increased echotexture, consistent with steatosis. No focal mass or intrahepatic biliary ductal dilatation is identified. There is a 3 mm calcification in the left lobe. There is normal hepatopedal flow in the portal vein. Ultrasound elastography of the liver was performed with 10 separate measurements of the liver parenchyma with the patient in the supine position. Measurements were obtained approximately 2 cm below Janie's capsule and perpendicular to the capsule. The median shear wave velocity is 1.61 m/s. The interquartile range/median (IQR/median) is 0.20. Gallbladder and biliary tree: The gallbladder is surgically absent. The common bile duct is normal in caliber measuring 7 mm. Kidneys: The right kidney measures 9.9 cm in length. The left kidney measures 8.9 cm in length. There is a 3 mm cortical calcification at the lower pole of the left kidney. The kidneys are otherwise unremarkable, without evidence of masses, hydronephrosis, or calyceal calculi. Pancreas: The pancreatic head, neck, and body are unremarkable. The pancreatic tail is obscured by bowel gas. Spleen: The spleen is normal in size and contour, measuring 8.1 cm in length. Abdominal aorta and inferior vena cava: The visualized portions of the abdominal aorta and inferior vena cava are normal in caliber. There is no free fluid in the abdomen. US/US abdomen comp w elastography IMPRESSION: Hepatic steatosis. The median shear wave velocity in the liver is 1.61 m/s, corresponding to a median liver stiffness of 7.8 kPa. The IQR/median value is 0.20. This is indicative of a quality data set. Findings are indicative of a low elastography value which rules out advanced chronic liver disease in asymptomatic patients. REFERENCE: Society of Radiologists in Ultrasound Liver Stiffness Thresholds (2020): LIVER STIFFNESS THRESHOLDS: *Shear wave velocity less than 1.3 m/s (Liver Stiffness equal or less than 5 kPa): High probability of being normal. *Shear wave velocity less than 1.7 m/s (Liver Stiffness less than 9 kPa): In the absence of other known clinical signs, rules out compensated advanced chronic liver disease. *Shear wave velocity between 1.7-2.1 m/s (Liver Stiffness 9-13 kPa): Suggestive of compensated advanced chronic liver disease but need further test for confirmation. *Shear wave velocity between 2.1-2.4 m/s (Liver Stiffness 13-17 kPa): Rules in compensated advanced chronic liver disease. *Shear wave velocity greater than 2.4 m/s (Liver Stiffness over 17 kPa): Suggestive of clinically significant portal hypertension. QUALITY OF DATA SET: *IQR/Median value equal or less than 0.30 implies a quality data set. *IQR/Median value over 0.30 implies a poor quality data set. SIGNIFICANT CHANGE FROM PRIOR EXAM: Significant change if liver stiffness measurement is 10% or greater from prior exam. OTHER CONSIDERATIONS: The stage of liver fibrosis may be overestimated in the setting of acute hepatitis, liver inflammation, elevated liver function tests, hepatic vascular congestion, obstructive cholestasis, non-fasting state, and infiltrative diseases such as amyloidosis and lymphoma. In some patients with NAFLD, the liver stiffness thresholds for compensated advanced chronic liver disease may be lower. In causes other than viral hepatitis and NAFLD, liver stiffness thresholds are not well established. Electronically signed by: Bashir Weiner MD 04/15/2025 08:38 AM EDT
== END 2025-04-15 07:54 | disposition home or self-care (01) ==
LOC: HO.US 07:53
PROVIDERS: PCP Nurse Practitioner Family; Visit Provider Nurse Practitioner Family
DX: K76.0 Fatty (change of) liver, not elsewhere classified (principal); R79.89 Other specified abnormal findings of blood chemistry
CPT/HCPCS: 76700; 76981; 99202

== ENCOUNTER → 2025-04-15 07:55 | Outpatient (BNV) | payer MEDICARE, SELFPAY | PROVIDERS: PCP Nurse Practitioner Family; Visit Provider Radiology Diagnostic Radiology | DX: K76.0 Fatty (change of) liver, not elsewhere classified (principal) | CPT/HCPCS: 76700; 76981 ==

== ENCOUNTER 2025-04-15 09:27 | Outpatient (AMB) | payer MEDICARE, SELFPAY ==
[2025-04-15 09:35] VITALS: BMI 32.8
--- NOTE | 2025-04-15 09:35 | A.OFFVIS_ITS ---
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 Pt states when driving for a while she gets swelling all the way up her leg. Also states numbness in her legs and wakes up in the night. Started a few months ago. 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 She states that during a long drive this past Monday, her legs swelled significantly but went back down to normal size within 24h after the drive completed. She does state that her legs ache and feel heavy intermittently, mostly with walking/activity. Complaints include pain, swelling of lower extremities, cramping, fatigue, and heaviness of the lower extremities. It has been affecting their daily activities including walking and physical activity. It is noted in both legs. She states she has had pain in her feet for awhile now, due to high arches. She denies any warm/cool sensations as well as numbness and tingling. She is a diabetic, well controlled on Metformin and Farxiga; her last A1C appx 1m ago was 5.8%. She has never smoked. Patient denies any previous venous surgery or injections. Patient denies any history of DVT/ PE. Patient denies any history of phlebitis. Trial of compression includes - elevation with some relief They now present for vascular evaluation regarding their varicose veins.j [facility] Medical History Non-alcoholic fatty liver disease Exhaustion Memory change Anxiety Hypertension Diabetes Abnormal colonoscopy Surgical History S/P cardiac cath History of colonoscopy (~2014) H/O eye surgery H/O cervical spine surgery History of back surgery H/O elbow surgery H/O wrist surgery H/O section Family History Sister Mental health disorder Substance abuse Cardiovascular disease Hypertension Thyroid disease Advancing dementia Brother Cancer Cardiovascular disease Hypertension Paternal Grandfather Cancer Father Cardiovascular disease Hypertension Mother Hypertension Daughter Thyroid disease Social History Household Members: Spouse Both parents involved: No Caregiver staying overnight: No Housing: House Are you a primary critical care nurse specialist to a significant other at home: No Do you presently have visiting nurse or other home services: No 75 years or older and lives alone: No Alcohol intake: former Patient Tobacco Use Status: Never used Tobacco e-Cigarette/Vaping Use: Never Used Second Hand Smoke Exposure: No service: No Current occupational status: retired Cognitive needs: No Hearing needs: No Vision needs: No Review of Systems Const Reports as per HPI and Denies weakness ENT Reports Normal hearing present and Denies dizziness Card Reports as per HPI, Denies chest pain, Denies chest pain at rest, Denies chest pain with activity, Denies dyspnea and Denies dyspnea on exertion Resp Reports as per HPI, Denies cough, Denies dyspnea and Denies dyspnea on exertion GI Reports as per HPI, Denies abdominal pain, Denies nausea and Denies vomiting Musc Denies numbness Skin/Breast Reports as per HPI, Denies erythema and Denies wounds Neuro Reports Normal hearing present, Denies dizziness, Denies numbness, Denies Sensory deficit (Neuro) and Denies weakness Psych Reports no additional complaints Endo Reports no additional complaints Physical Exam Vital Signs: BMI result Body Mass Index 32.8 Const General: healthy appearing and no acute distress Orientation/consciousness: patient oriented x3 HEENT Head: Yes normal to inspection Ears: hearing grossly normal bilaterally Mouth: Normal oral and palatal mucosa present Resp Effort & Inspection: normal respiratory effort and able to speak in complete sentences Auscultation: clear to auscultation bilaterally Cardio Jugular venous distension: no JVD Rate: regular rate Rhythm: regular rhythm Heart sounds: S1 normal heart sound present and S2 normal heart sound present Bruits: no abdominal aortic bruits, no carotid bruits, no femoral bruits and no renal bruits Peripheral pulses: Peripheral pulses 2+ throughout GI Inspection: Yes normal to inspection Palpation (GI): No Abdominal aortic bruit present Skin General skin exam: no rashes or lesions noted Wounds: no wounds Hair: normal Neuro General: patient oriented x3 Cranial nerves: Yes Normal hearing present Cognition (Neuro): normal cognition Gait exam (Neuro): Normal gait present Motor exam (neuro): 5/5 motor strength present throughout Sensory Exam: No Sensory deficit (Neuro) Extrem Other: Bilateral lower extremities: +1 edema noted. Palpable DP pulses. No discoloration noted. No wounds noted. CEAP: C - 3 E - primary A - superficial P - reflux General: Yes normal to inspection, Yes full ROM, Yes capillary refill normal and Yes normal gait Assessment & Plan Assessment & Plan (1) Varicose veins of both lower extremities with inflammation: Code(s): I83.11 - Varicose veins of right lower extremity with inflammation; I83.12 - Varicose veins of left lower extremity with inflammation Category: Medical Plan: Heidi is presenting today on a referral from her PCP for concerns of bilateral lower extremity swelling and pain/discomfort. In short, the patient has evidence of venous insufficiency. I have discussed the pathophysiology with the patient. In addition I have provided informational material regarding venous disease to the patient. We have discussed conservative measures including compression, elevation, and exercise. I have taken the liberty of ordering venous insufficiency testing with the patient. They will follow up with me after testing. The patient had an opportunity to ask questions regarding the treatment plan. All questions were answered. Imaging studies, laboratory studies and physical exam results were discussed and reviewed in detail. No major barriers to understanding were identified. The patient expressed understanding and agreement with the above treatment plan. The patient is aware they should contact our office by phone for worsening of the current condition or the appe arance of new symptoms. Thank you for allowing me to participate in the vascular care of this patient. If you have any questions or concerns regarding the treatment for the above condition please do not hesitate to contact me. The office telephone contact is [phone]. This note is constructed using voice recognition software. While every effort has been made to ensure accuracy, plug stitcher errors may have been included. Thank you for allowing me to participate in the care of your patient. Yours sincerely, FRAN Altman Orders: Orders US venous duplex LE BI 1 Week I83.11 - Varicose veins of right lower extremity with inflammation, I83.12 - Varicose veins of left lower extremity with inflammation Coding Level of Care Code New Pt Level 4 (65613) Diagnoses Varicose veins of both lower extremities with inflammation I83.11; I83.12
== END 2025-04-15 10:29 | disposition home or self-care (01) ==
LOC: HO.HVS 09:28
PROVIDERS: PCP Nurse Practitioner Family; Visit Provider Physician Assistant Surgical
DX: I83.11 Varicose veins of right lower extremity with inflammation (principal); I83.12 Varicose veins of left lower extremity with inflammation
CPT/HCPCS: 99204

== ENCOUNTER 2025-04-16 11:04 | Outpatient (AMB) | payer MEDICARE, SELFPAY ==
--- NOTE | 2025-04-16 11:20 | A.OFFVIS_ITS ---
VS Expanded 04/16/25 11:26 Height 5 ft Weight 165 lb 2.02 oz BMI 32.2 Intake Visit Reasons: Atherosclerotic heart disease of [place] coronary Allergies lisinopril Allergy (Severe, Verified 04/15/25 09:38) Anaphylaxis Penicillins Allergy (Severe, Verified 04/15/25 09:38) Unknown Sulfa (Sulfonamide Antibiotics) Allergy (Severe, Verified 04/15/25 09:38) Unknown adhesive Allergy (Intermediate, Verified 04/15/25 09:38) red patches gentamicin Allergy (Unknown, Verified 04/15/25 09:38) Itching Nutrition Presentation Details: Pt presents for MNT f/u for obesity with CVD Pt reports working on making gradual modifications in diet without feeling deprived food frequency fruits : 2 a day fish : 0-2 x/wk starches > 30 dairy: reducing on portions (cheese/ice cream as ex) fluids: water, low sugar beverages, tea Reports reading food labels Participating in cardiac rehab 2 days a week and also at the [facility] 2 times a week BS Monitoring Most Recent Diabetes Results: Cholesterol, (<200) 92 mg/dL 03/25/25 HDL Cholesterol, (>40) 40 mg/dL L 03/25/25 Triglycerides, (<150) 91 mg/dL 03/25/25 Creatinine, (0.5-1.4) 0.89 mg/dL 03/25/25 BUN, (9-16) 26 mg/dL H 03/25/25 Sodium, (135-145) 138 mmol/L 03/25/25 Potassium, (3.3-5.1) 4.5 mmol/L 03/25/25 Chloride, (96-108) 104 mmol/L 03/25/25 Carbon Dioxide, (22-29) 26 mmol/L 03/25/25 Calcium, (8.4-10.2) 10.5 mg/dL H Δ 03/25/25 AST, (5-31) 48 U/L H 03/25/25 ALT, (0-31) 48 U/L H 03/25/25 Total Protein, (6.5-8.0) 7.5 g/dL 03/25/25 Albumin, (3.5-5.0) 4.5 g/dL 03/25/25 [facility] Medical History Non-alcoholic fatty liver disease Exhaustion Memory change Anxiety Hypertension Diabetes Abnormal colonoscopy Surgical History S/P cardiac cath History of colonoscopy (~2014) H/O eye surgery H/O cervical spine surgery History of back surgery H/O elbow surgery H/O wrist surgery H/O section Family History Sister Mental health disorder Substance abuse Cardiovascular disease Hypertension Thyroid disease Advancing dementia Brother Cancer Cardiovascular disease Hypertension Paternal Grandfather Cancer Father Cardiovascular disease Hypertension Mother Hypertension Daughter Thyroid disease Social History Household Members: Spouse Housing: House Are you a primary director of medicare to a significant other at home: No Do you presently have visiting nurse or other home services: No Alcohol intake: former Patient Tobacco Use Status: Never used Tobacco e-Cigarette/Vaping Use: Never Used Second Hand Smoke Exposure: No service: No Current occupational status: retired Cognitive needs: No Hearing needs: No Vision needs: No Assessment & Plan Assessment & Plan (1) Obesity (BMI 30.0-34.9): Code(s): E66.811 - Obesity, class 1 Category: Medical Plan: Wt: 77 Kg ( 03/30), 75 kg (04/30) Est kcal needs as per MSJ: 1700 (40% carb, 30% protein/fat) Est fluid needs as per 25-30 ml/d: 2300 Est prot per day as per 1 g/kg bw: 77 Recommend fiber intake : 8-10 g per day and gradually increase to 25-28 g per day for women and 35-38 g for men or as tolerated Recommend sodium intake per day : less than 2000 mg Educated patient on: ( R = reviewed V = verbalizes understanding N/R = needs review N/A = not applicable * Food sources of carbohydrate, adequate serving sizes and its role in various health conditions: R V N/R * Differences between complex carbohydrates a simple carbohydrates, role of fiber in diet: R * Lean protein sources of foods: R * Differences between types of fats and role in diet (mono on saturated fat fatty acids, saturated fatty acids, trans fats): R * Food sources of sodium in salt and healthy modifications for heart health in kidney health: R V R/V * Vitamins and minerals: R V N/R * Healthy plate method concept: R V N/R * Physical activity: Benefits a precaution: R V * Patient Instructions: Continue working on choosing low sodium food options try unsalted nuts/seeds Read food labels choosing lower sodium food options (less than 200 mg for snack and less than 600 mg for a meal or less than 2000 mg day unless otherwise specified by your doctor Coding Level of Care Code Nutr Indiv Subseq (90013) Diagnoses Obesity (BMI 30.0-34.9) E66.811 Time Spent (min) 30
[2025-04-16 11:26] VITALS: BMI 32.2
--- OUTSIDE RECORDS SUMMARY | 2025-04-16 12:41 | XMS_ITS | Clinical Summary ---
Author Organization [facility] Address [address] [place] [address] Care Team Providers Care Production Aide Name Role Phone Ngoc Ordonez APRN Primary Care Provider + Beau Hays MD Unavailable [phone] Allergies Active Allergy Reactions Criticality Noted Date [...] by mouth daily. 30 tablet 2 12/26/2024 Active atorvastatin (LIPITOR) 40 MG tabletIndication s:NSTEMI (non-ST elevated myocardial infarction) (HCC) Take 1 tablet (40 mg total) by mouth nightly. 90 tablet 3 12/25/2024 12/20/19 26 Active clopidogrel (PLAVIX) 75 MG tabletIndication s:NSTEMI (non-ST elevated myocardial infarction) (HCC) Take 1 tablet (75 mg total) by mouth daily. 30 tablet 2 12/26/2024 Active metoPROLOL SUCCINATE (TOPROL-XL) 25 MG 24 [...] 12/24/2024 Mixed hyperlipidemia 12/24/2024 Fatty liver 12/24/2024 Social History Tobacco Use Types Packs/Day Years Used Date Smoking Tobacco: Never Assessed [facility] Utilities Answer Date Recorded In the past 12 months has [employer], [employer], oil, or water [employer] threatened to shut off services in your [...] in a penitentiary (including now)? No 12/25/2024 Comments Unknown Sex [...] this topic Medical Devices Implanted Type Area Marine Habitat Resource Specialist Device Identifier Shelf Expiration Date Model / Serial / Lot [id number] Coronary Stent System Synergy Xd Mr 2.25mm 16mm Delivery Sys - [id number] Implanted:Qty : 1 on 12/24/2024 by Santosh Brady MD at [facility] Stent N/A: Coronary [employer] [id number] 02/20/2026 [id number] / / [id number] Procedures Procedure Name Priority Date/Time Associated Diagnosis Comments HEMOGLOBIN A1C WITH ESTIMATED AVERAGE GLUCOSE Routine 12/25/2024 8:00 AM EST LIPID PANEL Routine 12/25/2024 5:33 AM EST COMPREHENSIVE METABOLIC PANEL Routine 12/25/2024 5:33 AM EST from Last 3 Months or Most Recently Relevant to Health Maintenance Results * (ABNORMAL) Hemoglobin A1c with Estimated Average Glucose (Add-On) (12/25/2024 8:00 AM EST) Hemoglobin A1C 6.5(H) <5.7 % 12/25/2024 5:38 PM [facility] Comment: A1c% ? Interpretation 5.7 - 6.0 ?Increase risk of diabetes 6.1 - 6.4 ?Higher risk of diabetes > or = 6.5 ?? Consistent with diabetes Diabetes Care, 33(Supp 1):S1-S61, 2010 Estimated Average Glucose 140 mg/dL 12/25/2024 5:38 PM [facility] Blood Blood specimen / Unknown 12/25/2024 8:00 AM EST 12/25/2024 8:12 AM EST us Keenan Arreguin MD LAB BLOOD ORDERABLES Final Resul t [address] [address], [address] [address] * (ABNORMAL) LIPID PANEL (12/25/2024 5:33 AM EST) Cholesterol, Total 168 <200 mg/dL 2024 8:24 AM EST [facility] Triglycerides 135 <150 mg/dL 12/25/2024 8:24 AM EST [facility] Cholesterol, HDL 43(L) >60 mg/dL 12/25/19 8:24 AM EST [facility] Estimated LDL 98 <130 mg/dL 12/25/2024 8:24 AM EST [facility] Comment: NCEP Guidelines: ?< 100 mg/dL ??Optimal 100 - 129 mg/dL ??Near Optimal/Above Optimal 130 - 159 mg/dL ??Borderline High 160 - 189 mg/dL ??High ??>/= 190 mg/dL ??Very High Cholesterol/HDL Ratio 3.9 0.0 - 5.0 Ratio 12/25/2024 8:24 AM EST [facility] Comment: Relative Risk ? Ratio - Male ? Ratio - Female ?0.5 ?3.4 ?3.3 ?1.0 ?5.0 ?4.4 ?2.0 ?9.6 ?7.1 ?3.0 ? 23.4 ? 11.0 Plasma/Serum 12/25/2024 5:33 AM EST 12/25/2024 6:08 AM EST us Kristina PETERS LAB BLOOD ORDERABL ES Final Result [facility] [address] [place] [address], * (ABNORMAL) Comprehensive Metabolic Panel (12/25/2024 5:33 AM EST) Glucose 131(H) 74 - 106 mg/dL 12/25/2024 6:35 AM EST [facility] Comment:Fasting: <100 mg/dL, Non-Fasting: <200 mg/dL (ADA 2005) Blood Urea Nitrogen (BUN) 10 9 - 23 mg/dL 12/25/2024 6:35 AM EST [facility] Creatinine 0.9 0.6 - 1.0 mg/dL 12/25/2024 6:35 AM EST [facility] eGFR 69 >59 12/25/2024 6:35 AM EST [facility] Comment:CKD-EPI (2020) in mL /min/1.73 sq meters. Sodium 139 136 - 145 mmol/L 12/25/2024 6:35 AM [facility] Potassium 4.4 3.4 - 4.5 mmol/L 12/25/2024 6:35 AM [facility] Chloride 107 98 - 107 mmol/L 12/25/2024 6:35 AM [facility] CO2 24 20 - 31 mmol/L 12/25/2024 6:35 AM [facility] Calcium 10.1 8.7 - 10.5 mg/dL 12/25/2024 6:35 AM [facility] Alkaline Phosphatase 125(H) 32 - 122 U/L 12/25/2024 6:35 AM [facility] Aspartate Aminotrans (AST) 79(H) <34 U/L 12/25/2024 6:35 AM [facility] Alanine Aminotrans (ALT) 98(H) 7 - 35 U/L 12/25/2024 6:35 AM [facility] Bilirubin, Total 0.6 0.3 - 1.2 mg/dL 12/25/2024 6:35 AM [facility] Protein, Total 7.5 5.7 - 8.2 g/dL 12/25/2024 6:35 AM [facility] Albumin 4.6 3.4 - 4.8 g/dL 12/25/2024 6:35 AM [facility] BUN/Creatinine Ratio 11 10.0 - 25.0 Ratio 12/25/2024 6:35 AM [facility] Globulin 2.9 1.5 - 3.9 g/dL 12/25/2024 6:35 AM [facility] Albumin/Globulin Ratio 1.6 1.5 - 2.5 Ratio 12/25/2024 6:35 AM [facility] Anion Gap 8 5 - 15 12/25/2024 6:[address] [facility] Blood (Plasma/Serum) 12/25/2024 5:33 AM EST 12/25/2024 6:08 AM EST us Kristina PETERS LAB BLOOD ORDERABL ES Final Result [facility] [address] [place] [address], from Last 3 Months or Most Recently Relevant to Health Maintenance [place] [address] [place] [address] OUT STATE - O Advance Directives * Full Code (Latest Code Status on File) Date Activated Date Inactivated Comments 12/24/2024 1:32 PM Care Teams Production Aide Relationship Specialty Start Date End Date Ngoc Ordonez APRN [address] [place] [address] PCP - General Family Medicine 12/24/24 Beau Hays MD [address] [place] [address] Primary Electrical Supervisor Cardiovascular Disease 01/07/25
== END 2025-04-16 11:48 | disposition home or self-care (01) ==
LOC: HO.ENCR 11:05
PROVIDERS: PCP Nurse Practitioner Family; Visit Provider Dietitian, Registered
DX: E66.811 Obesity, class 1 (principal)

== ENCOUNTER → 2025-04-16 11:04 | Outpatient (BNVA) | payer MEDICARE, SELFPAY | PROVIDERS: PCP Nurse Practitioner Family; Visit Provider Dietitian, Registered | DX: E66.811 Obesity, class 1 (principal); I25.10 Atherosclerotic heart disease of native coronary artery without angina pectoris; I10 Essential (primary) hypertension; Z68.32 Body mass index [BMI] 32.0-32.9, adult; Z71.3 Dietary counseling and surveillance | CPT/HCPCS: 97803 ==

== ENCOUNTER 2025-04-30 07:36 | Outpatient (AMB) | payer MEDICARE, SELFPAY ==
--- OUTSIDE RECORDS SUMMARY | 2025-04-30 07:38 | XMS_ITS | Clinical Summary ---
Author Organization [facility] Address [address] [place] [address] Care Team Providers Care Brush Washer Name Role Phone Ngoc Ordonez APRN Primary Care Provider + Beau Hays MD Unavailable [phone] Allergies Active Allergy Reactions Criticality Noted Date [...] Years Used Date Smoking Tobacco: Never Assessed [facility] Utilities Answer Date Recorded In the past 12 months has [employer], [employer], oil, or water [email or web address] threatened to shut off services in your [...] any time in the past 12 m [facility], were you homeless or living in a skilled nursing (including now)? No 12/25/2024 Comments Unknown Sex [...] 71 01/07/2025 10:27 AM EST Temperature 36.8 C (98.3 F) 12/25/2024 8:00 AM EST Respiratory Rate 18 12/25/2024 8:00 AM EST [...] this topic Medical Devices Implanted Type Area Lipcoat Sprayer Device Identifier Shelf Expiration Date Model / Serial / Lot [id number] Coronary Stent System Synergy Xd Mr 2.25mm 16mm Delivery s - [id number] Implanted:Qty : 1 on 12/24/2024 by Santosh Brady MD at [facility] Stent N/A: Coronary [employer] [id number] 02/20/2026 [id number] / / [id number] Procedures Procedure Name Priority Date/Time Associated Diagnosis [...] A1C 6.5(H) <5.7 % 12/25/2024 5:38 PM [facility] Comment: A1c% Interpretation 5.7 - 6.0 Increase risk of diabetes 6.1 - 6.4 Higher risk of diabetes > or = 6.5 Consistent with diabetes Diabetes Care, 33(Supp 1):S1-S61, 2010 Estimated Average Glucose 140 mg/dL 12/25/2024 5:38 PM [facility] Blood Blood specimen / Unknown 12/25/2024 8:00 AM EST 12/25/2024 8:12 AM EST Keenan Arreguin MD LAB BLOOD ORDERABLES [place] [address], [address] [address] * (ABNORMAL) LIPID PANEL (12/25/2024 5:33 AM EST) Cholesterol, Total 168 <200 mg/dL 2024 8:24 AM EST [facility] Triglycerides 135 <150 mg/dL 12/25/2024 8:24 AM EST [facility] Cholesterol, HDL 43(L) >60 mg/dL 12/25/19 8:24 AM EST [facility] Estimated LDL 98 <130 mg/dL 12/25/2024 8:24 AM EST [facility] Comment: NCEP Guidelines: < 100 mg/dL Optimal 100 - 129 mg/dL Near Optimal/Above Optimal 130 - 159 mg/dL Borderline High 160 - 189 mg/dL High >/= 190 mg/dL Very High Cholesterol/HDL Ratio 3.9 0.0 - 5.0 Ratio 12/25/2024 8:24 AM EST [facility] Comment: Relative Risk Ratio - Male Ratio - Female 0.5 3.4 3.3 1.0 5.0 4.4 2.0 9.6 7.1 3.0 23.4 11.0 Plasma/Serum 12/25/2024 5:33 AM EST 12/25/2024 6:08 AM EST us Kristina PETERS LAB BLOOD ORDERABL ES Final Result [facility] [address] [place] [address], * (ABNORMAL) Comprehensive Metabolic Panel (12/25/2024 5:33 [...] - 10.5 mg/dL 12/25/2024 6:35 AM EST [facility] Alkaline Phosphatase 125(H) 32 - 122 U/L 12/25/2024 6:35 AM EST [facility] Aspartate Aminotrans (AST) 79(H) <34 U/L [...] ES Final Result [facility] [address] [place] [address], from Last 3 Months or Most Recently Relevant to Health Maintenance Insurance OUT STATE - PPO Advance Directives * Full Code (Latest Code Status on File) Date Activated Date Inactivated Comments 12/24/2024 1:32 PM Care Teams Brush Washer Relationship Specialty Start Date End Date Ngoc Ordonez APRN [address] [place] [address] PCP - General Family Medicine 12/24/24 Beau Hays MD [address] [place] [address] Primary Client Service Consultant Cardiovascular Disease 01/07/25
[2025-04-30 07:43] VITALS: BP 120/76; PULSE 72; O2SAT 98; BMI 32.8
--- NOTE | 2025-04-30 07:43 | A.OFFVIS_ITS ---
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 Cognitive Intake Note: Patient referred inhouse for memory issues Allergies lisinopril Allergy (Severe, Verified 04/30/25 07:46) Anaphylaxis Penicillins Allergy (Severe, Verified 04/30/25 07:46) Unknown Sulfa (Sulfonamide Antibiotics) Allergy (Severe, Verified 04/30/25 07:46) Unknown adhesive Allergy (Intermediate, Verified 04/30/25 07:46) red patches gentamicin Allergy (Unknown, Verified 04/30/25 07:46) Itching Medication List - Last Reconciled 04/30/25 by Vilma Bravo MD amlodipine 10 mg PO DAILY aspirin 81 mg PO DAILY atorvastatin 40 mg PO BEDTIME blood sugar diagnostic (Virtual [employer] Verio test strips) TEST BLOOD SUGAR 3 TIMES A DAY blood sugar diagnostic (Blood Glucose Test strips) As directed buspirone 5 mg PO DAILY clobetasol 0.05% 1 appl topical BID clopidogrel (Plavix) 75 mg PO DAILY cyanocobalamin (vitamin B-12) 2,000 mcg PO DAILY dapagliflozin propanediol (Farxiga) 10 mg PO DAILY ferrous sulfate 325 mg PO DAILY lancets (pi[employer]GO Technologiesuch Delica Plus Lancet) POC testing TID losartan 100 mg PO DAILY magnesium 500 mg PO DAILY mecobalamin (vitamin B12) (B12 Active) 2,000 mcg (2 x 1,000 mcg) PO DAILY metformin 1,000 mg PO BID methocarbamol 750 mg PO NEEDED metoprolol succinate ER 25 mg PO DAILY naproxen 500 mg PO BID nitroglycerin 0.4 mg sublingual Q5M PRN pantoprazole 40 mg PO USEASDIRECTD polyethylene glycol 3350 (Miralax) 17 grams PO DAILY psyllium husk (Fiber (psyllium husk)) 0.4 grams PO DAILY HPI Comments Details: 69y/o Left handed female comes for cognitive evaluation she has a strong family h/o dementia - mother, maternal uncles, aunts, maternal grandparents and is concerned about her short term memory issues. she always had some short term recall issues-not able to tell exactly when it started. she forgets to take her medications sometimes, forgets conversations if she is not paying attention. she plays games in her IPad - and spends a lot of time on it. she has trouble completing tasks or focusing when she is playing games on her IPad. 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 SHe can drive , follow maps, she has anxiety and depression - on buspar.she thinks it is related to her move from [place] .she is not sure if it is well controlled. she has sleep issues when she is upset. she is not sure if she snores. No daytime sleepiness. Her twin sister - has ADHD and was abusing adderall [facility] Medical History (Updated 04/30/25 @ 08:20 by Vilma Bravo MD) Cognitive disorder Non-alcoholic fatty liver disease Exhaustion Memory change Anxiety Hypertension Diabetes Abnormal colonoscopy Surgical History S/P cardiac cath History of colonoscopy (~2014) H/O eye surgery H/O cervical spine surgery History of back surgery H/O elbow surgery H/O wrist surgery H/O section Family History Sister Mental health disorder Substance abuse Cardiovascular disease Hypertension Thyroid disease Advancing dementia Brother Cancer Cardiovascular disease Hypertension Paternal Grandfather Cancer Father Cardiovascular disease Hypertension Mother Hypertension Daughter Thyroid disease Social History Household Members: Spouse Both parents involved: No Caregiver staying overnight: No Housing: House Are you a primary career representative to a significant other at home: No Do you presently have visiting nurse or other home services: No 75 years or older and lives alone: No Alcohol intake: former Patient Tobacco Use Status: Never used Tobacco e-Cigarette/Vaping Use: Never Used Second Hand Smoke Exposure: No service: No Current occupational status: retired Cognitive needs: No Hearing needs: No Vision needs: No Physical Exam Vital Signs: Last Vital Signs Pulse 72 04/30/25 07:43 BP 120/76 04/30/25 07:43 Pulse Ox 98 04/30/25 07:43 BMI result Body Mass Index 32.8 Const General: cooperative, healthy appearing, comfortable and anxious Nutritional Appearance: overweight Orientation/consciousness: patient oriented x3 Eyes Pupils: Equal, round and reactive pupils present Neuro General: patient oriented x3, gait normal, tone normal, moves all extremities and no focal motor deficits Cranial nerves: Yes Facial sensation intact/muscles of mastication intact, Yes Equal, round and reactive pupils present, Yes Bilaterally intact EOM present, Yes Nystagmus not present, Yes Normal facial strength present, Yes Midline tongue present, Yes Symmetric palate elevation present and Yes Ability to bilaterally elevate shoulders present Cognition (Neuro): normal cognition Gait exam (Neuro): Normal gait present Motor exam (neuro): 5/5 motor strength present throughout Orientation What is the (year) (season) (date) (day) (month)?: year, season, date, day and month Where are we (state) (county) (town or city) (hospital) (floor)?: state, county, town or city, hospital/clinic and floor Registration Name of 3 unrelated objects clearly and slowly, then ask patient to repeat all 3 of them. (1st repeat determines score. Make sure they can repeat all three): object 1, object 2 and object 3 Attention & Calculation (CHOOSE ONE) Spell WORLD backwards (DLROW): 5 letters Recall Ask patient to repeat the 3 items from question #3.: object 1, object 2 and object 3 Language Show patient a wristwatch & ask what it is. Repeat for pencil.: watch and pencil Ask the patient to repeat the phrase 'No ifs, ands, or buts' after you.: correct Ask the patient to 'take a piece of paper with their right hand' 'fold paper in half' 'place paper on floor': take paper in right hand, fold paper in half and place paper on floor Print the sentence 'CLOSE YOUR EYES' on a piece. If patient actually closes eyes then score.: followed written direction Give patient a blank piece of paper & ask to write a sentence. Score if it cont ains a noun & verb.: sentence contains subject and verb Ask patient to copy figure of intersecting pentagons exactly. Score if all 10 angles & 2 intersects are included.: all 10 angles present & 2 are intersected Score Score: 30 Assessment & Plan Assessment & Plan (1) Cognitive disorder: Comment: anxiety related ? attention deficit. FH/o dementia Code(s): F09 - Unspecified mental disorder due to known physiological condition Category: Medical (2) Anxiety: Code(s): F41.9 - Anxiety disorder, unspecified Category: Medical Plan MRI brain Reviewed labs Cognitive eval and therapy Psyhciatry eval for mood I will trial her on citalopram 10 mg qd for mood will consider APoE testing Orders: Orders MR head/brain wo con Today F09 - Unspecified mental disorder due to known physiological condition Referrals Speech and Hearing Referral F09 - Unspecified mental disorder due to known physiological condition, R41.89 - Other symptoms and signs involving cognitive functions and awareness Psychiatry Outpatient Consultation Service F41.9 - Anxiety disorder, unspecified, F43.20 - Adjustment disorder, unspecified Medications: New citalopram 10 mg PO DAILY 30 tabs 6RF Coding Level of Care Code New Pt Level 4 (80060) Complex EM visit Add On G2211 Diagnoses Cognitive disorder F09 Anxiety F41.9
== END 2025-04-30 08:29 | disposition home or self-care (01) ==
LOC: HO.HSMS 07:37
PROVIDERS: PCP Nurse Practitioner Family; Visit Provider Psychiatry & Neurology Neurology
DX: R41.89 Other symptoms and signs involving cognitive functions and awareness (principal); F41.9 Anxiety disorder, unspecified
CPT/HCPCS: 99204; G2211

== ENCOUNTER → 2025-04-30 07:36 | Outpatient (BNVA) | payer MEDICARE, SELFPAY | PROVIDERS: PCP Nurse Practitioner Family; Visit Provider Psychiatry & Neurology Neurology | DX: I25.10 Atherosclerotic heart disease of native coronary artery without angina pectoris (principal); R07.89 Other chest pain; Z95.5 Presence of coronary angioplasty implant and graft; E11.8 Type 2 diabetes mellitus with unspecified complications; I15.2 Hypertension secondary to endocrine disorders; E66.811 Obesity, class 1; F09 Unspecified mental disorder due to known physiological condition; F41.9 Anxiety disorder, unspecified | CPT/HCPCS: 99202; 99212 ==

== ENCOUNTER 2025-04-30 12:29 | Outpatient (AMB) | payer MEDICARE, SELFPAY ==
[2025-04-30 12:34] VITALS: BP 118/60; PULSE 76; BMI 32.7
--- NOTE | 2025-04-30 12:34 | A.OFFVIS_ITS ---
Vital Signs 04/30/25 12:34 Height 5 ft Weight 167 lb 8.821 oz BMI 32.7 BP 118/60 Blood Pressure Location Lt brachial Position Sitting Pulse 76 Pulse Source Pulse Oximeter Intake Visit Reasons: 3m fu/ Preop/ colon/ [place] Allergies lisinopril Allergy (Severe, Verified 04/30/25 07:46) Anaphylaxis Penicillins Allergy (Severe, Verified 04/30/25 07:46) Unknown Sulfa (Sulfonamide Antibiotics) Allergy (Severe, Verified 04/30/25 07:46) Unknown adhesive Allergy (Intermediate, Verified 04/30/25 07:46) red patches gentamicin Allergy (Unknown, Verified 04/30/25 07:46) Itching Medication List - Last Reconciled 04/30/25 by Flaco Sanders MD amlodipine 10 mg PO DAILY aspirin 81 mg PO DAILY atorvastatin 40 mg PO BEDTIME blood sugar diagnostic ([employer] Verio test strips) TEST BLOOD SUGAR 3 TIMES A DAY blood sugar diagnostic (Blood Glucose Test strips) As directed buspirone 5 mg PO DAILY citalopram 10 mg PO DAILY clobetasol 0.05% 1 appl topical BID clopidogrel (Plavix) 75 mg PO DAILY cyanocobalamin (vitamin B-12) 2,000 mcg PO DAILY dapagliflozin propanediol (Farxiga) 10 mg PO DAILY ferrous sulfate 325 mg PO DAILY lancets ([employer] Delica Plus Lancet) POC testing TID losartan 100 mg PO DAILY magnesium 500 mg PO DAILY mecobalamin (vitamin B12) (B12 Active) 2,000 mcg (2 x 1,000 mcg) PO DAILY metformin 1,000 mg PO BID methocarbamol 750 mg PO NEEDED metoprolol succinate ER 25 mg PO DAILY naproxen 500 mg PO BID nitroglycerin 0.4 mg sublingual Q5M PRN pantoprazole 40 mg PO USEASDIRECTD polyethylene glycol 3350 (Miralax) 17 grams PO DAILY psyllium husk (Fiber (psyllium husk)) 0.4 grams PO DAILY HPI Comments Details: Heidi returns for follow-up. Recently seen in consultation for coronary disease. It seems that she was having some atypical chest pains but nothing like clear-cut angina. That led to an exercise stress test which was abnormal as she had chest pain, shortness of breath as well as abnormal EKG. Subsequently, it appears that nuclear stress was being considered but not completed. As the patient was having some chest pressure and also lowish blood pressures and other symptoms like weakness, she came to the emergency room. Troponins were unremarkable but because of the positive stress test history, she was transferred for cardiac catheterization. Due to lack of bed at [facility], she went to [place]. Underwent diagonal stenting. Subsequently discharged home. Since then, she states she feels very well. She has got no angina or any other cardiac symptoms. Various risk factors including diabetes, hypertension, dyslipidemia. [facility] Medical History (Updated 04/30/25 @ 08:20 by Vilma Bravo MD) Cognitive disorder Non-alcoholic fatty liver disease Exhaustion Memory change Anxiety Hypertension Diabetes Abnormal colonoscopy Surgical History S/P cardiac cath History of colonoscopy (~2014) H/O eye surgery H/O cervical spine surgery History of back surgery H/O elbow surgery H/O wrist surgery H/O section Family History Sister Mental health disorder Substance abuse Cardiovascular disease Hypertension Thyroid disease Advancing dementia Brother Cancer Cardiovascular disease Hypertension Paternal Grandfather Cancer Father Cardiovascular disease Hypertension Mother Hypertension Daughter Thyroid disease Social History Household Members: Spouse Both parents involved: No Caregiver staying overnight: No Housing: House Are you a primary director of home care hospice to a significant other at home: No Do you presently have visiting nurse or other home services: No 75 years or older and lives alone: No Alcohol intake: former Patient Tobacco Use Status: Never used Tobacco e-Cigarette/Vaping Use: Never Used Second Hand Smoke Exposure: No service: No Current occupational status: retired Cognitive needs: No Hearing needs: No Vision needs: No Review of Systems Const Denies weakness ENT Denies dizziness Card Denies chest pain, Denies chest pain with activity, Denies syncope, Denies rapid heart rate, Denies pedal edema, Denies edema, Denies leg edema, Denies lightheadedness, Denies palpitations, Denies dyspnea, Denies dyspnea on exertion and Denies orthopnea Resp Denies cough, Denies dyspnea and Denies dyspnea on exertion GI Denies hematochezia and Denies change in stool character Musc Denies abnormal gait, Denies muscle cramps, Denies muscle weakness, Denies numbness, Denies radiating pain into limb and Denies tingling Neuro Denies abnormal gait, Denies dizziness, Denies syncope, Denies numbness, Denies tingling and Denies weakness Endo Denies palpitations Physical Exam Vital Signs: Last Vital Signs Pulse 76 04/30/25 12:34 BP 118/60 04/30/25 12:34 BMI result Body Mass Index 32.7 Const General: comfortable and no acute distress Orientation/consciousness: patient oriented x3 HEENT Other: Unremarkable Head: Yes normal to inspection Neck Neck: Yes normal visual inspection Chest Chest palpation & inspection: normal inspection of the chest Resp Auscultation: clear to auscultation bilaterally Cardio Palpation: normal PMI Heart sounds: S1 normal heart sound present, S2 normal heart sound present, no gallops, no murmurs and no rubs GI Palpation (GI): Soft to palpation Back/Spine/Pelvis Other: unremarkable Skin General skin exam: no rashes or lesions noted Neuro General: patient oriented x3 Extrem General: Yes normal to inspection Psych Mental Status: mental status grossly normal Assessment & Plan Assessment & Plan (1) Atherosclerotic cardiovascular disease: Code(s): I25.10 - Atherosclerotic heart disease of poarch coronary artery without angina pectoris Category: Medical (2) Status post coronary artery stent placement: Code(s): Z95.5 - Presence of coronary angioplasty implant and graft Category: Surgical (3) Diabetes mellitus type 2 with complications: Comment: htn and hld Code(s): E11.8 - Type 2 diabetes mellitus with unspecified complications Category: Medical (4) Hypertension: Code(s): I10 - Essential (primary) hypertension Category: Medical Qualifiers: Hypertension type: secondary to endocrine disorders Qualified Code(s): I15.2 - Hypertension secondary to endocrine disorders (5) Obesity (BMI 30.0-34.9): Code(s): E66.811 - Obesity, class 1 Category: Medical Plan Cardiac catheterization-12/2024- 95% stenosis in 1st diagonal. Left main, LAD, circumflex with minimal irregularities. Right coronary with 20-30% stenosis. Very small acute marginal branch has a 90% ostial stenosis. Status post KELLEN to 1st diagonal. Overall, multiple cardiovascular risk factors, recent unstable angina type presentation, status post drug-eluting stent to 1st diagonal but otherwise no major findings. She can stay on long-term aspirin. Plavix for about 12 months from time of stenting. Continue statins but she also has abnormal LFTs and hence that will need to be followed up. LFTs seem to be improving. Optimal management of diabetes, hypertension. Most recent hemoglobin A1c is 5.8%. Weight loss as much able. With regard to question of colonoscopy, if this needs interruption of dual antiplatelet therapy, can plan after November 2025. We will follow her up in about 6 months' time. In the interim, call with concerns. Discussion Notes I discussed with the patient the importance of continuing her cardiac rehabilitation and medication regimen, including Plavix, to manage her coronary artery disease. I advised her to continue her current management for hyperlipidemia, as her recent labs show improvement. We discussed delaying colonoscopy until it is safer to discontinue Plavix. Consider Cologuard in the interim if necessary. Patient was informed and verbally consented to the use of an ambient scribe for clinic note documentation during this visit. Coding Level of Care Code Est Pt Level 4 (33370) Complex EM visit Add On G2211 Diagnoses Atherosclerotic cardiovascular disease I25.10 Status post coronary artery stent placement Z95.5 Diabetes mellitus type 2 with complications E11.8 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 Obesity (BMI 30.0-34.9) E66.811
== END 2025-04-30 13:03 | disposition home or self-care (01) ==
LOC: HO.HCS 12:30
PROVIDERS: Visit Provider Internal Medicine
DX: I25.10 Atherosclerotic heart disease of native coronary artery without angina pectoris (principal); Z95.5 Presence of coronary angioplasty implant and graft; E11.8 Type 2 diabetes mellitus with unspecified complications; I15.2 Hypertension secondary to endocrine disorders; E66.811 Obesity, class 1
CPT/HCPCS: 99214; G2211

== ENCOUNTER → 2025-05-15 07:54 | Outpatient (BNV) | payer MEDICARE, SELFPAY | PROVIDERS: PCP Nurse Practitioner Family; Visit Provider Radiology Diagnostic Radiology | DX: R51.9 Headache, unspecified (principal); R41.3 Other amnesia | CPT/HCPCS: 70551 ==

== ENCOUNTER 2025-05-15 08:00 | Outpatient (REF) | payer MEDICARE, SELFPAY ==
--- NOTE | ~2025-05-15 | MR_ITS ---
EXAMINATION: MR BRAIN WITHOUT CONTRAST CLINICAL INFORMATION: Family history of Alzheimer's. Memory changes. Headache. COMPARISON: None available. TECHNIQUE: MRI of the brain was obtained using routine sequences without contrast. FINDINGS: No restricted diffusion. No acute intracranial hemorrhage, mass effect, midline shift, hydrocephalus or herniation. Tipton-white matter differentiation is normal. Bilateral multifocal patchy and punctate deep periventricular white matter hyperintense T2 FLAIR signal involving centrum semiovale and weems radiata both frontoparietal regions. Old lacunar infarcts, basal ganglia. Posterior cranial fossa contents demonstrated no signal abnormality. Flow-void signal within the main vessels is normal. Sellar/suprasellar region demonstrated no signal abnormality or masses. Craniocervical junction demonstrates normal position of the cerebellar tonsils. No signal abnormality in the hippocampi. Prominence of the extra-axial CSF spaces cerebral sulci involving mostly the frontotemporal poles. MR/MR head/brain wo con IMPRESSION: No acute brain abnormality. Nonspecific white matter T2 FLAIR signal likely related to small vessel occlusive disease in the correct clinical settings. Electronically signed by: Chip Rogel MD 05/15/2025 10:32 AM EDT
--- OUTSIDE RECORDS SUMMARY | 2025-05-15 08:04 | XMS_ITS ---
Author Name [facility] Organization Unknown Results Test Name/Text Value Interpretation Date Range Source Est. average glucose Bld gHb Est-mCnc 140.0 mg/dL Normal 12/25/2024 HHCCT Hgb A1c MFr Bld 6.5 % Above high normal 12/25/2024 - 5.7 HHCCT POC Glucose 136.0 mg/dL Above high normal 12/25/2024 65 - 99 HHCCT HDLc SerPl-mCnc 43.0 mg/dL Below low normal 12/25/2024 60 - HHCCT HDLc SerPl 3.9 Ratio Normal 12/25/2024 0 - 5 HHCCT LDLc SerPl Calc-mCnc 98.0 mg/dL Normal 12/25/2024 - 130 HHCCT Trigl SerPl-mCnc 135.0 mg/dL Normal 12/25/2024 - 150 HHCCT Cholest SerPl-mCnc 168.0 mg/dL Normal 12/25/2024 - 200 HHCCT Albumin SerPl-mCnc 4.6 g/dL Normal 12/25/2024 3.4 - 4.8 HHCCT Bilirub SerPl-mCnc 0.6 mg/dL Normal 12/25/2024 0.3 - 1.2 HHCCT GFR/BSA.pred SerPlBld LPH-FGN-GeUTpa 69.0 Normal 12/25/2024 59 - HHCCT Glucose SerPl-mCnc 131.0 mg/dL Above high normal 12/25/2024 74 - 106 HHCCT BUN SerPl-mCnc 10.0 mg/dL Normal 12/25/2024 9 - [address] Chloride SerPl-sCnc 107.0 mmol/L Normal 12/25/2024 98 - 1 07 HHCCT Calcium SerPl-mCnc 10.1 mg/dL Normal 12/25/2024 8.7 - 10. 5 HHCCT Globulin Ser Calc-mCnc 2.9 g/dL Normal 12/25/2024 1.5 - 3.9 HHCCT AST SerPl-cCnc 79.0 U/L Above high normal 12/25/2024 - 34 HHCCT Sodium SerPl-sCnc 139.0 mmol/L Normal 12/25/2024 136 - 14 5 HHCCT Anion Gap Bld-sCnc 8.0 Normal 12/25/2024 5 - 15 HHCCT Creat SerPl-mCnc 0.9 mg/dL Normal 12/25/2024 0.6 - 1 HH CCT Albumin/Glob SerPl 1.6 Ratio Normal 12/25/2024 1.5 - 2.5 HHCCT Potassium SerPl-sCnc 4.4 mmol/L Normal 12/25/2024 3.4 - 4.5 HHCCT BUN/Creat SerPl 11.0 Ratio Normal 12/25/2024 10 - 25 HH CCT Prot SerPl-mCnc 7.5 g/dL Normal 12/25/2024 5.7 - 8.[address] CO2 SerPl-sCnc 24.0 mmol/L Normal 12/25/2024 20 - 31 HH CCT ALT SerPl-cCnc 98.0 U/L Above high normal 12/25/2024 7 - 35 HHCCT ALP SerPl-cCnc 125.0 U/L Above high normal 12/25/2024 32 - 1 22 HHCCT aPTT PPP 33.0 seconds Normal 12/25/2024 26 - 37 HHCCT Anticoagulant IV HEPARIN, UNFRACTIONATED Normal 12/25/2024 HHCCT Prothrombin time 12.1 seconds Normal 12/25/2024 10 - 13.5 HHCCT INR PPP 1.1 Normal 12/25/2024 HHCCT Anticoagulant IV HEPARIN, UNFRACTIONATED Normal 12/25/2024 HHCCT MCV RBC Auto 94.0 fL Normal 12/25/2024 80 - 100 HHCCT MCHC RBC Auto-mCnc 33.1 g/dL Normal 12/25/2024 30 - 36 HHCCT Basophils num Bld Auto 0.11 Thou/uL Normal 12/25/2024 0 - 0.2 HHCCT Neutrophils num Bld Auto 2.69 Thou/uL Normal 12/25/2024 2 - 7.5 HHCCT PMV Bld Auto 9.4 fL Normal 12/25/2024 7.5 - 12.5 HHCCT Imm Granulocytes/leuk NFr Bld Auto 0.2 % Normal 12/25/2024 HHCCT Eosinophil/leuk NFr Bld Auto 4.7 % Normal 12/25/2024 HHCCT Lymphocytes num Bld Auto 1.48 Thou/uL Below low normal 12/25/2024 1.5 - 4.5 HHCCT Hct VFr Bld Auto 42.9 % Normal 12/25/2024 35 - 47 HH CCT Monocytes num Bld Auto 0.55 Thou/uL Normal 12/25/2024 0.2 - 1.5 HHCCT Lymphocytes/leuk NFr Bld Auto 29.1 % Normal 12/25/2024 HHCCT Eosinophil num Bld Auto 0.24 Thou/uL Normal 12/25/2024 0 - 0.7 HHCCT Basophils/leuk NFr Bld Auto 2.2 % Normal 12/25/2024 HHCCT Imm Granulocytes num Bld Auto 0.01 Thou/uL Normal 12/25/2024 0 - 0.1 HHCCT Platelet num Bld Auto 245.0 Thou/uL Normal 12/25/2024 150 - 450 HHCCT WBC num Bld Auto 5.1 Thou/uL Normal 12/25/2024 4 - 11 HHCCT Neutrophils/leuk NFr Bld Auto 53.0 % Normal 12/25/2024 HHCCT MCH RBC Qn Auto 31.1 pg Above high normal 12/25/2024 27 - 31 HHCCT Monocytes/leuk NFr Bld Auto 10.8 % Normal 12/25/2024 HHCCT RDW RBC Auto-Rto 12.2 % Normal 12/25/2024 11.5 - 14.5 HHCCT Hgb Bld-mCnc 14.2 g/dL Normal 12/25/2024 11.7 - 15.7 HHCC T RBC num Bld Auto 4.57 Mil/uL Normal 12/25/2024 4 - 5.4 HHCCT Troponin I SerPl DL<=0.01 ng/mL-mCnc 29.0 ng/L Normal 12/25/2024 - 34 HHCCT Delta Unable to calculate result Normal 12/25/2024 HHCCT POC Glucose 208.0 mg/dL Above high normal 12/25/2024 65 - 99 HHCCT Troponin I SerPl DL<=0.01 ng/mL-mCnc 5.0 ng/L Normal 12/25/2024 - HHCCT Delta Unable to calculate result Normal 12/25/2024 HHCCT POC Glucose 150.0 mg/dL Above high normal 12/24/2024 65 - 99 HHCCT POC Glucose 135.0 mg/dL Above high normal 12/24/2024 65 - 99 HHCCT LMWH PPP Executive Chef Assistant-aCnc 0.39 IU/mL Normal 12/24/2024 HHCCT Anticoagulant IV HEPARIN, UNFRACTIONATED Normal 12/24/2024 HHCCT Chloride SerPl-sCnc 103.0 mmol/L Normal 12/24/2024 98 - 1 07 HHCCT Glucose SerPl-mCnc 130.0 mg/dL Above high normal 12/24/2024 74 - 106 HHCCT BUN SerPl-mCnc 13.0 mg/dL Normal 12/24/2024 9 - [address] Sodium SerPl-sCnc 139.0 mmol/L Normal 12/24/2024 136 - 14 5 HHCCT GFR/BSA.pred SerPlBld CBE-QBO-YxUPmr 80.0 Normal 12/24/2024 59 - HHCCT Calcium SerPl-mCnc 10.2 mg/dL Normal 12/24/2024 8.7 - 10. 5 HHCCT CO2 SerPl-sCnc 27.0 mmol/L Normal 12/24/2024 20 - 31 HH CCT BUN/Creat SerPl 16.0 Ratio Normal 12/24/2024 10 - 25 HH CCT Potassium SerPl-sCnc 3.8 mmol/L Normal 12/24/2024 3.4 - 4.5 HHCCT Anion Gap Bld-sCnc 9.0 Normal 12/24/2024 5 - 15 HHCCT Creat SerPl-mCnc 0.8 mg/dL Normal 12/24/2024 0.6 - 1 HH CCT Troponin I SerPl DL<=0.01 ng/mL-mCnc <3.0 ng/L Normal 12/24/2024 - 34 HHCCT Delta NO PREVIOUS RESULT Normal 12/24/2024 HHCCT MCH RBC Qn Auto 31.3 pg Above high normal 12/24/2024 27 - 31 HHCCT Hct VFr Bld Auto 43.4 % Normal 12/24/2024 35 - 47 HH CCT RDW RBC Auto-Rto 12.2 % Normal 12/24/2024 11.5 - 14.5 HHCCT Platelet num Bld Auto 270.0 Thou/uL Normal 12/24/2024 150 - 450 HHCCT MCHC RBC Auto-mCnc 33.6 g/dL Normal 12/24/2024 30 - 36 HHCCT RBC num Bld Auto 4.66 Mil/uL Normal 12/24/2024 4 - 5.4 HHCCT PMV Bld Auto 9.8 fL Normal 12/24/2024 7.5 - 12.5 HHCCT MCV RBC Auto 93.0 fL Normal 12/24/2024 80 - 100 HHCCT Hgb Bld-mCnc 14.6 g/dL Normal 12/24/2024 11.7 - 15.7 HHCC T WBC num Bld Auto 6.0 Thou/uL Normal 12/24/2024 4 - 11 HHCCT History of Medication Use Medication Directions Dispensed Refills Start Date End Date Stat aspirin enteric coated (ECOTRIN LOW STRENGTH) 81 MG EC tablet Take 1 tablet (81 mg total) by mouth daily. 12/26/2024 active clopidogrel (PLAVIX) 75 MG tablet Take 1 tablet (75 mg total) by mouth daily. 12/26/2024 active atorvastatin (LIPITOR) 40 MG tablet Take 1 tablet (40 mg total) by mouth nightly. 12/25/2024 active metoPROLOL SUCCINATE (TOPROL-XL) 25 MG 24 hr tablet Take 1 tablet (25 mg total) by mouth daily. 12/25/2024 active metFORMIN (GLUCOPHAGE) 1000 MG tablet Take 1 tablet (1,000 mg total) by mouth 2 (two) times a day with meals. 12/11/2024 active PANTOprazole (PROTONIX) 40 MG EC tablet Take 1 tablet (40 mg total) by mouth every morning before breakfast. 10/15/2024 active amLODIPine (NORVASC) 10 MG tablet Take 1 tablet (10 mg total) by mouth daily. 10/08/2024 active losartan (COZAAR) 100 MG tablet Take 1 tablet (100 mg total) by mouth daily. 10/01/2024 active busPIRone (BUSPAR) 5 MG tablet Take 1 tablet (5 mg total) by mouth 2 (two) times a day. active Cyanocobalamin (VITAMIN B 12 PO) Take 1,000 mcg by mouth daily. active ferrous sulfate 325 (65 FE) MG EC tablet Take 1 tablet (325 mg total) by mouth daily. Take 2 hours before or 4 hours after acid reducers. active loratadine (CLARITIN REDITABS) 10 MG dissolvable tablet Take 1 tablet (10 mg total) by mouth daily. active Multiple Vitamins-Minerals (multivitamin with minerals) tablet Take 1 tablet by mouth daily. active omega-3 fatty acids (FISH OIL) 1000 MG Cap capsule Take 1 capsule (1,000 mg total) by mouth daily. active Allergies Allergen Reaction Severity Comment Documented Date Source Statu s SULFA ANTIBIOTICS HIVES 12/24/2024 H[facility] act [place]ord ADHESIVES/TAPE ITCHING HHCCT AMOXICILLIN UNKNOWN/PATIEN T AND FAMILY UNABLE TO DEFINE Genital swelling HHCCT CODEINE GI INTOLERANCE/NA USEA/VOMITING HHCCT GENTAMICIN GI INTOLERANCE/NA USEA/VOMITING HHCCT LISINOPRIL KIDNEY INJURY HHCCT PENICILLIN V UNKNOWN/PATIEN T AND FAMILY UNABLE TO DEFINE HHCCT Problems Problem Status Onset Date Problem Type Date of Resolution Source Fatty liver active 2024-12-24 ProblemAct H[facility] Type 2 diabetes mellitus without complication, with long-term current use of insulin active 2024-12-24 ProblemAct H[facility] Mixed hyperlipidemia active 2024-12-24 ProblemAct H[facility]CT NSTEMI (non-ST elevated myocardial infarction) active 2024-12-24 ProblemAct H[facility]CT Chest pain, unspecified type active EncounterDiagnosisAct HH CCT Essential hypertension active 2024-12-24 ProblemAct H[facility] Encounters Encounter Type Encounter Reason Primary Diagnosis Location Date Ambulatory Encounter for follow-up examination after completed treatment for conditions other than malignant neoplasm Encounter for follow-up examination after completed treatment for conditions other than malignant neoplasm [facility] [employer] [facility] 01/07/2025 Inpatient Non-ST elevation (NSTEMI) myocardial infarction Non-ST elevation (NSTEMI) myocardial infarction [facility] 12/24/2024 Ambulatory [facility] 12/24/2024 Care Team Organization Name Specialty Phone Email Start Date End Da koby [facility] 01/15/2025 02/14/2025 [facility] [facility]RE[facility] Primary [facility] 12/25/2024 [facility] [employer] 12/25/2024 [facility] 12/24/2024
--- OUTSIDE RECORDS SUMMARY | 2025-05-15 08:04 | XMS_ITS | Clinical Summary ---
Author Organization [facility] Address [address] [place] [address] Care Team Providers Care Chest Painting And Sealing Supervisor Name Role Phone Ngoc Ordonez APRN Primary Care Provider + Beau Hays MD Unavailable [phone] Allergies Active Allergy Reactions Criticality Noted Date [...] Years Used Date Smoking Tobacco: Never Assessed [facility] Utilities Answer Date Recorded In the past 12 months has [employer], [employer], oil, or water [employer] threatened to shut off services in your [...] any time in the past 12 m [facility], were you homeless or living in a correction (including now)? No 12/25/2024 Comments Unknown Sex [...] this topic Medical Devices Implanted Type Area Perinatal Director Device Identifier Shelf Expiration Date Model / Serial / Lot [id number] Coronary Stent System Synergy Xd Mr 2.25mm 16mm Delivery s - [id number] Implanted:Qty : 1 on 12/24/2024 by Santosh Brady MD at [facility] Stent N/A: Coronary [employer] [id number] 02/20/2026 [id number] / / [id number] Procedures Procedure Name Priority Date/Time Associated Diagnosis [...] A1C 6.5(H) <5.7 % 12/25/2024 5:38 PM [facility] Comment: A1c% Interpretation 5.7 - 6.0 Increase risk of diabetes 6.1 - 6.4 Higher risk of diabetes > or = 6.5 Consistent with diabetes Diabetes Care, 33(Supp 1):S1-S61, 2010 Estimated Average Glucose 140 mg/dL 12/25/2024 5:38 PM [facility] Blood Blood specimen / Unknown 12/25/2024 8:00 AM EST 12/25/2024 8:12 AM EST Keenan Arreguin MD LAB BLOOD [place] [address], [address] [address] * (ABNORMAL) LIPID PANEL (12/25/2024 5:33 AM EST) Cholesterol, Total 168 <200 mg/dL 2024 8:24 AM EST [facility] Triglycerides 135 <150 mg/dL 12/25/2024 8:24 AM EST [facility] Cholesterol, HDL 43(L) >60 mg/dL 12/25/19 8:24 AM EST [facility] Estimated LDL 98 <130 mg/dL 12/25/2024 8:24 AM EST [facility] Comment: NCEP Guidelines: < 100 mg/dL Optimal 100 - 129 mg/dL Near Optimal/Above Optimal 130 - 159 mg/dL Borderline High 160 - 189 mg/dL High >/= 190 mg/dL Very High Cholesterol/HDL Ratio 3.9 0.0 - 5.0 Ratio 12/25/2024 8:24 AM EST [facility] Comment: Relative Risk Ratio - Male Ratio - Female 0.5 3.4 3.3 1.0 5.0 4.4 2.0 9.6 7.1 3.0 23.4 11.0 Plasma/Serum 12/25/2024 5:33 AM EST 12/25/2024 6:08 AM EST us Kristina PETERS LAB BLOOD ORDERABL ES Final Result [facility] [address] [place] [address], * (ABNORMAL) Comprehensive Metabolic Panel (12/25/2024 5:33 AM EST) Glucose 131(H) 74 - 106 mg/dL 12/25/2024 6:35 AM EST [facility] Comment:Fasting: <100 mg/dL, Non-Fasting: <200 mg/dL (ADA 2005) Blood Urea Nitrogen (BUN) 10 9 - 23 mg/dL 12/25/2024 6:35 AM EST [facility] Creatinine 0.9 0.6 - 1.0 mg/dL 12/25/2024 6:35 AM EST [facility] eGFR 69 >59 12/25/2024 6:35 AM EST [facility] Comment:CKD-EPI (2020) in mL /min/1.73 sq meters. Sodium 139 136 - 145 mmol/L 12/25/2024 6:35 AM EST [facility] Potassium 4.4 3.4 - 4.5 mmol/L 12/25/2024 6:35 AM EST [facility] Chloride 107 98 - 107 mmol/L 12/25/2024 6:35 AM EST [facility] CO2 24 20 - 31 mmol/L 12/25/2024 6:35 AM EST [facility] Calcium 10.1 8.7 - 10.5 mg/dL 12/25/2024 6:35 AM EST [facility] Alkaline Phosphatase 125(H) 32 - 122 U/L 12/25/2024 6:35 AM EST [facility] Aspartate Aminotrans (AST) 79(H) <34 U/L 12/25/2024 6:35 AM EST [facility] Alanine Aminotrans (ALT) 98(H) 7 - 35 U/L 12/25/2024 6:35 AM EST [facility] Bilirubin, Total 0.6 0.3 - 1.2 mg/dL 12/25/2024 6:35 AM EST [facility] Protein, Total 7.5 5.7 - 8.2 g/dL 12/25/2024 6:35 AM EST [facility] Albumin 4.6 3.4 - 4.8 g/dL 12/25/2024 6:35 AM EST [facility] BUN/Creatinine Ratio 11 10.0 - 25.0 Ratio 12/25/2024 6:35 AM EST [facility] Globulin 2.9 1.5 - 3.9 g/dL 12/25/2024 6:35 AM EST [facility] Albumin/Globulin Ratio 1.6 1.5 - 2.5 Ratio 12/25/2024 6:35 AM EST [facility] Anion Gap 8 5 - 15 12/25/2024 6:35 AM EST [facility] Blood (Plasma/Serum) 12/25/2024 5:33 AM EST 12/25/2024 6:08 AM EST us Kristina PETERS LAB BLOOD ORDERABL ES Final Result [facility] [address] [place] [address], from Last 3 Months or Most Recently Relevant to Health Maintenance Insurance OUT STATE - PPO Advance Directives * Full Code (Latest Code Status on File) Date Activated Date Inactivated Comments 12/24/2024 1:32 PM Care Teams Chest Painting And Sealing Supervisor Relationship Specialty Start Date End Date Ngoc Ordonez APRN [address] [place] [address] PCP - General Family Medicine 12/24/24 Beau Hays MD [address] [place] [address] Primary [employer] Cardiovascular Disease 01/07/25
== END 2025-05-15 08:01 | disposition home or self-care (01) ==
LOC: HO.MRI 08:00
PROVIDERS: PCP Nurse Practitioner Family; Visit Provider Psychiatry & Neurology Neurology
DX: R51.9 Headache, unspecified (principal); F09 Unspecified mental disorder due to known physiological condition
CPT/HCPCS: 70551

== ENCOUNTER 2025-05-22 08:48 | Outpatient (AMB) | payer MEDICARE, SELFPAY ==
--- OUTSIDE RECORDS SUMMARY | 2025-05-20 16:55 | XMS_ITS | Continuity of Care Document ---
Author Organization [facility] ter Address [address] [place] [address]- Care Team Providers Care Insurance Territory Manager Name Role Phone Not on Staff, PCP Primary Care Physician Unavail able [place] [facility] [place]19[place]25 - 05/20/[address] [address]- Discharge Disposition: A-D/C Home Attending Physician: Talia Singh MD Admitting Physician: Chela Vargas DO Referring Physician: Not on Staff, Referring MD Encounter Type: Disch Obv Allergies, Adverse Reactions, Alerts Substance Criticality Severity Reaction Reaction Severity Status codeine Active gentamicin Active penicillin Active hydrochlorothiazide-lisinopril Active sulfa drugs Active Medications aspirin 81 mg oral delayed release tablet 81 mg, 1, tablet, By Mouth, Daily, # 30 tablet, Refills 0, Maintenance, 05/19/25 2:17:00 PM EDT, Partial fill upon patient request if the prescription is for a schedule II opioid drug. Start Date: 05/19/25 Status: Ordered Quantity: 30.0 Unit: tablet Repeat number: 1 busPIRone 5 mg oral tablet 5 mg, 1, tablet, By Mouth, Daily at bedtime, Refills 0, Maintenance, 05/19/25 2:19:00 PM EDT, Partial fill upon patient request if the prescription is for a schedule II opioid drug. Start Date: 05/19/25 Status: Ordered Repeat number: 1 Co Q-10 = 100 mg, By Mouth, Daily, 0 Refills, Maintenance, 05/19/25 2:21:00 PM EDT, Partial fill upon patient request if the prescription is for a schedule II opioid drug. Start Date: 05/19/25 Status: Ordered Repeat number: 1 Cyanocobalamin = 1,000 mcg, By Mouth, 2 times a day, 0 Refills, Maintenance, 05/19/25 2:20:00 PM EDT, Partial fill upon patient request if the prescription is for a schedule II opioid drug. Start Date: 05/19/25 Status: Ordered Repeat number: 1 Farxiga 10 mg oral tablet 1 tablet = 10 mg, By Mouth, Daily, # 30 tablet, 0 Refills, Maintenance, 05/19/25 2:18:00 PM EDT, Tablet, Partial fill upon patient request if the prescription is for a schedule II opioid drug. Start Date: 05/19/25 Status: Ordered Quantity: 30.0 Unit: tablet Repeat number: 1 ferrous sulfate 324 mg (65 mg elemental iron) oral delayed release tablet 1 tablet = 324 mg, By Mouth, Daily, # 100 tablet, 0 Refills, Maintenance, 05/19/25 2:20:00 PM EDT, CR Tablet, Partial fill upon patient request if the prescription is for a schedule II opioid drug. Start Date: 05/19/25 Status: Ordered Quantity: 100.0 Unit: tablet Repeat number: 1 Fish Oil = 1,200 mg, By Mouth, 2 times a day, 0 Refills, Maintenance, 05/19/25 2:20:00 PM EDT, Partial fill upon patient request if the prescription is for a schedule II opioid drug. Start Date: 05/19/25 Status: Ordered Repeat number: 1 lecithin 1200 mg oral capsule 1 capsule = 1,200 mg, By Mouth, Daily, # 100 capsule, 0 Refills, Maintenance, 05/19/25 2:20:00 PM EDT, Capsule, Partial fill upon patient request if the prescription is for a schedule II opioid drug. Start Date: 05/19/25 Status: Ordered Quantity: 100.0 Unit: capsule Repeat number: 1 Lipitor 40 mg oral tablet 1 tablet = 40 mg, By Mouth, Daily, # 30 tablet, 0 Refills, Maintenance, 05/19/25 2:21:00 PM EDT, Tablet, Partial fill upon patient request if the prescription is for a schedule II opioid drug. Start Date: 05/19/25 Status: Ordered Quantity: 30.0 Unit: tablet Repeat number: 1 Loratadine 10 mg, By Mouth, Daily, Refills 0, Maintenance, 05/19/25 2:19:00 PM EDT, Partial fill upon patient request if the prescription is for a schedule II opioid drug. Start Date: 05/19/25 Status: Ordered Repeat number: 1 Losartan = 100 mg, By Mouth, Daily, 0 Refills, Maintenance, 05/19/25 2:17:00 PM EDT, Partial fill upon patient request if the prescription is for a schedule II opioid drug. Start Date: 05/19/25 Status: Ordered Repeat number: 1 losartan 50 mg oral tablet 100 mg, Tablet, By Mouth, 05/20/25 9:00:00 AM EDT Start Date: 05/20/25 Stop Date: 05/20/25 Status: Completed Repeat number: 1 Melatonin = 7.5 mg, By Mouth, Daily at bedtime, 0 Refills, Maintenance, 05/19/25 2:22:00 PM EDT, Partial fill upon patient request if the prescription is for a schedule II opioid drug. Start Date: 05/19/25 Status: Ordered Repeat number: 1 metFORMIN 1000 mg oral tablet 1 tablet = 1,000 mg, By Mouth, 2 times a day, # 60 tablet, 0 Refills, Maintenance, 05/19/25 2:18:00 PM EDT, Tablet, Partial fill upon patient request if the prescription is for a schedule II opioid drug. Start Date: 05/19/25 Status: Ordered Quantity: 60.0 Unit: tablet Repeat number: 1 methocarbamol 750 mg oral tablet 2 tablet = 1,500 mg, By Mouth, Daily, PRN Other, 0 Refills, Maintenance, 05/19/25 2:21:00 PM EDT, Partial fill upon patient request if the prescription is for a schedule II opioid drug. Start Date: 05/19/25 Status: Ordered Repeat number: 1 metoprolol 25 mg oral tablet, extended release 25 mg, 1, tablet, By Mouth, Daily, # 30 tablet, Refills 0, Maintenance, 05/19/25 7:58:00 PM EDT, Partial fill upon patient request if the prescription is for a schedule II opioid drug. Start Date: 05/19/25 Status: Ordered Quantity: 30.0 Unit: tablet Repeat number: 1 Naproxen = 500 mg, By Mouth, Daily, PRN Pain , Moderate, 0 Refills, Maintenance, 05/19/25 2:21:00 PM EDT, Partial fill upon patient request if the prescription is for a schedule II opioid drug. Start Date: 05/19/25 Status: Ordered Repeat number: 1 Norvasc 10 mg oral tablet 10 mg, Tablet, By Mouth, 05/20/25 9:00:00 AM EDT Start Date: 05/20/25 Stop Date: 05/20/25 Status: Completed Repeat number: 1 Norvasc 10 mg oral tablet 10 mg, 1, tablet, By Mouth, Daily, # 30 tablet, Refills 0, Maintenance, 05/19/25 2:17:00 PM EDT, Partial fill upon patient request if the prescription is for a schedule II opioid drug. Start Date: 05/19/25 Status: Ordered Quantity: 30.0 Unit: tablet Repeat number: 1 pantoprazole 40 mg oral delayed release tablet 1 tablet = 40 mg, By Mouth, Daily, # 30 tablet, 0 Refills, Maintenance, 05/19/25 2:21:00 PM EDT, EC Tablet Start Date: 05/19/25 Status: Ordered Quantity: 30.0 Unit: tablet Repeat number: 1 Plavix 75 mg oral tablet 75 mg, 1, tablet, By Mouth, Daily, # 30 tablet, Refills 5, Maintenance, 05/19/25 2:18:00 PM EDT, Partial fill upon patient request if the prescription is for a schedule II opioid drug. Start Date: 05/19/25 Status: Ordered Quantity: 30.0 Unit: tablet Repeat number: 1 ZyrTEC 10 mg oral tablet 1 tablet = 10 mg, By Mouth, Daily, # 30 tablet, 0 Refills, Maintenance, 05/19/25 7:54:00 PM EDT, Tablet, Partial fill upon patient request if the prescription is for a schedule II opioid drug. Start Date: 05/19/25 Status: Ordered Quantity: 30.0 Unit: tablet Repeat number: 1 Problem List Condition Confirmation Course Effective Dates Status [facility] atus Informant Obese class I Confirmed Active Results Radiology Reports * Exam Date Time Procedure Performing Provider Status 05/19/25 9:16 AM Chest 2 Views Frontal and Lat Auth (Verified) Notes: (Chest 2 Views Frontal and Lat) Reason For Exam: Chest Pain;Other: RESULT: Chest 2 Views Frontal and Lat Chest 2 Views Frontal and Lat Reason: Chest Pain. COMPARISON: 12/31/2024 FINDINGS: LINES AND TUBES: None. LUNGS AND PLEURA: Clear lungs. Normal pulmonary vascularity. No evidence of pleural effusion. No pneumothorax. HEART, MEDIASTINUM AND GARRET: Heart is normal in size. Normal mediastinal and hilar contour. BONES AND SOFT TISSUES: No acute abnormality. Status post cervical fusion and cholecystectomy. IMPRESSION: No acute abnormality. I have personally reviewed the images and I agree with this report. WSN: [id number] Ordering Physician: Mayelin Pittman Dictated By: Shyam Kent DO Dictated Date/Time: 05/19/25 9:43 am Reviewed By: Riley Mathews MD Signed By: Riley Mathews MD Signed Date/Time: 05/19/25 9:48 am Transcribed By: GILBERTO Transcribed Date/Time: 05/19/25 9:25 am History and physical note * Talia Singh MD: PERFORM Event Display: History and Physical Hospital Authored Date: [id number] Patient: ??BRIDGETT JERNIGAN ? Age:??69 Years?Sex:??Female?:??1955?? History of Present Illness 69-year-old female presented to ED with complaint of chest pain ?? Sfpt-pedw-hhp male that in December she had a stent placed. ??She told me that subsequently she hasbeen doing well??but this morning she started having chest pain which was located in the center of her chest, nonradiating, pressure-like, 3/10, constant lasted for several hours without any??shortness of breath but associated with sweating so she decided to come to the hospital. ??No particular relation??of chest pain with activity or inspiration. ??Started while watching TV ?? Patient denied any fever, chills.?? No chest pain at the moment No leg swelling No fever or chills.?? No cough or wheezing No nausea vomiting or abdominal pain. ?? Review of Systems ROS: All systems reviewed and negative except as in HPI ?? Past medical history: History of coronary artery disease, hyperlipidemia, depression, hypertension, diabetes mellitus, GERD Social history: Denies smoking, alcohol or drug use Family history: Brother and father with history of coronary artery disease Objective Vital Signs?? Temperature: 97.7 DegF (05/19/25 11:14:00) Temperature Route: Oral (05/19/25 11:14:00) Pulse Rate: 62 bpm (05/19/25 12:43:00) Respiratory Rate: 17 br/min (05/19/25 12:43:00) Systolic Blood Pressure: 104 mm Hg (05/19/25 12:43:00) Diastolic Blood Pressure: 65 mm Hg (05/19/25 12:43:00) Blood pressure sites: Arm, right (05/19/25 12:43:00) Mean Arterial Pressure: 77 mm Hg (05/19/25 11:14:00) Pulse Pressure: 39 mm Hg (05/19/25 12:43:00) Oxygen Saturation:??92 %??Low (05/19/25 12:43:00) Mode of Delivery (Oxygen): Room air (05/19/25 12:43:00) Early Warning Score: 4 (05/19/25 14:49:19) ? Physical Exam CHARACTER ACTRESS: AA0 3, no focal motor or sensory deficit, cranial nerves II to XII intact CVS: S1, S2, No gallop, murmur or rub Resp: b/l good air entry, no wheezing or rhales, CTA b/l GI: Soft, NT, ND, BS +ve EXT: no pedal edema Skin: no rash Neck: supple, no thyromegaly or lymphadenopathy Eyes: PERRLA, EOMI?? Head: atraumatic, normocephalic ENMT: moist mucus membranes, nares patent with no discharge Musculoskeletal: no joint tenderness, swelling or limitation of movement ?? Assessment/Plan Assessment:??69-year-old female??with past medical history of??coronary artery disease, hyperlipidemia, depression, hypertension, diabetes mellitus, GERD ?? Chest pain (R07.9) History of CAD (coronary artery disease) (Z86.79) ? Patient presented with complaint of chest pain.??Pulmonary embolism unlikely.??ACS ruled out. Patient had cardiac cath done??earlier this year??in December??2024.??Cardiac cath showed??first diagonal??with 95% stenosis??for which stent is placed.??Left main, LAD, circumflex with minimal irregularities.??RCA with 20 to 30% stenosis.??Also??showed??very small acute marginal??branch??with 90% ostial stenosis. Patient has been compliant with her medications. Will continue patient on aspirin Plavix and statin Stress test Spoke to patient's primary eap counselor??and obtained??cardiac cath report Monitor for recurrence of symptoms-monitor on telemetry ? Depression (F32.A):??Buspirone ?? Hyponatremia (E87.1):??Mild and asymptomatic ?? Chronic GERD (K21.9):??PPI ?? Diabetes mellitus (E11.9):??Holding p.o. medication.??Sliding scale insulin ?? Hypertension (I10):??Amlodipine and losartan ?? Hyperlipidemia (E78.5):??Statin ?? VTE Prophylaxis:??SCD ?VTE Prophylaxis Assessment:??VTE Prophylaxis Ordered ?? Code Status:??Full ?Order Code Status:??Code Status Ordered ? Histories Allergies Allergies ?(Active and Proposed Allergies Only) gentamicin? (Severity: Unknown severity, Onset: Unknown) hydrochlorothiazide-lisinopril? (Severity: Unknown severity, Onset: Unknown) codeine? (Severity: Unknown severity, Onset: Unknown) sulfa drugs? (Severity: Unknown severity, Onset: Unknown) penicillin? (Severity: Unknown severity, Onset: Unknown) ? Medications Home Medications Amlodipine (Norvasc 10 mg oral tablet)??10 Milligram 1 tablet By Mouth Daily Aspirin (aspirin 81 mg oral delayed release tablet)??81 Milligram 1 tablet By Mouth Daily Atorvastatin (Lipitor 40 mg oral tablet)??1 tab(s) 40 Milligram By Mouth Daily BusPIRone (busPIRone 5 mg oral tablet)??5 Milligram 1 tablet By Mouth Daily at bedtime Clopidogrel (Plavix 75 mg oral tablet)??75 Milligram 1 tablet By Mouth Daily dapagliflozin (Farxiga 10 mg oral tablet)??1 tab(s) 10 Milligram By Mouth Daily Ferrous Sulfate (ferrous sulfate 324 mg (65 mg elemental iron) oral delayed release tablet)??1 tab(s) 324 Milligram By Mouth Daily Lecithin (lecithin 1200 mg oral capsule)??1 capsule 1,200 Milligram By Mouth Daily Loratadine??10 Milligram By Mouth Daily Losartan??100 Milligram By Mouth Daily Metformin (metFORMIN 1000 mg oral tablet)??1 tab(s) 1,000 Milligram By Mouth 2 times a day Methocarbamol (methocarbamol 750 mg oral tablet)??2 tab(s) 1,500 Milligram By Mouth Daily as neededOther Naproxen??By Mouth as needed Pain , Moderate Oktaha-3 Polyunsaturated Fatty Acids (Fish Oil)??By Mouth Pantoprazole (pantoprazole 40 mg oral delayed release tablet)??1 tab(s) 40 Milligram By Mouth Daily Ubiquinone (Co Q-10)??100 Milligram By Mouth Daily ? Results ? CBC, CBC w/Diff?? CBC?? Differential?? WBC: 6.6 k/mm3 (08:45) Abs. Neut: 4.4 k/mm3 (08:45) RBC: 4.63 m/mm3 (08:45) Abs. Lymph: 1.3 k/mm3 (08:45) Hct: 42.1 % (08:45) Abs. Union: 0.6 k/mm3 (08:45) RDW-SD: 38.9 femtoliters (08:45) Abs. Eo: 0.2 k/mm3 (08:45) Nucleated RBC (Automated): 0 #/100 WBC'S (08:45) Abs. Baso: 0.1 k/mm3 (08:45) Abs. NRBC: 0 k/mm3 (08:45) Neut %: 66.3 % (08:45) ?? Lymph %: 20.2 % (08:45) ?? Union %: 8.9 % (08:45) ?? Eos %: 3.1 % (08:45) ?? Baso %: 1.2 % (08:45) ?? Imm Gran: 0.3 % (08:45) ?? Abs. Imm Gran: 0 k/mm3 (08:45) ? BMP, Mg, and Phos Anion Gap: 12 mmol/L (08:45) Bicarbonate Level: 23 mmol/L (08:45) BUN:??29 mg/dL??High (08:45) Calcium: 10 mg/dL (08:45) Chloride:??95 mmol/L??Low (08:45) Creatinine-Blood: 0.86 mg/dL (08:45) Estimated GFR Creatinine: 73 ML/MIN/1.73 M2 (08:45) Glucose Level:??150 mg/dL??High (08:45) Potassium: 4.1 mmol/L (08:45) Sodium:??130 mmol/L??Low (08:45) ?? Coagulation Profile?? No qualifying data available. ?? LFT?? No qualifying data available. ?? Urinalysis Est Creatinine Clearance: 44.88 mL/min (09:57) ? Cardiology Labs High Sensitivity Troponin (HSTnT): <6 (05/19/25 11:13:00) High Sensitivity Troponin (HSTnT): <6 (05/19/25 08:45:00) ?? Blood Gases?? No qualifying data available. ?? Uric/LDH?? No qualifying data available. ? EKG study * Event Display: ECG 12-Lead Authored Date: [id number] Please click on pdf link to open report * Event Display: ECG 12-Lead Authored Date: [id number] Ventricular Rate: 69 BPM Atrial Rate: 69 BPM P-R Interval: 174 ms QRS Duration: 84 ms Q-T Interval: 378 ms QTC Calculation(Bazett): 405 ms P Justice: 35 degrees R Justice: 15 degrees T Justice: 47 degrees Normal sinus rhythm Normal ECG When compared with ECG of 31-Dec-2024 13:14, No significant change was found Confirmed by MITCH NOEL ([id number]) on 05/19/2025 2:49:24 PM Mcdonough: MITCH NOEL Cardiology * Event Display: Treadmill Standard W/ Nuc Imaging Test Authored Date: [id number] Please click on pdf link to open report Hospital Progress note * Nacho Caro RN: PERFORM, SIGN, VERIFY Event Display: Progress Note Hospital Authored Date: [id number] Patient: BRIDGETT JERNIGAN Age: 69 years Sex: Female : 1955 Associated Diagnoses: None Author: Nacho Caro RN Patient resting in bed. Made comfortable. Call light within reach. Patient verbalized no chest discomfort at present. Breathing nonlabored with equal chest expansion. Patient alert, oriented x4. Patient denies shortness of breath. Patient verbalized no needs at present. Will continue to monitor patient. * Chino Bella RN: PERFORM, SIGN, VERIFY Event Display: Progress Note Hospital Authored Date: [id number] Patient: BRIDGETT JERNIGAN Age: 69 years Sex: Female : 1955 Associated Diagnoses: None Author: Chino Bella RN Met patient in bed on taking over. A+O x 3. Denies pain, nausea, vomiting, dizziness or SOB. Able to ambulate independently. Has telemonitor on as ordered, Informed she will be NPO after midnight andshe verbalized understanding, currently in bed, call carrillo within reach, told to request assistance as needed, will continue to monitor patient. Radiology * Event Display: NM Myocard Perf SPECT Multi Authored Date: [id number] Myocardial Perfusion Imaging Demographics Patient Name DELON URIAS Gender Female [employer] Room Number D320 Height 60 inches Date of 1955 Weight 165 pounds Age 69 year(s) BSA 1.72 m2 Accession Number [id number] BMI 32.22 kg/m2 Date of study 05/20/2025 Resident Referring Physician Unassigned Unassigned Interpreting Physician Audelia Santana NM Technologist Debra Cerna MD Procedure Procedure Type: Myocardial Perfusion Imaging:NM Myocardial Perfusion Spect Multi Indications: Chest pain. Risk Factors The patient risk factors include:hypercholesterolemia, hypertension, family history of premature CAD and diabetes mellitus. Stress Protocols Resting ECG Sinus bradycardia. Nonspecific ST-T wave changes. Resting HR:55 bpm Resting BP:124/62 mmHg Pre-stress physical exam: The patient's medications include AMLODIPINE, ASPIRIN, ATORVASTATIN, BUSPIRONE, CLOPIDOGREL, INSULIN, LISPRO, LOSARTAN, PANTOPRAZOLE and were not held prior to the test. Stress Protocol:Exercise - Sterling Peak HR:130 bpm HR response: Chronotropic Peak BP:178/58 mmHg Incompetence Predicted HR: 151 bpm HR recovery: Normal heart rate % of predicted HR: 86 recovery Test duration:7:30 min BP response: Normal resting BP with Reason for termination:Fatigue appropriate response Functional capacity:Good (above average) HR/BP product:49103 Max exercise: 9.3 METS Time of RP Injection:06:26 min Chest pain:No chest pain ST Changes:No significant ST changes Arrhythmias No arrhythmias. Stress Interpretation Normal Exercise Tolerance Test. Normal Exercise Physiology. No EKG evidence of ischemia. Imaging Protocols - One Day Rest Stress Isotope:Tc99m Sestamibi Isotope: Tc99m Sestamibi Isotope dose:10.2 mCi IV Isotope dose:30.6 mCi IV Date:05/20/2025 Date:05/20/2025 Time to Rest Imagin minutes Time to Stress Imagin minutes Technique: Gated Technique: Gated Supine Supine Perfusion Images Rest and Stress: +-------+---------+--------+----+---------+---------+ !Segment!Perfusion!Severity!Wall!Artifact !Artreason! +-------+---------+--------+----+---------+---------+ Rest: Segments: 1 -Normal 2 -Fixed 3 -Reversible 4 -Partialy reversible 5 -Scar 6 -Defect +-------+---------+--------+----+---------+---------+ !Segment!Perfusion!Severity!Wall!Artifact !Artreason! +-------+---------+--------+----+---------+---------+ Stress: +-------+---------+--------+----+---------+---------+ !Segment!Perfusion!Severity!Wall!Artifact !Artreason! +-------+---------+--------+----+---------+---------+ Imaging Results Summed scores - Summed stress score: 0 - Summed rest score: 1 Rest ejection Stress ejection Ejection fraction:74 % Ejection fraction:75 % EDV :86 ml EDV :75 ml ESV :22 ml ESV :19 ml Stroke volume :64 ml Stroke volume :56 ml LV mass :133 gr LV mass :124 gr Conclusions Summary 1. Myocardial perfusion imaging is normal without any fixed or reversible perfusion defect after exercise stress test at good (above average) functional capacity. 2. LV function is normal at rest and with stress, with normal wall motion and thickening. 3. EKG portion of the stress test is reported separately. This procedure is not being performed on this patient for preoperative evaluation for low-risk surgery within 30 days. Signatures * Event Display: NM Myocard Perf SPECT [facility] Authored Date: [id number] Note * Nacho Caro RN: PERFORM Event Display: Discharge/Transfer Note [facility] Authored Date: [id number] Nursing Discharge Note Entered On: 05/20/2025 15:41 EDT Performed On: 05/20/2025 15:41 EDT by Nacho Caro RN Nursing Discharge Note 2 Discharge Time : 05/20/2025 15:50 EDT Nacho Caro RN - 05/20/2025 15:50 EDT Discharge Level of Care at Discharge : Home/Detention/Foster Care Patient Left Unit Via : Wheelchair Patient Accompanied Off Unit with : Responsible adult DC Instructions Provided & Signed by Pt : Yes Patient Understands D/C Instructions : Yes Patient Instructions Discharge Signed : Yes Did Pt have Specialty Bed or Wound Vac : No Nacho Caro RN - 05/20/2025 15:41 EDT * Talia Singh MD: PERFORM, MODIFY Event Display: Discharge/Transfer Note Hospital Authored Date: [id number] Patient: ??BRIDGETT JERNIGAN ? Age:??69 Years?Sex:??Female?:??1955?? Patient Information Discharge Location: B Primary Care Physician: Not on Staff, PCP Admit Date/Time: 05/19/2025 08:18 Discharge Disposition Discharge Disposition: ?? Discharge Diagnosis Chest pain (R07.9) _ Discharge Medications Amlodipine (Norvasc 10 mg oral tablet)??10 Milligram 1 tablet By Mouth Daily Aspirin (aspirin 81 mg oral delayed release tablet)??81 Milligram 1 tablet By Mouth Daily Atorvastatin (Lipitor 40 mg oral tablet)??1 tab(s) 40 Milligram By Mouth Daily BusPIRone (busPIRone 5 mg oral tablet)??5 Milligram 1 tablet By Mouth Daily at bedtime Cetirizine (ZyrTEC 10 mg oral tablet)??1 tab(s) 10 Milligram By Mouth Daily Clopidogrel (Plavix 75 mg oral tablet)??75 Milligram 1 tablet By Mouth Daily Cyanocobalamin??1,000 Microgram By Mouth 2 times a day dapagliflozin (Farxiga 10 mg oral tablet)??1 tab(s) 10 Milligram By Mouth Daily Ferrous Sulfate (ferrous sulfate 324 mg (65 mg elemental iron) oral delayed release tablet)??1 tab(s) 324 Milligram By Mouth Daily Lecithin (lecithin 1200 mg oral capsule)??1 capsule 1,200 Milligram By Mouth Daily Loratadine??10 Milligram By Mouth Daily Losartan??100 Milligram By Mouth Daily Melatonin??7.5 Milligram By Mouth Daily at bedtime Metformin (metFORMIN 1000 mg oral tablet)??1 tab(s) 1,000 Milligram By Mouth 2 times a day Methocarbamol (methocarbamol 750 mg oral tablet)??2 tab(s) 1,500 Milligram By Mouth Daily as neededOther Metoprolol (metoprolol 25 mg oral tablet, extended release)??25 Milligram 1 tablet By Mouth Daily Naproxen??500 Milligram By Mouth Daily as needed Pain , Moderate Oktaha-3 Polyunsaturated Fatty Acids (Fish Oil)??1,200 Milligram By Mouth 2 times a day Pantoprazole (pantoprazole 40 mg oral delayed release tablet)??1 tab(s) 40 Milligram By Mouth Daily Ubiquinone (Co Q-10)??100 Milligram By Mouth Daily ? Medications Started none Medications Discontinued none Doses Changed none Allergies Allergies ?(Active and Proposed Allergies Only) gentamicin? (Severity: Unknown severity, Onset: Unknown) hydrochlorothiazide-lisinopril? (Severity: Unknown severity, Onset: Unknown) codeine? (Severity: Unknown severity, Onset: Unknown) sulfa drugs? (Severity: Unknown severity, Onset: Unknown) penicillin? (Severity: Unknown severity, Onset: Unknown) ? Hospital Course 69-year-old female??with past medical history of??coronary artery disease, hyperlipidemia, depression, hypertension, diabetes mellitus, GERD ?? Chest pain (R07.9) History of CAD (coronary artery disease) (Z86.79) ? Patient presented with complaint of chest pain.??Pulmonary embolism unlikely.??ACS ruled out. Patient had cardiac cath done??earlier this year??in December??2024.??Cardiac cath showed??first diagonal??with 95% stenosis??for which stent is placed.??Left main, LAD, circumflex with minimal irregularities.??RCA with 20 to 30% stenosis.??Also??showed??very small acute marginal??branch??with 90% ostial stenosis. Patient has been compliant with her medications. Will continue patient on aspirin Plavix and statin stress test no acute PCP f/u advised ? Hyponatremia (E87.1):??Mild and asymptomatic ? Today feels fine with no complaint. Having stable vitals. CTA BL, S1, S2 no GMR.Abd SOft, NT, BS+ve, AAO3. no pedal edema ? Objective . Physical Exam Pending Results No Pending Results Patient Education Titles [employer] Patient Education - Uncertain Causes of Chest Pain?? [employer] Patient Education - Uncertain Causes of Chest Pain?? Follow-Up Appointments Added Follow Up ?Time Frame ?Comments Please follow up with your eap counselor regularly Please follow-up with your primary care doctor within 1 to 2 weeks PCP Not on Staff Post Discharge Care Discharge ?05/20/25 14:07:00 EDT ?Order Comment:?? Home Health Face to Face ^HomeHealthFTF 33??minutes spent on discharge * Nacho Caro RN: PERFORM Event Display: Patient Education/Instruction Authored Date: [id number] Inpatient Adult Discharge Instructions. [address] [address] Name: BRIDGETT JERNIGAN : 1955?? Visit: 05/19/2025 08:18?? Current Date: 05/20/2025 14:45 ?? Account: [id number]?? Inpatient Adult Discharge Instructions We would like to thank you for allowing us to assist you with your healthcare needs. The following includes patient education materials and information regarding your injury/illness. Our entire staffstrives to provide an excellent experience for our patients and their families. PLEASE ENSURE YOU FOLLOW-UP PER THE INSTRUCTIONS BELOW! ?? YOUR OPINION IS IMPORTANT TO US! Please complete the survey you may receive by mail or email. Your feedback will be used to make improvements to the healthcare experiences of our patients and their families. Surveys are administered by [employer] ?? If further treatment with your primary care physician or another doctor is recommended, it is important for you to keep the appointment. Call your primary care physician or return to the Emergency Department immediately if your condition worsens, fails to improve, or new symptoms develop. If you need to find a doctor, you can call [facility] for a referral at [phone] or toll free at [phone] or log in to [email or web address] ?? [facility], in keeping with [facility] guidance, no longer requires face masks for staff, patientsor visitors in most situations. Similiar to time spent indoors at other locations, there is the chance that you were exposed to repiratory viruses during your time with us (such as flu or COVID-19). If you develop symptoms concerning for a viral respiratory infection, please seek testing (and treatment if indicated) from your medical provider or home test kit. ?? You can view and manage your care through the patient portal or by using a health care cynthia of your choosing. [employer] is a website that allows you to securely view your medical information including your hospital discharge summary, office visit summaries, medications and follow-up visits. You can also request appointments, renew medications, and request access to your medical information using a health care cynthia of your choosing, or just ask a question. You are entitled to know the individuals who participated in your treatment. This information is available within your medical record and will be provided upon your request. You can enroll at [email or web address] or register d uring your next office visit. You have been discharged from [facility], Patient Care Unit: D3B??. If you have any questions regarding these instructions, including results of studies pending, afteryou leave, please call us and we will be happy to assist you 29/05. [facility] Your Care Team Attending Physician Talia Singh MD?? Consulting Providers Talia Singh MD?? Discharging Providers Talia Singh MD Reason for Your Visit ACS r/o, mod risk CP?? Your Diagnosis Chest pain Chronic GERD Depression Diabetes mellitus General medical History of CAD (coronary artery disease) Hyperlipidemia Hypertension Hyponatremia Tests Performed Below is a partial list of the tests performed during your hospitalization. You may have had other tests and procedures not included in this list. Please discuss all test results with your provider. Basic Metabolic Panel CBC w/ Differential GLUCOSE POC High??Sensitivity??Troponin T Hold Blue Top Tube XR Chest 2 Views Frontal and Lat Basic Metabolic Panel?? CBC w/ Differential?? Glucose POC?? High??Sensitivity??Troponin T?? Hold Blue Top Tube?? Chest 2 Views Frontal and Lat (XR Chest 2 Views Frontal and Lat)?? Primary Care Provider Not on Staff, PCP?? Advance Directive Health Care Proxy on File No Patient refuses to discuss Discharge Vitals Temperature: 97.7 DegF Height: 153 cm Pulse Rate: 65 bpm Weight: 75 kg Respiratory Rate: 16 br/min Body Mass Index:??32.04 kg/m2??Critical Systolic Blood Pressure:??143 mm Hg??High Body surface area: 1.79 Diastolic Blood Pressure: 63 mm Hg ?? Oxygen Saturation: 95 % ?? Studies Pending All studies ordered during this hospital stay have been completed unless listed below. Please discuss all pending results with your provider listed above in these instructions. ?? No incomplete studies found?? What to do next Instructions From Your Doctor ?? Orders? 05/20/25 14:07:00 EDT?? You Need to Schedule the Following Appointments Follow Up with??Please follow up with your eap counselor regularly Follow Up with??Please follow-up with your primary care doctor within 1 to 2 weeks Follow Up with??PCP Not on Staff When:??In 0 days Discharge Medications BRIDGETT JERNIGAN :1955 Visit Date:05/19/2025 Medications: Please continue your medications until treatment is completed or stopped by your provider. Medications not listed below should be discontinued. Discuss any questions related to medications with your provider. What How Much When Instructions Next Dose Changed Cyanocobalamin 1,000 Microgram Oral Twice a day 05/20 5pm Changed Melatonin 7.5 Milligram Oral Daily at Bedtime 05/20 9pm Changed Naproxen 500 Milligram Oral Daily as needed for Pain , Moderate 05/20 as needed Changed Oktaha-3 Polyunsaturated Fatty Acids (Fish Oil) 1,200 Milligram Oral Twice a day 05/20 5pm Unchanged Amlodipine (Norvasc 10 mg oral tablet) 1 tab(s) Oral Daily 05/21 9am Unchanged Aspirin (aspirin 81 mg oral delayed release tablet) 1 tab(s) Oral Daily 05/21 9am Unchanged Atorvastatin (Lipitor 40 mg oral tablet) 1 tab(s) Oral Daily 05/20 9pm Unchanged BusPIRone (busPIRone 5 mg oral tablet) 1 tab(s) Oral Daily at Bedtime 05/20 9pm Unchanged Cetirizine (ZyrTEC 10 mg oral tablet) 1 tab(s) Oral Daily 05/20 5pm Unchanged Clopidogrel (Plavix 75 mg oral tablet) 1 tab(s) Oral Daily 05/21 9am Unchanged dapagliflozin (Farxiga 10 mg oral tablet) 1 tab(s) Oral Daily 05/20 5pm Unchanged Ferrous Sulfate (ferrous sulfate 324 mg (65 mg elemental iron) oral delayed release tablet) 1 tab(s) Oral Daily 05/20 5pm Unchanged Lecithin (lecithin 1200 mg oral capsule) 1 capsule Oral Daily 05/20 5pm Unchanged Loratadine 10 Milligram Oral Daily 05/20 5pm Unchanged Losartan 100 Milligram Oral Daily 05/21 9am Unchanged Metformin (metFORMIN 1000 mg oral tablet) 1 tab(s) Oral Twice a day 05/20 5pm Unchanged Methocarbamol (methocarbamol 750 mg oral tablet) 2 tab(s) Oral Daily as needed for Other 05/20 as needed Unchanged Metoprolol (metoprolol 25 mg oral tablet, extended release) 1 tab(s) Oral Daily 05/21 9am Unchanged Pantoprazole (pantoprazole 40 mg oral delayed release tablet) 1 tab(s) Oral Daily 05/21 9am Unchanged Ubiquinone (Co Q-10) 100 Milligram Oral Daily 05/20 5pm Prescription Given During Visit No new medications prescribed at time of discharge.?? Laboratory Results Below is a partial list of the most recent Laboratory test results done prior to this discharge. You may have had other tests and procedures not included in this list. Please discuss all test resultswith your provider. Est Creatinine Clearance - 44.88 mL/min (05/19/2025) Basic Metabolic Panel (05/19/2025) ???Sodium - 130 mmol/L???Potassium - 4.1 mmol/L???Chloride - 95 mmol/L???Bicarbonate Level - 23 mmol/L???Anion Gap - 12 mmol/L???Glucose Level - 150 mg/dL???BUN - 29 mg/dL???Creatinine-Blood - 0.86 mg/dL???Estimated GFR Creatinine - 73 ML/MIN/1.73 M2???Calcium - 10.0 mg/dL CBC w/ Differential (05/19/2025) ???WBC - 6.6 k/mm3???RBC - 4.63 m/mm3???Hgb - 14.1 Gm/dL???Hct - 42.1 %???MCV - 90.9 femtoliters???MCH - 30.5 pg???MCHC - 33.5 Gm/dL???Platelet Count - 279 k/mm3???RDW-SD - 38.9 femtoliters???MPV - 8.7 femtoliters???Nucleated RBC (Automated) - 0.0 #/100 WBC'S???Abs. NRBC - 0.0 k/mm3???Abs. Neut - 4.4 k/mm3???Abs. Lymph - 1.3 k/mm3???Abs. Union - 0.6 k/mm3???Abs. Eo - 0.2 k/mm3???Abs. Baso - 0.1 k/mm3???Neut % - 66.3 %???Lymph % - 20.2 %???Union % - 8.9 %???Eos % - 3.1 %???Baso % - 1.2 %???Imm Gran - 0.3 %???Abs. Imm Gran - 0.0 k/mm3 GLUCOSE POC (05/20/2025) ???Glucose, POC - 187 mg/dL High??Sensitivity??Troponin T (05/19/2025) High Sensitivity Troponin (HSTnT) - <6 ng/L Hold Blue Top Tube (05/19/2025) ???Hold Blue Top - SPECIMEN DISCARDED AFTER 4 HOURS. You will be contacted within 72 hours with your results. Allergies (NKA means No Known Allergies) codeine gentamicin hydrochlorothiazide-lisinopril penicillin sulfa drugs Problems Active Problems??(1) Obese class I?? Education Materials Below is the list of Educational Leaflet Providered with your Discharge Instructions. WebMD Ignite Patient Education - Discharge Instructions for Angina?? WebMD Ignite Patient Education - Uncertain Causes of Chest Pain?? WebMD Ignite Patient Education - Uncertain Causes of Chest Pain?? Valuables and Belongings I fully understand and agree that [facility] accepts no responsibility for all my personal property including clothing, toilet articles, radios, jewelry, dentures, hearing aids, rings, money, or any other property that is in my possession or is brought to me after admission. I understand certain valuables may be placed in a hospital safe for a short period of time. I understand that the hospital is not liable for loss or damage due to accident, fire, or other natural occurrence while said property is in the safe. I accept full responsibility for any personal property that I keep with me, and will not hold the hospital responsible in case of loss or disappearance. I acknowledge that i have been encouraged to send valuables and belongings home. ?? Review of Valuable and Belonging List: With patient Date for Pt to Sign Valuables/Belongings: 05/19/25 14:20:00 ?? Other Discharge Information ? Pulmonary Rehab Status?? Pulmonary Rehab Discharge Status?? Respiratory Rate: 16 br/min ? Common Emergency Awareness Tips IS IT A STROKE? Act FAST and Check for these signs: FACE Does the face look uneven? ARM Does one arm drift down? SPEECH Does their speech sound strange? TIME Call at any sign of stroke ?? Heart Attack Signs Chest discomfort: Most heart attacks involve discomfort in the center of the chest and lasts more than a few minutes, or goes away and comes back. It can feel like uncomfortable pressure, squeezing, fullness or pain. Discomfort in upper body: Symptoms can include pain or discomfort in one or both arms, back, neck, jaw or stomach. Shortness of breath: With or without discomfort. Other signs: Breaking out in a cold sweat, nausea, or lightheaded. Remember, MINUTES DO MATTER. If you experience any of these heart attack warning signs, call to get immediate medical attention! ?? Smoking can increase your chances of developing chronic health problems and can cause harmful effects to other family members in your house. If you smoke, you are strongly encouraged to quit. Please call [facility] at [phone] or [phone] ([phone]) or log in to [email or web address] for referrals to smoking cessation programs. ?? 065 Suicide & Crisis Lifeline is available 29/05 if you or someone you know needs to find a reason to keep living. By calling 966 you'll be connected to a skilled, trained counselor at a crisis center in your area. INPATIENT DISCHARGE INSTRUCTIONS SIGNATURE PAGE BRIDGETT JERNIGAN Location:[facility] Registration Date and Time:05/19/2025 08:18 EDT Primary Care Physician: Not on Staff, PCP Attending Physician: Samantha MARTINEZ, [facility], I BRIDGETT JERNIGAN, have received the above patient education materials/instructions and have verbalized understanding. If ambulance or transport services are being used I further acknowledge being given a choice of service. ?? If you need to contact me, please call me at this number: . Patient/Campaign Analyst Name: Patient/Campaign Analyst Signature: Relationship to Patient: Witness Name/Signature: Date: * Talia Singh MD: PERFORM, SIGN, VERIFY Event Display: Patient Education Handout Authored Date: [id number] * Nacho Caro RN: PERFORM Event Display: Patient Education Leaflets Authored Date: [id number] Discharge Instructions for Angina ?? [address] Discharge Instructions for Angina You have been diagnosed with a type of chest pain called angina.??Angina occurs when your heart muscle doesn't get enough oxygen. It's most often felt under your breastbone, in your left shoulder, ordown your left arm. The pain may even spread to your jaw or back. Women may experience discomfort in different areas. Exercise, increased activity, emotional upset, or stress can trigger this pain. With proper treatment and lifestyle changes to reduce risk factors, most people with angina are able to maintain a full and active life. Managing risk factors Your healthcare provider will work with you to make lifestyle changes as needed. This can help prevent coronary artery disease from getting worse, which is likely the cause of your angina. Coronary artery disease is a narrowing of the blood vessels that supply oxygen and nutrients to theheart muscle. The blood vessels can also spasm and reduce the oxygen reaching the heart muscle fromthe narrowing inside of the artery. Managing your risk factors may prevent both of these causes of the narrowing of your arteries. ?? Diet Your healthcare provider will give you information on dietary changes that you may need to make, based on your situation. Your provider may recommend that you see a registered dietitian for help withdiet changes. Try these changes to start:? Eat less fat and cholesterol ??? Eat less salt (sodium), especially if you have high blood pressure? Eat more fresh vegetables and fruits? Eat lean proteins, such as fish, poultry, and legumes (beans and peas), and eat less red meat and processed meats ??? Use low-fat dairy products? Use vegetable and nut oils in limited amounts? Limit sweets and processed foods, such as chips, cookies, and baked goods ??? Limit sodas and high calorie drinks ??? Limit greasy and fried foods, or those high in saturated fat ??? Limit alcohol intake ?? Physical activity Your healthcare provider may recommend that you increase your physical activity if you have not been as active as possible. This may include moderate to vigorous intensity physical activity for at least 30 to 60 minutes each day for 5 to 7 days per week. A few examples of moderate to vigorous intensity physical activity include:? Walking at a brisk pace, about 3 to 4 miles per hour ??? Jogging or running ??? Swimming or water aerobics ??? Hiking ??? Dancing ??? Martial arts ??? Tennis ??? Riding a bike Don't start or increase your activity level without first seeing your healthcare provider. Follow your healthcare provider's directions for your amount and intensity of exercise. ?? Weight management If you are overweight, your healthcare provider will work with you to lose weight and lower your BMI (body mass index) to a normal or near-normal level. Making diet changes and increasing physical activity can help. A healthy and reasonable goal for weight loss is to lose 10% of your current weightper year. ?? Smoking If you smoke or use other tobacco products including chewing tobacco or electronic cigarettes (vaping), get help to quit. Enroll in a stop-smoking program to improve your chances of success. You can also join a support group. Talk to your healthcare provider about nicotine replacement products or me dicines to help you quit. ?? Stress Learn ways to manage stress to help you deal with stress in your home and work life. Your ability to place importance on your health depends on your mental health and focus. Feeling supported in the rest of your life is ewing to achieving success with your health. ?? Managing medicines ??? Keep a record of your episodes of chest pain. Take these with you when you see your healthcare provider. ??? Take your medicines exactly as directed. Don???t skip doses. If youmiss a dose, call your healthcare provider right away. ??? If you have unwanted side effects from your medicine, tell your healthcare provider right away. ?? Taking nitroglycerin ??? Keep your nitroglycerin with you at all times. ??? If you???re on nitroglycerin, don???t take medicines used to treat erectile dysfunction, such as sildenafil or tadalafil, at all. These can react with nitroglycerin and cause your blood pressure to drop dangerously low. ???If you use nitroglycerin to prevent angina attacks, follow your healthcare provider???s directions for your kind of nitroglycerin (pill, spray,??or skin patch). ??? If you use nitroglycerin to stop an angina attack, follow these steps: o Sit down, because you may become dizzy. o Put??1 tablet underyour tongue, or between your lip and gum, or between your cheek and gum. Let the tablet dissolve completely. Don't chew or swallow the tablet. o If you use a spray, then spray once on or??under your tongue. Don't inhale. Close your mouth. Wait a few seconds before you swallow and don't rinse your mouth for??5 to 10 minutes. o After taking??1 tablet or spraying once, continue sitting for 5 minutesto make sure you feel well enough to stand up. o If the angina goes away completely, rest awhile and follow your healthcare provider's directions about returning to your normal routine. o If the??chest pain or pressure??continues, call 911 right away. Don't delay. You may be having a heart attack (acute myocardial infarction, or AMI)! Don't drive yourself to the hospital if you think you are having a heart attack as this poses a risk to yourself and other drivers on the road. Take an ambulance.o You may be told by your provider to call 911 after taking 2 or 3 tablets or sprays of nitroglycerin (spaced 5 minutes apart) and the chest pain or pressure is still present 5 minutes after the lastdose. Don't take more than 3 tablets, or spray more than 3 times, within 15 minutes.? Call 911 This is the fastest and safest way to get to the nearest emergency department. The paramedics can also start treatment on the way to the hospital, saving valuable time for your heart. ??? If angina gets worse, it continues, or if it stops and returns, call 911 right away. Don't delay. You may be having a heart attack. Don't wait until your symptoms are severe to call 911. Other reasons to call 911 besides chest paininclude: ??? Trouble breathing ??? Feeling lightheaded, faint, or dizzy ??? Rapid heartbeat ??? Slower than usual heart rate compared to your normal ??? Angina with weakness, dizziness, fainting, heavy sweating, nausea, or vomiting ??? Extreme drowsiness, or confusion ??? Weakness of an arm or leg or on one side of the face ??? Trouble with speech or vision ?? Last Reviewed Date: 2022 00:00:00 ?? 2515-1415 [employer]. All rights reserved. This information is not intended as a substitute for professional medical care. Always follow your healthcare professional's instructions. ?? * Talia Singh MD: PERFORM Event Display: Patient Education Leaflets Authored Date: [id number] Uncertain Causes of Chest Pain ?? [id number] Uncertain Causes of Chest Pain Chest pain can happen for a number of reasons. Sometimes the cause can't be found. If you've been checked by your health care provider and your??condition does not seem serious, and if your pain doesnot appear to be coming from your heart, your provider may recommend closely watching for any symptoms. Sometimes the signs of a serious problem take more time to appear. Many problems not related toyour heart can cause chest pain, such as: ??? Musculoskeletal problems. These include costochondritis (an inflammation of the tissues around the ribs that can occur from trauma or overuse injuries) and a strain of the chest wall muscles. ???Respiratory problems. These include pneumonia, collapsed lung (pneumothorax), and inflammation of the lining of the chest and lungs (pleurisy). ??? Gastrointestinal problems. These include esophagealreflux, heartburn, ulcers, and gallbladder disease. ??? Anxiety and panic disorders. ??? Nerve compression and inflammation. ??? Rare problems, such as aortic aneurysm or aortic dissection (a swelling of the large artery coming out of the heart or a tear in the wall of the artery), and pulmonary embolism (a blood clot in the lungs). Home care After your visit, make sure to: ??? Rest today, and stay away from strenuous activity. ??? Take anyprescribed medicine as directed. ??? Be aware of any chest pain that comes back, and notice any changes. ?? Follow-up care Follow up with your health care provider if you don't start to feel better within 24 hours, or as advised. ?? Call 911 Call 911 if you have: ??? A change in the type of pain. It may feel different, become more severe, last longer, or begin to spread into your shoulder, arm, neck, jaw, or back. ??? Shortness of breathor increased pain with breathing. ??? Weakness, dizziness, or fainting. ??? A rapid heartbeat. ??? A crushing feeling in your chest. ??? Coughing up more than a small amount of blood. ?? When to get medical advice Call your health care provider or get medical care right away if you have: ??? A cough with dark colored sputum (phlegm) or small amount of blood. ??? A fever of 100.4??F??(38??C) or higher, or as directed by your provider. ??? Swelling, pain, or redness in one leg. ?? Last Reviewed Date: 2024 00:00:00 ?? 1595-4992 [employer]. All rights reserved. This information is not intended as a substitute for professional medical care. Always follow your healthcare professional's instructions. ?? * Larisa Shetty: PERFORM Event Display: Patient Education Leaflets Authored Date: [id number] Uncertain Causes of Chest Pain ?? [id number] Uncertain Causes of Chest Pain Chest pain can happen for a number of reasons. Sometimes the cause can't be found. If you've been checked by your health care provider and your??condition does not seem serious, and if your pain doesnot appear to be coming from your heart, your provider may recommend closely watching for any symptoms. Sometimes the signs of a serious problem take more time to appear. Many problems not related toyour heart can cause chest pain, such as: ??? Musculoskeletal problems. These include costochondritis (an inflammation of the tissues around the ribs that can occur from trauma or overuse injuries) and a strain of the chest wall muscles. ???Respiratory problems. These include pneumonia, collapsed lung (pneumothorax), and inflammation of the lining of the chest and lungs (pleurisy). ??? Gastrointestinal problems. These include esophagealreflux, heartburn, ulcers, and gallbladder disease. ??? Anxiety and panic disorders. ??? Nerve compression and inflammation. ??? Rare problems, such as aortic aneurysm or aortic dissection (a swelling of the large artery coming out of the heart or a tear in the wall of the artery), and pulmonary embolism (a blood clot in the lungs). Home care After your visit, make sure to: ??? Rest today, and stay away from strenuous activity. ??? Take anyprescribed medicine as directed. ??? Be aware of any chest pain that comes back, and notice any changes. ?? Follow-up care Follow up with your health care provider if you don't start to feel better within 24 hours, or as advised. ?? Call 911 Call 911 if you have: ??? A change in the type of pain. It may feel different, become more severe, last longer, or begin to spread into your shoulder, arm, neck, jaw, or back. ??? Shortness of breathor increased pain with breathing. ??? Weakness, dizziness, or fainting. ??? A rapid heartbeat. ??? A crushing feeling in your chest. ??? Coughing up more than a small amount of blood. ?? When to get medical advice Call your health care provider or get medical care right away if you have: ??? A cough with dark colored sputum (phlegm) or small amount of blood. ??? A fever of 100.4??F??(38??C) or higher, or as directed by your provider. ??? Swelling, pain, or redness in one leg. ?? Last Reviewed Date: 2024 00:00:00 ?? [employer]. All rights reserved. This information is not intended as a substitute for professional medical care. Always follow your healthcare professional's instructions. ?? Patient Care team information Care Team Personnel Name: Nacho Caro RN Position: [facility] RN Member Role: Primary Care Nurse Name: Not on Staff, PCP Position: [facility] Physician (General Medicine) Member Role: PCP Name: Shannon Gomez RN Position: S RN Member Role: Primary Care Nurse Insurance Providers Guarantor name: JENN [employer] Plan Information #: 1 Payer: [facility] Payer Identifier: JENN Member Number: [id number] Group Number: [id number] Subscriber Identifier: [id number] Relationship to Subscriber: self Coverage Type: Medicare HMO Coverage Verification Date: JENN Telecom: JENN Address:
--- NOTE | 2025-05-22 09:00 | A.OFFVIS_ITS ---
Intake Visit Reasons: urinary incontinence Intake Note: New Patient presents for initial visit for urinary incontinence Urology Medications: none Blood Thinner: clopidogrel, aspirin PVR: 147ml's Radar Repairer Required: No Accompanied by: Self / Same As Patient Allergies lisinopril Allergy (Severe, Verified 05/22/25 09:37) Anaphylaxis Penicillins Allergy (Severe, Verified 05/22/25 09:37) Unknown Sulfa (Sulfonamide Antibiotics) Allergy (Severe, Verified 05/22/25 09:37) Unknown adhesive Allergy (Intermediate, Verified 05/22/25 09:37) red patches gentamicin Allergy (Unknown, Verified 05/22/25 09:37) Itching Medication List - Last Reconciled 05/22/25 by JAKE Muniz amlodipine 10 mg PO DAILY aspirin 81 mg PO DAILY atorvastatin 40 mg PO BEDTIME blood sugar diagnostic (OneTouch Verio test strips) TEST BLOOD SUGAR 3 TIMES A DAY blood sugar diagnostic (Blood Glucose Test strips) As directed buspirone 5 mg PO DAILY citalopram 10 mg PO DAILY clobetasol 0.05% 1 appl topical BID clopidogrel (Plavix) 75 mg PO DAILY cyanocobalamin (vitamin B-12) 2,000 mcg PO DAILY dapagliflozin propanediol (Farxiga) 10 mg PO DAILY ferrous sulfate 325 mg PO DAILY lancets (OneTouch Delica Plus Lancet) POC testing TID losartan 100 mg PO DAILY magnesium 500 mg PO DAILY mecobalamin (vitamin B12) (B12 Active) 2,000 mcg (2 x 1,000 mcg) PO DAILY metformin 1,000 mg PO BID methocarbamol 750 mg PO NEEDED metoprolol succinate ER 25 mg PO DAILY naproxen 500 mg PO BID nitroglycerin 0.4 mg sublingual Q5M PRN pantoprazole 40 mg PO USEASDIRECTD polyethylene glycol 3350 (Miralax) 17 grams PO DAILY psyllium husk (Fiber (psyllium husk)) 0.4 grams PO DAILY HPI Comments Details: Heidi is a 69-year-old female patient of Dr. Ordonez. She has a past medical history of type 2 diabetes, nonalcoholic fatty liver disease, anxiety, hypertension, and cognitive disorder. She presents to the office today as a new patient for urge incontinence. In discussion with the patient today she reports a previous history of urethral dilation many years ago at the age of 20-21 for ongoing issue she was experiencing with hematuria. She reports she had been doing well up until a few years ago when she started experiencing issues with urge incontinence however feels more recently they have been worsening. She reports she does not always need to utilize Idalmis pads or adult diapers however she feels this is bothersome to her. She does report 1 previous vaginal of her daughter. She denies urinary urgency, urinary frequency, nocturia, hematuria, dysuria, foul smelling urine, changes to urinary stream, flank pain, fever, and or chills. She discusses her life as a grandparent and her who follows up with Dr. Rose here for his ongoing prostate cancer. We did discussed potential causes of urge incontinence as well as further treatment options and risks and benefits of these treatment options. In office urinalysis results reviewed with the patient today. PVR 147 mL. In review of patient's chart it appears A1c is are as follows: 11/30 6.4, 03/30 5.8 We did discussed pelvic floor therapy however she discusses currently undergoing cardiac rehab and asked to pay a 35 dollar co-pay twice a week therefore she is not interested at this time. She also discusses her reluctancy in taking medications in does not wish to trial medications at this time. All questions were answered. She otherwise offers no other issues or concerns at this time. [facility] Medical History Cognitive disorder Non-alcoholic fatty liver disease Exhaustion Memory change Anxiety Hypertension Diabetes Abnormal colonoscopy Surgical History S/P cardiac cath History of colonoscopy (~2014) H/O eye surgery H/O cervical spine surgery History of back surgery H/O elbow surgery H/O wrist surgery H/O section Family History Sister Mental health disorder Substance abuse Cardiovascular disease Hypertension Thyroid disease Advancing dementia Brother Cancer Cardiovascular disease Hypertension Paternal Grandfather Cancer Father Cardiovascular disease Hypertension Mother Hypertension Daughter Thyroid disease Social History Household Members: Spouse Both parents involved: No Caregiver staying overnight: No Housing: House Are you a primary health care consultant to a significant other at home: No Do you presently have visiting nurse or other home services: No 75 years or older and lives alone: No Alcohol intake: former Patient Tobacco Use Status: Never used Tobacco e-Cigarette/Vaping Use: Never Used Second Hand Smoke Exposure: No service: No Current occupational status: retired Cognitive needs: No Hearing needs: No Vision needs: No Review of Systems Eyes Reports no additional complaints ENT Reports no additional complaints Card Reports as per HPI Resp Reports no additional complaints GI Reports no additional complaints Reports as per HPI Musc Reports no additional complaints Neuro Reports as per HPI Psych Reports as per HPI Endo Reports as per HPI Teo/Lymph Reports no additional complaints Aller/Immun Reports no additional complaints Physical Exam Const General: cooperative, healthy appearing, comfortable, no acute distress, well developed, alert and awake Orientation/consciousness: patient oriented x3 Limitations: no limitations HEENT Head: Yes normal to inspection, Yes normocephalic and Yes atraumatic Ears: hearing grossly normal bilaterally Eyes General: appearance normal, both eyes and all related structures Neck Neck: Yes normal visual inspection and Yes trachea midline Chest Chest palpation & inspection: normal inspection of the chest Resp Effort & Inspection: normal respiratory effort and able to speak in complete sentences Cardio Rate: regular rate GI Inspection: Yes normal to inspection General: Yes no CVA tenderness Back/Spine/Pelvis Back: no CVA tenderness Skin General skin exam: no rashes or lesions noted Neuro General: patient oriented x3 Extrem General: Yes normal to inspection Psych Appearance: grossly normal and well kempt Mental Status: mental status grossly normal Speech and movement: Normal speech and movement present and Clear speech present Affect: normal affect Attitude: cooperative Thought process: Normal thought process present Thought content: Normal thought content present Insight: Fair insight present (Psych) Judgement: Fair judgement present (Psych) Office Procedures Post Void Residual Post Residual Void Post Void Residual (PVR): [id number] Void Residual by ultrasound Results AMB Urinalysis, Automated UA Leukoctes 0 Chelita/uL Last Edit by Erumgregoria Greyhue, [facility] on 05/22/25 09:25 UA Nitrite Last Edit by Renny Grey, [facility] on 05/22/25 09:25 UA Urobilinogen 0.2 mg/dL Last Edit by Renny Grey, [facility] on 05/22/25 09:2 5 UA Protein 0 mg/dL Last Edit by Renny Grey, [facility] on 05/22/25 09:25 UA pH 7.0 Last Edit by Renny Grey, [facility] on 05/22/25 09:25 UA Blood 0 Guillermo/uL Last Edit by Louisgregoria Grey, [facility] on 05/22/25 09:25 UA Specific [place] 1.005 Last Edit by Renny cM, [facility] on 05/22/25 09: 25 UA Ketone Last Edit by Renny Grey, [facility] on 05/22/25 09:25 UA Bilirubin 0 mg/dL Last Edit by Renny Mc, [facility] on 05/22/25 09:25 UA Glucose 1000 mg/dL Last Edit by Renny Grey, [facility] on 05/22/25 09:25 Results Reviewed Results Reviewed: Laboratory Last Values Urine pH (Auto) 7.0 05/22/25 09:23 Specific [place] (Auto) 1.005 05/22/25 09:23 Urine Protein (Auto) 0 mg/dL 05/22/25 09:23 Glucose (UA)(Auto) 1000 mg/dL 05/22/25 09:23 Urine Blood (Auto) 0 Guillermo/uL 05/22/25 09:23 Urine Bilirubin (Auto) 0 mg/dL 05/22/25 09:23 Urine Urobilinogen (Auto) 0.2 mg/dL 05/22/25 09:23 Leukocyte Esterase (Auto) 0 Chelita/uL 05/22/25 09:23 Assessment & Plan Assessment & Plan (1) Urinary incontinence: Code(s): R32 - Unspecified urinary incontinence Category: Medical Qualifiers: Urinary Incontinence type: continuous leakage Qualified Code(s): N39.45 - Continuous leakage (2) Incomplete bladder emptying: Code(s): R33.9 - Retention of urine, unspecified Category: Medical Plan In office urinalysis results with the patient today; as noted above. PVR 147 mL. Will obtain retroperitoneal ultrasound for further assessment evaluation. We did discussed potential causes of urge incontinence as well as further treatment options and risks and benefits of these treatment options. We did discussed attempting to double void to assist with bladder emptying. Schedule for next available in office urodynamics for further assessment evaluation with imaging to be completed prior. We did discussed the importance of continuing to manage diabetes for overall urological health as well as overall health and well-being. Follow-up per doctor's orders; or sooner with any issues, concerns, and or questions. Orders: Orders AMB Post Void Residual by ultrasound Today N39.45 - Continuous leakage AMB Urinalysis Automated Today Z13.9 - Encounter for screening, unspecified US retroperitoneal comp Today N39.41 - Urge incontinence Patient Instructions: The patient had an opportunity to ask questions regarding the treatment plan. All questions were answered. Physical exam, labs, and imaging were discussed and reviewed in detail. As well as risks, benefits, and discussion of treatment choices. No major barriers to understanding were identified. The patient expressed understanding and agreement with the above treatment plan. The patient was made aware they should contact our office by phone for worsening of their current condition, the appearance of new symptoms, or with any que stions or concerns. Compliance is encouraged with any medications and follow up testing that is ordered. It is a privilege to be allowed the opportunity to participate in? your urological care.? Again, if you have any questions or concerns If you have any questions or concerns please do not hesitate to contact me. The office is [phone]. This note is constructed using voice recognition software. While every effort has been made to ensure accuracy soda maker errors may have been included. Yours sincerely, MISA Muniz Coding Level of Care Code New Pt Level 3 (39998) Diagnoses Continuous leakage of urine N39.45 Urinary Incontinence type: continuous leakage Incomplete bladder emptying R33.9 CPT Codes Post Residual Void - PVR CPT Code: 76584-Uonh Void Residual by ultrasound ([id number])
--- OUTSIDE RECORDS SUMMARY | 2025-05-22 09:05 | XMS_ITS | Clinical Summary ---
Author Organization [facility] Address [address] [place] [address] Care Team Providers Care Green Chain Marker Name Role Phone Ngoc Ordonez APRN Primary Care Provider + Beau Hays MD Unavailable [phone] Allergies Active Allergy Reactions Criticality Noted Date [...] Years Used Date Smoking Tobacco: Never Assessed [facility] Utilities Answer Date Recorded In the past 12 months has AFAR, VOZ, oil, or water [employer] threatened to shut off services in your [...] were you homeless or living in a custodial (including now)? No 12/25/2024 Comments Unknown Sex [...] this topic Medical Devices Implanted Type Area Roll Up Machine Operator Device Identifier Shelf Expiration Date Model / Serial / Lot [id number] Coronary Stent System Synergy Xd Mr 2.25mm 16mm Delivery s - [id number] Implanted:Qty : 1 on 12/24/2024 by Santosh Brady MD at [facility] Stent N/A: Coronary [employer] [id number] 02/20/2026 [id number] / / [id number] Procedures Procedure Name Priority Date/Time Associated Diagnosis [...] A1C 6.5(H) <5.7 % 12/25/2024 5:38 PM [facility] Comment: A1c% Interpretation 5.7 - 6.0 Increase risk of diabetes 6.1 - 6.4 Higher risk of diabetes > or = 6.5 Consistent with diabetes Diabetes Care, 33(Supp 1):S1-S61, 2010 Estimated Average Glucose 140 mg/dL 12/25/2024 5:38 PM [facility] Blood Blood specimen / Unknown 12/25/2024 8:00 AM EST 12/25/2024 8:12 AM EST Keenan Arreguin MD LAB BLOOD ORDERABLES [place] [address], [address] [address] * (ABNORMAL) LIPID PANEL (12/25/2024 5:33 AM EST) Cholesterol, Total 168 <200 mg/dL 2024 8:24 AM EST [facility] Triglycerides 135 <150 mg/dL 12/25/2024 8:24 AM EST [facility] Cholesterol, HDL 43(L) >60 mg/dL 12/25/19 8:24 AM EST [facility] Estimated LDL 98 <130 mg/dL 12/25/2024 8:24 AM EST [facility] Comment: NCEP Guidelines: < 100 mg/dL Optimal 100 - 129 mg/dL Near Optimal/Above Optimal 130 - 159 mg/dL Borderline High 160 - 189 mg/dL High >/= 190 mg/dL Very High Cholesterol/HDL Ratio 3.9 0.0 - 5.0 Ratio 12/25/2024 8:24 AM EST [facility] Comment: Relative Risk Ratio - Male Ratio - Female 0.5 3.4 3.3 1.0 5.0 4.4 2.0 9.6 7.1 3.0 23.4 11.0 Plasma/Serum 12/25/2024 5:33 AM EST 12/25/2024 6:08 AM EST us Kristina PETERS LAB BLOOD ORDERABL ES Final Result [facility] [address] [place] [address], * (ABNORMAL) Comprehensive Metabolic Panel (12/25/2024 5:33 AM EST) Glucose 131(H) 74 - 106 mg/dL 12/25/2024 6:35 AM EST [facility] Comment:Fasting: <100 mg/dL, Non-Fasting: <200 mg/dL (ADA 2005) Blood Urea Nitrogen (BUN) 10 9 - 23 mg/dL 12/25/2024 6:35 AM EST [facility] Creatinine 0.9 0.6 - 1.0 mg/dL 12/25/2024 6:35 AM EST [facility] eGFR 69 >59 12/25/2024 6:35 AM EST [facility] Comment:CKD-EPI (2020) in mL /min/1.73 sq meters. Sodium 139 136 - 145 mmol/L 12/25/2024 6:35 AM EST [facility] Potassium 4.4 3.4 - 4.5 mmol/L 12/25/2024 6:35 AM EST [facility] Chloride 107 98 - 107 mmol/L 12/25/2024 6:35 AM EST [facility] CO2 24 20 - 31 mmol/L 12/25/2024 6:35 AM EST [facility] Calcium 10.1 8.7 - 10.5 mg/dL 12/25/2024 6:35 AM EST [facility] Alkaline Phosphatase 125(H) 32 - 122 U/L 12/25/2024 6:35 AM EST [facility] Aspartate Aminotrans (AST) 79(H) <34 U/L 12/25/2024 6:35 AM EST [facility] Alanine Aminotrans (ALT) 98(H) 7 - 35 U/L 12/25/2024 6:35 AM EST [facility] Bilirubin, Total 0.6 0.3 - 1.2 mg/dL 12/25/2024 6:35 AM EST [facility] Protein, Total 7.5 5.7 - 8.2 g/dL 12/25/2024 6:35 AM EST [facility] Albumin 4.6 3.4 - 4.8 g/dL 12/25/2024 6:35 AM EST [facility] BUN/Creatinine Ratio 11 10.0 - 25.0 Ratio 12/25/2024 6:35 AM EST [facility] Globulin 2.9 1.5 - 3.9 g/dL 12/25/2024 6:35 AM EST [facility] Albumin/Globulin Ratio 1.6 1.5 - 2.5 Ratio 12/25/2024 6:35 AM EST [facility] Anion Gap 8 5 - 15 12/25/2024 6:35 AM EST [facility] Blood (Plasma/Serum) 12/25/2024 5:33 AM EST 12/25/2024 6:08 AM EST us Kristina PETERS LAB BLOOD ORDERABL ES Final Result [facility] [address] [place] [address], from Last 3 Months or Most Recently Relevant to Health Maintenance Insurance OUT STATE - PPO Advance Directives * Full Code (Latest Code Status on File) Date Activated Date Inactivated Comments 12/24/2024 1:32 PM Care Teams Green Chain Marker Relationship Specialty Start Date End Date Ngoc Ordonez APRN [address] [place] [address] PCP - General Family Medicine 12/24/24 Beau Hays MD [address] [place] [address] Primary Convex Grinder Operator Cardiovascular Disease 01/07/25
== END 2025-05-22 09:47 | disposition home or self-care (01) ==
LOC: HO.HUSH 08:50
PROVIDERS: PCP Nurse Practitioner Family; Visit Provider Nurse Practitioner Family
DX: N39.45 Continuous leakage (principal); R33.9 Retention of urine, unspecified; Z13.9 Encounter for screening, unspecified
CPT/HCPCS: 99203

== ENCOUNTER → 2025-05-22 08:48 | Outpatient (BNVA) | payer MEDICARE, SELFPAY | PROVIDERS: PCP Nurse Practitioner Family; Visit Provider Nurse Practitioner Family | DX: N39.45 Continuous leakage (principal); R33.9 Retention of urine, unspecified | CPT/HCPCS: 51798; 81003; 99202 ==

== ENCOUNTER 2025-05-29 11:20 | Outpatient (AMB) | payer MEDICARE, SELFPAY ==
--- NOTE | 2025-05-29 11:30 | A.OFFPC_ITS ---
Vital Signs 3 05/29/25 11:37 Height 5 ft Weight 170 lb BMI 33.2 BP 109/59 L Blood Pressure Location Lt brachial Position Sitting Respiration 16 Pulse 72 Pulse Source Pulse Oximeter Temp 98.3 F Temp Source Oral Pulse Oximetry (%) 94 Oxygen Delivery Method Room Air Intake Visit Reasons: [facility] Discharge Follow-Up Intake Note: patient here for [facility] follow up Numerical Analysis Group Manager Required: No Is last menstrual period known: No Post menopausal: No Patient : No Allergies lisinopril Allergy (Severe, Verified 05/29/25 11:51) Anaphylaxis Penicillins Allergy (Severe, Verified 05/29/25 11:51) Unknown Sulfa (Sulfonamide Antibiotics) Allergy (Severe, Verified 05/29/25 11:51) Unknown adhesive Allergy (Intermediate, Verified 05/29/25 11:51) red patches gentamicin Allergy (Unknown, Verified 05/29/25 11:51) Itching Medication List - Last Reconciled 05/29/25 by Ngoc Ordonez, ESTATE PLANNING COUNSELOR- amlodipine 10 mg PO DAILY aspirin 81 mg PO DAILY atorvastatin 40 mg PO BEDTIME blood sugar diagnostic (OneTouch Verio test strips) TEST BLOOD SUGAR 3 TIMES A DAY blood sugar diagnostic (Blood Glucose Test strips) As directed clobetasol 0.05% 1 appl topical BID clopidogrel (Plavix) 75 mg PO DAILY cyanocobalamin (vitamin B-12) 2,000 mcg PO DAILY dapagliflozin propanediol (Farxiga) 10 mg PO DAILY ferrous sulfate 325 mg PO DAILY lancets (Sparo LabsTouch Delica Plus Lancet) POC testing TID losartan 100 mg PO DAILY magnesium 500 mg PO DAILY mecobalamin (vitamin B12) (B12 Active) 2,000 mcg (2 x 1,000 mcg) PO DAILY melatonin 7.5 mg PO BEDTIME PRN metformin 1,000 mg PO BID methocarbamol 750 mg PO NEEDED metoprolol succinate ER 25 mg PO DAILY naproxen 500 mg PO BID nitroglycerin 0.4 mg sublingual Q5M PRN pantoprazole 40 mg PO USEASDIRECTD polyethylene glycol 3350 (Miralax) 17 grams PO DAILY psyllium husk (Fiber (psyllium husk)) 0.4 grams PO DAILY Tobacco use date assessed: 05/29/25 Fall risk assessment: No Falls in past year Last assessed Fall Risk: 05/29/25 Dental Screening Dental Screen Date: 05/29/25 Did you have a dental visit in the last 12 months?: No Did you have a dental problem in the last 6 months where you did not have access to dental care?: No Was dental information given to patient?: No (no teeth) HPI HPI Comments 2 History of Present Illness0 Details 69-year-old female with diabetes type 2 with complication, hypertension, hyperlipidemia, fatty liver, obesity, chronic back pain, seasonal allergies, GERD, b12 def , CAD s/p KELLEN 12/2024, constipation Status post multiple orthopedic surgeries to include spinal surgery, status post left heart cath with successful stenting of severe unstable 1st diagonal disease with KELLEN 12/2024 [facility] Here today for a Transitional Care Management Visit Discharge summary reviewed. Admission Date: 05/19/25 Discharge Date: 05/20/25 Hospital: [facility] Date of interactive contact with Nurse Navigator: as documented in chart Pending diagnostic tests/treatments: NONE Pending consults: N DME: N PT/OT/NUCLEAR MEDICINE TECH: N Referrals: N Medications reconciled & updated. During [facility] TCM visit, the d/c summary was reviewed, along with the need for or follow-up on pending diagnostic tests and treatments, as necessary interaction with other health critical care unit nurse who will assume or reassume care of the beneficiary?s system-specific problems was done or is being worked on, education was provided to the beneficiary, family, guardian, and/or caregiver, referrals to establish or re-establish and arrange needed community resources we completed, assistance in scheduling required follow-up with community providers and services & finally updated medication list given to patient/caregiver Presents today; feels fine. Thinks stress and medications caused her chest pain She stopped taking buspar and other Rx antidepressant feels better overall of these medications cont in cardiac rehab taking all other meds as directed due for repeat electrolytes today given low Na during acute care stay Exam Awake alert oriented Regular rate and rhythm Lung sounds clear to auscultation bilat No edema to bilateral lower extremities. Positive varicose veins. + PP Normal strength tone and reflexes BLE Mood and affect appropriate. Plan: Cont all meds repeat labs today cont cardiac rehab RTO as scheduled, sooner PRN Total time spent caring for the patient today was 40 minutes. This includes time spent before the visit reviewing the chart, time spent during the visit, and time spent after the visit on documentation, reviewing laboratory results, diagnostic imaging, medications, performing a medically necessary evaluation, counseling on diagnoses, care coordination, ordering appropriate tests, ordering appropriate medications, review of tests performed by other providers, reporting test results with the patient, communication with other healthcare providers. [facility] Medical History Cognitive disorder Non-alcoholic fatty liver disease Exhaustion Memory change Anxiety Hypertension Diabetes Abnormal colonoscopy Surgical History S/P cardiac cath History of colonoscopy (~2014) H/O eye surgery H/O cervical spine surgery History of back surgery H/O elbow surgery H/O wrist surgery H/O section Family History Sister Mental health disorder Substance abuse Cardiovascular disease Hypertension Thyroid disease Advancing dementia Brother Cancer Cardiovascular disease Hypertension Paternal Grandfather Cancer Father Cardiovascular disease Hypertension Mother Hypertension Daughter Thyroid disease Social History Household Members: Spouse Both parents involved: No Caregiver staying overnight: No Housing: House Are you a primary care administrative tech to a significant other at home: No Do you presently have visiting nurse or other home services: No 75 years or older and lives alone: No Alcohol intake: former Patient Tobacco Use Status: Never used Tobacco e-Cigarette/Vaping Use: Never Used Second Hand Smoke Exposure: No Patient : No service: No Current occupational status: retired Cognitive needs: No Hearing needs: No Vision needs: No Questionnaire Thrive Questionnaire Date Thrive assessed: 11/27/24 I am a: Patient What is your living situation today?: I have a steady place to live Within the past 12 months, did the food you bought not last and you didn't have the money to get more?: Never true Within the past 12 months, did you worry whether your food would run out before you got money to buy more?: Never true Do you have trouble paying for medicines?: No Do you have trouble getting transportation to medical appointments?: No Do you have trouble paying your heating and electricity bill?: No Do you have trouble taking care of your child, family member or friend?: No Do you have trouble with day-to-day activities such as bathing, preparing meals, shopping, managing finances, etc.?: No Are you currently unemployed and looking for a job?: No Are you interested in more education?: No Please select the resources that you would like help with: None Currently or been in a relationship where the following occur: No concerns reported THRIVE Score: 0 KAREN-7 AMB Questionnaire KAREN-7 Date KAREN - 7 assessed: 01/08/25 Source: Developed by Drs. Bashir Pillai, Vivienne Brower, Kendall Meehan and colleagues, with an educational yuki from [employer]. Physical exam (Primary Care) Vital Signs: Last Vital Signs Temp 98.3 F 05/29/25 11:37 Pulse 72 05/29/25 11:37 Resp 16 05/29/25 11:37 BP 109/59 L 05/29/25 11:37 Pulse Ox 94 05/29/25 11:37 Oxygen Delivery Method Room Air 05/29/25 11:37 BMI result Body Mass Index 33.2 Tobacco/Smoking Status: Tobacco use Status Tobacco use date assessed 05/29/25 05/29/25 11:40 Patient Tobacco Use Status Never used Tobacco 05/29/25 11:32 e-Cigarette/Vaping Use Never Used 05/29/25 11:32 Thrive Assessment: Date of Thrive Assessment Date Thrive assessed 11/27/24 05/29/25 11:32 Currently or been in a relationship where the following occur: No concerns reported Coding Level of Care Code TCM High MDM <= 14 days Complex EM visit Add On G2211 Diagnoses Hospital discharge follow-up Z09 Anxiety F41.9 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 Coronary artery disease status post coronary stent insertion I25.10; Z95.5 Hyponatremia E87.1 Assessment & Plan Assessment & Plan (1) Hospital discharge follow-up: Code(s): Z09 - Encounter for follow-up examination after completed treatment for conditions other than malignant neoplasm (2) Anxiety: Code(s): F41.9 - Anxiety disorder, unspecified Category: Medical (3) Hypertension: Code(s): I10 - Essential (primary) hypertension Category: Medical Qualifiers: Hypertension type: secondary to endocrine disorders Qualified Code(s): I15.2 - 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 Recommend continuing uninterrupted aspirin Plavix and statin. Code(s): I25.10 - Atherosclerotic heart disease of [place] coronary artery without angina pectoris; Z95.5 - Presence of coronary angioplasty implant and graft Category: Surgical (5) Hyponatremia: Code(s): E87.1 - Hypo-osmolality and hyponatremia Plan . Orders: Orders 2 Electrolytes Today E87.1 - Hypo-osmolality and hyponatremia, Z09 - Encounter for follow-up examination after completed treatment for conditions other than malignant neoplasm
[2025-05-29 11:37] VITALS: BP 109/59; PULSE 72; RESP 16; TEMP 36.8; O2SAT 94; BMI 33.2
--- OUTSIDE RECORDS SUMMARY | 2025-05-29 12:19 | XMS_ITS | Clinical Summary ---
Author Organization Formerly [facility] Address [address] [place] [address] Care Team Providers Care Automotive Service Writer Name Role Phone Ngoc Ordonez APRN Primary Care Provider + Beau Hays MD Unavailable [phone] Allergies Active Allergy Reactions Criticality Noted Date [...] Years Used Date Smoking Tobacco: Never Assessed [facility] Utilities Answer Date Recorded In the past 12 months has [employer], [employer], oil, or water [employer] threatened to shut off services in your [...] any time in the past 12 m [facility], were you homeless or living in a [...] this topic Medical Devices Implanted Type Area Engine Lathe Tender Device Identifier Shelf Expiration Date Model / Serial / Lot [id number] Coronary Stent System Synergy Xd Mr 2.25mm 16mm Delivery s - [id number] Implanted:Qty : 1 on 12/24/2024 by Santosh Brady MD at [facility] Stent N/A: Coronary [employer] [id number] 02/20/2026 [id number] / / [id number] Procedures Procedure Name Priority Date/Time Associated Diagnosis [...] A1C 6.5(H) <5.7 % 12/25/2024 5:38 PM [facility] Comment: A1c% Interpretation 5.7 - 6.0 Increase risk of diabetes 6.1 - 6.4 Higher risk of diabetes > or = 6.5 Consistent with diabetes Diabetes Care, 33(Supp 1):S1-S61, 2010 Estimated Average Glucose 140 mg/dL 12/25/2024 5:38 PM [facility] Blood Blood specimen / Unknown 12/25/2024 8:00 AM EST 12/25/2024 8:12 AM EST Keenan Arreguin MD LAB BLOOD ORDERABLES [place] [address], [address] [address] * (ABNORMAL) LIPID PANEL (12/25/2024 5:33 AM EST) Cholesterol, Total 168 <200 mg/dL 2024 8:24 AM EST [facility] Triglycerides 135 <150 mg/dL 12/25/2024 8:24 AM EST [facility] Cholesterol, HDL 43(L) >60 mg/dL 12/25/19 8:24 AM EST [facility] Estimated LDL 98 <130 mg/dL 12/25/2024 8:24 AM EST [facility] Comment: NCEP Guidelines: < 100 mg/dL Optimal 100 - 129 mg/dL Near Optimal/Above Optimal 130 - 159 mg/dL Borderline High 160 - 189 mg/dL High >/= 190 mg/dL Very High Cholesterol/HDL Ratio 3.9 0.0 - 5.0 Ratio 12/25/2024 8:24 AM EST [facility] Comment: Relative Risk Ratio - Male Ratio - Female 0.5 3.4 3.3 1.0 5.0 4.4 2.0 9.6 7.1 3.0 23.4 11.0 Plasma/Serum 12/25/2024 5:33 AM EST 12/25/2024 6:08 AM EST us Kristina PETERS LAB BLOOD ORDERABL ES Final Result [facility] [address] [place] [address], * (ABNORMAL) Comprehensive Metabolic Panel (12/25/2024 5:33 AM EST) Glucose 131(H) 74 - 106 mg/dL 12/25/2024 6:35 AM EST [facility] Comment:Fasting: <100 mg/dL, Non-Fasting: <200 mg/dL (ADA 2005) Blood Urea Nitrogen (BUN) 10 9 - 23 mg/dL 12/25/2024 6:35 AM EST [facility] Creatinine 0.9 0.6 - 1.0 mg/dL 12/25/2024 6:35 AM EST [facility] eGFR 69 >59 12/25/2024 6:35 AM EST [facility] Comment:CKD-EPI (2020) in mL /min/1.73 sq meters. Sodium 139 136 - 145 mmol/L 12/25/2024 6:35 AM EST [facility] Potassium 4.4 3.4 - 4.5 mmol/L 12/25/2024 6:35 AM EST [facility] Chloride 107 98 - 107 mmol/L 12/25/2024 6:35 AM EST [facility] CO2 24 20 - 31 mmol/L 12/25/2024 6:35 AM EST [facility] Calcium 10.1 8.7 - 10.5 mg/dL 12/25/2024 6:35 AM EST [facility] Alkaline Phosphatase 125(H) 32 - 122 U/L 12/25/2024 6:35 AM EST [facility] Aspartate Aminotrans (AST) 79(H) <34 U/L 12/25/2024 6:35 AM EST [facility] Alanine Aminotrans (ALT) 98(H) 7 - 35 U/L 12/25/2024 6:35 AM EST [facility] Bilirubin, Total 0.6 0.3 - 1.2 mg/dL 12/25/2024 6:35 AM EST [facility] Protein, Total 7.5 5.7 - 8.2 g/dL 12/25/2024 6:35 AM EST [facility] Albumin 4.6 3.4 - 4.8 g/dL 12/25/2024 6:35 AM EST [facility] BUN/Creatinine Ratio 11 10.0 - 25.0 Ratio 12/25/2024 6:35 AM EST [facility] Globulin 2.9 1.5 - 3.9 g/dL 12/25/2024 6:35 AM EST [facility] Albumin/Globulin Ratio 1.6 1.5 - 2.5 Ratio 12/25/2024 6:35 AM EST [facility] Anion Gap 8 5 - 15 12/25/2024 6:35 AM EST [facility] Blood (Plasma/Serum) 12/25/2024 5:33 AM EST 12/25/2024 6:08 AM EST us Kristina PETERS LAB BLOOD ORDERABL ES Final Result [facility] [address] [place] [address], from Last 3 Months or Most Recently Relevant to Health Maintenance Insurance OUT STATE - PPO Advance Directives * Full Code (Latest Code Status on File) Date Activated Date Inactivated Comments 12/24/2024 1:32 PM Care Teams Automotive Service Writer Relationship Specialty Start Date End Date Ngoc Ordonez APRN [address] [place] [address] PCP - General Family Medicine 12/24/24 Beau Hays MD [address] [place] [address] Primary Sprayer Hand Cardiovascular Disease 01/07/25
== END 2025-05-29 12:11 | disposition home or self-care (01) ==
LOC: HO.HMCFM 11:21
PROVIDERS: PCP Nurse Practitioner Family; Visit Provider Nurse Practitioner Family
DX: I15.2 Hypertension secondary to endocrine disorders (principal); F41.9 Anxiety disorder, unspecified; Z09 Encounter for follow-up examination after completed treatment for conditions other than malignant neoplasm; I25.10 Atherosclerotic heart disease of native coronary artery without angina pectoris; Z95.5 Presence of coronary angioplasty implant and graft; E87.1 Hypo-osmolality and hyponatremia

== ENCOUNTER → 2025-05-29 11:20 | Outpatient (BNVA) | payer MEDICARE, SELFPAY | PROVIDERS: PCP Nurse Practitioner Family; Visit Provider Nurse Practitioner Family | DX: Z09 Encounter for follow-up examination after completed treatment for conditions other than malignant neoplasm (principal); F41.9 Anxiety disorder, unspecified; I15.2 Hypertension secondary to endocrine disorders; I25.10 Atherosclerotic heart disease of native coronary artery without angina pectoris; E87.1 Hypo-osmolality and hyponatremia; E11.9 Type 2 diabetes mellitus without complications; Z95.5 Presence of coronary angioplasty implant and graft | CPT/HCPCS: 99212 ==

== ENCOUNTER 2025-05-29 12:40 | Outpatient (REF) | payer MEDICARE, SELFPAY ==
[2025-05-29 14:32] LABS: Anion Gap 13 (12-20); Carbon Dioxide 28 mmol/L (22-29); Chloride 101 mmol/L (96-108); Potassium 4.5 mmol/L (3.3-5.1); Sodium 137 mmol/L (135-145)
== END 2025-05-29 12:41 | disposition home or self-care (01) ==
LOC: HO.WFDLDS 12:40
PROVIDERS: Visit Provider Nurse Practitioner Family
DX: Z09 Encounter for follow-up examination after completed treatment for conditions other than malignant neoplasm (principal); E87.1 Hypo-osmolality and hyponatremia
CPT/HCPCS: 36415; 80051

== ENCOUNTER 2025-06-02 10:01 | Outpatient (AMB) | payer MEDICARE, SELFPAY ==
--- OUTSIDE RECORDS SUMMARY | 2025-06-02 11:01 | XMS_ITS | Clinical Summary ---
Author Organization Formerly [facility] Address [address] [place] [address] Care Team Providers Care Research Program Internship Name Role Phone Ngoc Ordonez APRN Primary Care Provider + Beau Hays MD Unavailable [phone] Allergies Active Allergy Reactions Criticality Noted Date [...] Years Used Date Smoking Tobacco: Never Assessed [facility] Utilities Answer Date Recorded In the past 12 months has [employer], [employer], oil, or water [employer] threatened to shut off services in [...] time in the past 12 m [facility], were you homeless or living in a snf (including now)? No 12/25/2024 Comments Unknown Sex [...] this topic Medical Devices Implanted Type Area Web Systems Developer Device Identifier Shelf Expiration Date Model / Serial / Lot [id number] Coronary Stent System Synergy Xd Mr 2.25mm 16mm Delivery s - [id number] Implanted:Qty : 1 on 12/24/2024 by Santosh Brady MD at [facility] Stent N/A: Coronary [employer] [id number] 02/20/2026 [id number] / / [id number] Procedures Procedure Name Priority Date/Time Associated Diagnosis [...] A1C 6.5(H) <5.7 % 12/25/2024 5:38 PM [facility] Comment: A1c% Interpretation 5.7 - 6.0 Increase risk of diabetes 6.1 - 6.4 Higher risk of diabetes > or = 6.5 Consistent with diabetes Diabetes Care, 33(Supp 1):S1-S61, 2010 Estimated Average Glucose 140 mg/dL 12/25/2024 5:38 PM [facility] Blood Blood specimen / Unknown 12/25/2024 8:00 AM EST 12/25/2024 8:12 AM EST Keenan Arreguin MD LAB BLOOD [place] [address], [address] [address] * (ABNORMAL) LIPID PANEL (12/25/2024 5:33 AM EST) Cholesterol, Total 168 <200 mg/dL 2024 8:24 AM EST [facility] Triglycerides 135 <150 mg/dL 12/25/2024 8:24 AM EST [facility] Cholesterol, HDL 43(L) >60 mg/dL 12/25/19 8:24 AM EST [facility] Estimated LDL 98 <130 mg/dL 12/25/2024 8:24 AM EST [facility] Comment: NCEP Guidelines: < 100 mg/dL Optimal 100 - 129 mg/dL Near Optimal/Above Optimal 130 - 159 mg/dL Borderline High 160 - 189 mg/dL High >/= 190 mg/dL Very High Cholesterol/HDL Ratio 3.9 0.0 - 5.0 Ratio 12/25/2024 8:24 AM EST [facility] Comment: Relative Risk Ratio - Male Ratio - Female 0.5 3.4 3.3 1.0 5.0 4.4 2.0 9.6 7.1 3.0 23.4 11.0 Plasma/Serum 12/25/2024 5:33 AM EST 12/25/2024 6:08 AM EST us Kristina PETERS LAB BLOOD ORDERABL ES Final Result [facility] [address] [place] [address], * (ABNORMAL) Comprehensive Metabolic Panel (12/25/2024 5:33 [...] - 4.8 g/dL 12/25/2024 6:35 AM EST [facility] BUN/Creatinine Ratio 11 10.0 - 25.0 Ratio 12/25/2024 6:35 AM EST [facility] Globulin 2.9 1.5 - 3.9 g/dL 12/25/2024 6:35 AM EST [facility] Albumin/Globulin Ratio 1.6 1.5 - 2.5 Ratio 12/25/2024 6:35 AM EST [facility] Anion Gap 8 5 - 15 12/25/2024 6:35 AM EST [facility] Blood (Plasma/Serum) 12/25/2024 5:33 AM EST 12/25/2024 6:08 AM EST us Kristina PETERS LAB BLOOD ORDERABL ES Final Result [facility] [address] [place] [address], from Last 3 Months or Most Recently Relevant to Health Maintenance Insurance OUT STATE - PPO Advance Directives * Full Code (Latest Code Status on File) Date Activated Date Inactivated Comments 12/24/2024 1:32 PM Care Teams Research Program Internship Relationship Specialty Start Date End Date Ngoc Ordonez APRN [address] [place] [address] PCP - General Family Medicine 12/24/24 Beau Hays MD [address] [place] [address] Primary Pigment Furnace Tender Cardiovascular Disease 01/07/25
--- NOTE | 2025-06-02 11:09 | MHC.OFFVISPS ---
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 Required: No Allergies lisinopril Allergy (Severe, Verified 05/29/25 11:51) Anaphylaxis Penicillins Allergy (Severe, Verified 05/29/25 11:51) Unknown Sulfa (Sulfonamide Antibiotics) Allergy (Severe, Verified 05/29/25 11:51) Unknown adhesive Allergy (Intermediate, Verified 05/29/25 11:51) red patches gentamicin Allergy (Unknown, Verified 05/29/25 11:51) Itching Medication List - Last Reconciled 06/02/25 by Adele Matt APRN amlodipine 10 mg PO DAILY aspirin 81 mg PO DAILY atorvastatin 40 mg PO BEDTIME blood sugar diagnostic (ZyanteTouch Verio test strips) TEST BLOOD SUGAR 3 TIMES A DAY blood sugar diagnostic (Blood Glucose Test strips) As directed clobetasol 0.05% 1 appl topical BID clopidogrel (Plavix) 75 mg PO DAILY cyanocobalamin (vitamin B-12) 2,000 mcg PO DAILY dapagliflozin propanediol (Farxiga) 10 mg PO DAILY ferrous sulfate 325 mg PO DAILY lancets (CAILabsuch Delica Plus Lancet) POC testing TID losartan 100 mg PO DAILY magnesium 500 mg PO DAILY mecobalamin (vitamin B12) (B12 Active) 2,000 mcg (2 x 1,000 mcg) PO DAILY melatonin 7.5 mg PO BEDTIME PRN metformin 1,000 mg PO BID methocarbamol 750 mg PO NEEDED metoprolol succinate ER 25 mg PO DAILY naproxen 500 mg PO BID nitroglycerin 0.4 mg sublingual Q5M PRN pantoprazole 40 mg PO USEASDIRECTD polyethylene glycol 3350 (Miralax) 17 grams PO DAILY psyllium husk (Fiber (psyllium husk)) 0.4 grams PO DAILY HPI- Psychiatric Chief Complaint: consultation HPI Narrative: Pt referred by neurology for evaluation of anxiety and medication recommendations. Pt reports less anxiety and depression now than in past. Her PHQ9=5 and her GAD7 = 1. She reports a lifelong hisotry of trauma and high stress from childhood throughout her life. She reports recent adverse effects while on buspar and celexa. She reports foggy thinking, confusion, chest pain. She recently had cardiac internventions for blocked arteries. A review of her medical record also shows histroy of an EKG with QTC of 535 at one point. She has multiple medical issues managed by her healthcare team. She has difficult marriage. she has good relationship with adult children and 3 grandchildren. She denies SI or HI; she is able to enjoy her activities; she has ongoing stressors about which she would d like to talk to a therapist She is not interested in adding additional medication at thsi time. 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 treated outpt with meds and psychotherapy. No IPLOC. No hx of suicide attempts Subjective Subjective Subjective Medication Compliance: Yes Side effects from medications: No Review of Systems Medical Review of Systems: unchanged Review of Systems Review of Systems Constitutional : No Weight loss, No Fever, No Chills, No Night Sweats, No Fatigue, No Malaise ENT/Mouth : No Hearing loss, No Ear Pain, No Nasal Congestion, No Sinus Pain, No Hoarseness, No sore throat, No Rhinorrhea, No Swallowing Difficulty Eyes: No Eye Pain, No Swelling, No Redness, No Foreign Body, No Discharge, No Vision Changes Cardiovascular : Complaining of chest pressure with exertion, shortness of breath with exertion. One episode of hypotension, generalized malaise at rest, self-resolved. No symptoms at this time Respiratory : No Cough, No Sputum, No Wheezing, No Smoke Exposure, No Dyspnea Gastrointestinal : No Nausea, No Vomiting, No Diarrhea, No Constipation, No abdominal Pain, No Hematochezia, No Melena Genitourinary : no irregular bleeding, No Dysuria, No Urinary Frequency, No Hematuria, No Urinary Incontinence, No Urgency, No Flank Pain, No Urinary Flow Changes, No Hesitancy Musculoskeletal : No joint pain, No Myalgias, No Joint Swelling Skin : No Skin Lesions, No rash Neuro : No Weakness, No Numbness, No Paresthesias, No Loss of Consciousness, No Dizziness, No Headache Psych : No Anxiety/Panic, No Depression, No SI/HI/AH/VH, No Social Issues, Heme/Lymph: No Bruising, No Bleeding,No Lymphadenopathy Endocrine : No Polyuria, No Polydipsia, No Temperature Intolerance Mental Status Exam Mental Status Exam Patient Appearance: Well Grooomed and Appropriate Level of Consciousness: Awake, Appropriate and Alert Patient Behavior: Appropriate, Talkative, Anxious and Good Eye Contact Mood Description: Cheerful and Anxious Affect Description: Cheerful and Anxious Patient Cognition Impaired: No Ability to Follow Directions: Good Speech Pattern: Clear, Spontaneous Speech, Rambling and Animated Memory Description: Intact Hallucinations: None Delusions: Not Present Thought Process: Intact and Distracted Thought Content: positive for Intact and positive for Loose Associations Judgement: Good Results Reviewed Results Reviewed: medical notes, labs, MRI, EKG,cardiac consults Assessment and Plan Assessment & Plan (1) Anxiety: Status: Acute Code(s): F41.9 - Anxiety disorder, unspecified (2) Adult situational stress disorder: Status: Acute Code(s): F43.20 - Adjustment disorder, unspecified Plan rule out ADHD no medications recommended at this time metoprolol is often used for anxiety and may be helping recommend using care with SSRI and SNRI given cardiac issues and hx of high QTC recommend psychotherpay- she requests a mature/seasoned therapist and in person may be re-referred in future if status changes Counseling and coordination of Care Pt. Self Management counseling: Maintenance-social rhythm, Mod caffeine/ETOH intake, Sleep hygiene, General coping skills and Problem solving Medication management counseling: Effectiveness, Side effects, Dosing range, Duration, Drug interaction and Adherence Diagnosis and Prognosis Counseling: Accuracy of diagnosis, Prognosis over time, Impact of diagnosis on life functions, Impact of family relationship, Problematic behaviors secondary to diagnosis and Adequacy of current interventions Details: I spent 90 minutes reviewing the record, seeing the patient and documenting in the medical record. Counseling provided to the patient/caregiver as outlined below. Addressed patient/caregiver concerns regarding current medication regime including effective adherence. Addressed patient/caregiver concerns regarding diagnosis and prognosis including accuracy of diagnosis, prognosis over time, impact of diagnosis. Addressed patient/caregiver concerns regarding impact of recent stressors. [facility] Medical History Cognitive disorder Non-alcoholic fatty liver disease Exhaustion Memory change Anxiety Hypertension Diabetes Abnormal colonoscopy Surgical History S/P cardiac cath History of colonoscopy (~2014) H/O eye surgery H/O cervical spine surgery History of back surgery H/O elbow surgery H/O wrist surgery H/O section Family History Sister Mental health disorder Substance abuse Cardiovascular disease Hypertension Thyroid disease Advancing dementia Brother Cancer Cardiovascular disease Hypertension Paternal Grandfather Cancer Father Cardiovascular disease Hypertension Mother Hypertension Daughter Thyroid disease Social History Household Members: Spouse Both parents involved: No Caregiver staying overnight: No Housing: House Are you a primary home health care case manager to a significant other at home: No Do you presently have visiting nurse or other home services: No 75 years or older and lives alone: No Alcohol intake: former Patient Tobacco Use Status: Never used Tobacco e-Cigarette/Vaping Use: Never Used Second Hand Smoke Exposure: No service: No Current occupational status: retired Cognitive needs: No Hearing needs: No Vision needs: No Social History: lives with and 7 cats and 1 dog. is hoarder. 2 adult children and 3 grandchildren; worked many years in [employer]. Substance History: none Trauma History: yes Coding Level of Care Code Psych Diag Eval w/Med (56613) Diagnoses Anxiety F41.9 Adult situational stress disorder F43.20
== END 2025-06-02 13:46 | disposition home or self-care (01) ==
LOC: HO.HOP 10:01
PROVIDERS: PCP Nurse Practitioner Family; Visit Provider Clinical Nurse Specialist Psychiatric/Mental Health
DX: F41.9 Anxiety disorder, unspecified (principal); F43.20 Adjustment disorder, unspecified
CPT/HCPCS: 90792

== ENCOUNTER → 2025-06-02 10:01 | Outpatient (BNVA) | payer MEDICARE, SELFPAY | PROVIDERS: PCP Nurse Practitioner Family; Visit Provider Clinical Nurse Specialist Psychiatric/Mental Health | DX: F43.20 Adjustment disorder, unspecified (principal); F41.9 Anxiety disorder, unspecified | CPT/HCPCS: 90792 ==

== ENCOUNTER 2025-06-09 09:45 | Outpatient (AMB) | payer MEDICARE, SELFPAY ==
--- NOTE | 2025-06-09 09:49 | A.OFFVIS_ITS ---
Vital Signs 06/09/25 09:56 Height 5 ft Weight 165 lb 12.602 oz BMI 32.4 BP 112/58 L Blood Pressure Location Rt brachial Position Sitting Pulse 86 Pulse Source Pulse Oximeter Pulse Oximetry (%) 96 Oxygen Delivery Method Room Air Intake Visit Reasons: discuss colo Intake Note: Est pt for mgmt of [facility]. Labs done. Chief Complaint; Pt denies any GI changes since last visit. Pt does report that she had a cardiac stent placed in [place] per Dr. Sanders's recommendation. Pt had 95% blockage per their report. Advised that she cannot have colo until approximately 1 year s/p stent. Irrigation Technician Required: No Accompanied by: Spouse Allergies lisinopril Allergy (Severe, Verified 06/09/25 09:49) Anaphylaxis Penicillins Allergy (Severe, Verified 06/09/25 09:49) Unknown Sulfa (Sulfonamide Antibiotics) Allergy (Severe, Verified 06/09/25 09:49) Unknown adhesive Allergy (Intermediate, Verified 06/09/25 09:49) red patches gentamicin Allergy (Unknown, Verified 06/09/25 09:49) Itching HPI HPI discuss colo: Details: LAST VISIT: Screen for colon cancer Atherosclerotic cardiovascular disease Coronary artery disease status post coronary stent insertion Elevated LFTs Non-alcoholic fatty liver disease Plan Due to patient's very recent cardiac stent patient will hold off with colonoscopy. Appointment with cardiology in March. History of non alcoholic fatty liver, patient reports never drank alcohol or never smoked. Will rule out out immune disorders and send her for abdominal ultrasound with liver elastography. She will return in 3-4 months to discuss results. She will call us sooner if she will have any GI concerning symptoms. History of impaction and constipation in the past, recently is moving her bowels well. Continue MiraLax, however patient was encouraged to purchase [id number] fiber with pre and probiotic. She is agreeable to this plan and verbalizes understanding of instructions. She was given the opportunity to ask questions and all questions answered. ? Thank you for allowing me to participate in her care Orders Alpha Fetoprotein Today R79.89 Prothrombin Time INR Today R74.8 Mitochondrial Antibody Today R79.89 Ferritin Today R74.8 Hepatitis A,B,C Profile Today R79.89 C Reactive Protein Today K58.9 Smooth Muscle Antibody Today R79.89 Transglutaminase IgA Today R10.9 Liver Fibrosis Pnl Today K76.0 US abdomen comp w elastography Today R79.89 TODAY'S VISIT Patient is here today for follow-up and discussed block and ultrasound results. Ultrasound rules out advanced compensated liver disease. Improved liver enzymes. Patient reports that she changed her diet and is eating healthier. Saw her telemarketing supervisor and patient will not be able to go for colonoscopy till after December of 2025. Patient has appointment with her telemarketing supervisor in November. Her symptoms of acid reflux are suppressed with pantoprazole. Patient denies dyspepsia, dysphagia or odynophagia. Denies melena, hematochezia, unintentional weight loss or ribbon like stools. [facility] Medical History (Updated 06/09/25 @ 20:[address] [facility]) GERD (gastroesophageal reflux disease) Cognitive disorder Non-alcoholic fatty liver disease Exhaustion Memory change Anxiety Hypertension Diabetes Abnormal colonoscopy Surgical History (Updated 06/09/25 @ 09:54 by Ag Grace CCM) H/O heart artery stent S/P cardiac cath History of colonoscopy (~2014) H/O eye surgery H/O cervical spine surgery History of back surgery H/O elbow surgery H/O wrist surgery H/O section Family History Sister Mental health disorder Substance abuse Cardiovascular disease Hypertension Thyroid disease Advancing dementia Brother Cancer Cardiovascular disease Hypertension Paternal Grandfather Cancer Father Cardiovascular disease Hypertension Mother Hypertension Daughter Thyroid disease Social History Household Members: Spouse Both parents involved: No Caregiver staying overnight: No Housing: House Are you a primary health care coordinator to a significant other at home: No Do you presently have visiting nurse or other home services: No 75 years or older and lives alone: No Alcohol intake: former Patient Tobacco Use Status: Never used Tobacco e-Cigarette/Vaping Use: Never Used Second Hand Smoke Exposure: No service: No Current occupational status: retired Cognitive needs: No Hearing needs: No Vision needs: No Review of Systems Const Denies weight gain and Denies weight loss ENT Reports no additional complaints, Denies dysphagia and Denies odynophagia Card Reports no additional complaints Resp Reports no additional complaints GI Denies abdominal pain, Denies belching, Denies melena, Reports bloating, Denies change in bowel habits, Reports constipation, Denies dysphagia, Denies excessive flatus, Denies dyspepsia, Denies heartburn, Denies diarrhea, Denies loose stools, Denies nausea, Denies odynophagia and Denies vomiting Reports no additional complaints Musc Reports no additional complaints Neuro Reports no additional complaints Psych Reports no additional complaints Endo Reports no additional complaints Physical Exam Vital Signs: Last Vital Signs Pulse 86 06/09/25 09:56 BP 112/58 L 06/09/25 09:56 Pulse Ox 96 06/09/25 09:56 Oxygen Delivery Method Room Air 06/09/25 09:56 BMI result Body Mass Index 32.4 Const General: healthy appearing, no acute distress and well developed Nutritional Appearance: well nourished and obese Orientation/consciousness: patient oriented x3 Resp Effort & Inspection: normal respiratory effort, able to speak in complete sentences, no tracheal deviation and symmetric chest movement Auscultation: clear to auscultation bilaterally Cardio Rate: regular rate GI Inspection: Yes normal to inspection, No distended and Yes obesity Palpation (GI): Soft to palpation, not firm, nontender and No hepatosplenomegaly present Auscultation: normal bowel sounds General: Yes no CVA tenderness Back/Spine/Pelvis Back: no CVA tenderness Skin General skin exam: elasticity normal, turgor normal and dry skin Neuro General: patient oriented x3 Psych Appearance: grossly normal Mental Status: mental status grossly normal Results Reviewed Results Reviewed: FIB-4 FOR LIVER FIBROSIS 1.62?points Advanced fibrosis excluded Approximate fibrosis stage: Narciso 2-3 (Derek et al 2006) Laboratory Tests 01/08/25 02/12/25 03/25/25 12:33 16:04 09:44 Total Bilirubin 0.5 AST 61 H 48 H ALT 73 H 48 H Alkaline Phosphatase 180 H 139 H Liver Fibrosis Stage F2 Anti-Mitochondrial Ab NEGATIVE Anti-Smooth Muscle Ab <20 Tiss Transglutamin IgA <1.0 Hepatitis A IgM Ab Nonreactive Hep Bs Antigen Negative Hep Bs Antibody NONREACTIVE Hep B Core Total Ab Nonreactive Hepatitis C Ab (EIA) Nonreactive LIVER ELASTOGRAPHY FINDINGS: Liver: The right lobe of the liver measures 14.3 cm in size. The left lobe of the liver measures 13.2 cm in size. The liver demonstrates increased echotexture, consistent with steatosis. No focal mass or intrahepatic biliary ductal dilatation is identified. There is a 3 mm calcification in the left lobe. There is normal hepatopedal flow in the portal vein. Ultrasound elastography of the liver was performed with 10 separate measurements of the liver parenchyma with the patient in the supine position. Measurements were obtained approximately 2 cm below Janie's capsule and perpendicular to the capsule. The median shear wave velocity is 1.61 m/s. The interquartile range/median (IQR/median) is 0.20. Gallbladder and biliary tree: The gallbladder is surgically absent. The common bile duct is normal in caliber measuring 7 mm. Kidneys: The right kidney measures 9.9 cm in length. The left kidney measures 8.9 cm in length. There is a 3 mm cortical calcification at the lower pole of the left kidney. The kidneys are otherwise unremarkable, without evidence of masses, hydronephrosis, or calyceal calculi. Pancreas: The pancreatic head, neck, and body are unremarkable. The pancreatic tail is obscured by bowel gas. Spleen: The spleen is normal in size and contour, measuring 8.1 cm in length. Abdominal aorta and inferior vena cava: The visualized portions of the abdominal aorta and inferior vena cava are normal in caliber. There is no free fluid in the abdomen. US/US abdomen comp w elastography IMPRESSION: Hepatic steatosis. The median shear wave velocity in the liver is 1.61 m/s, corresponding to a median liver stiffness of 7.8 kPa. The IQR/median value is 0.20. This is indicative of a quality data set. Findings are indicative of a low elastography value which rules out advanced chronic liver disease in asymptomatic patients. Assessment & Plan Assessment & Plan (1) Elevated LFTs: Code(s): R79.89 - Other specified abnormal findings of blood chemistry Category: Medical (2) Fatty liver: Code(s): K76.0 - Fatty (change of) liver, not elsewhere classified Category: Medical (3) Constipation: Code(s): K59.00 - Constipation, unspecified Category: Medical Qualifiers: Constipation type: slow transit constipation Qualified Code(s): K59.01 - Slow transit constipation (4) GERD (gastroesophageal reflux disease): Code(s): K21.9 - Gastro-esophageal reflux disease without esophagitis Category: Medical Qualifiers: Esophagitis presence: esophagitis presence not specified Qualified Code(s): K21.9 - Gastro-esophageal reflux disease without esophagitis Plan Patient will continue pantoprazole daily. Avoid dietary triggers and late night snacking. Staying upright for minimum 3 hours after meals discussed with patient. Continue high-fiber diet. See increase fluid intake and activity to promote better bowel motility. Patient return in 6 months we will repeat liver panel and ultrasound. Will discuss colonoscopy then. Patient will call our office if she will have any GI concerning symptoms. She is agreeable to this plan and verbalizes understanding of instructions. She was given the opportunity to ask questions and all questions answered. Thank you for allowing me to participate in her care Orders: Orders Liver Panel 6 Months R74.01 - Elevation of levels of liver transaminase levels US abdomen mortensen w elastography 6 Months K76.0 - Fatty (change of) liver, not elsewhere classified Coding Level of Care Code Est Pt Level 4 (98314) Complex EM visit Add On G2211 Diagnoses Elevated LFTs R79.89 Fatty liver K76.0 Slow transit constipation K59.01 Constipation type: slow transit constipation Gastroesophageal reflux disease, unspecified whether esophagitis present K21.9 Esophagitis presence: esophagitis presence not specified Time Spent (min) 35 Comment 25 minutes spent with patient and additional 10 minutes spent reviewing her records
[2025-06-09 09:56] VITALS: BP 112/58; PULSE 86; O2SAT 96; BMI 32.4
--- OUTSIDE RECORDS SUMMARY | 2025-06-09 10:18 | XMS_ITS | Clinical Summary ---
Author Organization [facility] Address [address] [place] [address] Care Team Providers Care Field Court Researcher Name Role Phone Ngoc Ordonez APRN Primary Care Provider + Beau Hays MD Unavailable [phone] Allergies Active Allergy Reactions Criticality Noted Date [...] Recorded In the past 12 months has [employer], [email or web address], oil, or water [employer] threatened to shut off services in your [...] any time in the past 12 m [facility], were you homeless or living in a half-way (including now)? No 12/25/2024 Comments Unknown Sex [...] this topic Medical Devices Implanted Type Area Storage Garage Manager Device Identifier Shelf Expiration Date Model / Serial / Lot [id number] Coronary Stent System Synergy Xd Mr 2.25mm 16mm Delivery s - [id number] Implanted:Qty : 1 on 12/24/2024 by Santosh Brady MD at [facility] Stent N/A: Coronary [employer] [id number] 02/20/2026 [id number] / / [id number] Procedures Procedure Name Priority Date/Time Associated Diagnosis [...] A1C 6.5(H) <5.7 % 12/25/2024 5:38 PM [facility] Comment: A1c% Interpretation 5.7 - 6.0 Increase risk of diabetes 6.1 - 6.4 Higher risk of diabetes > or = 6.5 Consistent with diabetes Diabetes Care, 33(Supp 1):S1-S61, 2010 Estimated Average Glucose 140 mg/dL 12/25/2024 5:38 PM [facility] Blood Blood specimen / Unknown 12/25/2024 8:00 AM EST 12/25/2024 8:12 AM EST Keenan Arreguin MD LAB BLOOD [place] [address], [address] [id number] * (ABNORMAL) LIPID PANEL (12/25/2024 5:33 AM EST) Cholesterol, Total 168 <200 mg/dL 2024 8:24 AM EST [facility] Triglycerides 135 <150 mg/dL 12/25/2024 8:24 AM EST [facility] Cholesterol, HDL 43(L) >60 mg/dL 12/25/19 8:24 AM EST [facility] Estimated LDL 98 <130 mg/dL 12/25/2024 8:24 AM EST [facility] Comment: NCEP Guidelines: < 100 mg/dL Optimal 100 - 129 mg/dL Near Optimal/Above Optimal 130 - 159 mg/dL Borderline High 160 - 189 mg/dL High >/= 190 mg/dL Very High Cholesterol/HDL Ratio 3.9 0.0 - 5.0 Ratio 12/25/2024 8:24 AM EST [facility] Comment: Relative Risk Ratio - Male Ratio - Female 0.5 3.4 3.3 1.0 5.0 4.4 2.0 9.6 7.1 3.0 23.4 11.0 Plasma/Serum 12/25/2024 5:33 AM EST 12/25/2024 6:08 AM EST us Kristina PETERS LAB BLOOD ORDERABL ES Final Result [facility] [address] [place] [address], * (ABNORMAL) Comprehensive Metabolic Panel (12/25/2024 5:33 [...] - 145 mmol/L 12/25/2024 6:35 AM EST [facility] Potassium 4.4 3.4 - 4.5 mmol/L 12/25/2024 6:35 AM EST [facility] Chloride 107 98 - 107 mmol/L 12/25/2024 6:35 AM EST [facility] CO2 24 20 - 31 mmol/L 12/25/2024 6:35 AM EST [facility] Calcium 10.1 8.7 - 10.5 mg/dL 12/25/2024 6:35 AM EST [facility] Alkaline Phosphatase 125(H) 32 - 122 U/L 12/25/2024 6:35 AM EST [facility] Aspartate Aminotrans (AST) 79(H) <34 U/L 12/25/2024 6:35 AM EST [facility] Alanine Aminotrans (ALT) 98(H) 7 - 35 U/L 12/25/2024 6:35 AM EST [facility] Bilirubin, Total 0.6 0.3 - 1.2 mg/dL 12/25/2024 6:35 AM EST [facility] Protein, Total 7.5 5.7 - 8.2 g/dL 12/25/2024 6:35 AM EST [facility] Albumin 4.6 3.4 - 4.8 g/dL 12/25/2024 6:35 AM EST [facility] BUN/Creatinine Ratio 11 10.0 - 25.0 Ratio 12/25/2024 6:35 AM EST [facility] Globulin 2.9 1.5 - 3.9 g/dL 12/25/2024 6:35 AM EST [facility] Albumin/Globulin Ratio 1.6 1.5 - 2.5 Ratio 12/25/2024 6:35 AM EST [facility] Anion Gap 8 5 - 15 12/25/2024 6:35 AM EST [facility] Blood (Plasma/Serum) 12/25/2024 5:33 AM EST 12/25/2024 6:08 AM EST us Kristina PETERS LAB BLOOD ORDERABL ES Final Result [facility] [address] [place] [address], from Last 3 Months or Most Recently Relevant to Health Maintenance Insurance OUT STATE - PPO Advance Directives * Full Code (Latest Code Status on File) Date Activated Date Inactivated Comments 12/24/2024 1:[address] Researcher Relationship Specialty Start Date End Date Ngoc Orodnez APRN [address] [place] [address] PCP - General Family Medicine 12/24/24 Beau Hays MD [address] [place] [address] Primary Cardiac Rehab Nurse Cardiovascular Disease 01/07/25
== END 2025-06-09 10:25 | disposition home or self-care (01) ==
LOC: HO.HGI 09:46
PROVIDERS: PCP Nurse Practitioner Family; Visit Provider Nurse Practitioner Family
DX: R79.89 Other specified abnormal findings of blood chemistry (principal); K76.0 Fatty (change of) liver, not elsewhere classified; K59.01 Slow transit constipation; K21.9 Gastro-esophageal reflux disease without esophagitis
CPT/HCPCS: 99214; G2211

== ENCOUNTER → 2025-06-09 09:45 | Outpatient (BNVA) | payer MEDICARE, SELFPAY | PROVIDERS: PCP Nurse Practitioner Family; Visit Provider Nurse Practitioner Family | DX: K21.9 Gastro-esophageal reflux disease without esophagitis (principal); K76.0 Fatty (change of) liver, not elsewhere classified; R79.89 Other specified abnormal findings of blood chemistry; K59.01 Slow transit constipation | CPT/HCPCS: 99212 ==

== ENCOUNTER 2025-06-11 07:49 | Outpatient (REF) | payer MEDICARE, SELFPAY ==
--- NOTE | ~2025-06-11 | US_ITS ---
EXAMINATION: US LOWER EXTREMITY VENOUS (REFLUX EXAM), BILATERAL CLINICAL INFORMATION: Varices. COMPARISON: None. TECHNIQUE: Color flow triplex imaging and compression Doppler was performed to evaluate both the deep and the superficial systems bilaterally. To evaluate the superficial system, the examination was performed in the upright position. Color-flow Doppler ultrasound and compression ultrasound were utilized. In addition, maneuvers were utilized to demonstrate reflux. FINDINGS: 1. DEEP VENOUS ULTRASOUND OF THE RIGHT LOWER EXTREMITY: Common Femoral Vein: Compressible, normal respiratory variation and augmented flow. Femoral Vein: Compressible, normal color flow and augmentation. Popliteal Vein: Compressible, normal augmentation. Deep Reflux: There is no evidence of reflux in the deep system in either the common femoral vein, superficial femoral or the popliteal vein. There is no evidence of a Lozano's cyst. 2. SUPERFICIAL ULTRASOUND WITH DOPPLER OF RIGHT LOWER EXTREMITY: GREAT SAPHENOUS VEIN: Saphenofemoral Junction: 1.0 cm; Reflux: 0 ms Proximal Thigh: 0.4 cm; Reflux: 0 ms Mid Thigh: 0.4 cm; Reflux: 0 ms Distal Thigh: 0.4 cm; Reflux: 0 ms At Knee: 0.4 cm; Reflux: 0 ms Proximal Calf: 0.2 cm; Reflux: 0 ms Mid Calf: 0.2 cm; Reflux: 0 ms Distal Calf: 0.2 cm; Reflux: 0 ms DUPLICATED MEDIAL GREAT SAPHENOUS VEIN: Diameter: None imaged Reflux: NA DUPLICATED LATERAL GREAT SAPHENOUS VEIN: Diameter: None imaged Reflux: NA SMALL SAPHENOUS VEIN: Saphenopopliteal Junction: 0.2 cm; Reflux: 0 ms Proximal: 0.3 cm; Reflux: 0 ms Distal: 0.3 cm; Reflux: 0 ms VEIN OF GIACOMINI: Size: NA Reflux: NA PERFORATORS: Location: Proximal to mid calf. Size: 0.2 cm. Reflux: NA VARICOSITIES: Location: None imaged. Size: NA Reflux: NA 3. DEEP VENOUS ULTRASOUND OF THE LEFT LOWER EXTREMITY: Common Femoral Vein: Compressible, normal respiratory variation and augmented flow. Femoral Vein: Compressible, normal color flow and augmentation. Popliteal Vein: Compressible, normal augmentation. Deep Reflux: There is no evidence of reflux in the deep system in either the common femoral vein, superficial femoral or the popliteal vein. There is no evidence of a Lozano's cyst. 4. SUPERFICIAL ULTRASOUND WITH DOPPLER OF LEFT LOWER EXTREMITY: GREAT SAPHENOUS VEIN: Saphenofemoral Junction: 0.9 cm; Reflux: 0 ms Proximal Thigh: 0.5 cm; Reflux: 0 ms Mid Thigh: 0.2 cm; Reflux: 0 ms Distal Thigh: 0.4 cm; Reflux: 0 ms At Knee: 0.3 cm; Reflux: 0 ms Proximal Calf: 0.2 cm; Reflux: 2508 ms Mid Calf: 0.2 cm; Reflux: 0 ms Distal Calf: 0.2 cm; Reflux: 0 ms DUPLICATED MEDIAL GREAT SAPHENOUS VEIN: Diameter: None imaged Reflux: NA DUPLICATED LATERAL GREAT SAPHENOUS VEIN: Diameter: 0.2-0.5 cm. Reflux: NA SMALL SAPHENOUS VEIN: Saphenopopliteal Junction: 0.4 cm; Reflux: 0 ms Proximal: 0.2 cm; Reflux: 0 ms Distal: 0.2 cm; Reflux: 0 ms VEIN OF GIACOMINI: Size: NA Reflux: NA PERFORATORS: Location: Accessory saphenous vein, proximal thigh. At the knee and proximal calf. Size: 0.2 cm. Reflux: NA VARICOSITIES: Location: None Imaged Size: NA Reflux: NA US/US venous duplex LE BI IMPRESSION: Right: No venous insufficiency. Perforators without reflux. Left: Venous insufficiency, great saphenous vein below the knee. Perforators without reflux. Electronically signed by: Chip Rogel MD 06/12/2025 10:40 AM EDT
--- OUTSIDE RECORDS SUMMARY | 2025-06-11 07:51 | XMS_ITS | Clinical Summary ---
Author Organization [facility] Address [address] [place] [address] Care Team Providers Care Citrus Picker Name Role Phone Ngoc Ordonez APRN Primary Care Provider + Beau Hays MD Unavailable [phone] Allergies Active Allergy Reactions Criticality Noted Date [...] Years Used Date Smoking Tobacco: Never Assessed [facility] Utilities Answer Date Recorded In the past 12 months has [employer], [employer], oil, or water [employer] threatened to shut off services in your [...] any time in the past 12 m [facility], were you homeless or living in a [...] this topic Medical Devices Implanted Type Area Ice Skating Coach Device Identifier Shelf Expiration Date Model / Serial / Lot [id number] Coronary Stent System Synergy Xd Mr 2.25mm 16mm Delivery s - [id number] Implanted:Qty : 1 on 12/24/2024 by Santosh Brady MD at [facility] Stent N/A: Coronary [employer] [id number] 02/20/2026 [id number] / / [id number] Procedures Procedure Name Priority Date/Time Associated Diagnosis [...] A1C 6.5(H) <5.7 % 12/25/2024 5:38 PM [facility] Comment: A1c% Interpretation 5.7 - 6.0 Increase risk of diabetes 6.1 - 6.4 Higher risk of diabetes > or = 6.5 Consistent with diabetes Diabetes Care, 33(Supp 1):S1-S61, 2010 Estimated Average Glucose 140 mg/dL 12/25/2024 5:38 PM [facility] Blood Blood specimen / Unknown 12/25/2024 8:00 AM EST 12/25/2024 8:12 AM EST Keenan Arreguin MD LAB [place]LOOD [place] [address], [address] [address] * (ABNORMAL) LIPID PANEL (12/25/2024 5:33 AM [...] Final Result [facility] [address] [place] [address], * (ABNORMAL) Comprehensive Metabolic Panel (12/25/2024 5:33 [...] AM EST 12/25/2024 6:08 AM EST us Krsitina PETERS LAB BLOOD ORDERABL ES Final Result [facility] [address] [place] [address], from Last 3 Months or Most Recently Relevant to Health Maintenance Insurance OUT STATE - PPO Advance Directives * Full Code (Latest Code Status on File) Date Activated Date Inactivated Comments 12/24/2024 1:32 PM Care Teams Citrus Picker Relationship Specialty Start Date End Date Ngoc Ordonez APRN [address] [place] [address] PCP - General Family Medicine 12/24/24 Beau Hays MD [address] [place] [address] Primary Web Publisher Cardiovascular Disease 01/07/25
== END 2025-06-11 07:50 | disposition home or self-care (01) ==
LOC: HO.US 07:49
PROVIDERS: PCP Nurse Practitioner Family; Visit Provider Physician Assistant Surgical
DX: I83.11 Varicose veins of right lower extremity with inflammation (principal); I83.12 Varicose veins of left lower extremity with inflammation
CPT/HCPCS: 93970

== ENCOUNTER → 2025-06-11 07:50 | Outpatient (BNV) | payer MEDICARE, SELFPAY | PROVIDERS: PCP Nurse Practitioner Family; Visit Provider Radiology Diagnostic Radiology | DX: I83.12 Varicose veins of left lower extremity with inflammation (principal) | CPT/HCPCS: 93970 ==

== ENCOUNTER 2025-06-20 08:30 | Outpatient (RCR) | payer BC, SELFPAY | END 2025-06-23 06:18 | disposition home or self-care (01) | LOC: HO.CR 08:30 | PROVIDERS: PCP Nurse Practitioner Family; Visit Provider Internal Medicine | DX: Z95.5 Presence of coronary angioplasty implant and graft (principal) | CPT/HCPCS: 93798 ==

== ENCOUNTER 2025-07-30 12:13 | Outpatient (REF) | payer MEDICARE, SELFPAY ==
--- NOTE | ~2025-07-30 | XR_ITS ---
EXAMINATION: XR CHEST CLINICAL INFORMATION: J06.9 - Acute upper respiratory infection, unspecified COMPARISON: 12/23/2024. TECHNIQUE: 2 views of the chest were obtained. FINDINGS: The cardiac, hilar, and mediastinal contours are normal. The lungs are clear bilaterally. There is no pneumothorax or pleural effusion. There is no focal osseous or soft tissue abnormality. Cervical fusion hardware partially imaged. There are cholecystectomy clips. XR/XR chest 2V IMPRESSION: No active pulmonary disease. Electronically signed by: Steven Alves MD 07/30/2025 01:51 PM EDT
[2025-07-31 07:54] LABS: Chlamydia pneumoniae PCR Not Detected (Not Detect.); Coronavirus 229E PCR Not Detected (Not Detect.); Coronavirus HKU1 PCR Not Detected (Not Detect.); Coronavirus NL63 PCR Not Detected (Not Detect.); Coronavirus OC43 PCR Not Detected (Not Detect.); RSV PCR Not Detected (Not Detect.); Rhino/Enterovirus PCR Not Detected (Not Detect.)
[2025-07-31 07:56] LABS: Influenza A H1 PCR Not Detected (Not Detect.); Influenza A H1-2009 PCR Not Detected (Not Detect.); Influenza A H3 PCR Not Detected (Not Detect.); SARS-CoV-2 PCR Not Detected (Not Detect.)
== END 2025-07-30 12:14 | disposition home or self-care (01) ==
LOC: HO.HMGCX 12:13
PROVIDERS: PCP Nurse Practitioner Family; Visit Provider Nurse Practitioner Family
DX: R09.89 Other specified symptoms and signs involving the circulatory and respiratory systems (principal); J06.9 Acute upper respiratory infection, unspecified; R05.9 Cough, unspecified; I25.10 Atherosclerotic heart disease of native coronary artery without angina pectoris; R07.9 Chest pain, unspecified; Z95.5 Presence of coronary angioplasty implant and graft; Z79.82 Long term (current) use of aspirin; Z79.84 Long term (current) use of oral hypoglycemic drugs; Z79.899 Other long term (current) drug therapy
CPT/HCPCS: 71046; 87633; 93005; 99212

== ENCOUNTER 2025-07-30 12:13 | Outpatient (AMB) | payer MEDICARE, SELFPAY ==
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
[2025-07-30 12:22] VITALS: BP 118/69; PULSE 76; RESP 12; TEMP 36.2; O2SAT 99; BMI 33.2
--- OUTSIDE RECORDS SUMMARY | 2025-07-30 14:56 | XMS_ITS | Clinical Summary ---
Author Organization [facility] Address [address] [place] [address] Care Team Providers Care Petroleum Refining Equipment Operator Name Role Phone Ngoc Ordonez APRN Primary Care Provider + Beau Hays MD Unavailable [phone] Allergies Active Allergy Reactions Criticality Noted Date [...] Years Used Date Smoking Tobacco: Never Assessed [facility] Utilities Answer Date Recorded In the past 12 months has [employer], [employer], oil, or water [employer] threatened to shut off services in your [...] any time in the past 12 m [facility], were you homeless or living in a [facility] (including now)? No 12/25/2024 Comments Unknown Sex [...] Health Maintenance Due Date Last Done Comments Advance Care Planning 1955 Hepatitis C Virus Screening 1955 Ophthalmology Exam 1965 Microalbumin/Creatinine Ratio Urine 1973 DTaP/Tdap/Td Vaccines (1 - Tdap) 1974 Pneumococcal Vaccines 50+ (1 of 2 - PCV) 1974 Mammogram 1995 Colonoscopy 2000 Zoster (Shingles) Vaccine (1 of 2) 2005 RSV Vaccine 60 years and older and Patients (1 - Risk 60-74 years 1-dose series) 2015 DXA Bone Density (Females,Ages 65 and older) 2020 Influenza Vaccine 06/06/2025 Hemoglobin A1C 06/24/2025 12/25/2024 COVID-19 Vaccine ( season) 2025 Creatinine with GFR 12/25/2025 12/25/2024, Foot Exam 12/25/2025 12/25/2024, 12/07, 12/24/2024, Additional history exists Lipid Panel 12/25/2025 12/25/2024 Hepatitis B Vaccines Aged Out No long er eligible based on patient's age to complete this topic Medical Devices Implanted Type Area Client Associate Device Identifier Shelf Expiration Date Model / Serial / Lot [id number] Coronary Stent System Synergy Xd Mr 2.25mm 16mm Delivery Sys - [id number] Implanted:Qty : 1 on 12/24/2024 by Santosh Brady MD at [facility] Stent N/A: Coronary [employer] [id number] 02/20/2026 [id number] / [id number] Procedures Procedure Name Priority Date/Time Associated Diagnosis [...] MD LAB BLOOD ORDERAB[place] [address], [address] [address] * (ABNORMAL) LIPID PANEL (12/25/2024 5:33 AM EST) Cholesterol, Total 168 <200 mg/dL 2024 8:24 AM EST [facility] Triglycerides 135 <150 mg/dL 12/25/2024 8:24 AM EST [facility] Cholesterol, HDL 43(L) >60 mg/dL 12/25/19 8:24 AM EST [facility] Estimated LDL 98 <130 mg/dL 12/25/2024 8:24 AM EST [facility] Comment: NCEP Guidelines: < 100 mg/dL Optimal 100 - 129 mg/dL Near Optimal/Above Optimal 130 - 159 mg/dL Borderline High 160 - 189 mg/dL High >/= 190 mg/dL Very High Cholesterol/HDL Ratio 3.9 0.0 - 5.0 Ratio 12/25/2024 8:24 AM EST [facility] Comment: Relative Risk Ratio - Male Ratio - Female 0.5 3.4 3.3 1.0 5.0 4.4 2.0 9.6 7.1 3.0 23.4 11.0 Plasma/Serum 12/25/2024 5:33 AM EST 12/25/2024 6:08 AM EST us Kristina PETERS LAB BLOOD ORDERABL ES Final Result [facility] [address] [place] [address], * (ABNORMAL) Comprehensive Metabolic Panel (12/25/2024 5:33 AM EST) Glucose 131(H) 74 - 106 mg/dL 12/25/2024 6:35 AM EST [facility] Comment:Fasting: <100 mg/dL, Non-Fasting: <200 mg/dL (ADA 2005) Blood Urea Nitrogen (BUN) 10 9 - 23 mg/dL 12/25/2024 6:35 AM EST [facility] Creatinine 0.9 0.6 - 1.0 mg/dL 12/25/2024 6:35 AM EST [facility] eGFR 69 >59 12/25/2024 6:35 AM EST [facility] Comment:CKD-EPI (2020) in mL /min/1.73 sq meters. Sodium 139 136 - 145 mmol/L 12/25/2024 6:35 AM EST [facility] Potassium 4.4 3.4 - 4.5 mmol/L 12/25/2024 6:35 AM EST [facility] Chloride 107 98 - 107 mmol/L 12/25/2024 6:35 AM EST [facility] CO2 24 20 - 31 mmol/L 12/25/2024 6:35 AM EST [facility] Calcium 10.1 8.7 - 10.5 mg/dL 12/25/2024 6:35 AM EST [facility] Alkaline Phosphatase 125(H) 32 - 122 U/L 12/25/2024 6:35 AM EST [facility] Aspartate Aminotrans (AST) 79(H) <34 U/L 12/25/2024 6:35 AM EST [facility] Alanine Aminotrans (ALT) 98(H) 7 - 35 U/L 12/25/2024 6:35 AM EST [facility] Bilirubin, Total 0.6 0.3 - 1.2 mg/dL 12/25/2024 6:35 AM EST [facility] Protein, Total 7.5 5.7 - 8.2 g/dL 12/25/2024 6:35 AM EST [facility] Albumin 4.6 3.4 - 4.8 g/dL 12/25/2024 6:35 AM EST [facility] BUN/Creatinine Ratio 11 10.0 - 25.0 Ratio 12/25/2024 6:35 AM EST [facility] Globulin 2.9 1.5 - 3.9 g/dL 12/25/2024 6:35 AM EST [facility] Albumin/Globulin Ratio 1.6 1.5 - 2.5 Ratio 12/25/2024 6:35 AM EST [facility] Anion Gap 8 5 - 15 12/25/2024 6:35 AM EST [facility] Blood (Plasma/Serum) 12/25/2024 5:33 AM EST 12/25/2024 6:08 AM EST us Kristina PETERS LAB BLOOD ORDERABL ES Final Result [facility] [address] [place] [address], from Last 3 Months or Most Recently Relevant to Health Maintenance Insurance BLUE [employer]OSS OUT OF STATE - PPO Advance Directives * Full Code (Latest Code Status on File) Date Activated Date Inactivated Comments 12/24/2024 1:32 PM Care Teams Petroleum Refining Equipment Operator Relationship Specialty Start Date End Date Ngoc Ordonez APRN [address] [place] [phone] PCP - General Family Medicine 12/24/24 Beau Hays MD [address] [place] [address] Primary Cash Grain Grower Cardiovascular Disease 01/07/25
--- OUTSIDE RECORDS SUMMARY | 2025-07-30 14:56 | XMS_ITS | Patient Health Record ---
Author Organization [facility] Address [address] [place] [address], [address] [place] [address] Support Name Relationship Address Phone DELON (PI2)BRIDGETT Guarantor Unknown [phone] Reason For Referral No Information Plan Of Treatment No Information
== END 2025-07-30 13:00 | disposition home or self-care (01) ==
LOC: HO.HMCFM 12:14
PROVIDERS: PCP Nurse Practitioner Family; Visit Provider Nurse Practitioner Family
DX: I25.10 Atherosclerotic heart disease of native coronary artery without angina pectoris (principal); Z95.5 Presence of coronary angioplasty implant and graft; J06.9 Acute upper respiratory infection, unspecified; R07.9 Chest pain, unspecified

== ENCOUNTER → 2025-07-30 13:30 | Outpatient (BNV) | payer MEDICARE, SELFPAY | PROVIDERS: PCP Nurse Practitioner Family; Visit Provider Radiology Diagnostic Radiology | DX: J06.9 Acute upper respiratory infection, unspecified (principal) | CPT/HCPCS: 71046 ==

== ENCOUNTER 2025-08-20 10:53 | Outpatient (AMB) | payer MEDICARE, SELFPAY ==
--- NOTE | 2025-08-20 11:08 | AM.OFFVISNUR ---
Intake Visit Reasons: flu shot Allergies lisinopril Allergy (Severe, Verified 07/30/25 12:37) Anaphylaxis Penicillins Allergy (Severe, Verified 07/30/25 12:37) Unknown Sulfa (Sulfonamide Antibiotics) Allergy (Severe, Verified 07/30/25 12:37) Unknown adhesive Allergy (Intermediate, Verified 07/30/25 12:37) red patches gentamicin Allergy (Unknown, Verified 07/30/25 12:37) Itching Office Procedures Flu Questionnaire Does the patient have a severe egg allergy?: No Does the patient have severe life threatening allergies?: No Does the patient have a fever or illness today?: No Has the patient ever had Guillain-Matlock Syndrome?: No Has the patient ever had any past reaction to a flu shot?: No Immunizations Fluarix [id number] (PF) 45 mcg (15 mcg x 3)/0.5 mL IM syringe Performing Provider: [facility] Performing Location: [facility] Administered by: Easton Arauz RN on 08/20/25 11:08 Dose Route Admin Location Dispensed Lot Number Expiration Date NDC Project Drilling Engineer 0.5 mL IM Right Deltoid 0.5 mL [id number] 05/05/26 37105-671-35 [facility] VIS Given Date VIS Provided VIS Publication Date 08/20/25 Single Vaccine 24 Eligibility Eligibility Date Funding Source Not [facility] Eligible 08/20/25 Private Assessment & Plan Assessment & Plan Orders: Orders Influenza [id number] Immunization Today Z23 - Encounter for immunization Coding
--- OUTSIDE RECORDS SUMMARY | 2025-08-20 13:18 | XMS_ITS | Patient Health Record ---
Author Organization [facility] Address [address] [place] [address], [address] [place] [address] Support Name Relationship Address Phone DELON (PI2)BRIDGETT Guarantor Unknown [phone] Reason For Referral No Information Plan Of Treatment No Information
--- OUTSIDE RECORDS SUMMARY | 2025-08-20 13:19 | XMS_ITS | Clinical Summary ---
Author Organization [facility] Address [address] [place] [address] Care Team Providers Care Silverware Supervisor Name Role Phone Ngoc Ordonez APRN Primary Care Provider + Beau Hays MD Unavailable [phone] Allergies Active Allergy Reactions Criticality Noted Date [...] Date Smoking Tobacco: Never Assessed [facility] Utilities Answer Date Recorded In the past 12 months has [employer], [employer], oil, or water [employer] threatened to shut off services in your [...] any time in the past 12 m [facility], were you homeless or living in a assisted (including now)? No 12/25/2024 Comments Unknown Sex [...] Vaccine (1 of 2) 2005 RSV Vaccine 50 years and older and Patients (1 - [...] this topic Medical Devices Implanted Type Area Taker Out Device Identifier Shelf Expiration Date Model / Serial / Lot [id number] Coronary Stent System Synergy Xd Mr 2.25mm 16mm Delivery Sys - [id number] Implanted:Qty : 1 on 12/24/2024 by Santosh Brady MD at [facility] Stent N/A: Coronary [employer] [id number] 02/20/2026 [id number] / / [id number] Procedures Procedure Name Priority Date/Time Associated Diagnosis [...] A1C 6.5(H) <5.7 % 12/25/2024 5:38 PM [facility] Comment: A1c% Interpretation 5.7 - 6.0 Increase risk of diabetes 6.1 - 6.4 Higher risk of diabetes > or = 6.5 Consistent with diabetes Diabetes Care, 33(Supp 1):S1-S61, 2010 Estimated Average Glucose 140 mg/dL 12/25/2024 5:38 PM [facility] Blood Blood specimen / Unknown 12/25/2024 8:00 AM EST 12/25/2024 8:12 AM EST Keenan Arreguin MD LAB [place]OD [place] [address], [address] [address] * (ABNORMAL) LIPID PANEL (12/25/2024 5:33 AM [...] Final Result [facility] [address] [place] [address], * (ABNORMAL) Comprehensive Metabolic Panel (12/25/2024 5:33 [...] Final Result [facility] [address] [place] [address], from Last 3 Months or Most Recently Relevant to Health Maintenance Insurance BLUE CROSS OUT OF STATE - PPO Advance Directives * Full Code (Latest Code Status on File) Date Activated Date Inactivated Comments 12/24/2024 1:32 PM Care Teams Silverware Supervisor Relationship Specialty Start Date End Date Ngoc Ordonez APRN [address] [place] [phone] PCP - General Family Medicine 12/24/24 Beau Hays MD [address] [place] [address] Primary Senior Sales Manager Cardiovascular Disease 01/07/25
== END 2025-08-20 11:39 | disposition home or self-care (01) ==
LOC: HO.HMCFM 10:53
PROVIDERS: PCP Nurse Practitioner Family; Visit Provider Nurse Practitioner Family
DX: Z23 Encounter for immunization (principal)

== ENCOUNTER → 2025-08-20 10:53 | Outpatient (BNVA) | payer MEDICARE, SELFPAY | PROVIDERS: PCP Nurse Practitioner Family; Visit Provider Nurse Practitioner Family | DX: Z23 Encounter for immunization (principal) | CPT/HCPCS: 90471; 90656 ==

== ENCOUNTER 2025-08-22 09:16 | Outpatient (REF) | payer MEDICARE, SELFPAY ==
--- NOTE | ~2025-08-22 | US_ITS ---
CLINICAL HISTORY: N39.41 - Urge incontinence US Renal Comparison: None provided Findings: Right kidney normal size and echotexture, 10.1 cm length. Left kidney normal size and echotexture, 10.9 cm length. No collecting system dilatation of either kidney. Normal color Doppler. Urinary bladder is unremarkable. Prevoid volume 648 mL. Postvoid volume 26 mL. Bilateral ureteral jets are visualized. IMPRESSION: 1. No acute findings. This document has been electronically signed by: Santosh Salazar MD on 08/24/2025 09:44:56
--- OUTSIDE RECORDS SUMMARY | 2025-08-22 10:13 | XMS_ITS | Patient Health Record ---
Author Organization [facility] Address [address] [place] [address], [address] [place] [address] Support Name Relationship Address Phone DELON (PI2)BRIDGETT Guarantor Unknown Reason For Referral No Information Plan Of Treatment No Information
--- OUTSIDE RECORDS SUMMARY | 2025-08-22 10:13 | XMS_ITS | Clinical Summary ---
Author Organization [facility] Address [address] [place] [address] Care Team Providers Care Stringing Machine Operator Name Role Phone Ngoc Ordonez APRN Primary Care Provider + Beau Hays MD Unavailable [phone] Allergies Active Allergy Reactions Criticality Noted Date [...] Recorded In the past 12 months has [email or web address], [employer], oil, or water [email or web address] threatened to shut off services in your [...] in a long-term (including now)? No 12/25/2024 Comments Unknown Sex [...] - PCV) 1974 Mammogram 1995 Colonoscopy 2000 RSV Vaccine 50 years and older and Patients (1 - Risk 50-74 years 1-dose series) 2005 Zoster (Shingles) Vaccine (1 of 2) 2005 [...] this topic Medical Devices Implanted Type Area Children'S Program Coordinator Device Identifier Shelf Expiration Date Model / Serial / Lot [id number] Coronary Stent System Synergy Xd Mr 2.25mm 16mm Delivery Sys - [id number] Implanted:Qty : 1 on 12/24/2024 by Santosh Brady MD at [facility] Stent N/A: Coronary [employer] [id number] 02/20/2026 [id number] / / [id number] Procedures Procedure Name Priority Date/Time Associated Diagnosis [...] A1C 6.5(H) <5.7 % 12/25/2024 5:38 PM [facility] Comment: A1c% Interpretation 5.7 - 6.0 Increase risk of diabetes 6.1 - 6.4 Higher risk of diabetes > or = 6.5 Consistent with diabetes Diabetes Care, 33(Supp 1):S1-S61, 2010 Estimated Average Glucose 140 mg/dL 12/25/2024 5:38 PM [facility] Blood Blood specimen / Unknown 12/25/2024 8:00 AM EST 12/25/2024 8:12 AM EST us Keenan Arreguin MD LAB BLOOD [place] [address], [address] [address] * (ABNORMAL) LIPID PANEL (12/25/2024 5:33 AM EST) Cholesterol, Total 168 <200 mg/dL 2024 8:24 AM EST [facility] Triglycerides 135 <150 mg/dL 12/25/2024 8:24 AM EST [facility] Cholesterol, HDL 43(L) >60 mg/dL 12/25/19 8:24 AM EST [facility] Estimated LDL 98 <130 mg/dL 12/25/2024 8:24 AM EST [facility] Comment: NCEP Guidelines: < 100 mg/dL Optimal 100 - 129 mg/dL Near Optimal/Above Optimal 130 - 159 mg/dL Borderline High 160 - 189 mg/dL High >/= 190 mg/dL Very High Cholesterol/HDL Ratio 3.9 0.0 - 5.0 Ratio 12/25/2024 8:24 AM EST [facility] Comment: Relative Risk Ratio - Male Ratio - Female 0.5 3.4 3.3 1.0 5.0 4.4 2.0 9.6 7.1 3.0 23.4 11.0 Plasma/Serum 12/25/2024 5:33 AM EST 12/25/2024 6:08 AM EST us Kristina PETERS LAB BLOOD ORDERABL ES Final Result [facility] [address] [place] [address], * (ABNORMAL) Comprehensive Metabolic Panel (12/25/2024 5:33 AM EST) Glucose 131(H) 74 - 106 mg/dL 12/25/2024 6:35 AM EST [facility] Comment:Fasting: <100 mg/dL, Non-Fasting: <200 mg/dL (ADA 2005) Blood Urea Nitrogen (BUN) 10 9 - 23 mg/dL 12/25/2024 6:35 AM EST [facility] Creatinine 0.9 0.6 - 1.0 mg/dL 12/25/2024 6:35 AM EST [facility] eGFR 69 >59 12/25/2024 6:35 AM EST [facility] Comment:CKD-EPI (2020) in mL /min/1.73 sq meters. Sodium 139 136 - 145 mmol/L 12/25/2024 6:35 AM EST [facility] Potassium 4.4 3.4 - 4.5 mmol/L 12/25/2024 6:35 AM EST [facility] Chloride 107 98 - 107 mmol/L 12/25/2024 6:35 AM EST [facility] CO2 24 20 - 31 mmol/L 12/25/2024 6:35 AM EST [facility] Calcium 10.1 8.7 - 10.5 mg/dL 12/25/2024 6:35 AM EST [facility] Alkaline Phosphatase 125(H) 32 - 122 U/L 12/25/2024 6:35 AM EST [facility] Aspartate Aminotrans (AST) 79(H) <34 U/L 12/25/2024 6:35 AM EST [facility] Alanine Aminotrans (ALT) 98(H) 7 - 35 U/L 12/25/2024 6:35 AM EST [facility] Bilirubin, Total 0.6 0.3 - 1.2 mg/dL 12/25/2024 6:35 AM EST [facility] Protein, Total 7.5 5.7 - 8.2 g/dL 12/25/2024 6:35 AM EST [facility] Albumin 4.6 3.4 - 4.8 g/dL 12/25/2024 6:35 AM EST [facility] BUN/Creatinine Ratio 11 10.0 - 25.0 Ratio 12/25/2024 6:35 AM EST [facility] Globulin 2.9 1.5 - 3.9 g/dL 12/25/2024 6:35 AM EST [facility] Albumin/Globulin Ratio 1.6 1.5 - 2.5 Ratio 12/25/2024 6:35 AM EST [facility] Anion Gap 8 5 - 15 12/25/2024 6:35 AM EST [facility] Blood (Plasma/Serum) 12/25/2024 5:33 AM EST 12/25/2024 6:08 AM EST us Kristina PETERS LAB BLOOD ORDERABL ES Final Result [facility] [address] [place] [address], from Last 3 Months or Most Recently Relevant to Health Maintenance Insurance BLUE CROSS OUT OF STATE - PPO Advance Directives * Full Code (Latest Code Status on File) Date Activated Date Inactivated Comments 12/24/2024 1:32 PM Care Teams Stringing Machine Operator Relationship Specialty Start Date End Date Ngoc Ordonez APRN [address] [place] [phone] PCP - General Family Medicine 12/24/24 Beau Hays MD [address] [place] [address] Primary It Business Systems Analyst Cardiovascular Disease 01/07/25
== END 2025-08-22 09:17 | disposition home or self-care (01) ==
LOC: HO.US 09:16
PROVIDERS: PCP Nurse Practitioner Family; Visit Provider Nurse Practitioner Family
DX: N39.41 Urge incontinence (principal)
CPT/HCPCS: 76770

== ENCOUNTER → 2025-08-22 09:19 | Outpatient (BNV) | payer MEDICARE, SELFPAY | PROVIDERS: PCP Nurse Practitioner Family; Visit Provider Specialist | DX: N39.41 Urge incontinence (principal) | CPT/HCPCS: 76770 ==

== ENCOUNTER 2025-08-28 09:47 | Outpatient (AMB) | payer MEDICARE, SELFPAY ==
--- NOTE | 2025-08-28 09:50 | A.OFFVIS_ITS ---
Intake Visit Reasons: follow up 06/12/2025 Intake Note: Patient presents for US performed on 06/12/25. Patient states her left leg swells. Accompanied by: Spouse Allergies lisinopril Allergy (Severe, Verified 08/28/25 09:51) Anaphylaxis Penicillins Allergy (Severe, Verified 08/28/25 09:51) Unknown Sulfa (Sulfonamide Antibiotics) Allergy (Severe, Verified 08/28/25 09:51) Unknown adhesive Allergy (Intermediate, Verified 08/28/25 09:51) red patches gentamicin Allergy (Unknown, Verified 08/28/25 09:51) Itching HPI HPI follow up 06/12/2025: Details: The patient is a 69-year-old female presenting with venous insufficiency. Testing conducted on June 11, 2025, revealed a small focal spot of venous insufficiency below the left knee, which is not considered significant enough to warrant intervention. The patient has a history of myocardial infarction, which impacts her ability to engage in physical activities. She experiences difficulty in ascending stairs and reports leg swelling after prolonged sitting or exercise. The patient reports arthritis, which affects her mobility and is exacerbated by prolonged sitting or travel. She has a family history of arthritis, with her mother and grandmother suffering from severe forms of the condition. The patient has undergone cervical spine surgery due to arthritis, which has resulted in numbness in her hands. She has had elbow surgery in the past and was advised against neck surgery, but she proceeded due to the severity of her symptoms. [facility] Medical History GERD (gastroesophageal reflux disease) Cognitive disorder Non-alcoholic fatty liver disease Exhaustion Memory change Anxiety Hypertension Diabetes Abnormal colonoscopy Surgical History H/O heart artery stent S/P cardiac cath History of colonoscopy (~2014) H/O eye surgery H/O cervical spine surgery History of back surgery H/O elbow surgery H/O wrist surgery H/O section Family History Sister Mental health disorder Substance abuse Cardiovascular disease Hypertension Thyroid disease Advancing dementia Brother Cancer Cardiovascular disease Hypertension Paternal Grandfather Cancer Father Cardiovascular disease Hypertension Mother Hypertension Daughter Thyroid disease Social History Household Members: Spouse Both parents involved: No Caregiver staying overnight: No Housing: House Are you a primary home care and home health aides teacher to a significant other at home: No Do you presently have visiting nurse or other home services: No 75 years or older and lives alone: No Alcohol intake: former Patient Tobacco Use Status: Never used Tobacco e-Cigarette/Vaping Use: Never Used Second Hand Smoke Exposure: No service: No Current occupational status: retired Cognitive needs: No Hearing needs: No Vision needs: No Review of Systems Const All systems reviewed & are unremarkable except as noted in HPI and below Reports no additional complaints ENT Reports Normal hearing present Card Denies chest pain, Denies chest pain at rest, Denies chest pain with activity and Denies pedal edema Resp Denies cough GI Denies abdominal pain Musc Denies abnormal gait, Denies muscle cramps and Denies radiating pain into limb Skin/Breast Denies skin ulcer and Denies wounds Neuro Reports Normal hearing present and Denies abnormal gait Psych Reports no additional complaints Physical Exam Const General: cooperative, healthy appearing and comfortable Orientation/consciousness: oriented to person, oriented to place and oriented to time HEENT Head: Yes normal to inspection Neck Neck: Yes normal visual inspection Carotids: no bruits Chest Chest palpation & inspection: normal inspection of the chest Resp Effort & Inspection: normal respiratory effort and able to speak in complete sentences Auscultation: clear to auscultation bilaterally, no crackles, no rales, no rhonchi and no wheezes Cardio Rate: regular rate Rhythm: regular rhythm Heart sounds: S1 normal heart sound present and S2 normal heart sound present Bruits: no carotid bruits Peripheral pulses: Peripheral pulses 2+ throughout GI Inspection: Yes normal to inspection Skin Wounds: no wounds Hair: normal Neuro General: oriented to person, oriented to place and oriented to time Cranial nerves: Yes CN's II-XII intact bilaterally and Yes Normal hearing present Cognition (Neuro): normal cognition Motor exam (neuro): 5/5 motor strength present throughout Extrem Other: venous exam: +1 edema General: No clubbing, No cyanosis and Yes edema Psych Appearance: grossly normal Mental Status: mental status grossly normal Speech and movement: Normal speech and movement present Results Reviewed Results Reviewed: Brief summary of venous insufficiency testing is as follows: right great saphenous vein: negative right small saphenous vein: negative right accessory vein: none present left great saphenous vein: Focally positive left calf left small saphenous vein: negative left accessory vein: none present Please note there is no evidence of any venous aneurysms or significant tortuosity Assessment & Plan Assessment & Plan (1) Varicose veins of both lower extremities with inflammation: Code(s): I83.11 - Varicose veins of right lower extremity with inflammation; I83.12 - Varicose veins of left lower extremity with inflammation Category: Medical Plan: During the visit, I discussed with the patient that the small focal spot of venous insufficiency in her left leg does not require intervention at this time. I recommended conservative management, including the use of compression socks and taking frequent breaks during long periods of sitting or travel. We also discussed her arthritis and the importance of maintaining mobility and addressing pain as needed. I advised her to consider further evaluation by pain management if her symptoms persist. Coding Level of Care Code Est Pt Level 4 (00428) Diagnoses Varicose veins of both lower extremities with inflammation I83.11; I83.12
--- OUTSIDE RECORDS SUMMARY | 2025-08-28 11:10 | XMS_ITS | Clinical Summary ---
Author Organization [facility] Address [address] [place] [address] Care Team Providers Care Information Systems Audit Manager Name Role Phone Ngoc Ordonez APRN Primary Care Provider + Beau Hays MD Unavailable [phone] Allergies Active Allergy Reactions Criticality Noted Date [...] Years Used Date Smoking Tobacco: Never Assessed [facility] Utilities Answer Date Recorded In the past 12 months has [employer], [employer], oil, or water [employer] threatened to shut off services in your [...] this topic Medical Devices Implanted Type Area Oral Surgery Physician Device Identifier Shelf Expiration Date Model / Serial / Lot [id number] Coronary Stent System Synergy Xd Mr 2.25mm 16mm Delivery Sys - [id number] Implanted:Qty : 1 on 12/24/2024 by Santosh Brady MD at [facility] Stent N/A: Coronary [employer] [id number] 02/20/2026 [id number] / / [id number] Procedures Procedure Name Priority Date/Time Associated Diagnosis [...] A1C 6.5(H) <5.7 % 12/25/2024 5:38 PM [facility] Comment: A1c% Interpretation 5.7 - 6.0 Increase risk of diabetes 6.1 - 6.4 Higher risk of diabetes > or = 6.5 Consistent with diabetes Diabetes Care, 33(Supp 1):S1-S61, 2010 Estimated Average Glucose 140 mg/dL 12/25/2024 5:38 PM [facility] Blood Blood specimen / Unknown 12/25/2024 8:00 AM EST 12/25/2024 8:12 AM EST Keenan Arreguin MD LAB BLOOD ORDERABLES [place] [address], [address] [address] * (ABNORMAL) LIPID PANEL (12/25/2024 5:33 AM EST) Cholesterol, Total 168 <200 mg/dL 2024 8:24 AM EST [facility] Triglycerides 135 <150 mg/dL 12/25/2024 8:24 AM EST [facility] Cholesterol, HDL 43(L) >60 mg/dL 12/25/19 8:24 AM EST [facility] Estimated LDL 98 <130 mg/dL 12/25/2024 8:24 AM EST [facility] Comment: NCEP Guidelines: < 100 mg/dL Optimal 100 - 129 mg/dL Near Optimal/Above Optimal 130 - 159 mg/dL Borderline High 160 - 189 mg/dL High >/= 190 mg/dL Very High Cholesterol/HDL Ratio 3.9 0.0 - 5.0 Ratio 12/25/2024 8:24 AM EST [facility] Comment: Relative Risk Ratio - Male Ratio - Female 0.5 3.4 3.3 1.0 5.0 4.4 2.0 9.6 7.1 3.0 23.4 11.0 Plasma/Serum 12/25/2024 5:33 AM EST 12/25/2024 6:08 AM EST us Kristina PETERS LAB BLOOD ORDERABL ES Final Result [facility] [address] [place] [address], * (ABNORMAL) Comprehensive Metabolic Panel (12/25/2024 5:33 AM EST) Glucose 131(H) 74 - 106 mg/dL 12/25/2024 6:35 AM EST [facility] Comment:Fasting: <100 mg/dL, Non-Fasting: <200 mg/dL (ADA 2005) Blood Urea Nitrogen (BUN) 10 9 - 23 mg/dL 12/25/2024 6:35 AM EST [facility] Creatinine 0.9 0.6 - 1.0 mg/dL 12/25/2024 6:35 AM EST [facility] eGFR 69 >59 12/25/2024 6:35 AM EST [facility] Comment:CKD-EPI (2020) in mL /min/1.73 sq meters. Sodium 139 136 - 145 mmol/L 12/25/2024 6:35 AM EST [facility] Potassium 4.4 3.4 - 4.5 mmol/L 12/25/2024 6:35 AM EST [facility] Chloride 107 98 - 107 mmol/L 12/25/2024 6:35 AM EST [facility] CO2 24 20 - 31 mmol/L 12/25/2024 6:35 AM EST [facility] Calcium 10.1 8.7 - 10.5 mg/dL 12/25/2024 6:35 AM EST [facility] Alkaline Phosphatase 125(H) 32 - 122 U/L 12/25/2024 6:35 AM EST [facility] Aspartate Aminotrans (AST) 79(H) <34 U/L 12/25/2024 6:35 AM EST [facility] Alanine Aminotrans (ALT) 98(H) 7 - 35 U/L 12/25/2024 6:35 AM EST [facility] Bilirubin, Total 0.6 0.3 - 1.2 mg/dL 12/25/2024 6:35 AM EST [facility] Protein, Total 7.5 5.7 - 8.2 g/dL 12/25/2024 6:35 AM EST [facility] Albumin 4.6 3.4 - 4.8 g/dL 12/25/2024 6:35 AM EST [facility] BUN/Creatinine Ratio 11 10.0 - 25.0 Ratio 12/25/2024 6:35 AM EST [facility] Globulin 2.9 1.5 - 3.9 g/dL 12/25/2024 6:35 AM EST [facility] Albumin/Globulin Ratio 1.6 1.5 - 2.5 Ratio 12/25/2024 6:35 AM EST [facility] Anion Gap 8 5 - 15 12/25/2024 6:35 AM EST [facility] Blood (Plasma/Serum) 12/25/2024 5:33 AM EST 12/25/2024 6:08 AM EST us Kristina PETERS LAB BLOOD ORDERABL ES Final Result [facility] [address] [place] [address], from Last 3 Months or Most Recently Relevant to Health Maintenance Insurance BLUE CROSS OUT OF STATE - PPO Advance Directives * Full Code (Latest Code Status on File) Date Activated Date Inactivated Comments 12/24/2024 1:32 PM Care Teams Information Systems Audit Manager Relationship Specialty Start Date End Date Ngoc Ordonez APRN [address] [place] [phone] PCP - General Family Medicine 12/24/24 Beau Hays MD [address] [place] [address] Primary Location And Measurement Technician Cardiovascular Disease 01/07/25
== END 2025-08-28 10:22 | disposition home or self-care (01) ==
LOC: HO.HVS 09:47
PROVIDERS: PCP Nurse Practitioner Family; Visit Provider Surgery Vascular Surgery
DX: I83.11 Varicose veins of right lower extremity with inflammation (principal); I83.12 Varicose veins of left lower extremity with inflammation
CPT/HCPCS: 99214

== ENCOUNTER → 2025-08-28 09:47 | Outpatient (BNVA) | payer MEDICARE, SELFPAY | PROVIDERS: PCP Nurse Practitioner Family; Visit Provider Surgery Vascular Surgery | DX: Z71.2 Person consulting for explanation of examination or test findings (principal); I83.11 Varicose veins of right lower extremity with inflammation; I83.12 Varicose veins of left lower extremity with inflammation | CPT/HCPCS: 99212 ==

== ENCOUNTER 2025-08-29 08:28 | Outpatient (AMB) | payer MEDICARE, SELFPAY ==
--- OUTSIDE RECORDS SUMMARY | 2025-08-29 08:56 | XMS_ITS | Clinical Summary ---
Author Organization [facility] Address [address] [place] [address] Care Team Providers Care Bending Shed Worker Name Role Phone Ngoc Ordonez APRN [...] Years Used Date Smoking Tobacco: Never Assessed [facility] Utilities Answer Date Recorded In the past 12 months has [employer], oil, or water [employer] threatened to shut off services in your [...] in a fdc (including now)? No 12/25/2024 Comments Unknown Sex [...] this topic Medical Devices Implanted Type Area Engineering Documentation Specialist Device Identifier Shelf Expiration Date Model / Serial / Lot [id number] Coronary Stent System Synergy Xd Mr 2.25mm 16mm Delivery Sys - [id number] Implanted:Qty : 1 on 12/24/2024 by Santosh Brady MD at [facility] Stent N/A: Coronary [employer] [id number] 02/20/2026 [id number] / / [id number] Procedures Procedure Name Priority Date/Time Associated Diagnosis [...] MD LAB [place]LOOD [place] [address], [address] [address] * (ABNORMAL) LIPID PANEL (12/25/2024 5:33 AM EST) Cholesterol, Total 168 <200 mg/dL 2024 8:24 AM EST [facility] Triglycerides 135 <150 mg/dL 12/25/2024 8:24 AM EST [facility] Cholesterol, HDL 43(L) >60 mg/dL 12/25/19 8:24 AM EST [facility] Estimated LDL 98 <130 mg/dL 12/25/2024 8:24 AM EST [facility] Comment: NCEP Guidelines: < 100 mg/dL Optimal 100 - 129 mg/dL Near Optimal/Above Optimal 130 - 159 mg/dL Borderline High 160 - 189 mg/dL High >/= 190 mg/dL Very High Cholesterol/HDL Ratio 3.9 0.0 - 5.0 Ratio 12/25/2024 8:24 AM EST [facility] Comment: Relative Risk Ratio - Male Ratio - Female 0.5 3.4 3.3 1.0 5.0 4.4 2.0 9.6 7.1 3.0 23.4 11.0 Plasma/Serum 12/25/2024 5:33 AM EST 12/25/2024 6:08 AM EST us Kristina PETERS LAB BLOOD ORDERABL ES Final Result [facility] [address] [place] [address], * (ABNORMAL) Comprehensive Metabolic Panel (12/25/2024 5:33 AM EST) Glucose 131(H) 74 - 106 mg/dL 12/25/2024 6:35 AM EST [facility] Comment:Fasting: <100 mg/dL, Non-Fasting: <200 mg/dL (ADA 2005) Blood Urea Nitrogen (BUN) 10 9 - 23 mg/dL 12/25/2024 6:35 AM EST [facility] Creatinine 0.9 0.6 - 1.0 mg/dL 12/25/2024 6:35 AM EST [facility] eGFR 69 >59 12/25/2024 6:35 AM EST [facility] Comment:CKD-EPI (2020) in mL /min/1.73 sq meters. Sodium 139 136 - 145 mmol/L 12/25/2024 6:35 AM EST [facility] Potassium 4.4 3.4 - 4.5 mmol/L 12/25/2024 6:35 AM EST [facility] Chloride 107 98 - 107 mmol/L 12/25/2024 6:35 AM EST [facility] CO2 24 20 - 31 mmol/L 12/25/2024 6:35 AM EST [facility] Calcium 10.1 8.7 - 10.5 mg/dL 12/25/2024 6:35 AM EST [facility] Alkaline Phosphatase 125(H) 32 - 122 U/L 12/25/2024 6:35 AM EST [facility] Aspartate Aminotrans (AST) 79(H) <34 U/L 12/25/2024 6:35 AM EST [facility] Alanine Aminotrans (ALT) 98(H) 7 - 35 U/L 12/25/2024 6:35 AM EST [facility] Bilirubin, Total 0.6 0.3 - 1.2 mg/dL 12/25/2024 6:35 AM EST [facility] Protein, Total 7.5 5.7 - 8.2 g/dL 12/25/2024 6:35 AM EST [facility] Albumin 4.6 3.4 - 4.8 g/dL 12/25/2024 6:35 AM EST [facility] BUN/Creatinine Ratio 11 10.0 - 25.0 Ratio 12/25/2024 6:35 AM EST [facility] Globulin 2.9 1.5 - 3.9 g/dL 12/25/2024 6:35 AM EST [facility] Albumin/Globulin Ratio 1.6 1.5 - 2.5 Ratio 12/25/2024 6:35 AM EST [facility] Anion Gap 8 5 - 15 12/25/2024 6:35 AM EST [facility] Blood (Plasma/Serum) 12/25/2024 5:33 AM EST 12/25/2024 6:08 AM EST us Kristina PETERS LAB BLOOD ORDERABL ES Final Result [facility] [address] [place] [address], from Last 3 Months or Most Recently Relevant to Health Maintenance Insurance BLUE CROSS OUT OF STATE - PPO Advance Directives * Full Code (Latest Code Status on File) Date Activated Date Inactivated Comments 12/24/2024 1:32 PM Care Teams Bending Shed Worker Relationship Specialty Start Date End Date Ngoc Ordonez APRN [address] [place] [phone] PCP - General Family Medicine 12/24/24 Beau Hays MD [address] [place] [address] Primary Electric Arc Furnace Operator Cardiovascular Disease 01/07/25
--- NOTE | 2025-08-29 09:10 | A.OFFVIS_ITS ---
Intake Visit Reasons: UroD Allergies lisinopril Allergy (Severe, Verified 09/02/25 07:24) Anaphylaxis Penicillins Allergy (Severe, Verified 09/02/25 07:24) Unknown Sulfa (Sulfonamide Antibiotics) Allergy (Severe, Verified 09/02/25 07:24) Unknown adhesive Allergy (Intermediate, Verified 09/02/25 07:24) red patches gentamicin Allergy (Unknown, Verified 09/02/25 07:24) Itching Medication List - Last Reconciled 08/29/25 by Trish Browne MD amlodipine 10 mg PO DAILY aspirin 81 mg PO DAILY atorvastatin 40 mg PO BEDTIME blood sugar diagnostic (OneTouch Verio test strips) TEST BLOOD SUGAR 3 TIMES A DAY blood sugar diagnostic (Blood Glucose Test strips) As directed clobetasol 0.05% 1 appl topical BID clopidogrel 75 mg PO DAILY cyanocobalamin (vitamin B-12) 2,000 mcg PO DAILY dapagliflozin propanediol (Farxiga) 10 mg PO DAILY ferrous sulfate 325 mg PO DAILY lancets (xAdTouch Delica Plus Lancet) POC testing TID losartan 100 mg PO DAILY magnesium 500 mg PO DAILY mecobalamin (vitamin B12) (B12 Active) 2,000 mcg (2 x 1,000 mcg) PO DAILY melatonin 7.5 mg PO BEDTIME PRN metformin 1,000 mg PO BID methocarbamol 750 mg PO NEEDED metoprolol succinate ER 25 mg PO DAILY naproxen 500 mg PO BID nitroglycerin 0.4 mg sublingual Q5M PRN pantoprazole 40 mg PO QAM psyllium husk (Fiber (psyllium husk)) 0.4 grams PO DAILY HPI Comments Details: 08/29/2025--Heidi is here for urodynamics. Results were notable for uninhibited detrusor contractions. Objective stress was not observed during this test. EMG activity within normal limits. History of Present Illness The patient is a 69-year-old female presenting for UDS. The urodynamics test revealed uninhibited detrusor contractions, indicating bladder spasms during filling, which contributes to urinary urgency. The patient has a history of coronary artery disease and hypertension, for which she is on multiple medications including losartan, amlodipine, and clopidogrel. She also manages diabetes mellitus with metformin and another unspecified diabetic medication. The patient reports medication allergies, particularly to penicillin and sulfa drugs, and has had adverse reactions to antibiotics in the past. She has had two sections and no vaginal deliveries. Discussed OAB care pathway, including fluid management, dietary modifications, including caffeine intake. Bladder control strategies, including pelvic floor exercises. Discessed that urinary leakage can be related to pelvic floor m uscles weakness and/or bladder spasms. Treatment options discussed for OAB included anticholinergics/antimuscarinics, neuromodulation, bladder botox injection. 30 minutes spent in review of records pertaining to this visit and including stiq-pb-azni discussion with the patient and documentation of this visit. The patient has expressed interest in exploring treatment options such as Botox injections to manage these symptoms. Results - Urodynamics: Uninhibited detrusor contractions observed, no obstructive stress noted during this test, EMG activity within normal limits. Plan 1. Uninhibited Detrusor Contractions - Discussed Botox bladder injection 100 units, no need to stop blood thinners 2. Coronary Artery Disease - Continue current medication regimen including clopidogrel and statins 3. Hypertension - Maintain current antihypertensive therapy with losartan and amlodipine. 4. Diabetes Mellitus - Continue management with metformin and other diabetic medications. 05/22/25--Heidi is a 69-year-old female patient of Dr. Ordonez. She has a past medical history of type 2 diabetes, nonalcoholic fatty liver disease, anxiety, hypertension, and cognitive disorder. She presents to the office today as a new patient for urge incontinence. In discussion with the patient today she reports a previous history of urethral dilation many years ago at the age of 20-21 for ongoing issue she was experiencing with hematuria. She reports she had been doing well up until a few years ago when she started experiencing issues with urge incontinence however feels more recently they have been worsening. She reports she does not always need to utilize Idalmis pads or adult diapers however she feels this is bothersome to her. She does report 1 previous vaginal of her daughter. She denies urinary urgency, urinary frequency, nocturia, hematuria, dysuria, foul smelling urine, changes to urinary stream, flank pain, fever, and or chills. She discusses her life as a grandparent and her who follows up with Dr. Rose here for his ongoing prostate cancer. We did discussed potential causes of urge incontinence as well as further treatment options and risks and benefits of these treatment options. In office urinalysis results reviewed with the patient today. PVR 147 mL. In review of patient's chart it appears A1c is are as follows: 11/30 6.4, 03/30 5.8 We did discussed pelvic floor therapy however she discusses currently undergoing cardiac rehab and asked to pay a 35 dollar co-pay twice a week therefore she is not interested at this time. She also discusses her reluctancy in taking medications in does not wish to trial medications at this time. All questions were answered. She otherwise offers no other issues or concerns at this time. [facility] Medical History GERD (gastroesophageal reflux disease) Cognitive disorder Non-alcoholic fatty liver disease Exhaustion Memory change Anxiety Hypertension Diabetes Abnormal colonoscopy Surgical History H/O heart artery stent S/P cardiac cath History of colonoscopy (~2014) H/O eye surgery H/O cervical spine surgery History of back surgery H/O elbow surgery H/O wrist surgery H/O section Family History Sister Mental health disorder Substance abuse Cardiovascular disease Hypertension Thyroid disease Advancing dementia Brother Cancer Cardiovascular disease Hypertension Paternal Grandfather Cancer Father Cardiovascular disease Hypertension Mother Hypertension Daughter Thyroid disease Social History Household Members: Spouse Both parents involved: No Caregiver staying overnight: No Housing: House Are you a primary animal care technician to a significant other at home: No Do you presently have visiting nurse or other home services: No 75 years or older and lives alone: No Alcohol intake: former Patient Tobacco Use Status: Never used Tobacco e-Cigarette/Vaping Use: Never Used Second Hand Smoke Exposure: No service: No Current occupational status: retired Sexual orientation: Straight/Heterosexual Gender identity: Female Cognitive needs: No Hearing needs: No Vision needs: No Review of Systems Const All systems reviewed & are unremarkable except as noted in HPI and below Reports no additional complaints Eyes Reports no additional complaints ENT Reports no additional complaints Card Reports no additional complaints Resp Reports no additional complaints GI Reports no additional complaints Reports as per HPI Musc Reports no additional complaints Skin/Breast Reports system reviewed and no additional complaints, except as documented Neuro Reports no additional complaints Psych Reports no additional complaints Endo Reports no additional complaints Teo/Lymph Reports no additional complaints Aller/Immun Reports no additional complaints Office Procedures Urodynamic Studies Consent Discussed risk and benefit or proposed procedure with the patient. Information consent for procedure given to the patient. Discussed technical aspects, risks, benefits and alternatives in full. Addressed all of the patient's questions and concerns regarding the procedure. The patient demonstrated knowledge and understanding. They wish to proceed with this procedure. Preparation The patient was prepped in the usual manner. A feed project engineer was present and in the room. Genitalia was prepped with betadine solution in a sterile manner. Prep: The patient was prepped in the usual manner. A feed project engineer was present and in the room. Genitalia was prepped with betadine solution in a sterile manner. Complex Uroflow Complex uroflow performed by: Trish Browne Maximum urinary flow rate (mL/second): 15 Voiding time (seconds): 300 seconds Voided volume (mL): 77ml Residual urine (mL): 20ml Cystometrogram ? Vaginal/rectal catheter type: Vaginal First sensation at (mL): 17mL First desire at (mL): 33 mL Strong desire to void occurred at (mL): 149 mL Strong desire detrusor pressure (cm H2O): 12 Maximum Capacity (mL): 293 mL Voiding Summary Voided with max detrusor pressure of (cm H2O): 53 Maximum flow rate (mL/second): 12mL/s Voided volume (mL): ? 217ml Calculated PVR: 0 mL (Patient voided additional moderate amount once catheters removed) Stress Testing Stress Test at 150 mL: Absent leak with Valsalva, Absentleak with cough DO Dry: 150ml, 200ml, 262ml, 293ml DO Wet: N/a 71782-Notninrykftlpg w/ ELECTRICAL TRANSMISSION ENGINEER 65240-Qjsosij-Yyfflljfyzdb 57774-Baeb/Urinary Muscle Study 22295-Tamqo-Oodopaqse Pressure Test Procedure code (CPT) selection complete Office Meds nitrofurantoin monohydrate/macrocrystals 100 mg capsule Performing Provider: Trish Browne MD [facility] Administered by: Julia Lamar RN on 08/29/25 09:10 Dose Route Admin Location Dispensed Lot Number Expiration Date NDC Back Line Cook 100 mg PO 1 cap Results AMB Urinalysis, Automated UA Leukoctes 0 Chelita/uL Last Edit by Julia Lamar RN on 08/29/25 09:17 UA Nitrite Negative Last Edit by Julia Lamar RN on 08/29/25 09:17 UA Urobilinogen 0.2 mg/dL Last Edit by Julia Lamar RN on 08/29/25 09: 17 UA Protein 0 mg/dL Last Edit by Julia Lamar RN on 08/29/25 09:17 UA pH 6.0 Last Edit by Julia Lamar RN on 08/29/25 09:17 UA Blood 0 Guillermo/uL Last Edit by Julia Lamar RN on 08/29/25 09:17 UA Specific Lisle 1.0 Last Edit by Julia Lamar RN on 08/29/25 09:1 7 UA Ketone Negative Last Edit by Julia Lamar RN on 08/29/25 09:17 UA Bilirubin 0 mg/dL Last Edit by Julia Lamar RN on 08/29/25 09:17 UA Glucose 1000 mg/dL Last Edit by Julia Lamar RN on 08/29/25 09:17 Results Reviewed Results Reviewed: Laboratory Last Values Urine pH (Auto) 6.0 08/29/25 09:16 Specific Lisle (Auto) 1.0 08/29/25 09:16 Urine Protein (Auto) 0 mg/dL 08/29/25 09:16 Glucose (UA)(Auto) 1000 mg/dL 08/29/25 09:16 Urine Ketones (Auto) Negative 08/29/25 09:16 Urine Blood (Auto) 0 Guillermo/uL 08/29/25 09:16 Urine Nitrite (Auto) Negative 08/29/25 09:16 Urine Bilirubin (Auto) 0 mg/dL 08/29/25 09:16 Urine Urobilinogen (Auto) 0.2 mg/dL 08/29/25 09:16 Leukocyte Esterase (Auto) 0 Chelita/uL 08/29/25 09:16 Assessment & Plan Assessment & Plan (1) Detrusor overactivity: Code(s): N32.81 - Overactive bladder Category: Medical (2) OAB (overactive bladder): Code(s): N32.81 - Overactive bladder Category: Medical Plan Plan 1. Uninhibited Detrusor Contractions - Discussed Botox bladder injection 100 units, no need to stop blood thinners 2. Coronary Artery Disease - Continue current medication regimen including clopidogrel and statins 3. Hypertension - Maintain current antihypertensive therapy with losartan and amlodipine. 4. Diabetes Mellitus - Continue management with metformin and other diabetic medications. Orders: Orders AMB Urinalysis Automated 08/29/25 Z13.9 - Encounter for screening, unspecified AMB Urodynamics Studies 08/29/25 N39.45 - Continuous leakage, R33.9 - Retention of urine, unspecified Patient Instructions: The patient had an opportunity to ask questions regarding treatment plan. The patient expressed understanding and agreement with the above treatment plan. The patient is aware they should contact our office by phone for worsening of their current condition or the appearance of new symptoms. Compliance is e ncouraged with any medications and followup testing that is ordered. It is a privilege to be allowed the opportunity to participate in the urologic care of your patient. If you have any questions or concerns regarding treatment for the above conditions please do not hesitate to contact me. The office telephone contact is [phone]. This note is constructed in part using voice recognition software. While every effort has been made to ensure accuracy helper steel fabrication errors may have been included. Yours sincerely, Trish Browne MD Scribe Plan - Not visible on output: Patient was informed and verbally consented to the use of an ambient scribe for clinic note documentation during this visit. Coding Level of Care Code Est Pt Level 4 (51038) Diagnoses Detrusor overactivity N32.81 OAB (overactive bladder) N32.81 CPT Codes Urodynamic Studies - CPT: 96769-Gyqfwtpqhsbhak w/ ELECTRICAL TRANSMISSION ENGINEER ([id number]) Urodynamic Studies - CPT: 74684-Enixyka-Ctfitwwhktwv ([id number]) Urodynamic Studies - CPT: 65874-Kukc/Urinary Muscle Study ([id number]) Urodynamic Studies - CPT: 82333-Nfqxz-Vlfotwsrl Pressure Test ([id number])
== END 2025-08-29 10:16 | disposition home or self-care (01) ==
LOC: HO.HUSH 08:29
PROVIDERS: PCP Nurse Practitioner Family; Visit Provider Urology
DX: N39.45 Continuous leakage (principal); R33.9 Retention of urine, unspecified; Z13.9 Encounter for screening, unspecified
CPT/HCPCS: 51728; 51741; 51784; 51797

== ENCOUNTER → 2025-08-29 08:28 | Outpatient (BNVA) | payer MEDICARE, SELFPAY | PROVIDERS: PCP Nurse Practitioner Family; Visit Provider Urology | DX: N32.81 Overactive bladder (principal); N39.45 Continuous leakage; R33.9 Retention of urine, unspecified; Z13.9 Encounter for screening, unspecified | CPT/HCPCS: 51728; 51741; 51784; 51797; 81003; 99212 ==

== ENCOUNTER 2025-09-02 07:15 | Outpatient (AMB) | payer MEDICARE, SELFPAY ==
--- OUTSIDE RECORDS SUMMARY | 2025-09-02 07:17 | XMS_ITS | Clinical Summary ---
Author Organization [facility] Address [address] [place] [address] Care Team Providers Care Form Coverer Name Role Phone Ngoc Ordonez APRN Primary Care Provider + Beau Hays MD Unavailable [phone] Allergies Active Allergy Reactions Criticality Noted Date [...] Years Used Date Smoking Tobacco: Never Assessed [facility] Utilities Answer Date Recorded In the past 12 months has [employer], oil, or water [employer] threatened to shut off services in your [...] time in the past 12 m [facility], were you homeless or living [...] this topic Medical Devices Implanted Type Area Core Filer Device Identifier Shelf Expiration Date Model / Serial / Lot [id number] Coronary Stent System Synergy Xd Mr 2.25mm 16mm Delivery Sys - [id number] Implanted:Qty : 1 on 12/24/2024 by Santosh Brady MD at [facility] Stent N/A: Coronary [employer] [id number] 02/20/2026 [id number] / [id number] Procedures Procedure Name Priority Date/Time Associated Diagnosis [...] PM [facility] Comment: A1c% Interpretation 5.7 - 6.0 Increase risk of diabetes 6.1 - 6.4 Higher risk of diabetes > or = 6.5 Consistent with diabetes Diabetes Care, 33(Supp 1):S1-S61, 2010 Estimated Average Glucose 140 mg/dL 12/25/2024 5:38 PM [facility] Blood Blood specimen / Unknown 12/25/2024 8:00 AM EST 12/25/2024 8:12 AM EST Keenan Arreguin MD LAB BLOOD ORDERABLES [place] [address], [address] [address] * (ABNORMAL) LIPID PANEL (12/25/2024 5:33 AM EST) Cholesterol, Total 168 <200 mg/dL 2024 8:24 AM EST [facility] Triglycerides 135 <150 mg/dL 12/25/2024 8:24 AM EST [facility] Cholesterol, HDL 43(L) >60 mg/dL 12/25/19 8:24 AM EST [facility] Estimated LDL 98 <130 mg/dL 12/25/2024 8:24 AM EST [facility] Comment: NCEP Guidelines: < 100 mg/dL Optimal 100 - 129 mg/dL Near Optimal/Above Optimal 130 - 159 mg/dL Borderline High 160 - 189 mg/dL High >/= 190 mg/dL Very High Cholesterol/HDL Ratio 3.9 0.0 - 5.0 Ratio 12/25/2024 8:24 AM EST [facility] Comment: Relative Risk Ratio - Male Ratio - Female 0.5 3.4 3.3 1.0 5.0 4.4 2.0 9.6 7.1 3.0 23.4 11.0 Plasma/Serum 12/25/2024 5:33 AM EST 12/25/2024 6:08 AM EST us Kristina PETERS LAB BLOOD ORDERABL ES Final Result [facility] [address] [place] [address], * (ABNORMAL) Comprehensive Metabolic Panel (12/25/2024 5:33 AM EST) Glucose 131(H) 74 - 106 mg/dL 12/25/2024 6:35 AM EST [facility] Comment:Fasting: <100 mg/dL, Non-Fasting: <200 mg/dL (ADA 2005) Blood Urea Nitrogen (BUN) 10 9 - 23 mg/dL 12/25/2024 6:35 AM EST [facility] Creatinine 0.9 0.6 - 1.0 mg/dL 12/25/2024 6:35 AM EST [facility] eGFR 69 >59 12/25/2024 6:35 AM EST [facility] Comment:CKD-EPI (2020) in mL /min/1.73 sq meters. Sodium 139 136 - 145 mmol/L 12/25/2024 6:35 AM EST [facility] Potassium 4.4 3.4 - 4.5 mmol/L 12/25/2024 6:35 AM EST [facility] Chloride 107 98 - 107 mmol/L 12/25/2024 6:35 AM EST [facility] CO2 24 20 - 31 mmol/L 12/25/2024 6:35 AM EST [facility] Calcium 10.1 8.7 - 10.5 mg/dL 12/25/2024 6:35 AM EST [facility] Alkaline Phosphatase 125(H) 32 - 122 U/L 12/25/2024 6:35 AM EST [facility] Aspartate Aminotrans (AST) 79(H) <34 U/L 12/25/2024 6:35 AM EST [facility] Alanine Aminotrans (ALT) 98(H) 7 - 35 U/L 12/25/2024 6:35 AM EST [facility] Bilirubin, Total 0.6 0.3 - 1.2 mg/dL 12/25/2024 6:35 AM EST [facility] Protein, Total 7.5 5.7 - 8.2 g/dL 12/25/2024 6:35 AM EST [facility] Albumin 4.6 3.4 - 4.8 g/dL 12/25/2024 6:35 AM EST [facility] BUN/Creatinine Ratio 11 10.0 - 25.0 Ratio 12/25/2024 6:35 AM EST [facility] Globulin 2.9 1.5 - 3.9 g/dL 12/25/2024 6:35 AM EST [facility] Albumin/Globulin Ratio 1.6 1.5 - 2.5 Ratio 12/25/2024 6:35 AM EST [facility] Anion Gap 8 5 - 15 12/25/2024 6:35 AM EST [facility] Blood (Plasma/Serum) 12/25/2024 5:33 AM EST 12/25/2024 6:08 AM EST us Kristina PETERS LAB BLOOD ORDERABL ES Final Result [facility] [address] [place] [address], from Last 3 Months or Most Recently Relevant to Health Maintenance Insurance BLUE CROSS OUT OF STATE - PPO Advance Directives * Full Code (Latest Code Status on File) Date Activated Date Inactivated Comments 12/24/2024 1:32 PM Care Teams Form Coverer Relationship Specialty Start Date End Date Ngoc Ordonez APRN [address] [place] [phone] PCP - General Family Medicine 12/24/24 Beau Hays MD [address] [place] [address] Primary Printed Circuit Boards Inspector Cardiovascular Disease 01/07/25
--- OUTSIDE RECORDS SUMMARY | 2025-09-02 07:17 | XMS_ITS | Patient Health Record ---
Author Organization [facility] Address [address] [place] [address], [address] [place] [address] Support Name Relationship Address Phone DELON (PI2)BRIDGETT Guarantor Unknown [phone] Reason For Referral No Information Plan Of Treatment No Information
--- NOTE | 2025-09-02 07:21 | A.OFFVIS_ITS ---
Vital Signs 09/02/25 07:22 Height 5 ft Weight 166 lb BMI 32.4 BP 110/64 Intake Visit Reasons: New patient ANNUAl DO not r/s 3x Intake Note: c/o vaginal dryness Cabinet Professional Required: No Information Interpreted: non-clinical & clinical Emergency Telecommunications Dispatcher: Emergency Telecommunications Dispatcher Present (Eboni Baird GT) Accompanied by: Self / Same As Patient Allergies lisinopril Allergy (Severe, Verified 09/02/25 07:24) Anaphylaxis Penicillins Allergy (Severe, Verified 09/02/25 07:24) Unknown Sulfa (Sulfonamide Antibiotics) Allergy (Severe, Verified 09/02/25 07:24) Unknown adhesive Allergy (Intermediate, Verified 09/02/25 07:24) red patches gentamicin Allergy (Unknown, Verified 09/02/25 07:24) Itching Post menopausal: Yes HPI Comments Details: Presenting for annual exam. No complaints. Last Pap/HPV? Last Mammogram was BI-RADS 2 in 02/28 Last Colonoscopy was in 03/28, the patient is in the process of scheduling her next screening colonoscopy Last DEXA scan in 02/28 T-score was -0.7 at the hip and lumbar spine , FRAX risk was 24.7%/4.1 for severe osteoporosis/fracture respectively PFSH Medical History GERD (gastroesophageal reflux disease) Cognitive disorder Non-alcoholic fatty liver disease Exhaustion Memory change Anxiety Hypertension Diabetes Abnormal colonoscopy Surgical History H/O heart artery stent S/P cardiac cath History of colonoscopy (~2014) H/O eye surgery H/O cervical spine surgery History of back surgery H/O elbow surgery H/O wrist surgery H/O section Family History Sister Mental health disorder Substance abuse Cardiovascular disease Hypertension Thyroid disease Advancing dementia Brother Cancer Cardiovascular disease Hypertension Paternal Grandfather Cancer Father Cardiovascular disease Hypertension Mother Hypertension Daughter Thyroid disease Social History Household Members: Spouse Both parents involved: No Caregiver staying overnight: No Housing: House Are you a primary customer care coordinator to a significant other at home: No Do you presently have visiting nurse or other home services: No 75 years or older and lives alone: No Alcohol intake: former Patient Tobacco Use Status: Never used Tobacco e-Cigarette/Vaping Use: Never Used Second Hand Smoke Exposure: No service: No Current occupational status: retired Sexual orientation: Straight/Heterosexual Gender identity: Female Cognitive needs: No Hearing needs: No Vision needs: No Female Reproductive History Menstrual Total pregnancies: 3 Full term: 2 Number of Living Children: 2 Date of Mammogram: 02/28/25 Review of Systems Const All systems reviewed & are unremarkable except as noted in HPI and below Card Reports as per HPI Resp Reports as per HPI GI Reports as per HPI and Reports no additional complaints Reports as per HPI Physical Exam Vital Signs: Last Vital Signs BP 110/64 09/02/25 07:22 BMI result Body Mass Index 32.4 Const General: cooperative, healthy appearing and comfortable Chest Chest palpation & inspection: normal inspection of the chest and normal palpation of entire chest wall Breast/axilla inspection: normal inspection of the breasts and normal inspection of the axillae Breast/axilla palpation: normal palpation of the breasts, normal palpation of the axillae and no axillary lymphadenopathy Resp Effort & Inspection: normal respiratory effort Auscultation: clear to auscultation bilaterally Percussion: percussion normal Cardio Palpation: normal PMI Rate: regular rate Rhythm: regular rhythm Heart sounds: no murmurs and no rubs Peripheral pulses: Peripheral pulses 2+ throughout GI Inspection: Yes normal to inspection Palpation (GI): Soft to palpation, nontender, no guarding, not rigid and No hepatosplenomegaly present Percussion: Yes normal to percussion Auscultation: normal bowel sounds Rectal Exam - Female: deferred General: Yes bladder normal to palpation External Female Exam: No lesion Speculum Exam - Vagina: normal appearance of the vagina, normal palpation, normal vaginal discharge and not erythematous Speculum Exam - Cervix: normal appearance of the cervix and normal palpation Bimanual exam- vagina & uterus: normal bimanual exam, normal palpation, uterine size normal, bladder normal to palpation, consistency normal and normal palpation Bimanual Exam- Adnexa, other: normal adnexae, no masses and no tenderness Assessment & Plan Assessment & Plan (1) Well woman exam: Code(s): Z01.419 - Encounter for gynecological examination (general) (routine) without abnormal findings Category: Medical Plan: Co testing done since there is no record of any recent Co testing Counseled the patient about the recommended dietary allowance of 1200 mg of Calcium & 800 IU of vitamin D. Instructions given the patient to schedule next screening Mammogram in 03/01. The patient is in the process of scheduling her next screening colonoscopy . The patient was instructed to perform monthly self-breast exams and to schedule a 2 week DEXA scan follow-up appointment and an annual exam in a year; All questions answered and the patient verbalized understanding. (2) High risk for fracture due to osteoporosis by DEXA scan: Code(s): M81.0 - Age-related osteoporosis without current pathological fracture Category: Medical Plan: Discussed with the patient the DEXA results and FRAX risk. Discussed with the patient all the options for therapeutic treatment including mechanism of a ctions, risks and benefits of Bisphosphonates (benefits=osteoporosis prevention; Risks=GERD, osteonecrosis of jaw), Raloxifene, (benefits=osteoporosis prevention and breast ca risk reduction; Risks=DVT), Forteo. The patient decided to go ahead with Fosamax so instructions given to the pt on how to take the med: NPO x 30 minutes, large amount of water , stay upright x 30 minutes, inform her dentist of alendronate intake in case invasive dental work. Also Caltrate+D 600 mg x2/day was recommended to the patient. Medications: New alendronate 70 mg PO QWEEK 14 tabs 3RF Coding Level of Care Code New Pt Prev Care >65yr (60903) Diagnoses Well woman exam Z01.419 High risk for fracture due to osteoporosis by DEXA scan M81.0
[2025-09-02 07:22] VITALS: BP 110/64; BMI 32.4
== END 2025-09-02 08:59 | disposition home or self-care (01) ==
LOC: HO.HWS 07:15
PROVIDERS: PCP Nurse Practitioner Family; Visit Provider Obstetrics & Gynecology
DX: Z01.419 Encounter for gynecological examination (general) (routine) without abnormal findings (principal); M81.0 Age-related osteoporosis without current pathological fracture
CPT/HCPCS: 99387; 99459

== ENCOUNTER 2025-09-02 07:15 | Outpatient (REF) | payer MEDICARE, SELFPAY | END 2025-09-02 07:16 | disposition home or self-care (01) | LOC: HO.LNP 07:15 | PROVIDERS: PCP Nurse Practitioner Family; Visit Provider Obstetrics & Gynecology | DX: Z01.419 Encounter for gynecological examination (general) (routine) without abnormal findings (principal); Z11.51 Encounter for screening for human papillomavirus (HPV); M81.0 Age-related osteoporosis without current pathological fracture | CPT/HCPCS: 87626; 88175; 99387 ==

== ENCOUNTER 2025-09-03 12:41 | Outpatient (RCR) | payer MEDICARE, SELFPAY ==
--- NOTE | 2025-09-14 10:36 | MHC.SP.ADU ---
Referring provider: Dr. Vilma Bravo Reason for Referral: Speech/Cognitive Assessment Type of Treatment: 09039 Standardized Cognitive Performance Testing, per hour Date of Plan of Treatment: 09/03/25 Onset of Symptoms/Illness: 04/30/25 Date Treatment Started: 09/03/25 Medical Diagnosis: other symptoms and signs involving cognitive functions and awareness; Unspecified mental disorder due to known physiological condition. Primary Speech Language Diagnosis: I69.911 Memory deficit Secondary Speech Language Diagnosis: History Heidi Hazel is a 69 year old woman who was referred for a speech/cognitive assessment by her Neurologist, Dr. Vilma Bravo. Heidi reported that she went to see Dr. Bravo because she was concerned she was having memory issues, and given her extensive family history of Alzheimer's disease (mother, maternal uncles and aunts and maternal grandparents), she is worried it is a sign of decline. Heidi indicated that her most often notes that she forgot something he told her, but endorsed that at times he might mention something in the midst of her being engaged in other activities, so she was unlikely to remember. However she also can forget conversations and occasionally forget to take medication. Heidi is also one of twins, and reported that her twin sister has significant ADHD, and she has always wondered if she also has difficulty with her attention. 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 Heidi was also the principal provider in her family, as her mostly worked in a low paying job and retired early. 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 She was most recently employed in a position in [place] where she lived for many years, but retired two years ago when she and her move to this area to be closer to one of her daughters and grandchildren. She has a second daughter who lives in [place]. Heidi was very cooperative, forthcoming, and pleasant throughout this evaluation, though she presented at times as being quite intense, verbally prolific, and mildly irritated when talking about her family and life circumstances. Medical History: Heidi reported that she had a heart attack in December of this year, and that she has cystitis. Her neurology report indicates a history of Anxiety/Depression, Hypertention, Non Alcoholic Fatty Liver Disease, and memory changes. Medication List: Please see chart Recent Hospitalizations: No Respiratory Needs: Room Air Patient Orientation: Alert & Oriented x 4 Social History: Employment Status: Retired Highest level of education obtained: Completed Bachelor's Current Living Situation: Lives with her in a private residence in [place]. Past Speech Language Therapy: None Other Therapies Seen in Current Calendar Year: None Reported Speech, Language, Cognition difficulties: Memory, attention Comments: Heidi is concerned about her memory and if she is at the beginning of cognitive decline given her family history of Alzheimer's disease. She is also concerned about her attention, as her twin sister has a long history of ADHD. Quality of Life: Excellent Patient Stated Goal of Speech-Language Therapy: Obtain more information about her needs. Assessment Tests of Cognition: RBANS Clinical Impression: Intact Observations: The Repeatable Battery for the Assessment of Neuropsychological Status (RBANS) was used as a screening instrument to briefly assess Heidi?s cognitive skills. The RBANS-(Updated Form A) briefly assesses aspects of cognitive memory, language, and attention skills. The RBANS is considered a screening battery for cognitive function and is repeatable for the purpose of evaluating any changes in function. It is intended for use with adolescents and adults, ages 12 to 89 years. Composite domains assessed in this test are: Immediate Memory, Visuospatial/Constructional, Language, Attention, and Delayed Memory. Interpretation of test performance is based on normative data on individuals between ages 60-69. Heidi?s performance is summarized below: IMMEDIATE MEMORY: This domain assesses the individual's ability to remember information immediately after it is presented. For the ?List Learning? task, Hedii was read a list of 10 words and asked to repeat back as many words as she could. She was then read the same list four times. On this test Heidi initially recalled one word at the beginning of the list and one word at the end of the list. On subsequent trials, she consistently recalled and added more words from the list, and on the final trial she recalled seven of the ten words. She reported her strategy was to focus each time on words she had not recalled previously. However due to her initial difficulty, her score on this subtest fell in the below average range. On the ?Story Memory? task, a brief story is read by the examiner two times, with the subject required to repeat back as much as they remember each time. Heidi was able to remember half of the details on the first reading, then 11/12 details on the second reading. The score on this subtests fell in the average range. Both scores, cumulatively on the composite score for Immediate Memory, fell in the borderline/ low average range, indicating an area of mild difficulty for Heidi. List Learning Total Score: 20 Scaled Score: 4 Interpretation: Below Average Story Memory Total Score: 17 Scaled Score: 11 Interpretation: Average Immediate Memory Index Score: 85 Percentile: 16 Interpretation: Border Line/Low Average VISUOSPATIAL/CONSTRUCTIONAL: This domain assesses the individual's ability to perceive spatial relations and to construct a spatially accurate copy of a drawing. During the Figure Copy task, Heidi was given an example of a specific figure to copy onto a piece of paper. Individuals are scored on both the drawing accuracy and placement of 10 different target items. Heidi?s drawing included all of the elements of the drawing with, demonstrating an above average score. Heidi then worked efficiently and with good accuracy on the Line Orientation task, in which an individual is asked to transpose two line segments of an angle to a compass diagram above it,in order to label each segment. Heidi's score on this subtest fell in the high average range. These scores combined for the visuospatial/constructional domain, resulted in an average score overall. Figure Copy Total Score: 20 Scaled Score: 14 Interpretation: Above Average Line Orientation Total Score: 18 Percentile Group: 51-75 Interpretation: High Average Visuospatial/Constructional Index Score: 108 Percentile: 70 Interpretation: HIgh Average LANGUAGE: This domain assesses the individual's ability to respond verbally to either naming or retrieving learned material. Heidi was asked to label various line drawings in a responsive naming task and then asked to name as many fruits and vegetables as she could in one minute in a Semantic Fluency task. Heidi named 10 out of 10 drawings readily with no hesitancies or difficulty, with her score falling in the high average range. Heidi labeled 25 ?zoo animals? in sixty seconds, demonstrating good fluency on this task. Her score overall fell in the High Average range. Picture Naming Total Score: 10 Percentile Group: 51-75 Interpretation: High Average Semantic Fluency Total Score: 25 Scaled Score: 12 Interpretation: High Average Language Index Score: 108 Percentile: 70 Interpretation: High Average ATTENTION: This domain assesses the individual's capacity to remember and manipulate both visually and orally presented information in short-term memory storage Heidi was read aloud strings of numbers of varying lengths then asked to recall the numbers. Heidi, repeated up to a 7 number sequence with excellent accuracy, made a single error on eight numbers. Heidi had remarkable focus and accuracy on this task, demonstrating an above average score. In the coding subtest, Heidi was asked to write numbers to their matching symbols as quickly and efficiently as possible within 90 seconds. Heidi worked at a good rate and accurately through this task, demonstrating an average score. For the overall ?Attention? domain score, Heidi fell in the high average range for her age group. Digit Span Total Score: 14 Scaled Score: 15 Interpretation: Above Average Coding Total Score: 48 Scaled Score: 10 Interpretation: Average Attention Index Score: 118 Percentile: 88 Interpretation: High Average DELAYED MEMORY: This domain assesses the individual's anterograde memory capacity. Low scores indicate difficulties with recognition and retrieval of information from long-term memory stores. Heidi struggled to recall the words on the wordlist that was presented to her earlier in the testing, demonstrating a below average score on this task. However, when given a recognition task regarding words on the list (i.e. ?Was apple on the list??) Heidi was able to identify almost all of the words on the list when given this level of cuing (19/20), with her score falling in the average range. On recalling the story that was read to her at the beginning of the assessment, Heidi recalled every detail from the story, including one element she had left out when this task was first administered, with her score on this subtest falling in the above average range. Finally, when asked to recall the figure she angelica with good accuracy at the beginning of the test, Heidi recalledmost of the elements of the drawing, which resulted in a high average score on this subtest. Given her scatter of scores from below average in one area to high or above average in some areas, Heidi?s score for delayed recall of information overall fell in the average range. List Recall Total Score: 2 Percentile Group: 3-9 Interpretation: Below Average List Recognition Total Score: 19 Percentile Group: 26-50 Interpretation: Average Story Recall Total Score: 12 Scaled Score: 15 Interpretation: Above Average Figure Recall Total Score: 18 Scaled Score: 14 Interpretation: High Average Delayed Memory Index Score: 106 Percentile: 66 Interpretation: Average The Total Test Score on the RBANS represents a summation of the individual index scores across five cognitive domains, providing an overall measure of a person's cognitive functioning, with a higher score indicating better cognitive performance; a mean score of 100 is considered average, and a standard deviation of 15 is used to interpret the severity of any cognitive impairment based on the individual's score relative to the norm. On the total test, Heidi demonstrated a high average score overall. TOTAL TEST: Sum of Index Scores: 538 Total Scale Score: 110 Percentile: 75 Interpretation: High Average Summary/Conclusions: Heidi presented today with generally very strong skills with her memory, language and attention. She has some mild difficulty with short term memory for briefly presented auditory information, however her score on this specific test on this battery was still within the average range of expectations. Heidi reported that on previous cognitive tests when she was younger, she had demonstrated above average abilities. She continues to demonstrate strengths on this brief assessment of cognitive function. Impressions and Recommendations Summary: On a brief screening test of cognitive domains, Heidi generally presented with skills within or above the average range of function for her age group. She demonstrated a relative area of weakness in the area of short term auditory memory, however even in this domain, skills fell within the low average range of function. Notably, however, was Heidi's attention skills, which, rather than distractibility, indicated hyper focus. Heidi also was quite verbose, though not to a level that was pragmatically inappropriate. However these features together may indicate an atypical Attentional issue that would need further evaluation by either a medicare insurance specialist or a neuropsychologist, particularly as Heidi is questioning her attention needs, relative to her twin sister having chronic ADHD. Also, given her strong family history of Alzheimer's Dementia, Heidi may further benefit from a more in depth and diagnostic evaluation from a Neuropsychologist. Heidi today presented with generally very strong cognitive skills, therefore, direct cognitive therapy is not indicated at this time. It was, however a pleasure to meet and work with Heidi Impact on Daily Function/Activity Limitations: Daily Activities: None Interpersonal Interactions: None Education: None Employment: None Community: None Recommended Referrals to be Discussed with Primary Care Provider: Neuropsychological Eval Other: See Comment or behavioral psychological evaluation for attention needs. 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
== END 2025-09-16 11:37 | disposition home or self-care (01) ==
LOC: HO.SH 12:41
PROVIDERS: PCP Nurse Practitioner Family; Visit Provider Psychiatry & Neurology Neurology
DX: R41.89 Other symptoms and signs involving cognitive functions and awareness (principal); F09 Unspecified mental disorder due to known physiological condition
CPT/HCPCS: 96125

== ENCOUNTER 2025-09-08 13:12 | Outpatient (AMB) | payer MEDICARE, SELFPAY ==
[2025-09-08 13:20] VITALS: BP 118/62; PULSE 83; BMI 33.1
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
== END 2025-09-08 13:42 | disposition home or self-care (01) ==
LOC: HO.HCS 13:13
PROVIDERS: PCP Nurse Practitioner Family; Visit Provider Internal Medicine
DX: I25.10 Atherosclerotic heart disease of native coronary artery without angina pectoris (principal); Z95.5 Presence of coronary angioplasty implant and graft; E11.8 Type 2 diabetes mellitus with unspecified complications; I15.2 Hypertension secondary to endocrine disorders
CPT/HCPCS: 93010; 99214; G2211

== ENCOUNTER → 2025-09-08 13:12 | Outpatient (BNVA) | payer MEDICARE, SELFPAY | PROVIDERS: PCP Nurse Practitioner Family; Visit Provider Internal Medicine | DX: I25.10 Atherosclerotic heart disease of native coronary artery without angina pectoris (principal); I15.2 Hypertension secondary to endocrine disorders; Z98.890 Other specified postprocedural states; Z95.5 Presence of coronary angioplasty implant and graft | CPT/HCPCS: 93005; 99212 ==

== ENCOUNTER 2025-10-08 08:43 | Outpatient (REF) | payer MEDICARE, SELFPAY ==
--- OUTSIDE RECORDS SUMMARY | 2025-10-08 09:00 | XMS_ITS | Clinical Summary ---
Author Organization Formerly [facility] Address [address] [place] [address] Care Team Providers Care Crm Marketing Analyst Name Role Phone Ngoc Ordonez APRN Primary Care Provider + Beau Hays MD Unavailable [phone] Allergies Active Allergy Reactions Criticality Noted Date [...] Years Used Date Smoking Tobacco: Never Assessed [facility] Utilities Answer Date Recorded In the past 12 months has [employer], oil, or water [employer] threatened to shut off services in your [...] in the past 12 m [facility], were you homeless or living in a chcf (including now)? No 12/25/2024 Comments Unknown Sex [...] this topic Medical Devices Implanted Type [employer] Professor Device Identifier Shelf Expiration Date Model / Serial / Lot [id number] Coronary Stent System Synergy Xd Mr 2.25mm 16mm Delivery Sys - [id number] Implanted:Qty : 1 on 12/24/2024 by Santosh Brady MD at [facility] Stent N/A: Coronary [employer] [id number] 02/20/2026 [id number] / / [id number] Procedures Procedure Name Priority Date/Time Associated Diagnosis [...] A1C 6.5(H) <5.7 % 12/25/2024 5:38 PM [facility] Comment: A1c% Interpretation 5.7 - 6.0 Increase risk of diabetes 6.1 - 6.4 Higher risk of diabetes > or = 6.5 Consistent with diabetes Diabetes Care, 33(Supp 1):S1-S61, 2010 Estimated Average Glucose 140 mg/dL 12/25/2024 5:38 PM [facility] Blood Blood specimen / Unknown 12/25/2024 8:00 AM EST 12/25/2024 8:12 AM EST Keenan Arreguin MD LAB BLOOD ORDERAB[place] [address], [address] [address] * (ABNORMAL) LIPID PANEL (12/25/2024 5:33 AM EST) Cholesterol, Total 168 <200 mg/dL 2024 8:24 AM EST [facility] Triglycerides 135 <150 mg/dL 12/25/2024 8:24 AM EST [facility] Cholesterol, HDL 43(L) >60 mg/dL 12/25/19 8:24 AM EST [facility] Estimated LDL 98 <130 mg/dL 12/25/2024 8:24 AM EST [facility] Comment: NCEP Guidelines: < 100 mg/dL Optimal 100 - 129 mg/dL Near Optimal/Above Optimal 130 - 159 mg/dL Borderline High 160 - 189 mg/dL High >/= 190 mg/dL Very High Cholesterol/HDL Ratio 3.9 0.0 - 5.0 Ratio 12/25/2024 8:24 AM EST [facility] Comment: Relative Risk Ratio - Male Ratio - Female 0.5 3.4 3.3 1.0 5.0 4.4 2.0 9.6 7.1 3.0 23.4 11.0 Plasma/Serum 12/25/2024 5:33 AM EST 12/25/2024 6:08 AM EST us Kristina PETERS LAB BLOOD ORDERABL ES Final Result [facility] [address] [place] [address], * (ABNORMAL) Comprehensive Metabolic Panel (12/25/2024 5:33 AM EST) Glucose 131(H) 74 - 106 mg/dL 12/25/2024 6:35 AM EST [facility] Comment:Fasting: <100 mg/dL, Non-Fasting: <200 mg/dL (ADA 2005) Blood Urea Nitrogen (BUN) 10 9 - 23 mg/dL 12/25/2024 6:35 AM EST [facility] Creatinine 0.9 0.6 - 1.0 mg/dL 12/25/2024 6:35 AM EST [facility] eGFR 69 >59 12/25/2024 6:35 AM EST [facility] Comment:CKD-EPI (2020) in mL /min/1.73 sq meters. Sodium 139 136 - 145 mmol/L 12/25/2024 6:35 AM EST [facility] Potassium 4.4 3.4 - 4.5 mmol/L 12/25/2024 6:35 AM EST [facility] Chloride 107 98 - 107 mmol/L 12/25/2024 6:35 AM EST [facility] CO2 24 20 - 31 mmol/L 12/25/2024 6:35 AM EST [facility] Calcium 10.1 8.7 - 10.5 mg/dL 12/25/2024 6:35 AM EST [facility] Alkaline Phosphatase 125(H) 32 - 122 U/L 12/25/2024 6:35 AM EST [facility] Aspartate Aminotrans (AST) 79(H) <34 U/L 12/25/2024 6:35 AM EST [facility] Alanine Aminotrans (ALT) 98(H) 7 - 35 U/L 12/25/2024 6:35 AM EST [facility] Bilirubin, Total 0.6 0.3 - 1.2 mg/dL 12/25/2024 6:35 AM EST [facility] Protein, Total 7.5 5.7 - 8.2 g/dL 12/25/2024 6:35 AM EST [facility] Albumin 4.6 3.4 - 4.8 g/dL 12/25/2024 6:35 AM EST [facility] BUN/Creatinine Ratio 11 10.0 - 25.0 Ratio 12/25/2024 6:35 AM EST [facility] Globulin 2.9 1.5 - 3.9 g/dL 12/25/2024 6:35 AM EST [facility] Albumin/Globulin Ratio 1.6 1.5 - 2.5 Ratio 12/25/2024 6:35 AM EST [facility] Anion Gap 8 5 - 15 12/25/2024 6:35 AM EST [facility] Blood (Plasma/Serum) 12/25/2024 5:33 AM EST 12/25/2024 6:08 AM EST us Kristina PETERS LAB BLOOD ORDERABL ES Final Result [facility] [address] [place] [address], from Last 3 Months or Most Recently Relevant to Health Maintenance Insurance BLUE CROSS OUT OF STATE - PPO Advance Directives * Full Code (Latest Code Status on File) Date Activated Date Inactivated Comments 12/24/2024 1:32 PM Care Teams Crm Marketing Analyst Relationship Specialty Start Date End Date Ngoc Ordonez APRN [address] [place] [phone] PCP - General Family Medicine 12/24/24 Beau Hays MD [address] [place] [address] Primary Project Manager Entertainment [employer] Media Cardiovascular Disease 01/07/25
[2025-10-08 11:30] LABS: Hematocrit 38.6 % (37.0-47.0); Hemoglobin 12.1 g/dl (12.0-16.0); Mean Corpuscular HGB Conc 31.3 g/dl (31.0-35.0); Mean Corpuscular Hemoglobin 28.1 pg (27.0-33.0); Mean Corpuscular Volume 89.8 fL (80.0-98.0); NRBC Abs Auto 0.000 X10*3/uL (0.0-0.012); NRBC Pct Auto 0.0 /100WBC (0.0-0.2); Platelet Count 331 X10*3/uL (160-400); Red Blood Count 4.30 X10*6/uL (4.20-5.50); White Blood Count 5.4 X10*3/uL (4.8-10.8)
[2025-10-08 11:55] LABS: Alanine Aminotransferase 47 U/L (0-31); Albumin Level 4.8 g/dL (3.5-5.0); Alkaline Phosphatase 119 U/L (39-117); Anion Gap 13 (12-20); Aspartate Amino Transferase 51 U/L (5-31); Blood Urea Nitrogen 24 mg/dL (9-16); Calcium 10.0 mg/dL (8.4-10.2); Carbon Dioxide 27 mmol/L (22-29); Chloride 104 mmol/L (96-108); Cholesterol 113 mg/dL (<200); Estimated Glomerular Filt Rate > 60; HDL Cholesterol 43 mg/dL (>40); Potassium 4.1 mmol/L (3.3-5.1); Sodium 140 mmol/L (135-145); Total Protein 7.5 g/dL (6.5-8.0); Triglycerides 167 mg/dL (<150)
[2025-10-08 12:02] LABS: Microalbum/Creatinine Ratio Ur 17.6 ug/mg cr (<30)
[2025-10-08 12:12] LABS: Folate 14.7 ng/mL (> or = 4.0); Vitamin B12 1131 pg/mL (200-900)
== END 2025-10-08 08:44 | disposition home or self-care (01) ==
LOC: HO.WFDLDS 08:43
PROVIDERS: Visit Provider Nurse Practitioner Family
DX: I25.10 Atherosclerotic heart disease of native coronary artery without angina pectoris (principal); E11.8 Type 2 diabetes mellitus with unspecified complications; I15.2 Hypertension secondary to endocrine disorders; K76.0 Fatty (change of) liver, not elsewhere classified; Z95.5 Presence of coronary angioplasty implant and graft
CPT/HCPCS: 36415; 80053; 80061; 82043; 82306; 82570; 82607; 82746; 83036; 84443; 85027